=== PATIENT | female | born 1955 | race Caucasian/White ===

== ENCOUNTER → 2017-12-26 09:30 | Outpatient (CLI) | payer OTHER, SELFPAY ==
--- NOTE | 2017-12-26 09:34 | RAD_ITS ---
STUDY: X-RAY - SACRUM/COCCYX REASON FOR EXAM: Female, 62 years old. Pain in the lower back. TECHNIQUE: 3 view(s) of the sacrum and coccyx were obtained. COMPARISON: None. FINDINGS: Disc space narrowing at the L4-L5 and L5-S1 levels. There is degenerative arthrosis of the bilateral sacroiliac joints. Normal visualized sacral ala and fused sacral bodies. Normal sacrococcygeal junction with a normal angulation. Normal coccygeal segments. The presacral soft tissue structures are unremarkable. 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 Electronically Signed: Ankur Galeano MD at 11:32 EST Tel [phone], Service support ,
--- NOTE | 2017-12-26 09:38 | RAD_ITS ---
STUDY: X-RAY - CERVICAL SPINE REASON FOR EXAM: Female, 62 years old. Pain. Right upper extremity pain as well. TECHNIQUE: 6 view(s) of the cervical spine were obtained including oblique views. COMPARISON: None FINDINGS: Normal anterior atlantoaxial articulation. Normal odontoid process. There is straightening of the normal cervical lordosis. There is multi-level endplate spondylosis. There is multi-level degenerative disc disease with multilevel disc space narrowing. Normal visualized intervertebral neuroforamina. The soft tissue structures are unremarkable. RAD/Cerv Spine 4 or 5 Views IMPRESSION: Straightening of the normal cervical lordosis. Multilevel disc space narrowing and spondylosis. Electronically Signed: Ankur Galeano MD at 11:33 EST Tel [phone], Service support ,
== END ==
PROVIDERS: Family Provider Family Medicine; PCP Family Medicine; Visit Provider Family Medicine
DX: M50.30 Other cervical disc degeneration, unspecified cervical region (principal)
CPT/HCPCS: 72050; 72220

== ENCOUNTER → 2018-02-15 16:24 | Outpatient (CLI) | payer OTHER, SELFPAY ==
--- NOTE | 2018-02-15 16:28 | RAD_ITS ---
STUDY: X-RAY CHEST REASON FOR EXAM: Female, 62 years old. Chest tightness x2 weeks TECHNIQUE: PA and lateral views of the chest. COMPARISON: None. FINDINGS: The lungs are clear and expanded. There is no demonstrated pleural abnormality. Normal size heart. Normal mediastinum and boris. Normal visualized pulmonary arteries. Normal visualized aortic arch and descending thoracic aorta. There are diffuse degenerative changes of the visualized thoracic spine. Normal visualized ribs, clavicles, and shoulders. There is no demonstrated abnormality of the visualized soft tissue structures of the upper abdomen. RAD/Chest PA and Lateral IMPRESSION: Degenerative changes, as described above. No demonstrated acute cardiopulmonary process. Electronically Signed: Caleb Cuenca MD at 17:00 EDT , Service support ,
== END ==
PROVIDERS: Family Provider Family Medicine; PCP Family Medicine; Visit Provider Nurse Practitioner Adult Health
DX: R05 Cough (principal)
CPT/HCPCS: 71046

== ENCOUNTER → 2018-07-07 12:58 | Outpatient (CLI) | payer OTHER, SELFPAY | PROVIDERS: Family Provider Family Medicine; PCP Family Medicine; Visit Provider Family Medicine | DX: I83.93 Asymptomatic varicose veins of bilateral lower extremities (principal) | CPT/HCPCS: 93970 ==

== ENCOUNTER → 2018-08-31 13:48 | Outpatient (CLI) | payer OTHER, SELFPAY ==
--- NOTE | 2018-08-31 14:05 | US_ITS ---
STUDY: ULTRASOUND TRANSVAGINAL CLINICAL: Female, 63 years old. Ovarian cyst TECHNIQUE: Transvaginal # of Images: 36 COMPARISON: None. FINDINGS: The uterus has been removed. Normal right ovary, measuring 1.3 x 1.4 x 0.4 cm. There are multiple follicles without a dominant cyst. Normal left ovary, measuring 1.3 x 1 x 0.5 cm. There are multiple follicles without a dominant cyst. There is no free fluid in the pelvis. US/Transvaginal Non- IMPRESSION: Unremarkable study. There is no evidence of ovarian cysts. Electronically Signed: Reed Laguerre MD at 14:58 EDT Tel , Service support ,
== END ==
PROVIDERS: Family Provider Family Medicine; PCP Family Medicine; Referring Provider Family Medicine; Visit Provider Family Medicine
DX: N83.201 Unspecified ovarian cyst, right side (principal); N83.202 Unspecified ovarian cyst, left side
CPT/HCPCS: 76830

== ENCOUNTER → 2018-10-10 11:06 | Outpatient (CLI) | payer OTHER, SELFPAY ==
[2018-10-10 12:55] LABS: ALB/GLOB Ratio 1.1 RATIO (0.9-2.4); AST(SGOT) 17 U/L (15-37); Alanine Aminotransfer ALT/SGPT 32 U/L (13-56); Albumin, Serum 3.6 g/dL (3.2-5.0); Alkaline Phosphatase 76 U/L (45-117); Anion Gap 8 (5-15); BUN 14 mg/dL (7-18); BUN/Creat Ratio 16.9 RATIO (10-20); Calcium,Total 8.9 mg/dL (8.5-10.1); Chloride 104 mmol/L (98-107); Cholesterol 303 mg/dL (200); Creatinine, Serum 0.83 mg/dL (0.55-1.02); EST Glomerular Filtration Rate 74 mL/min (>60); Est Glom Filt Rate - Afr Amer 90 mL/min (>60); Globulin 3.4 g/dL (2.2-4.2); Glucose 106 mg/dL (74-106); High Density Lipoprotein 53 mg/dL; Potassium 4.1 mmol/L (3.5-5.1); Sodium Level 141 mmol/L (136-145); T4 Free Direct 1.19 ng/dL (0.76-1.46); Triglycerides 183 mg/dL; Very Low Density Lipoprotein 37 mg/dL (5-40)
[2018-10-10 13:06] LABS: Vitamin D,25 Hydroxy 30.1 ng/mL (29.95-100.01)
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
== END ==
PROVIDERS: Family Provider Family Medicine; PCP Family Medicine; Referring Provider Family Medicine; Visit Provider Family Medicine
DX: E03.9 Hypothyroidism, unspecified (principal); F32.9 Major depressive disorder, single episode, unspecified; Z13.220 Encounter for screening for lipoid disorders; Z13.1 Encounter for screening for diabetes mellitus
CPT/HCPCS: 36415; 80053; 80061; 82306; 84439; 84443

== ENCOUNTER → 2018-11-27 08:39 | Outpatient (CLI) | payer OTHER, SELFPAY ==
[2018-10-26 15:02] VITALS: BMI 33.0
--- NOTE | 2018-11-27 08:42 | BI_ITS ---
MAMMOGRAPHY - BILATERAL SCREENING REASON FOR EXAM: Female, 63 years old. Routine annual screening examination. PERTINENT HISTORY: Aunt with breast cancer. Chronic right nipple inversion. TECHNIQUE: Digital bilateral breast reji (3D mammographic acquisition) in the CC and MLO projections. 2-D mediolateral oblique (MLO) and craniocaudad (CC) views of both breasts were obtained. CAD: Full Field Digital Mammography with Computer Added Detection was performed. COMPARISON: Comparison is made with prior study dated February 04, 2017 and October 18, 2014. FINDINGS: Breast Composition: There are scattered areas of fibroglandular density. There are no dominant masses or suspicious calcifications. Stable inversion of the right nipple. No other significant abnormalities are identified. There has been no significant change since the prior study. BI/SCREEN MAMM (CAD) W/REJI BILAT IMPRESSION: Stable bilateral screening mammogram. Yearly follow-up mammogram recommended. (A) ASSESSMENT CATEGORY: BIRADS Category 2: Benign. A letter regarding these results will be sent to the patient by the facility within 30 days. Approximately 10% of breast cancers are not detected by mammography. A normal mammogram should not delay biopsy of a clinically suspicious abnormality. [id number] Electronically Signed: Ankur Galeano MD at 12:16 EST Tel [phone], Service support ,
== END ==
PROVIDERS: Family Provider Family Medicine; PCP Family Medicine; Referring Provider Family Medicine; Visit Provider Family Medicine
DX: Z12.31 Encounter for screening mammogram for malignant neoplasm of breast (principal)
CPT/HCPCS: 77063; 77067

== ENCOUNTER → 2019-02-19 09:57 | Outpatient (CLI) | payer OTHER, SELFPAY ==
[2019-01-24 09:14] VITALS: BMI 33.0
[2019-02-19 13:01] LABS: Cholesterol 245 mg/dL (200); Free T3 2.7 pg/mL (2.18-3.98); High Density Lipoprotein 57 mg/dL; T4 Free Direct 1.02 ng/dL (0.76-1.46); Thyroid Stim Hormone (TSH) 0.34 uIU/mL (0.358-3.74); Triglycerides 128 mg/dL; Very Low Density Lipoprotein 26 mg/dL (5-40)
== END ==
PROVIDERS: Family Provider Family Medicine; PCP Family Medicine; Visit Provider Family Medicine
DX: E78.5 Hyperlipidemia, unspecified (principal)
CPT/HCPCS: 36415; 80061; 84439; 84443; 84481

== ENCOUNTER → 2019-08-31 08:34 | Outpatient (CLI) | payer OTHER, SELFPAY ==
[2019-01-24 09:14] VITALS: BMI 33.0
[2019-08-31 10:43] LABS: Cholesterol 241 mg/dL (200); High Density Lipoprotein 47 mg/dL; Triglycerides 148 mg/dL; Very Low Density Lipoprotein 30 mg/dL (5-40)
== END ==
PROVIDERS: Family Medicine; Family Provider Family Medicine; PCP Family Medicine; Referring Provider Family Medicine; Visit Provider Family Medicine
DX: E78.5 Hyperlipidemia, unspecified (principal)
CPT/HCPCS: 36415; 80061

== ENCOUNTER → 2019-09-11 15:44 | Outpatient (CLI) | payer OTHER, SELFPAY ==
[2019-01-24 09:14] VITALS: BMI 33.0
--- NOTE | 2019-09-11 15:47 | RAD_ITS ---
HISTORY: leg pain TECHNIQUE: Lumbar spine 5 views Number of images including paperwork: 5 COMPARISON: None FINDINGS: VERTEBRAE: No acute fracture. VERTEBRAL ALIGNMENT: No traumatic subluxation. DISKS AND JOINTS: Disc heights are maintained. Facet arthropathy. SOFT TISSUES: Unremarkable paraspinous soft tissues. RAD/L/S Spine Min 4 Views IMPRESSION: 1. No acute abnormality. 2. Facet arthropathy. at 0109 Reported and signed by: Tawana Shanks MD Electronically Signed: Tawana Shanks MD at 1:09 EDT Tel , Service support ,
[2019-09-11 18:02] LABS: Absolute Lymphocyte Count 2.07 X10^3/uL (0.83-4.51); Absolute Neutrophil Count 3.8 X10^3/uL (2.0-7.7); Basophil# 0.05 X10^3/uL; Basophil% 0.8 % (0-1); Eosinophil# 0.21 X10^3/uL; Eosinophils% 3.2 % (0-5); Hematocrit 42.5 % (37-47); Hemoglobin 13.1 g/dL (12.0-15.0); Lymphocyte # 2.07 X10^3/ul (4.0); Lymphocyte % 31.2 % (19-41); Mean Corp Hgb Conc 30.8 g/dL (32-36); Mean Corpuscular Hgb 28.9 pg (27.0-32.0); Mean Corpuscular Volume 93.8 fL (81-99); Mean Platelet Vol. 10.2 fl (6.2-12.0); Monocyte# 0.48 X10^3/uL; Monocyte% 7.2 % (0-10); NRBC Flagged by Analyzer 0 % (0-5); Neutrophil # 3.82 X10^3/uL (2.7-7.7); Neutrophil % 57.4 % (47-70); Platelet Count 227 K/mm3 (150-450); RBC Distribution Width CV 13.7 % (11.6-14.6); Red Blood Count 4.53 M/mm3 (4.2-5.4); White Blood Count 6.6 K/mm3 (4.4-11.0)
[2019-09-11 18:18] LABS: Vitamin B12 708 pg/mL (211-911); Vitamin D,25 Hydroxy 34.1 ng/mL (29.95-100.01)
[2019-09-11 18:32] LABS: ALB/GLOB Ratio 1.2 RATIO (0.9-2.4); AST(SGOT) 14 U/L (15-37); Alanine Aminotransfer ALT/SGPT 21 U/L (13-56); Albumin, Serum 3.8 g/dL (3.2-5.0); Alkaline Phosphatase 79 U/L (45-117); Anion Gap 5 (5-15); BUN 14 mg/dL (7-18); BUN/Creat Ratio 18.5 RATIO (10-20); Calcium,Total 9.1 mg/dL (8.5-10.1); Chloride 106 mmol/L (98-107); Creatinine, Serum 0.76 mg/dL (0.55-1.02); EST Glomerular Filtration Rate 82 mL/min (>60); Est Glom Filt Rate - Afr Amer 100 mL/min (>60); Ferritin 48 ng/mL (8-252); Free T3 2.6 pg/mL (2.18-3.98); Globulin 3.3 g/dL (2.2-4.2); Glucose 105 mg/dL (74-106); Iron 71 ug/dL (50-170); Potassium 3.8 mmol/L (3.5-5.1); Protein, Total 7.1 g/dL (6.4-8.2); Sodium Level 141 mmol/L (136-145); T4 Free Direct 1.04 ng/dL (0.76-1.46); Thyroid Stim Hormone (TSH) 1.68 uIU/mL (0.358-3.74)
== END ==
PROVIDERS: Family Provider Family Medicine; PCP Family Medicine; Referring Provider Family Medicine; Visit Provider Family Medicine
DX: M79.606 Pain in leg, unspecified (principal); R53.83 Other fatigue; E03.9 Hypothyroidism, unspecified
CPT/HCPCS: 36415; 72110; 80053; 82306; 82607; 82728; 83540; 84439; 84443; 84481; 85025

== ENCOUNTER → 2020-03-12 09:27 | Outpatient (CLI) | payer OTHER, SELFPAY ==
[2019-12-18 11:17] VITALS: BMI 33.0
[2020-03-12 10:04] LABS: Hematocrit 43.3 % (37-47); Hemoglobin 13.2 g/dL (12.0-15.0); Mean Corp Hgb Conc 30.5 g/dL (32-36); Mean Corpuscular Hgb 28.6 pg (27.0-32.0); Mean Corpuscular Volume 93.7 fL (81-99); Mean Platelet Vol. 9.9 fl (6.2-12.0); Platelet Count 261 K/mm3 (150-450); RBC Distribution Width CV 14.2 % (11.6-14.6); RBC Distribution Width SD 48.9 fl (35.1-43.9); Red Blood Count 4.62 M/mm3 (4.2-5.4)
[2020-03-12 10:19] LABS: Vitamin D,25 Hydroxy 40.4 ng/mL
[2020-03-12 10:26] LABS: Cholesterol 267 mg/dL (200); High Density Lipoprotein 59 mg/dL; Thyroid Stim Hormone (TSH) 0.99 uIU/mL (0.358-3.74); Triglycerides 137 mg/dL; Very Low Density Lipoprotein 27 mg/dL (5-40)
== END ==
PROVIDERS: PCP Family Medicine; Referring Provider Family Medicine; Visit Provider Family Medicine
DX: E78.5 Hyperlipidemia, unspecified (principal); E03.9 Hypothyroidism, unspecified; E55.9 Vitamin D deficiency, unspecified; F32.9 Major depressive disorder, single episode, unspecified
CPT/HCPCS: 36415; 80061; 82306; 84443; 85027

== ENCOUNTER → 2020-09-12 09:19 | Outpatient (CLI) | payer OTHER, SELFPAY ==
[2019-12-18 11:17] VITALS: BMI 33.0
[2020-09-12 13:40] LABS: Vitamin D,25 Hydroxy 41.2 ng/mL
[2020-09-12 13:53] LABS: Anion Gap 6 (5-15); BUN 11 mg/dL (7-18); BUN/Creat Ratio 13.9 RATIO (10-20); Calcium,Total 8.7 mg/dL (8.5-10.1); Chloride 104 mmol/L (98-107); Cholesterol 257 mg/dL (200); Creatinine, Serum 0.79 mg/dL (0.55-1.02); EST Glomerular Filtration Rate 78 mL/min (>60); Est Glom Filt Rate - Afr Amer 95 mL/min (>60); Free T3 2.5 pg/mL (2.18-3.98); Glucose 107 mg/dL (74-106); High Density Lipoprotein 55 mg/dL; Potassium 4.1 mmol/L (3.5-5.1); Sodium Level 141 mmol/L (136-145); T4 Total, Thyroxin 11.2 ug/dL (4.8-13.9); Thyroid Stim Hormone (TSH) 1.06 uIU/mL (0.358-3.74); Triglycerides 158 mg/dL; Very Low Density Lipoprotein 32 mg/dL (5-40)
== END ==
PROVIDERS: PCP Family Medicine; Referring Provider Family Medicine; Visit Provider Family Medicine
DX: Z00.00 Encounter for general adult medical examination without abnormal findings (principal); E03.9 Hypothyroidism, unspecified
CPT/HCPCS: 36415; 80048; 80061; 82306; 84436; 84443; 84481

== ENCOUNTER → 2021-02-13 08:09 | Outpatient (CLI) | payer OTHER, SELFPAY ==
[2019-12-18 11:17] VITALS: BMI 33.0
[2021-02-13 10:39] LABS: Hemoglobin A1c 5.8 % (3.8-5.6)
[2021-02-13 10:41] LABS: Anion Gap 4 (5-15); BUN 14 mg/dL (7-18); BUN/Creat Ratio 17.9 RATIO (10-20); Calcium,Total 8.8 mg/dL (8.5-10.1); Chloride 105 mmol/L (98-107); Cholesterol 259 mg/dL (200); Creatinine, Serum 0.78 mg/dL (0.55-1.02); EST Glomerular Filtration Rate 79 mL/min (>60); Est Glom Filt Rate - Afr Amer 95 mL/min (>60); Glucose 108 mg/dL (74-106); High Density Lipoprotein 55 mg/dL; Potassium 3.5 mmol/L (3.5-5.1); Sodium Level 139 mmol/L (136-145); Triglycerides 172 mg/dL; Very Low Density Lipoprotein 34 mg/dL (5-40)
== END ==
PROVIDERS: PCP Family Medicine; Referring Provider Family Medicine; Visit Provider Family Medicine
DX: E78.5 Hyperlipidemia, unspecified (principal); R73.01 Impaired fasting glucose
CPT/HCPCS: 36415; 80048; 80061; 83036

== ENCOUNTER → 2021-04-20 14:32 | Outpatient (CLI) | payer OTHER, SELFPAY ==
[2019-12-18 11:17] VITALS: BMI 33.0
[2021-04-20 17:44] LABS: Absolute Lymphocyte Count 1.81 X10^3/uL (0.83-4.51); Absolute Neutrophil Count 4.1 X10^3/uL (2.0-7.7); Basophil# 0.05 X10^3/uL; Basophil% 0.7 % (0-1); Eosinophil# 0.24 X10^3/uL; Eosinophils% 3.6 % (0-5); Hematocrit 43.5 % (37-47); Hemoglobin 13.8 g/dL (12.0-15.0); Lymphocyte # 1.81 X10^3/ul (0.83-4.51); Lymphocyte % 26.9 % (19-41); Mean Corp Hgb Conc 31.7 g/dL (32-36); Mean Corpuscular Hgb 30.3 pg (27.0-32.0); Mean Corpuscular Volume 95.4 fL (81-99); Mean Platelet Vol. 10.7 fl (6.2-12.0); Monocyte# 0.47 X10^3/uL; NRBC Flagged by Analyzer 0 % (0-5); Neutrophil # 4.13 X10^3/uL (2.7-7.7); Neutrophil % 61.4 % (47-70); Platelet Count 266 K/mm3 (150-450); RBC Distribution Width SD 53.6 fl (35.1-43.9); Red Blood Count 4.56 M/mm3 (4.2-5.4); White Blood Count 6.7 K/mm3 (4.4-11.0)
[2021-04-20 18:00] LABS: Vitamin D,25 Hydroxy 36.1 ng/mL
[2021-04-20 18:05] LABS: Anion Gap 9 (5-15); BUN 12 mg/dL (7-18); BUN/Creat Ratio 14.8 RATIO (10-20); Calcium,Total 8.6 mg/dL (8.5-10.1); Chloride 103 mmol/L (98-107); Cholesterol 233 mg/dL (200); Creatinine, Serum 0.81 mg/dL (0.55-1.02); EST Glomerular Filtration Rate 76 mL/min (>60); Est Glom Filt Rate - Afr Amer 92 mL/min (>60); Free T3 1.9 pg/mL (2.18-3.98); Glucose 106 mg/dL (74-106); High Density Lipoprotein 54 mg/dL; Potassium 3.4 mmol/L (3.5-5.1); Sodium Level 143 mmol/L (136-145); T4 Free Direct 1.07 ng/dL (0.76-1.46); Triglycerides 306 mg/dL; Very Low Density Lipoprotein 61 mg/dL (5-40)
== END ==
PROVIDERS: PCP Family Medicine; Visit Provider Family Medicine
DX: Z01.818 Encounter for other preprocedural examination (principal); E03.9 Hypothyroidism, unspecified; E55.9 Vitamin D deficiency, unspecified
CPT/HCPCS: 36415; 80048; 80061; 82306; 84439; 84443; 84481; 85025

== ENCOUNTER → 2021-08-04 15:04 | Outpatient (CLI) | payer OTHER, SELFPAY ==
[2021-08-04 18:06] LABS: Absolute Neutrophil Count 3.5 X10^3/uL (2.0-7.7); Basophil# 0.05 X10^3/uL; Basophil% 0.8 % (0-1); Eosinophil# 0.21 X10^3/uL; Eosinophils% 3.5 % (0-5); Hematocrit 42.4 % (37-47); Hemoglobin 13.6 g/dL (12.0-15.0); Lymphocyte % 29.8 % (19-41); Mean Corp Hgb Conc 32.1 g/dL (32-36); Mean Corpuscular Hgb 30.4 pg (27.0-32.0); Mean Corpuscular Volume 94.9 fL (81-99); Mean Platelet Vol. 10.5 fl (6.2-12.0); Monocyte# 0.45 X10^3/uL; Monocyte% 7.4 % (0-10); NRBC Flagged by Analyzer 0 % (0-5); Neutrophil # 3.53 X10^3/uL (2.7-7.7); Neutrophil % 58.3 % (47-70); Platelet Count 251 K/mm3 (150-450); RBC Distribution Width CV 13.5 % (11.6-14.6); RBC Distribution Width SD 47.2 fl (35.1-43.9); Red Blood Count 4.47 M/mm3 (4.2-5.4); White Blood Count 6.1 K/mm3 (4.4-11.0)
[2021-08-04 18:20] LABS: Anion Gap 5 (5-15); BUN 11 mg/dL (7-18); BUN/Creat Ratio 14.9 RATIO (10-20); Calcium,Total 8.4 mg/dL (8.5-10.1); Chloride 106 mmol/L (98-107); Creatinine, Serum 0.74 mg/dL (0.55-1.02); EST Glomerular Filtration Rate 84 mL/min (>60); Est Glom Filt Rate - Afr Amer 102 mL/min (>60); Glucose 112 mg/dL (74-106); Potassium 3.8 mmol/L (3.5-5.1); Sodium Level 140 mmol/L (136-145)
== END ==
PROVIDERS: PCP Family Medicine; Referring Provider Family Medicine; Visit Provider Registered Nurse
DX: R42 Dizziness and giddiness (principal)
CPT/HCPCS: 36415; 80048; 85025

== ENCOUNTER 2021-08-12 09:00 | Outpatient (RCR) | payer OTHER, SELFPAY ==
--- NOTE | 2021-07-10 14:11 | HP.PTEVAL ---
Patient's Visit Information DEREK BURGOS is a 66 year old F referred to Physical Therapy by Dr. Yonatan Courtney MD with a diagnosis of Knee pain. Date of Evaluation: 07/10/21 Physical Therapist: Mack Berry, ANTHONYT, OCS, CSCS - Visit Plan Frequency: 2x /Week Duration: 4-6 Weeks Plan: 2x/week for 2-4 weeks for. 1. start in pool and please teach hip and knee strength as pt has access to pool and teach progression of speed and resistances in water adn give list for HEP 4 visists. Then EG to recheck adn consider gym ex for LE strength emphasizing hips abd/ext. progress to HEP - Subjective B knee chronic problems for a [id number] of years. Getting to bone on bone and trying to put off a replacement for a while. Needs to wait a year if possible. Had stem cell injections June 11. Helped. L knee feeling much better. R knee still has medial pain. OA in both knees. R kne epain to 2-10 with walking and hills and steps. L knee has been pretty good lately. Sleeping is OK rght now. H/O cortisone injections and other injections which helped at first but not lately. Enjoys biking ex and walking and gets in pool. 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 Knees limit certain poses and cannot pivot on knee, has to be very careful. Basic ADLs are getting done pretty good. Activities : would llike to bike outdoors more. - Pain R knee Pain Intensity (Out of 10): 2 Pain Intensity Range: 2, 4 Comment: Stiffness R knee - Objective Walk back to PT without antalgia and I. Trasnfers are I. Steps reciprocal with one rail, slightly weaker, antalgic R. AROM 0-120 B knees. Flexibility in surrounding muscles i good and AROM hips and ankles WNL. reflexes 2/3 patella and achilles B. Sensation LE WNL to gorss light touch. - ant drawer B, - bounce home B, - valgus and varus B, - patellar grind B. strength knee ext 4- B, knee flexion 4 B, hip abd 3+, hip ext 3 B, flexion 4- and opposite hip IR with this movement. ankle strength 4+/5 B. - Goals Goal 1:: I approp pool and home ex to strengthen legs and manage knee OA Goal Time Frame: 2-4 Weeks Goal 2:: Pain 0-1/10 at all times and 50% better/ Goal Time Frame: 2-4 Weeks - Rehabilitation Potential Physical Therapy Diagnosis: Knee pain degenerative changes and weakness Rehabilitation Potential: Fair - Anticipated Interventions Patient/Client Instruction: Educate patient on: Condition, Plan of Care For the Purpose of:: To decrease pain, To improve muscle performance and motor function Therapeutic Exercise to Include: Strength training, In an aquatic setting For the Purpose of:: To improve ability of physical actions for home/community/work/leisure, To improve gait and locomotor functions Thank you for the opportunity to evaluate your patient. For Medicare and Medicare HMO plans, please review the plan of care and approve it. It will need to be FAXED BACK to us at [phone] for Medicare purposes. For Medicare only, by signing this I certify the plan of care. Please let me know if there are questions or concerns regarding this plan of care. Physician Signature: Date:
--- NOTE | 2021-07-23 15:52 | HP.PTREVAL_ITS ---
Dr. Yonatan Courtney MD, It has been my pleasure to treat DEREK BURGOS over the last 6 visits for Knee pain. Please see the progress note below for an update on the physical therapy plan of care! Subjective: Has been very helpful. pain is better adn worse. Danyelle been doing more walking and so it is worse. 3/10 after walking. Intermittent. Sleep is OK. Feels good after getting out of water. Lasts hours to days. Objective/Function: 0-124 AROM B. Walks normal and I steps reciprocal with one rail without pain. Doing very well and feeling better. Willing and appropriate to progress to land based ex and eventually to I. Plan Plan: 2x/week for 3-4 weeks for teach gym based LE and core strength ex adn progress to I at our gym or community gym with list. Fair prognosis. Balance/Gait/Functional tests - Balance/Special Test Scores Lower Extremity Functional Score: 56 Goals Goal 1:: I approp pool and home ex to strengthen legs and manage knee OA Goal Time Frame: 2-4 Weeks Goal 2:: Pain 0-1/10 at all times and 50% better/ Goal Time Frame: 2-4 Weeks Goal Progress: Goal Met Goal 3:: I approp gym based core adn LE strength program without worsening knees or back. Goal Time Frame: 2-4 Weeks Goal Progress: NEW GOAL Anticipated Interventions Patient/Client Instruction: Educate patient on: Condition, Plan of Care For the Purpose of:: To decrease pain, To improve muscle performance and motor function Therapeutic Exercise to Include: Strength training, In an aquatic setting For the Purpose of:: To improve ability of physical actions for home/community/work/leisure, To improve gait and locomotor functions Please do not hesitate to contact me at [phone] by phone or Fax: if you have questions or concerns regarding this new plan of care! Sincerely, Mack Berry, DPT, OCS, CSCS
--- NOTE | 2021-08-12 09:47 | HP.PTDCSUM ---
It has been my pleasure to treat DEREK BURGOS referred by Dr. Yonatan Courtney MD, with the diagnosis of Knee pain for a total of 12 visit(s). Discharge Date: 08/12/21 Please see the following information for a summary of their discharge status. Subjective: Doing well. Good workout. Getting better. Left knee feels great. R knee better but twinges of pain centrally with steps or too much walking. Sometimes with pivotting. It is improving . Pain to 3/10 if overdoes it and gone with icing. Feels like I could continue at home. To doctor but not soon. R knee Pain Intensity (Out of 10): 2 LLE Pain Intensity (Out of 10): 0 Lumbar Spine Pain Intensity (Out of 10): 0 % Improvement: 85 Objective/Function: 0-135 aROM B knees and feels the same. Walks without antalgia and steps I without pain today. Pt feels comfortable with continuing via HEP pool and home. Goal 1:: I approp pool and home ex to strengthen legs and manage knee OA Goal Progress: Goal Met Goal 2:: Pain 0-1/10 at all times and 50% better/ Goal Progress: Goal Met Goal 3:: I approp gym based core adn LE strength program without worsening knees or back. Goal Progress: decided on home. I Plan: d/c to HEP If there are questions or concerns regarding this patient's physical therapy, please feel free to call me at [phone]. Thank you for the referral of this patient. Sincerely, Mack Berry, DPT, OCS, CSCS Balance/Gait/Functional tests - Balance/Special Test Scores Lower Extremity Functional Score: 61
== END 2021-08-12 14:08 | disposition home or self-care (01) ==
LOC: PT 09:00
PROVIDERS: PCP Family Medicine; Visit Provider Family Medicine
DX: M25.561 Pain in right knee (principal); M25.562 Pain in left knee; M17.9 Osteoarthritis of knee, unspecified
CPT/HCPCS: 97110; 97113; 97161; 97164

== ENCOUNTER → 2021-09-23 08:51 | Outpatient (CLI) | payer OTHER, SELFPAY ==
[2021-09-23 11:38] LABS: Anion Gap 6 (5-15); BUN 15 mg/dL (7-18); BUN/Creat Ratio 19.7 RATIO (10-20); Calcium,Total 8.9 mg/dL (8.5-10.1); Chloride 109 mmol/L (98-107); Cholesterol 173 mg/dL (200); Creatinine, Serum 0.76 mg/dL (0.55-1.02); EST Glomerular Filtration Rate 81 mL/min (>60); Est Glom Filt Rate - Afr Amer 98 mL/min (>60); Free T3 2.8 pg/mL (2.18-3.98); Glucose 106 mg/dL (74-106); High Density Lipoprotein 53 mg/dL; Potassium 3.8 mmol/L (3.5-5.1); Sodium Level 142 mmol/L (136-145); T4 Free Direct 1.21 ng/dL (0.76-1.46); Thyroid Stim Hormone (TSH) 0.33 uIU/mL (0.358-3.74); Triglycerides 89 mg/dL; Very Low Density Lipoprotein 18 mg/dL (5-40)
== END ==
PROVIDERS: PCP Family Medicine; Referring Provider Family Medicine; Visit Provider Family Medicine
DX: E78.5 Hyperlipidemia, unspecified (principal); E03.9 Hypothyroidism, unspecified
CPT/HCPCS: 36415; 80048; 80061; 84439; 84443; 84481

== ENCOUNTER → 2021-10-06 15:15 | Outpatient (CLI) | payer OTHER, SELFPAY ==
--- NOTE | 2021-10-06 15:24 | BD_ITS ---
STUDY: DUAL ENERGY X-RAY ABSORPTIOMETRY / DXA REASON FOR EXAM: Female, 66 years old. [id number]. Patient is postmenopausal. TECHNIQUE: Bone Mineral Density (BMD) measurements of lumbar spine and bilateral hips were obtained. COMPARISON: Comparison is made with prior examination of 03/15/2012. FINDINGS: Lumbar Spine (L1-L4): g/cm2 (1.112) / T-score (0.6) / Z-score (2.3) Findings are suggestive of normal bone density with a low fracture risk. Left Femur Total: g/cm2 (1.022) / T-score (0.7) / Z-score (1.8) Left Femoral Neck: g/cm2 (0.844) / T-score (0.0) / Z-score (1.4) Right Femur Total: g/cm2 (0.974) / T-score (0.3) / Z-score (1.4) Right Femoral Neck: g/cm2 (0.790) / T-score (-0.5) / Z-score (0.9) The T-Scores on the most recent prior examination were: Lumbar Spine (L1-L4): There has been worsening of bone density since the previous examination. Left Femur Total: which represents an improvement of 1.6%. Right Femur Total: which represents an improvement of 0.3%. BD/Dexa Bone Density Study IMPRESSION: The patient is considered normal as outlined below according to World [place] Organization (WHO) criteria with a low fracture risk. There has been improvement of bone density since the previous examination. Reference Information: The T-score is the number of standard deviations above or below the standard which is normal for young adults at their peak bone mineral density. The World Health Organization (WHO) interprets the T-scores as follows: Above -1 Normal bone density Between -1 and -2.5 Osteopenia Equal to / or below -2.5 Osteoporosis As a practical clinical guideline, osteopenia may be graded as follows: Mild -1 through -1.5 Moderate -1.6 through -2.0 Severe -2.1 through -2.4 The Z-score is the number of standard deviations above or below age-matched controls. A Z-score of less than -1.5 would be considered abnormal. References: 1. NIH Osteoporosis and Related Bone Diseases www osteo.org 2. International Society for Clinical Densitometry www iscd.org 3. National Osteoporosis Foundation www nof.org Electronically Signed: Ankur Galeano MD at 11:15 EST , Service support ,
--- NOTE | 2021-10-06 15:37 | BI_ITS ---
MAMMOGRAPHY - BILATERAL SCREENING 3-D TOMOSYNTHESIS REASON FOR EXAM: Female, 66 years old. Routine screening PERTINENT HISTORY: Aunt with breast cancer.. TECHNIQUE: 2-D mammograms and 3-D Tomosynthesis of the breast (s) were performed. CAD was performed. COMPARISON: 11/27/2018 FINDINGS: The breast composition is almost entirely fat. Scattered benign calcifications are seen. No dense spiculated masses or suspicious microcalcifications are identified. No architectural distortion is identified. There is no skin thickening or retraction. There has been no significant change since the prior study. BI/SCRN MAMM (CAD)W/REJI BILAT IMPRESSION: No mammographic signs of malignancy. Routine yearly mammograms recommended. ASSESSMENT CATEGORY: BIRADS Category 1: Negative. A letter regarding these results will be sent to the patient by the facility within 30 days. FOLLOW UP RECOMMENDATION: Yearly follow up mammogram recommended. (A) Approximately 10% of breast cancers are not detected by mammography. A normal mammogram should not delay biopsy of a clinically suspicious abnormality. Electronically Signed: Jacoby Garcia MD at 17:19 EST , Service support ,
== END ==
PROVIDERS: PCP Family Medicine; Referring Provider Family Medicine; Visit Provider Family Medicine
DX: Z12.31 Encounter for screening mammogram for malignant neoplasm of breast (principal); Z78.0 Asymptomatic menopausal state; Z80.3 Family history of malignant neoplasm of breast
CPT/HCPCS: 77063; 77067; 77080

== ENCOUNTER → 2022-03-18 | Outpatient (CLI) | payer OTHER, SELFPAY ==
[2022-03-18 11:01] LABS: ALB/GLOB Ratio 1.1 RATIO (0.9-2.4); AST(SGOT) 16 U/L (15-37); Alanine Aminotransfer ALT/SGPT 28 U/L (13-56); Albumin, Serum 3.7 g/dL (3.2-5.0); Alkaline Phosphatase 72 U/L (45-117); Anion Gap 6 (5-15); BUN 13 mg/dL (7-18); BUN/Creat Ratio 17.9 RATIO (10-20); Calcium,Total 8.9 mg/dL (8.5-10.1); Chloride 106 mmol/L (98-107); Cholesterol 233 mg/dL (200); Creatinine, Serum 0.73 mg/dL (0.55-1.02); EST Glomerular Filtration Rate 85 mL/min (>60); Est Glom Filt Rate - Afr Amer 103 mL/min (>60); Free T3 2.9 pg/mL (2.18-3.98); Globulin 3.3 g/dL (2.2-4.2); Glucose 108 mg/dL (74-106); High Density Lipoprotein 53 mg/dL; Potassium 3.7 mmol/L (3.5-5.1); Sodium Level 139 mmol/L (136-145); T4 Free Direct 1.32 ng/dL (0.76-1.46); Thyroid Stim Hormone (TSH) 0.38 uIU/mL (0.358-3.74); Triglycerides 142 mg/dL; Very Low Density Lipoprotein 28 mg/dL (5-40)
== END | disposition home or self-care (01) ==
LOC: MFPLAB 09:27
PROVIDERS: PCP Family Medicine; Referring Provider Family Medicine; Visit Provider Family Medicine
DX: E03.9 Hypothyroidism, unspecified (principal); E78.5 Hyperlipidemia, unspecified
CPT/HCPCS: 36415; 80053; 80061; 84439; 84443; 84481

== ENCOUNTER → 2022-05-31 | Outpatient (CLI) | payer OTHER, SELFPAY ==
--- NOTE | 2022-05-31 12:46 | MRI_ITS ---
EXAM: MR CERVICAL SPINE WITHOUT INTRAVENOUS CONTRAST CLINICAL INDICATION: KNIGHT, neck pain TECHNIQUE: Multiplanar and multisequence MR images of the cervical spine without intravenous contrast were performed. This report was created using [employer] report generation technology. COMPARISON: None. FINDINGS: VERTEBRAE: See below. SPINAL CORD: Unremarkable in signal and morphology. SOFT TISSUES: Unremarkable. No prevertebral soft tissue swelling. LYMPH NODES: Unremarkable. There is no cervical adenopathy. DISCS/SPINAL CANAL/NEURAL FORAMINA: C2-C3: Unremarkable. Normal disc height and morphology. Normal spinal canal. Normal neuroforamina. C3-C4: Unremarkable. Normal disc height and morphology. Normal spinal canal. Normal neuroforamina. C4-C5: C4-5: Loss of intervertebral disc height. There is endplate spondylosis of the vertebral body. Normal central canal and intervertebral neuroforamina. There is bilateral facet arthropathy. Posterior disc bulge. C5-C6: C5-6: Loss of intervertebral disc height. There is endplate spondylosis of the vertebral body. Narrowing of the bilateral intervertebral neuroforamina. There is bilateral facet arthropathy. Posterior disc bulge osteophyte complex causing mild compression of the spinal cord. Narrowing of the right lateral recess. Mild spinal stenosis. C6-C7: C6-7: Loss of intervertebral disc height. There is endplate spondylosis of the vertebral body. Normal central canal and intervertebral neuroforamina. There is bilateral facet arthropathy. C7-T1: Unremarkable. Normal disc height and morphology. Normal spinal canal. Normal neuroforamina. MRI/Spine Cervical (Routine) IMPRESSION: C5-6: Loss of intervertebral disc height. There is endplate spondylosis of the vertebral body. Narrowing of the bilateral intervertebral neuroforamina. There is bilateral facet arthropathy. Posterior disc bulge osteophyte complex causing mild compression of the spinal cord. Narrowing of the right lateral recess. Mild spinal stenosis. Electronically Signed: Sanjeev Monroy MD at 16:38 EDT ,
== END | disposition home or self-care (01) ==
PROVIDERS: PCP Family Medicine; Referring Provider Family Medicine; Visit Provider Family Medicine
DX: R51.9 Headache, unspecified (principal)
CPT/HCPCS: 72141

== ENCOUNTER → 2022-09-16 | Outpatient (CLI) | payer MEDICARE, SELFPAY ==
[2022-09-16 11:13] LABS: Anion Gap 6 (5-15); BUN 13 mg/dL (7-18); BUN/Creat Ratio 19.5 RATIO (10-20); Calcium,Total 9.2 mg/dL (8.5-10.1); Chloride 106 mmol/L (98-107); Cholesterol 286 mg/dL (200); Creatinine, Serum 0.67 mg/dL (0.55-1.02); EST Glomerular Filtration Rate 95 mL/min (>60); Est Glom Filt Rate - Afr Amer 114 mL/min (>60); Free T3 2.9 pg/mL (2.18-3.98); Glucose 108 mg/dL (74-106); High Density Lipoprotein 56 mg/dL; Potassium 3.9 mmol/L (3.5-5.1); Sodium Level 140 mmol/L (136-145); T4 Free Direct 1.12 ng/dL (0.76-1.46); Thyroid Stim Hormone (TSH) 0.99 uIU/mL (0.358-3.74); Triglycerides 218 mg/dL; Very Low Density Lipoprotein 44 mg/dL (5-40)
== END | disposition home or self-care (01) ==
LOC: MFPLAB 09:17
PROVIDERS: PCP Family Medicine; Referring Provider Family Medicine; Visit Provider Family Medicine
DX: E78.5 Hyperlipidemia, unspecified (principal); E03.9 Hypothyroidism, unspecified; R73.01 Impaired fasting glucose
CPT/HCPCS: 36415; 80048; 80061; 84439; 84443; 84481

== ENCOUNTER 2022-09-20 11:00 | Outpatient (RCR) | payer MEDICARE, SELFPAY ==
--- NOTE | 2022-08-18 12:03 | HP.PTEVAL_ITS ---
Patient's Visit Information DEREK BURGOS is a 67 year old F referred to Physical Therapy by KELSIE DUARTE with a diagnosis of R TKA 08/03/22. Date of Evaluation: 08/18/22 Physical Therapist: Sanjeev Olsen, PT, ATC - Visit Plan Frequency: 2-3x /Week Duration: 4-6 Weeks Plan: R knee PROM/MOBS, stretching and strengthening, balance and proprio, core strengthening, bike, and HEP - Subjective DOS: 08/03/22. Pt reports she had chronic R knee pain for several years . Pt reports she went through several injections and stem cells until finally having her surgery a couple weeks ago. Pt reports she is very glad to have had the surgery at this time. Pt notes her post surgical pain is much less than the pain she had prior to surgery. Pt reports she has had home health for the past 2 weeks. Pt notes she was able to achieve 90 degrees of R knee flexion with home health. Pt denies tingling or numbness in R LE at this time. Pt notes sig sleep difficulty at this time secondary to pain. Pt reports she has stairs at home she needs to be able to negotiate, but has not had to at this time. Pt reports she was an avid walker prior to this surgery and would like to be able to walk again. 3/10 pain at worst, 8/10 pain at worst. - Pain R knee Pain Intensity (Out of 10): 3 Pain Intensity Range: 8 - Objective Neuro: B LE sensation is WNL to light touch. Girth at joint line: R knee 45 cm, L knee 43 cm. ROM: R knee 0-15-90, L knee 0-130. MMT: L knee flexion 35, extension 37, R knee flexion 18, extension 10 #F. TU.35 - Balance/Special Test Scores Lower Extremity Functional Score: 14 - Goals Goal 1:: Decrease R knee pain x 50% to aid with sleep Goal Time Frame: 4-6 Weeks Goal 2:: Increase R knee ROM x 25-30 degrees to aid with restoring a more normalized gait pattern Goal Time Frame: 4-6 Weeks Goal 3:: Increase R knee MMT x 10 #F to aid with stair negotiation Goal Time Frame: 4-6 Weeks Goal 4:: I with HEP Goal Time Frame: 4-6 Weeks - Rehabilitation Potential Physical Therapy Diagnosis: Pt has R knee pain, weakness, and limited ROM secondary to R TKA Rehabilitation Potential: Good - Anticipated Interventions Patient/Client Instruction: Educate patient on: Condition, Plan of Care For the Purpose of:: To improve self management Therapeutic Exercise to Include: Strength training, Endurance training, Balance training, Flexibilty training, Passive ROM, Active ROM, Dynamic Lumbar Stabilization For the Purpose of:: To decrease pain, To increase ROM, To improve muscle performance and motor function Cryotherapy (ice pack, ice massage): Yes For the Purpose of:: To decrease pain Thank you for the opportunity to evaluate your patient. For Medicare and Medicare HMO plans, please review the plan of care and approve it. It will need to be FAXED BACK to us at [phone] for Medicare purposes. For Medicare only, by signing this I certify the plan of care. Please let me know if there are questions or concerns regarding this plan of care. Physician Signature: Date:
--- NOTE | 2022-09-20 11:37 | HP.PTREVAL_ITS ---
KELSIE GERALD, It has been my pleasure to treat DEREK BURGOS over the last 11 visits for R TKA 08/03/22. Please see the progress note below for an update on the physical therapy plan of care! Subjective: I am stiff and sore today Objective/Function: R knee pain ranges from 2-6/10. R knee MMT: flex= 25, ext= 32 #F. R knee ROM: 0-10-127. Pt is I with HEP. Rx goals achieved Plan Plan: Discharge or F/U in one month Balance/Gait/Functional tests - Balance/Special Test Scores Lower Extremity Functional Score: 50 Goals Goal 1:: Decrease R knee pain x 50% to aid with sleep Goal Time Frame: 4-6 Weeks Goal Progress: Goal Met Goal 2:: Increase R knee ROM x 25-30 degrees to aid with restoring a more nor malized gait pattern Goal Time Frame: 4-6 Weeks Goal Progress: Goal Met Goal 3:: Increase R knee MMT x 10 #F to aid with stair negotiation Goal Time Frame: 4-6 Weeks Goal Progress: Goal Met Goal 4:: I with HEP Goal Time Frame: 4-6 Weeks Goal Progress: Goal Met Anticipated Interventions Patient/Client Instruction: Educate patient on: Condition, Plan of Care For the Purpose of:: To improve self management Therapeutic Exercise to Include: Strength training, Endurance training, Balance training, Flexibilty training, Passive ROM, Active ROM, Dynamic Lumbar Stabilization For the Purpose of:: To decrease pain, To increase ROM, To improve muscle performance and motor function Cryotherapy (ice pack, ice massage): Yes For the Purpose of:: To decrease pain Please do not hesitate to contact me at [phone] by phone or Fax: if you have questions or concerns regarding this new plan of care! Sincerely, Sanjeev Olsen, PT, ATC
== END 2022-09-20 19:00 | disposition home or self-care (01) ==
LOC: PT 11:00
PROVIDERS: PCP Family Medicine
DX: Z96.651 Presence of right artificial knee joint (principal)
CPT/HCPCS: 97110; 97140; 97161; 97164

== ENCOUNTER → 2022-10-15 | Outpatient (CLI) | payer MEDICARE, SELFPAY ==
--- NOTE | 2022-10-15 12:44 | VDLE_ITS ---
Reason For Study: s/p Rt TKR RIGHT CFV is compressible, spontaneous, phasic, competent and demonstrates normal augmentation. FV is compressible, spontaneous, phasic, competent and demonstrates normal augmentation. POP V is compressible, spontaneous, phasic, competent and demonstrates normal augmentation. T/P Trunk is compressible. PTV is compressible. RT PerV is compressible. Rt GSV is not visualized s/p EVLA Hypoechoic, non vascular structure noted Rt Pop Fossa measuring 1.96cm x 1.52cm. Procedure This is a venous duplex using B-mode, color flow and spectral Doppler. Exam performed in department. A preliminary report was called and/or faxed to Kelsie Duarte. VL/Venous Duplex US, Unilateral Interpretation Summary There is no evidence of right lower extremity deep vein thrombosis. Right great saphenous vein is not visualized. There is a history of endovascular ablation. Hypoechoic right popliteal fossa structure measuring 1.96 x 1.52 cm. Clinical c orrelation would be appropriate. Ordering Physician: KELSIE DUARTE Referring Physician: Yonatan Courtney Performed By: Keturah Hardwick, SAM, RVT
== END | disposition home or self-care (01) ==
PROVIDERS: PCP Family Medicine
DX: M79.89 Other specified soft tissue disorders (principal); Z96.651 Presence of right artificial knee joint
CPT/HCPCS: 93971

== ENCOUNTER → 2022-12-23 | Outpatient (CLI) | payer MEDICARE, SELFPAY ==
[2022-12-23 12:26] LABS: BUN 14 mg/dL (7-18); Creatinine, Serum 0.75 mg/dL (0.55-1.02); Glucose 120 mg/dL (74-106)
[2022-12-23 12:27] LABS: Anion Gap 7 (5-15); BUN/Creat Ratio 18.8 RATIO (10-20); Calcium,Total 9.2 mg/dL (8.5-10.1); Chloride 104 mmol/L (98-107); EST Glomerular Filtration Rate 83 mL/min (>60); Est Glom Filt Rate - Afr Amer 100 mL/min (>60); Free T3 2.7 pg/mL (2.18-3.98); Potassium 3.9 mmol/L (3.5-5.1); Sodium Level 140 mmol/L (136-145); T4 Free Direct 1.18 ng/dL (0.76-1.46); Thyroid Stim Hormone (TSH) 1.54 uIU/mL (0.358-3.74)
[2022-12-23 12:33] LABS: Hemoglobin A1c 5.8 % (3.8-5.6)
== END | disposition home or self-care (01) ==
LOC: MTLAB 11:05
PROVIDERS: PCP Family Medicine; Referring Provider Family Medicine; Visit Provider Family Medicine
DX: Z00.00 Encounter for general adult medical examination without abnormal findings (principal); E03.9 Hypothyroidism, unspecified
CPT/HCPCS: 36415; 80048; 83036; 84439; 84443; 84481

== ENCOUNTER → 2023-03-08 | Outpatient (CLI) | payer MEDICARE, SELFPAY ==
[2023-03-08 15:46] LABS: Hematocrit 41.4 % (37-47); Hemoglobin 13.1 g/dL (12.0-15.0); Mean Corp Hgb Conc 31.6 g/dL (32-36); Mean Corpuscular Hgb 30.5 pg (27.0-32.0); Mean Corpuscular Volume 96.5 fL (81-99); Mean Platelet Vol. 10.1 fl (6.2-12.0); Platelet Count 236 K/mm3 (150-450); RBC Distribution Width CV 13.7 % (11.6-14.6); RBC Distribution Width SD 49.3 fl (35.1-43.9); Red Blood Count 4.29 M/mm3 (4.2-5.4); White Blood Count 6.9 K/mm3 (4.4-11.0)
[2023-03-08 16:06] LABS: Erythrocyte Sedimentation Rate 5 mm/hr (0-30)
== END | disposition home or self-care (01) ==
LOC: MTLAB 14:15
PROVIDERS: PCP Family Medicine; Referring Provider Internal Medicine Gastroenterology; Visit Provider Internal Medicine Gastroenterology
DX: K62.5 Hemorrhage of anus and rectum (principal)
CPT/HCPCS: 36415; 85027; 85652

== ENCOUNTER → 2023-07-15 | Outpatient (CLI) | payer MEDICARE, SELFPAY ==
[2023-07-15 13:09] LABS: ALB/GLOB Ratio 1.1 RATIO (0.9-2.4); AST(SGOT) 12 U/L (15-37); Alanine Aminotransfer ALT/SGPT 26 U/L (13-56); Albumin, Serum 3.7 g/dL (3.2-5.0); Alkaline Phosphatase 70 U/L (45-117); Anion Gap 4 (5-15); BUN 15 mg/dL (7-18); BUN/Creat Ratio 20.3 RATIO (10-20); Calcium,Total 8.8 mg/dL (8.5-10.1); Chloride 110 mmol/L (98-107); Cholesterol 191 mg/dL (200); Creatinine, Serum 0.74 mg/dL (0.55-1.02); EST Glomerular Filtration Rate 83 mL/min (>60); Est Glom Filt Rate - Afr Amer 101 mL/min (>60); Free T3 2.3 pg/mL (2.18-3.98); Globulin 3.3 g/dL (2.2-4.2); Glucose 103 mg/dL (74-106); High Density Lipoprotein 57 mg/dL; Potassium 4.3 mmol/L (3.5-5.1); Sodium Level 142 mmol/L (136-145); T4 Free Direct 1.29 ng/dL (0.76-1.46); Thyroid Stim Hormone (TSH) 0.37 uIU/mL (0.358-3.74); Triglycerides 108 mg/dL; Very Low Density Lipoprotein 22 mg/dL (5-40)
== END | disposition home or self-care (01) ==
LOC: MFPLAB 10:33
PROVIDERS: PCP Family Medicine; Visit Provider Family Medicine
DX: E03.9 Hypothyroidism, unspecified (principal); E78.5 Hyperlipidemia, unspecified; R73.01 Impaired fasting glucose
CPT/HCPCS: 36415; 80053; 80061; 84439; 84443; 84481

== ENCOUNTER → 2023-07-19 | Outpatient (CLI) | payer MEDICARE, SELFPAY ==
--- NOTE | 2023-07-19 12:59 | BI_ITS ---
MAMMOGRAPHY - BILATERAL SCREENING REASON FOR EXAM: Female, 68 years old. Routine annual screening examination. PERTINENT HISTORY: Aunt with breast cancer. Chronic inversion of the right nipple. TECHNIQUE: Digital bilateral breast reji (3D mammographic acquisition) in the CC and MLO projections. 2-D mediolateral oblique (MLO) and craniocaudad (CC) views of both breasts were obtained. CAD: Full Field Digital Mammography with Computer Added Detection was performed. COMPARISON: Comparison is made with prior study October 06, 2021 and November 27, 2018. FINDINGS: Breast Composition: The breasts are almost entirely fatty. There are no dominant masses or suspicious calcifications. No other significant abnormalities are identified. There has been no significant change since the prior study. BI/SCRN MAMM (CAD)W/REJI BILAT IMPRESSION: Stable bilateral screening mammogram. Yearly follow-up mammogram recommended. (A) ASSESSMENT CATEGORY: BIRADS Category 1: Negative. A letter regarding these results will be sent to the patient by the facility within 30 days. Approximately 10% of breast cancers are not detected by mammography. A normal mammogram should not delay biopsy of a clinically suspicious abnormality. [id number] Electronically Signed: Ankur Galeano MD at 14:46 EDT ,
== END | disposition home or self-care (01) ==
LOC: OPBI 12:57
PROVIDERS: PCP Family Medicine; Referring Provider Family Medicine; Visit Provider Family Medicine
DX: Z12.31 Encounter for screening mammogram for malignant neoplasm of breast (principal); Z80.3 Family history of malignant neoplasm of breast; N64.59 Other signs and symptoms in breast
CPT/HCPCS: 77063; 77067

== ENCOUNTER → 2023-10-21 | Outpatient (CLI) | payer MEDICARE, SELFPAY ==
[2023-10-21 10:55] LABS: ALB/GLOB Ratio 1.1 RATIO (0.9-2.4); AST(SGOT) 18 U/L (15-37); Alanine Aminotransfer ALT/SGPT 28 U/L (13-56); Albumin, Serum 3.7 g/dL (3.2-5.0); Alkaline Phosphatase 71 U/L (45-117); Anion Gap 3 (5-15); BUN 14 mg/dL (7-18); BUN/Creat Ratio 19.4 RATIO (10-20); Calcium,Total 9.2 mg/dL (8.5-10.1); Chloride 106 mmol/L (98-107); Cholesterol 202 mg/dL (200); Creatinine, Serum 0.72 mg/dL (0.55-1.02); EST Glomerular Filtration Rate 86 mL/min (>60); Est Glom Filt Rate - Afr Amer 104 mL/min (>60); Free T3 2.9 pg/mL (2.18-3.98); Globulin 3.4 g/dL (2.2-4.2); Glucose 108 mg/dL (74-106); High Density Lipoprotein 57 mg/dL; Potassium 3.9 mmol/L (3.5-5.1); Protein, Total 7.1 g/dL (6.4-8.2); Sodium Level 139 mmol/L (136-145); T4 Free Direct 1.21 ng/dL (0.76-1.46); Thyroid Stim Hormone (TSH) 0.24 uIU/mL (0.358-3.74); Triglycerides 163 mg/dL; Very Low Density Lipoprotein 33 mg/dL (5-40)
== END | disposition home or self-care (01) ==
LOC: MFPLAB 08:24
PROVIDERS: PCP Family Medicine; Visit Provider Family Medicine
DX: E03.9 Hypothyroidism, unspecified (principal); E78.5 Hyperlipidemia, unspecified
CPT/HCPCS: 36415; 80053; 80061; 84439; 84443; 84481

== ENCOUNTER → 2023-12-23 | Outpatient (CLI) | payer MEDICARE, SELFPAY ==
--- OUTSIDE RECORDS SUMMARY | 2023-12-23 08:55 | XMS RPT_ITS | CCD ---
Author Name Unknown Address [id number] [place] [address] Organization [facility] Care Team Providers Care Pyrotechnician Name Role Phone Luis Miguelsi Valentina ZELAYA Unavailable Tyrese Quiñonez Unavailable [phone] Yonatan Thompson MD Primary Care Provider Tyrese Quiñonez Unavailable Yonatan Thompson MD Primary Care Provider YONATAN THOMPSON Primary Care Unavailable TYRESE HENSON Referring Unavailable YONATAN THOMPSON Primary Care Unavailable Allergies Allergy Classification Reported Allergen(s) Allergy Type Date of Onset Reaction(s) Facility (4 sources) penicillin v drug allergy 7 [facility] Work Phone: (5 sources) Adhesive agent; Translations: [ADHESIVE] Propensity to adverse reactions 9 [facility] (2 sources) Penicillins; Translations: [PENICILLINS] Propensity to adverse reactions 9 [facility] (5 sources) rivaroxaban; Translations: [RIVAROXABAN] Drug Allergy 1 Unknown [facility] (5 sources) Seasonal allergy; Translations: [SEASONAL ALLERGIES] Allergy to substance 2 Other: See Comments [facility] (3 sources) Penicillins Propensity to adverse reactions 9 [facility] Medications Current Medications Medication Drug Class(es) Dates Sig (Normalized) Sig (Original) benoxinate hydrochloride 4 mg/ml / fluorescein sodium 2.5 mg/ml ophthalmic solution (1 source) Diagnostic Dye Start: 04-09-2022 End: 04-10-2022 fluorescein-benoxi kassandra 0.25-0.4 % 1 Drop (FLURESS) phenylephrine hydrochloride 25 mg/ml ophthalmic solution (1 source) alpha-1 Adrenergic Agonist Start: 04-09-2022 End: 04-10-2022 PHENYLephrine 2.5 % 1 Drop (AK-DILATE, JUSTICE-SYNEPHRINE) proparacaine hydrochloride 5 mg/ml ophthalmic solution (1 source) Local Anesthetic Start: 04-09-2022 End: 04-10-2022 proparacaine 0.5 % 1 Drop (ALCAINE) tropicamide 10 mg/ml ophthalmic solution (1 source) Anticholinergic Start: 04-09-2022 End: 04-10-2022 tropicamide 1 % 1 Drop (MYDRIACYL) Completed/Discontinued Medications Medication Drug Class(es) Dates Sig (Normalized) Sig (Original) COQ10, LIPOSOMAL UBIQUINOL, ORAL (4 sources) COQ10, LIPOSOMAL UBIQUINOL, ORAL Take by mouth once daily. 0 Active Problems Active Problems Problem Classification Problem Date Documented Da te Episodic/Chronic Cataract (1 source) Pseudophakia; Translations: [Presence of intraocular lens] Chronic Complication of device; implant or graft (1 source) Hjbwvcb-tcubohs-lxp ucoma syndrome of right eye; Translations: [Other mechanical complication of other ocular prosthetic devices, implants and grafts, initial encounter] Episodic Nonmalignant breast conditions (4 sources) Fibrocystic disease of breast; Translations: [Diffuse cystic mastopathy of unspecified breast] Onset: 07-16-2010 07-16-2010 Chronic Other connective tissue disease (1 source) Pain in right foot; Translations: [Pain in right foot] Episodic Other connective tissue disease (1 source) Pain in right foot; Translations: [Foot pain, right] Onset: 05-18-2023 Episodic Other non-traumatic joint disorders (2 sources) Acute ankle pain; Translations: [Pain in right ankle and joints of right foot] Episodic Other non-traumatic joint disorders (1 source) Pain in right ankle and joints of right foot; Translations: [Acute right ankle pain] Onset: 05-18-2023 Episodic Retinal detachments; defects; vascular occlusion; and retinopathy (1 source) Cystoid macular edema of right retina; 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, right eye] Chronic Spondylosis; intervertebral disc disorders; other back problems (4 sources) Cervical disc disorder at C5-C6 level with radiculopathy; Translations: [Cervical disc disorder at C5-C6 level with radiculopathy] Onset: 12-13-2016 12-15-2016 Past or Other Problems Problem Classification Problem Date Documented Da te Episodic/Chronic Other bone disease and musculoskeletal deformities (12 sources) Segmental and somatic dysfunction; Translations: [Segmental and somatic dysfunction of lumbar region] Onset: 12-13-2016 12-15-2016 Episodic Results Test Name Value Interpretation Reference Range Facil ity Vital Signs Date Time Vital Sign Value Performing Clinician Facility 05-17-2023 08:22-0400 Body temperature 98.4 [degF] Tyrese Henson BUNDLE CLERK.HELP DESK OPERATOR Work Phone: [facility] 05-17-2023 08:22-0400 Body weight 96.8 kg Tyrese Henson BUNDLE CLERK.HELP DESK OPERATOR Work Phone: [facility] 05-17-2023 08:22-0400 Diastolic blood pressure 62 mm[Hg] Tyrese Henson BUNDLE CLERK.HELP DESK OPERATOR Work Phone: [facility] 05-17-2023 08:22-0400 Heart rate 70 /min Tyrese Henson BUNDLE CLERK.HELP DESK OPERATOR Work Phone: [facility] 05-17-2023 08:22-0400 Respiratory rate 18 /min Tyrese Henson BUNDLE CLERK.HELP DESK OPERATOR Work Phone: [facility] 05-17-2023 08:22-0400 SaO2% (BldA) [Mass fraction] 97 % Tyrese Henson BUNDLE CLERK.HELP DESK OPERATOR Work Phone: [facility] 05-17-2023 08:22-0400 Systolic blood pressure 110 mm[Hg] Tyrese Henson BUNDLE CLERK.HELP DESK OPERATOR Work Phone: [facility] 12-13-2016 09:19-0500 BP Diastolic 78 mm[Hg] Valentina Flores DC [facility] Work Phone: 12-13-2016 09:19-0500 BP Systolic 138 mm[Hg] Valentina Flores DC [facility] Work Phone: 12-13-2016 09:19-0500 Weight 96.03 kg Valentina Dossi DC [facility] Work Phone: Encounters Encounter Date Encounter Type Care Provider Facility Start: 05-19-2023 ambulatory Pcp (Historical) [facility] Start: 05-18-2023 Telephone encounter Elsa Sainz Roberta burkett PA-C Work Phone: [facility] Procedures Date Procedure Procedure Detail Performing Clinician Start: 04-09-2022 Computerized ophthal lucille imaging retina Marium Elam MD Work Phone: Start: 08-01-2017 End: 08-01-2017 Appl modality 1/> areas elec stimj unattended Valentina B Dossi DC Work Phone: Start: 08-01-2017 End: 08-01-2017 Chiropractic manipulative tx spinal 3-4 regions Valentina B Dossi DC Work Phone: Start: 08-01-2017 End: 08-01-2017 Chiropractic manipulation Valentina B Dossi DC Work Phone: Start: 08-01-2017 End: 08-01-2017 Electric stimulation therapy Valentina B Dossi DC Work Phone: Start: 04-28-2017 End: 04-28-2017 Chiropractic manipulative tx spinal 3-4 regions Valentina B Dossi DC Work Phone: Start: 04-28-2017 End: 04-28-2017 Chiropractic manipulation Valentina B Dossi DC Work Phone: Start: 02-09-2017 End: 02-10-2017 Appl modality 1/> areas elec stimj unattended Valentina B Dossi DC Work Phone: Start: 02-09-2017 End: 02-10-2017 Appl modality 1/> areas traction mechanical Valentina B Dossi DC Work Phone: Start: 02-09-2017 End: 02-10-2017 Chiropractic manipulative tx spinal 3-4 regions Valentina B Dossi DC Work Phone: Start: 02-09-2017 End: 02-10-2017 Chiropractic manipulation Valentina B Dossi DC Work Phone: Start: 02-09-2017 End: 02-10-2017 Electric stimulation therapy Valentina B Dossi DC Work Phone: Start: 02-09-2017 End: 02-10-2017 Mechanical traction therapy Valentina B Dossi DC Work Phone: Start: 01-31-2017 End: 01-31-2017 Appl modality 1/> areas elec stimj unattended Valentina B Dossi DC Work Phone: Start: 01-31-2017 End: 01-31-2017 Appl modality 1/> areas traction mechanical Valentina B Dossi DC Work Phone: Start: 01-31-2017 End: 01-31-2017 Chiropractic manipulative tx spinal 3-4 regions Valentina B Dossi DC Work Phone: Start: 01-31-2017 End: 01-31-2017 Chiropractic manipulation Valentina B Dossi DC Work Phone: Start: 01-31-2017 End: 01-31-2017 Electric stimulation therapy Valentina B Dossi DC Work Phone: Start: 01-31-2017 End: 01-31-2017 Mechanical traction therapy Valentina B Dossi DC Work Phone: Start: 01-24-2017 End: 01-24-2017 Appl modality 1/> areas elec stimj unattended Valentina B Dossi DC Work Phone: Start: 01-24-2017 End: 01-24-2017 Appl modality 1/> areas traction mechanical Valentina B Dossi DC Work Phone: Start: 01-24-2017 End: 01-24-2017 Chiropractic manipulative tx spinal 3-4 regions Valentina B Dossi DC Work Phone: Start: 01-24-2017 End: 01-24-2017 Chiropractic manipulation Valentina B Dossi DC Work Phone: Start: 01-24-2017 End: 01-24-2017 Electric stimulation therapy Valentina B Dossi DC Work Phone: Start: 01-24-2017 End: 01-24-2017 Mechanical traction therapy Valentina B Dossi DC Work Phone: Start: 01-17-2017 End: 01-17-2017 Appl modality 1/> areas elec stimj unattended Valentina B Dossi DC Work Phone: Start: 01-17-2017 End: 01-17-2017 Appl modality 1/> areas traction mechanical Valentina B Dossi DC Work Phone: Start: 01-17-2017 End: 01-17-2017 Chiropractic manipulative tx spinal 3-4 regions Valentina B Dossi DC Work Phone: Start: 01-17-2017 End: 01-17-2017 Chiropractic manipulation Valentina B Dossi DC Work Phone: Start: 01-17-2017 End: 01-17-2017 Electric stimulation therapy Valentina B Dossi DC Work Phone: Start: 01-17-2017 End: 01-17-2017 Mechanical traction therapy Valentina B Dossi DC Work Phone: Start: 01-05-2017 End: 01-05-2017 Appl modality 1/> areas elec stimj unattended Valentina B Dossi DC Work Phone: Start: 01-05-2017 End: 01-05-2017 Appl modality 1/> areas traction mechanical Valentina B Dossi DC Work Phone: Start: 01-05-2017 End: 01-05-2017 Chiropractic manipulative tx spinal 3-4 regions Valentina B Dossi DC Work Phone: Start: 01-05-2017 End: 01-05-2017 Chiropractic manipulation Valentina B Dossi DC Work Phone: Start: 01-05-2017 End: 01-05-2017 Electric stimulation therapy Valentina B Dossi DC Work Phone: Start: 01-05-2017 End: 01-05-2017 Mechanical traction therapy Valentina B Dossi DC Work Phone: Start: 12-29-2016 End: 12-29-2016 Appl modality 1/> areas elec stimj unattended Arianna Sainz Tobin Start: 12-29-2016 End: 12-29-2016 Appl modality 1/> areas traction mechanical Arianna Sainz Tobin Start: 12-29-2016 End: 12-29-2016 Chiropractic manipulative tx spinal 3-4 regions Arianna Emeli Tobin Start: 12-29-2016 End: 12-29-2016 Chiropractic manipulation Arianna Sainz Mamadou milian Start: 12-29-2016 End: 12-29-2016 Electric stimulation therapy Arianna Sainz Crista Start: 12-29-2016 End: 12-29-2016 Mechanical traction therapy Arianna Sainz Tobin Start: 12-27-2016 End: 12-27-2016 Appl modality 1/> areas elec stimj unattended Valentina B Dossi DC Work Phone: Start: 12-27-2016 End: 12-27-2016 Appl modality 1/> areas traction mechanical Valentina B Dossi DC Work Phone: Start: 12-27-2016 End: 12-27-2016 Chiropractic manipulative tx spinal 3-4 regions Valentina B Dossi DC Work Phone: Start: 12-27-2016 End: 12-27-2016 Chiropractic manipulation Valentina B Dossi DC Work Phone: Start: 12-27-2016 End: 12-27-2016 Electric stimulation therapy Valentina B Dossi DC Work Phone: Start: 12-27-2016 End: 12-27-2016 Mechanical traction therapy Valentina B Dossi DC Work Phone: Start: 12-22-2016 End: 12-22-2016 Appl modality 1/> areas elec stimj unattended Valentina B Dossi DC Work Phone: Start: 12-22-2016 End: 12-22-2016 Appl modality 1/> areas traction mechanical Valentina B Dossi DC Work Phone: Start: 12-22-2016 End: 12-22-2016 Chiropractic manipulative tx spinal 3-4 regions Valentina B Dossi DC Work Phone: Start: 12-22-2016 End: 12-22-2016 Chiropractic manipulation Valentina B Dossi DC Work Phone: Start: 12-22-2016 End: 12-22-2016 Electric stimulation therapy Valentina B Dossi DC Work Phone: Start: 12-22-2016 End: 12-22-2016 Mechanical traction therapy Valentina B Dossi DC Work Phone: Start: 12-20-2016 End: 12-20-2016 Appl modality 1/> areas elec stimj unattended Valentina B Dossi DC Work Phone: Start: 12-20-2016 End: 12-20-2016 Appl modality 1/> areas traction mechanical Valentina B Dossi DC Work Phone: Start: 12-20-2016 End: 12-20-2016 Chiropractic manipulative tx spinal 3-4 regions Valentina B Dossi DC Work Phone: Start: 12-20-2016 End: 12-20-2016 Chiropractic manipulation Valentina B Dossi DC Work Phone: Start: 12-20-2016 End: 12-20-2016 Electric stimulation therapy Valentina B Dossi DC Work Phone: Start: 12-20-2016 End: 12-20-2016 Mechanical traction therapy Valentina B Dossi DC Work Phone: Start: 12-15-2016 End: 12-16-2016 Chiropractic manipulative tx spinal 3-4 regions Valentina B Dossi DC Work Phone: Start: 12-15-2016 End: 12-16-2016 Chiropractic manipulation Valentina B Dossi DC Work Phone: Plan of Treatment Date Care Activity Detail Author Start: 07-15-2023 Influenza vaccination INFLUENZA (#1) [facility] Start: 04-24-2023 End: 10-01-2023 OCT MACULA CIRRUS OU (BOTH EYES) OCT MACULA CIRRUS OU (BOTH EYES) OPHT Imaging Routine CME (cystoid macular edema), right Sdhcmim-xujyegk-jafznuzf syndrome of right eye Pseudophakia Expected: 04/24/2023, Expires: 10/01/2023 [facility] Work Phone: Immunizations Immunization Date Immunization Notes Care Provider Kennedy montemayor 08-19-2012 influenza virus vaccine, unspecified formulation Marium Fishman MD Work Phone: [facility] 08-16-2009 influenza virus vaccine, unspecified formulation Marium Fishman MD Work Phone: [facility] Work Phone: 09-13-2006 influenza virus vaccine, unspecified formulation Marium Fishman MD Work Phone: [facility] Work Phone: Payers Date Payer Category Payer Medicare MMO MEDICARE MMO MEDADVANTAGE O [id number] 2022-Present [phone] [address] [place] [address] O [id number] 2022 Unknown [id number] 2020 Unknown [employer] [id number] 2020-Present [phone] [address] [place] [address] O [id number] Social History Date Type Detail Facility Start: 05-17-2023 [facility] Work Phone: End: 08-12-1987 History of tobacco use Current smoker [facility] Start: 04-09-2022 End: 05-17-2023 Alcohol intake Current non-drinker of alcohol (finding) [facility] Start: 1955 Sex Assigned At Not on file [facility] Start: 03-30-2022 End: 04-09-2022 Exposure to SARS-CoV-2 (event) Not sure [facility] End: 08-12-1987 History of tobacco use Cigarette Smoker [facility] Start: 05-17-2023 Tobacco use and exposure Smokeless tobacco non-user [facility] Medical Equipment Procedure Code Equipment Code Equipment Origin al Text Equipment Identifier Dates Lens Acrysof 6mm +21.5 Diopter 10 D Biconvex Blue Acrylic 13mm Iol - [id number] Start: 04-27-2021 Clinical Notes 04-09-2022 to 05-19-2023 Cheryl Henley - 05/19/2023 10:00 AM EDTTelephone Encounter - Amanda Richardson - 05/18/2023 2:43 PM EDTTelephone Encounter - Elsa Lezama PA-C - 05/18/2023 9:09 AM EDTPatient Instructions Note Date & Type Note Facility 05-19-2023 Note Patient Outreach ([facility]) RACHELLE CHAMPION ([id number]) 1955 F Date Time Provider Department 05/19/23 PCP (HISTORICAL) [facility] During your visit today, we recorded the following information about you: Cheryl Henley 05/19/2023 10:00 AM Signed POPULATION HEALTH NAVIGATION OUTREACH Action/ 1st call, pt seeing someone outside of [facility] Patient Identified by Name and : YES, via phone Outreach Outcome/Action Spoke to patient / parent / legal guardian: Patient declined Did you use a PCP flex slot to schedule this appointment? No Reason for Outreach Care Gap or Scheduling/Wellness visits Payer: Payor: O MEDICARE / Plan: MMO MEDADVANTAGE HMO / Product Type: HMO / Care Gap Reviewed:: Specialty Scheduling Reminder: Reminder note to check Health Maintenance for items below Health Maintenance items due: HEPATITIS C SCREENING Never done HIV SCREENING Never done DTAP,TDAP,TD(1 - Tdap) Never done MAMMOGRAM Never done LIPID SCREEN Never done DIABETES SCREEN Never done COLORECTAL CANCER SCREENING Never done SHINGRIX VACCINE(1 of 2) Never done BONE DENSITY Never done PNEUMOCOCCAL: 65+(1 - PCV) Never done ADVANCE DIRECTIVE DISCUSSION Never done DEPRESSION ASSESSMENT Never done Navigation Signature: Cheryl Henley May 19, 2023 10:00 AM Allergies As of Date: 05/19/2023 Noted Allergy Reaction ADHESIVE 06/09/2009 PENICILLINS 06/02/2009 SEASONAL ALLERGIES 01/06/2012 14 - Other: See Comments Comments: Sneezing AND congestion XARELTO (RIVAROXABAN) 04/27/2021 16 - Unknown Date Reviewed: 05/17/2023 Reviewed by: Tyrese Henson APRN.HELP DESK OPERATOR - Fully Assessed Prescriptions as of 05/19/2023 - Gayrf-4-UPZ-EPA-Fish Oil 300-1,000 mg cap Take by mouth once daily. - ergocalciferol, vitamin D2, (VITAMIN D2 ORAL) Take by mouth once daily. - COQ10, LIPOSOMAL UBIQUINOL, ORAL Take by mouth once daily. - glucosamine/msm/csa/brittanie/jyn578 (VCRFROWGMY-GMZMJ-WSK-BRITTANIE-115HC ORAL) Take by mouth once daily. - prednisoLONE acetate (PRED FORTE, ECONOPRED PLUS) 1 % ophthalmic suspension INSTILL 1 DROP INTO RIGHT EYE 4 TIMES DAILY - pregabalin (LYRICA) 75 mg capsule Take 75 mg by mouth once daily. - keTORolac (ACULAR) 0.5 % ophthalmic solution Use 1 Drop in the right eye four times daily. - cyclopentolate (CYCLOGYL) 1 % ophthalmic solution Use 1 Drop in the right eye twice daily. - dorzolamide-timolol (COSOPT) 22.3-6.8 mg/mL ophthalmic solution Use 1 Drop in the right eye twice daily. - escitalopram oxalate (LEXAPRO) 10 mg tablet Escitalopram Oxalate Active 10 MG daily December 12, 2017 8:45am - escitalopram oxalate (LEXAPRO) 20 mg tablet - rosuvastatin (CRESTOR) 5 mg tablet Take 5 mg by mouth once daily. - levothyroxine 25 mcg cap levothyroxine 25 mcg capsule Active December 12, 2017 8:45am - loratadine(CLARITIN 10 MG TAB) Take one(1) tablet daily as needed for allergy symptoms. - multivitamins(DAILY VITAMIN TAB) Take by mouth. - SYNTHROID 112 MCG ORAL TAB Take by mouth. Problem List As Of Date 05/19/2023 Noted Resolved Fibrocystic Breast Changes [N60.19] 07/16/2010 Encounter Status:Closed by CHERYL HENLEY on 05/19/23 [facility] 05-19-2023 Note HNO ID: [id number] Author: Cheryl Henley Service: ? Author Type: ? Type: Progress Notes Filed: 05/19/2023 10:00 AM Note Text: POPULATION HEALTH NAVIGATION OUTREACH Action/I 1st call, pt seeing someone outside of [facility] Patient Identified by Name and : YES, via phone Outreach Outcome/Action Spoke to patient / parent / legal guardian: Patient declined Did you use a PCP flex slot to schedule this appointment? No Reason for Outreach Care Gap or Scheduling/Wellness visits Payer: Payor: O MEDICARE / Plan: MMO MEDADVANTAGE HMO / Product Type: HMO / Care Gap Reviewed:: Specialty Scheduling Reminder: Reminder note to check Health Maintenance for items below Health Maintenance items due: HEPATITIS C SCREENING Never done HIV SCREENING Never done DTAP,TDAP,TD(1 - Tdap) Never done MAMMOGRAM Never done LIPID SCREEN Never done DIABETES SCREEN Never done COLORECTAL CANCER SCREENING Never done SHINGRIX VACCINE(1 of 2) Never done BONE DENSITY Never done PNEUMOCOCCAL: 65+(1 - PCV) Never done ADVANCE DIRECTIVE DISCUSSION Never done DEPRESSION ASSESSMENT Never done Navigation Signature: Cheryl Henley May 19, 2023 10:00 AM [facility] 05-19-2023 History of Presen t illness Narrative POPULATION HEALTH NAVIGATION OUTREACH Action/I 1st call, pt seeing someone outside of [facility] Patient Identified by Name and : YES, via phone Outreach Outcome/Action Spoke to patient / parent / legal guardian: Patient declined Did you use a PCP flex slot to schedule this appointment? No Reason for Outreach Care Gap or Scheduling/Wellness visits Payer: Payor: MMO MEDICARE / Plan: MMO MEDADVANTAGE HMO / Product Type: HMO / Care Gap Reviewed:: Specialty Scheduling Reminder: Reminder note to check Health Maintenance for items below Health Maintenance items due: HEPATITIS C SCREENING Never done HIV SCREENING Never done DTAP,TDAP,TD(1 - Tdap) Never done MAMMOGRAM Never done LIPID SCREEN Never done DIABETES SCREEN Never done COLORECTAL CANCER SCREENING Never done SHINGRIX VACCINE(1 of 2) Never done BONE DENSITY Never done PNEUMOCOCCAL: 65+(1 - PCV) Never done ADVANCE DIRECTIVE DISCUSSION Never done DEPRESSION ASSESSMENT Never done Navigation Signature: Cheryl Henley May 19, 2023 10:00 AM documented in this encounter [facility] 05-18-2023 Miscellaneous Notes Patient given results and verbalized understanding of instructions given. Amanda Richardson Please call patient and let her know her x-ray showed no fractures. She does have an incidental heel spur as well as a mild bunion on her x-rays these are not likely causing her symptoms. Follow-up with podiatry if not improving. documented in this encounter [facility] 05-18-2023 Note HNO ID: [id number] Author: RT Aureliano(R) Service: Nuclear Medicine Author Type: Technologist Type: Progress Notes Filed: 05/18/2023 8:57 AM Note Text: Radiology Service Progress Note PATIENT NAME: Rachelle Champion DATE OF SERVICE: May 18, 2023 TIME: 8:47 AM PATIENT IDENTITY VERIFICATION COMPLETED USING TWO (2) IDENTIFIERS: Name and Date of confirmed by patient verbally. FALL SCREENING: Has the patient had 2 falls in the last year or 1 fall with injury or currently using an Ambulatory Assistive Device (Walker, Cane, Wheelchair, Crutches, etc.)? No PATIENT GENDER DATA: Female. status: : No status: NO. PATIENT RELEVANT IMPLANT DATA REVIEWED: Not Applicable RADIOLOGY DEPARTMENT: General X-ray: Exam(s) Completed: Lower Extremity X-Ray(s): Ankle, Right and Wt. Bearing and Foot, Right and Wt. Bearing PERIPHERAL IV DATA: Not applicable SIGNED BY: Sushma Del Cid, RT(R) May 18, 2023 8:47 AM [facility] 05-17-2023 Note HNO ID: [id number] Author: Tyrese Henson APRN.HELP DESK OPERATOR Service: ? Author Type: Nurse Practitioner Type: Progress Notes Filed: 05/17/2023 8:51 AM Note Text: Subjective HPI Nontoxic-appearing female presents urgent care chief complaint right foot and ankle pain. Duration of symptoms 1 week. Associated symptoms listed above. Patient states noticed swelling right ankle/foot area. Swelling has worsened and pain has worsened over the last few days. Does not recall any specific injuries. States she has been walking on concrete a lot getting ready to set up for a garage sale. Rates pain 4 out of 10. States pain is worse at night. Does have neuropathy. Does have planter fasciitis of this foot. Has used Motrin. This is helped with pain management. Presents today for reevaluation. Denies any fever body aches chills productive cough chest pain shortness of breath pleuritic pain hemoptysis nausea vomiting abdominal pain change in bowel or bladder habits. Past medical history prescription medication use and allergies reviewed. .Patient presents with: right foot pain: Right foot pain x 1 week-cannot recall an injury PAST MEDICAL HISTORY Diagnosis Date Allergic rhinitis Detached retina, right Glaucoma Vhwfvcq-lmqaqjs-pirarfba syndrome of right eye PAST SURGICAL HISTORY Procedure Laterality Date ARTHROSCOPY KNEE; W/ FIXATION bone spur left, torn meniscus on right EXCHANGE OF INTRAOCULAR LENS S/p IOL Exchange/PPV OD:04/27/2021 PAST SURGICAL HISTORY OF LASIK both eyes. VAGINAL HYSTERECTOMY UTERUS 250 GM/< Hysterectomy, vaginal VITRECTOMY,MECHANICAL S/p IOL Exchange/PPV OD:04/27/2021 ALLERGIES Adhesive, Penicillins, Seasonal Allergies, and Xarelto [Rivaroxaban] MEDICATIONS Syvoz-0-DLG-EPA-Fish Oil 300-1,000 mg cap Take by mouth once daily. ergocalciferol, vitamin D2, (VITAMIN D2 ORAL) Take by mouth once daily. COQ10, LIPOSOMAL UBIQUINOL, ORAL Take by mouth once daily. glucosamine/msm/csa/brittanie/ksq628 (SOXNQIWNPE-SAPHV-BRK-BRITTANIE-115HC ORAL) Take by mouth once daily. prednisoLONE acetate (PRED FORTE, ECONOPRED PLUS) 1 % ophthalmic suspension INSTILL 1 DROP INTO RIGHT EYE 4 TIMES DAILY (Patient taking differently: Use 1 Drop in the right eye twice daily.) keTORolac (ACULAR) 0.5 % ophthalmic solution Use 1 Drop in the right eye four times daily. escitalopram oxalate (LEXAPRO) 10 mg tablet Escitalopram Oxalate Active 10 MG daily December 12, 2017 8:45am escitalopram oxalate (LEXAPRO) 20 mg tablet rosuvastatin (CRESTOR) 5 mg tablet Take 5 mg by mouth once daily. levothyroxine 25 mcg cap levothyroxine 25 mcg capsule Active December 12, 2017 8:45am loratadine(CLARITIN 10 MG TAB) Take one(1) tablet daily as needed for allergy symptoms. multivitamins(DAILY VITAMIN TAB) Take by mouth. SYNTHROID 112 MCG ORAL TAB Take by mouth. pregabalin (LYRICA) 75 mg capsule Take 75 mg by mouth once daily. (Patient not taking: Reported on 01/08/2022) cyclopentolate (CYCLOGYL) 1 % ophthalmic solution Use 1 Drop in the right eye twice daily. (Patient not taking: Reported on 05/22/2021 ) dorzolamide-timolol (COSOPT) 22.3-6.8 mg/mL ophthalmic solution Use 1 Drop in the right eye twice daily. (Patient not taking: Reported on 05/22/2021 ) FAMILY HISTORY Problem Relation Age of Onset Cancer Mother thyroid Cancer Father non Hodgkin's lymphoma Social History Tobacco Use Smoking status: Former Types: Cigarettes Quit date: 08/12/1987 Years since quittin.7 Smokeless tobacco: Never Vaping Use Vaping Use: Never used Substance Use Topics Alcohol use: No Drug use: No BP 110/62 Pulse 70 Temp 36.9 ?C (98.4 ?F) (Tympanic) Resp 18 Wt 96.8 kg (213 lb 6.4 oz) SpO2 97% Review of Systems Constitutional: Negative for chills, fever and malaise/fatigue. HENT: Negative for congestion, ear discharge, ear pain, sinus pain and sore throat. Eyes: Negative for blurred vision, pain, discharge and redness. Respiratory: Negative for cough, hemoptysis, sputum production, shortness of breath, wheezing and stridor. Cardiovascular: Negative for chest pain. Gastrointestinal: Negative for abdominal pain, diarrhea, nausea and vomiting. Musculoskeletal: Positive for joint pain. Negative for myalgias. Skin: Negative for itching and rash. Neurological: Negative for dizziness and headaches. Objective Physical Exam Constitutional: General: She is not in acute distress. Appearance: She is not toxic-appearing. HENT: Head: Normocephalic. Nose: Nose normal. Eyes: Pupils: Pupils are equal, round, and reactive to light. Cardiovascular: Rate and Rhythm: Normal rate. Pulmonary: Effort: Pulmonary effort is normal. No respiratory distress. Breath sounds: No wheezing, rhonchi or rales. Musculoskeletal: Cervical back: Normal range of motion. Right knee: No swelling or bony tenderness. Normal range of motion. Right lower leg: No swelling, tenderness or bony tende (more content not included)... [facility] 05-17-2023 History of Presen t illness Narrative Subjective HPI Nontoxic-appearing female presents urgent care chief complaint right foot and ankle pain. Duration of symptoms 1 week. Associated symptoms listed above. Patient states noticed swelling right ankle/foot area. Swelling has worsened and pain has worsened over the last few days. Does not recall any specific injuries. States she has been walking on concrete a lot getting ready to set up for a garage sale. Rates pain 4 out of 10. States pain is worse at night. Does have neuropathy. Does have planter fasciitis of this foot. Has used Motrin. This is helped with pain management. Presents today for reevaluation. Denies any fever body aches chills productive cough chest pain shortness of breath pleuritic pain hemoptysis nausea vomiting abdominal pain change in bowel or bladder habits. Past medical history prescription medication use and allergies reviewed. .Patient presents with: right foot pain: Right foot pain x 1 week-cannot recall an injury PAST MEDICAL HISTORY Diagnosis Date Allergic rhinitis Detached retina, right Glaucoma Egotokq-opkexbb-klehvfww syndrome of right eye PAST SURGICAL HISTORY Procedure Laterality Date ARTHROSCOPY KNEE; W/ FIXATION bone spur left, torn meniscus on right EXCHANGE OF INTRAOCULAR LENS S/p IOL Exchange/PPV OD:04/27/2021 PAST SURGICAL HISTORY OF LASIK both eyes. VAGINAL HYSTERECTOMY UTERUS 250 GM/< Hysterectomy, vaginal VITRECTOMY,MECHANICAL S/p IOL Exchange/PPV OD:04/27/2021 ALLERGIES Adhesive, Penicillins, Seasonal Allergies, and Xarelto [Rivaroxaban] MEDICATIONS Kjana-2-CMI-EPA-Fish Oil 300-1,000 mg cap Take by mouth once daily. ergocalciferol, vitamin D2, (VITAMIN D2 ORAL) Take by mouth once daily. COQ10, LIPOSOMAL UBIQUINOL, ORAL Take by mouth once daily. glucosamine/msm/csa/brittanie/zxo370 (AKASWMTNVS-ZSQVC-QPC-BRITTANIE-115HC ORAL) Take by mouth once daily. prednisoLONE acetate (PRED FORTE, ECONOPRED PLUS) 1 % ophthalmic suspension INSTILL 1 DROP INTO RIGHT EYE 4 TIMES DAILY (Patient taking differently: Use 1 Drop in the right eye twice daily.) keTORolac (ACULAR) 0.5 % ophthalmic solution Use 1 Drop in the right eye four times daily. escitalopram oxalate (LEXAPRO) 10 mg tablet Escitalopram Oxalate Active 10 MG daily December 12, 2017 8:45am escitalopram oxalate (LEXAPRO) 20 mg tablet rosuvastatin (CRESTOR) 5 mg tablet Take 5 mg by mouth once daily. levothyroxine 25 mcg cap levothyroxine 25 mcg capsule Active December 12, 2017 8:45am loratadine(CLARITIN 10 MG TAB) Take one(1) tablet daily as needed for allergy symptoms. multivitamins(DAILY VITAMIN TAB) Take by mouth. SYNTHROID 112 MCG ORAL TAB Take by mouth. pregabalin (LYRICA) 75 mg capsule Take 75 mg by mouth once daily. (Patient not taking: Reported on 01/08/2022) cyclopentolate (CYCLOGYL) 1 % ophthalmic solution Use 1 Drop in the right eye twice daily. (Patient not taking: Reported on 05/22/2021 ) dorzolamide-timolol (COSOPT) 22.3-6.8 mg/mL ophthalmic solution Use 1 Drop in the right eye twice daily. (Patient not taking: Reported on 05/22/2021 ) FAMILY HISTORY Problem Relation Age of Onset Cancer Mother thyroid Cancer Father non Hodgkin's lymphoma Social History Tobacco Use Smoking status: Former Types: Cigarettes Quit date: 08/12/1987 Years since quittin.7 Smokeless tobacco: Never Vaping Use Vaping Use: Never used Substance Use Topics Alcohol use: No Drug use: No BP 110/62 Pulse 70 Temp 36.9 C (98.4 F) (Tympanic) Resp 18 Wt 96.8 kg (213 lb 6.4 oz) SpO2 97% Review of Systems Constitutional: Negative for chills, fever and malaise/fatigue. HENT: Negative for congestion, ear discharge, ear pain, sinus pain and sore throat. Eyes: Negative for blurred vision, pain, discharge and redness. Respiratory: Negative for cough, hemoptysis, sputum production, shortness of breath, wheezing and stridor. Cardiovascular: Negative for chest pain. Gastrointestinal: Negative for abdominal pain, diarrhea, nausea and vomiting. Musculoskeletal: Positive for joint pain. Negative for myalgias. Skin: Negative for itching and rash. Neurological: Negative for dizziness and headaches. Objective Physical Exam Constitutional: General: She is not in acute distress. Appearance: She is not toxic-appearing. HENT: Head: Normocephalic. Nose: Nose normal. Eyes: Pupils: Pupils are equal, round, and reactive to light. Cardiovascular: Rate and Rhythm: Normal rate. Pulmonary: Effort: Pulmonary effort is normal. No respiratory distress. Breath sounds: No wheezing, rhonchi or rales. Musculoskeletal: Cervical back: Normal range of motion. Right knee: No swelling or bony tenderness. Normal range of motion. Right lower leg: No swelling, tenderness or bony tenderness. No edema. Right ankle: Swelling present. No ecchymosis. Tenderness present over the lateral malleolus. Normal range of motion. Right Achilles Tendon: No tenderness. Right foot: Normal range of motion and normal capillary refill. Swelling present. No deformity, tenderness or bony tenderness. Comments: Edema noted over lateral malleolus. Neurovascular intact. No erythema. No breaks in skin. No evidence of infection. No joint laxity noted Skin: General: Skin is warm and dry. Neurological: General: No focal deficit present. Mental Status: She is alert. ASSESSMENT/PLAN: 1. Foot pain, right - ICD9: 729.5, ICD10: M79.671 (primary diagnosis) - XR FOOT GENERAL 3V AP/LAT/OBL RIGHT - XR ANKLE GENERAL 3V AP/LAT/OBL RIGHT 2. Acute right ankle pain - ICD9: 719.47, 338.19, ICD10: M25.571 - XR FOOT GENERAL 3V AP/LAT/OBL RIGHT - XR ANKLE GENERAL 3V AP/LAT/OBL RIGHT Tendinitis versus stress fracture versus diabetic neuropathy. Treat as fractured due to inability to obtain x-rays today. Patient states she does have a walking boot and crutches. Treat this as nonweightbearing injury until x-ray results are reviewed tomorrow. Patient does have a follow-up with podiatry this week. Keep follow-up as scheduled. Patient was educated on supportive therapies. Patient will follow up with primary care provider as needed. Patient was instructed to immediately proceed to emergency room for any new, worsening, or symptoms lasting longer than anticipated. The patient's clinical presentation is otherwise unremarkable at this time. Based on exam and clinical finding, the patient is stable for discharge. Plan of care was discussed with patient. Patient verbalizes understanding and agrees to plan of care. This note was generated using [employer] software. It may contain errors in wording, punctuation, or spelling. Tyrese Henson APRN.HELP DESK OPERATOR documented in this encounter [facility] 04-09-2022 Instructions Marium Elam V, MD - 04/09/2022 4:14 PM EDT Please follow-up with Dr. Elam for your next eye exam if you have been advised to do so. If you notice any sudden changes to your vision, eye pain, eye redness or irritation, please do not hesitate to call our office to schedule an earlier appointment. 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 documented in this encounter [facility] 04-09-2022 History of Presen t illness Narrative No changes to health or vision since last examination. POHx: s/p LASIK Both Eyes 2006, RRD OD 2007 s/p PPV (Dr. Wayne) with subsequent CEIOL (Dr. Askew) and followed by repeat PPV (unclear if re-detached), also s/p ?Trab 2007 (Dr. Askew). Hx floaters Left Eye Has had several episodes Right Eye since surgery in 2007 in which her vision becomes acutely blurred and then slowly improves to baseline. Each episode has been progressively worse with a longer period of recovery. Most recent episode was February 10 and she could only see light (not even movement). 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 - (+) Hx of LASIK - BScan 04/2021: No RD, flat macula, +VH - 04/27/21 IOL exchange with sulcus lens (Dr. 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 Clarence Wayne (retina specialist in [place]) - unclear what indication was for second PPV, the records indicate possible ERM. 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 I have seen and examined Rachelle Champion. I have discussed the case and the management of this patient's care with the Resident/Fellow, if applicable. I also have reviewed and agree with the assessment and plan as stated above and agree with all of its relevant components. Marium Elam MD documented in this encounter [facility] Diagnosis Foot pain, right- Primary Pain in limb Acute right ankle pain [facility] Diagnosis Acute right ankle pain- Primary [facility])* Diagnostic Procedure Only (Urgent) - Pending Review Specialty Diagnoses / Procedures Referred By Lukasz croft Referred To Contact XR IMAGING Diagnoses Foot pain, right Acute right ankle pain Procedures XR ANKLE GENERAL 3V AP/LAT/OBL RIGHT RADEX ANKLE COMPLETE MINIMUM 3 VIEWS Tyrese Henson APRN.RAIN [address] [place] [address] Xr Imaging Referral ID Status Reason Start Date Expiration Date Visits Requested Visits Authorized [id number] Pending Review Auto-Generat ed Referral 05/17/2023 2024 1 1 * Diagnostic Procedure Only (Urgent) - Pending Review Specialty Diagnoses / Procedures Referred By Lukasz croft Referred To Contact XR IMAGING Diagnoses Foot pain, right Acute right ankle pain Procedures XR FOOT GENERAL 3V AP/LAT/OBL RIGHT RADEX FOOT COMPLETE MINIMUM 3 VIEWS Tyrese Henson APRN.CNP [address] [place] [address] Xr Imaging Referral ID Status Reason Start Date Expiration Date Visits Requested Visits Authorized [id number] Pending Review Auto-Generat ed Referral 05/17/2023 2024 1 1 [facility] Medications Administered Section Active Administered Medications - up to 3 most recent administrations Medication Order MAR Action Action Date Dose Rate Site fluorescein-benoxinate 0.25-0.4 % 1 Drop (FLURESS) 1 Drop, BOTH EYES, DIRECTED, Starting on Tue04/09/22 at 1530, Until 04/10/22 at 0329, Administer for applanation tonometry. In the event of a Fluress shortage, administer 1 drop of Belkis-Fluor into both eyes as directed for applanation tonometry., OP[facility] CLINIC MED ORDERS Given 04/09/2022 3:30 PM EDT 1 Drop PHENYLephrine 2.5 % 1 Drop (AK-DILATE, JUSTICE-SYNEPHRINE) 1 Drop, BOTH EYES, DIRECTED, Starting on Tue04/09/22 at 1530, Until 04/10/22 at 0329, Administer for dilation PROTECT FROM LIGHT, OPHT CLINIC MED ORDERS Given 04/09/2022 3:30 PM EDT 1 Drop tropicamide 1 % 1 Drop (MYDRIACYL) 1 Drop, BOTH EYES, DIRECTED, Starting on Tue04/09/22 at 1530, Until 04/10/22 at 0329, Administer for dilation, OPHT CLINIC MED ORDERS Given 04/09/2022 3:30 PM EDT 1 Drop Advance Directives No Advanced Directives Records FoundDocuments on File Type Date Recorded Patient Mainframe Analyst Expl anation Advance Directive(s) 04/20/2021 12:16 PM co le eye Reason for Referral Specialty Diagnoses / Procedures Referred By Lukasz croft Referred To Contact Podiatry Diagnoses Acute right ankle pain Procedures CONSULT TO PODIATRY OFFICE/OUTPATIENT [facility] 60-74 MINUTES Elsa Lezama PA-C [address] [place] [address] Referral ID Status Reason Start Date Expiration Date Visits Requested Visits Authorized [id number] Authorized PCP Requested Referral 05/18/2023 05/17/2024 1 1 Summary Purpose Family History No Family History Records Found Additional Source Comments Source Comments (unrecognize d section and content) In the event this informatio n is protected by the Federal Confidentiality of Alcohol and Drug Abuse Patient Records regulations: The Federal rules restrict any use of the information to criminally investigate or prosecute any alcohol or drug abuse patient.[facility] the event this information is protected by the Federal Confidentiality of Alcohol and Drug Abuse Patient Records regulations: The Federal rules restrict any use of the information to criminally investigate or prosecute any alcohol or drug abuse patient.[facility] the event this information is protected by the Federal Confidentiality of Alcohol and Drug Abuse Patient Records regulations: The Federal rules restrict any use of the information to criminally investigate or prosecute any alcohol or drug abuse patient.[facility] the event this information is protected by the Federal Confidentiality of Alcohol and Drug Abuse Patient Records regulations: The Federal rules restrict any use of the information to criminally investigate or prosecute any alcohol or drug abuse patient.[facility] Reason for Visit (unrecogniz ed section and content) Specialty Diagnoses / Procedures Referred By Lukasz croft Referred To Contact OPHTHALMOLOGY Diagnoses Return in 2-3 months Procedures Est adult Marium Elam V, MD [address] [place] [address] [address] [address] Referral ID Status Reason Start Date Expiration Date Visits Requested Visits Authorized [id number] Authorized Financial Clearance Required - OON Payor Patient Cleared INN/SMCP Payor Auth Obtained 1 09/23/2022 4 4 Reason Comments right foot pain Right foot pain x 1 week-cannot recall an injury Reason Comments Results Care Teams (unrecognized sec tion and content) Pyrotechnician Relationship Specialty Start Date End Date Yonatan Thompson MD [address] [address] PCP - General Family Medicine 04/15/21 Tyrese Quiñonez [address] [place] [address] Physician Ophthalmology 02/24/21 Pyrotechnician Relationship Specialty Start Date End Date Yonatan Thompson MD [address] [address] PCP - General Family Medicine 04/15/21 Tyrese Quiñonez [address] [place] [address] Physician Ophthalmology 02/24/21 Pyrotechnician Relationship Specialty Start Date End Date Yonatan Thompson MD [address] [address] PCP - General Family Medicine 04/15/21 Tyrese Quiñonez [address] [place] [address] Physician Ophthalmology 02/24/21 INFORMATION SOURCE (unrecogn ized section and content) FOR RECORDS PERTAINING TO PATIENTS WHO ARE OR HAVE BEEN ENROLLED IN A CHEMICAL DEPENDENCY/SUBSTANCEABUSE PROGRAM, SOME INFORMATION MAY BE OMITTED. This clinical summary was aggregated from multiple sources. Caution should be exercised in using it in the provision of clinical care. This summary normalizes information from multiple sources, and as a consequence, information in this document may materially change the coding, format and clinical context of patient data. In addition, data may be omitted in some cases. CLINICAL DECISIONS SHOULD BE BASED ON THE PRIMARY CLINICAL RECORDS. [facility]. provides no warranty or guarantee of the accuracy or completeness of information in this document.
[2023-12-23 11:00] LABS: Free T3 2.1 pg/mL (2.18-3.98); T4 Free Direct 0.92 ng/dL (0.76-1.46); Thyroid Stim Hormone (TSH) 2.76 uIU/mL (0.358-3.74)
== END | disposition home or self-care (01) ==
LOC: MFPLAB 08:40
PROVIDERS: PCP Family Medicine; Visit Provider Family Medicine
DX: E03.9 Hypothyroidism, unspecified (principal)
CPT/HCPCS: 36415; 84439; 84443; 84481

== ENCOUNTER → 2024-06-18 | Outpatient (CLI) | payer MEDICARE, SELFPAY ==
--- NOTE | 2024-06-18 10:13 | RAD_ITS ---
INDICATION: PAIN EXAMINATION/TECHNIQUE: X-RAY - LEFT XR Shoulder Min 2 Views 4 VIEWS COMPARISON: No relevant prior comparison study available FINDINGS: SOFT TISSUES: No soft tissue swelling or gas. No radiopaque foreign body. BONES/JOINTS: No acute fracture or subluxation.. The glenohumeral joint is well aligned. Small osteophytes present . Mild hypertrophic degenerative change of the acromioclavicular joint. No sclerotic or destructive changes observed. RAD/Shoulder min 2 Views IMPRESSION: No fracture or malalignment. Mild degenerative changes. Electronically Signed: Rex Patterson MD at 8:15 EDT ,
[2024-06-18 12:28] LABS: ALB/GLOB Ratio 1.1 RATIO (0.9-2.4); AST(SGOT) 16 U/L (15-37); Alanine Aminotransfer ALT/SGPT 26 U/L (13-56); Albumin, Serum 3.6 g/dL (3.2-5.0); Alkaline Phosphatase 75 U/L (45-117); Anion Gap 7 (5-15); BUN 14 mg/dL (7-18); BUN/Creat Ratio 16.7 RATIO (10-20); Calcium,Total 8.8 mg/dL (8.5-10.1); Chloride 109 mmol/L (98-107); Cholesterol 231 mg/dL (200); Creatinine, Serum 0.84 mg/dL (0.55-1.02); EST Glomerular Filtration Rate 72 mL/min (>60); Est Glom Filt Rate - Afr Amer 87 mL/min (>60); Free T3 2.2 pg/mL (2.18-3.98); Globulin 3.3 g/dL (2.2-4.2); Glucose 114 mg/dL (74-106); High Density Lipoprotein 51 mg/dL; Potassium 3.9 mmol/L (3.5-5.1); Protein, Total 6.9 g/dL (6.4-8.2); Sodium Level 143 mmol/L (136-145); T4 Free Direct 0.92 ng/dL (0.76-1.46); Thyroid Stim Hormone (TSH) 4.47 uIU/mL (0.358-3.74); Triglycerides 142 mg/dL; Very Low Density Lipoprotein 28 mg/dL (5-40)
== END | disposition home or self-care (01) ==
PROVIDERS: PCP Family Medicine; Referring Provider Family Medicine; Visit Provider Family Medicine
DX: M25.512 Pain in left shoulder (principal); E78.5 Hyperlipidemia, unspecified; E03.9 Hypothyroidism, unspecified
CPT/HCPCS: 36415; 73030; 80053; 80061; 84439; 84443; 84481

== ENCOUNTER 2024-09-03 18:51 | Emergency (ER) | payer MEDICARE, SELFPAY ==
[2024-09-03] VITALS (8 sets, daily range): BP systolic 138–146; BP diastolic 73–88; PULSE 78–104; RESP 12–18; TEMP 36.8; O2SAT 94–100; BMI 30.9
--- NOTE | 2024-09-03 19:12 | EDS_ITS ---
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 Home Medications ?Medication ?Instructions ?Recorded ?Last Taken ?Type antiarthritic combination no.2 900 900 mg PO DAILY arthritis 06/17/22 09/02/24 History mg tablet (glucosamine-chondroitin) cinnamon bark 500 mg capsule 500 mg PO DAILY 06/17/22 Unknown History (Cinnamon) coenzyme Q10 100 mg capsule 100 mg PO DAILY 06/17/22 Unknown History (CoQ-10) magnesium 30 mg tablet 30 mg PO DAILY 06/17/22 Unknown History multivitamin 1 tab PO DAILY 06/17/22 09/02/24 History omega 3-dxg-gpk-fish oil 300 1 cap PO DAILY 06/17/22 09/02/24 History mg-1,000 mg capsule (Fish Oil) Hydrocortisone 2.5%/lidocaine 5% #30 ea 07/11/23 Unknown Rx suppository (cmpd) atorvastatin 10 mg tablet 10 mg PO DAILY 07/11/23 09/03/24 History cholecalciferol (vitamin D3) 75 50 mcg PO DAILY 07/11/23 09/02/24 History mcg (3,000 unit) tablet levothyroxine 25 mcg capsule 137 mcg PO DAILY 07/11/23 Unknown History loratadine 10 mg tablet (Claritin) 10 mg PO DAILY 07/11/23 09/03/24 History trazodone 50 mg tablet 50 mg PO QHS PRN insomnia 07/11/23 09/02/24 History escitalopram oxalate 20 mg tablet 20 mg PO DAILY 08/30/23 09/02/24 History Allergy/AdvReac Type Severity Reaction Status Date / Time Penicillins Allergy Mild itching Verified 09/03/24 18:53 Seasonal Allergies: Uncoded Allergy Other Verified 09/03/24 18:53 Family History Grandfather Arthritis Grandmother Arthritis Aunt Breast cancer Diabetes Father Cancer Rectal Mother Cancer Thyroid Uncle Diabetes Brother Heart disease Surgical History History of breast surgery History of hysterectomy History of bunionectomy of left great toe History of total right knee replacement (TKR) Hx of arthroscopy of right knee Hx of eye surgery Hx of adenoidectomy Hx of tonsillectomy Social History Smoking Status: Former smoker pack-years: 3 Tobacco: How many years used: 15 alcohol intake: current alcohol intake frequency: holidays/special occasions only substance use type: does not use what type of physical activity do you participate in: walking and yoga frequency: 1-2 times per week seatbelt use: always EXAM Physical Exam Const Vital Signs: 09/03/24 18:51 09/03/24 18:51 09/03/24 19:13 Temperature 98.2 F Temperature Source Oral Pulse Rate 104 H Respiratory Rate 18 Respiratory Effort Normal Blood Pressure 143/81 H Blood Pressure Mean 101 Pulse Ox 100 96 Oxygen Delivery Method Room Air Room Air 09/03/24 19:51 09/03/24 20:00 09/03/24 20:57 Temperature Temperature Source Pulse Rate 94 89 85 Respiratory Rate 15 17 16 Respiratory Effort Blood Pressure 146/81 H 139/87 H 140/88 H Blood Pressure Mean 102 104 105 Pulse Ox 96 94 96 Oxygen Delivery Method Room Air Room Air Room Air 09/03/24 21:12 Temperature Temperature Source Pulse Rate 81 Respiratory Rate Respiratory Effort Blood Pressure 138/79 H Blood Pressure Mean 98 Pulse Ox Oxygen Delivery Method Room Air MDM MDM MDM Narrative Medical decision making narrative: HISTORY OF PRESENT ILLNESS: 69-year-old female presents with sudden onset of chest pain that radiates to her back. She notes this occurred during exertion when moving boxes proximate hours ago. She notes associated dizziness and diaphoresis. Notes she did not drink or eat enough today. No she is moving her mother the whole weekend. No she felt better after drinking p.o. fluids. The patient denies recent surgery in the last 4 weeks or immobilization in the last 3 days, denies previous diagnosis of DVT or PE, hemoptysis, unilateral leg swelling or malignancy with treatment the last 6 months or palliative. No estrogen use noted. Patient denies sudden onset of pain, no tearing sensation, no migratory symptoms, no new numbness, weakness or loss of sensation. Patient denies family history or personal history of Connective tissue disorders (Marfan's Syndrome, Rey Danlos etc) REVIEW OF SYSTEMS: Pertinent positives: Chest pain, dizziness, diaphoresis Pertinent negatives: Syncope, leg swelling, hemoptysis PHYSICAL EXAM: Nursing triage notes reviewed, Vital signs reviewed Constitutional: please see mdm HENT: MMM Eyes: Pupils equal round and reactive to light, Extraocular muscles intact Neck: No stridor, no JVD, full neck ROM Lungs: Clear to auscultation, No wheezing or rales. No increased work of breathing, no conversational dyspnea, no accessory muscle use, no nasal flaring. No respiratory distress noted Heart: Regular rate and rhythm, No murmurs, No rubs and No gallops, 2+ distal pulses (radial, femoral, posterior tibial) in all extremities Abdomen: Soft, there is no tenderness, rigidity, rebound or guarding, no obvious peritoneal signs, no palpable pulsatile abdominal masses, no auscultated abdominal bruit : No CVAT Extremities: No edema Neuro: Alert and oriented x3, neuro exam at baseline, cranial nerves II through XII are intact. No pain with extraocular muscle movement. There is negative test of skew. 5 of 5 strength in upper and lower extremities in flexion extension. Intact sensation to light touch in upper and lower extremity dermatomes. No truncal or extremity ataxia. No dysdiadochokinesia. Normal gait. 2+ reflexes in upper and lower extremities. No meningeal signs. Negative Babinski. NIH of 0. Skin: No rash or lesions noted MEDICAL DECISION MAKING: Chief Complaint: Chest pain External records reviewed: Reviewed vital signs, problem list, allergies, current medications, prior cardiovascular testing Factors affecting care: Obesity, hyperlipidemia, hypothyroidism Social determinants of health: none History obtained from others: none Consults: none [facility] Narrative: The patient was initially hemodynamically stable, afebrile, nontoxic-appearing. Exam I considered the following differential diagnosis: ACS, rhythm, anemia, electro disturbance, PE, aortic dissection ALL IMAGES (IF OBTAINED) HAVE BEEN PERSONALLY REVIEWED AND INTERPRETED BY MYSELF. EKG with normal sinus rhythm, left axis deviation, normal intervals, no STEMI CBC without leukocytosis, severe anemia, no thrombocytopenia. D-dimer negative making VTE and dissection less likely BMP without evidence of significant electrolyte abnormalities, no anion gap, no acute kidney injury. High-sensitivity troponin is negative, no evidence of myocardial ischemiax2 I have personally reviewed the patient's chest x-ray. Chest x-ray is unremarkable for pulmonary edema, pneumothorax, pneumonia or focal cardiopulmonary abnormality. BNP within normal limits suggestive of no CHF the synthesis of the patient history, physical exam, labs images suggest no acute life-limiting etiology. Specifically no sign of PE, or dissection, ACS, heart failure, significant anemia or electrolyte disturbance the patient is appropriate discharge home with close PCP follow-up for outpatient confirmatory testing performed a stress test or echocardiogram The patient and/or family, caregivers express understanding. The patient and/or family, caregivers agrees with the plan. Shared decision making: I will have a discussion with the patient and or visitors regarding risk/benefits of further testing or admission. They will be made aware of of the risk/benefits inherent in this decision they will be given the opportunity to voice understanding. Total critical care time today provided was at least 0 minutes. This excludes separately billable procedures. Critical care time (if documented) is secondary to the patient having high probability of clinically significant/life threatening deterioration in the patient's condition which required my urgent intervention. Impression: 1. Chest pain 2. Dehydration Dispo: Discharge home This note was generated with Torrential dictation software. It may contain incorrect words, spelling, and punctuation that were not noted in review of the chart prior to signing. Lab Data Labs: Laboratory Results - last 24 hr 09/03/24 09/03/24 19:04 21:09 WBC 7.9 RBC 4.22 Hgb 12.9 Hct 40.1 MCV 95.0 MCH 30.6 MCHC 32.2 RDW Std Deviation 47.8 H RDW Coeff of Manas 13.8 Plt Count 275 MPV 9.6 Immature Gran % (Auto) 0.400 Neut % (Auto) 60.0 Lymph % (Auto) 27.7 [place] % (Auto) 7.8 Eos % (Auto) 3.2 Baso % (Auto) 0.9 Absolute Neuts (auto) 4.8 Absolute Lymphs (auto) 2.20 Nucleated RBC % 0 D-Dimer Quant (PE/DVT) 0.48 Sodium 138 Potassium 3.9 Chloride 103 Carbon Dioxide 29.0 Anion Gap 6 BUN 18 Creatinine 0.91 Estim Creat Clear Calc 71.24 Est GFR (MDRD) Af Amer 79 Est GFR (MDRD) Non-Af 65 BUN/Creatinine Ratio 19.7 Glucose 150 H Calcium 9.0 Troponin I High Sens 4 5 B-Natriuretic Peptide 16.7 Radiography Diagnostic Testing: Clinical Impression(s) from Imaging Studies Chest X-Ray 09/03/24 19:30 IMPRESSION: No radiographic evidence of acute cardiopulmonary disease. Electronically Signed: Osmin Acuña DO at 20:59 EDT Reading Location ID and State: [facility] / [place] Tel [phone], Service support , Discharge Plan Triage Chief Complaint: Chest Pain ED Provider: Gaston Sanchez Dx/Rx/DC Orders Prescriptions: No Action levothyroxine 25 mcg capsule 137 mcg PO DAILY multivitamin Tablet 1 tab PO DAILY glucosamine-chondroitin 900 mg tablet 900 mg PO DAILY coenzyme Q10 [CoQ-10] 100 mg capsule 100 mg PO DAILY cinnamon bark [Cinnamon] 500 mg capsule 500 mg PO DAILY omega 2-jvc-mbp-fish oil [Fish Oil] 300-1,000 mg capsule 1 cap PO DAILY magnesium 30 mg tablet 30 mg PO DAILY cholecalciferol (vitamin D3) 75 mcg (3,000 unit) tablet 50 mcg PO DAILY atorvastatin 10 mg tablet 10 mg PO DAILY trazodone 50 mg tablet 50 mg PO QHS PRN (Reason: insomnia) loratadine [Claritin] 10 mg tablet 10 mg PO DAILY (DME) Hydrocortisone 2.5%/lidocaine 5% suppository (cmpd) Suppository See Rx Instructions .Route Qty: 30 1RF Rx Instructions: insert 1 suppository twice daily. escitalopram oxalate 20 mg tablet 20 mg PO DAILY Primary Care Provider: Yonatan Courtney Referrals: Yonatan Courtney MD [Primary Care Provider] - Print Language: Yoruba
--- NOTE | 2024-09-03 19:13 | EKG12_ITS ---
Test Reason : CP Blood Pressure : / mmHG Vent. Rate : 097 BPM Atrial Rate : 097 BPM P-R Int : 150 ms QRS Dur : 086 ms QT Int : 360 ms P-R-T Axes : 057 -36 035 degrees QTc Int : 457 ms Normal sinus rhythm Left axis deviation Moderate voltage criteria for LVH, may be normal variant ( R in aVL , [place] product ) Abnormal ECG Confirmed by GABRIELE GARCIA, LOPEZ ([id number]), editor in chief newspaper ROSALIA PHELPS ([id number]) on 09/05/2024 10:05:25 AM Referred By: Confirmed By:LOPEZ SUAZO MD
--- NOTE | 2024-09-03 19:30 | RAD_ITS ---
INDICATION: chest pain EXAMINATION/TECHNIQUE: X-RAY - XR Chest 1 View COMPARISON: February 15, 2018 FINDINGS: LINES/DEVICES: None. LUNGS: No consolidation, edema or effusion. No pneumothorax. MEDIASTINUM AND CARDIOVASCULAR STRUCTURES: Cardiac silhouette not enlarged. Central airways and mediastinal contour are unremarkable. BONES AND SOFT TISSUES: Unremarkable. RAD/Chest 1 View (Portable) IMPRESSION: No radiographic evidence of acute cardiopulmonary disease. Electronically Signed: Osmin Acuña DO at 20:59 EDT ,
[2024-09-03 19:36] LABS: Absolute Neutrophil Count 4.8 X10^3/uL (2.0-7.7); Basophil# 0.07 X10^3/uL; Basophil% 0.9 % (0-1); Eosinophil# 0.25 X10^3/uL; Eosinophils% 3.2 % (0-5); Hematocrit 40.1 % (37-47); Hemoglobin 12.9 g/dL (12.0-15.0); Lymphocyte % 27.7 % (19-41); Mean Corp Hgb Conc 32.2 g/dL (32-36); Mean Corpuscular Hgb 30.6 pg (27.0-32.0); Mean Platelet Vol. 9.6 fl (6.2-12.0); Monocyte# 0.62 X10^3/uL; Monocyte% 7.8 % (0-10); NRBC Flagged by Analyzer 0 % (0-5); Neutrophil # 4.76 X10^3/uL (2.7-7.7); Platelet Count 275 K/mm3 (150-450); RBC Distribution Width CV 13.8 % (11.6-14.6); RBC Distribution Width SD 47.8 fl (35.1-43.9); Red Blood Count 4.22 M/mm3 (4.2-5.4); White Blood Count 7.9 K/mm3 (4.4-11.0)
[2024-09-03] MEDS: 0.9% Normal Saline (1000mL) 1,000 ML 999 ML IV (19:40)
[2024-09-03 19:59] LABS: D-Dimer Quantitative (DVT/PE) 0.48 FEU/ug/m (0.27-0.49)
[2024-09-03 20:00] LABS: Anion Gap 6 (5-15); BUN 18 mg/dL (7-18); BUN/Creat Ratio 19.7 RATIO (10-20); Chloride 103 mmol/L (98-107); Creatinine, Serum 0.91 mg/dL (0.55-1.02); EST Glomerular Filtration Rate 65 mL/min (>60); Est Glom Filt Rate - Afr Amer 79 mL/min (>60); Estimated Creatinine Clearance 71.24 ml/min; Glucose 150 mg/dL (74-106); Potassium 3.9 mmol/L (3.5-5.1); Sodium Level 138 mmol/L (136-145); Troponin-I HS (w/2H Reflex) 4 pg/mL (3.0-54.0)
[2024-09-03 20:17] LABS: BNP,B-Type NATRIURETIC PEPTIDE 16.7 pg/mL (0-100)
--- OUTSIDE RECORDS SUMMARY | 2024-09-03 20:17 | XMS RPT_ITS | CCD ---
Author Organization [facility] Inform ion Partnership [facility] Care Team Providers Care Rn Anesthesiology Name Role Phone Dossi GARCIAValentina Tomasa Unavailable Tyrese Quiñonez Unavailable Yonatan Thompson MD Primary Care Provider [phone] Tyrese Quiñonez Unavailable Yonatan Thompson MD Primary Care Provider YONATAN THOMPSON Primary Care Unavailable TYRESE HENSON Unavailable YONATAN THOMPSON Primary Care Unavailable Tyrese Quiñonez MD Unavailable [phone] Yonatan Thompson MD Primary Care Provider Allergies Allergy Classification Reported Allergen(s) Allergy Type Date of Onset Reaction(s) Facility (4 sources) penicillin v drug allergy 7 [facility]: (6 sources) Adhesive agent; Translations: [ADHESIVE] Propensity to adverse reactions 9 [facility] (2 sources) Penicillins; Translations: [PENICILLINS] Propensity to adverse reactions 9 [facility] (6 sources) rivaroxaban; Translations: [RIVAROXABAN] Drug Allergy 1 Unknown [facility] (6 sources) Seasonal allergy; Translations: [SEASONAL ALLERGIES] Allergy to substance 2 Other: See Comments [facility] (4 sources) Penicillins Propensity to adverse reactions 9 [facility] Medications Current Medications Medication Drug Class(es) Dates Sig (Normalized) Sig (Original) benoxinate hydrochloride 4 mg/ml / fluorescein sodium 2.5 mg/ml ophthalmic solution (1 source) Diagnostic Dye Start: 04-09-2022 End: 04-10-2022 fluorescein-benoxi kassandra 0.25-0.4 % 1 Drop (FLURESS) COQ10, LIPOSOMAL UBIQUINOL, ORAL (5 sources) COQ10, LIPOSOMAL UBIQUINOL, ORAL Take by mouth once daily. Active COQ10, LIPOSOMAL UBIQUINOL, ORAL Take by mouth once daily. 0 Active Comment on above: Take by mouth once d aily. cyclopentolate hydrochloride 10 mg/ml ophthalmic solution (5 sources) Start: take 1 drop(s) into the eye(s) twice daily cyclopentolate (CYCLOGYL) 1 % ophthalmic solution Use 1 Drop in the right eye twice daily. 1 Bottle 3 04/01/2021 Active Start: 04-01-2021 take 1 drop(s) into the eye(s) twice daily cyclopentolate (CYCLOGYL) 1 % ophthalmic solution Use 1 Drop in the right eye twice daily. 1 Bottle 3 04/01/2021 Active Comment on above: Use 1 Drop in the ri ght eye twice daily. dorzolamide 20 mg/ml / timolol 5 mg/ml ophthalmic solution (5 sources) Carbonic Anhydrase Inhibitor, beta-Adrenergic Rashmi Start: 04-01-2021 take 1 drop(s) into the eye(s) twice daily dorzolamide-timolol (COSOPT) 22.3-6.8 mg/mL ophthalmic solution Use 1 Drop in the right eye twice daily. 1 Bottle 3 04/01/2021 Active Start: 04-01-2021 take 1 drop(s) into the eye(s) twice daily dorzolamide-timolol (COSOPT) 22.3-6.8 mg/mL ophthalmic solution Use 1 Drop in the right eye twice daily. 1 Bottle 3 04/01/2021 Active Comment on above: Use 1 Drop in the ri ght eye twice daily. ergocalciferol, vitamin D2, (VITAMIN D2 ORAL) (5 sources) ergocalciferol, vitamin D2, (VITAMIN D2 ORAL) Take by mouth once daily. Active ergocalciferol, vitamin D2, (VITAMIN D2 ORAL) Take by mouth once daily. 0 Active Comment on above: Take by mouth once d aily. escitalopram 20 mg oral tablet (14 sources) Serotonin Reuptake Inhibitor Start: 02-05-2021 escitalopram oxalate (LEXAPRO) 20 mg tablet 02/05/2021 Active Start: 12-12-2017 escitalopram o xalate (LEXAPRO) 10 mg tablet Escitalopram Oxalate Active 10 MG daily December 12, 2017 8:45am 12/12/2017 Active Start: 12-12-2017 escitalopram o xalate (LEXAPRO) 10 mg tablet Escitalopram Oxalate Active 10 MG daily December 12, 2017 8:45am 0 12/12/2017 Active take 1 tablet by mike th once daily in the evening LEXAPRO 20 MG TABS One tablet by mouth daily in the p.m. ESCITALOPRAM OXALATE [id number] Valentina Flores DC Comment on above: Escitalopram Oxalate Active 10 MG daily December 12, 2017 8:45am glucosamine/msm/csa/brittanie/hr b115 (DPLZAYBQNC-WIJZX-QZA-BRITTANIE- 115HC ORAL) (5 sources) glucosamine/msm/ csa/brittanie/ ljy717 (TWGXSKBIXX-BMULV-XCR-CA L-115HC ORAL) Take by mouth once daily. Active glucosamine/msm/ csa/brittanie/acs825 (JBBZVVNDMK-ZUUDG-KIH-BRITTANIE-115HC ORAL) Take by mouth once daily. 0 Active Comment on above: Take by mouth once d aily. ketorolac tromethamine 5 mg/ml ophthalmic solution (5 sources) Nonsteroidal Anti-inflammatory Drug, Cyclooxygenase Inhibitor Start: take 1 drop(s) into the eye(s) four times daily keTORolac (ACULAR) 0.5 % ophthalmic solution Use 1 Drop in the right eye four times daily. 5 mL 04/28/2021 Active Start: 04-28-2021 take 1 drop(s) into the eye(s) four times daily keTORolac (ACULAR) 0.5 % ophthalmic solution Use 1 Drop in the right eye four times daily. 5 mL 0 04/28/2021 Active Comment on above: Use 1 Drop in the ri ght eye four times daily. levothyroxine sodium 0.025 mg oral capsule (14 sources) l-Thyroxine Start: 12-12-2017 levothyroxine 25 mcg cap levothyroxine 25 mcg capsule Active December 12, 2017 8:45am 12/12/2017 Active Start: 08-12-2005 SYNTHROID 112 MCG ORAL TAB Take by mouth. 0 08/12/2005 Active take 1 tablet by mike th once daily in the morning LEVOTHYROXINE SODIUM 125 MCG TABS One tablet by mouth daily in the a.m. LEVOTHYROXINE SODIUM [id number] Valentina Flores DC Comment on above: Take by mouth. levothyroxine 25 mcg capsule Active December 12, 2017 8:45am loratadine 10 mg oral tablet (5 sources) Start: 05-26-2009 loratadine(CLARITIN 10 MG TAB) Take one(1) tablet daily as needed for allergy symptoms. 0 05/26/2009 Active Comment on above: Take one(1) tablet d aily as needed for allergy symptoms. multivitamins(DAILY VITAMIN TAB) (5 sources) Start: 05-26-2009 multivitamins(DAILY VITAMIN TAB) Take by mouth. 0 05/26/2009 Active Comment on above: Take by mouth. Zycxv-1-IGT-EPA-Fish Oil 300-1,000 mg cap (4 sources) Qqyxf-3-WLR-EPA- Fish Oil 300-1,000 mg cap Take by mouth once daily. Active Ygsec-4-XEO-EPA- Fish Oil 300-1,000 mg cap Take by mouth once daily. 0 Active Comment on above: Take by mouth once d aily. phenylephrine hydrochloride 25 mg/ml ophthalmic solution (1 source) alpha-1 Adrenergic Agonist Start: End: PHENYLephrine 2.5 % 1 Drop (AK-DILATE, JUSTICE-SYNEPHRINE) prednisoLONE acetate 10 mg/ml ophthalmic suspension (5 sources) Corticosteroid Start: prednisoLONE acetate (PRED FORTE, ECONOPRED PLUS) 1 % ophthalmic suspension INSTILL 1 DROP INTO RIGHT EYE 4 TIMES DAILY 15 mL 2 09/22/2021 Active Comment on above: INSTILL 1 DROP INTO RIGHT EYE 4 TIMES DAILY pregabalin 75 mg oral capsule (5 sources) Start: take 1 capsule by mouth once daily pregabalin (LYRICA) 75 mg capsule Take 75 mg by mouth once daily. 05/14/2021 Active Comment on above: Take 75 mg by mouth once daily. proparacaine hydrochloride 5 mg/ml ophthalmic solution (1 source) Local Anesthetic Start: End: proparacaine 0.5 % 1 Drop (ALCAINE) rosuvastatin calcium 5 mg oral tablet (5 sources) HMG-CoA Reductase Inhibitor Start: take 1 tablet by mouth once daily rosuvastatin (CRESTOR) 5 mg tablet Take 5 mg by mouth once daily. 02/12/2021 Active Comment on above: Take 5 mg by mouth o nce daily. tropicamide 10 mg/ml ophthalmic solution (1 source) Anticholinergic Start: End: tropicamide 1 % 1 Drop (MYDRIACYL) Completed/Discontinued Medications Medication Drug Class(es) Dates Sig (Normalized) Sig (Original) Vrxws-8-XBU-EPA-Fish Oil (FISH OIL) 300-1,000 mg cap (1 source) Finjs-2-TCO-EPA- Fish Oil (FISH OIL) 300-1,000 mg cap Take by mouth once daily. 0 Active Comment on above: Take by mouth once d aily. Problems Active Problems Problem Classification Problem Date Documented Da te Episodic/Chronic Cataract (1 source) Pseudophakia; Translations: [Presence of intraocular lens] Chronic Complication of device; implant or graft (1 source) Dppnnjv-dmircax-ali ucoma syndrome of right eye; Translations: [Other mechanical complication of other ocular prosthetic devices, implants and grafts, initial encounter] Episodic Nonmalignant breast conditions (5 sources) Fibrocystic disease of breast; Translations: [Diffuse cystic mastopathy of unspecified breast] Onset: 07-16-2010 07-16-2010 Chronic Other connective tissue disease (2 sources) Pain in right foot; Translations: [Pain in right foot] Episodic Other connective tissue disease (1 source) Pain in right foot; Translations: [Foot pain, right] Onset: 05-18-2023 Episodic Other non-traumatic joint disorders (3 sources) Acute ankle pain; Translations: [Pain in [...] Results Test Name Value Interpretation Reference Range Facility [facility] 05-18-2023 [facility] Telephone ([facility]) -------- RACHELLE CHAMPION ([id number]) 1955 F Date Time Provider Department 05/18/23 ASHER GARCIA [facility] During your visit today, we recorded the following information about you: Asher Garcia PA-C 05/18/2023 9:10 AM Signed Please call patient and let her know her x-ray showed no fractures. She does have an incidental heel spur as well as a mild bunion on her x-rays these are not likely causing her symptoms. Follow-up with podiatry if not improving. Attila Fay 05/18/2023 2:43 PM Signed Patient given results and verbalized understanding of instructions given. Attila Fay Allergies As of Date: 05/18/2023 Noted Allergy Reaction ADHESIVE 06/09/2009 PENICILLINS 06/02/2009 SEASONAL ALLERGIES 01/06/2012 14 - Other: See Comments Comments: Sneezing AND congestion XARELTO (RIVAROXABAN) 04/27/2021 16 - Unknown Date Reviewed: 05/17/2023 Reviewed by: Tyrese Henson APRN.SCREEN PRINTING PASTER - Fully Assessed Reason for Visit: Results [95] Primary Visit Diagnosis:Acute right ankle pain [M25.571] Order(s):CONSULT TO PODIATRY [9034] Order #: [id number]: 1 FUTURE Prescriptions as of 05/18/2023 - Qyvwz-4-TOX-EPA-Fi sh Oil 300-1,000 mg cap Take by mouth once daily. - ergocalciferol, vitamin D2, (VITAMIN D2 ORAL) Take by mouth once daily. - COQ10, LIPOSOMAL UBIQUINOL, ORAL Take by mouth once daily. - glucosamine/msm/cs a/brittanie/qzg132 (GLUCOSAMIN-CHOND- KFO-KKJ-978ON ORAL) Take by mouth once daily. - [...] in the right eye twice daily. - dorzolamide-timolo l (COSOPT) 22.3-6.8 mg/mL ophthalmic solution Use 1 [...] capsule Active December 12, 2017 8:45am - loratadine(CLARITI N 10 MG TAB) Take one(1) tablet daily as needed for allergy symptoms. - multivitamins(GRIFFIN Y VITAMIN TAB) Take by mouth. - SYNTHROID 112 MCG ORAL TAB Take by mouth. Problem List As Of Date 05/18/2023 Noted Resolved Fibrocystic Breast Changes [N60.19] 07/16/2010 Encounter Status:Closed by ATTILA FAY on 05/18/23 [facility] No Panel Informationon 05-18 IMPRESSION: No acute osseous abnormality Matcher: [email or web address] Transcribe Date/Time: May 18 2023 8:57A Dictated by : NGOZI AMOR MD This examination was interpreted and the report reviewed and electronically signed by: NGOZI AMOR MD on Eugenio 5 2023 9:00AM EST DIVISION OF RADIOLOGY Radiology Study observation (narrative) [facility] No Panel InformationOrdered By: [facility]cf Provider on 05-18-2023 [facility] XR ANKLE 3V AP/LAT/OBL RTon 05-18-2023 XR ANKLE 3V AP/LAT/OBL RT * * *Final Report* * * DATE OF EXAM: May 18 2023 8:57AM WOX [id number] - XR ANKLE 3V AP/LAT/OBL RT / PROCEDURE REASON: multiple diagnoses * * * * Physician Interpretation * * * * EXAMINATION: XR ANKLE 3V AP/LAT/OBL RT, XR FOOT 3V AP/LAT/OBL RT CLINICAL HISTORY: Right ankle and right foot pain Technique: XR ANKLE 3V AP/LAT/OBL RT, XR FOOT 3V AP/LAT/OBL RT -- RIGHT with 3 views on 3 images Comparison: None RESULT: No acute fracture or dislocation. Ankle mortise is maintained. Mild right hallux valgus deformity. Plantar calcaneal spur. IMPRESSION: No acute osseous abnormality Matcher: [facility] Transcribe Date/Time: May 18 2023 8:57A Dictated by : NGOZI AMOR MD This examination was interpreted and the report reviewed and electronically signed by: NGOZI AMOR MD on May 18 2023 9:00AM EST [id number] IACN Normal [facility] XR Ankle - right AP and Late ral and obliqueon 05-18-2023 * * *Final Report* * * DATE OF EXAM: May 18 2023 8:57AM WOX [id number] - XR ANKLE 3V AP/LAT/OBL RT / PROCEDURE REASON: multiple diagnoses * * * * Physician Interpretation * * * * EXAMINATION: XR ANKLE 3V AP/LAT/OBL RT, XR FOOT 3V AP/LAT/OBL RT CLINICAL HISTORY: Right ankle and right foot pain Technique: XR ANKLE 3V AP/LAT/OBL RT, XR FOOT 3V AP/LAT/OBL RT -- RIGHT with 3 views on 3 images Comparison: None RESULT: No acute fracture or dislocation. Ankle mortise is maintained. Mild right hallux valgus deformity. Plantar calcaneal spur. DIVISION OF RADIOLOGY Provider, [facility] - 05/18/2023 * * *Final Report* * * DATE OF EXAM: May 18 2023 8:57AM WOX 5297 - XR ANKLE 3V AP/LAT/OBL RT / PROCEDURE REASON: multiple diagnoses * * * * Physician Interpretation * * * * EXAMINATION: XR ANKLE 3V AP/LAT/OBL RT, XR FOOT 3V AP/LAT/OBL RT CLINICAL HISTORY: Right ankle and right foot pain Technique: XR ANKLE 3V AP/LAT/OBL RT, XR FOOT 3V AP/LAT/OBL RT -- RIGHT with 3 views on 3 images Comparison: None RESULT: No acute fracture or dislocation. Ankle mortise is maintained. Mild right hallux valgus deformity. Plantar calcaneal spur. IMPRESSION IMPRESSION: No acute osseous abnormality Matcher: [email or web address] Transcribe Date/Time: May 18 2023 8:57A Dictated by : NGOZI AMOR MD This examination was interpreted and the report reviewed and electronically signed by: NGOZI AMOR MD on May 18 2023 9:00AM EST [facility] XR FOOT 3V AP/LAT/OBL RTon 0 05-18-2023 XR FOOT 3V AP/LAT/OBL RT * * *Final Report* * * DATE OF EXAM: May 18 2023 8:57AM WOX 5337 - XR FOOT 3V AP/LAT/OBL RT / PROCEDURE REASON: multiple diagnoses * * * * Physician Interpretation * * * * EXAMINATION: XR ANKLE 3V AP/LAT/OBL RT, XR FOOT 3V AP/LAT/OBL RT CLINICAL HISTORY: Right ankle and right foot pain Technique: XR ANKLE 3V AP/LAT/OBL RT, XR FOOT 3V AP/LAT/OBL RT -- RIGHT with 3 views on 3 images Comparison: None RESULT: No acute fracture or dislocation. Ankle mortise is maintained. Mild right hallux valgus deformity. Plantar calcaneal spur. IMPRESSION: No acute osseous abnormality Matcher: [facility] Transcribe Date/Time: May 18 2023 8:57A Dictated by : NGOZI AMOR MD This examination was interpreted and the report reviewed and electronically signed by: NGOZI AMOR MD on May 18 2023 9:00AM EST [id number] IACN Normal [facility] XR Foot - right AP and Later al and obliqueon 05-18-2023 * * *Final Report* * * DATE OF EXAM: May 18 2023 8:57AM WOX 5337 - XR FOOT 3V AP/LAT/OBL RT / PROCEDURE REASON: multiple diagnoses * * * * Physician Interpretation * * * * EXAMINATION: XR ANKLE 3V AP/LAT/OBL RT, XR FOOT 3V AP/LAT/OBL RT CLINICAL HISTORY: Right ankle and right foot pain Technique: XR ANKLE 3V AP/LAT/OBL RT, XR FOOT 3V AP/LAT/OBL RT -- RIGHT with 3 views on 3 images Comparison: None RESULT: No acute fracture or dislocation. Ankle mortise is maintained. Mild right hallux valgus deformity. Plantar calcaneal spur. DIVISION OF RADIOLOGY Provider, [facility] - 05/18/2023 * * *Final Report* * * DATE OF EXAM: May 18 2023 8:57AM WOX 5337 - XR FOOT 3V AP/LAT/OBL RT / PROCEDURE REASON: multiple diagnoses * * * * Physician Interpretation * * * * EXAMINATION: XR ANKLE 3V AP/LAT/OBL RT, XR FOOT 3V AP/LAT/OBL RT CLINICAL HISTORY: Right ankle and right foot pain Technique: XR ANKLE 3V AP/LAT/OBL RT, XR FOOT 3V AP/LAT/OBL RT -- RIGHT with 3 views on 3 images Comparison: None RESULT: No acute fracture or dislocation. Ankle mortise is maintained. Mild right hallux valgus deformity. Plantar calcaneal spur. IMPRESSION IMPRESSION: No acute osseous abnormality Matcher: [facility] Transcribe Date/Time: May 18 2023 8:57A Dictated by : NGOZI AMOR MD This examination was interpreted and the report reviewed and electronically signed by: NGOZI AMOR MD on May 18 2023 9:00AM EST [facility] CNOVon 05-17-2023 CNOV Office Visit ([facility]) -------- RACHELLE CHAMPION ([id number]) 1955 F Date Time Provider Department 05/17/23 8:15 AM TYRESE HENSON [facility] During your visit today, we recorded the following information about you: Temperature Pulse Respiration Blood pressure 98.4 degrees 70/minute 18/minute 110/62 Weight 96.8 kg Tyrese Henson APRN.CNP 05/17/2023 8:51 AM Signed Subjective HPI Nontoxic-appearing female presents urgent care [...] Date Allergic rhinitis Detached retina, right Glaucoma Ffdkkio-uxfrtfc-qz aucoma syndrome of right eye PAST SURGICAL HISTORY Procedure Laterality Date ARTHROSCOPY KNEE; W/ FIXATION bone spur left, torn meniscus on right EXCHANGE OF INTRAOCULAR LENS S/p IOL Exchange/PPV OD:04/27/2021 PAST SURGICAL HISTORY OF LASIK both eyes. VAGINAL HYSTERECTOMY UTERUS 250 GM/< Hysterectomy, vaginal VITRECTOMY,MECHANI BRITTANIE S/p IOL Exchange/PPV OD:04/27/2021 ALLERGIES Adhesive, Penicillins, Seasonal Allergies, and Xarelto [Rivaroxaban] MEDICATIONS Xcwoc-0-GWH-EPA-Fi sh Oil 300-1,000 mg cap Take by mouth once daily. ergocalciferol, vitamin D2, (VITAMIN D2 ORAL) Take by mouth once daily. COQ10, LIPOSOMAL UBIQUINOL, ORAL Take by mouth once daily. glucosamine/msm/cs a/brittanie/chb186 (GLUCOSAMIN-CHOND- PJE-LAZ-529AN ORAL) Take by mouth once daily. prednisoLONE [...] mcg capsule Active December 12, 2017 8:45am loratadine(CLARITI N 10 MG TAB) Take one(1) tablet daily as needed for allergy symptoms. multivitamins(GRIFFIN Y VITAMIN TAB) Take by mouth. SYNTHROID 112 MCG ORAL TAB Take by mouth. pregabalin (LYRICA) 75 mg capsule Take 75 mg by mouth once daily. (Patient not taking: Reported on 01/08/2022) cyclopentolate (CYCLOGYL) 1 % ophthalmic solution Use 1 Drop in the right eye twice daily. (Patient not taking: Reported on 05/22/2021 ) dorzolamide-timolo l (COSOPT) 22.3-6.8 mg/mL ophthalmic solution Use 1 [...] Rate and Rhythm: Normal rate. Pulmonary: Effort: (more content not included)... Normal [facility] Office Visit: Spine Visit- N tanya & upper back painon 08-01-2017 Documentation of current medications (procedure) Done Invalid Interpretation Code [facility] Work Phone: Office Visit: Spine Visit- N tanya & lower back painon 04-28-2017 Protein mass conc Done [email or web address] Work Phone: Office Visit: Spine Visit-ne ck , lower lumbar painon 02-09-2017 Tobacco smoking status VAIS Never Invalid Interpretation Code [facility] Work Phone: Tobacco smoking status VAIS Former smoker [facility] Work Phone: Tobacco use [facility] Former smoker Invalid Interpretation Code [facility] Work Phone: Office Visit: Spine Visit - Neck and Upper Back Painon 11-18-2014 MG Breast screening Normal Bilateral Invalid Interpretation Code [facility] Work Phone: Office Visit: Spine Visit - Neck and Upper Back Painon 11-15-2011 Colonoscopy (procedure) Colonoscopy (procedure) Invalid Interpretation Code [facility] Work Phone: Protein mass conc Colonoscopy (procedure) [facility] Work Phone: OCT MACULA CIRRUS OU (BOTH E YES) [facility] Vital Signs Date Time Vital Sign Value Performing Clinician Facility 05-17-2023 08:22-0400 Body temperature 98.4 [degF] Tyrese Henson APRN.SCREEN PRINTING PASTER Work Phone: [facility] 05-17-2023 08:22-0400 Body weight 96.8 kg Tyrese [facility] [place] [employer] ATTENDANT.SCREEN PRINTING PASTER Work Phone: [facility] 05-17-2023 08:22-0400 Diastolic blood pressure 62 mm[Hg] [facility] [place] [employer] ATTENDANT.SCREEN PRINTING PASTER Work Phone: [facility] 05-17-2023 08:22-0400 Heart rate 70 /min [facility] [place] [employer] ATTENDANT.SCREEN PRINTING PASTER Work Phone: [facility] 05-17-2023 08:22-0400 Respiratory rate 18 /min [facility] [place] [employer] ATTENDANT.SCREEN PRINTING PASTER Work Phone: [facility] 05-17-2023 08:22-0400 SaO2% (BldA) [Mass fraction] 97 % [facility] [place] [employer] ATTENDANT.SCREEN PRINTING PASTER Work Phone: [facility] 05-17-2023 08:22-0400 Systolic blood pressure 110 mm[Hg] Tyrese [facility] [place] [employer] ATTENDANT.SCREEN PRINTING PASTER Work Phone: [facility] 12-13-2016 09:19-0500 BP Diastolic 78 mm[Hg] Valentina Dossi [facility] Work Phone: 12-13-2016 09:19-0500 BP Systolic 138 mm[Hg] Valentina Dossi DC [facility] Work Phone: 12-13-2016 09:19-0500 Weight 96.03 kg Valentina NemeriXsi DC [facility] Work Phone: Encounters Encounter Date Encounter Type Care Provider Facility Start: 05-19-2023 ambulatory Pcp (Historical) [facility] Start: 05-18-2023 Telephone encounter Asher burkett PA-C Work Phone: [facility] Comment on above: Results Start: 05-18-2023 End: 05-18-2023 ambulatory TYRESE [facility] Facility:[facility] Start: 05-18-2023 End: 05-18-2023 Subsequent hospital visit by physician [facility]na Work Phone: Radiology Comment on above: Foot pain, right [M7 9.671] Start: 05-17-2023 End: 05-17-2023 ambulatory YONATAN Sainz THOMPSON Facility:[facility] Start: 05-17-2023 End: 05-17-2023 Office outpatient visit 15 minutes Tyrese Henson APRN.SCREEN PRINTING PASTER Work Phone: [facility] Comment on above: Foot pain, right (Pr imary Dx); Acute right ankle pain Start: 04-09-2022 End: 04-09-2022 Patient encounter procedure Marium Elam MD Work Phone: Ophthalmology Comment on above: CME (cystoid macular edema), right (Primary Dx); Ewpusyw-xwzmzms-pxmfaqsc syndrome of right eye; Pseudophakia Procedures Date Procedure Procedure Detail Performing Clinician Start: 05-18-2023 Radex ankle complete minimum 3 views Tyrese Henson APRN.SCREEN PRINTING PASTER Work Phone: Start: 04-09-2022 Computerized ophthal lucille imaging retina Marium Elam MD Work Phone: Start: 08-01-2017 End: 08-01-2017 Appl modality 1/> areas elec stimj unattended Valentina Randolph Dossi DC Work Phone: Start: 08-01-2017 End: [...] modality 1/> areas elec stimj unattended Arianna Tobin Start: 12-29-2016 End: 12-29-2016 Appl modality 1/> areas traction mechanical Arianna Tobin Start: 12-29-2016 End: 12-29-2016 Chiropractic manipulative tx spinal 3-4 regions Arianna Tobin Start: 12-29-2016 End: 12-29-2016 Chiropractic manipulation Arianna milian Start: 12-29-2016 End: 12-29-2016 Electric stimulation therapy Arianna Tobin Start: 12-29-2016 End: 12-29-2016 Mechanical traction therapy Arianna Tobin Start: 12-27-2016 End: 12-27-2016 Appl modality [...] Chiropractic manipulative tx spinal 3-4 regions Valentina Tomasa Flores DC Work Phone: Start: 12-15-2016 End: 12-16-2016 Chiropractic manipulation Valentina Randolph Sandra ZELAYA Work Phone: Plan of Treatment Date Care Activity Detail Author Start: 12-23-2032 Urine microalbumin profile DTaP,Tdap,Td Vaccine (3 - Td or Tdap) [facility] Start: 07-15-2024 Covid-19 Vaccine ( season) Covid-19 Vaccine ( season) [facility] Start: 07-15-2024 Influenza vaccination Influenza Vacc ine (#1) [facility] Start: 11-14-2023 Advance Directive Discussion Advance Directive Discussion [facility] Start: 09-16-2023 Pneumococcal Vaccine : 65+ (2 of 2 - PCV) Pneumococcal Vaccine: 65+ (2 of 2 - PCV) [facility] Start: 07-15-2023 Influenza vaccination INFLUENZA (#1) [facility] Start: 04-24-2023 End: 10-01-2023 OCT MACULA CIRRUS OU (BOTH EYES) OCT MACULA CIRRUS OU (BOTH EYES) [facility] Imaging Routine CME (cystoid macular edema), right Fnfoenc-isjvbhx-jojdtyc a syndrome of right eye Pseudophakia Expected: 04/24/2023, Expires: 10/01/2023 [facility] Work Phone: Comment on above: Expected: 04/24/2023 , Expires: 10/01/2023 Start: 11-14-2022 ADVANCE DIRECTIVE DISCUSSION ADVANCE DIRECTIVE DISCUSSION [facility] Start: 11-14-2022 DEPRESSION ASSESSMENT DEPRESSION ASS ESSMENT [facility] Start: 2022 BONE DENSITY BONE DENSITY [facility] [facility] Start: 2022 PNEUMOCOCCAL: 65+ (1 - PCV) PNEUMOCOCCAL: 65+ (1 - PCV) [facility] Start: 2022 Screening for osteoporosis Bone Density Screening [facility] Start: 05-13-2022 COVID-19 VACCINE (6 - Booster for Moderna series) COVID-19 VACCINE (6 - Booster for Moderna series) [facility] Start: 08-01-2017 End: 08-01-2017 Appointment Appointment [facility] Work Phone: Start: 2017 RSV Vaccine (1 - 1-d ose 60+ series) RSV Vaccine (1 - 1-dose 60+ series) [facility] Start: 04-28-2017 End: 04-28-2017 Appointment Appointment [facility] Work Phone: Start: 02-09-2017 End: 02-10-2017 Follow up Appt 1x/week Follow up Appt 1x/week [facility] Work Phone: Start: 02-09-2017 End: 02-10-2017 Follow up Appt 1x/week Follow up Appt 1x/week [facility] Work Phone: Start: 01-31-2017 End: 01-31-2017 Follow up Appt 2x/week Follow up Appt 2x/week [facility] Work Phone: Start: 01-31-2017 End: 01-31-2017 Follow up Appt 2x/week Follow up Appt 2x/week [facility] Work Phone: Start: 01-24-2017 End: 01-24-2017 Follow up Appt 2x/week Follow up Appt 2x/week [facility] Work Phone: Start: 01-24-2017 End: 01-24-2017 Follow up Appt 2x/week Follow up Appt 2x/week [facility] Work Phone: Start: 01-17-2017 End: 01-17-2017 Follow up Appt 2x/week Follow up Appt 2x/week [facility] Work Phone: Start: 01-17-2017 End: 01-17-2017 Follow up Appt 2x/week Follow up Appt 2x/week [facility] Work Phone: Start: 01-05-2017 End: 01-05-2017 Follow up Appt 2x/week Follow up Appt 2x/week [facility] Work Phone: Start: 01-05-2017 End: 01-05-2017 Follow up Appt 2x/week Follow up Appt 2x/week [facility] Work Phone: Start: 12-29-2016 End: 12-29-2016 Follow up Appt 2x/week Follow up Appt 2x/week [facility] Work Phone: Start: 12-29-2016 End: 12-29-2016 Follow up Appt 2x/week Follow up Appt 2x/week [facility] Work Phone: Start: 12-27-2016 End: 12-27-2016 Follow up Appt 2x/week Follow up Appt 2x/week [facility] Work Phone: Start: 12-27-2016 End: 12-27-2016 Follow up Appt 2x/week Follow up Appt 2x/week [facility] Work Phone: Start: 12-22-2016 End: 12-22-2016 Follow up Appt 3x/week Follow up Appt 3x/week [facility] Work Phone: Start: 12-22-2016 End: 12-22-2016 Follow up Appt 3x/week Follow up Appt 3x/week [facility] Work Phone: Start: 12-20-2016 End: 12-20-2016 Follow up Appt 3x/week Follow up Appt 3x/week [facility] Work Phone: Start: 12-20-2016 End: 12-20-2016 Follow up Appt 3x/week Follow up Appt 3x/week [facility] Work Phone: Start: 12-15-2016 End: 12-16-2016 Follow up Appt 3x/week Follow up Appt 3x/week [facility] Work Phone: Start: 12-15-2016 End: 12-16-2016 Follow up Appt 3x/week Follow up Appt 3x/week [facility] Work Phone: Start: 12-13-2016 End: 12-15-2016 Follow up Appt 3x/week Follow up Appt 3x/week [facility] Work Phone: Start: 12-13-2016 End: 12-15-2016 Radex spine cervical 2 or 3 views X-Ray, Spine, Cervical 2-3 views [facility] Work Phone: Start: 12-13-2016 End: 12-15-2016 Follow up Appt 3x/week Follow up Appt 3x/week [facility] Work Phone: Start: 12-13-2016 End: 12-15-2016 X-ray exam of neck spine X-Ray, Spine, Cervical 2-3 views [facility] Work Phone: Start: 01-03-2009 PAP TESTING PAP TESTING [facility] Start: 2007 SHINGRIX VACCINE (1 of 2) SHINGRIX VACCINE (1 of 2) [facility] Start: 2002 COLOGUARD (FIT-DNA) COLOGUARD (FIT-D NA) [facility] Start: 2002 Colonoscopy COLONOSCOPY [facility] Start: 2002 COLORECTAL CANCER SCREENING COLORECTAL CANCER SCREENING [facility] Start: [address] [facility] Start: 2002 DIABETES SCREEN DIABETES SCREEN [facility] Start: 2002 Diabetes Screening Diabetes Screenin g [facility] Start: 2002 FECAL OCCULT BLOOD FECAL OCCULT BLOO D [facility] Start: 2002 Lipid panel Lipid Screening [facility] Start: 2002 LIPID SCREEN LIPID SCREEN [facility] Start: 2002 Screening for malign ant neoplasm of colon [facility] Start: 2002 [facility] Start: 1997 Mammography MAMMOGRAM [facility] Start: 1997 Screening for malign ant neoplasm of breast Mammogram Screening [facility] Start: 1987 HPV TESTING HPV TESTING [facility] Start: 1976 Urine microalbumin profile DTAP,TDAP,TD (1 - Tdap) [facility] Start: 1975 Anxiety Screening Anxiety Screening [facility] Start: 1975 Depression Screening Depression Scre terrell [facility] Start: 1975 HEPATITIS C SCREENING HEPATITIS C [facility] Start: 1975 Hepatitis C screening Hepatitis C [facility] Start: 1975 HIV SCREENING HIV SCREENING [facility] Start: 1969 Adult depression screening assessment DEPRESSION SCREENING [facility] End: 2024 XR ANKLE GENERAL 3V AP/LAT/OBL RIGHT XR ANKLE GENERAL 3V AP/LAT/OBL RIGHT Radiology STAT Foot pain, right Acute right ankle pain 1 Occurrences starting 05/17/[address] [facility] Work Phone: Comment on above: 1 Occurrences starti ng 05/17/2023 until 2024 End: 2024 XR FOOT GENERAL 3V AP/LAT/OBL RIGHT XR FOOT GENERAL 3V AP/LAT/OBL RIGHT Radiology STAT Foot pain, right Acute right ankle pain 1 Occurrences starting 05/17/[address] [facility] Work Phone: Comment on above: 1 Occurrences starti ng 05/17/2023 until 2024 Immunizations Immunization Date Immunization Notes Care Provider Kennedy montemayor 09-13-2022 influenza virus vaccine, unspecified formulation Xr Dianna Work Phone: [facility] 08-19-2012 influenza virus vaccine, unspecified formulation Marium Fishman MD Work Phone: [facility] 08-16-2009 influenza virus vaccine, unspecified formulation Marium Fishman MD Work Phone: [facility] Work Phone: 09-13-2006 influenza virus vaccine, unspecified formulation Marium Fishman MD Work Phone: [facility] Work Phone: Payers Date Payer Category Payer Medicare MMO MEDICARE MMO MEDADVANTAGE O [id number] 2022-Present [phone] [address] [place] [address] O [id number] 2022 Unknown [id number] 2020 Unknown [employer] [id number] 2020-Present [phone] [address] [place] [address] PPO [id number] Social History Date Type Detail Facility Start: [facility]17[facility]23 [facility] Work Phone: End: 08-12-1987 History of tobacco use Current smoker [facility] Start: 04-09-2022 End: 05-17-2023 Alcohol intake Current non-drinker of alcohol (finding) [facility] Start: 1955 Sex Assigned At Not on file [facility] Start: 03-30-2022 End: 04-09-2022 Exposure to SARS-CoV-2 (event) Not sure [facility] End: 08-12-1987 History of tobacco use Cigarette Smoker [facility] Start: 05-17-2023 Tobacco use and exposure Smokeless tobacco non-user [facility] Start: 12-10-2022 End: 05-17-2023 History of Social function [facility] Start: 12-10-2022 End: 05-17-2023 Tobacco use panel [facility] National Score (1-100), lower number is lower risk 68 [facility] Medical Equipment Procedure Code Equipment Code Equipment Origin al Text Equipment Identifier Dates Lens Acrysof 6mm +21.5 Diopter 10 D Biconvex Blue Acrylic 13mm Iol - [id number] Start: 04-27-2021 Comment on above: Description: -1.5 Clinical Notes 04-09-2022 to 05-19-2023 Cheryl Henley - 05/19/2023 10:00 AM EDTTelephone Encounter - Attila Fay - 05/18/2023 2:43 PM EDTTelephone Encounter - Asher Garcia PA-C - 05/18/2023 9:09 AM EDTPatient Instructions Note Date & Type Note Facility 05-19-2023 Note Patient Outreach (AC ) RACHELLE CHAMPION ([id number]) 1955 F Date Time Provider Department 05/19/23 [...] Care Gap or Scheduling/Wellness visits Payer: Payor: [employer] MEDICARE / Plan: [employer] HMO / Product Type: HMO / Care [...] Date Reviewed: 05/17/2023 Reviewed by: Tyrese Henson APRN.SCREEN PRINTING PASTER - Fully Assessed Prescriptions as of 05/19/2023 - Lqcjh-0-DZF-EPA-Fish Oil 300-1,000 mg cap Take by mouth once daily. - ergocalciferol, vitamin D2, (VITAMIN D2 ORAL) Take by mouth once daily. - COQ10, LIPOSOMAL UBIQUINOL, ORAL Take by mouth once daily. - glucosamine/msm/csa/brittanie/emt182 (NVNVODHSNH-TLLJS-XAJ-BRITTANIE-115HC ORAL) Take by mouth once daily. - [...] Encounter Status:Closed by CHERYL HENLEY on 05/19/23 [facility] 05-19-2023 Note HNO ID: [id number] Author: Cheryl Henley Service: ? Author Type: ? Type: Progress Notes Filed: 05/19/2023 10:00 AM Note Text: POPULATION HEALTH NAVIGATION OUTREACH Action/FYI 1st call, pt seeing someone outside of [...] Cheryl Henley May 19, 2023 10:00 AM [facility] 05-19-2023 History of Presen t illness Narrative [...] 2023 10:00 AM documented in this encounter [facility] 05-18-2023 Miscellaneous Notes Patient given results and verbalized understanding of instructions given. Attila Fay Please call patient and let her know her x-ray showed no fractures. She does have an incidental heel spur as well as a mild bunion on her x-rays these are not likely causing her symptoms. Follow-up with podiatry if not improving. documented in this encounter [facility] 05-18-2023 Note HNO ID: [id number] Author: RT Aureliano(R) Service: Nuclear Medicine Author [...] PERIPHERAL IV DATA: Not applicable SIGNED BY: RT Aureliano(R) May 18, 2023 8:47 AM [facility] 05-18-2023 History of Presen t illness Narrative Radiology Service Progress Note PATIENT NAME: Rachelle [...] PERIPHERAL IV DATA: Not applicable SIGNED BY: RT Aureliano(R) May 18, 2023 8:47 AM documented in this encounter [facility] 05-17-2023 Note HNO ID: [id number] Author: Tyrese Henson APRN.SCREEN PRINTING PASTER Service: ? Author Type: Nurse Practitioner Type: [...] Date Allergic rhinitis Detached retina, right Glaucoma Zbkaqdg-mfldxkx-fmqtoipt syndrome of right eye PAST SURGICAL HISTORY Procedure Laterality Date ARTHROSCOPY KNEE; W/ FIXATION bone spur left, torn meniscus on right EXCHANGE OF INTRAOCULAR LENS S/p IOL Exchange/PPV OD:04/27/2021 PAST SURGICAL HISTORY OF LASIK both eyes. VAGINAL HYSTERECTOMY UTERUS 250 GM/< Hysterectomy, vaginal VITRECTOMY,MECHANICAL S/p IOL Exchange/PPV OD:04/27/2021 ALLERGIES Adhesive, Penicillins, Seasonal Allergies, and Xarelto [Rivaroxaban] MEDICATIONS Kefur-4-LKW-EPA-Fish Oil 300-1,000 mg cap Take by mouth once daily. ergocalciferol, vitamin D2, (VITAMIN D2 ORAL) Take by mouth once daily. COQ10, LIPOSOMAL UBIQUINOL, ORAL Take by mouth once daily. glucosamine/msm/csa/brittanie/wnk624 (JNBDPJCDCO-OTLKN-RGV-BRITTANIE-115HC ORAL) Take by mouth once daily. prednisoLONE [...] or bony tende (more content not included)... [facility] 05-17-2023 History of Presen t illness Narrative [...] Date Allergic rhinitis Detached retina, right Glaucoma Zveyxmd-qgbyyiu-sgktklxj syndrome of right eye PAST SURGICAL HISTORY Procedure Laterality Date ARTHROSCOPY KNEE; W/ FIXATION bone spur left, torn meniscus on right EXCHANGE OF INTRAOCULAR LENS S/p IOL Exchange/PPV OD:04/27/2021 PAST SURGICAL HISTORY OF LASIK both eyes. VAGINAL HYSTERECTOMY UTERUS 250 GM/< Hysterectomy, vaginal VITRECTOMY,MECHANICAL S/p IOL Exchange/PPV OD:04/27/2021 ALLERGIES Adhesive, Penicillins, Seasonal Allergies, and Xarelto [Rivaroxaban] MEDICATIONS Ofzql-8-XYI-EPA-Fish Oil 300-1,000 mg cap Take by mouth once daily. ergocalciferol, vitamin D2, (VITAMIN D2 ORAL) Take by mouth once daily. COQ10, LIPOSOMAL UBIQUINOL, ORAL Take by mouth once daily. glucosamine/msm/csa/brittanie/yqn940 (MCGHDAMDTW-IAAOI-HBK-BRITTANIE-115HC ORAL) Take by mouth once daily. prednisoLONE [...] of care. This note was generated using Active Endpoints software. It may contain errors in wording, punctuation, or spelling. Tyrese Henson APRN.SCREEN PRINTING PASTER documented in this encounter [facility] 04-09-2022 Instructions Marium Elam V, MD - 04/09/2022 4:14 PM EDT Please follow-up with Dr. Elam for your next eye exam if you have been advised to do so. If you notice any sudden changes to your vision, eye pain, eye redness or irritation, please do not hesitate to call our office to schedule an earlier appointment. To schedule during office hours, call [phone] After office hours you may call [phone] and ask to speak with the ammunition assembly ii laborer extension service specialist. 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 Clarence Wayne (retina specialist in [place]) - unclear what indication was for second [...] no trauma, (+) prior surgery (LASIK) - Satish negative, No holes or tears - Retinal detachment precautions reviewed with patient Hx of LASIK Both Eyes 2006, Myopia - was corrected at near for Right Eye prior to RD/CEIOL (see above) - Unsure which extension service specialist but pt thinks she could find out [...] Marium Elam MD documented in this encounter [facility] Evaluation note Diagnosis CME (cystoid macular edema), right- Primary Dumddxp-rwbunks-sqzxubue syndrome of right eye Pseudophakia Lens replaced by other means [facility] Diagnosis Foot pain, right- Primary Pain in limb Acute right ankle pain [facility] Diagnosis Acute right ankle pain- Primary [facility] Diagnosis Foot pain, right Pain in limb Acute right ankle pain [facility] Diagnostic Procedure Only (Urgent) - Pending Review Specialty Diagnoses / Procedures Referred By Lukasz croft Referred To Contact XR IMAGING Diagnoses Foot pain, right Acute right ankle pain Procedures XR ANKLE GENERAL 3V AP/LAT/OBL RIGHT RADEX ANKLE COMPLETE MINIMUM 3 VIEWS Tyrese Henson APRN.RAIN [address] [place] [address] Xr Imaging Referral ID Status Reason Start Date Expiration Date Visits Requested Visits Authorized [id number] Pending Review Auto-Generat ed Referral 05/17/2023 2024 1 1 * Diagnostic Procedure Only (Urgent) - Pending Review Specialty Diagnoses / Procedures Referred By Contac t Referred To Contact XR IMAGING Diagnoses Foot pain, right Acute right ankle pain Procedures XR FOOT GENERAL 3V AP/LAT/OBL RIGHT RADEX FOOT COMPLETE MINIMUM 3 VIEWS Tyrese Henson APRN.SCREEN PRINTING PASTER [address] [place] [address] Xr Imaging Referral ID Status Reason Start Date Expiration Date Visits Requested Visits Authorized [id number] Pending Review Auto-Generat ed Referral 05/17/2023 2024 1 1 [facility] for referral (narrative)* Diagnostic Procedure Only (Urgent) - Closed Specialty Diagnoses / Procedures Referred By Contac t Referred To Contact XR IMAGING Diagnoses Foot pain, right Acute right ankle pain Procedures XR ANKLE GENERAL 3V AP/LAT/OBL RIGHT RADEX ANKLE COMPLETE MINIMUM 3 VIEWS Tyrese Henson APRN.SCREEN PRINTING PASTER [address] [place] [address] [place] [address] Referral ID Status Reason Start Date Expiration Date V isits Requested Visits Authorized [id number] Closed Auto-Generate d Referral 05/17/2023 2024 1 1 * Diagnostic Procedure Only (Urgent) - Closed Specialty Diagnoses / Procedures Referred By Contac t Referred To Contact XR IMAGING Diagnoses Foot pain, right Acute right ankle pain Procedures XR FOOT GENERAL 3V AP/LAT/OBL RIGHT RADEX FOOT COMPLETE MINIMUM 3 VIEWS Tyrese Henson APRN.SCREEN PRINTING PASTER [address] [place] [address] [place] [address] Referral ID Status Reason Start Date Expiration Date V isits Requested Visits Authorized [id number] Closed Auto-Generate d Referral 05/17/2023 2024 1 1 [facility]* Diagnostic Procedure Only (Urgent) - Closed Specialty Diagnoses / Procedures Referred By Lukasz croft Referred To Contact XR IMAGING Diagnoses Foot pain, right Acute right ankle pain Procedures XR ANKLE GENERAL 3V AP/LAT/OBL RIGHT RADEX ANKLE COMPLETE MINIMUM 3 VIEWS Tyrese Henson APRN.SCREEN PRINTING PASTER [address] [place] [address] [place] [address] Referral ID Status Reason Start Date Expiration Date V isits Requested Visits Authorized [id number] Closed Auto-Generate d Referral 05/17/2023 2024 1 1 [facility] Medications Administered Section Active Administered Medications - [...] 3:30 PM EDT 1 Drop Advance Directives Documents on File Type Date Recorded Patient Manager Cargo Expl anation Advance Directive(s) 04/20/2021 12:16 PM co le eye Reason for Referral Specialty Diagnoses / Procedures Referred By Lukasz croft Referred To Contact Podiatry Diagnoses Acute right ankle pain Procedures CONSULT TO PODIATRY OFFICE/OUTPATIENT [facility] 60-74 MINUTES Asher Garcia PA-C [address] [place] [address] Referral ID Status Reason Start Date Expiration Date Visits Requested Visits Authorized [id number] Authorized PCP Requested Referral 05/18/2023 05/17/2024 1 [...] or prosecute any alcohol or drug abuse patient.[facility] the event this information is protected by the Federal Confidentiality of Alcohol and Drug Abuse Patient Records regulations: The Federal rules restrict any use of the information to criminally investigate or prosecute any alcohol or drug abuse patient.[facility] the event this information is protected by the Federal Confidentiality of Alcohol and Drug Abuse Patient Records regulations: The Federal rules restrict any use of the information to criminally investigate or prosecute any alcohol or drug abuse patient.[facility] the event this information is protected by the Federal Confidentiality of Alcohol and Drug Abuse Patient Records regulations: The Federal rules restrict any use of the information to criminally investigate or prosecute any alcohol or drug abuse patient.[facility] the event this information is protected by the Federal Confidentiality of Alcohol and Drug Abuse Patient Records regulations: The Federal rules restrict any use of the information to criminally investigate or prosecute any alcohol or drug abuse patient.[facility] Reason for Visit (unrecogniz ed section and content) Reason Comments Cystoid Macular Edema Follow Up Specialty Diagnoses / Procedures Referred By Lukasz t Referred To Contact OPHTHALMOLOGY Diagnoses Return in 2-3 months Procedures Est adult Marium Elam V, MD [address] [place] [address] [address] [address] Referral ID Status Reason Start Date Expiration Date Visits Requested Visits Authorized [id number] Authorized Financial Clearance Required - OON Payor Patient Cleared INN/SMCP Payor Auth Obtained 1 09/23/2022 4 4 Reason Comments right foot pain Right foot pain x 1 week-cannot recall an injury Reason Comments Results Care Teams (unrecognized sec tion and content) Rn Anesthesiology Relationship Specialty Start Date End Date Yonatan Thompson MD [address] [address] PCP - General Family Practice 04/15/21 Tyrese Quiñonez [address] [place] [address] Physician Ophthalmology 02/24/21 Rn Anesthesiology Relationship Specialty Start Date End Date Yonatan Thompson MD [address] [facility][1] [address] [place] [address] PCP - General Family Medicine 04/15/21 Tyrese Quiñonez [address] [place] [address] Physician Ophthalmology 02/24/21 Rn Anesthesiology Relationship Specialty Start Date End Date Yonatan Thompson MD [address] [place] [address] [address] [place] [address] PCP - General Family Medicine 04/15/21 Tyrese Quiñonez [facility] [place] [address] Physician Ophthalmology 02/24/21 Rn Anesthesiology Relationship Specialty Start Date End Date Yonatan Thompson MD [address] [facility][1] [address] [place] [address] PCP - General Family Medicine 04/15/21 Tyrese Quiñonez [address] [place] [address] Physician Ophthalmology 02/24/21 Rn Anesthesiology Relationship Specialty Start Date End Date Yonatan Thompson MD [address] [place] [address] [address] [place] [address] PCP - General Family Medicine 04/15/21 Tyrese Quiñonez MD [facility] [place] [address] Physician Ophthalmology 02/24/21 INFORMATION SOURCE (unrecogn ized section and content) DATE CREATED AUTHOR 05/20/2023 [facility] FOR RECORDS PERTAINING TO PATIENTS WHO ARE [...] BE BASED ON THE PRIMARY CLINICAL RECORDS. [facility] [employer] [facility]. provides no warranty or guarantee of the accuracy or completeness of information in this document.
[2024-09-03 21:30] LABS: Reflex Troponin-HS? (from REC) Y
[2024-09-03 21:56] LABS: Troponin-I HS 5 pg/mL (3.0-54.0)
== END 2024-09-03 22:57 | disposition home or self-care (01) ==
PROVIDERS: Emergency Provider Emergency Medicine; PCP Family Medicine; Visit Provider Emergency Medicine
DX: R07.9 Chest pain, unspecified (principal); R42 Dizziness and giddiness; E86.0 Dehydration; M50.30 Other cervical disc degeneration, unspecified cervical region; E03.9 Hypothyroidism, unspecified; E78.5 Hyperlipidemia, unspecified; E66.9 Obesity, unspecified; Z79.890 Hormone replacement therapy; Z79.899 Other long term (current) drug therapy; Z87.891 Personal history of nicotine dependence
CPT/HCPCS: 71045; 80048; 83880; 84484; 85025; 85379; 93005; 96360; 99285; J7030; A4216

== ENCOUNTER → 2024-09-10 | Outpatient (CLI) | payer MEDICARE, SELFPAY ==
[2024-09-10 18:48] LABS: Anion Gap 4 (5-15); BUN 14 mg/dL (7-18); Calcium,Total 8.7 mg/dL (8.5-10.1); Chloride 106 mmol/L (98-107); Creatinine, Serum 0.78 mg/dL (0.55-1.02); EST Glomerular Filtration Rate 79 mL/min (>60); Est Glom Filt Rate - Afr Amer 95 mL/min (>60); Glucose 91 mg/dL (74-106); Potassium 3.8 mmol/L (3.5-5.1); Sodium Level 138 mmol/L (136-145); T4 Free Direct 0.95 ng/dL (0.76-1.46)
== END | disposition home or self-care (01) ==
LOC: MFPLAB 14:58
PROVIDERS: PCP Family Medicine; Referring Provider Family Medicine; Visit Provider Family Medicine
DX: E03.9 Hypothyroidism, unspecified (principal); R07.89 Other chest pain
CPT/HCPCS: 36415; 80048; 84439; 84443; 84481

== ENCOUNTER → 2024-12-17 | Outpatient (CLI) | payer MEDICARE, SELFPAY ==
[2024-12-17 13:06] LABS: ALB/GLOB Ratio 1.1 RATIO (0.9-2.4); AST(SGOT) 13 U/L (15-37); Alanine Aminotransfer ALT/SGPT 25 U/L (13-56); Albumin, Serum 3.6 g/dL (3.2-5.0); Alkaline Phosphatase 69 U/L (45-117); Anion Gap 7 (5-15); BUN 19 mg/dL (7-18); BUN/Creat Ratio 25.5 RATIO (10-20); Calcium,Total 8.8 mg/dL (8.5-10.1); Chloride 108 mmol/L (98-107); Creatinine, Serum 0.74 mg/dL (0.55-1.02); EST Glomerular Filtration Rate 82 mL/min (>60); Est Glom Filt Rate - Afr Amer 100 mL/min (>60); Free T3 2.5 pg/mL (2.18-3.98); Globulin 3.4 g/dL (2.2-4.2); Glucose 118 mg/dL (74-106); Sodium Level 141 mmol/L (136-145); T4 Free Direct 1.13 ng/dL (0.76-1.46)
== END | disposition home or self-care (01) ==
LOC: MFPLAB 08:54
PROVIDERS: PCP Family Medicine; Referring Provider Family Medicine; Visit Provider Family Medicine
DX: E03.9 Hypothyroidism, unspecified (principal); E78.5 Hyperlipidemia, unspecified
CPT/HCPCS: 36415; 80053; 84439; 84443; 84481

== ENCOUNTER → 2025-03-22 | Outpatient (CLI) | payer MEDICARE, SELFPAY ==
[2025-03-22 11:01] LABS: ALB/GLOB Ratio 1.8 RATIO (0.9-2.4); AST(SGOT) 21 U/L (<=31); Alanine Aminotransfer ALT/SGPT 19 U/L (<=34); Albumin, Serum 4.4 g/dL (3.4-4.8); Alkaline Phosphatase 66 U/L (35-104); Anion Gap 10 (5-15); BUN 19 mg/dL (4-19); BUN/Creat Ratio 22.1 RATIO (10-20); Calcium,Total 9.4 mg/dL (7.6-11.0); Carbon Dioxide 25.8 mmol/L (21.0-32.0); Chloride 103 mmol/L (98-108); Cholesterol 199 mg/dL (<=200); Creatinine, Serum 0.86 mg/dL (0.70-1.20); EST Glomerular Filtration Rate 74 (>60); Free T3 2.1 pg/mL (2.18-3.98); Globulin 2.4 g/dL (2.2-4.2); Glucose 120 mg/dL (70-99); High Density Lipoprotein 61 mg/dL; Low Density Lipoprotein Calc. 118 mg/dL; Potassium 4.2 mmol/L (3.3-5.1); Protein, Total 6.9 g/dL (5.9-8.4); Sodium Level 138 mmol/L (133-145); Total Bilirubin 0.44 mg/dL (0.00-1.30); Triglycerides 98 mg/dL; Very Low Density Lipoprotein 20 mg/dL (5-40); cholesterol:hdl ratio screen 3.26
== END | disposition home or self-care (01) ==
LOC: MFPLAB 09:24
PROVIDERS: PCP Family Medicine; Referring Provider Family Medicine; Visit Provider Family Medicine
DX: E03.9 Hypothyroidism, unspecified (principal); E78.5 Hyperlipidemia, unspecified
CPT/HCPCS: 36415; 80053; 80061; 84439; 84443; 84481

== ENCOUNTER → 2025-03-29 | Outpatient (CLI) | payer MEDICARE, SELFPAY ==
[2025-03-29 13:00] LABS: Hemoglobin A1c 5.8 % (<=5.6)
== END | disposition home or self-care (01) ==
LOC: MFPLAB 10:07
PROVIDERS: PCP Family Medicine; Referring Provider Family Medicine; Visit Provider Family Medicine
DX: R73.09 Other abnormal glucose (principal)
CPT/HCPCS: 36415; 83036

== ENCOUNTER → 2025-05-20 | Outpatient (CLI) | payer MEDICARE, SELFPAY | END | disposition home or self-care (01) | LOC: LAB 15:43 | PROVIDERS: PCP Family Medicine; Referring Provider Internal Medicine Endocrinology, Diabetes & Metabolism; Visit Provider Internal Medicine Endocrinology, Diabetes & Metabolism | DX: R61 Generalized hyperhidrosis (principal) ==

== ENCOUNTER → 2025-05-22 | Outpatient (CLI) | payer MEDICARE, SELFPAY ==
[2025-05-22 12:48] LABS: 24HR. Urine Creatinine 1524.0 mg/24 hr (740.0-1540.0)
[2025-05-25 16:08] LABS: Cortisol, Free 24Ur 48 ug/24 hr (6-42)
== END | disposition home or self-care (01) ==
LOC: LABSPEC 09:12
PROVIDERS: PCP Family Medicine; Referring Provider Internal Medicine Endocrinology, Diabetes & Metabolism; Visit Provider Internal Medicine Endocrinology, Diabetes & Metabolism
DX: R61 Generalized hyperhidrosis (principal)
CPT/HCPCS: 81050; 82530; 82570

== ENCOUNTER → 2025-05-24 | Outpatient (CLI) | payer MEDICARE, SELFPAY ==
--- NOTE | 2025-05-24 14:27 | BI_ITS ---
EXAM: SCRN MAMM (CAD)W/REJI BILAT DATE: 05/24/2025 CLINICAL HISTORY: F, Age 69 y/o , SCREENING TECHNIQUE: SCRN MAMM (CAD)W/REJI BILAT COMPARISON: Prior exam(s) dated 07/19/2023, 10/06/2021, 11/27/2018. FINDINGS: TISSUE DENSITY: There are scattered areas of fibroglandular density. Bilateral Breast Mammographic Findings: No significant masses, calcifications or other abnormalities are identified. BI/SCRN MAMM (CAD)W/ERJI BILAT IMPRESSION: There is no mammographic evidence of malignancy. OVERALL FINAL ASSESSMENT BI-RADS 1: NEGATIVE. RECOMMENDATION: Routine annual follow-up in 1 Year A letter with findings and recommendations will be mailed to the patient. Reading Location: [id number]
== END | disposition home or self-care (01) ==
LOC: OPBI 14:25
PROVIDERS: PCP Family Medicine; Referring Provider Family Medicine; Visit Provider Family Medicine
DX: Z12.31 Encounter for screening mammogram for malignant neoplasm of breast (principal)
CPT/HCPCS: 77063; 77067

== ENCOUNTER → 2025-05-29 | Outpatient (CLI) | payer MEDICARE, SELFPAY ==
--- OUTSIDE RECORDS SUMMARY | 2025-05-29 06:42 | XMS RPT_ITS | CCD ---
Author Organization [facility] Care Team Providers Care Leveler Helper Name Role Phone Dossi Valentina ZELAYA Unavailable Scooby Quiñonez Unavailable Yonatan Thompson MD Primary Care Provider Dr. Yonatan Thompson Primary Care Provider Dr. Yonatan Thompson Referring Provider 1([facility])[phone] Valentina Flores Attending Provider 1([facility]) 25 Dr. Yonatan Thompson Primary Care Provider 1([facility])[phone] Dr. Yonatan Thompson Referring Provider 1([facility])[phone] Valentina kennedy Attending Provider 1([facility]) 25 Dr. Abisai Hawk Attending Provider 1([facility])[phone] Dr. [place] Carlisle Attending Provider 1([facility])[phone] Yonatan Thompson Primary Care Provider 1([facility])[phone] Dr. Yonatan Thompson Referring Provider 1([facility])[phone] Valentina kennedy Attending Provider 1([facility]) 25 Dr. Rajendra Lindsey Attending Provider [phone] Yonatan Thompson Primary Care Provider Dr. Yonatan Thompson Referring Provider 1([facility])[phone] Valentina Flores Attending Provider 1([facility]) 25 Dr. Rajendra Lindsey Referring Provider [phone] Yonatan Thompson Primary Care Provider Dr. Yonatan Thompson Referring Provider 1([facility])[phone] Valentina kennedy Attending Provider [phone] Scooby Quiñonez Unavailable Sherwin GARCIA, Yonatan Sainz Primary Care Provider SHERWIN, YONATAN Sainz Primary Care Unavailable SCOOBY HENSON Referring Unavailable YONATAN THOMPSON Primary Care Unavailable Sherwin, Dr. Tam Primary Care Provider Dosmarcia, Dr. Montgomery Attending Provider [phone] Dossi, Dr. Montgomery Referring Provider [phone] Orestes, Dr. Boyle Attending Provider Thompson, Dr. Tam Referring Provider [facility], Dr. Torres Attending Provider Thompson, Dr. Tam Primary Care Provider Dossi, Dr. Montgomery Attending Provider 1([facility]) 25 Dossi, Dr. Montgomery Referring Provider 1([facility]) 25 Thompson, Dr. Tam Primary Care Provider Dossi, Dr. Montgomery Attending Provider [phone] Dossi, Dr. Montgomery Referring Provider [phone] Sherwin, Dr. Tma Referring Provider Olamide GARCIA, Scooby Her Unavailable Sherwin GARCIA, Yonatan Sainz Primary Care Provider Sherwin GARCIA, Dr. Tam Primary Care Provider Sherwin GARCIA, Dr. Tam Attending Provider Sherwin GARCIA, Dr. Tam Referring Provider Dossi DC, Dr. Montgomery Attending Provider Dossi DC, Dr. Montgomery Referring Provider Sherwin GARCIA, Dr. Tam Primary Care Provider Sherwin GARCIA, Dr. Tam Referring Provider Sherwin GARCIA, Dr. Tam Attending Provider JACIEL GAVIN DO Attending Unavailable Sherwin GARCIA, Dr. Tam Primary Care Provider Dossi DC, Dr. Montgomery Attending Provider Dossi DC, Dr. Montgomery Referring [facility], Dr. Grissom Attending [facility], Dr. Grissom Referring Provider Thompson, Yonatan Primary Care Unavailable Wietecha, Jaciel Referring Unavailable Wietecha, Jaciel Attending Unavailable LauraGaston Attending Unavailable Thompson, Yonatan Primary Care Unavailable Dossi, Valentina Referring Unavailable Thompson, Yonatan Primary Care Unavailable Dossi, Valentina Attending Unavailable Dossi, Valentina Referring Unavailable Thompson, Yonatan Primary Care Unavailable Dossi, Valentina Attending Unavailable Thompson, Yonatan Attending Unavailable Thompson, Yonatan Referring Unavailable Thompson, Yonatan Primary Care Unavailable Thompson, Yonatan Attending Unavailable Thompson, Yonatan Primary Care Unavailable Thompson, Yonatan Referring Unavailable Thompson, Yonatan Attending Unavailable Thompson, Yonatan Primary Care Unavailable Thompson, Yonatan Referring Unavailable Thompson, Yonatan Attending Unavailable Thompson, Yonatan Primary Care Unavailable Thompson, Yonatan Referring Unavailable Dossi, Valentina Attending Unavailable Dossi, Valentina Referring Unavailable Thompson, Yonatna Primary Care Unavailable Thompson, Yonatan Primary Care Unavailable Wietecha, Jaciel Referring Unavailable Wietecha, Jaciel Attending Unavailable Thompson, Yonatan Attending Unavailable Thompson, Yonatan Primary Care Unavailable Thompson, Yonatan Referring Unavailable Thompson, Yonatan Attending Unavailable Thompson, Yonatan Referring Unavailable Thompson, Yonatan Primary Care Unavailable Dossi, Valentina Attending Unavailable Thompson, Yonatan Primary Care Unavailable Thompson, Yonatan Referring Unavailable Dossi, Valentina Attending Unavailable Thompson, Yonatan Primary Care Unavailable Thompson, Yonatan Referring Unavailable Dossi, Valentina Referring Unavailable Thompson, Yonatan Primary Care Unavailable Dossi, Valentina Attending Unavailable Dossi, Valentina Referring Unavailable Thompson, Yonatan Primary Care Unavailable Dossi, Valentina Attending Unavailable Thompson, Yonatan Referring Unavailable Dossi, Valentina Attending Unavailable Thompson, Yonatan Primary Care Unavailable Dossi, Valentina Attending Unavailable Thompson, Yonatan Primary Care Unavailable Thompson, Yonatan Referring Unavailable Dossi, Valentina Referring Unavailable Dossi, Valentina Attending Unavailable Thompson, Yonatan Primary Care Unavailable Dossi, Valentina Referring Unavailable Dossi, Valentina Attending Unavailable Thompson, Yonatan Primary Care Unavailable Thompson, Yonatan Referring Unavailable Thompson, Yonatan Primary Care Unavailable Dossi, Valentina Attending Unavailable Yonatan Thompson Attending Unavailable Yonatan Thompson Primary Care Unavailable Yonatan Thompson Referring Unavailable Allergies Allergy Classification Reported Allergen(s) Allergy Type Date of Onset Reaction(s) Facility (4 sources) penicillin v drug allergy 7 Rash [facility] Work Phone: (6 sources) Adhesive agent; Translations: [ADHESIVE] Propensity to adverse reactions 9 [facility] (3 sources) Penicillins; Translations: [PENICILLINS] Propensity to adverse reactions 9 itching [facility] (6 sources) rivaroxaban; Translations: [RIVAROXABAN] Drug Allergy 1 Unknown [facility] (6 sources) Seasonal allergy; Translations: [SEASONAL ALLERGIES] Allergy to substance 2 Other: See Comments [facility] (13 sources) Penicillins Allergy to substance 2 itching [facility] Comment on above: Itching (4 sources) Penicillins Propensity to adverse reactions 9 [facility] (8 sources) Seasonal Allergies: Uncoded; Translations: [Seasonal Allergies: Uncoded] Allergy to substance 4 Other [facility] Comment on above: Sneezing (1 source) Penicillins Drug allergy (disorder) 5 [facility] Rep[facility] Medications Current Medications Medication Drug Class(es) Dates Sig (Normalized) Sig (Original) Antiarthritic Combination No.2 (Glucosamine-Chondro itin) 900 mg tablet (13 sources) Start: 06-17-2022 take 1 tablet by mouth once daily Antiarthritic Combination No.2 (Glucosamine-Chondr oitin) 900 mg tablet Active 900 mg PO DAILY June 17, 2022 12:00am arthritis Start: 06-17-2022 take 1 tablet by mike th once daily Antiarthritic Combination No.2 (Glucosamine-Chondroitin) 900 mg tablet Active 900 mg PO DAILY June 17, 2022 12:00am Start: 06-17-2022 Antiarthritic Combination No.2 (Glucosamine-Chondroitin) 900 mg tablet Active MG PO June 17, 2022 12:00am Start: 06-17-2022 Antiarthritic Combination No.2 (Glucosamine-Chondroitin) 900 mg tablet Active MG PO June 16, 2022 11:00pm atorvastatin 10 mg oral tablet (9 sources) HMG-CoA Reductase Inhibitor Start: 07-11-2023 take 1 tablet by mouth once daily Atorvastatin 10 mg tablet Active 10 mg PO DAILY July 11, 2023 12:00am benoxinate hydrochloride 4 mg/ml / fluorescein sodium 2.5 mg/ml ophthalmic solution (1 source) Diagnostic Dye Start: 04-09-2022 End: 04-10-2022 fluorescein-benoxina te 0.25-0.4 % 1 Drop (FLURESS) cholecalciferol 0.075 mg oral tablet (20 sources) Vitamin D Start: 07-11-2023 take 1 tablet by mouth once daily Cholecalciferol (Vitamin D3) 75 mcg (3,000 unit) tablet Active 50 ug PO DAILY July 11, 2023 8:25am Start: 06-17-2022 End: 07-11-2023 take 1 tablet by mouth once daily Cholecalciferol (Vitamin D3) 75 mcg (3,000 unit) tablet Discontinued 75 ug PO DAILY June 17, 2022 12:00am July 11, 2023 8:31am cinnamon bark 500 mg oral capsule (13 sources) Start: 06-17-2022 take 1 capsule by mouth once daily Cinnamon Bark (Cinnamon) 500 mg capsule Active 500 mg PO DAILY June 17, 2022 12:00am COQ10, LIPOSOMAL UBIQUINOL, ORAL (5 sources) COQ10, [...] in the ri ght eye twice daily. [place] 1-Fue-Mxs-Fish Oil (13 sources) Start: 06-17-2022 [place] 3-Cvy-Owk-Fish Oil (Fish Oil) 300-1,000 mg capsule Active 1 NMA PO DAILY June 17, 2022 12:00am Start: 06-17-2022 take 300-1000 mg by mouth once daily [place] 0-Out-Iqx-Fish Oil (Fish Oil) 300-1,000 mg capsule Active 1 CAP PO DAILY June 17, 2022 12:00am Start: 06-17-2022 take 300-1000 mg by mouth once daily [place] 9-Jzi-Mwl-Fish Oil (Fish Oil) 300-1,000 mg capsule Active 1 CAP PO DAILY June 16, 2022 11:00pm dorzolamide 20 mg/ml / timolol 5 mg/ml [...] d aily. escitalopram 20 mg oral tablet (20 sources) Serotonin Reuptake Inhibitor Start: 08-30-2023 Escitalopram Oxalate Active MG PO August 29, 2023 11:00pm Start: 02-05-2021 take 1 tablet by mike th once daily Escitalopram Oxalate 20 mg tablet Active 20 mg PO DAILY August 30, 2023 12:00am Start: 12-12-2017 escitalopram o xalate (LEXAPRO) 10 mg tablet Escitalopram Oxalate Active 10 MG daily December 12, 2017 8:45am 12/12/2017 Active Start: 12-12-2017 End: 08-30-2023 take 1 tablet by mouth once daily Escitalopram Oxalate (Lexapro) 10 mg tablet Discontinued 10 mg PO daily December 12, 2017 1:00am August 30, 2023 12:26pm take 1 tablet by mike th once daily in the evening LEXAPRO 20 MG TABS One tablet by mouth daily in the p.m. ESCITALOPRAM OXALATE [id number] Valentina Flores DC Comment on above: Escitalopram Oxalate Active 10 MG daily December 12, 2017 8:45am Flaxseed Oil (7 sources) Start: 06-17-2022 Flaxseed Oil Active 5 ML MC TWICE A DAY June 17, 2022 12:00am Start: 06-17-2022 Flaxseed Oil A ctive 5 ML MC TWICE A DAY June 16, 2022 11:00pm glucosamine/msm/csa/amelia/hrb1 15 (NLZZQLHSQU-HGEIC-DHU-AMELIA-115HC ORAL) (5 sources) glucosamine/msm/ csa/amelia/ujk887 (WLJHSBJLXL-XGBKL-OYL-AMELIA-115HC ORAL) Take by mouth once daily. Active glucosamine/msm/ csa/amelia/pyc615 (JPTFDXLMHQ-JFQXY-GOV-AMELIA-115HC ORAL) Take by mouth once daily. 0 Active Comment on above: Take by mouth once d aily. Hydrocortisone 2.5%/Lidocaine 5% Suppository (Cmpd) (3 sources) Start: 07-11-2023 Hydrocortisone 2.5%/Lidocaine 5% Suppository (Cmpd) Active 0 .Route July 10, 2023 11:00pm insert 1 suppository twice daily. Start: 07-11-2023 Hydrocortisone 2.5%/Lidocaine 5% Suppository (Cmpd) Active 0 .Route July 11, 2023 12:00am insert 1 suppository twice daily. Hydrocortisone 2.5%/Lidocain e 5% Suppository (Cmpd) suppository (6 sources) Start: 07-11-2023 Hydrocortisone 2.5%/Lidocaine 5% Suppository (Cmpd) suppository Active 0 .Route 30 July 11, 2023 12:00am insert 1 suppository twice daily. Start: 07-11-2023 Hydrocortisone 2.5%/Lidocaine 5% Suppository (Cmpd) suppository Active 0 .Route 30 July 11, 2023 12:00am insert 1 suppository twice daily. ketorolac tromethamine 5 mg/ml ophthalmic solution (5 sources) Nonsteroidal Anti-inflammatory Drug, Cyclooxygenase Inhibitor Start: 04-28-2021 take 1 drop(s) into the [...] daily. levothyroxine sodium 0.025 mg oral capsule (20 sources) l-Thyroxine Start: 07-11-2023 Levothyroxine 25 mcg capsule Active 137 ug PO DAILY 0 July 11, 2023 8:26am Start: 12-12-2017 levothyroxine 25 mcg cap levothyroxine 25 mcg capsule Active December 12, 2017 8:45am 12/12/2017 Active Start: 12-12-2017 End: 07-11-2023 Levothyroxine 25 mcg capsule Discontinued PO 0 December 12, 2017 1:00am July 11, 2023 8:31am Start: 08-12-2005 SYNTHROID 112 MCG ORAL TAB Take by mouth. 0 08/12/2005 Active take 1 tablet by mike th once daily in the morning LEVOTHYROXINE SODIUM 125 MCG TABS One tablet by mouth daily in the a.m. LEVOTHYROXINE SODIUM [id number] Valentina Flores DC Comment on above: Take by mouth. levothyroxine 25 mcg capsule Active December 12, 2017 8:45am loratadine 10 mg oral tablet (14 sources) Start: 05-26-20 take 1 tablet by mouth once daily Loratadine (Claritin) 10 mg tablet Active 10 mg PO DAILY July 11, 2023 12:00am Comment on above: Take one(1) tablet d aily as needed for allergy symptoms. magnesium gluconate 550 mg oral tablet (13 sources) Start: 06-17-20 take 1 tablet by mouth once daily Magnesium 30 mg tablet Active 30 mg PO DAILY June 17, 2022 12:00am Multivitamin preparation (7 sources) Start: 06-17-20 take 1 tablet by mouth once daily Multivitamin Active 1 TABLET PO DAILY June 17, 2022 12:00am Start: 06-17-2022 take 1 tablet by mike th once daily Multivitamin Active 1 TABLET PO DAILY June 16, 2022 11:00pm Multivitamin tablet (6 sources) Start: 06-17-2022 Multivitamin t ablet Active 1 {tbl} PO DAILY June 17, 2022 12:00am multivitamins(DAILY VITAMIN TAB) (5 sources) Start: 05-26-2009 multivitamins( DAILY VITAMIN TAB) Take by mouth. 0 05/26/2009 Active Comment on above: Take by mouth. Wtslv-4-BFD-EPA-Fish Oil 300-1,000 mg cap (4 sources) Ghcov-4-TZT-EPA- Fish Oil 300-1,000 mg cap Take by mouth once daily. Active Mqcat-2-FFR-EPA- Fish Oil 300-1,000 mg cap Take by [...] tablet (5 sources) HMG-CoA Reductase Inhibitor Start: 021 take 1 tablet by mouth once daily rosuvastatin (CRESTOR) 5 mg tablet Take 5 mg by mouth once daily. 02/12/2021 Active Comment on above: Take 5 mg by mouth o nce daily. traZODone hydrochloride 50 mg oral tablet (9 sources) Serotonin Reuptake Inhibitor Start: 023 take 1 tablet by mouth at bedtime as needed Trazodone 50 mg tablet Active 50 mg PO AT BEDTIME as needed for insomnia July 11, 2023 12:00am tropicamide 10 mg/ml ophthalmic solution (1 source) Anticholinergic Start: End: tropicamide 1 % 1 Drop (MYDRIACYL) ubidecarenone 100 mg oral capsule (13 sources) Start: Coenzyme Q10 (Coq-10) 100 mg capsule Active 100 mg PO DAILY June 17, 2022 12:00am Completed/Discontinued Medications Medication Drug Class(es) Dates Sig (Normalized) Sig (Original) benzonatate 200 mg oral capsule (13 sources) Non-narcotic Antitussive Start: 05-21-2024 End: 09-03-2024 take 1 capsule by mouth three times daily as needed for cough Benzonatate 200 mg capsule Discontinued 200 mg PO THREE TIMES A DAY as needed for cough 20 0 May 21, 2024 12:00am September 03, 2024 7:55pm Start: 08-30-2023 End: 03-19-2024 take 1 capsule by mouth three times daily as needed for cough Benzonatate 200 mg capsule Discontinued 200 mg PO THREE TIMES A DAY as needed for cough 20 0 August 30, 2023 12:00am March 19, 2024 1:43pm Flaxseed Oil oil (6 sources) Start: 06-17-2022 End: 09-03-2024 Flaxseed Oil oil Discontinued 5 mL MC TWICE A DAY June 17, 2022 12:00am September 03, 2024 7:56pm hydrocortisone 25 mg/ml topical cream (9 sources) Corticosteroid Start: 07-11-2023 End: 09-03-2024 Hydrocortisone (Proctosol Hc) 2.5 % cream with perineal applicator Discontinued 1 NMA RC 1 to 2 times per day July 11, 2023 12:00am September 03, 2024 7:56pm levoFLOXacin 500 mg oral tablet (13 sources) Quinolone Antimicrobial Start: 08-30-2023 End: 09-03-2024 take 1 tablet by mouth once daily Levofloxacin 500 mg tablet Discontinued 500 mg PO DAILY 7 0 May 21, 2024 12:00am September 03, 2024 7:57pm Kxtak-8-OYJ-EPA-Fish Oil (FISH OIL) 300-1,000 mg cap (1 source) Ooouc-2-MUD-EPA- Fis h Oil (FISH OIL) 300-1,000 mg cap Take by mouth once daily. 0 Active Comment on above: Take by mouth once d aily. saccharomyces boulardii 250 mg oral capsule (13 sources) Start: 06-17-2022 End: 07-11-2023 take 1 capsule by mouth twice daily Saccharomyces Boulardii (Daily Probiotic (S. Boulardii)) 250 mg capsule Discontinued 250 mg PO TWICE A DAY June 17, 2022 12:00am July 11, 2023 8:30am Turmeric extract (13 sources) Start: 06-17-2022 End: 07-11-2023 Turmeric 400 mg capsule Discontinued mg PO June 17, 2022 12:00am July 11, 2023 8:30am Start: 06-17-2022 End: 07-11-2023 Turmeric Discontinued MG PO June 16, 2022 11:00pm July 11, 2023 7:30am Start: 06-17-2022 End: 07-11-2023 Turmeric Discontinued MG PO June 17, 2022 12:00am July 11, 2023 8:30am Start: 06-17-2022 Turmeric Activ e MG PO June 17, 2022 12:00am Start: 06-17-2022 Turmeric Activ e MG PO June 16, 2022 11:00pm zinc acetate 25 mg oral capsule (13 sources) Start: 06-17-2022 End: 07-11-2023 take 1 capsule by mouth once daily Zinc Acetate (Galzin) 25 mg (zinc) capsule Discontinued 25 mg PO DAILY June 17, 2022 12:00am July 11, 2023 8:31am Problems Active Problems Problem Classification Problem Date Documented Da te Episodic/Chronic Anxiety disorders (13 sources) Anxiety; Translations: [Anxiety disorder, unspecified] 06-17-2022 Chronic Cataract (1 source) Pseudophakia; Translations: [Presence of intraocular lens] Chronic Complication of device; implant or graft (1 source) Dkokmnf-gtcqcou-klaj coma syndrome of right eye; Translations: [Other mechanical complication of other ocular prosthetic devices, implants and grafts, initial encounter] Episodic Diabetes mellitus without complication (1 source) Other abnormal glucose; Translations: [Other abnormal glucose] Onset: 04-03-2025 Episodic Hemorrhoids (2 sources) Unspecified hemorrhoids; Translations: [Unspecified hemorrhoids without mention of complication] 07-11-2023 Episodic Mood disorders (13 sources) Depressive disorder; Translations: [Depression] 06-17-2022 Chronic Nonmalignant breast conditions (5 sources) Fibrocystic disease of breast; Translations: [Diffuse cystic mastopathy of unspecified breast] Onset: 07-16-2010 07-16-2010 Chronic Nutritional deficiencies (1 source) Vitamin D deficiency, unspecified; Translations: [Vitamin D deficiency, unspecified] Onset: 04-29-2025 Chronic Other bone disease and musculoskeletal deformities (20 sources) Segmental and somatic dysfunction; Translations: [Segmental and somatic dysfunction of cervical region] Onset: 12-13-2016 12-15-2016 Episodic Other bone disease and musculoskeletal deformities (20 sources) Segmental and somatic dysfunction of cervical region; Translations: [Nonallopathic lesions, cervical region] Onset: 05-06-2025 Episodic Other bone disease and musculoskeletal deformities (20 sources) Segmental and somatic dysfunction of lumbar region; Translations: [Nonallopathic lesions, lumbar region] Onset: 05-06-2025 Episodic Other bone disease and musculoskeletal deformities (20 sources) Segmental and somatic dysfunction of pelvic region; Translations: [Nonallopathic lesions, pelvic region] Onset: 05-06-2025 Episodic Other bone disease and musculoskeletal deformities (20 sources) Segmental and somatic dysfunction of thoracic region; Translations: [Nonallopathic lesions, thoracic region] Onset: 05-06-2025 Episodic Other connective tissue disease (2 sources) Pain in right foot; Translations: [Pain in right foot] Episodic Other connective tissue disease (1 source) Pain in right foot; Translations: [Foot pain, right] Onset: 05-18-2023 Episodic Other nervous system disorders (1 source) Anesthesia of skin; Translations: [Anesthesia of skin] Onset: 05-23-2025 Episodic Other non-traumatic joint disorders (3 sources) Acute ankle pain; Translations: [Pain in right ankle and joints of right foot] Episodic Other non-traumatic joint disorders (1 source) Pain in right ankle and joints of right foot; Translations: [Acute right ankle pain] Onset: 05-18-2023 Episodic Other screening for suspected conditions (not mental disorders or infectious disease) (1 source) Encounter for screening mammogram for malignant neoplasm of breast; Translations: [Encounter for screening mammogram for malignant neoplasm of breast] Onset: 05-24-2025 Episodic Other skin disorders (3 sources) Generalized hyperhidrosis; Translations: [Generalized hyperhidrosis] Onset: 04-29-2025 Episodic Other upper respiratory infections (7 sources) Acute sinusitis; Translations: [Acute sinusitis, unspecified] 08-30-2023 Episodic Retinal detachments; defects; vascular occlusion; and retinopathy (1 source) Cystoid macular edema of right retina; 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, right eye] Chronic Spondylosis; intervertebral disc disorders; other back problems (20 sources) Degeneration of cervical intervertebral disc; Translations: [Other cervical disc degeneration, unspecified cervical region] Onset: 05-06-2025 Chronic Spondylosis; intervertebral disc disorders; other back problems (20 sources) Cervical disc disorder with radiculopathy; Translations: [Cervical disc disorder at C5-C6 level with radiculopathy] Onset: 03-13-2025 Episodic Spondylosis; intervertebral disc disorders; other back problems (4 sources) Cervical disc disorder at C5-C6 level with radiculopathy; Translations: [Cervical disc disorder at C5-C6 level with radiculopathy] Onset: 12-13-2016 12-15-2016 Thyroid disorders (15 sources) Hypothyroidism; Translations: [Hypothyroidism, unspecified] Onset: 03-27-2025 06-17-2022 Chronic Past or Other Problems Problem Classification Problem Date Documented Da te Episodic/Chronic Nonspecific chest pain (1 source) Chest pain, unspecified; Translations: [Chest pain, unspecified] Onset: 02-11-2025 Episodic Other non-traumatic joint disorders (1 source) Pain in left shoulder; Translations: [Pain in left shoulder] Onset: 07-22-2024 Episodic Results Test Name Value Interpretation Reference Range Facility SCRN MAMM (CAD)W/REJI BILATo n 05-24-2025 SCRN MAMM (CAD)W/REJI BILAT [facility] [address] [place], [place] [id number] SCRN MAMM (CAD)W/REJI BILAT MR#: [id number] Acct: [id number] Name: RACHELLE CHAMPION (LYNN) Rep #: [id number] : 1955 F 69 From: Jeaneth Thakkar MD PCP: Dr. Yonatan Thompson MD Status: REG CLI Study: SCRN MAMM (CAD)W/REJI BILAT Date of Exam: 05/14 12/08 Exam# [id number] Ordering Dr: Yonatan Thompson MD EXAM: SCRN MAMM (CAD)W/REJI BILAT DATE: 05/24/2025 CLINICAL HISTORY: F, Age 69 y/o , SCREENING TECHNIQUE: SCRN MAMM (CAD)W/REJI BILAT COMPARISON: Prior exam(s) dated 07/19/2023, 10/06/2021, 11/27/2018. FINDINGS: TISSUE DENSITY: There are scattered areas of fibroglandular density. Bilateral Breast Mammographic Findings: No significant masses, calcifications or other abnormalities are identified. BI/SCRN MAMM (CAD)W/REJI BILAT IMPRESSION: There is no mammographic evidence of malignancy. OVERALL FINAL ASSESSMENT BI-RADS 1: NEGATIVE. RECOMMENDATION: Routine annual follow-up in 1 Year A letter with findings and recommendations will be mailed to the patient. Reading Location: [facility] CC: Dr. Yonatan Thompson MD Belt Splicer: Signed Normal [facility] 24 HR Urine Creatinineon RANDOM UR TV 4000.0 ML Normal [facility] Comment on above: Performed By: #### L 502.000 #### [facility] [address] [place], [address] UR.CREAT/24hr 1524.0 mg/24 hr Normal 740.0-1540.0 [facility] Comment on above: Performed By: #### L 502.000 #### [facility] [address] [place], [address] URINE CREAT 38.10 mg/dL Normal 28.00-217.00 [facility] Comment on above: Performed By: #### L 502.000 #### [facility] [address] [place], [address] 24 hour urine free cortisol measurement (mass/time)Ordered By: Jaciel Gavin on 05-22-2025 Cortisol Free (24H U) [Mass/Time] 48 ug/24 hr High 6-42 [facility] Comment on above: Performed at: [address] [id number] Director: Bennie Gilmore MD, Phone: [phone] Quantitative urine free karin isol measurement (mass/volume)Ordered By: Jaciel Gavin on 05-22-2025 Cortisol Free (U) [Mass/Vol] 12 ug/L Undefined [facility] Total urine volume measureme ntOrdered By: Jaciel Gavin on 05-22-2025 Specimen volume (U) 4000.0 ML [facility] Urine creatinine measurement (mass/volume)Ordered By: Jaciel Gavin on 05-22-2025 Creatinine (U) [Mass/Vol] 38.10 mg/dL 28.00-217.00 [facility] Chiropractic Reporton 2024 Chiropractic Report [facility] [place] [address] OFFICE VISIT Date of Service: 05/06/25 MR#: [id number] Acct: [id number] Name: RACHELLE CHAMPION (LYNN) Rep #: [id number] : 1955 Provider: GARCIA Roy Age/Sex: 69/F Location: [facility] Status: Signed Intake Vital Signs 02/11/25 14:52 Height 5 ft 8 in Intake Visit Reasons: dry needling/adjustment Chief Complaint: neck, upper and left low back pain Is patient in pain?: Yes (neck and low back/hip) Pain scale (1-10): 4 Allergies Penicillins Allergy (Mild, Verified 05/06/25 13:01) itching Seasonal Allergies: Uncoded Allergy (Verified 05/06/25 13:01) Other Medications ???Medication ???Instructions ???Recorded ???Confirmed ???Type antiarthritic combination no.2 900 900 mg PO DAILY arthritis 05/06/25 History mg tablet (glucosamine-chondro itin) cinnamon bark 500 mg capsule 500 mg PO DAILY 06/17/22 05/06/25 History (Cinnamon) coenzyme Q10 100 mg capsule 100 mg PO DAILY 06/17/22 05/06/25 History (CoQ-10) magnesium 30 mg tablet 30 mg PO DAILY 06/17/22 05/06/25 H istory multivitamin 1 tab PO DAILY 06/17/22 05/06/25 H istory omega 7-ggi-yui-fish oil 300 1 cap PO DAILY 06/17/22 05/06/25 H istory mg-1,000 mg capsule (Fish Oil) Hydrocortisone 2.5%/lidocaine 5% #30 ea 07/11/23 05/06/25 Rx suppository (cmpd) atorvastatin 10 mg tablet 10 mg PO DAILY 07/11/23 05/06/25 H istory cholecalciferol (vitamin D3) 75 50 mcg PO DAILY 07/11/23 05/06/25 History mcg (3,000 unit) tablet levothyroxine 25 mcg capsule 137 mcg PO DAILY 07/11/23 05/06/25 History loratadine 10 mg tablet (Claritin) 10 mg PO DAILY 07/11/23 05/06/25 History trazodone 50 mg tablet 50 mg PO QHS PRN insomnia 07/11/23 05/06/25 History escitalopram oxalate 20 mg tablet 20 mg PO DAILY 08/30/23 05/06/25 History Have you fallen in the past year?: No [facility] Medical History (Updated 05/06/25 @ 13:[address] 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 Surgical History History of breast surgery History of hysterectomy History of bunionectomy of left great toe History of total right knee replacement (TKR) Hx of arthroscopy of right knee Hx of eye surgery Hx of adenoidectomy Hx of tonsillectomy Family History Grandfather Arthritis Grandmother Arthritis Aunt Breast cancer Diabetes Father Cancer Rectal Mother Cancer Thyroid Uncle Diabetes Brother Heart disease Social History Smoking Status: Former smoker pack-years: 3 Tobacco: How many years used: 15 alcohol intake: current alcohol intake frequency: holidays/special occasions only substance use type: does not use what type of physical activity do you participate in: walking and yoga frequency: 1-2 times per week seatbelt use: always HPI dry needling/adjustment Chief Complaint: neck, upper, left low back pain Visit Number: 6 Details: Rachelle is a 69 year old female here to f/u with ongoing neck, upper back/shoulder blade, and left low back pain. She states her left neck has improved but complains of neck pain and stiffness that is worse on the right side. The pain extends down her trap under her right shoulder blade. She has been experiencing occasional headaches and rates her neck pain 4/10. She continues to c/o left low back/hip pain. She rates her pain 4/10. She denies new injury, numbness or tingling. She continues to do yoga to stay flexible and help ease her discomfort. Pt. reports chiropractic adjustments and dry needling are helpful in relieving her pain and discomfort but it gradually returns. 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 Normal [facility] .GFRon 04-29-2025 Estimated Glomerular Filtration Rate 95 ml/min/1.73sqm Normal [facility] Comment on above: Result Comment: Stages of Chronic Kidney Disease [...] calculate the eGFR results. Performed By: #### G FR, FT4, VIDH, THYAB, CMP, TSH #### [address] [address] CMPon 04-29-2025 Albumin Level 4.1 G/dL Normal 3.2-4.8 [facility] Comment on above: Performed By: #### G FR, FT4, VIDH, THYAB, CMP, TSH #### [address] [address] Albumin/Globulin [Mass ratio] 1.6 {ratio} Normal 0.9-1.6 [facility] Comment on above: Performed By: #### G FR, FT4, VIDH, THYAB, CMP, TSH #### [place] [id number] [place] [address] ALP [Catalytic activity/Vol] 63 U/L Normal 38-126 [facility] Comment on above: Performed By: #### G FR, FT4, VIDH, THYAB, CMP, TSH #### [place] [id number] [place] [address] ALT [Catalytic activity/Vol] 18 U/L Normal 10-49 [facility] Comment on above: Performed By: #### G FR, FT4, VIDH, THYAB, CMP, TSH #### [address] [address] AST [Catalytic activity/Vol] 20 U/L Normal 8-34 [facility] Comment on above: Performed By: #### G FR, FT4, VIDH, THYAB, CMP, TSH #### [address] [address] Bili Total 0.70 mg/dL Normal 0.20-1.20 [facility] Comment on above: Result Comment: Use of this assay is not recommended for patients undergoing treatment with eltrombopag due to the potential for falsely elevated results. Performed By: #### G FR, FT4, VIDH, THYAB, CMP, TSH #### [place] [id number] BUN/Creatinine Ratio 22.9 ratio High 10.0-22.0 [facility] Comment on above: Performed By: #### G FR, FT4, VIDH, THYAB, CMP, TSH #### [address] [address] Calcium [Mass/Vol] 8.8 mg/dL Normal 8.7-10.4 [facility] Comment on above: Performed By: #### G FR, FT4, VIDH, THYAB, CMP, TSH #### [address] [address] Chloride [Moles/Vol] 105 mmol/L Normal 98-110 [facility] Comment on above: Performed By: #### G FR, FT4, VIDH, THYAB, CMP, TSH #### [address] [address] CO2 [Moles/Vol] 26 mmol/L Normal 22-32 [facility] Comment on above: Performed By: #### G FR, FT4, VIDH, THYAB, CMP, TSH #### [address] [address] Creatinine [Mass/Vol] 0.70 mg/dL Normal 0.50-1.20 [facility] Comment on above: Result Comment: Test ing performed on Rigel analyzer using enzymatic creatinine methodology. Performed By: #### G FR, FT4, VIDH, THYAB, CMP, TSH #### [place] [address] Electrolyte Balance 8.0 mEq/L Normal 4.0-15.0 [facility] Comment on above: Performed By: #### G FR, FT4, VIDH, THYAB, CMP, TSH #### [place] [id number] Globulin 2.6 G/dL Normal 2.5-4.2 [facility] Comment on above: Performed By: #### G FR, FT4, VIDH, THYAB, CMP, TSH #### [place] [address] Glucose [Mass/Vol] 103 mg/dL Normal 82-115 [facility] Comment on above: Performed By: #### G FR, FT4, VIDH, THYAB, CMP, TSH #### [place] [id number] Potassium [Moles/Vol] 3.9 mmol/L Normal 3.5-5.0 [facility] Comment on above: Performed By: #### G FR, FT4, VIDH, THYAB, CMP, TSH #### [place] [id number] Sodium [Moles/Vol] 139 mmol/L Normal 136-145 [facility] Comment on above: Performed By: #### G FR, FT4, VIDH, THYAB, CMP, TSH #### [place] [id number] Total Protein 6.7 G/dL Normal 5.7-8.2 [facility] Comment on above: Performed By: #### G FR, FT4, VIDH, THYAB, CMP, TSH #### [place] [id number] Urea nitrogen [Mass/Vol] 16.0 mg/dL Normal 8.0-22.0 [facility] Comment on above: Performed By: #### G FR, FT4, VIDH, THYAB, CMP, TSH #### [place] [address] FT4on 04-29-2025 Free T4 [Mass/Vol] 1.55 ng/dL Normal 0.89-1.76 [facility] Comment on above: Result Comment: No te - New Reference Range in effect 20 Performed By: #### G FR, FT4, VIDH, THYAB, CMP, TSH #### [place] [address] THYABon 04-29-2025 anti-Thyroid Peroxidase 3584 units/ml High 0-60 [facility] Comment on above: Performed By: #### G FR, FT4, VIDH, THYAB, CMP, TSH #### [place] [address] Thyroglobulin Ab 305 units/ml High 15-60 [facility] Comment on above: Performed By: #### G FR, FT4, VIDH, THYAB, CMP, TSH #### [place] [address] TSHon 04-29-2025 TSH 1.297 mIU/mL Normal 0.550-4.780 [facility] Comment on above: Performed By: #### G FR, FT4, VIDH, THYAB, CMP, TSH #### [place] [address] VIDHon 04-29-2025 Vit. D 25-Hydroxy 40.1 ng/mL Normal [facility] Comment on above: Result Comment: Inte rpretive Values Based on Total 25(OH)D: Severe Deficiency <20 ng/mL Mild to Moderate Deficiency 20-30 ng/mL Optimum Levels 30-100 ng/mL Toxicity Possible >100 ng/mL Performed By: #### G FR, FT4, VIDH, THYAB, CMP, TSH #### [place] [address] Chiropractic Reporton 2024 Chiropractic Report [facility] [address] [place] [address] OFFICE VISIT Date of Service: 04/09/25 MR#: [id number] Acct: [id number] Name: RACHELLE CHAMPION (LYNN) Rep #: [id number] : 1955 Provider: GARCIA Roy Age/Sex: 69/F Location: [facility] Status: Signed Intake Vital Signs 02/11/25 14:52 Height 5 ft 8 in Intake Visit Reasons: dry needling/adjustment Chief Complaint: neck, upper and left low back pain Is patient in pain?: Yes (Neck, UBP, L hip) Pain scale (1-10): 3 Allergies Penicillins Allergy (Mild, Verified 04/09/25 13:51) itching Seasonal Allergies: Uncoded Allergy (Verified 04/09/25 13:51) Other Medications ???Medication ???Instructions ???Recorded ???Confirmed ???Type antiarthritic combination no.2 900 900 mg PO DAILY arthritis 04/09/25 History mg tablet (glucosamine-chondro itin) cinnamon bark 500 mg capsule 500 mg PO DAILY 06/17/22 04/09/25 History (Cinnamon) coenzyme Q10 100 mg capsule 100 mg PO DAILY 06/17/22 04/09/25 History (CoQ-10) magnesium 30 mg tablet 30 mg PO DAILY 06/17/22 04/09/25 H istory multivitamin 1 tab PO DAILY 06/17/22 04/09/25 H istory omega 7-vyv-hov-fish oil 300 1 cap PO DAILY 06/17/22 04/09/25 H istory mg-1,000 mg capsule (Fish Oil) Hydrocortisone 2.5%/lidocaine 5% #30 ea 07/11/23 04/09/25 Rx suppository (cmpd) atorvastatin 10 mg tablet 10 mg PO DAILY 07/11/23 04/09/25 H istory cholecalciferol (vitamin D3) 75 50 mcg PO DAILY 07/11/23 04/09/25 History mcg (3,000 unit) tablet levothyroxine 25 mcg capsule 137 mcg PO DAILY 07/11/23 04/09/25 History loratadine 10 mg tablet (Claritin) 10 mg PO DAILY 07/11/23 04/09/25 History trazodone 50 mg tablet 50 mg PO QHS PRN insomnia 07/11/23 04/09/25 History escitalopram oxalate 20 mg tablet 20 mg PO DAILY 08/30/23 04/09/25 History Have you fallen in the past year?: No [facility] Medical History Acute sinusitis, unspecified Hemorrhoids Degenerative disc disease, cervical History of benign neoplasm of bone Depression Anxiety Arthritis Hypothyroidism Cervical pain Segmental and somatic dysfunction of pelvic region Segmental and somatic dysfunction of cervical region Segmental and somatic dysfunction of thoracic region Segmental and somatic dysfunction of lumbar region 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 Surgical History History of breast surgery History of hysterectomy History of bunionectomy of left great toe History of total right knee replacement (TKR) Hx of arthroscopy of right knee Hx of eye surgery Hx of adenoidectomy Hx of tonsillectomy Family History Grandfather Arthritis Grandmother Arthritis Aunt Breast cancer Diabetes Father Cancer Rectal Mother Cancer Thyroid Uncle Diabetes Brother Heart disease Social History Smoking Status: Former smoker pack-years: 3 Tobacco: How many years used: 15 alcohol intake: current alcohol intake frequency: holidays/special occasions only substance use type: does not use what type of physical activity do you participate in: walking and yoga frequency: 1-2 times per week seatbelt use: always HPI dry needling/adjustment Chief Complaint: neck, upper, left low back pain Visit Number: 5 Details: Rachelle is a 69 year old female here to f/u with ongoing neck, upper back/shoulder blade, and left low back pain. She complains of neck pain and stiffness that is worse on the left side. The pain extends down her trap under her left shoulder blade. She has been experiencing occasional headaches. She feels as though her hips are painful and feel out of alignment, her left hip is the worst. She rates her pain 3/10. She denies new injury, numbness or tingling. She continues to do yoga to stay flexible and help ease her discomfort. Pt. reports chiropractic adjustments and dry needling are helpful in relieving her pain and discomfort but it gradually returns. Location: neck/back Duration: frequent Aggravating or associated factors: lifting, walking, ADL's Relieving factors: chiro Pain Quality: aching, dull and radiating Exam Musc General: Yes normal gait, joint tenderness and decreased range of motion; No normal posture or muscle weakness Cervical Spine: Yes loss of normal cervical lordosis, Yes cervical muscular tenderness bilateral diffuse , Yes cervical spasm left upper intrinsics, left greater than right diffuse trapezius and pa racervical muscles, Yes Trigger (trap) and Yes misalignment misalignment: C5, C6 and C7 Thoracic/Lumber: Yes thoracic and lumbar spine normal to ins (more content not included)... Normal [facility] Hemoglobin A1c percentageOrd ered By: Yonatan Thompson on 03-29-2025 HbA1c (Bld) [Mass fraction] 5.8 % High <5.7 [facility] Comment on above: Normal < 5.7 % Predi abetic 5.7 - 6.4 % Diabetic >or= 6.5 % Please note range changes. Result Comment: Norm al < 5.7 % Prediabetic 5.7 - 6.4 % Diabetic >or= 6.5 % Please note range changes. Performed By: #### L 501.9985 ####[facility] [id number] [place], [address] Anion gap in Serum or Plasma Ordered By: Yonatan Thompson on 03-22-2025 Anion gap [Moles/Vol] 10 mmol/L 5- [facility] BUN/creatinine ratioOrdered By: Yonatan Thompson on 03-22-2025 Urea nitrogen/Creatinine [Mass ratio] 22.1 mg/mg High - [facility] Bilirubin, totalOrdered By: Yonatan Thompson on 03-22-2025 Bilirubin [Mass/Vol] 0.44 mg/dL 0.00-1.30 [facility] Calculated very low density lipoprotein (VLDL) cholesterol measurementOrdered By: Yonatan Thompson on 03-22-2025 Calculated very low density lipoprotein (VLDL) cholesterol measurement 20 mg/dL 5-40 [facility] Carbon dioxide, total [Moles /volume] in Central venous bloodOrdered By: Yonatan Thompson on 03-22-2025 CO2 [Moles/Vol] 25.8 mmol/L 21.0-32.0 [facility] Chloride assayOrdered By: Suresh Thompson on 03-22-2025 Chloride [Moles/Vol] 103 mmol/L 98-108 [facility] Comprehensive Metabolic Prof ilon 03-22-2025 Albumin [Mass/Vol] 4.4 g/dL Normal 3.4-4.[address] [facility] Comment on above: Performed By: #### L 500.4100, L500.4050, L506.0400, L501.9520, L501.20742 #### [facility] [address] [place], [address] Albumin/Globulin [Mass ratio] 1.8 {ratio} Normal 0.9-2.4 [facility] Comment on above: Performed By: #### L 500.4100, L500.4050, L506.0400, L501.9520, L501.75172 #### [facility] [address] [place], [address] ALK PHOS 66 U/L Normal 35-104 [facility] Comment on above: Performed By: #### L 500.4100, L500.4050, L506.0400, L501.9520, L501.75827 #### [facility] [address] [place], [address] ALT [Catalytic activity/Vol] 19 U/L Normal <=34 [facility] Comment on above: Performed By: #### L 500.4100, L500.4050, L506.0400, L501.9520, L501.30959 #### [facility] [address] [place], [address] AST [Catalytic activity/Vol] 21 U/L Normal <=31 [facility] Comment on above: Performed By: #### L 500.4100, L500.4050, L506.0400, L501.9520, L501.41771 #### [facility] [address] [place], [address] Bilirubin [Mass/Vol] 0.44 mg/dL Normal 0.00-1.30 [facility] Comment on above: Performed By: #### L 500.4100, L500.4050, L506.0400, L501.9520, L501.12795 #### [facility] [address] [place], [address] BUN/CRE 22.1 RATIO High 10-20 [facility] Comment on above: Performed By: #### L 500.4100, L500.4050, L506.0400, L501.9520, L501.45109 #### [facility] [address] [place], [address] Calcium [Mass/Vol] 9.4 mg/dL Normal 7.6-11.[address] [facility] Comment on above: Performed By: #### L 500.4100, L500.4050, L506.0400, L501.9520, L501.89636 #### [facility] [address] [place], [address] Chloride [Moles/Vol] 103 mmol/L Normal 98-108 [facility] Comment on above: Performed By: #### L 500.4100, L500.4050, L506.0400, L501.9520, L501.78261 #### [facility] [address] [place], [address] CO2 [Moles/Vol] 25.8 mmol/L Normal 21.0-32.0 [facility] Comment on above: Performed By: #### L 500.4100, L500.4050, L506.0400, L501.9520, L501.61617 #### [facility] [address] [place], [address] Creatinine [Mass/Vol] 0.86 mg/dL Normal 0.70-1.20 [facility] Comment on above: Performed By: #### L 500.4100, L500.4050, L506.0400, L501.9520, L501.31160 #### [facility] [address] [place], [address] GAP 10 Normal 5-15 [facility] Comment on above: Performed By: #### L 500.4100, L500.4050, L506.0400, L501.9520, L501.11428 #### [facility] [address] [place], [address] GFR/1.73 sq M.predicted among non-blacks MDRD (S/P/Bld) [Vol rate/Area] 74 mL/min/{1.73_m2} Normal >60 [facility] Comment on above: Result Comment: mL/m in/1.73m2 CKD-EPI Creatinine Equation (2020) Performed By: #### L 500.4100, L500.4050, L506.0400, L501.9520, L501.72588 #### [facility] [address] [place], [address] Globulin (S) [Mass/Vol] 2.4 g/dL Normal 2.2-4.2 [facility] Comment on above: Performed By: #### L 500.4100, L500.4050, L506.0400, L501.9520, L501.95135 #### [facility] [address] [place], [address] Glucose [Mass/Vol] 120 mg/dL High 70-[address] [facility] Comment on above: Performed By: #### L 500.4100, L500.4050, L506.0400, L501.9520, L501.59476 #### [facility] [address] [place], [address] Potassium [Moles/Vol] 4.2 mmol/L Normal 3.3-5.1 [facility] Comment on above: Performed By: #### L 500.4100, L500.4050, L506.0400, L501.9520, L501.15142 #### [facility] [address] [place], [address] Sodium [Moles/Vol] 138 mmol/L Normal 133-[address] [facility] Comment on above: Performed By: #### L 500.4100, L500.4050, L506.0400, L501.9520, L501.74361 #### [facility] [address] [place], [address] T PROT 6.9 g/dL Normal 5.9-8.4 [facility] Comment on above: Performed By: #### L 500.4100, L500.4050, L506.0400, L501.9520, L501.96006 #### [facility] [address] [place], [address] Urea nitrogen [Mass/Vol] 19 mg/dL Normal 4-19 [facility] Comment on above: Performed By: #### L 500.4100, L500.4050, L506.0400, L501.9520, L501.45406 #### [facility] [address] [place], [address] Free T3on 03-22-2025 Free T3 [Mass/Vol] 2.1 pg/mL Low 2.18-3.[address] [facility] Comment on above: Performed By: #### L 500.4100, L500.4050, L506.0400, L501.9520, L501.48289 ####[facility] [address] [place], [place], [id number] Free F4Pdckhnu By: Yonatan marquez on 03-22-2025 Free T3 [Mass/Vol] 2.1 pg/mL Low 2.18-3.[address] [facility] Glomerular filtration rate ( GFR) estimation/1.73 sq m using serum, plasma, or whole bOrdered By: Yonatan Thompson on 03-22-2025 GFR/1.73 sq M.predicted among non-blacks MDRD (S/P/Bld) [Vol rate/Area] 74 mL/min/{1.73_m2} >60 [facility] Comment on above: mL/min/1.73m2 CKD-EP I Creatinine Equation (2020) LDL calc ser/plasOrdered By: Yonatan Thompson on 03-22-2025 Cholesterol in LDL [Mass/Vol] 118 mg/dL [facility] Comment on above: Nwzksofepl=910-271 m g/dL & Higher Kcqf=783 mg/dL or greater Laboratory - Chemistry and C hemistry - challengeOrdered By: Yonatan Thompson on 03-22-2025 AST [Catalytic activity/Vol] 21 U/L <32 [facility] Lipid Profileon 03-22-2025 CHOL:HDL 3.26 Normal [facility] Comment on above: Performed By: #### L 500.4100, L500.4050, L506.0400, L501.9520, L501.57210 #### [facility] [address] [place], [place], [id number] Cholesterol [Mass/Vol] 199 mg/dL Normal <=200 [facility] Comment on above: Result Comment: Chol esterol level, Desirable <200 mg/dL Borderline high cholesterol 200-239 mg/dL High cholesterol >=240 mg/dL Recommendations of the NCEP Adult Treatment Panel for the following risk-cutoff thresholds for the [place] population. Performed By: #### L 500.4100, L500.4050, L506.0400, L501.9520, L501.18646 #### [facility] [address] [place], [place], [id number] Cholesterol in HDL [Mass/Vol] 61 mg/dL Normal [facility] Comment on above: Result Comment: Rafia onal Cholesterol Education Program (NCEP) guidelines: <40 mg/dL: Low HDL-cholesterol (major risk factor for CHD) >= 60 mg/dL: High HDL-cholesterol (negative risk factor for CHD) HDL-cholesterol is affected by a number of factors, e.g. smoking, exercise, hormones, sex and age. Performed By: #### L 500.4100, L500.4050, L506.0400, L501.9520, L501.68034 #### [facility] [address] [place], [address] Cholesterol in LDL [Mass/Vol] 118 mg/dL Normal [facility] Comment on above: Result Comment: Bord cowsyj=933-506 mg/dL Higher Fvlg=124 mg/dL or greater Performed By: #### L 500.4100, L500.4050, L506.0400, L501.9520, L501.53715 #### [facility] [address] [place], [address] Cholesterol in VLDL [Mass/Vol] 20 mg/dL Normal 5-40 [facility] Comment on above: Performed By: #### L 500.4100, L500.4050, L506.0400, L501.9520, L501.57635 #### [facility] [address] [place], [address] Triglyceride [Mass/Vol] 98 mg/dL Normal [facility] Comment on above: Result Comment: The drugs N-Acetylcysteine and Metamizole may falsely depress this assay. Normal range: <150 mg/dL Borderline High: 150-199 mg/dL High: 200-499 mg/dL Very High: >500 mg/dL Performed By: #### L 500.4100, L500.4050, L506.0400, L501.9520, L501.39588 #### [facility] [address] [place], [address] Potassium measurement (mass/ volume)Ordered By: Yonatan Thompson on 03-22-2025 Potassium (Unsp spec) [Mass/Vol] 4.2 mmol/L 3.3-5.1 [facility] Screening total cholesterol/ high density lipoprotein (HDL) cholesterol ratioOrdered By: Yonatan Thompson on 03-22-2025 Cholesterol.total/Cho lesterol in HDL [Mass ratio] 3.26 {ratio} [facility] Serum creatinine measurement (mass/volume)Ordered By: Yonatan Thompson on 03-22-2025 Creatinine [Mass/Vol] 0.86 mg/dL 0.70-1.20 [facility] Serum globulin measurementOr dered By: Yonatan Thompson on 03-22-2025 Globulin (S) [Mass/Vol] 2.4 g/dL 2.2-4.2 [facility] Serum glucose measurement (m ass/volume)Ordered By: Yonatan Thompson on 03-22-2025 Glucose [Mass/Vol] 120 mg/dL High 70-[address] [facility] Serum or plasma alanine samson otransferase (ALT) measurementOrdered By: Yonatan Thompson on 03-22-2025 ALT [Catalytic activity/Vol] 19 U/L <35 [facility] Serum or plasma albumin annabel urement (mass/volume)Ordered By: Yonatan Thompson on 03-22-2025 Albumin [Mass/Vol] 4.4 g/dL 3.4-4.[address] [facility] Serum or plasma albumin/glob ulin mass ratioOrdered By: Yonatan Thompson on 03-22-2025 Albumin/Globulin [Mass ratio] 1.8 {ratio} 0.9-2.4 [facility] Serum or plasma alkaline katelynn sphatase measurementOrdered By: Yonatan Thompson on 03-22-2025 ALP [Catalytic activity/Vol] 66 U/L 35-104 [facility] Serum or plasma calcium annabel urement (mass/volume)Ordered By: Yonatan Thompson on 03-22-2025 Calcium [Mass/Vol] 9.4 mg/dL 7.6-11.[address] [facility] Serum or plasma cholesterol in HDL measurement (mass/volume)Ordered By: Yonatan Thompson on 05-09-2025 Cholesterol in HDL [Mass/Vol] 61 mg/dL >40 [facility] Comment on above: National Cholesterol Education Program (NCEP) guidelines:<40 mg/dL: Low HDL-cholesterol (major risk factor for CHD)>= 60 mg/dL: High HDL-cholesterol (negative risk factor for CHD)HDL-cholesterol is affected by a number of factors, e.g. smoking, exercise, hormones, sex and age. Serum or plasma cholesterol measurement (mass/volume)Ordered By: Yonatan Thompson on 03-22-2025 Cholesterol [Mass/Vol] 199 mg/dL <201 [facility] Comment on above: Cholesterol level, D esirable <200 mg/dLBorderline high cholesterol 200-239 mg/dLHigh cholesterol >=240 mg/dLRecommendations of the NCEP Adult Treatment Panel for the following risk-cutoff thresholds for the [place] population. Serum or plasma urea nitroge n measurement (mass/volume)Ordered By: Yonatan Thompson on 03-22-2025 Urea nitrogen [Mass/Vol] 19 mg/dL 4-19 [facility] Sodium levelOrdered By: Yonatan Thompson on 03-22-2025 Sodium [Moles/Vol] 138 mmol/L 133-[address] [facility] T4 Free Directon 03-22-2025 T4 FREE DIRECT 1.40 ng/dL Normal 0.76-1.46 [facility] Comment on above: Performed By: #### L 500.4100, L500.4050, L506.0400, L501.9520, L501.50762 ####[facility] [address] [place], [place], [id number] T4 freeOrdered By: Yonatan marquez on 03-22-2025 Free T4 [Mass/Vol] 1.40 ng/dL 0.76-1.[address] [facility] TSH DL <= 0.005 mIU/L QnOrde red By: Yonatan Thompson on 03-22-2025 TSH Qn 3.870 uIU/mL 0.300-4.200 [facility] Thyroid Stim Hormone (TSH)on 03-22-2025 TSH 3.870 uIU/mL Normal 0.300-4.200 [facility] Comment on above: Performed By: #### L 500.4100, L500.4050, L506.0400, L501.9520, L501.09029 ####[facility] [address] [place], [address] Total proteinOrdered By: Zahra Thompson on 03-22-2025 Protein [Mass/Vol] 6.9 g/dL 5.9-8.[address] [facility] Triglycerides measurementOrd ered By: Yonatan Thompson on 03-22-2025 Triglyceride [Mass/Vol] 98 mg/dL <199 [facility] Comment on above: The drugs N-Acetylcy steine and Metamizole may falsely depress this assay. Normal range: <150 mg/dLBorderline High: 150-199 mg/dLHigh: 200-499 mg/dLVery High: >500 mg/dL Chiropractic Reporton 2024 Chiropractic Report [facility] [address] [place] [address] OFFICE VISIT Date of Service: 03/11/25 MR#: [id number] Acct: [id number] Name: RACHELLE CHAMPION (LYNN) Rep #: [id number] : 1955 Provider: GARCIA Roy Age/Sex: 69/F Location: [facility] Status: Signed Intake Vital Signs 09/03/24 18:51 02/11/25 14:52 Height 5 ft 8 in 5 ft 8 in Intake Visit Reasons: dry needling/adjustment Chief Complaint: neck, upper and left low back pain Is patient in pain?: Yes (neck, hips) Pain scale (1-10): 4 Allergies Penicillins Allergy (Mild, Verified 03/11/25 13:12) itching Seasonal Allergies: Uncoded Allergy (Verified 03/11/25 13:12) Other Medications ???Medication ???Instructions ???Recorded ???Confirmed ???Type antiarthritic combination no.2 900 900 mg PO DAILY arthritis 03/11/25 History mg tablet (glucosamine-chondro itin) cinnamon bark 500 mg capsule 500 mg PO DAILY 06/17/22 03/11/25 History (Cinnamon) coenzyme Q10 100 mg capsule 100 mg PO DAILY 06/17/22 03/11/25 History (CoQ-10) magnesium 30 mg tablet 30 mg PO DAILY 06/17/22 03/11/25 H istory multivitamin 1 tab PO DAILY 06/17/22 03/11/25 H istory omega 5-ohm-ekq-fish oil 300 1 cap PO DAILY 06/17/22 03/11/25 H istory mg-1,000 mg capsule (Fish Oil) Hydrocortisone 2.5%/lidocaine 5% #30 ea 07/11/23 03/11/25 Rx suppository (cmpd) atorvastatin 10 mg tablet 10 mg PO DAILY 07/11/23 03/11/25 H istory cholecalciferol (vitamin D3) 75 50 mcg PO DAILY 07/11/23 03/11/25 History mcg (3,000 unit) tablet levothyroxine 25 mcg capsule 137 mcg PO DAILY 07/11/23 03/11/25 History loratadine 10 mg tablet (Claritin) 10 mg PO DAILY 07/11/23 03/11/25 History trazodone 50 mg tablet 50 mg PO QHS PRN insomnia 07/11/23 03/11/25 History escitalopram oxalate 20 mg tablet 20 mg PO DAILY 08/30/23 03/11/25 History Have you fallen in the past year?: No PFSH Medical History Acute sinusitis, unspecified Hemorrhoids Degenerative disc disease, cervical History of benign neoplasm of bone Depression Anxiety Arthritis Hypothyroidism Cervical pain Segmental and somatic dysfunction of pelvic region Segmental and somatic dysfunction of cervical region Segmental and somatic dysfunction of thoracic region Segmental and somatic dysfunction of lumbar region 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 Surgical History History of breast surgery History of hysterectomy History of bunionectomy of left great toe History of total right knee replacement (TKR) Hx of arthroscopy of right knee Hx of eye surgery Hx of adenoidectomy Hx of tonsillectomy Family History Grandfather Arthritis Grandmother Arthritis Aunt Breast cancer Diabetes Father Cancer Rectal Mother Cancer Thyroid Uncle Diabetes Brother Heart disease Social History Smoking Status: Former smoker pack-years: 3 Tobacco: How many years used: 15 alcohol intake: current alcohol intake frequency: holidays/special occasions only substance use type: does not use what type of physical activity do you participate in: walking and yoga frequency: 1-2 times per week seatbelt use: always HPI dry needling/adjustment Chief Complaint: neck, upper, left low back pain Visit Number: 4 Details: Rachelle is a 69 year old female here to f/u with ongoing neck, upper back/shoulder blade, and left low back pain. Pt. advises she just returned from a trip last week. She states the increase in sitting, and walking has caused some pain and stiffness in her right neck and hips. She rates her right neck pain 4/10 and states she has been experiencing increased KNIGHT's. She also c/o her bilateral hips feeling out of alignment. She rates her hip/low back pain 4/10. She states her neck stiffness and tension extends into her shoulders and upper back. She denies new injury, numbness or tingling. She continues to do yoga to stay flexible and help ease her discomfort. Pt. reports chiropractic adjustments and dry needling are helpful in relieving her pain and discomfort but it gradually returns. Location: neck/back Duration: frequent Aggravating or associated factors: lifting, walking, ADL's Relieving factors: chiro Pain Quality: aching, dull and radiating Exam Musc General: Yes normal gait, joint tenderness and decreased range of motion; No normal posture or muscle weakness Cervical Spine: Yes loss of normal cervical lordosis, Yes cervical muscular tenderness left greater than right lower , Yes cervical spasm left upper intrinsics, left greater than right diffuse trap (more content not included)... Normal [facility] Chiropractic Reporton 2024 Chiropractic Report [facility] [address] [place] [address] OFFICE VISIT Date of Service: 02/11/25 MR#: [id number] Acct: [id number] Name: RACHELLE CHAMPION (LYNN)BETH Rep #: [id number] : 1955 Provider: GARCIA Roy Age/Sex: 69/F Location: [facility] Status: Signed Intake Vital Signs 09/03/24 18:51 Height 5 ft 8 in Intake Visit Reasons: dry needling/adjustment Chief Complaint: neck, upper and left low back pain Is patient in pain?: Yes (low back ) Pain scale (1-10): 3 Allergies Penicillins Allergy (Mild, Verified 02/11/25 14:17) itching Seasonal Allergies: Uncoded Allergy (Verified 02/11/25 14:17) Other Medications ???Medication ???Instructions ???Recorded ???Confirmed ???Type antiarthritic combination no.2 900 900 mg PO DAILY arthritis 02/11/25 History mg tablet (glucosamine-chondro itin) cinnamon bark 500 mg capsule 500 mg PO DAILY 06/17/22 02/11/25 History (Cinnamon) coenzyme Q10 100 mg capsule 100 mg PO DAILY 06/17/22 02/11/25 History (CoQ-10) magnesium 30 mg tablet 30 mg PO DAILY 06/17/22 02/11/25 H istory multivitamin 1 tab PO DAILY 06/17/22 02/11/25 H istory omega 0-fzw-vfo-fish oil 300 1 cap PO DAILY 06/17/22 02/11/25 H istory mg-1,000 mg capsule (Fish Oil) Hydrocortisone 2.5%/lidocaine 5% #30 ea 07/11/23 02/11/25 Rx suppository (cmpd) atorvastatin 10 mg tablet 10 mg PO DAILY 07/11/23 02/11/25 H istory cholecalciferol (vitamin D3) 75 50 mcg PO DAILY 07/11/23 02/11/25 History mcg (3,000 unit) tablet levothyroxine 25 mcg capsule 137 mcg PO DAILY 07/11/23 02/11/25 History loratadine 10 mg tablet (Claritin) 10 mg PO DAILY 07/11/23 02/11/25 History trazodone 50 mg tablet 50 mg PO QHS PRN insomnia 07/11/23 02/11/25 History escitalopram oxalate 20 mg tablet 20 mg PO DAILY 08/30/23 02/11/25 History Have you fallen in the past year?: No PFSH Medical History Acute sinusitis, unspecified Hemorrhoids Degenerative disc disease, cervical History of benign neoplasm of bone Depression Anxiety Arthritis Hypothyroidism Cervical pain Segmental and somatic dysfunction of pelvic region Segmental and somatic dysfunction of cervical region Segmental and somatic dysfunction of thoracic region Segmental and somatic dysfunction of lumbar region 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 Surgical History History of breast surgery History of hysterectomy History of bunionectomy of left great toe History of total right knee replacement (TKR) Hx of arthroscopy of right knee Hx of eye surgery Hx of adenoidectomy Hx of tonsillectomy Family History Grandfather Arthritis Grandmother Arthritis Aunt Breast cancer Diabetes Father Cancer Rectal Mother Cancer Thyroid Uncle Diabetes Brother Heart disease Social History Smoking Status: Former smoker pack-years: 3 Tobacco: How many years used: 15 alcohol intake: current alcohol intake frequency: holidays/special occasions only substance use type: does not use what type of physical activity do you participate in: walking and yoga frequency: 1-2 times per week seatbelt use: always HPI dry needling/adjustment Chief Complaint: neck, upper, left low back pain Visit Number: 3 Details: Rachelle is a 69 year old female here to f/u with ongoing neck, upper back/shoulder blade, and left low back pain. Pt. advises she is experiencing increased pain in her left low back recently. She states she is in need of rn home care. She complains of low back pain that is worse on the left and extends into her hip. She rates her low back pain 3/10. She is experiencing neck stiffness and tension that extends into her shoulders and upper back. She denies new injury, numbness or tingling. She is excited to be leaving for [place] on Tuesday and is would like relief for her trip. She continues to do yoga to stay flexible and help ease her discomfort. Pt. reports chiropractic adjustments and dry needling are helpful in relieving her pain and discomfort but it gradually returns. Location: neck/back Duration: frequent Aggravating or associated factors: lifting, walking, ADL's Relieving factors: chiro Pain Quality: aching, dull and radiating Exam Musc General: Yes normal gait, joint tenderness and decreased range of motion; No normal posture or muscle weakness Cervical Spine: Yes loss of normal cervical lordosis, Yes cervical muscular tenderness left greater than right lower , Yes cervical spasm left upper intrinsics, left greater than right diffuse trapezius and paracervical muscles, Ye (more content not included)... Normal [facility] Chiropractic Reporton 2024 Chiropractic Report [facility] [address] [place] [address] OFFICE VISIT Date of Service: 01/10/25 MR#: [id number] Acct: [id number] Name: RACHELLE CHAMPION Rep #: [id number] : 1955 Provider: GARCIA Roy Age/Sex: 69/F Location: [facility] Status: Signed Intake Vital Signs 09/03/24 18:51 Height 5 ft 8 in Intake Visit Reasons: dry needling/adjustment Chief Complaint: neck, upper and left low back pain Is patient in pain?: Yes (Neck, back) Pain scale (1-10): 4 Allergies Penicillins Allergy (Mild, Verified 01/10/25 12:11) itching Seasonal Allergies: Uncoded Allergy (Verified 01/10/25 12:11) Other Medications ???Medication ???Instructions ???Recorded ???Confirmed ???Type antiarthritic combination no.2 900 900 mg PO DAILY arthritis 01/10/25 History mg tablet (glucosamine-chondro itin) cinnamon bark 500 mg capsule 500 mg PO DAILY 06/17/22 01/10/25 History (Cinnamon) coenzyme Q10 100 mg capsule 100 mg PO DAILY 06/17/22 01/10/25 History (CoQ-10) magnesium 30 mg tablet 30 mg PO DAILY 06/17/22 01/10/25 H istory multivitamin 1 tab PO DAILY 06/17/22 01/10/25 H istory omega 0-yec-uwb-fish oil 300 1 cap PO DAILY 06/17/22 01/10/25 H istory mg-1,000 mg capsule (Fish Oil) Hydrocortisone 2.5%/lidocaine 5% #30 ea 07/11/23 01/10/25 Rx suppository (cmpd) atorvastatin 10 mg tablet 10 mg PO DAILY 07/11/23 01/10/25 H istory cholecalciferol (vitamin D3) 75 50 mcg PO DAILY 07/11/23 01/10/25 History mcg (3,000 unit) tablet levothyroxine 25 mcg capsule 137 mcg PO DAILY 07/11/23 01/10/25 History loratadine 10 mg tablet (Claritin) 10 mg PO DAILY 07/11/23 01/10/25 History trazodone 50 mg tablet 50 mg PO QHS PRN insomnia 07/11/23 01/10/25 History escitalopram oxalate 20 mg tablet 20 mg PO DAILY 08/30/23 01/10/25 History Have you fallen in the past year?: No PFSH Medical History Acute sinusitis, unspecified Hemorrhoids Degenerative disc disease, cervical History of benign neoplasm of bone Depression Anxiety Arthritis Hypothyroidism Cervical pain Segmental and somatic dysfunction of pelvic region Segmental and somatic dysfunction of cervical region Segmental and somatic dysfunction of thoracic region Segmental and somatic dysfunction of lumbar region 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 Surgical History History of breast surgery History of hysterectomy History of bunionectomy of left great toe History of total right knee replacement (TKR) Hx of arthroscopy of right knee Hx of eye surgery Hx of adenoidectomy Hx of tonsillectomy Family History Grandfather Arthritis Grandmother Arthritis Aunt Breast cancer Diabetes Father Cancer Rectal Mother Cancer Thyroid Uncle Diabetes Brother Heart disease Social History Smoking Status: Former smoker pack-years: 3 Tobacco: How many years used: 15 alcohol intake: current alcohol intake frequency: holidays/special occasions only substance use type: does not use what type of physical activity do you participate in: walking and yoga frequency: 1-2 times per week seatbelt use: always HPI dry needling/adjustment Chief Complaint: neck, upper, left low back pain Visit Number: 2 Details: Rachelle is a 69 year old female here to f/u with ongoing neck, upper back/shoulder blade, and left low back pain. She had to go longer between appointments and she can definitely tell a difference as her pain has increased. She complains of left sided neck pain and stiffness that extends into her shoulder and upper back. She has been experiencing frequent headaches, typically every other day. She reports limited ROM in her neck. She also complains of low back pain that is worse on the left and extends into her hip. She rates her overall pain 4/10. She states the cold weather exacerbates her pain. She continues to do yoga to stay flexible and help ease her discomfort. She denies new injury, numbness or tingling. Pt. reports adjustments, and dry needling are helpful in relieving her pain and discomfort but it gradually returns. Location: neck/back Duration: frequent Aggravating or associated factors: lifting, walking, ADL's Relieving factors: chiro Pain Quality: aching, dull and radiating Exam Musc General: Yes normal gait, joint tenderness and decreased range of motion; No normal posture or muscle weakness Cervical Spine: Yes loss of normal cervical lordosis, Yes cervical muscular tenderness left greater than right lower , Yes cervical spasm left upper intrinsics, left greater than rig (more content not included)... Normal [facility] Albumin to globulin ratioOrd ered By: Yonatan Thompson on 12-17-2024 Albumin/Globulin [Mass ratio] 1.1 {ratio} 0.9-2.4 [facility] Bilirubin, totalOrdered By: Yonatan Thompson on 12-17-2024 Bilirubin [Mass/Vol] 0.50 mg/dL 0.20-1.00 [facility] Comment on above: For patients on eltr ombopag therapy, use of Dimension [place] TBIL is not recommended. Blood urea nitrogen (BUN)/cr eatinine ratioOrdered By: Yonatan Thompson on 12-17-2024 Urea nitrogen/Creatinine [Mass ratio] 25.5 mg/mg High 10-20 [facility] Carbon dioxide measurementOr dered By: Yonatan Thompson on 12-17-2024 CO2 [Moles/Vol] 26.0 mmol/L 21.0-32.0 [facility] Chloride measurementOrdered By: Yonatan Thompson on 02-03-2025 Chloride [Moles/Vol] 108 mmol/L High 98-107 [facility] Comprehensive Metabolic Prof ilon 12-17-2024 Albumin [Mass/Vol] 3.6 g/dL Normal 3.2-5.[address] [facility] Comment on above: Performed By: #### L 501.56429, L500.4050, L506.0400, L501.9520 ####[facility] [address] [place], [address] Albumin/Globulin [Mass ratio] 1.1 {ratio} Normal 0.9-2.4 [facility] Comment on above: Performed By: #### L 501.59623, L500.4050, L506.0400, L501.9520 ####[facility] [address] [place], [address] ALK P 69 U/L Normal 45-117 [facility] Comment on above: Performed By: #### L 501.63026, L500.4050, L506.0400, L501.9520 ####[facility] [address] [place], [address] ALT [Catalytic activity/Vol] 25 U/L Normal 13-56 [facility] Comment on above: Performed By: #### L 501.74344, L500.4050, L506.0400, L501.9520 ####[facility] [address] [place], [address] AST [Catalytic activity/Vol] 13 U/L Low 15-37 [facility] Comment on above: Performed By: #### L 501.60322, L500.4050, L506.0400, L501.9520 ####[facility] [address] [place], [address] Bilirubin [Mass/Vol] 0.50 mg/dL Normal 0.20-1.00 [facility] Comment on above: Result Comment: For patients on eltrombopag therapy, use of Dimension [place] TBIL is not recommended. Performed By: #### L 501.42830, L500.4050, L506.0400, L501.9520 ####[facility] [address] [place], [address] BUN/CRE 25.5 RATIO High 10-20 [facility] Comment on above: Performed By: #### L 501.44894, L500.4050, L506.0400, L501.9520 ####[facility] [address] [place], [address] CA,Total 8.8 mg/dL Normal 8.5-10.1 [facility] Comment on above: Performed By: #### L 501.65838, L500.4050, L506.0400, L501.9520 ####[facility] [address] [place], [address] Chloride [Moles/Vol] 108 mmol/L High 98-107 [facility] Comment on above: Performed By: #### L 501.46276, L500.4050, L506.0400, L501.9520 ####[facility] [address] [place], [address] CO2 [Moles/Vol] 26.0 mmol/L Normal 21.0-32.0 [facility] Comment on above: Performed By: #### L 501.88270, L500.4050, L506.0400, L501.9520 ####[facility] [address] [place], [address] Creatinine [Mass/Vol] 0.74 mg/dL Normal 0.55-1.02 [facility] Comment on above: Result Comment: The validity of the calculated GFR GFRAA in patients over 70 years has not been determined. Clinical correlation is essential. Performed By: #### L 501.91738, L500.4050, L506.0400, L501.9520 ####[facility] [address] [place], [address] EST GFR - AA 100 mL/min Normal >60 [facility] Comment on above: Result Comment: Afri can [place] GFR Calc Performed By: #### L 501.05659, L500.4050, L506.0400, L501.9520 ####[facility] [address] [place], [address] GAP 7 Normal 5-15 [facility] Comment on above: Performed By: #### L 501.44790, L500.4050, L506.0400, L501.9520 ####[facility] [address] [place], [address] GFR/1.73 sq M.predicted among non-blacks MDRD (S/P/Bld) [Vol rate/Area] 82 mL/min/{1.73_m2} Normal >60 [facility] Comment on above: Result Comment: Non- GFR Calc Performed By: #### L 501.37473, L500.4050, L506.0400, L501.9520 ####[facility] [address] [place], [address] Globulin (S) [Mass/Vol] 3.4 g/dL Normal 2.2-4.2 [facility] Comment on above: Performed By: #### L 501.46799, L500.4050, L506.0400, L501.9520 ####[facility] [address] [place], [address] Glucose [Mass/Vol] 118 mg/dL High 74-[address] [facility] Comment on above: Result Comment: Fast ing Glucose result from 100 to 125 mg/dL suggests IMPAIRED HOMEOSTASIS per A.D.A. criteria. Performed By: #### L 501.04382, L500.4050, L506.0400, L501.9520 ####[facility] [address] [place], [address] Potassium [Moles/Vol] 4.0 mmol/L Normal 3.5-5.1 [facility] Comment on above: Performed By: #### L 501.70032, L500.4050, L506.0400, L501.9520 ####[facility] [address] [place], [address] Sodium [Moles/Vol] 141 mmol/L Normal 136-[address] [facility] Comment on above: Performed By: #### L 501.41439, L500.4050, L506.0400, L501.9520 ####[facility] [address] [place], [address] T PROT 7.0 g/dL Normal 6.4-8.2 [facility] Comment on above: Performed By: #### L 501.85166, L500.4050, L506.0400, L501.9520 ####[facility] [address] [place], [address] Urea nitrogen [Mass/Vol] 19 mg/dL High 7-18 [facility] Comment on above: Performed By: #### L 501.96232, L500.4050, L506.0400, L501.9520 ####[facility] [address] [place], [address] Direct serum free thyroxine (FT4) measurementOrdered By: Yonatan Thompson on 12-17-2024 Free T4 [Mass/Vol] 1.13 ng/dL 0.76-1.[address] [facility] Free T3on 12-17-2024 Free T3 [Mass/Vol] 2.5 pg/mL Normal 2.18-3.[address] [facility] Comment on above: Performed By: #### L 501.83927, L500.4050, L506.0400, L501.9520 ####[facility] [address] [place], [address] Free X5Ncvrmyd By: Yonatan marquez on 12-17-2024 Free T3 [Mass/Vol] 2.5 pg/mL 2.18-3.[address] [facility] Glomerular filtration rate ( GFR) estimationOrdered By: Yonatan Thompson on 12-17-2024 GFR/1.73 sq M.predicted among non-blacks MDRD (S/P/Bld) [Vol rate/Area] 82 mL/min/{1.73_m2} >60 [facility] Comment on above: Non- GFR Calc Glucose measurementOrdered B y: Yonatan Thompson on 12-17-2024 Glucose [Mass/Vol] 118 mg/dL High 74-[address] [facility] Comment on above: Fasting Glucose resu lt from 100 to 125 mg/dL suggests IMPAIRED HOMEOSTASIS per A.D.A. criteria. Laboratory - Chemistry and C hemistry - challengeOrdered By: Yonatan Thompson on 12-17-2024 AST [Catalytic activity/Vol] 13 U/L Low 15-37 [facility] Potassium measurementOrdered By: Yonatan Thompson on 12-17-2024 Potassium [Moles/Vol] 4.0 mmol/L 3.5-5.1 [facility] Serum anion gap measurementO rdered By: Yonatan Thompson on 12-17-2024 Anion gap [Moles/Vol] 7 mmol/L 5-15 [facility] Serum globulin measurementOr dered By: Yonatan Thompson on 12-17-2024 Globulin (S) [Mass/Vol] 3.4 g/dL 2.2-4.2 [facility] Serum or plasma alanine samson otransferase (ALT) measurementOrdered By: Yonatan Thompson on 12-17-2024 ALT [Catalytic activity/Vol] 25 U/L 13-56 [facility] Serum or plasma albumin annabel urement (mass/volume)Ordered By: Yonatan Thompson on 12-17-2024 Albumin [Mass/Vol] 3.6 g/dL 3.2-5.[address] [facility] Serum or plasma alkaline katelynn sphatase measurementOrdered By: Yonatan Thompson on 12-17-2024 ALP [Catalytic activity/Vol] 69 U/L 45-117 [facility] Serum or plasma calcium annabel urement (mass/volume)Ordered By: Yonatan Thompson on 12-17-2024 Calcium [Mass/Vol] 8.8 mg/dL 8.5-10.[address] [facility] Serum or plasma creatinine m easurement (mass/volume)Ordered By: Yonatan Thompson on 12-17-2024 Creatinine [Mass/Vol] 0.74 mg/dL 0.55-1.02 [facility] Comment on above: The validity of the calculated GFR & GFRAA in patients over 70 years has not been determined. Clinical correlation is essential. Serum or plasma thyroid stim ulating hormone (TSH) measurement (units/volume)Ordered By: Yonatan Thompson on 12-17-2024 TSH Qn 1.020 uIU/mL 0.358-3.740 [facility] Serum or plasma urea nitroge n measurement (mass/volume)Ordered By: Yonatan Thompson on 12-17-2024 Urea nitrogen [Mass/Vol] 19 mg/dL High 7-18 [facility] Sodium levelOrdered By: Yonatna Thompson on 12-17-2024 Sodium [Moles/Vol] 141 mmol/L 136-[address] [facility] T4 Free Directon 12-17-2024 T4 FREE DIRECT 1.13 ng/dL Normal 0.76-1.46 [facility] Comment on above: Performed By: #### L 501.62534, L500.4050, L506.0400, L501.9520 ####[facility] [address] [place], [address] Thyroid Stim Hormone (TSH)on 12-17-2024 TSH 1.020 uIU/mL Normal 0.358-3.740 [facility] Comment on above: Performed By: #### L 501.56176, L500.4050, L506.0400, L501.9520 ####[facility] [address], [address] Total proteinOrdered By: Zahra Thompson on 12-17-2024 Protein [Mass/Vol] 7.0 g/dL 6.4-8.[address] [facility] Chiropractic Reporton 2024 Chiropractic Report [facility] [place] [address] OFFICE VISIT Date of Service: 11/26/24 MR#: [id number] Acct: [id number] Name: RACHELLE CHAMPION Rep #: [id number] : 1955 Provider: GARCIA Roy Age/Sex: 69/F Location: [facility] [place] Status: Signed Intake Vital Signs 09/03/24 18:51 Height 5 ft 8 in Intake Visit Reasons: dry needling/adjustment Chief Complaint: neck, upper and left low back pain Is patient in pain?: Yes (left upper and low back ) Pain scale (1-10): 4 Allergies Penicillins Allergy (Mild, Verified 11/26/24 13:14) itching Seasonal Allergies: Uncoded Allergy (Verified 11/26/24 13:14) Other Medications ???Medication ???Instructions ???Recorded ???Confirmed ???Type antiarthritic combination no.2 900 900 mg PO DAILY arthritis 06/17/22 11/26/24 History mg tablet (glucosamine-chondro itin) cinnamon bark 500 mg capsule 500 mg PO DAILY 06/17/22 11/26/24 History (Cinnamon) coenzyme Q10 100 mg capsule 100 mg PO DAILY 06/17/22 11/26/24 History (CoQ-10) magnesium 30 mg tablet 30 mg PO DAILY 06/17/22 11/26/24 History multivitamin 1 tab PO DAILY 06/17/22 11/26/24 History omega 4-ibv-vkh-fish oil 300 1 cap PO DAILY 06/17/22 11/26/24 History mg-1,000 mg capsule (Fish Oil) Hydrocortisone 2.5%/lidocaine 5% #30 ea 07/11/23 11/26/24 Rx suppository (cmpd) atorvastatin 10 mg tablet 10 mg PO DAILY 07/11/23 11/26/24 History cholecalciferol (vitamin D3) 75 50 mcg PO DAILY 07/11/23 11/26/24 History mcg (3,000 unit) tablet levothyroxine 25 mcg capsule 137 mcg PO DAILY 07/11/23 11/26/24 History loratadine 10 mg tablet (Claritin) 10 mg PO DAILY 07/11/23 11/26/24 History trazodone 50 mg tablet 50 mg PO QHS PRN insomnia 07/11/23 11/26/24 History escitalopram oxalate 20 mg tablet 20 mg PO DAILY 08/30/23 11/26/24 History Have you fallen in the past year?: No PFSH Medical History Acute sinusitis, unspecified Hemorrhoids Degenerative disc disease, cervical History of benign neoplasm of bone Depression Anxiety Arthritis Hypothyroidism Cervical pain Segmental and somatic dysfunction of pelvic region Segmental and somatic dysfunction of cervical region Segmental and somatic dysfunction of thoracic region Segmental and somatic dysfunction of lumbar region 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 Surgical History History of breast surgery History of hysterectomy History of bunionectomy of left great toe History of total right knee replacement (TKR) Hx of arthroscopy of right knee Hx of eye surgery Hx of adenoidectomy Hx of tonsillectomy Family History Grandfather Arthritis Grandmother Arthritis Aunt Breast cancer Diabetes Father Cancer Rectal Mother Cancer Thyroid Uncle Diabetes Brother Heart disease Social History Smoking Status: Former smoker pack-years: 3 Tobacco: How many years used: 15 alcohol intake: current alcohol intake frequency: holidays/special occasions only substance use type: does not use what type of physical activity do you participate in: walking and yoga frequency: 1-2 times per week seatbelt use: always HPI dry needling/adjustment Chief Complaint: neck, upper, left low back pain Visit Number: 1 Details: Rachelle is a 69 year old female here to f/u with ongoing neck, upper back/shoulder blade, and left low back pain. Pt continues to experience pain and tightness on the left side of her neck, her left shoulder, and left low back. She reports frequent headaches and some limited ROM in her neck. She rates her overall pain 4/10. She states the holidays and cold weather have contributed to her pain and soreness. She continues to do yoga to stay flexible and help ease her discomfort. She denies new injury, numbness or tingling. Pt. reports adjustments, and dry needling are helpful in relieving her pain and discomfort but it gradually returns. Location: neck/back Duration: frequent Aggravating or associated factors: lifting, walking, ADL's Relieving factors: chiro Pain Quality: aching, dull and radiating Exam Musc General: Yes normal gait, joint tenderness and decreased range of motion; No normal posture or muscle weakness Cervical Spine: Yes loss of normal cervical lordosis, Yes cervical muscular tenderness left greater than right lower , Yes cervical spasm left upper intrinsics, left greater than right diffuse trapezius and paracervical muscles, Yes Trigger (trap) and Yes misalignment misalignment: C5, C6 and C7 Thoracic/Lumber: Yes thoracic and lumbar spine normal to inspection, Yes paraspinal tenderne (more content not included)... Normal [facility] Chiropractic Reporton 2023 Chiropractic Report [facility] [address] [place] [address] OFFICE VISIT Date of Service: 10/29/24 MR#: [id number] Acct: [id number] Name: RACHELLE CHAMPION Rep #: [id number] : 1955 Provider: GARCIA Roy Age/Sex: 69/F Location: [facility] Status: Signed Intake Vital Signs 05/21/24 11:11 09/03/24 18:51 Height 5 ft 8 in 5 ft 8 in Intake Visit Reasons: dry needling/adjustment Chief Complaint: neck, upper and left low back pain Is patient in pain?: Yes (neck low back ) Pain scale (1-10): 3 Allergies Penicillins Allergy (Mild, Verified 10/29/24 13:08) itching Seasonal Allergies: Uncoded Allergy (Verified 10/29/24 13:08) Other Medications ???Medication ???Instructions ???Recorded ???Confirmed ???Type antiarthritic combination no.2 900 900 mg PO DAILY arthritis 06/17/22 09/03/24 History mg tablet (glucosamine-chondro itin) cinnamon bark 500 mg capsule 500 mg PO DAILY 06/17/22 09/03/24 History (Cinnamon) coenzyme Q10 100 mg capsule 100 mg PO DAILY 06/17/22 09/03/24 History (CoQ-10) magnesium 30 mg tablet 30 mg PO DAILY 06/17/22 09/03/24 History multivitamin 1 tab PO DAILY 06/17/22 09/03/24 History omega 3-jkp-wzx-fish oil 300 1 cap PO DAILY 06/17/22 09/03/24 History mg-1,000 mg capsule (Fish Oil) Hydrocortisone 2.5%/lidocaine 5% #30 ea 07/11/23 09/03/24 Rx suppository (cmpd) atorvastatin 10 mg tablet 10 mg PO DAILY 07/11/23 09/03/24 History cholecalciferol (vitamin D3) 75 50 mcg PO DAILY 07/11/23 09/03/24 History mcg (3,000 unit) tablet levothyroxine 25 mcg capsule 137 mcg PO DAILY 07/11/23 09/03/24 History loratadine 10 mg tablet (Claritin) 10 mg PO DAILY 07/11/23 09/03/24 History trazodone 50 mg tablet 50 mg PO QHS PRN insomnia 07/11/23 09/03/24 History escitalopram oxalate 20 mg tablet 20 mg PO DAILY 08/30/23 09/03/24 History Have you fallen in the past year?: No PFSH Medical History Acute sinusitis, unspecified Hemorrhoids Degenerative disc disease, cervical History of benign neoplasm of bone Depression Anxiety Arthritis Hypothyroidism Cervical pain Segmental and somatic dysfunction of pelvic region Segmental and somatic dysfunction of cervical region Segmental and somatic dysfunction of thoracic region Segmental and somatic dysfunction of lumbar region 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 Surgical History History of breast surgery History of hysterectomy History of bunionectomy of left great toe History of total right knee replacement (TKR) Hx of arthroscopy of right knee Hx of eye surgery Hx of adenoidectomy Hx of tonsillectomy Family History Grandfather Arthritis Grandmother Arthritis Aunt Breast cancer Diabetes Father Cancer Rectal Mother Cancer Thyroid Uncle Diabetes Brother Heart disease Social History Smoking Status: Former smoker pack-years: 3 Tobacco: How many years used: 15 alcohol intake: current alcohol intake frequency: holidays/special occasions only substance use type: does not use what type of physical activity do you participate in: walking and yoga frequency: 1-2 times per week seatbelt use: always HPI dry needling/adjustment Chief Complaint: neck, upper, left low back pain Visit Number: 13 Details: Rachelle is a 69 year old female here to f/u with ongoing neck, upper back/shoulder blade, and left low back pain. Pt continues to c/o pain and tightness on the left side of her neck and her left shoulder. She advises that she does get frequent headaches and has some limited ROM in her neck. She also complains of pain and stiffness in her L low back but denies any radiculopathy into her leg at this time. She rates her overall pain 3/10. She continues to do yoga to stay flexible and help ease her discomfort. She denies new injury, numbness or tingling. Pt. reports adjustments, and dry needling are helpful in relieving her pain and discomfort but it gradually returns. Location: neck/back Duration: frequent Aggravating or associated factors: lifting, walking, ADL's Relieving factors: chiro Pain Quality: aching, dull and radiating Exam Musc General: Yes normal gait, joint tenderness and decreased range of motion; No normal posture or muscle weakness Cervical Spine: Yes loss of normal cervical lordosis, Yes cervical muscular tenderness left greater than right lower , Yes cervical spasm left upper intrinsics, left greater than right diffuse trapezius and paracervical muscles, Yes Trigger (trap) and Yes misalignment misalignment: C5, C6 and C7 Thoracic/Lumber: Yes thoracic and lumbar spi (more content not included)... Normal [facility] Chiropractic Reporton 2023 Chiropractic Report [facility] [address] [place] [address] OFFICE VISIT Date of Service: 10/01/24 MR#: [id number] Acct: [id number] Name: RACHELLE CHAMPION Rep #: [id number] : 1955 Provider: GARCIA Roy Age/Sex: 69/F Location: [facility] Status: Signed Intake Vital Signs 05/21/24 11:11 09/03/24 18:51 Height 5 ft 8 in 5 ft 8 in Intake Visit Reasons: dry needling/adjustment Chief Complaint: neck, upper and left low back pain Is patient in pain?: Yes Pain scale (1-10): 4 Allergies Penicillins Allergy (Mild, Verified 10/01/24 14:06) itching Seasonal Allergies: Uncoded Allergy (Verified 10/01/24 14:06) Other Have you fallen in the past year?: No PFSH Medical History Acute sinusitis, unspecified Hemorrhoids Degenerative disc disease, cervical History of benign neoplasm of bone Depression Anxiety Arthritis Hypothyroidism Cervical pain Segmental and somatic dysfunction of pelvic region Segmental and somatic dysfunction of cervical region Segmental and somatic dysfunction of thoracic region Segmental and somatic dysfunction of lumbar region 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 Surgical History History of breast surgery History of hysterectomy History of bunionectomy of left great toe History of total right knee replacement (TKR) Hx of arthroscopy of right knee Hx of eye surgery Hx of adenoidectomy Hx of tonsillectomy Family History Grandfather Arthritis Grandmother Arthritis Aunt Breast cancer Diabetes Father Cancer Rectal Mother Cancer Thyroid Uncle Diabetes Brother Heart disease Social History Smoking Status: Former smoker pack-years: 3 Tobacco: How many years used: 15 alcohol intake: current alcohol intake frequency: holidays/special occasions only substance use type: does not use what type of physical activity do you participate in: walking and yoga frequency: 1-2 times per week seatbelt use: always HPI dry needling/adjustment Chief Complaint: neck, upper, left low back pain Visit Number: 12 Details: Rachelle is a 69 year old female here to f/u with ongoing neck, upper back/shoulder blade, and left low back pain. Pt has c/o pain and tightness in her neck that is especially worse on the L side and radiates down into her L shoulder which becomes very sore. She advises that she does get frequent headaches and has some limited ROM in her neck. She also has c/o pain and stiffness in her L low back but denies any radiculopathy into her leg at this time. She rates her pain 4/10. She continues to do yoga to stay flexible and help ease her discomfort. She denies new injury, numbness or tingling. Pt. reports adjustments, and dry needling are helpful in relieving her pain and discomfort. Location: neck/back Duration: frequent Aggravating or associated factors: lifting, walking, ADL's Relieving factors: chiro Pain Quality: aching, dull and radiating Exam Musc General: Yes normal gait, joint tenderness and decreased range of motion; No normal posture or muscle weakness Cervical Spine: Yes loss of normal cervical lordosis, Yes cervical muscular tenderness left greater than right lower , Yes cervical spasm left upper intrinsics, left greater than right diffuse trapezius and paracervical muscles, Yes Trigger (cervical multifidi,trap) and Yes misalignment misalignment: C5, C6 and C7 Thoracic/Lumber: Yes thoracic and lumbar spine normal to inspection, Yes paraspinal tenderness on the left greater than right (upper thoracic,lumbopelvic ), Yes thoraco-lumbar spasm on the left greater than right (QL, glute med, trap, rhomboid), Yes Trigger (L trap ,L rhomboid) and Yes misalignment T3, T4, T5, T6, L3, L4, L5, RIL and LIL Sacroiliac joints: bilaterally tender to palpation Office Procedures Procedures - Chiropractic Procedures Manipulation: Cervical C5, Lumbar L4, Thoracic T3 and T6 and Pelvis LIL Manipulation: 3-4 regions Patient Response: positive Dry Needling Patient Position: Prone Patient Instructions/Consent : Patient instructed not to move and informed of risks of moving. Risks associated with the procedure and the specific location were reviewed with the patient and consent was obtained. Procedure: The LEFT: cervical multifidi,trap, rhomboid was located by palpation. The skin and surrounding area was inspected and found to be free of any defects. The area was cleaned and prepped. Needle insertion and withdraw was performed. Pressure was applied to areas if needed. Needle Number: [id number] Minutes: 20 Therapy Performed by: Dr. Washington (more content not included)... Normal [facility] [facility] Basic Metabolic Profile (BMP )on 09-10-2024 BUN/CRE 18.0 RATIO Normal 09-02 [facility] Comment on above: Order Comment: N Performed By: #### L 501.40323, L506.0400, L501.9520, L500.2500 #### [facility] [address] [place], [address] CA,Total 8.7 mg/dL Normal 8.5-10.1 [facility] Comment on above: Order Comment: N Performed By: #### L 501.47752, L506.0400, L501.9520, L500.2500 #### [facility] [address] [place], [address] Chloride [Moles/Vol] 106 mmol/L Normal 98-107 [facility] Comment on above: Order Comment: N Performed By: #### L 501.66710, L506.0400, L501.9520, L500.2500 #### [facility] [address] [place], [address] CO2 [Moles/Vol] 28.0 mmol/L Normal 21.0-32.0 [facility] Comment on above: Order Comment: N Performed By: #### L 501.36045, L506.0400, L501.9520, L500.2500 #### [facility] [address] [place], [address] Creatinine [Mass/Vol] 0.78 mg/dL Normal 0.55-1.02 [facility] Comment on above: Order Comment: N Result Comment: The validity of the calculated GFR GFRAA in patients over 70 years has not been determined. Clinical correlation is essential. Performed By: #### L 501.24070, L506.0400, L501.9520, L500.2500 #### [facility] [address] [place], [address] EST GFR - AA 95 mL/min Normal >60 [facility] Comment on above: Order Comment: N Result Comment: Afri can Trinidadian GFR Calc Performed By: #### L 501.30647, L506.0400, L501.9520, L500.2500 #### [facility] [address] [place], [address] GAP 4 Low 5-15 [facility] Comment on above: Order Comment: N Performed By: #### L 501.69918, L506.0400, L501.9520, L500.2500 #### [facility] [address] [place], [address] GFR/1.73 sq M.predicted among non-blacks MDRD (S/P/Bld) [Vol rate/Area] 79 mL/min/{1.73_m2} Normal >60 [facility] Comment on above: Order Comment: N Result Comment: Non- GFR Calc Performed By: #### L 501.61446, L506.0400, L501.9520, L500.2500 #### [facility] [address] [place], [address] Glucose [Mass/Vol] 91 mg/dL Normal 74-[address] [facility] Comment on above: Order Comment: N Performed By: #### L 501.85556, L506.0400, L501.9520, L500.2500 #### [facility] [address] [place], [address] Potassium [Moles/Vol] 3.8 mmol/L Normal 3.5-5.1 [facility] Comment on above: Order Comment: N Performed By: #### L 501.56056, L506.0400, L501.9520, L500.2500 #### [facility] [address] [place], [address] Sodium [Moles/Vol] 138 mmol/L Normal 136-[address] [facility] Comment on above: Order Comment: N Performed By: #### L 501.74553, L506.0400, L501.9520, L500.2500 #### [facility] [address] [place], [address] Urea nitrogen [Mass/Vol] 14 mg/dL Normal 7-18 [facility] Comment on above: Order Comment: N Performed By: #### L 501.50453, L506.0400, L501.9520, L500.2500 #### [facility] [address] [place], [address] Free T3on 09-10-2024 Free T3 [Mass/Vol] 2.0 pg/mL Low 2.18-3.[address] [facility] Comment on above: Order Comment: N Performed By: #### L 501.66608, L506.0400, L501.9520, L500.2500 #### [facility] [address] [place], [address] T4 Free Directon 09-10-2024 T4 FREE DIRECT 0.95 ng/dL Normal 0.76-1.46 [facility] Comment on above: Order Comment: N Performed By: #### L 501.58815, L506.0400, L501.9520, L500.2500 #### [facility] [address] [place], [address] Thyroid Stim Hormone (TSH)on 09-10-2024 TSH 3.920 uIU/mL High 0.358-3.740 [facility] Comment on above: Order Comment: N Performed By: #### L 501.14625, L506.0400, L501.9520, L500.2500 #### [facility] [address] [place], [address] 12 Lead EKGon 09-03-2024 12 Lead EKG [facility] [address] [place] [address] 12 Lead EKG 09/03/24 1854 MR#: [id number] Acct: [id number] Name: RACHELLE CHAMPION Rep #: [id number] : 1955 69 From: Montana Carlisle MD Attending Dr: Status: DEP ER Ordering Dr: Gaston Sanchez DO Date: 09/03/24 Location: ED Sex: F C Admitted: Test Reason : CP Blood Pressure : / mmHG Vent. Rate : 097 BPM Atrial Rate : 097 BPM P-R Int : 150 ms QRS Dur : 086 ms QT Int : 360 ms P-R-T Axes : 057 -36 035 degrees QTc Int : 457 ms Normal sinus rhythm Left axis deviation Moderate voltage criteria for LVH, may be normal variant ( R in aVL , Juan Luis product ) Abnormal ECG Confirmed by MONTANA CARLISLE MD ([id number]), slot editor ROSALIA PHELPS ([id number]) on 09/05/2024 10:05:25 AM Referred By: Confirmed By:MONTANA CARLISLE MD 09/05/24 1005 Date Montana Carlisle MD CC: Dr. Yonatan Thompson MD; Dr. Gaston Sanchze DO Signed Normal [facility] BNP,B-Type NATRIURETIC PEPTI Geoff 09-03-2024 Natriuretic peptide B (Bld) [Mass/Vol] 16.7 pg/mL Normal 0-100 [facility] Comment on above: Performed By: #### L 503.6620, L300.8000 ####[facility] [address] [place], [address] Basic Metabolic Profile (BMP )on 09-03-2024 BUN/CRE 19.7 RATIO Normal - [facility] Comment on above: Order Comment: 1Y Performed By: #### L 100.0100, L500.2500, L501.5425 ####[facility] [address] [place], [address] CA,Total 9.0 mg/dL Normal 8.5-10.1 [facility] Comment on above: Order Comment: 1Y Performed By: #### L 100.0100, L500.2500, L501.5425 ####[facility] [address] [place], [address] Chloride [Moles/Vol] 103 mmol/L Normal 98-107 [facility] Comment on above: Order Comment: 1Y Performed By: #### L 100.0100, L500.2500, L501.5425 ####[facility] [address] [place], [address] CO2 [Moles/Vol] 29.0 mmol/L Normal 21.0-32.0 [facility] Comment on above: Order Comment: 1Y Performed By: #### L 100.0100, L500.2500, L501.5425 ####[facility] [address] [place], [address] Creatinine [Mass/Vol] 0.91 mg/dL Normal 0.55-1.02 [facility] Comment on above: Order Comment: 1Y Result Comment: The validity of the calculated GFR GFRAA in patients over 70 years has not been determined. Clinical correlation is essential. Performed By: #### L 100.0100, L500.2500, L501.5425 ####[facility] [address] [place], [address] ECRCL 71.24 ml/min Normal [facility] Comment on above: Order Comment: 1Y Performed By: #### L 100.0100, L500.2500, L501.5425 ####[facility] [address] [place], [address] EST GFR - AA 79 mL/min Normal >60 [facility] Comment on above: Order Comment: 1Y Result Comment: Afri can Trinid[place] GFR Calc Performed By: #### L 100.0100, L500.2500, L501.5425 ####[facility] [address] [place], [address] GAP 6 Normal 5-15 [facility] Comment on above: Order Comment: 1Y Performed By: #### L 100.0100, L500.2500, L501.5425 ####[facility] [address] [place], [address] GFR/1.73 sq M.predicted among non-blacks MDRD (S/P/Bld) [Vol rate/Area] 65 mL/min/{1.73_m2} Normal >60 [facility] Comment on above: Order Comment: 1Y Result Comment: Non- GFR Calc Performed By: #### L 100.0100, L500.2500, L501.5425 ####[facility] [address] [place], [address] Glucose [Mass/Vol] 150 mg/dL High 74-[address] [facility] Comment on above: Order Comment: 1Y Result Comment: Fast ing Glucose result greater than or equal to 126 mg/dL suggests DIABETES MELLITUS per A.D.A. criteria. Performed By: #### L 100.0100, L500.2500, L501.5425 ####[facility] [address] [place], [address] Potassium [Moles/Vol] 3.9 mmol/L Normal 3.5-5.1 [facility] Comment on above: Order Comment: 1Y Performed By: #### L 100.0100, L500.2500, L501.5425 ####[facility] [address] [place], [address] Sodium [Moles/Vol] 138 mmol/L Normal 136-[address] [facility] Comment on above: Order Comment: 1Y Performed By: #### L 100.0100, L500.2500, L501.5425 ####[facility] [address] [place], [address] Urea nitrogen [Mass/Vol] 18 mg/dL Normal 7-18 [facility] Comment on above: Order Comment: 1Y Performed By: #### L 100.0100, L500.2500, L501.5425 ####[facility] [address] [place], [address] CBC W/Diff, Automatedon 10-2 -2023 Absolute Lymph 2.20 X10 3/uL Normal 0.83-4.51 [facility] Comment on above: Performed By: #### L 100.0100, L500.2500, L501.5425 ####[facility] [address] [place], [address] Absolute Neut 4.8 X10 3/uL Normal 2.0-7.7 [facility] Comment on above: Performed By: #### L 100.0100, L500.2500, L501.5425 ####[facility] [address] [place], [address] Basophils/100 WBC (Bld) 0.9 % Normal 0-1 [facility] Comment on above: Performed By: #### L 100.0100, L500.2500, L501.5425 ####[facility] [address] [place], [address] Eosinophils/100 WBC (Bld) 3.2 % Normal 0-5 [facility] Comment on above: Performed By: #### L 100.0100, L500.2500, L501.5425 ####[facility] [address] [place], [address] Erythrocyte distribution width (RBC) [Ratio] 13.8 % Normal 11.6-14.6 [facility] Comment on above: Performed By: #### L 100.0100, L500.2500, L501.5425 ####[facility] [address] [place], [address] Hematocrit (Bld) [Volume fraction] 40.1 % Normal 37-47 [facility] Comment on above: Performed By: #### L 100.0100, L500.2500, L501.5425 ####[facility] [address] [place], [address] Hemoglobin (Bld) [Mass/Vol] 12.9 g/dL Normal 12.0-15.0 [facility] Comment on above: Performed By: #### L 100.0100, L500.2500, L501.5425 ####[facility] [address] [place], [address] IG% 0.400 Normal 0.0-0.9 [facility] Comment on above: Result Comment: IG% - Immature Granulocytes (promyelocytes, myelocytes and metamyelocytes) > 1% indicates that a LEFT SHIFT is Present. Performed By: #### L 100.0100, L500.2500, L501.5425 ####[facility] [address] [place], [address] Lymphocytes/100 WBC (Bld) 27.7 % Normal 19-41 [facility] Comment on above: Performed By: #### L 100.0100, L500.2500, L501.5425 ####[facility] [address] [place], [address] MCH (RBC) [Entitic mass] 30.6 pg Normal 27.0-32.0 [facility] Comment on above: Performed By: #### L 100.0100, L500.2500, L501.5425 ####[facility] [address] [place], [address] MCHC (RBC) [Mass/Vol] 32.2 g/dL Normal 32-36 [facility] Comment on above: Performed By: #### L 100.0100, L500.2500, L501.5425 ####[facility] [address] [place], [address] MCV (RBC) [Entitic vol] 95.0 fL Normal 81-99 [facility] Comment on above: Performed By: #### L 100.0100, L500.2500, L501.5425 ####[facility] [address] [place], [address] Monocytes/100 WBC (Bld) 7.8 % Normal 0-10 [facility] Comment on above: Performed By: #### L 100.0100, L500.2500, L501.5425 ####[facility] [address] [place], [address] Neutrophils/100 WBC (Bld) 60.0 % Normal 47-70 [facility] Comment on above: Performed By: #### L 100.0100, L500.2500, L501.5425 ####[facility] [address] [place], [address] Nucleated RBC (Bld) [#/Vol] 0 10*3/uL Normal 0-5 [facility] Comment on above: Performed By: #### L 100.0100, L500.2500, L501.5425 ####[facility] [address] [place], [address] Platelet mean volume (Bld) [Entitic vol] 9.6 fL Normal 6.2-12.0 [facility] Comment on above: Performed By: #### L 100.0100, L500.2500, L501.5425 ####[facility] [address] [place], [address] Platelets (Bld) [#/Vol] 275 10*3/uL Normal 150-450 [facility] Comment on above: Performed By: #### L 100.0100, L500.2500, L501.5425 ####[facility] [address] [place], [address] RBC (Bld) [#/Vol] 4.22 10*6/uL Normal 4.2-5.4 [facility] Comment on above: Performed By: #### L 100.0100, L500.2500, L501.5425 ####[facility] [address] [place], [address] RDW SD 47.8 fl High 35.1-43.9 [facility] Comment on above: Performed By: #### L 100.0100, L500.2500, L501.5425 ####[facility] [address] [place], [address] WBC (Bld) [#/Vol] 7.9 10*3/uL Normal 4.4-11.[address] [facility] Comment on above: Performed By: #### L 100.0100, L500.2500, L501.5425 ####[facility] [address] [place], [address] Chest 1 View (Portable)on Chest 1 View (Portable) [facility] Services [address] [place] [address] Chest 1 View (Portable) MR#: [id number] Acct: [id number] Name: RACHELLE CHAMPION Rep #: [id number] : 1955 F 69 From: Osmin Acuña DO PCP: Dr. Yonatan Thompson MD Status: [facility] ER Study: Chest 1 View (Portable) Date of Exam: 09/03/24 Exam# [id number] Ordering Dr: Gaston Sanchez DO [id number] INDICATION: chest pain EXAMINATION/TECHNIQU E: X-RAY - XR Chest 1 View COMPARISON: February 15, 2018 ____ FINDINGS: LINES/DEVICES: None. LUNGS: No consolidation, edema or effusion. No pneumothorax. MEDIASTINUM AND CARDIOVASCULAR STRUCTURES: Cardiac silhouette not enlarged. Central airways and mediastinal contour are unremarkable. BONES AND SOFT TISSUES: Unremarkable. RAD/Chest 1 View (Portable) IMPRESSION: No radiographic evidence of acute cardiopulmonary disease. Electronically Signed: Osmin Acuña DO at 20:59 EDT Reading Location ID and State: [facility] [place] [facility] [place] Tel [phone], Service support , CC: Dr. Yonatan Thompson MD; Dr. Gaston Sanchez DO Belt Splicer: Signed Normal [facility] Chiropractic Reporton 2023 Chiropractic Report [facility] [address] [place] [address] OFFICE VISIT Date of Service: 09/03/24 MR#: [id number] Acct: [id number] Name: RACHELLE CHAMPION Rep #: [id number] : 1955 Provider: GARCIA Montgomery Do ssi Age/Sex: 69/F Location: [facility] Status: Signed Intake Vital Signs 05/21/24 11:11 Height 5 ft 8 in Weight: 195 lb BMI 29.6 BP 132/96 H Blood Pressure Location Lt brachial Position Sitting Respiration 16 Pulse 86 Pulse Source Monitor Temp 97.8 F Temp Source Temporal Pulse Oximetry (%) 98 Oxygen Delivery Method room air Intake Visit Reasons: dry needling/adjustment Chief Complaint: neck, upper and left low back pain Is patient in pain?: Yes (left low back ) Pain scale (1-10): 4 Allergies Penicillins Allergy (Mild, Verified 09/03/24 13:52) itching Seasonal Allergies: Uncoded Allergy (Verified 09/03/24 13:52) Other Medications ???Medication ???Instructions ???Recorded ???Confirmed ???Type antiarthritic combination no.2 900 mg PO 06/17/22 09/03/24 History mg tablet (glucosamine-chondro itin) cinnamon bark 500 mg capsule 500 mg PO DAILY 06/17/22 09/03/24 History (Cinnamon) coenzyme Q10 100 mg capsule 100 mg PO DAILY 06/17/22 09/03/24 History (CoQ-10) flaxseed oil 5 ml miscellaneous BID 06/17/22 09/03/24 History magnesium 30 mg tablet 30 mg PO DAILY 06/17/22 09/03/24 History multivitamin 1 tab PO DAILY 06/17/22 09/03/24 History omega 4-xqh-unj-fish oil 300 1 cap PO DAILY 06/17/22 09/03/24 History mg-1,000 mg capsule (Fish Oil) Hydrocortisone 2.5%/lidocaine 5% #30 ea 07/11/23 09/03/24 Rx suppository (cmpd) atorvastatin 10 mg tablet 10 mg PO DAILY 07/11/23 09/03/24 History cholecalciferol (vitamin D3) 75 50 mcg PO DAILY 07/11/23 09/03/24 History mcg (3,000 unit) tablet hydrocortisone 2.5 % topical cream 1 applic RI QD-BID 07/11/23 09/03/24 History with perineal applicator (Proctosol HC) levothyroxine 25 mcg capsule 137 mcg PO 07/11/23 09/03/24 History loratadine 10 mg tablet (Claritin) 10 mg PO DAILY 07/11/23 09/03/24 History trazodone 50 mg tablet 50 mg PO QHS PRN 07/11/23 09/03/24 History escitalopram oxalate 20 mg tablet mg PO 08/30/23 09/03/24 History levofloxacin 500 mg tablet 500 mg PO DAILY #7 tabs 08/30/23 09/03/24 Rx benzonatate 200 mg capsule 200 mg PO TID PRN cough #20 caps 05/21/24 09/03/24 Rx levofloxacin 500 mg tablet 500 mg PO DAILY #7 tabs 05/21/24 09/03/24 Rx Have you fallen in the past year?: No PFSH Medical History Acute sinusitis, unspecified Hemorrhoids Degenerative disc disease, cervical History of benign neoplasm of bone Depression Anxiety Arthritis Hypothyroidism Cervical pain Segmental and somatic dysfunction of pelvic region Segmental and somatic dysfunction of cervical region Segmental and somatic dysfunction of thoracic region Segmental and somatic dysfunction of lumbar region 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 Surgical History History of breast surgery History of hysterectomy History of bunionectomy of left great toe History of total right knee replacement (TKR) Hx of arthroscopy of right knee Hx of eye surgery Hx of adenoidectomy Hx of tonsillectomy Family History Grandfather Arthritis Grandmother Arthritis Aunt Breast cancer Diabetes Father Cancer Rectal Mother Cancer Thyroid Uncle Diabetes Brother Heart disease Social History Smoking Status: Former smoker pack-years: 3 Tobacco: How many years used: 15 alcohol intake: current alcohol intake frequency: holidays/special occasions only substance use type: does not use what type of physical activity do you participate in: walking and yoga frequency: 1-2 times per week seatbelt use: always HPI dry needling/adjustment Chief Complaint: neck,Upper, left low back pain Visit Number: 11 Details: Rachelle is a 69 year old female here to f/u with ongoing neck, upper back/shoulder blade, and left low back pain. Pt. advises her neck and upper back pain continues to improve. She c/o mild left low back pain. She states it is worse in the morning and eases up some as the day goes on. She rates her pain 4/10. She also c/o left shoulder tenderness. She continues to do yoga to stay flexible and help ease her discomfort. She denies new injury, numbness, tingling or radiculopathy. Pt. reports adjustments, and dry needling are helpful in relieving her pain and discomfort. Location: neck/back Duration: frequent Aggravating or associated factors: lifting, walking, ADL's Relieving factors: c (more content not included)... Normal [facility] D-Dimer Quantitative (DVT/PE )on 09-03-2024 D-DIMER QUANT 0.48 FEU/ug/m Normal 0.27-0.49 [facility] Comment on above: Result Comment: NORM AL D-Dimer level (<0.50) indicates no DVT or PE. Performed By: #### L 770.7061, L300.8000 ####[facility] [address] [place], [address] Emergency Department Summary on 09-03-2024 Emergency Department Summary [facility] Medical Records Department [address] [place] [address] Emergency Department Summary 09/03/24 MR#: [id number] Acct: [id number] Name: RACHELLE CHAMPION Rep #: [id number] : 1955 69 From: Gaston Sanchez DO PCP: Dr. Yonatan Thompson MD Status:DEP ER Location: ED HPI History of Present Illness Chief Complaint: Chest Pain [facility] Medical History Acute sinusitis, unspecified Hemorrhoids Degenerative disc disease, cervical History of benign neoplasm of bone Depression Anxiety Arthritis Hypothyroidism Cervical pain Segmental and somatic dysfunction of pelvic region Segmental and somatic dysfunction of cervical region Segmental and somatic dysfunction of thoracic region Segmental and somatic dysfunction of lumbar region 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 Home Medications ???Medication ???Instructions ???Recorded ???Last Taken ???Type antiarthritic combination no.2 900 900 mg PO DAILY arthritis 06/17/22 09/02/24 History mg tablet (glucosamine-chondro itin) cinnamon bark 500 mg capsule 500 mg PO DAILY 06/17/22 Unknown History (Cinnamon) coenzyme Q10 100 mg capsule 100 mg PO DAILY 06/17/22 Unknown History (CoQ-10) magnesium 30 mg tablet 30 mg PO DAILY 06/17/22 Unknown History multivitamin 1 tab PO DAILY 06/17/22 09/02/24 History omega 5-kkv-vdp-fish oil 300 1 cap PO DAILY 06/17/22 09/02/24 History mg-1,000 mg capsule (Fish Oil) Hydrocortisone 2.5%/lidocaine 5% #30 ea 07/11/23 Unknown Rx suppository (cmpd) atorvastatin 10 mg tablet 10 mg PO DAILY 07/11/23 09/03/24 History cholecalciferol (vitamin D3) 75 50 mcg PO DAILY 07/11/23 09/02/24 History mcg (3,000 unit) tablet levothyroxine 25 mcg capsule 137 mcg PO DAILY 07/11/23 Unknown History loratadine 10 mg tablet (Claritin) 10 mg PO DAILY 07/11/23 09/03/24 History trazodone 50 mg tablet 50 mg PO QHS PRN insomnia 07/11/23 09/02/24 History escitalopram oxalate 20 mg tablet 20 mg PO DAILY 08/30/23 09/02/24 History Allergy/AdvReac Type Severity Reaction Status Date / Time Penicillins Allergy Mild itching Verified 09/03/24 18:53 Seasonal Allergies: Uncoded Allergy Other Verified 09/03/24 18:53 Family History Grandfather Arthritis Grandmother Arthritis Aunt Breast cancer Diabetes Father Cancer Rectal Mother Cancer Thyroid Uncle Diabetes Brother Heart disease Surgical History History of breast surgery History of hysterectomy History of bunionectomy of left great toe History of total right knee replacement (TKR) Hx of arthroscopy of right knee Hx of eye surgery Hx of adenoidectomy Hx of tonsillectomy Social History Smoking Status: Former smoker pack-years: 3 Tobacco: How many years used: 15 alcohol intake: current alcohol intake frequency: holidays/special occasions only substance use type: does not use what type of physical activity do you participate in: walking and yoga frequency: 1-2 times per week seatbelt use: always EXAM Physical Exam Const Vital Signs: 09/03/24 18:51 09/03/24 18:51 09/03/24 19:13 Temperature 98.2 F Temperature Source Oral Pulse Rate 104 H Respiratory Rate 18 Respiratory Effort Normal Blood Pressure 143/81 H Blood Pressure Mean 101 Pulse Ox 100 96 Oxygen Delivery Method Room Air Room Air 09/03/24 19:51 09/03/24 20:00 09/03/24 20:57 Temperature Temperature Source Pulse Rate 94 89 85 Respiratory Rate 15 17 16 Respiratory Effort Blood Pressure 146/81 H 139/87 H 140/88 H Blood Pressure Mean 102 104 105 Pulse Ox 96 94 96 Oxygen Delivery Method Room Air Room Air Room Air 09/03/24 21:12 Temperature Temperature Source Pulse Rate 81 Respiratory Rate Respiratory Effort Blood Pressure 138/79 H Blood Pressure Mean 98 Pulse Ox Oxygen Delivery Method Room Air MDM MDM MDM Narrative Medical decision making narrative: HISTORY OF PRESENT ILLNESS: 69-year-old female presents with sudden onset of chest pain that radiates to her back. She notes this occurred during exertion when moving boxes proximate hours ago. She notes associated dizziness and diaphoresis. Notes she did not drink or eat enough today. No she is moving her mother the whole weekend. No she felt better after drinking p.o. fluids. The patient denies recent surgery in the last 4 weeks or immobilization in the last 3 days, denies previous diagnosis of DVT or PE, hemoptysis, unilateral leg swelling or malignancy with treatment the last 6 months or palliative. No estrogen use noted. Patient denie (more content not included)... Normal [facility] L501.4020on 09-03-2024 TROPONIN-I HS 5 pg/mL Normal 3.0-54.0 [facility] Comment on above: Result Comment: Plea se Note: New Test Units and Gender Specific Reference Ranges. For more information see Policy Stat Procedure [place] High Sensitivity Troponin (TNIH) and attachments. Performed By: #### L 501.82441, L506.0400, L501.9520, L500.2500 #### [facility] [address] [facility] [place], [place], [id number] L501.5425on 09-03-2024 TROPONIN-I HS 4 pg/mL Normal 3.0-54.0 [facility] Comment on above: Order Comment: 1Y Result Comment: Plea se Note: New Test Units and Gender Specific Reference Ranges. For more information see Policy Stat Procedure [place] High Sensitivity Troponin (TNIH) and attachments. Performed By: #### L 100.0100, L500.2500, L501.5425 ####[facility] [address] [facility] [place], [address] Chiropractic Reporton 2023 Chiropractic Report [facility] [place] [address] OFFICE VISIT Date of Service: 08/06/24 MR#: [id number] Acct: [id number] Name: RACHELLE CHAMPION Rep #: [id number] : 1955 Provider: GARCIA Montgomery Do ssi Age/Sex: 69/F Location: [facility] Status: Signed Intake Vital Signs 05/21/24 11:11 Height 5 ft 8 in Weight: 195 lb BMI 29.6 BP 132/96 H Blood Pressure Location Lt brachial Position Sitting Respiration 16 Pulse 86 Pulse Source Monitor Temp 97.8 F Temp Source Temporal Pulse Oximetry (%) 98 Oxygen Delivery Method room air Intake Visit Reasons: dry needling/adjustment Chief Complaint: neck and upper back pain Is patient in pain?: Yes (neck, upper and low back ) Pain scale (1-10): 3 Allergies Penicillins Allergy (Mild, Verified 08/06/24 13:07) itching Seasonal Allergies: Uncoded Allergy (Verified 08/06/24 13:07) Other Medications ???Medication ???Instructions ???Recorded ???Confirmed ???Type antiarthritic combination no.2 900 mg PO 06/17/22 08/06/24 History mg tablet (glucosamine-chondro itin) cinnamon bark 500 mg capsule 500 mg PO DAILY 06/17/22 08/06/24 History (Cinnamon) coenzyme Q10 100 mg capsule 100 mg PO DAILY 06/17/22 08/06/24 History (CoQ-10) flaxseed oil 5 ml miscellaneous BID 06/17/22 08/06/24 History magnesium 30 mg tablet 30 mg PO DAILY 06/17/22 08/06/24 History multivitamin 1 tab PO DAILY 06/17/22 08/06/24 History omega 8-gyg-hoy-fish oil 300 1 cap PO DAILY 06/17/22 08/06/24 History mg-1,000 mg capsule (Fish Oil) Hydrocortisone 2.5%/lidocaine 5% #30 ea 07/11/23 08/06/24 Rx suppository (cmpd) atorvastatin 10 mg tablet 10 mg PO DAILY 07/11/23 08/06/24 History cholecalciferol (vitamin D3) 75 50 mcg PO DAILY 07/11/23 08/06/24 History mcg (3,000 unit) tablet hydrocortisone 2.5 % topical cream 1 applic RI QD-BID 07/11/23 08/06/24 History with perineal applicator (Proctosol HC) levothyroxine 25 mcg capsule 137 mcg PO 07/11/23 08/06/24 History loratadine 10 mg tablet (Claritin) 10 mg PO DAILY 07/11/23 08/06/24 History trazodone 50 mg tablet 50 mg PO QHS PRN 07/11/23 08/06/24 History escitalopram oxalate 20 mg tablet mg PO 08/30/23 08/06/24 History levofloxacin 500 mg tablet 500 mg PO DAILY #7 tabs 08/30/23 08/06/24 Rx benzonatate 200 mg capsule 200 mg PO TID PRN cough #20 caps 05/21/24 08/06/24 Rx levofloxacin 500 mg tablet 500 mg PO DAILY #7 tabs 05/21/24 08/06/24 Rx Have you fallen in the past year?: No PFSH Medical History Acute sinusitis, unspecified Hemorrhoids Degenerative disc disease, cervical History of benign neoplasm of bone Depression Anxiety Arthritis Hypothyroidism Cervical pain Segmental and somatic dysfunction of pelvic region Segmental and somatic dysfunction of cervical region Segmental and somatic dysfunction of thoracic region Segmental and somatic dysfunction of lumbar region 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 Surgical History History of breast surgery History of hysterectomy History of bunionectomy of left great toe History of total right knee replacement (TKR) Hx of arthroscopy of right knee Hx of eye surgery Hx of adenoidectomy Hx of tonsillectomy Family History Grandfather Arthritis Grandmother Arthritis Aunt Breast cancer Diabetes Father Cancer Rectal Mother Cancer Thyroid Uncle Diabetes Brother Heart disease Social History Smoking Status: Former smoker pack-years: 3 Tobacco: How many years used: 15 alcohol intake: current alcohol intake frequency: holidays/special occasions only substance use type: does not use what type of physical activity do you participate in: walking and yoga frequency: 1-2 times per week seatbelt use: always HPI dry needling/adjustment Chief Complaint: neck,Upper, left low back pain Visit Number: 10 Details: Rachelle is a 69 year old female here to f/u with ongoing neck, upper back/shoulder blade, and left low back pain. Pt. advises she is seeing some improvement in her neck, upper and low back pain. She states it is a mild, constant 3/10. She also c/o left shoulder tenderness. She continues to do yoga to stay flexible and help decrease her discomfort. She denies new injury, numbness or tingling. Pt. reports adjustments, and dry needling are helpful in relieving her pain and discomfort. Location: neck/back Duration: frequent Aggravating or associated factors: lifting, walking, ADL's Relieving factors: chiro Pain Quality: aching, dull and radiating Exam Musc General: Yes normal ga (more content not included)... Normal [facility] Chiropractic Reporton 2023 Chiropractic Report [facility] [address] [place] [address] OFFICE VISIT Date of Service: 07/09/24 MR#: [id number] Acct: [id number] Name: RACHELLE CHAMPION Rep #: [id number] : 1955 Provider: GARCIA Roy Age/Sex: 69/F Location: [facility] Status: Signed Intake Vital Signs 05/21/24 11:11 Height 5 ft 8 in Weight: 195 lb BMI 29.6 BP 132/96 H Blood Pressure Location Lt brachial Position Sitting Respiration 16 Pulse 86 Pulse Source Monitor Temp 97.8 F Temp Source Temporal Pulse Oximetry (%) 98 Oxygen Delivery Method room air Intake Visit Reasons: dry needling/adjustment Chief Complaint: neck and upper back pain Is patient in pain?: Yes (neck upper back ) Pain scale (1-10): 4 Allergies Penicillins Allergy (Mild, Verified 07/09/24 13:13) itching Seasonal Allergies: Uncoded Allergy (Verified 07/09/24 13:13) Other Medications ???Medication ???Instructions ???Recorded ???Confirmed ???Type antiarthritic combination no.2 900 mg PO 06/17/22 07/09/24 History mg tablet (glucosamine-chondro itin) cinnamon bark 500 mg capsule 500 mg PO DAILY 06/17/22 07/09/24 History (Cinnamon) coenzyme Q10 100 mg capsule 100 mg PO DAILY 06/17/22 07/09/24 History (CoQ-10) flaxseed oil 5 ml miscellaneous BID 06/17/22 07/09/24 History magnesium 30 mg tablet 30 mg PO DAILY 06/17/22 07/09/24 History multivitamin 1 tab PO DAILY 06/17/22 07/09/24 History omega 6-xjb-aha-fish oil 300 1 cap PO DAILY 06/17/22 07/09/24 History mg-1,000 mg capsule (Fish Oil) Hydrocortisone 2.5%/lidocaine 5% #30 ea 07/11/23 07/09/24 Rx suppository (cmpd) atorvastatin 10 mg tablet 10 mg PO DAILY 07/11/23 07/09/24 History cholecalciferol (vitamin D3) 75 50 mcg PO DAILY 07/11/23 07/09/24 History mcg (3,000 unit) tablet hydrocortisone 2.5 % topical cream 1 applic RI QD-BID 07/11/23 07/09/24 History with perineal applicator (Proctosol HC) levothyroxine 25 mcg capsule 137 mcg PO 07/11/23 07/09/24 History loratadine 10 mg tablet (Claritin) 10 mg PO DAILY 07/11/23 07/09/24 History trazodone 50 mg tablet 50 mg PO QHS PRN 07/11/23 07/09/24 History escitalopram oxalate 20 mg tablet mg PO 08/30/23 07/09/24 History levofloxacin 500 mg tablet 500 mg PO DAILY #7 tabs 08/30/23 07/09/24 Rx benzonatate 200 mg capsule 200 mg PO TID PRN cough #20 caps 05/21/24 07/09/24 Rx levofloxacin 500 mg tablet 500 mg PO DAILY #7 tabs 05/21/24 07/09/24 Rx Have you fallen in the past year?: No PFSH Medical History Acute sinusitis, unspecified Hemorrhoids Degenerative disc disease, cervical History of benign neoplasm of bone Depression Anxiety Arthritis Hypothyroidism Cervical pain Segmental and somatic dysfunction of pelvic region Segmental and somatic dysfunction of cervical region Segmental and somatic dysfunction of thoracic region Segmental and somatic dysfunction of lumbar region 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 Surgical History History of breast surgery History of hysterectomy History of bunionectomy of left great toe History of total right knee replacement (TKR) Hx of arthroscopy of right knee Hx of eye surgery Hx of adenoidectomy Hx of tonsillectomy Family History Grandfather Arthritis Grandmother Arthritis Aunt Breast cancer Diabetes Father Cancer Rectal Mother Cancer Thyroid Uncle Diabetes Brother Heart disease Social History Smoking Status: Former smoker pack-years: 3 Tobacco: How many years used: 15 alcohol intake: current alcohol intake frequency: holidays/special occasions only substance use type: does not use what type of physical activity do you participate in: walking and yoga frequency: 1-2 times per week seatbelt use: always HPI dry needling/adjustment Chief Complaint: Upper back pain Visit Number: 9 Details: Rachelle is a 69 year old female here to f/u with ongoing neck, upper back/shoulder blade, and left low back pain. Pt. advises her neck and upper back are a constant nagging pain that is worse on the left side today. She rates her neck/upper back pain 4/10. She also c/o low back is achy and sore. She rates her low back pain 3/10 and states she just returned from a week of traveling which has aggravated her upper and low back pain. She continues to do yoga to stay flexible and help decrease her discomfort. She denies new injury, numbness or tingling. Pt. reports adjustments, and dry needling are helpful in relieving her pain and discomfort. Location: neck/back Duration: frequent Aggravating or associated fact (more content not included)... Normal [facility] Comprehensive Metabolic Prof ilon 06-18-2024 Albumin [Mass/Vol] 3.6 g/dL Normal 3.2-5.[address] [facility] Comment on above: Performed By: #### L 501.9585, L501.64650, L506.0400, L500.4050, L500.4100 ####[facility] [address] [place], [address] Albumin/Globulin [Mass ratio] 1.1 {ratio} Normal 0.9-2.4 [facility] Comment on above: Performed By: #### L 501.9520, L501.56295, L506.0400, L500.4050, L500.4100 ####[facility] [address] [place], [address] ALK P 75 U/L Normal 45-117 [facility] Comment on above: Performed By: #### L 501.9520, L501.81040, L506.0400, L500.4050, L500.4100 ####[facility] [address] [place], [address] ALT [Catalytic activity/Vol] 26 U/L Normal 13-56 [facility] Comment on above: Performed By: #### L 501.9520, L501.37021, L506.0400, L500.4050, L500.4100 ####[facility] [address] [place], [address] AST [Catalytic activity/Vol] 16 U/L Normal 15-37 [facility] Comment on above: Performed By: #### L 501.9520, L501.41235, L506.0400, L500.4050, L500.4100 ####[facility] [address] [place], [address] Bilirubin [Mass/Vol] 0.80 mg/dL Normal 0.20-1.00 [facility] Comment on above: Result Comment: For patients on eltrombopag therapy, use of Dimension [place] TBIL is not recommended. Performed By: #### L 501.9520, L501.76075, L506.0400, L500.4050, L500.4100 ####[facility] [address] [place], [address] BUN/CRE 16.7 RATIO Normal 10-20 [facility] Comment on above: Performed By: #### L 501.9520, L501.71386, L506.0400, L500.4050, L500.4100 ####[facility] [address] [place], [address] CA,Total 8.8 mg/dL Normal 8.5-10.1 [facility] Comment on above: Performed By: #### L 501.9520, L501.60803, L506.0400, L500.4050, L500.4100 ####[facility] [address] [place], [address] Chloride [Moles/Vol] 109 mmol/L High 98-107 [facility] Comment on above: Performed By: #### L 501.9520, L501.57641, L506.0400, L500.4050, L500.4100 ####[facility] [address] [place], [address] CO2 [Moles/Vol] 27.0 mmol/L Normal 21.0-32.0 [facility] Comment on above: Performed By: #### L 501.9520, L501.66849, L506.0400, L500.4050, L500.4100 ####[facility] [address] [place], [address] Creatinine [Mass/Vol] 0.84 mg/dL Normal 0.55-1.02 [facility] Comment on above: Result Comment: The validity of the calculated GFR GFRAA in patients over 70 years has not been determined. Clinical correlation is essential. Performed By: #### L 501.9520, L501.33938, L506.0400, L500.4050, L500.4100 ####[facility] [address] [place], [address] EST GFR - AA 87 mL/min Normal >60 [facility] Comment on above: Result Comment: Afri can Trin[place] GFR Calc Performed By: #### L 501.9520, L501.77103, L506.0400, L500.4050, L500.4100 ####[facility] [address] [place], [address] GAP 7 Normal 5-15 [facility] Comment on above: Performed By: #### L 501.9520, L501.81749, L506.0400, L500.4050, L500.4100 ####[facility] [address] [place], [address] GFR/1.73 sq M.predicted among non-blacks MDRD (S/P/Bld) [Vol rate/Area] 72 mL/min/{1.73_m2} Normal >60 [facility] Comment on above: Result Comment: Non- GFR Calc Performed By: #### L 501.9520, L501.29313, L506.0400, L500.4050, L500.4100 ####[facility] [address] [place], [address] Globulin (S) [Mass/Vol] 3.3 g/dL Normal 2.2-4.2 [facility] Comment on above: Performed By: #### L 501.9520, L501.97520, L506.0400, L500.4050, L500.4100 ####[facility] [address] [place], [address] Glucose [Mass/Vol] 114 mg/dL High 74-[address] [facility] Comment on above: Result Comment: Fast ing Glucose result from 100 to 125 mg/dL suggests IMPAIRED HOMEOSTASIS per A.D.A. criteria. Performed By: #### L 501.9520, L501.97226, L506.0400, L500.4050, L500.4100 ####[facility] [address] [place], [address] Potassium [Moles/Vol] 3.9 mmol/L Normal 3.5-5.1 [facility] Comment on above: Performed By: #### L 501.9520, L501.83998, L506.0400, L500.4050, L500.4100 ####[facility] [address] [place], [address] Sodium [Moles/Vol] 143 mmol/L Normal 136-[address] [facility] Comment on above: Performed By: #### L 501.9520, L501.57772, L506.0400, L500.4050, L500.4100 ####[facility] [address] [place], [address] T PROT 6.9 g/dL Normal 6.4-8.2 [facility] Comment on above: Performed By: #### L 501.9520, L501.78384, L506.0400, L500.4050, L500.4100 ####[facility] [address] [place], [address] Urea nitrogen [Mass/Vol] 14 mg/dL Normal 7-18 [facility] Comment on above: Performed By: #### L 501.9520, L501.20579, L506.0400, L500.4050, L500.4100 ####[facility] [address] [place], [address] Free T3on 06-18-2024 Free T3 [Mass/Vol] 2.2 pg/mL Normal 2.18-3.[address] [facility] Comment on above: Performed By: #### L 501.9520, L501.14930, L506.0400, L500.4050, L500.4100 ####[facility] [address] [place], [address] Lipid Profileon 06-18-2024 Cholesterol [Mass/Vol] 231 mg/dL High 200 [facility] Comment on above: Result Comment: <200 mg/dL Desirable 200-240 mg/dL Borderline >240 mg/dL High Risk Performed By: #### L 501.9520, L501.58435, L506.0400, L500.4050, L500.4100 ####[facility] [address] [place], [address] Cholesterol in HDL [Mass/Vol] 51 mg/dL Normal [facility] Comment on above: Result Comment: The drugs N-Acetylcysteine and Metamizole may falsely depress this assay. Reference Range HDL <40 mg/dL Low HDL Cholesterol HDL >or= 60 mg/dL High HDL Cholesterol Performed By: #### L 501.9520, L501.99136, L506.0400, L500.4050, L500.4100 ####[facility] [address] [place], [address] Cholesterol in LDL [Mass/Vol] 152 mg/dL High 0-130 [facility] Comment on above: Performed By: #### L 501.9520, L501.96776, L506.0400, L500.4050, L500.4100 ####[facility] [address] [place], [address] Cholesterol in VLDL [Mass/Vol] 28 mg/dL Normal 5-40 [facility] Comment on above: Performed By: #### L 501.9520, L501.82207, L506.0400, L500.4050, L500.4100 ####[facility] [address] [place], [address] Triglyceride [Mass/Vol] 142 mg/dL Normal [facility] Comment on above: Result Comment: The drugs N-Acetylcysteine and Metamizole may falsely depress this assay. Serum Triglycerides Reference Interval Normal <150 mg/dL Borderline high 150 - 199 mg/dL High 200 - 499 mg/dL Very High > or = 500 mg/dL Performed By: #### L 501.9520, L501.43021, L506.0400, L500.4050, L500.4100 ####[facility] [address] [place], [address] Shoulder min 2 Viewson 06-18 Shoulder min 2 Views [facility] [address] [place] [address] Shoulder min 2 Views MR#: [id number] Acct: [id number] Name: RACHELLE CHAMPION Rep #: [id number] : 1955 F 69 From: Rex davies MD PCP: Dr. Yonatan Thompson MD Status: REG CLI Study: Shoulder min 2 Views Date of Exam: 06/18/24 Exam# [id number] Ordering Dr: Yonatan Thompson MD [id number] INDICATION: PAIN EXAMINATION/TECHNIQU E: X-RAY - LEFT XR Shoulder Min 2 Views 4 VIEWS COMPARISON: No relevant prior comparison study available ____ FINDINGS: SOFT TISSUES: No soft tissue swelling or gas. No radiopaque foreign body. BONES/JOINTS: No acute fracture or subluxation.. The glenohumeral joint is well aligned. Small osteophytes present . Mild hypertrophic degenerative change of the acromioclavicular joint. No sclerotic or destructive changes observed. RAD/Shoulder min 2 Views IMPRESSION: No fracture or malalignment. Mild degenerative changes. Electronically Signed: Rex Patterson MD at 8:15 EDT , CC: Dr. Yonatan Thompson MD Belt Splicer: Signed Normal [facility] T4 Free Directon 06-18-2024 T4 FREE DIRECT 0.92 ng/dL Normal 0.76-1.46 [facility] Comment on above: Performed By: #### L 501.9520, L501.40944, L506.0400, L500.4050, L500.4100 ####[facility] [address] [place], [place], [id number] Thyroid Stim Hormone (TSH)on 06-18-2024 TSH 4.47 uIU/mL High 0.358-3.74 [facility] Comment on above: Performed By: #### L 501.9520, L501.79207, L506.0400, L500.4050, L500.4100 ####[facility] [address] [place], [place], [id number] Chiropractic Reporton 2023 Chiropractic Report [facility] [address] [place] [id number] OFFICE VISIT Date of Service: 06/11/24 MR#: [id number] Acct: [id number] Name: RACHELLE CHAMPION Rep #: [id number] : 1955 Provider: GARCIA Roy Age/Sex: 68/F Location: [facility] Status: Signed Intake Vital Signs 12/19/23 14:25 05/21/24 11:11 Height 5 ft 8 in 5 ft 8 in Intake Visit Reasons: dry needling/adjustment Chief Complaint: neck and upper back pain Is patient in pain?: Yes (right upper back) Pain scale (1-10): 3 Allergies Penicillins Allergy (Mild, Verified 06/11/24 13:04) itching Seasonal Allergies: Uncoded Allergy (Verified 06/11/24 13:04) Other Medications ???Medication ???Instructions ???Recorded ???Confirmed ???Type antiarthritic combination no.2 900 mg PO 06/17/22 06/11/24 History mg tablet (glucosamine-chondro itin) cinnamon bark 500 mg capsule 500 mg PO DAILY 06/17/22 06/11/24 History (Cinnamon) coenzyme Q10 100 mg capsule 100 mg PO DAILY 06/17/22 06/11/24 History (CoQ-10) flaxseed oil 5 ml miscellaneous BID 06/17/22 06/11/24 History magnesium 30 mg tablet 30 mg PO DAILY 06/17/22 06/11/24 History multivitamin 1 tab PO DAILY 06/17/22 06/11/24 History omega 3-swd-fey-fish oil 300 1 cap PO DAILY 06/17/22 06/11/24 History mg-1,000 mg capsule (Fish Oil) Hydrocortisone 2.5%/lidocaine 5% #30 ea 07/11/23 06/11/24 Rx suppository (cmpd) atorvastatin 10 mg tablet 10 mg PO DAILY 07/11/23 06/11/24 History cholecalciferol (vitamin D3) 75 50 mcg PO DAILY 07/11/23 06/11/24 History mcg (3,000 unit) tablet hydrocortisone 2.5 % topical cream 1 applic RI QD-BID 07/11/23 06/11/24 History with perineal applicator (Proctosol HC) levothyroxine 25 mcg capsule 137 mcg PO 07/11/23 06/11/24 History loratadine 10 mg tablet (Claritin) 10 mg PO DAILY 07/11/23 06/11/24 History trazodone 50 mg tablet 50 mg PO QHS PRN 07/11/23 06/11/24 History escitalopram oxalate 20 mg tablet mg PO 08/30/23 06/11/24 History levofloxacin 500 mg tablet 500 mg PO DAILY #7 tabs 08/30/23 06/11/24 Rx benzonatate 200 mg capsule 200 mg PO TID PRN cough #20 caps 05/21/24 06/11/24 Rx levofloxacin 500 mg tablet 500 mg PO DAILY #7 tabs 05/21/24 06/11/24 Rx Have you fallen in the past year?: No PFSH Medical History Acute sinusitis, unspecified Hemorrhoids Degenerative disc disease, cervical History of benign neoplasm of bone Depression Anxiety Arthritis Hypothyroidism Cervical pain Segmental and somatic dysfunction of pelvic region Segmental and somatic dysfunction of cervical region Segmental and somatic dysfunction of thoracic region Segmental and somatic dysfunction of lumbar region 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 Surgical History History of breast surgery History of hysterectomy History of bunionectomy of left great toe History of total right knee replacement (TKR) Hx of arthroscopy of right knee Hx of eye surgery Hx of adenoidectomy Hx of tonsillectomy Family History Grandfather Arthritis Grandmother Arthritis Aunt Breast cancer Diabetes Father Cancer Rectal Mother Cancer Thyroid Uncle Diabetes Brother Heart disease Social History Smoking Status: Former smoker pack-years: 3 Tobacco: How many years used: 15 alcohol intake: current alcohol intake frequency: holidays/special occasions only substance use type: does not use what type of physical activity do you participate in: walking and yoga frequency: 1-2 times per week seatbelt use: always HPI dry needling/adjustment Chief Complaint: Upper back pain Visit Number: 8 Details: Rachelle is a 68 year old female here to f/u with ongoing right neck, upper back/shoulder blade, and left low back pain. Pt. continues to c/o upper back pain that has also moved to the right side. She rates her pain 3/10 and states its a constant nagging soreness. She advises the pain often radiates into her left trap then down into her arm. She also c/o recent headaches. She states her low back pain has improved since her last adjustment. She continues to do yoga to stay flexible and help decrease her discomfort. She denies new injury. Pt. reports adjustments, and dry needling helpful in relieving her pain and discomfort. Location: neck/back Duration: frequent Aggravating or associated factors: lifting, walking, ADL's Relieving factors: chiro Pain Quality: aching, dull and radiating Exam Musc General: Yes normal gait, joint tenderness and decreased range of motion; No normal posture or muscle weakness Cervical Spine: Yes loss of (more content not included)... Normal [facility] No Panel InformationOrdered By: Yonatan Thompson on 12-23-2023 Free Triiodothyronine (T3) pg/dL 2.1 pg/mL 2.18-3.98 [facility] Serum or plasma thyroid stim ulating hormone (TSH) measurement (units/volume)Ordered By: Yonatan Thompson on 12-23-2023 TSH Qn 2.76 uIU/mL 0.358-3.74 [facility] Thin prep Papanicolaou smear with manual screeningOrdered By: Yonatan Thompson on 12-23-2023 Thin prep Papanicolaou smear with manual screening 0.92 ng/dL 0.76-1.46 [facility] Basophil percentageOrdered B y: Yonatan Thompson on 10-21-2023 Bilirubin [Mass/Vol] 0.90 mg/dL 0.20-1.00 [facility] Comment on above: For patients on eltr ombopag therapy, use of Dimension [place] TBIL is not recommended. Chloride [Moles/Vol] 106 mmol/L 98-107 [facility] Cholesterol [Mass/Vol] 202 mg/dL <200 [facility] Comment on above: <200 mg/dL Desirable 200-240 mg/dL Borderline >240 mg/dL High Risk Glucose [Mass/Vol] 108 mg/dL 74-[address] [facility] Comment on above: Fasting Glucose resu lt from 100 to 125 mg/dL suggests IMPAIRED HOMEOSTASIS per A.D.A. criteria. Potassium [Moles/Vol] 3.9 mmol/L 3.5-5.1 [facility] Protein [Mass/Vol] 7.1 g/dL 6.4-8.[address] [facility] Sodium [Moles/Vol] 139 mmol/L 136-[address] [facility] Triglyceride [Mass/Vol] 163 mg/dL <199 [facility] Comment on above: The drugs N-Acetylcy steine and Metamizole may falsely depress this assay.Serum Triglycerides Reference Interval Normal <150 mg/dL Borderline high 150 - 199 mg/dL High 200 - 499 mg/dL Very High > or = 500 mg/dL Laboratory - Chemistry and C hemistry - challengeOrdered By: Yonatan Thompson on 10-21-2023 ALP [Catalytic activity/Vol] 71 U/L 45-117 [facility] ALT [Catalytic activity/Vol] 28 U/L 13-56 [facility] CO2 [Moles/Vol] 30.0 mmol/L 21.0-32.0 [facility] Free T4 [Mass/Vol] 1.21 ng/dL 0.76-1.[address] [facility] Globulin (S) [Mass/Vol] 3.4 g/dL 2.2-4.2 [facility] Urea nitrogen/Creatinine [Mass ratio] 19.4 mg/mg 10-20 [facility] No Panel InformationOrdered By: Yonatan Thompson on 10-21-2023 Estimated GFR (MDRD) Amer 104 mL/min >60 [facility] Comment on above: GFR Calc Estimated GFR (MDRD) Non-Af Amer 86 mL/min >60 [facility] Comment on above: Non- GFR Calc Free Triiodothyronine (T3) pg/dL 2.9 pg/mL 2.18-3.98 [facility] Thyroid Stimulating Hormone (TSH) 0.24 uIU/mL 0.358-3.74 [facility] Serum or plasma albumin annabel urement (mass/volume)Ordered By: Yonatan Thompson on 10-21-2023 Albumin [Mass/Vol] 3.7 g/dL 3.2-5.[address] [facility] Serum or plasma albumin/glob ulin mass ratioOrdered By: Yonatan Thompson on 10-21-2023 Albumin/Globulin [Mass ratio] 1.1 {ratio} 0.9-2.4 [facility] Serum or plasma calcium annabel urement (mass/volume)Ordered By: Yonatan Thompson on 10-21-2023 Calcium [Mass/Vol] 9.2 mg/dL 8.5-10.[address] [facility] Serum or plasma cholesterol in HDL measurement (mass/volume)Ordered By: Yonatan Thompson on 10-21-2023 Cholesterol in HDL [Mass/Vol] 57 mg/dL >40 [facility] Comment on above: The drugs N-Acetylcy steine and Metamizole may falsely depress this assay. Reference Range HDL <40 mg/dL Low HDL Cholesterol HDL >or= 60 mg/dL High HDL Cholesterol Serum or plasma cholesterol in VLDL measurement (mass/volume)Ordered By: Yonatan Thompson on 10-21-2023 Cholesterol in VLDL [Mass/Vol] 33 mg/dL 5-40 [facility] Serum or plasma creatinine m easurement (mass/volume)Ordered By: Yonatan Thompson on 10-21-2023 Creatinine [Mass/Vol] 0.72 mg/dL 0.55-1.02 [facility] Comment on above: The validity of the calculated GFR & GFRAA in patients over 70 years has not been determined. Clinical correlation is essential. Serum or plasma low density lipoprotein (LDL) cholesterol measurement (mass/volume)Ordered By: Yonatan Thompson on 10-21-2023 Cholesterol in LDL [Mass/Vol] 112 mg/dL 0-130 [facility] Serum or plasma urea nitroge n measurement (mass/volume)Ordered By: Yonatan Thompson on 10-21-2023 Urea nitrogen [Mass/Vol] 14 mg/dL 7-18 [facility] Thin prep Papanicolaou smear with manual screeningOrdered By: Yonatan Thompson on 10-21-2023 Thin prep Papanicolaou smear with manual screening 18 U/L 15-37 [facility] Thin prep Papanicolaou smear with manual screening 3 5-15 [facility] Basophil percentageOrdered B y: Yonatan Thompson on 07-15-2023 Bilirubin [Mass/Vol] 0.70 mg/dL 0.20-1.00 [facility] Comment on above: For patients on eltr ombopag therapy, use of Dimension [place] TBIL is not recommended. Chloride [Moles/Vol] 110 mmol/L 98-107 [facility] Cholesterol [Mass/Vol] 191 mg/dL <200 [facility] Comment on above: <200 mg/dL Desirable 200-240 mg/dL Borderline >240 mg/dL High Risk Glucose [Mass/Vol] 103 mg/dL 74-[address] [facility] Comment on above: Fasting Glucose resu lt from 100 to 125 mg/dL suggests IMPAIRED HOMEOSTASIS per A.D.A. criteria. Potassium [Moles/Vol] 4.3 mmol/L 3.5-5.1 [facility] Protein [Mass/Vol] 7.0 g/dL 6.4-8.[address] [facility] Sodium [Moles/Vol] 142 mmol/L 136-[address] [facility] Triglyceride [Mass/Vol] 108 mg/dL <199 [facility] Comment on above: The drugs N-Acetylcy steine and Metamizole may falsely depress this assay.Serum Triglycerides Reference Interval Normal <150 mg/dL Borderline high 150 - 199 mg/dL High 200 - 499 mg/dL Very High > or = 500 mg/dL Laboratory - Chemistry and C hemistry - challengeOrdered By: Yonatan Thompson on 07-15-2023 ALP [Catalytic activity/Vol] 70 U/L 45-117 [facility] ALT [Catalytic activity/Vol] 26 U/L 13-56 [facility] CO2 [Moles/Vol] 28.0 mmol/L 21.0-32.0 [facility] Free T4 [Mass/Vol] 1.29 ng/dL 0.76-1.[address] [facility] Globulin (S) [Mass/Vol] 3.3 g/dL 2.2-4.2 [facility] Urea nitrogen/Creatinine [Mass ratio] 20.3 mg/mg 10-20 [facility] No Panel InformationOrdered By: Yonatan Thompson on 07-15-2023 Estimated GFR (MDRD) Amer 101 mL/min >60 [facility] Comment on above: GFR Calc Estimated GFR (MDRD) Non-Af Amer 83 mL/min >60 [facility] Comment on above: Non- GFR Calc Free Triiodothyronine (T3) pg/dL 2.3 pg/mL 2.18-3.98 [facility] Thyroid Stimulating Hormone (TSH) 0.37 uIU/mL 0.358-3.74 [facility] Serum or plasma albumin annabel urement (mass/volume)Ordered By: Yonatan Thompson on 07-15-2023 Albumin [Mass/Vol] 3.7 g/dL 3.2-5.[address] [facility] Serum or plasma albumin/glob ulin mass ratioOrdered By: Yonatan Thompson on 07-15-2023 Albumin/Globulin [Mass ratio] 1.1 {ratio} 0.9-2.4 [facility] Serum or plasma calcium annabel urement (mass/volume)Ordered By: Yonatan Thompson on 07-15-2023 Calcium [Mass/Vol] 8.8 mg/dL 8.5-10.[address] [facility] Serum or plasma cholesterol in HDL measurement (mass/volume)Ordered By: Yonatan Thompson on 07-15-2023 Cholesterol in HDL [Mass/Vol] 57 mg/dL >40 [facility] Comment on above: The drugs N-Acetylcy steine and Metamizole may falsely depress this assay. Reference Range HDL <40 mg/dL Low HDL Cholesterol HDL >or= 60 mg/dL High HDL Cholesterol Serum or plasma cholesterol in VLDL measurement (mass/volume)Ordered By: Yonatan Thompson on 07-15-2023 Cholesterol in VLDL [Mass/Vol] 22 mg/dL 5-40 [facility] Serum or plasma creatinine m easurement (mass/volume)Ordered By: Yonatan Thompson on 07-15-2023 Creatinine [Mass/Vol] 0.74 mg/dL 0.55-1.02 [facility] Comment on above: The validity of the calculated GFR & GFRAA in patients over 70 years has not been determined. Clinical correlation is essential. Serum or plasma low density lipoprotein (LDL) cholesterol measurement (mass/volume)Ordered By: Yonatan Thompson on 07-15-2023 Cholesterol in LDL [Mass/Vol] 112 mg/dL 0-130 [facility] Serum or plasma urea nitroge n measurement (mass/volume)Ordered By: Yonatan Thompson on 07-15-2023 Urea nitrogen [Mass/Vol] 15 mg/dL 7-18 [facility] Thin prep Papanicolaou smear with manual screeningOrdered By: Yonatan Thompson on 07-15-2023 Thin prep Papanicolaou smear with manual screening 12 U/L 15-37 [facility] Thin prep Papanicolaou smear with manual screening 4 5-15 [facility] CNPNon 05-18-2023 [facility] Telephone ([facility]) RACHELLE CHAMPION ([id number]) 1955 F Date Time Provider Department 05/18/23 ASHER GARCIA [facility] During your visit today, we recorded the following information about you: Asher Garcia PA-C 05/18/2023 9:10 AM Signed Please call patient and let her know her x-ray showed no fractures. She does have an incidental heel spur as well as a mild bunion on her x-rays these are not likely causing her symptoms. Follow-up with podiatry if not improving. Amanda Fay 05/18/2023 2:43 PM Signed Patient given results and verbalized understanding of instructions given. Amanda Fay Allergies As of Date: 05/18/2023 Noted Allergy Reaction ADHESIVE 06/09/2009 PENICILLINS 06/02/2009 SEASONAL ALLERGIES 01/06/2012 14 - Other: See Comments Comments: Sneezing AND congestion XARELTO (RIVAROXABAN) 04/27/2021 16 - Unknown Date Reviewed: 05/17/2023 Reviewed by: Scooby Henson APRN.LEAD SYSTEMS ARCHITECT - Fully Assessed Reason for Visit: Results [95] Primary Visit Diagnosis:Acute right ankle pain [M25.571] Order(s):CONSULT TO PODIATRY [9034] Order #: [id number]: [id number] FUTURE Prescriptions as of 05/18/2023 - Qoelu-3-SKC-EPA-Fish Oil 300-1,000 mg cap Take by mouth once daily. - ergocalciferol, vitamin D2, (VITAMIN D2 ORAL) Take by mouth once daily. - COQ10, LIPOSOMAL UBIQUINOL, ORAL Take by mouth once daily. - glucosamine/msm/csa/ amelia/ppp625 ([id number] M-AMELIA-115HC ORAL) Take by mouth once daily. - [...] Breast Changes [N60.19] 07/16/2010 Encounter Status:Closed by AMANDA FAY on 05/18/23 Normal [facility] No Panel Informationon 05-18 IMPRESSION: No acute osseous abnormality Belt Splicer: PSCB Transcribe Date/Time: May 18 2023 8:57A Dictated by : NGOZI AMOR MD This examination was interpreted and the report reviewed and electronically signed by: NGOZI AMOR MD on May 18 2023 9:00AM EST DIVISION OF RADIOLOGY Radiology Study observation (narrative) [facility] No Panel InformationOrdered By: Ccf Provider on 05-18-2023 [facility] XR ANKLE 3V AP/LAT/OBL RTon 05-18-2023 XR [...] calcaneal spur. IMPRESSION: No acute osseous abnormality Belt Splicer: PSCB Transcribe Date/Time: May 18 2023 8:57A Dictated by : NGOZI AMOR MD This examination was interpreted and the report reviewed and electronically signed by: NGOZI AMOR MD on May 18 2023 9:00AM EST [id number] CN Normal [facility] XR Ankle - right AP and Late [...] Plantar calcaneal spur. DIVISION OF RADIOLOGY Provider, [facility] - 05/18/2023 * * *Final Report* * [...] spur. IMPRESSION IMPRESSION: No acute osseous abnormality Belt Splicer: [facility] Transcribe Date/Time: May 18 2023 8:57A Dictated by : NGOZI AMOR MD This examination was interpreted and the report reviewed and electronically signed by: NGOZI AMOR MD on May 18 2023 9:00AM [facility] XR FOOT 3V AP/LAT/OBL RTon 0 05-18-2023 [...] calcaneal spur. IMPRESSION: No acute osseous abnormality Belt Splicer: [facility] Transcribe Date/Time: May 18 2023 8:57A Dictated by : NGOZI AMOR MD This examination was interpreted and the report reviewed and electronically signed by: NGOZI AMOR MD on May 18 2023 9:00AM EST [id number] CN Normal [facility] XR Foot - right AP and Later [...] Plantar calcaneal spur. DIVISION OF RADIOLOGY Provider, [facility] - 05/18/2023 * * *Final Report* * [...] spur. IMPRESSION IMPRESSION: No acute osseous abnormality Belt Splicer: EUSEBIO Transcribe Date/Time: May 18 2023 8:57A Dictated by : NGOZI AMOR MD This examination was interpreted and the report reviewed and electronically signed by: NGOZI AMOR MD on May 18 2023 9:00AM EST [facility] CNOVon 05-17-2023 CNOV Office Visit (UCWSTR) RACHELLE CHAMPION ([id number]) 1955 F Date Time Provider Department 05/17/23 8:15 AM SCOOBY [facility] During your visit today, we recorded the following information about you: Temperature Pulse Respiration Blood pressure 98.4 degrees 70/minute 18/minute 110/62 Weight 96.8 kg Scooby Henson APRN.LEAD SYSTEMS ARCHITECT 05/17/2023 8:51 AM Signed Subjective HPI Nontoxic-appearing [...] Date Allergic rhinitis Detached retina, right Glaucoma Kvofavv-zcdvmdx-anyu coma syndrome of right eye PAST SURGICAL HISTORY Procedure Laterality Date ARTHROSCOPY KNEE; W/ FIXATION bone spur left, torn meniscus on right EXCHANGE OF INTRAOCULAR LENS S/p IOL Exchange/PPV OD:04/27/2021 PAST SURGICAL HISTORY OF LASIK both eyes. VAGINAL HYSTERECTOMY UTERUS 250 GM/< Hysterectomy, vaginal VITRECTOMY,MECHANICA L S/p IOL Exchange/PPV OD:04/27/2021 ALLERGIES Adhesive, Penicillins, Seasonal Allergies, and Xarelto [Rivaroxaban] MEDICATIONS Ztryc-7-DUP-EPA-Fish Oil 300-1,000 mg cap Take by mouth once daily. ergocalciferol, vitamin D2, (VITAMIN D2 ORAL) Take by mouth once daily. COQ10, LIPOSOMAL UBIQUINOL, ORAL Take by mouth once daily. glucosamine/msm/csa/ amelia/zuy486 ([id number]-CTESJ-ZG M-AMELIA-115HC ORAL) Take by mouth once daily. prednisoLONE [...] Pulmonary: Effort: (more content not included)... Normal [facility] Basophil percentageOrdered B y: Dr. Knowles on 03-08-2023 WBC (Bld) [#/Vol] 6.9 10*3/uL 4.4-11.[address] [facility] Blood erythrocytes count (nu mber/volume)Ordered By: Dr. Knowles on 03-08-2023 RBC (Bld) [#/Vol] 4.29 10*6/uL 4.2-5.4 [facility] Blood hemoglobin measurement (mass/volume)Ordered By: Dr. Knowles on 03-08-2023 Hemoglobin (Bld) [Mass/Vol] 13.1 g/dL 12.0-15.0 [facility] Blood platelet mean volumeOr dered By: Dr. Knowles on 03-08-2023 Platelet mean volume (Bld) [Entitic vol] 10.1 fL 6.2-12.0 [facility] Determination of erythrocyte mean corpuscular volume (MCV)Ordered By: Dr. Knowles on 03-08-2023 MCV (RBC) [Entitic vol] 96.5 fL 81-99 [facility] Erythrocyte sedimentation ra teOrdered By: Dr. Knowles on 03-08-2023 ESR (Bld) [Velocity] 5 mm/h 0-30 [facility] Hematocrit Auto (Bld) [Volum e fraction]Ordered By: Dr. Knowles on 03-08-2023 Hematocrit (Bld) [Volume fraction] 41.4 % 37-47 [facility] Laboratory - Hematology and Cell countsOrdered By: Dr. Knowles on 03-08-2023 Erythrocyte distribution width (RBC) [Entitic vol] 49.3 fL 35.1-43.9 [facility] Erythrocyte distribution width (RBC) [Ratio] 13.7 % 11.6-14.6 [facility] MCH (RBC) [Entitic mass] 30.5 pg 27.0-32.0 [facility] MCHC Auto (RBC) [Mass/Vol]Or dered By: Dr. Knowles on 03-08-2023 MCHC (RBC) [Mass/Vol] 31.6 g/dL 32-36 [facility] Platelets bldOrdered By: Dr. Knowles on 03-08-2023 Platelets (Bld) [#/Vol] 236 10*3/uL 150-450 [facility] Basophil percentageOrdered B y: Dr. Thompson on 12-23-2022 Chloride [Moles/Vol] 104 mmol/L 98-107 [facility] Glucose [Mass/Vol] 120 mg/dL 74-[address] [facility] Comment on above: Fasting Glucose resu lt from 100 to 125 mg/dL suggests IMPAIRED HOMEOSTASIS per A.D.A. criteria. Potassium [Moles/Vol] 3.9 mmol/L 3.5-5.1 [facility] Sodium [Moles/Vol] 140 mmol/L 136-[address] [facility] Laboratory - Chemistry and C hemistry - challengeOrdered By: Dr. Thompson on 12-23-2022 CO2 [Moles/Vol] 29.0 mmol/L 21.0-32.0 [facility] Free T4 [Mass/Vol] 1.18 ng/dL 0.76-1.[address] [facility] Urea nitrogen/Creatinine [Mass ratio] 18.8 mg/mg 10-20 [facility] No Panel InformationOrdered By: Dr. Thompson on 12-23-2022 Estimated GFR (MDRD) Amer 100 mL/min >60 [facility] Comment on above: GFR Calc Estimated GFR (MDRD) Non-Af Amer 83 mL/min >60 [facility] Comment on above: Non- GFR Calc Free Triiodothyronine (T3) pg/dL 2.7 pg/mL 2.18-3.98 [facility] Thyroid Stimulating Hormone (TSH) 1.54 uIU/mL 0.358-3.74 [facility] Serum or plasma calcium annabel urement (mass/volume)Ordered By: Dr. Thompson on 12-23-2022 Calcium [Mass/Vol] 9.2 mg/dL 8.5-10.[address] [facility] Serum or plasma creatinine m easurement (mass/volume)Ordered By: Dr. Thompson on 12-23-2022 Creatinine [Mass/Vol] 0.75 mg/dL 0.55-1.02 [facility] Comment on above: The validity of the calculated GFR & GFRAA in patients over 70 years has not been determined. Clinical correlation is essential. Serum or plasma urea nitroge n measurement (mass/volume)Ordered By: Dr. Thompson on 12-23-2022 Urea nitrogen [Mass/Vol] 14 mg/dL 7-18 [facility] Thin prep Papanicolaou smear with manual screeningOrdered By: Dr. Thompson on 12-23-2022 Thin prep Papanicolaou smear with manual screening 7 5-15 [facility] Whole blood hemoglobin A1c/t otal hemoglobin ratio (mass fraction)Ordered By: Dr. Thompson on 12-23-2022 HbA1c (Bld) [Mass fraction] 5.8 % 3.8-5.6 [facility] Comment on above: Normal < 5.7 % Predi abetic 5.7 - 6.4 % Diabetic >or= 6.5 % Please note range changes. Basophil percentageOrdered B y: Dr. Thompson on 09-16-2022 Chloride [Moles/Vol] 106 mmol/L 98-107 [facility] Cholesterol [Mass/Vol] 286 mg/dL <200 [facility] Comment on above: <200 mg/dL Desirable 200-240 mg/dL Borderline >240 mg/dL High Risk Glucose [Mass/Vol] 108 mg/dL 74-[address] [facility] Comment on above: Fasting Glucose resu lt from 100 to 125 mg/dL suggests IMPAIRED HOMEOSTASIS per A.D.A. criteria. Potassium [Moles/Vol] 3.9 mmol/L 3.5-5.1 [facility] Sodium [Moles/Vol] 140 mmol/L 136-[address] [facility] Triglyceride [Mass/Vol] 218 mg/dL <199 [facility] Comment on above: The drugs N-Acetylcy steine and Metamizole may falsely depress this assay.Serum Triglycerides Reference Interval Normal <150 mg/dL Borderline high 150 - 199 mg/dL High 200 - 499 mg/dL Very High > or = 500 mg/dL Laboratory - Chemistry and C hemistry - challengeOrdered By: Dr. Thompson on 09-16-2022 CO2 [Moles/Vol] 28.0 mmol/L 21.0-32.0 [facility] Free T4 [Mass/Vol] 1.12 ng/dL 0.76-1.[address] [facility] Urea nitrogen/Creatinine [Mass ratio] 19.5 mg/mg 10-20 [facility] No Panel InformationOrdered By: Dr. Thompson on 09-16-2022 Estimated GFR (MDRD) Amer 114 mL/min >60 [facility] Comment on above: GFR Calc Estimated GFR (MDRD) Non-Af Amer 95 mL/min >60 [facility] Comment on above: Non- GFR Calc Free Triiodothyronine (T3) pg/dL 2.9 pg/mL 2.18-3.98 [facility] Thyroid Stimulating Hormone (TSH) 0.99 uIU/mL 0.358-3.74 [facility] Serum or plasma calcium annabel urement (mass/volume)Ordered By: Dr. Thompson on 09-16-2022 Calcium [Mass/Vol] 9.2 mg/dL 8.5-10.[address] [facility] Serum or plasma cholesterol in HDL measurement (mass/volume)Ordered By: Dr. Thompson on 09-16-2022 Cholesterol in HDL [Mass/Vol] 56 mg/dL >40 [facility] Comment on above: The drugs N-Acetylcy steine and Metamizole may falsely depress this assay. Reference Range HDL <40 mg/dL Low HDL Cholesterol HDL >or= 60 mg/dL High HDL Cholesterol Serum or plasma cholesterol in VLDL measurement (mass/volume)Ordered By: Dr. Thompson on 09-16-2022 Cholesterol in VLDL [Mass/Vol] 44 mg/dL 5-40 [facility] Serum or plasma creatinine m easurement (mass/volume)Ordered By: Dr. Thompson on 09-16-2022 Creatinine [Mass/Vol] 0.67 mg/dL 0.55-1.02 [facility] Comment on above: The validity of the calculated GFR & GFRAA in patients over 70 years has not been determined. Clinical correlation is essential. Serum or plasma low density lipoprotein (LDL) cholesterol measurement (mass/volume)Ordered By: Dr. Thompson on 09-16-2022 Cholesterol in LDL [Mass/Vol] 186 mg/dL 0-130 [facility] Serum or plasma urea nitroge n measurement (mass/volume)Ordered By: Dr. Thompson on 09-16-2022 Urea nitrogen [Mass/Vol] 13 mg/dL 7-18 [facility] Thin prep Papanicolaou smear with manual screeningOrdered By: Dr. Thompson on 09-16-2022 Thin prep Papanicolaou smear with manual screening 6 5-15 [facility] Basophil percentageon 2021 Bilirubin [Mass/Vol] 0.70 mg/dL 0.20-1.00 [facility] Work Phone: Comment on above: For patients on eltr ombopag therapy, use of Dimension [place] TBIL is not recommended. Chloride [Moles/Vol] 106 mmol/L 98-107 [facility] Work Phone: Cholesterol [Mass/Vol] 233 mg/dL <200 [facility] Work Phone: Comment on above: <200 mg/dL Desirable 200-240 mg/dL Borderline >240 mg/dL High Risk Glucose [Mass/Vol] 108 mg/dL 74-[address] [facility] Work Phone: Comment on above: Fasting Glucose resu lt from 100 to 125 mg/dL suggests IMPAIRED HOMEOSTASIS per A.D.A. criteria. Potassium [Moles/Vol] 3.7 mmol/L 3.5-5.1 [facility] Work Phone: Protein [Mass/Vol] 7.0 g/dL 6.4-8.[address] [facility] Work Phone: Sodium [Moles/Vol] 139 mmol/L 136-[address] [facility] Work Phone: Triglyceride [Mass/Vol] 142 mg/dL <199 [facility] Work Phone: Comment on above: The drugs N-Acetylcy steine and Metamizole may falsely depress this assay.Serum Triglycerides Reference Interval Normal <150 mg/dL Borderline high 150 - 199 mg/dL High 200 - 499 mg/dL Very High > or = 500 mg/dL Laboratory - Chemistry and C hemistry - challengeon 03-18-2022 ALP [Catalytic activity/Vol] 72 U/L 45-117 [facility] Work Phone: ALT [Catalytic activity/Vol] 28 U/L 13-56 [facility] Work Phone: CO2 [Moles/Vol] 27.0 mmol/L 21.0-32.0 [facility] Work Phone: Free T4 [Mass/Vol] 1.32 ng/dL 0.76-1.[address] [facility] Work Phone: Globulin (S) [Mass/Vol] 3.3 g/dL 2.2-4.2 [facility] Work Phone: Urea nitrogen/Creatinine [Mass ratio] 17.9 mg/mg 10-20 [facility] Work Phone: No Panel Informationon 03-18 Estimated GFR (MDRD) Amer 103 mL/min >60 [facility] Work Phone: Comment on above: GFR Calc Estimated GFR (MDRD) Non-Af Amer 85 mL/min >60 [facility] Work Phone: Comment on above: Non- GFR Calc Free Triiodothyronine (T3) pg/dL 2.9 pg/mL 2.18-3.98 [facility] Work Phone: Thyroid Stimulating Hormone (TSH) 0.38 uIU/mL 0.358-3.74 [facility] Work Phone: Serum or plasma albumin annabel urement (mass/volume)on 03-18-2022 Albumin [Mass/Vol] 3.7 g/dL 3.2-5.[address] [facility] Work Phone: Serum or plasma albumin/glob ulin mass ratioon 03-18-2022 Albumin/Globulin [Mass ratio] 1.1 {ratio} 0.9-2.4 [facility] Work Phone: Serum or plasma calcium annabel urement (mass/volume)on 03-18-2022 Calcium [Mass/Vol] 8.9 mg/dL 8.5-10.[address] [facility] Work Phone: Serum or plasma cholesterol in HDL measurement (mass/volume)on 03-18-2022 Cholesterol in HDL [Mass/Vol] 53 mg/dL >40 [facility] Work Phone: Comment on above: The drugs N-Acetylcy steine and Metamizole may falsely depress this assay. Reference Range HDL <40 mg/dL Low HDL Cholesterol HDL >or= 60 mg/dL High HDL Cholesterol Serum or plasma cholesterol in VLDL measurement (mass/volume)on 03-18-2022 Cholesterol in VLDL [Mass/Vol] 28 mg/dL 5-40 [facility] Work Phone: Serum or plasma creatinine m easurement (mass/volume)on 03-18-2022 Creatinine [Mass/Vol] 0.73 mg/dL 0.55-1.02 [facility] Work Phone: Comment on above: The validity of the calculated GFR & GFRAA in patients over 70 years has not been determined. Clinical correlation is essential. Serum or plasma low density lipoprotein (LDL) cholesterol measurement (mass/volume)on 03-18-2022 Cholesterol in LDL [Mass/Vol] 152 mg/dL 0-130 [facility] Work Phone: Serum or plasma urea nitroge n measurement (mass/volume)on 03-18-2022 Urea nitrogen [Mass/Vol] 13 mg/dL 7-18 [facility] Work Phone: Thin prep Papanicolaou smear with manual screeningon 03-18-2022 Thin prep Papanicolaou smear with manual screening 16 U/L 15-37 [facility] Work Phone: Thin prep Papanicolaou smear with manual screening 6 5-15 [facility] Work Phone: Office Visit: Spine Visit- N tanya & upper back painon 08-01-2017 Documentation of current medications (procedure) Done Invalid Interpretation Code [facility] Work Phone: Office Visit: Spine Visit- N tanya & lower back painon 04-28-2017 Protein mass conc Done [facility] Work Phone: Office Visit: Spine Visit-ne ck , lower lumbar painon 02-09-2017 Tobacco smoking status SDIS Never Invalid Interpretation Code [facility] Work Phone: Tobacco smoking status SDIS Former smoker [facility] Work Phone: Tobacco use [facility] Former smoker Invalid Interpretation Code [facility] Work Phone: Office Visit: Spine Visit - Neck and Upper Back Painon 11-18-2014 MG Breast screening Normal Bilateral Invalid Interpretation Code [facility] Work Phone: Office Visit: Spine Visit - Neck and Upper Back Painon 11-15-2011 Colonoscopy (procedure) Colonoscopy (procedure) Invalid Interpretation Code [facility] Work Phone: Protein mass conc Colonoscopy (procedure) [facility] Work Phone: OCT MACULA CIRRUS OU (BOTH E YES) [facility] Vital Signs Date Time Vital Sign Value Performing Clinician Facility 02-11-2025 14:52-0400 Body height 172.[address] Yonatan Thompson MD Work Phone: [facility] 07-11-2023 08:23-0400 Body height 172.[address] Yonatan Thompson Work Phone: [facility] 07-11-2023 08:23-0400 Body mass index (BMI) [Ratio] 32.3 kg/m2 Dr. Yonatan Thompson Work Phone: [facility] 07-11-2023 08:23-0400 Body temperature 97.3 [degF] Dr. Yonatan Thompson Work Phone: [facility] 07-11-2023 08:23-0400 Body weight 96.[address] Yonatan Thompson Work Phone: [facility] 07-11-2023 08:23-0400 Diastolic blood pressure 75 mm[Hg] Dr. Yonatan Thompson Work Phone: [facility] 07-11-2023 08:23-0400 Heart rate 79 /min Dr. Yonatan Thompson Work Phone: [facility] 07-11-2023 08:23-0400 Respiratory rate 18 /min Dr. Yonatan Thompson Work Phone: [facility] 07-11-2023 08:23-0400 SaO2% (BldA) [Mass fraction] 96 % Dr. Yonatan Thompson Work Phone: [facility] 07-11-2023 08:23-0400 Systolic blood pressure 123 mm[Hg] Dr. Yonatan Thompson Work Phone: [facility] 05-17-2023 08:22-0400 Body temperature 98.4 [degF] Scooby Henson APRN.LEAD SYSTEMS ARCHITECT Work Phone: [facility] 05-17-2023 08:22-0400 Body weight 96.8 kg Scooby Henson APRN.CNP Work Phone: [facility] 05-17-2023 08:22-0400 Diastolic blood pressure 62 mm[Hg] Scooby Henson APRN.LEAD SYSTEMS ARCHITECT Work Phone: [facility] 05-17-2023 08:22-0400 Heart rate 70 /min Scooby Henson MECHANICAL TECHNOLOGIST.LEAD SYSTEMS ARCHITECT Work Phone: [facility] 05-17-2023 08:22-0400 Respiratory rate 18 /min Scooby [facility] MECHANICAL TECHNOLOGIST.LEAD SYSTEMS ARCHITECT Work Phone: [facility] 05-17-2023 08:22-0400 SaO2% (BldA) [Mass fraction] 97 % Scooby [facility] MECHANICAL TECHNOLOGIST.LEAD SYSTEMS ARCHITECT Work Phone: [facility] 05-17-2023 08:22-0400 Systolic blood pressure 110 mm[Hg] Scooby [facility] MECHANICAL TECHNOLOGIST.LEAD SYSTEMS ARCHITECT Work Phone: [facility] 12-13-2016 09:19-0500 BP Diastolic 78 mm[Hg] Valentina Dossi GARCIA [facility] Work Phone: 12-13-2016 09:19-0500 BP Systolic 138 mm[Hg] Valentina Dossi GARCIA [facility] Work Phone: 12-13-2016 09:19-0500 Weight 96.03 kg Valentina [employer] GARCIA [facility] Work Phone: Encounters Encounter Date Encounter Type Care Provider Facility Start: 05-29-2025 ambulatory Yonatan Thompson Facility:[facility] Start: 05-24-[address] Yonatan Thompson MD -Outpatient Breast Imaging Work Phone: Start: 05-24-2025 ambulatory Yonatan Thompson Facility:[facility] Start: 05-22-2025 End: 05-22-[address] Jaciel Gavin DO -Laboratory Specimen Work Phone: Start: 05-22-2025 End: 05-22-2025 ambulatory Yonatan Thompson Facility:[facility] Start: 05-20-2025 End: 05-20-[address] oYnatan Thompson MD Work Phone: -Laboratory Start: 05-20-2025 End: 05-20-[address] Jaciel Gavin DO -Laboratory Work Phone: Start: 05-20-2025 End: 05-20-2025 [facility] Start: 05-06-2025 End: 05-06-[address] Valentina Flores DC -[facility] Work Phone: Start: 05-06-2025 End: 05-06-[address] Yonatan Thompson MD Work Phone: [facility] Work Phone: Start: 04-29-2025 End: 04-29-2025 ambulatory JACIEL GAVIN DO Facility:[facility] Start: 04-09-2025 End: 04-09-[address] Valentina Flores DC -[facility] Work Phone: Start: 04-09-2025 End: 04-09-[address] Yonatan Thompson MD Work Phone: [facility] Work Phone: Start: 03-29-2025 End: 03-29-[address] Yonatan Thompson MD Work Phone: [facility] Work Phone: Start: 03-29-2025 End: 03-29-[address] Yonatan Thompson MD -Laboratory [facility] Start: 03-29-2025 End: 03-29-2025 ambulatory Yonatan Thompson Facility:[facility] Start: 03-22-2025 End: 03-22-[address] Yonatan Thompson MD Work Phone: [facility] Work Phone: Start: 03-22-2025 End: 03-22-[address] [facility] Start: 03-22-2025 End: 03-22-2025 ambulatory Yonatan Thompson Facility:[facility] Start: 03-11-2025 End: 03-11-[address] Valentina Flores DC -[facility] Work Phone: Start: 03-11-2025 End: 03-11-2025 ambulatory Valentina Flores Facility:[facility] Start: 02-11-2025 End: 02-11-[address] Valentina Flores DC -[facility] Work Phone: Start: 02-11-2025 End: 02-11-2025 ambulatory Valentina Flores Facility:[facility] Start: 01-10-2025 End: 01-10-[address] Valentina Flores DC -[facility] Work Phone: Start: 01-10-2025 End: 01-10-2025 ambulatory Valentina Flores Facility:[facility] Start: 12-17-2024 End: 12-17-[address] Yonatan Thompson MD -Laboratory, [facility] Start: 12-17-2024 End: 12-17-2024 ambulatory Yonatan Thompson Facility:[facility] Start: 11-26-2024 End: 11-26-2024 ambulatory Valentina Flores Facility:[facility] Start: 10-29-2024 End: 10-29-2024 ambulatory Yonatan Thompson Facility:[facility] Start: 10-01-2024 End: 10-01-2024 ambulatory Valentina Dossi Facility:[facility] Start: 09-10-2024 End: 09-10-2024 ambulatory Yonatan Thompson Facility:[facility] Start: 09-03-2024 End: 09-03-2024 Emergency department patient visit Gaston Sanchez Facility:[facility] Start: 09-03-2024 End: 09-03-2024 ambulatory Valentina Flores Facility:[facility] Start: 08-06-2024 End: 08-06-2024 ambulatory Yonatan Thompson Facility:[facility] Start: 07-09-2024 End: 07-09-2024 ambulatory Valentina Dossi Facility:[facility] Start: 06-18-2024 End: 06-18-2024 ambulatory Yonatan Thompson Facility:[facility] Start: 06-11-2024 End: 06-11-2024 ambulatory Valentinabalbina Bolanossi Facility:[facility] Start: 12-23-2023 End: 12-23-[address] Yonatan Thompson Work Phone: [facility] Work Phone: Start: 12-23-2023 End: 12-23-[address] Yonatan Thompson Work Phone: [facility] Start: 12-19-2023 End: 12-19-[address] Yonatan Thompson Work Phone: [facility] Work Phone: Start: 11-21-2023 End: 11-21-[address] Yonatan Thompson Work Phone: [facility] Work Phone: Start: 10-24-2023 End: 10-24-[address] Yonatan Thompson Work Phone: [facility] Work Phone: Start: 10-21-2023 End: 10-21-[address] Yonatan Thompson Work Phone: [facility] Start: 10-03-2023 End: 10-03-[address] Yonatan Thompson Work Phone: [facility] Work Phone: Start: 09-01-2023 End: 09-01-[address] Yonatan Thompson Work Phone: [facility] Chiropractic Work Phone: Start: 07-26-2023 End: 07-26-[address] Yonatan Thompson Work Phone: [facility] Work Phone: Start: 07-19-2023 End: 07-19-[address] Yonatan Thompson Work Phone: [facility] Work Phone: Start: 07-19-2023 End: 07-19-[address] Yonatan Thompson Work Phone: [facility] Work Phone: Start: 07-15-2023 End: 07-15-[address] Yonatan Thompson Work Phone: [facility] Work Phone: Start: 07-15-2023 End: 07-15-[address] Yonatan Thompson Work Phone: [facility] Start: 07-11-2023 End: 07-11-[address] Yonatan Thompson Work Phone: [facility] Work Phone: Start: 07-01-2023 End: 07-01-[address] Yonatan Thompson Work Phone: [facility] Start: 06-27-2023 End: 06-27-[address] [facility] Work Phone: Start: 05-30-2023 End: 05-30-[address] [facility] Work Phone: Start: 05-19-2023 ambulatory Pcp (Historical) [facility] Start: 05-18-2023 Telephone encounter Asher burkett PA-C Work Phone: [facility] Comment on above: Results Start: 05-18-2023 End: 05-18-2023 ambulatory [facility] Facility:[facility] Start: 05-18-2023 End: 05-18-2023 Subsequent hospital visit by physician [facility] Work Phone: Radiology Comment on above: Foot pain, right [M7 9.671] Start: 05-17-2023 End: 05-17-2023 ambulatory YONATAN THOMPSON Facility:[facility] Start: 05-17-2023 End: 05-17-2023 Office outpatient visit 15 minutes Scooby Sixto [facility] Work Phone: [facility] Comment on above: Foot pain, right (Pr imary Dx); Acute right ankle pain Start: 04-18-2023 End: 04-18-[address] Yonatan Thompson Work Phone: [facility] Work Phone: Start: 03-21-2023 End: 03-21-[address] Yonatan Thompson Work Phone: [facility] Work Phone: Start: 03-08-2023 End: 03-08-[address] Yonatan Thompson Work Phone: [facility] Work Phone: Start: 03-08-2023 End: 03-08-[address] Yonatan Thompson Work Phone: [facility] Start: 02-21-2023 End: 02-21-[address] Yonatan Thompson Work Phone: [facility] Start: 01-17-2023 End: 01-17-[address] Yonatan Thompson Work Phone: [facility] Start: 12-23-2022 End: 12-23-[address] Yonatan Thompson Work Phone: [facility] Work Phone: Start: 12-23-2022 End: 12-23-[address] Yonatan Thompson Work Phone: [facility] Start: 12-20-2022 End: 12-20-[address] Yonatan Thompson Work Phone: [facility] Start: 11-22-2022 End: 11-22-[address] Yonatan Thompson Work Phone: [facility] Start: 10-25-2022 End: 10-25-[address] Yonatan Thompson Work Phone: [facility] Start: 10-15-2022 Non-patient / Non-visit Dr. Yonatan Thompson Work Phone: [facility] Start: 10-15-2022 End: 10-15-[address] Yonatan Thompson Work Phone: [facility] Work Phone: Start: 10-15-2022 End: 10-15-[address] Yonatan Thompson Work Phone: [facility] Start: 09-27-2022 End: 09-27-[address] Yonatan Thompson Work Phone: [facility] Start: 09-20-[address] Yonatan Thompson Work Phone: [facility] Start: 09-16-2022 End: 09-16-[address] Yonatan Thompson Work Phone: [facility] Work Phone: Start: 09-16-2022 End: 09-16-[address] Yonatan Thompson Work Phone: [facility] Start: 08-31-2022 End: 08-31-[address] Yonatan Thompson Work Phone: [facility] Start: 07-20-2022 End: 07-20-[address] Yonatan Thompson Work Phone: [facility] Start: 06-17-2022 End: 06-17-[address] Yonatan Thompson Work Phone: [facility] Start: 06-14-2022 End: 06-14-[address] Yonatan Thompson Work Phone: [facility] Start: 05-31-2022 End: 05-31-[address] Yonatan Thompson Work Phone: [facility] Start: 05-19-2022 End: 05-19-[address] Yonatan Thompson Work Phone: [facility] Start: 04-14-2022 End: 04-14-[address] Yonatan Thompson Work Phone: [facility] Start: 04-09-2022 End: 04-09-2022 Patient encounter procedure Marium Elam MD Work Phone: Ophthalmology Comment on above: CME (cystoid macular edema), right (Primary Dx); Mpsuahf-wzipeoq-xrbxvijm syndrome of right eye; Pseudophakia Start: 03-18-2022 End: 03-18-[address] Yonatan Thompson Work Phone: [facility] Start: 03-16-2022 End: 03-16-[address] Yonatan Thompson Work Phone: [facility] Start: 02-16-2022 End: 02-16-[address] Yonatan Thompson Work Phone: [facility] Procedures Date Procedure Procedure Detail Performing Clinician Start: 05-24-2025 Screening mammography Mildred Thompson MD Work Phone: Start: 05-22-2025 Creatinine measureme nt, [address] Yonatan Thompson MD Work Phone: Start: 12-17-2024 Measurement of renal function Dr. Yonatan Thompson MD Work Phone: Comment on above: GFR Calc Start: 07-19-2023 Screening mammography Mildred Thompson Work Phone: Start: 07-01-2023 Radiologic examinati on of knee Dr. Yonatan Thompson Work Phone: Start: 05-18-2023 Radex ankle complete minimum 3 views Scooby Henson APRN.[employer] ARCHITECT Work Phone: Start: 06-17-2022 X-ray of cervical spine Dr. Yonatan Thompson Work Phone: Start: 05-31-2022 MRI of cervical spine Mildred Thompson Work Phone: Start: 04-09-2022 Computerized ophthal lucille imaging retina Marium Elam MD Work Phone: Start: 08-01-2017 End: 08-01-2017 Appl modality 1/> areas elec stimj unattended Valentina Tomasa Dossi DC Work Phone: Start: 08-01-2017 End: [...] Chiropractic manipulative tx spinal 3-4 regions Valentina Randolph Sandra ZELAYA Work Phone: Start: 12-15-2016 End: 12-16-2016 Chiropractic manipulation Valentina Randolph Sandra ZELAYA Work Phone: Plan of Treatment Date Care Activity Detail Author Start: 12-23-2032 Urine microalbumin profile DTaP,Tdap,Td Vaccine (3 - Td or Tdap) [facility] Start: 05-24-2025 Screening mammography SCRN DIRK M (CAD)W/REJI BILAT [facility] Start: 05-22-[address] [facility] Start: 07-15-2024 Covid-19 Vaccine ( season) Covid-19 Vaccine ( season) [facility] Start: 07-15-2024 Influenza vaccination Influenza Vacc ine (#1) [facility] Start: 11-14-2023 Advance Directive Discussion Advance Directive Discussion [facility] Start: 09-16-2023 Pneumococcal Vaccine : 65+ (2 of 2 - PCV) Pneumococcal Vaccine: 65+ (2 of 2 - PCV) [facility] Start: 07-15-2023 Influenza vaccination INFLUENZA (#1) [facility] Start: 04-24-2023 End: 10-01-2023 OCT MACULA CIRRUS OU (BOTH EYES) OCT MACULA CIRRUS OU (BOTH EYES) OP[facility] Imaging Routine CME (cystoid macular edema), right Ckwpzjp-saiskbg-tqxeaon a syndrome of right eye Pseudophakia Expected: 04/24/2023, Expires: 10/01/2023 [facility] Work Phone: Comment on above: Expected: 04/24/2023 , Expires: 10/01/2023 Start: 11-14-2022 ADVANCE DIRECTIVE DISCUSSION ADVANCE DIRECTIVE DISCUSSION [facility] Start: 11-14-2022 DEPRESSION ASSESSMENT DEPRESSION ASS ESSMENT [facility] Start: 2022 BONE DENSITY BONE DENSITY [facility] Start: 2022 PNEUMOCOCCAL: 65+ (1 - PCV) PNEUMOCOCCAL: 65+ (1 - PCV) [facility] Start: 2022 Screening for osteoporosis Bone Density Screening [facility] Start: 05-13-2022 COVID-19 VACCINE (6 - Booster for Moderna series) COVID-19 VACCINE (6 - Booster for Moderna series) [facility] Start: 08-01-2017 End: 08-01-2017 Appointment Appointment [facility] Work Phone: Start: 2017 RSV Vaccine (1 - 1-d ose 60+ series) RSV Vaccine (1 - 1-dose 60+ series) [facility] Start: 04-28-2017 End: 04-28-2017 Appointment Appointment [facility] Work Phone: Start: 02-09-2017 End: 02-10-2017 Follow up Appt 1x/week Follow up Appt 1x/week [facility] Work Phone: Start: 02-09-2017 End: 02-10-2017 Follow up Appt 1x/week Follow up Appt 1x/week [facility] Work Phone: Start: 01-31-2017 End: 01-31-2017 Follow up Appt 2x/week Follow up Appt 2x/week [facility] Work Phone: Start: 01-31-2017 End: 01-31-2017 Follow up Appt 2x/week Follow up Appt 2x/week [facility] Work Phone: Start: 01-24-2017 End: 01-24-2017 Follow up Appt 2x/week Follow up Appt 2x/week [facility] Work Phone: Start: 01-24-2017 End: 01-24-2017 Follow up Appt 2x/week Follow up Appt 2x/week [facility] Work Phone: Start: 01-17-2017 End: 01-17-2017 Follow up Appt 2x/week Follow up Appt 2x/week [facility] Work Phone: Start: 01-17-2017 End: 01-17-2017 [...] up Appt 3x/week Follow up Appt 3x/week [facility] Work Phone: Start: 12-13-2016 End: 12-15-2016 Follow up Appt 3x/week Follow up Appt 3x/week [facility] Work Phone: Start: 12-13-2016 End: 12-15-2016 Radex spine cervical 2 or 3 views X-Ray, Spine, Cervical 2-3 views [facility] Work Phone: Start: 12-13-2016 End: 12-15-2016 Follow up Appt 3x/week Follow up Appt 3x/week [facility] Work Phone: Start: 12-13-2016 End: 12-15-2016 X-ray exam of neck spine X-Ray, Spine, Cervical 2-3 views [facility] Work Phone: Start: 01-03-2009 PAP TESTING PAP TESTING [facility] Start: 2007 SHINGRIX VACCINE (1 of 2) SHINGRIX VACCINE (1 of 2) [facility] Start: 2002 COLOGUARD (FIT-DNA) COLOGUARD (FIT-D NA) [facility] Start: 2002 Colonoscopy COLONOSCOPY [facility] Start: 2002 COLORECTAL CANCER SCREENING COLORECTAL CANCER SCREENING [facility] Start: [address] COLONOGRAPHY [facility] Start: 2002 DIABETES SCREEN DIABETES SCREEN [facility] Start: 2002 Diabetes Screening Diabetes Screenin g [facility] Start: 2002 FECAL OCCULT BLOOD FECAL OCCULT BLOO D [facility] Start: 2002 Lipid panel Lipid Screening [facility] Start: 2002 LIPID SCREEN LIPID SCREEN [facility] Start: 2002 Screening for malign ant neoplasm of colon [facility] Start: 2002 SIGMOIDOSCOPY SIGMOIDOSCOPY [facility] Start: 1997 Mammography MAMMOGRAM [facility] Start: 1997 Screening for malign ant neoplasm of breast Mammogram Screening [facility] Start: 1987 HPV TESTING HPV TESTING [facility] Start: 1976 Urine microalbumin profile DTAP,TDAP,TD (1 - Tdap) [facility] Start: 1975 Anxiety Screening Anxiety Screening [facility] Start: 1975 Depression Screening Depression Scre ening [facility] Start: 1975 HEPATITIS C SCREENING HEPATITIS C [facility] Start: 1975 Hepatitis C screening Hepatitis C [facility] Start: 1975 HIV SCREENING HIV SCREENING [facility] Start: 1969 Adult depression screening assessment DEPRESSION SCREENING [facility] Cortisol Free [Mass/volume] in 24 hour Urine [facility] Cortisol Free [Mass/volume] in Urine [facility] End: 2024 XR ANKLE GENERAL 3V AP/LAT/OBL RIGHT XR ANKLE GENERAL 3V AP/LAT/OBL RIGHT Radiology STAT Foot pain, right Acute right ankle pain 1 Occurrences starting 05/17/2023 until 2024 [facility] Work Phone: Comment on above: 1 Occurrences starti ng 05/17/2023 until 2024 End: 2024 XR FOOT GENERAL 3V AP/LAT/OBL RIGHT XR FOOT GENERAL 3V AP/LAT/OBL RIGHT Radiology STAT Foot pain, right Acute right ankle pain 1 Occurrences starting 05/17/2023 until 2024 [facility] Work Phone: Comment on above: 1 Occurrences starti ng 05/17/2023 until 2024 Immunizations Immunization Date Immunization Notes Care Provider [facility] 09-13-2022 influenza virus vaccine, unspecified formulation Xr Lignum Work Phone: [facility] 08-19-2012 influenza virus vaccine, unspecified formulation Marium Fishman MD Work Phone: [facility] 08-16-2009 influenza virus vaccine, unspecified formulation Marium Fishman MD Work Phone: [facility] Work Phone: 09-13-2006 influenza virus vaccine, unspecified formulation Marium Fishman MD Work Phone: [facility] Work Phone: Payers Date Payer Category Payer Self-pay [id number] 2022 Medicare [id number] 2022 Medicare MMO MEDICARE MMO MEDADVANTAGE HMO [id number] 2022-Present [phone] [address] [place] [address] HMO [id number] 2020 Unknown [employer] [id number] 2020-Present [phone] [address] [place] [address] O [id number] 1957 Unknown [id number] [id number] 7 Unknown [id number] Unknown [facility] PACKAGE PLAN [id number] Unknown [id number] Unknown [id number] [id number] 2 Unknown [id number] 2.16.840.1.491690.3.579.2.46 2 Unknown [id number] 2.16.840.1.652204.3.579.2.46 2 Unknown [id number] 2.16.840.1.535405.3.579.2.46 2 Unknown [id number] 2.16.840.1.687824.3.579.2.46 2 Unknown [id number] 2.16.840.1.764749.3.579.2.46 2 Unknown [id number] 2.16.840.1.866449.3.579.2.46 2 Unknown [id number] 2.16.840.1.835958.3.579.2.46 2 Unknown [id number] 2.16.840.1.549233.3.579.2.46 2 Unknown [id number] 2.16.840.1.102333.3.579.2.46 2 Unknown [id number] 2.16.840.1.951782.3.579.2.46 2 Unknown [id number] 2.16.840.1.707442.3.579.2.46 2 Unknown [id number] 2.16.840.1.109467.3.579.2.46 2 Unknown [id number] 2.16.840.1.419387.3.579.2.46 2 Unknown [id number] 2.16.840.1.231387.3.579.2.46 2 Unknown [id number] 2.16.840.1.451421.3.579.2.46 2 Unknown [id number] 2.16.840.1.203032.3.579.2.46 2 Unknown [id number] 2.16.840.1.575727.3.579.2.46 2 Unknown [id number] 2.16.840.1.542561.3.579.2.46 2 Unknown [id number] 2.16.840.1.575627.3.579.2.46 2 Unknown [id number] 2.16.840.1.332646.3.579.2.46 2 Unknown [id number] 2.16.840.1.108536.3.579.2.46 2 Social History Date Type Detail Facility Start: 05-17-2023 End: 02-11-2025 Tobacco smoking status NHIS Ex-smoker [facility] Work Phone: End: 08-12-1987 History of tobacco use Current smoker [facility] Start: 04-09-2022 End: 05-17-2023 Alcohol intake Current non-drinker of alcohol (finding) [facility] Start: 1955 Sex Assigned At Not on file [facility] Start: 03-30-2022 End: 04-09-2022 Exposure to SARS-CoV-2 (event) Not sure [facility] Start: 05-20-2022 End: 12-19-2023 Tobacco smoking status SDIS Unknown if ever smoked [facility] Start: 1955 Sex Assigned At Female [facility] End: 08-12-1987 History of tobacco use Cigarette Smoker [facility] Start: 05-17-2023 Tobacco use and exposure Smokeless tobacco non-user [facility] Start: 12-10-2022 End: 05-17-2023 History of Social function [facility] Start: 12-10-2022 End: 05-17-2023 Tobacco use panel [facility] National Score (1-100), lower number is lower risk 68 [facility] Medical Equipment Procedure Code Equipment Code Equipment Origin al Text Equipment Identifier Dates Lens Acrysof 6mm +21.5 Diopter 10 D Biconvex Blue Acrylic 13mm Iol - [id number] Start: 04-27-2021 Comment on above: Description: -1.5 Goals Date Patient Goal Desired Activity /State Clinical Notes 04-09-2022 to 02-11-2025 Note Date & Type Note Facility 02-11-2025 Evaluation note Diagnosis Onset Date Resolution Segmental and somatic dysfunction of cervical region acute February 11, 2025 1:38pm Segmental and somatic dysfunction of lumbar region acute February 11, 2025 1:38pm Segmental and somatic dysfunction of pelvic region acute February 11, 2025 1:38pm Segmental and somatic dysfunction of thoracic region acute February 11, 2025 1:38pm Cervical pain chronic February 11, 2025 1:38pm Degenerative disc disease, cervical chronic February 11 1:38pm 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 chronic February 11, 2025 1:38pm Segmental and somatic dysfunction of cervical region acute March 11, 2025 1:05pm Segmental and somatic dysfunction of lumbar region acute March 11, 2025 1:05pm Segmental and somatic dysfunction of pelvic region acute March 11, 2025 1:05pm Segmental and somatic dysfunction of thoracic region acute March 11, 2025 1:05pm Degenerative disc disease, cervical chronic March 11 1:05pm 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 chronic March 11, 2025 1:05pm Segmental and somatic dysfunction of cervical region acute April 09, 2025 1:42pm Segmental and somatic dysfunction of lumbar region acute April 09, 2025 1:42pm Segmental and somatic dysfunction of pelvic region acute April 09, 2025 1:42pm Segmental and somatic dysfunction of thoracic region acute April 09, 2025 1:42pm Cervical pain chronic April 09, 025 1:42pm Degenerative disc disease, cervical chronic April 09, 2025 1:42pm Neck pain acute May 06 12:54pm Segmental and somatic dysfunction of cervical region acute May 06, 2025 12:54pm Segmental and somatic dysfunction of lumbar region acute May 06, 2025 12:54pm Segmental and somatic dysfunction of pelvic region acute May 06, 2025 12:54pm Segmental and somatic dysfunction of thoracic region acute May 06, 2025 12:54pm Degenerative disc disease, cervical chronic May 06 12:54pm [facility] Work Phone: 1(380) 434-487302-27-2025 Evaluation note* Diagnosis Onset Date Resolution Status Admit Date Cervical pain acute January 102024 11:51am Segmental and somatic dysfunction of cervical region acute F ebruary 2024 11:51am Segmental and somatic dysfunction of lumbar region acute Feb ruary 2024 11:51am Segmental and somatic dysfunction of pelvic region acute Feb ruary 2024 11:51am Segmental and somatic dysfunction of thoracic region acute F ebruary 2024 11:51am Disorder of intervertebral d isc at C5-C6 level with radiculopathy chronic January 10, 2 025 11:51am Cervical pain acute February 11, 2025 1:38pm Segmental and somatic dysfunction of cervical region acute M arch 2024 1:38pm Segmental and somatic dysfunction of lumbar region acute [facility] 2024 1:38pm Segmental and somatic dysfunction of pelvic region acute [facility] 2024 1:38pm Segmental and somatic dysfunction of thoracic region acute [facility] 2024 1:38pm Degenerative disc disease, cervical chronic February 11, 2025 1:38pm Disorder of intervertebral d isc at C5-C6 level with radiculopathy chronic February 11, 2025 1:38pm Segmental and somatic dysfunction of cervical region acute A pril 2024 1:05pm Segmental and somatic dysfunction of lumbar region acute Apr [place] 2024 1:05pm Segmental and somatic dysfunction of pelvic region acute Apr [facility] 2024 1:05pm Segmental and somatic dysfunction of thoracic region [facility] 1:05[facility] Degenerative disc disease, cervical chronic March 11, 2025 1:05pm Disorder of intervertebral d isc at C5-C6 level with radiculopathy chronic March 11, 2025 1:05pm [facility] Work Phone: 1(548) 621-275002-27-2025 Evaluation note* Diagnosis Onset Date Resolution Status Admit Date Cervical pain acute January 102024 11:51am Segmental and somatic dysfunction of cervical region acute [facility] 2024 11:51am Segmental and somatic dysfunction of lumbar region [place] 20[place] 11:51am Segmental and somatic dysfunction of pelvic region acute Feb [facility] 2024 11:51am Segmental and somatic dysfunction of thoracic region acute [facility] 2024 11:51am Disorder of intervertebral d isc at C5-C6 level with radiculopathy chronic January 10, 025 11:51am Cervical pain acute February 11, 2025 1:38pm Segmental and somatic dysfunction of cervical region acute [facility] 2024 1:38pm Segmental and somatic dysfunction of lumbar region acute [facility] 2024 1:38pm Segmental and somatic dysfunction of pelvic region acute [facility] 2024 1:38pm Segmental and somatic dysfunction of thoracic region acute [facility] 2024 1:38pm Degenerative disc disease, cervical chronic February 11, 2025 1:38pm Disorder of intervertebral d isc at C5-C6 level with radiculopathy chronic February 11, 2025 1:38pm Segmental and somatic dysfunction of cervical region acute A pril 2024 1:05pm Segmental and somatic dysfunction of lumbar region acute Apr [place] 2024 1:05pm Segmental and somatic dysfunction of pelvic region acute Apr 2024 1:05pm Segmental and somatic dysfunction of thoracic region acute A pril 2024 1:05pm Degenerative disc disease, cervical chronic March 11, 2025 1:05pm Disorder of intervertebral d isc at C5-C6 level with radiculopathy chronic March 11, 2025 1:05pm Segmental and somatic dysfunction of cervical region acute M ay 2024 1:42pm Segmental and somatic dysfunction of lumbar region acute April 09, 2025 1:42pm Segmental and somatic dysfunction of pelvic region acute April 09, 2025 1:42pm Segmental and somatic dysfunction of thoracic region acute M 2024 1:42pm Degenerative disc disease, cervical chronic April 09, 2025 1 :42pm Disorder of intervertebral d isc at C5-C6 level with radiculopathy chronic April 09, 2025 1 :42pm [facility] Work Phone: 1(943) 292-546002-27-2025 Evaluation note* Diagnosis Onset Date Resolution Status Admit Date Segmental and somatic dysfunction of cervical region acute F ebruary 2024 11:51am Segmental and somatic dysfunction of lumbar region acute Feb ruary 2024 11:51am Segmental and somatic dysfunction of pelvic region acute Feb ruary 2024 11:51am Segmental and somatic dysfunction of thoracic region acute F ebruary 2024 11:51am Cervical pain chronic January 102024 11:51am Disorder of intervertebral d isc at C5-C6 level with radiculopathy chronic January 10, 11:51am Segmental and somatic dysfunction of cervical region acute M [place] 2024 1:38pm Segmental and somatic dysfunction of lumbar region acute Mar 2024 1:38pm Segmental and somatic dysfunction of pelvic region acute [facility] 2024 1:38pm Segmental and somatic dysfunction of thoracic region acute M arch 2024 1:38pm Cervical pain chronic February 11, 2025 1:38pm Degenerative disc disease, cervical chronic February 11, 2025 1:38pm Disorder of intervertebral d isc at C5-C6 level with radiculopathy chronic February 11, 2025 1:38pm Segmental and somatic dysfunction of cervical region acute A pril 2024 1:05pm Segmental and somatic dysfunction of lumbar region acute Apr [place] 2024 1:05pm Segmental and somatic dysfunction of pelvic region acute Apr il 2024 1:05pm Segmental and somatic dysfunction of thoracic region acute A pril 2024 1:05pm Degenerative disc disease, cervical chronic March 11, 2025 1:05pm Disorder of intervertebral d isc at C5-C6 level with radiculopathy chronic March 11, 2025 1:05pm Segmental and somatic dysfunction of cervical region acute M ay 2024 1:42pm Segmental and somatic dysfunction of lumbar region acute April 09, 2025 1:42pm Segmental and somatic dysfunction of pelvic region acute April 09, 2025 1:42pm Segmental and somatic dysfunction of thoracic region acute ay 2024 1:42pm Cervical pain chronic April 09, 025 1:42pm Degenerative disc disease, cervical chronic April 09, 2025 1 :42pm Segmental and somatic dysfunction of cervical region acute J une 2024 12:54pm Segmental and somatic dysfunction of lumbar region acute Glenn e 2024 12:54pm Segmental and somatic dysfunction of pelvic region acute Glenn e 2024 12:54pm Segmental and somatic dysfunction of thoracic region acute J une 2024 12:54pm Degenerative disc disease, cervical chronic May 06, 2025 12:54pm [facility] Work Phone: 1(819) 208-385207-06-2023 NotePatient Outreach ([facility]) RACHELLE CHAMPION ([id number]) 1955 F Date Time Provider Department 05/19/23 PCP (HISTORICAL) [facility] During your visit today, we recorded the following information about you: Cheryl Walshdylon 05/19/2023 10:00 AM Signed POPULATION HEALTH NAVIGATION OUTREACH Action/FYI 1st call, pt seeing someone outside of [facility] Patient Identified by Name and : YES, via phone Outreach Outcome/Action Spoke to patient / parent / legal guardian: Patient declined Did you use a PCP flex slot to schedule this appointment? No Reason for Outreach Care Gap or Scheduling/Wellness visits Payer: Payor: [facility] MEDICARE / Plan: [employer] HMO / Product Type: HMO / [...] - Unknown Date Reviewed: 05/17/2023 Reviewed by: Scooby Henson APRN.LEAD SYSTEMS ARCHITECT - Fully Assessed Prescriptions as of 05/19/2023 - Sload-2-WDE-EPA-Fish Oil 300-1,000 mg cap Take by mouth once daily. - ergocalciferol, vitamin D2, (VITAMIN D2 ORAL) Take by mouth once daily. - COQ10, LIPOSOMAL UBIQUINOL, ORAL Take by mouth once daily. - glucosamine/msm/csa/amelia/qkz590 (RJNYWNTZNN-NEBWI-IZV-AMELIA-115HC ORAL) Take by mouth once daily. - [...] 07/16/2010 Encounter Status:Closed by CHERYL HENLEY on 05/19/23[facility] 05-19-2023 NoteHNO ID: [id number] Author: Cheryl Henley Service: ? Author Type: [...] Payer: Payor: MMO MEDICARE / Plan: [employer] HMO / Product Type: HMO / Care [...] Signature: Cheryl Henley May 19, 2023 10:00 [facility]07-06-2023 History of Present illness Narrative* Cheryl Jandylon - 05/19/2023 10:00 AM EDT POPULATION HEALTH NAVIGATION OUTREACH Action/FYI 1st call, pt seeing someone outside of [facility] Patient Identified by Name and : YES, via phone Outreach Outcome/Action Spoke to patient / parent / legal guardian: Patient declined Did you use a PCP flex slot to schedule this appointment? No Reason for Outreach Care Gap or Scheduling/Wellness visits Payer: Payor: MMO MEDICARE / Plan: [employer] HMO / Product Type: HMO / Care [...] 19, 2023 10:00 AM [facility] Miscellaneous Notes* Telephone Encounter - Amanda Fay - 05/18/2023 2:43 PM EDT Patient given results and verbalized understanding of instructions given. Amanda Fay * Telephone Encounter - Asher Garcia PA-C - 05/18/2023 9:09 AM EDT Please call patient and let her know her x-ray showed no fractures. She does have an incidental heel spur as well as a mild bunion on her x-rays these are not likely causing her symptoms. Follow-up with podiatry if not improving. documented in this encounterM[facility]23 NoteHNO ID: [id number] Author: RT Aureliano(Emeli) Service: Nuclear Medicine Author Type: Technologist Type: Progress Notes Filed: 05/18/2023 8:57 AM Note Text: Radiology Service Progress Note PATIENT NAME: Rachelel Champion DATE OF SERVICE: May 18, 2023 [...] BY: RT Aureliano(R) May 18, 2023 8:47 [facility]07-05-2023 History of Present illness Narrative* Sushma Del Cid RT(R) - 05/18/2023 8:50 AM EDT Radiology Service Progress Note PATIENT NAME: Rachelle Champion DATE OF SERVICE: May 18, 2023 TIME: 8:47 AM PATIENT IDENTITY VERIFICATION COMPLETED USING TWO (2) IDENTIFIERS: Name and Date of confirmedby patient verbally. FALL SCREENING: Has the patient had 2 falls in the last year or 1 fall with injury or currently using an Ambulatory Assistive Device (Walker, Cane, Wheelchair, Crutches, etc.)? No PATIENT GENDER DATA: Female. status: : No status: NO. PATIENT RELEVANT IMPLANT DATA REVIEWED: Not Applicable RADIOLOGY DEPARTMENT: General X-ray: Exam(s) Completed: Lower Extremity X- Ray(s): Ankle, Right and Wt. Bearing and Foot, Right and Wt. Bearing PERIPHERAL IV DATA: Not applicable SIGNED BY: RT Aureliano(R) May 18, 2023 8:47 AM documented in this encounterM[facility]07-04-2023 NoteHNO ID: [id number] Author: Scooby Henson APRN.LEAD SYSTEMS ARCHITECT Service: ? Author Type: Nurse Practitioner Type: [...] Date Allergic rhinitis Detached retina, right Glaucoma Kcrhlby-ogscios-bthdjwps syndrome of right eye PAST SURGICAL HISTORY Procedure Laterality Date ARTHROSCOPY KNEE; W/ FIXATION bone spur left, torn meniscus on right EXCHANGE OF INTRAOCULAR LENS S/p IOL Exchange/PPV OD:04/27/2021 PAST SURGICAL HISTORY OF LASIK both eyes. VAGINAL HYSTERECTOMY UTERUS 250 GM/< Hysterectomy, vaginal VITRECTOMY,MECHANICAL S/p IOL Exchange/PPV OD:04/27/2021 ALLERGIES Adhesive, Penicillins, Seasonal Allergies, and Xarelto [Rivaroxaban] MEDICATIONS Comad-0-AHC-EPA-Fish Oil 300-1,000 mg cap Take by mouth once daily. ergocalciferol, vitamin D2, (VITAMIN D2 ORAL) Take by mouth once daily. COQ10, LIPOSOMAL UBIQUINOL, ORAL Take by mouth once daily. glucosamine/msm/csa/amelia/arn679 (TMCEKIZDXE-WLKCH-OHB-AMELIA-115HC ORAL) Take by mouth once daily. prednisoLONE [...] tenderness or bony tende (more content not included)...[facility]07-04-2023 History of Present illness Narrative* Scooby Henson APRN.[facility] - 05/17/2023 8:26 AM EDT Subjective HPI Nontoxic-appearing female presents urgent care [...] productive cough chest pain shortness of breath pleurit ic pain hemoptysis nausea vomiting abdominal pain change in bowel or bladder habits. Past medical history prescription medication use and allergies reviewed. .Patient presents with: right foot pain: Right foot pain x 1 week-cannot recall an injury PAST MEDICAL HISTORY Diagnosis Date Allergic rhinitis Detached retina, right Glaucoma Gfrlkpy-sactfdg-abdulvyy syndrome of right eye PAST SURGICAL HISTORY Procedure Laterality Date ARTHROSCOPY KNEE; W/ FIXATION bone spur left, torn meniscus on right EXCHANGE OF INTRAOCULAR LENS S/p IOL Exchange/PPV OD:04/27/2021 PAST SURGICAL HISTORY OF LASIK both eyes. VAGINAL HYSTERECTOMY UTERUS 250 GM/< Hysterectomy, vaginal VITRECTOMY,MECHANICAL S/p IOL Exchange/PPV OD:04/27/2021 ALLERGIES Adhesive, Penicillins, Seasonal Allergies, and Xarelto [Rivaroxaban] MEDICATIONS Fnxbz-3-DZR-EPA-Fish Oil 300-1,000 mg cap Take by mouth once daily. ergocalciferol, vitamin D2, (VITAMIN D2 ORAL) Take by mouth once daily. COQ10, LIPOSOMAL UBIQUINOL, ORAL Take by mouth once daily. glucosamine/msm/csa/amelia/vls171 (PEIDCUFRNO-RPBRO-LLM-AMELIA-115HC ORAL) Take by mouth once daily. prednisoLONE [...] Drop in the right eye twice daily. (Patientnot taking: Reported on 05/22/2021 ) dorzolamide-timolol (COSOPT) [...] ecchymosis. Tenderness present over the lateral malleolus. Normalrange of motion. Right Achilles Tendon: No tenderness. Right foot: Normal range of motion and normal capillary refill. Swelling present. No deformity, tenderness or bony tenderness. Comments: Edema noted over lateral malleolus. Neurovascular intact. No erythema. No breaks in skin.No evidence of infection. No joint laxity noted [...] of care. This note was generated using Moozey software. It may contain errors in wording, punctuation, or spelling. Scooby Henson APRN.RAIN documented in this encounterM[facility] Hospital05-27-2022 Instructions* Patient Instructions* Marium Elam V, MD - 04/09/2022 4:14 PM EDT Please follow-up with Dr. Elam for your next eye exam if you have been advised to do so. If you notice any sudden changes to your vision, eye pain, eye redness or irritation, please do nothesitate to call our office to schedule an earlier appointment. To schedule during office hours, call [phone] After office hours you may call [phone] and ask to speak with the carton filling machine operator benefits analyst. documented in this encounterM[facility]05-27-[facility]22 History of Present illness Narrative* Marium Elam V, MD - 04/09/2022 4:11 PM EDT No changes to health or vision since last examination. POHx: s/p LASIK Both Eyes 2006, RRD OD 2007 s/p PPV (Dr. Wayne) with subsequent CEIOL (Dr. Askew) and followed by repeat PPV (unclear if re- detached), also s/p ?Trab 2007 (Dr. Askew). 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 Clarence Wayne (retina specialist in [place]) - unclear what indication was for second PPV, the records indicate possible ERM. Does not appear tohave any history of SB or silicone oil [...] to RD/CEIOL (see above) - Unsure which benefits analyst but pt thinks she could find out [...] and plan as stated above and agree withall of its relevant components. 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 Pseudophakia Lens replaced by other means documented [facility]* Diagnosis Onset Date Resolution Status Segmental and somatic dysfunction of cervical region acute Segmental and somatic dysfunction of lumbar region acute Segmental and somatic dysfunction of pelvic region acute Segmental and somatic dysfunction of thoracic region acute Disorder of intervertebral d isc at C5-C6 level with radiculopathy chronic Segmental and somatic dysfunction of cervical region acute Segmental and somatic dysfunction of lumbar region acute Segmental and somatic dysfunction of pelvic region acute Segmental and somatic dysfunction of thoracic region acute Disorder of intervertebral d isc at C5-C6 level with radiculopathy chronic Segmental and somatic dysfunction of cervical region acute Segmental and somatic dysfunction of lumbar region acute Segmental and somatic dysfunction of pelvic region acute Segmental and somatic dysfunction of thoracic region acute Disorder of intervertebral d isc at C5-C6 level with radiculopathy chronic Segmental and somatic dysfunction of cervical region acute Segmental and somatic dysfunction of lumbar region acute Segmental and somatic dysfunction of pelvic region acute Segmental and somatic dysfunction of thoracic region acute Disorder of intervertebral d isc at C5-C6 level with radiculopathy chronic Back pain noneactive [facility] Work Phone: Evaluation note* Diagnosis Onset Date Resolution Status Segmental and somatic dysfunction of cervical region acute Segmental and somatic dysfunction of lumbar region acute Segmental and somatic dysfunction of pelvic region acute Segmental and somatic dysfunction of thoracic region acute Disorder of intervertebral d isc at C5-C6 level with radiculopathy chronic Back pain noneactive Degenerative disc disease, cervical acute Segmental and somatic dysfunction of cervical region acute Segmental and somatic dysfunction of lumbar region acute Segmental and somatic dysfunction of pelvic region acute Segmental and somatic dysfunction of thoracic region acute Disorder of intervertebral d isc at C5-C6 level with radiculopathy chronic Back pain noneactive Segmental and somatic dysfunction of cervical region acute Segmental and somatic dysfunction of lumbar region acute Segmental and somatic dysfunction of pelvic region acute Segmental and somatic dysfunction of thoracic region acute Disorder of intervertebral d isc at C5-C6 level with radiculopathy chronic Back pain noneactive [facility] Work Phone: Evaluation note* Diagnosis Onset Date Resolution Status Segmental and somatic dysfunction of cervical region acute Segmental and somatic dysfunction of lumbar region acute Segmental and somatic dysfunction of pelvic region acute Segmental and somatic dysfunction of thoracic region acute Disorder of intervertebral d isc at C5-C6 level with radiculopathy chronic Back pain noneactive Segmental and somatic dysfunction of cervical region acute Segmental and somatic dysfunction of lumbar region acute Segmental and somatic dysfunction of pelvic region acute Segmental and somatic dysfunction of thoracic region acute Disorder of intervertebral d isc at C5-C6 level with radiculopathy chronic Back pain noneactive Segmental and somatic dysfunction of cervical region acute Segmental and somatic dysfunction of lumbar region acute Segmental and somatic dysfunction of pelvic region acute Segmental and somatic dysfunction of thoracic region acute Disorder of intervertebral d isc at C5-C6 level with radiculopathy chronic Back pain noneactive [facility] Work Phone: Evaluation note* Diagnosis Onset Date Resolution Status Segmental and somatic dysfunction of cervical region acute Segmental and somatic dysfunction of lumbar region acute Segmental and somatic dysfunction of pelvic region acute Segmental and somatic dysfunction of thoracic region acute Disorder of intervertebral d isc at C5-C6 level with radiculopathy chronic Back pain noneactive Segmental and somatic dysfunction of cervical region acute Segmental and somatic dysfunction of lumbar region acute Segmental and somatic dysfunction of pelvic region acute Segmental and somatic dysfunction of thoracic region acute Disorder of intervertebral d isc at C5-C6 level with radiculopathy chronic Back pain noneactive Segmental and somatic dysfunction of cervical region acute Segmental and somatic dysfunction of lumbar region acute Segmental and somatic dysfunction of pelvic region acute Segmental and somatic dysfunction of thoracic region acute Disorder of intervertebral d isc at C5-C6 level with radiculopathy chronic Back pain noneactive Segmental and somatic dysfunction of cervical region acute Segmental and somatic dysfunction of lumbar region acute Segmental and somatic dysfunction of pelvic region acute Segmental and somatic dysfunction of thoracic region acute Disorder of intervertebral d isc at C5-C6 level with radiculopathy chronic Back pain noneactive [facility] Work Phone: Evaluation note* Diagnosis Foot pain, right- Primary Pain in limb Acute right ankle pain documented [facility]* Diagnosis Acute right ankle pain- Primary [facility]* Diagnosis Onset Date Resolution Status Segmental and somatic dysfunction of cervical region acute Segmental and somatic dysfunction of lumbar region acute Segmental and somatic dysfunction of pelvic region acute Segmental and somatic dysfunction of thoracic region acute Disorder of intervertebral d isc at C5-C6 level with radiculopathy chronic Back pain noneactive Segmental and somatic dysfunction of cervical region acute Segmental and somatic dysfunction of lumbar region acute Segmental and somatic dysfunction of pelvic region acute Segmental and somatic dysfunction of thoracic region acute Disorder of intervertebral d isc at C5-C6 level with radiculopathy chronic Back pain noneactive Segmental and somatic dysfunction of cervical region acute Segmental and somatic dysfunction of lumbar region acute Segmental and somatic dysfunction of pelvic region acute Segmental and somatic dysfunction of thoracic region acute Disorder of intervertebral d isc at C5-C6 level with radiculopathy chronic Back pain noneactive Segmental and somatic dysfunction of cervical region acute Segmental and somatic dysfunction of lumbar region acute Segmental and somatic dysfunction of pelvic region acute Segmental and somatic dysfunction of thoracic region acute Disorder of intervertebral d isc at C5-C6 level with radiculopathy chronic Back pain noneactive Hemorrhoids noneactive [facility] Work Phone: Evaluation note* Diagnosis Onset Date Resolution Status Segmental and somatic dysfunction of cervical region acute Segmental and somatic dysfunction of lumbar region acute Segmental and somatic dysfunction of pelvic region acute Segmental and somatic dysfunction of thoracic region acute Disorder of intervertebral d isc at C5-C6 level with radiculopathy chronic Back pain noneactive Segmental and somatic dysfunction of cervical region acute Segmental and somatic dysfunction of lumbar region acute Segmental and somatic dysfunction of pelvic region acute Segmental and somatic dysfunction of thoracic region acute Disorder of intervertebral d isc at C5-C6 level with radiculopathy chronic Back pain noneactive Segmental and somatic dysfunction of cervical region acute Segmental and somatic dysfunction of lumbar region acute Segmental and somatic dysfunction of pelvic region acute Segmental and somatic dysfunction of thoracic region acute Disorder of intervertebral d isc at C5-C6 level with radiculopathy chronic Back pain noneactive Hemorrhoids noneactive Segmental and somatic dysfunction of cervical region acute Segmental and somatic dysfunction of lumbar region acute Segmental and somatic dysfunction of pelvic region acute Segmental and somatic dysfunction of thoracic region acute Disorder of intervertebral d isc at C5-C6 level with radiculopathy chronic Back pain noneactive [facility] Work Phone: Evaluation note* Diagnosis Onset Date Resolution Status Segmental and somatic dysfunction of cervical region acute Segmental and somatic dysfunction of lumbar region acute Segmental and somatic dysfunction of pelvic region acute Segmental and somatic dysfunction of thoracic region acute Disorder of intervertebral d isc at C5-C6 level with radiculopathy chronic Back pain noneactive Segmental and somatic dysfunction of cervical region acute Segmental and somatic dysfunction of lumbar region acute Segmental and somatic dysfunction of pelvic region acute Segmental and somatic dysfunction of thoracic region acute Disorder of intervertebral d isc at C5-C6 level with radiculopathy chronic Back pain noneactive Segmental and somatic dysfunction of cervical region acute Segmental and somatic dysfunction of lumbar region acute Segmental and somatic dysfunction of pelvic region acute Segmental and somatic dysfunction of thoracic region acute Disorder of intervertebral d isc at C5-C6 level with radiculopathy chronic Back pain noneactive Segmental and somatic dysfunction of cervical region acute Segmental and somatic dysfunction of lumbar region acute Segmental and somatic dysfunction of pelvic region acute Segmental and somatic dysfunction of thoracic region acute Disorder of intervertebral d isc at C5-C6 level with radiculopathy chronic Back pain noneactive Segmental and somatic dysfunction of cervical region acute Segmental and somatic dysfunction of lumbar region acute Segmental and somatic dysfunction of pelvic region acute Segmental and somatic dysfunction of thoracic region acute Disorder of intervertebral d isc at C5-C6 level with radiculopathy chronic Back pain noneactive [facility] Work Phone: Evaluation note* Diagnosis Foot pain, right Pain in limb Acute right ankle pain documented in this encounter [facility] for referral (narrative)* Diagnostic Procedure Only (Urgent) - Pending Review Specialty Diagnoses / Procedures Referred By Lukasz t Referred To Contact XR IMAGING Diagnoses Foot pain, right Acute right ankle pain Procedures XR ANKLE GENERAL 3V AP/LAT/OBL RIGHT RADEX ANKLE COMPLETE MINIMUM 3 VIEWS Scooby Henson APRN.LEAD SYSTEMS ARCHITECT [address] [place] [address] Xr Imaging Referral ID Status Reason Start Date Expiration Date Visits Requested Visits Authorized [id number] Pending Review Auto-Generat ed Referral 05/17/2023 2024 1 1 * Diagnostic Procedure Only (Urgent) - Pending Review Specialty Diagnoses / Procedures Referred By Contac t Referred To Contact XR IMAGING Diagnoses Foot pain, right Acute right ankle pain Procedures XR FOOT GENERAL 3V AP/LAT/OBL RIGHT RADEX FOOT COMPLETE MINIMUM 3 VIEWS Scooby Henson APRN.LEAD SYSTEMS ARCHITECT [address] [place] [address] Xr Imaging Referral ID Status Reason Start Date Expiration Date Visits Requested Visits Authorized [id number] Pending Review Auto-Generat ed Referral 05/17/2023 2024 1 1 [facility] for referral (narrative)* Diagnostic Procedure Only (Urgent) - Closed Specialty Diagnoses / Procedures Referred By Contac t Referred To Contact XR IMAGING Diagnoses Foot pain, right Acute right ankle pain Procedures XR ANKLE GENERAL 3V AP/LAT/OBL RIGHT RADEX ANKLE COMPLETE MINIMUM 3 VIEWS Scooby Henson APRN.LEAD SYSTEMS ARCHITECT [address] [place] [address] [place] [address] Referral ID Status Reason Start Date Expiration Date V isits Requested Visits Authorized [id number] Closed Auto-Generate d Referral 05/17/2023 2024 1 1 * Diagnostic Procedure Only (Urgent) - Closed Specialty Diagnoses / Procedures Referred By Contac t Referred To Contact XR IMAGING Diagnoses Foot pain, right Acute right ankle pain Procedures XR FOOT GENERAL 3V AP/LAT/OBL RIGHT RADEX FOOT COMPLETE MINIMUM 3 VIEWS Scooby Henson APRN.LEAD SYSTEMS ARCHITECT [address] [place] [address] [place] [address] Referral ID Status Reason Start Date Expiration Date V isits Requested Visits Authorized [id number] Closed Auto-Generate d Referral 05/17/2023 2024 1 1 [facility]No reason for referral information availableWKnox Community [facility] Work Phone: Reason for visit Narrative* Diagnostic Procedure Only (Urgent) - Closed Specialty Diagnoses / Procedures Referred By Lukasz t Referred To Contact XR IMAGING Diagnoses Foot pain, right Acute right ankle pain Procedures XR ANKLE GENERAL 3V AP/LAT/OBL RIGHT RADEX ANKLE COMPLETE MINIMUM 3 VIEWS Scooby Henson APRN.LEAD SYSTEMS ARCHITECT [address] [place] [address] [place] [address] Referral ID Status Reason Start Date Expiration Date V isits Requested Visits Authorized [id number] Closed Auto-Generate d Referral 05/17/2023 2024 1 1 [facility] Medications Administered Section Active Administered Medications [...] Documents on File Type Date Recorded 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 Advance Directive(s) 04/20/2021 12:16 PM co le eye Chief Complaint and Reason for Visit Chief Complaint Adjustment adjustment Back pain Back pain HEADACHE Reason for Visit Segmental and somati c dysfunction of cervical region Segmental and somatic dysfunction of lumbar region Segmental and somatic dysfunction of pelvic region Segmental and somatic dysfunction of thoracic region 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 Segmental and somatic dysfunction of cervical region Segmental and somatic dysfunction of lumbar region Segmental and somatic dysfunction of pelvic region Segmental and somatic dysfunction of thoracic region 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 Segmental and somatic dysfunction of cervical region Segmental and somatic dysfunction of lumbar region Segmental and somatic dysfunction of pelvic region Segmental and somatic dysfunction of thoracic region 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 Segmental and somatic dysfunction of cervical region Segmental and somatic dysfunction of lumbar region Segmental and somatic dysfunction of pelvic region Segmental and somatic dysfunction of thoracic region 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 Back pain Chief Complaint HEADACHE Back pain cervical spine xray Back pain Back pain RTK/PT HAS RX Reason for Visit Segmental and somati c dysfunction of cervical region Segmental and somatic dysfunction of lumbar region Segmental and somatic dysfunction of pelvic region Segmental and somatic dysfunction of thoracic region 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 Back pain Degenerative disc disease, cervical Segmental and somatic dysfunction of cervical region Segmental and somatic dysfunction of lumbar region Segmental and somatic dysfunction of pelvic region Segmental and somatic dysfunction of thoracic region 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 Back pain Segmental and somatic dysfunction of cervical region Segmental and somatic dysfunction of lumbar region Segmental and somatic dysfunction of pelvic region Segmental and somatic dysfunction of thoracic region 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 Back pain Chief Complaint Back pain Back pain RTK/PT HAS RX Back pain RIGHT LOWER EXT Z96.651 Reason for Visit Segmental and somati c dysfunction of cervical region Segmental and somatic dysfunction of lumbar region Segmental and somatic dysfunction of pelvic region Segmental and somatic dysfunction of thoracic region 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 Back pain Segmental and somatic dysfunction of cervical region Segmental and somatic dysfunction of lumbar region Segmental and somatic dysfunction of pelvic region Segmental and somatic dysfunction of thoracic region 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 Back pain Segmental and somatic dysfunction of cervical region Segmental and somatic dysfunction of lumbar region Segmental and somatic dysfunction of pelvic region Segmental and somatic dysfunction of thoracic region 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 Back pain Chief Complaint RTK/PT HAS RX Back pain RIGHT LOWER EXT Z96.651 Back pain Back pain Back pain Reason for Visit Segmental and somati c dysfunction of cervical region Segmental and somatic dysfunction of lumbar region Segmental and somatic dysfunction of pelvic region Segmental and somatic dysfunction of thoracic region 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 Back pain Segmental and somatic dysfunction of cervical region Segmental and somatic dysfunction of lumbar region Segmental and somatic dysfunction of pelvic region Segmental and somatic dysfunction of thoracic region 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 Back pain Segmental and somatic dysfunction of cervical region Segmental and somatic dysfunction of lumbar region Segmental and somatic dysfunction of pelvic region Segmental and somatic dysfunction of thoracic region 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 Back pain Segmental and somatic dysfunction of cervical region Segmental and somatic dysfunction of lumbar region Segmental and somatic dysfunction of pelvic region Segmental and somatic dysfunction of thoracic region 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 Back pain Chief Complaint Back pain Back pain Back pain BACK PAIN SEE ORDER Reason for Visit Segmental and somati c dysfunction of cervical region Segmental and somatic dysfunction of lumbar region Segmental and somatic dysfunction of pelvic region Segmental and somatic dysfunction of thoracic region 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 Back pain Segmental and somatic dysfunction of cervical region Segmental and somatic dysfunction of lumbar region Segmental and somatic dysfunction of pelvic region Segmental and somatic dysfunction of thoracic region 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 Back pain Segmental and somatic dysfunction of cervical region Segmental and somatic dysfunction of lumbar region Segmental and somatic dysfunction of pelvic region Segmental and somatic dysfunction of thoracic region 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 Back pain Segmental and somatic dysfunction of cervical region Segmental and somatic dysfunction of lumbar region Segmental and somatic dysfunction of pelvic region Segmental and somatic dysfunction of thoracic region 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 Back pain Chief Complaint ADJUSTMENT/DRY NEEDL ING ADJUSTMENT/DRY NEEDLING DRY NEEDLING/ADJUSTMENT DRY NEEDLING/ADJUSTMENT XRAY Hemorrhoids Reason for Visit Segmental and somati c dysfunction of cervical region Segmental and somatic dysfunction of lumbar region Segmental and somatic dysfunction of pelvic region Segmental and somatic dysfunction of thoracic region 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 Back pain Segmental and somatic dysfunction of cervical region Segmental and somatic dysfunction of lumbar region Segmental and somatic dysfunction of pelvic region Segmental and somatic dysfunction of thoracic region 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 Back pain Segmental and somatic dysfunction of cervical region Segmental and somatic dysfunction of lumbar region Segmental and somatic dysfunction of pelvic region Segmental and somatic dysfunction of thoracic region 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 Back pain Segmental and somatic dysfunction of cervical region Segmental and somatic dysfunction of lumbar region Segmental and somatic dysfunction of pelvic region Segmental and somatic dysfunction of thoracic region 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 Back pain Hemorrhoids Chief Complaint ADJUSTMENT/DRY NEEDL ING DRY NEEDLING/ADJUSTMENT DRY NEEDLING/ADJUSTMENT XRAY Hemorrhoids SCREENING DRY NEEDLING/ADJUSTMENT Reason for Visit Segmental and somati c dysfunction of cervical region Segmental and somatic dysfunction of lumbar region Segmental and somatic dysfunction of pelvic region Segmental and somatic dysfunction of thoracic region 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 Back pain Segmental and somatic dysfunction of cervical region Segmental and somatic dysfunction of lumbar region Segmental and somatic dysfunction of pelvic region Segmental and somatic dysfunction of thoracic region 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 Back pain Segmental and somatic dysfunction of cervical region Segmental and somatic dysfunction of lumbar region Segmental and somatic dysfunction of pelvic region Segmental and somatic dysfunction of thoracic region 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 Back pain Hemorrhoids Segmental and somatic dysfunction of cervical region Segmental and somatic dysfunction of lumbar region Segmental and somatic dysfunction of pelvic region Segmental and somatic dysfunction of thoracic region 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 Back pain Chief Complaint DRY NEEDLEING/ADJUST MENT DRY NEEDLING/ADJUSTMENT DRY NEEDLING/ADJUSTMENT DRY NEEDLING/ADJUSTMENT DRY NEEDLING/ADJUSTMENT Reason for Visit Segmental and somati c dysfunction of cervical region Segmental and somatic dysfunction of lumbar region Segmental and somatic dysfunction of pelvic region Segmental and somatic dysfunction of thoracic region 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 Back pain Segmental and somatic dysfunction of cervical region Segmental and somatic dysfunction of lumbar region Segmental and somatic dysfunction of pelvic region Segmental and somatic dysfunction of thoracic region 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 Back pain Segmental and somatic dysfunction of cervical region Segmental and somatic dysfunction of lumbar region Segmental and somatic dysfunction of pelvic region Segmental and somatic dysfunction of thoracic region 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 Back pain Segmental and somatic dysfunction of cervical region Segmental and somatic dysfunction of lumbar region Segmental and somatic dysfunction of pelvic region Segmental and somatic dysfunction of thoracic region 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 Back pain Segmental and somatic dysfunction of cervical region Segmental and somatic dysfunction of lumbar region Segmental and somatic dysfunction of pelvic region Segmental and somatic dysfunction of thoracic region 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 Back pain Chief Complaint Admit Date DRY NEEDLING/ADJUSTMENT January 10 11:51am DRY NEEDLING/ADJUSTMENT February 11, 2025 1:38pm DRY NEEDLING/ADJUSTMENT March 11, 2025 1:05pm Reason for Visit Admit Date Cervical pain January 10, 2025 11:51am Segmental and somatic dysfunction of cer vical region January 10, 2025 11:51am Segmental and somatic dysfunction of lum bar region January 10, 2025 11:51am Segmental and somatic dysfunction of pel jm region January 10, 2025 11:51am Segmental and somatic dysfunction of tho racic region January 10, 2025 11:51am Disorder of intervertebral d isc at C5-C6 level with radiculopathy January 10, 2025 11:51am Cervical pain February 11, 2025 1:3 8pm Segmental and somatic dysfunction of cer vical region February 11, 2025 1:38pm Segmental and somatic dysfunction of lum bar region February 11, 2025 1:38pm Segmental and somatic dysfunction of pel jm region February 11, 2025 1:38pm Segmental and somatic dysfunction of tho racic region February 11, 2025 1:38pm Degenerative disc disease, cervical Artem h 2024 1:38pm Disorder of intervertebral d isc at C5-C6 level with radiculopathy February 11, 2025 1:38pm Segmental and somatic dysfunction of cer vical region March 11, 2025 1:05pm Segmental and somatic dysfunction of lum bar region March 11, 2025 1:05pm Segmental and somatic dysfunction of pel jm region March 11, 2025 1:05pm Segmental and somatic dysfunction of tho racic region March 11, 2025 1:05pm Degenerative disc disease, cervical Apri l 2024 1:05pm Disorder of intervertebral d isc at C5-C6 level with radiculopathy March 11, 2025 1:05pm Chief Complaint Admit Date DRY NEEDLING/ADJUSTMENT January 10 11:51am DRY NEEDLING/ADJUSTMENT February 11, 2025 1:38pm DRY NEEDLING/ADJUSTMENT March 11, 2025 1:05pm BACK PAIN April 09, 2025 1:42p m Reason for Visit Admit Date Cervical pain January 10, 2025 11:51am Segmental and somatic dysfunction of cer vical region January 10, 2025 11:51am Segmental and somatic dysfunction of lum bar region January 10, 2025 11:51am Segmental and somatic dysfunction of pel jm region January 10, 2025 11:51am Segmental and somatic dysfunction of tho racic region January 10, 2025 11:51am Disorder of intervertebral d isc at C5-C6 level with radiculopathy January 10, 2025 11:51am Cervical pain February 11, 2025 1:3 8pm Segmental and somatic dysfunction of cer vical region February 11, 2025 1:38pm Segmental and somatic dysfunction of lum bar region February 11, 2025 1:38pm Segmental and somatic dysfunction of pel jm region February 11, 2025 1:38pm Segmental and somatic dysfunction of tho racic region February 11, 2025 1:38pm Degenerative disc disease, cervical Artem h 2024 1:38pm Disorder of intervertebral d isc at C5-C6 level with radiculopathy February 11, 2025 1:38pm Segmental and somatic dysfunction of cer vical region March 11, 2025 1:05pm Segmental and somatic dysfunction of lum bar region March 11, 2025 1:05pm Segmental and somatic dysfunction of pel jm region March 11, 2025 1:05pm Segmental and somatic dysfunction of tho racic region March 11, 2025 1:05pm Degenerative disc disease, cervical Apri l 2024 1:05pm Disorder of intervertebral d isc at C5-C6 level with radiculopathy March 11, 2025 1:05pm Segmental and somatic dysfunction of cer vical region April 09, 2025 1:42pm Segmental and somatic dysfunction of lum bar region April 09, 2025 1:42pm Segmental and somatic dysfunction of pel jm region April 09, 2025 1:42pm Segmental and somatic dysfunction of tho racic region April 09, 2025 1:42pm Degenerative disc disease, cervical April 09, 2025 1:42pm Disorder of intervertebral d isc at C5-C6 level with radiculopathy April 09, 2025 1:42pm Chief Complaint Admit Date DRY NEEDLING/ADJUSTMENT January 10 11:51am DRY NEEDLING/ADJUSTMENT February 11, 2025 1:38pm DRY NEEDLING/ADJUSTMENT March 11, 2025 1:05pm BACK PAIN April 09, 2025 1:42p m DRY NEEDLING/ADJUSTMENT May 06, 2025 12:54pm Reason for Visit Admit Date Segmental and somatic dysfunction of cer vical region January 10, 2025 11:51am Segmental and somatic dysfunction of lum bar region January 10, 2025 11:51am Segmental and somatic dysfunction of pel jm region January 10, 2025 11:51am Segmental and somatic dysfunction of tho racic region January 10, 2025 11:51am Cervical pain January 10, 2025 11:51am Disorder of intervertebral d isc at C5-C6 level with radiculopathy January 10, 2025 11:51am Segmental and somatic dysfunction of cer vical region February 11, 2025 1:38pm Segmental and somatic dysfunction of lum bar region February 11, 2025 1:38pm Segmental and somatic dysfunction of pel jm region February 11, 2025 1:38pm Segmental and somatic dysfunction of tho racic region February 11, 2025 1:38pm Cervical pain February 11, 2025 1:3 8pm Degenerative disc disease, cervical Artem h 2024 1:38pm Disorder of intervertebral d isc at C5-C6 level with radiculopathy February 11, 2025 1:38pm Segmental and somatic dysfunction of cer vical region March 11, 2025 1:05pm Segmental and somatic dysfunction of lum bar region March 11, 2025 1:05pm Segmental and somatic dysfunction of pel jm region March 11, 2025 1:05pm Segmental and somatic dysfunction of tho racic region March 11, 2025 1:05pm Degenerative disc disease, cervical Apri l 2024 1:05pm Disorder of intervertebral d isc at C5-C6 level with radiculopathy March 11, 2025 1:05pm Segmental and somatic dysfunction of cer vical region April 09, 2025 1:42pm Segmental and somatic dysfunction of lum bar region April 09, 2025 1:42pm Segmental and somatic dysfunction of pel jm region April 09, 2025 1:42pm Segmental and somatic dysfunction of tho racic region April 09, 2025 1:42pm Cervical pain April 09, 2025 1:42p m Degenerative disc disease, cervical April 09, 2025 1:42pm Segmental and somatic dysfunction of cer vical region May 06, 2025 12:54pm Segmental and somatic dysfunction of lum bar region May 06, 2025 12:54pm Segmental and somatic dysfunction of pel jm region May 06, 2025 12:54pm Segmental and somatic dysfunction of tho racic region May 06, 2025 12:54pm Degenerative disc disease, cervical May 06, 2025 12:54pm Chief Complaint Admit Date DRY NEEDLING/ADJUSTMENT February 11, 2025 1:38pm DRY NEEDLING/ADJUSTMENT March 11, 2025 1:05pm BACK PAIN April 09, 2025 1:42p m DRY NEEDLING/ADJUSTMENT May 06, 2025 12:54pm SCREENING May 24, 2025 2:25 pm Reason for Visit Admit Date Segmental and somatic dysfunction of cer vical region February 11, 2025 1:38pm Segmental and somatic dysfunction of lum bar region February 11, 2025 1:38pm Segmental and somatic dysfunction of pel jm region February 11, 2025 1:38pm Segmental and somatic dysfunction of tho racic region February 11, 2025 1:38pm Cervical pain February 11, 2025 1:3 8pm Degenerative disc disease, cervical Artem h 2024 1:38pm Disorder of intervertebral d isc at C5-C6 level with radiculopathy February 11, 2025 1:38pm Segmental and somatic dysfunction of cer vical region March 11, 2025 1:05pm Segmental and somatic dysfunction of lum bar region March 11, 2025 1:05pm Segmental and somatic dysfunction of pel jm region March 11, 2025 1:05pm Segmental and somatic dysfunction of tho racic region March 11, 2025 1:05pm Degenerative disc disease, cervical Apri l 2024 1:05pm Disorder of intervertebral d isc at C5-C6 level with radiculopathy March 11, 2025 1:05pm Segmental and somatic dysfunction of cer vical region April 09, 2025 1:42pm Segmental and somatic dysfunction of lum bar region April 09, 2025 1:42pm Segmental and somatic dysfunction of pel jm region April 09, 2025 1:42pm Segmental and somatic dysfunction of tho racic region April 09, 2025 1:42pm Cervical pain April 09, 2025 1:42p m Degenerative disc disease, cervical April 09, 2025 1:42pm Neck pain May 06, 2025 12:5 4pm Segmental and somatic dysfunction of cer vical region May 06, 2025 12:54pm Segmental and somatic dysfunction of lum bar region May 06, 2025 12:54pm Segmental and somatic dysfunction of pel jm region May 06, 2025 12:54pm Segmental and somatic dysfunction of tho racic region May 06, 2025 12:54pm Degenerative disc disease, cervical May 06, 2025 12:54pm Reason for Referral Specialty Diagnoses / Procedures Referred By Contsarina t Referred To Contact Podiatry Diagnoses Acute right ankle pain Procedures CONSULT TO PODIATRY OFFICE/OUTPATIENT [facility] 60-74 MINUTES Asher Garcia PA-C [address] [place] [address] Referral ID Status Reason Start Date Expiration Date Visits Requested Visits Authorized [id number] Authorized PCP Requested Referral 05/18/2023 05/17/2024 1 1 Summary Purpose Family History Relationship Condition Age at Onset Recorded Date/T alexandro grandfather Arthritis Unknown grandmother Arthritis Unknown aunt Malignant neoplasm of breast Unknown Diabetes mellitus Unknown father Malignant neoplasm Unknown mother Malignant neoplasm Unknown uncle Diabetes mellitus Unknown brother Cardiac disease Unknown Additional Source Comments Source Comments (unrecognize d section and content) In the event this informatio n is protected by the Federal Confidentiality of Alcohol and Drug Abuse Patient Records regulations: The Federal rules restrict any use of the information to criminally investigate or prosecute any alcohol or drug abuse patient[facility] the event this information is protected by the Federal Confidentiality of Alcohol and Drug Abuse Patient Records regulations: The Federal rules restrict any use of the information to criminally investigate or prosecute any alcohol or drug abuse patient.[facility] the event this information is protected by the Federal Confidentiality of Alcohol and Drug Abuse Patient Records regulations: The Federal rules restrict any use of the information to criminally investigate or prosecute any alcohol or drug abuse patient.[facility] the event this information is protected by the Federal Confidentiality of Alcohol and Drug Abuse Patient Records regulations: The Federal rules restrict any use of the information to criminally investigate or prosecute any alcohol or drug abuse patient.[facility] the event this information is protected by the Federal Confidentiality of Alcohol and Drug Abuse Patient Records regulations: The Federal rules restrict any use of the information to criminally investigate or prosecute any alcohol or drug abuse patient.[facility] Reason for Visit (unrecogniz ed section and content) Reason Comments Cystoid Macular Edema Follow Up Specialty Diagnoses / Procedures Referred By Lukasz t Referred To Contact OPHTHALMOLOGY Diagnoses Return in 2-3 months Procedures Est adult Marium Elam V, MD [address] [place] [address] Opht [facility] [address] [place] [address] Referral ID Status Reason Start Date Expiration Date Visits Requested Visits Authorized [id number] Authorized Financial Clearance Required - OON Payor Patient Cleared INN/SMCP Payor Auth Obtained 1 09/23/2022 4 4 Reason Comments right foot pain Right foot pain x 1 week-cannot recall an injury Reason Comments Results Care Teams (unrecognized sec tion and content) Leveler Helper Relationship Specialty Start Date End Date Yonatan Thompson MD [address] [facility] [address] [place] [address] PCP - General Family Practice 04/15/21 Scooby Quiñonez [address] [place], [place] [id number] Physician Ophthalmology 02/24/21 Team Status: Active Member Role Status Dates Dr. Paolo Lantigua MD Family Provider Active Dr. Yonatan Thompson MD Primary Care Provider Active Team Status: Inactive Member Role Status Dates Dr. Yonatna Thompson MD Primary Care Provider, Referring Provider Active Dr. Valentina Flores DC Attending Provider Active Team Status: Active Member Role Status Dates Dr. Yonatan Thompson MD Primary Care Provider Active Dr. Rajendra Lindsey MD Attending Provider, Referring Provider Active Team Status: Active Member Role Status Dates Dr. Yonatan Thompson MD Primary Care Provider Active GERALD IGLESIAS Attending Provider, Referring Provider Ac tive Team Status: Inactive Member Role Status Dates Dr. Yonatan Thompson MD Primary Care Provi brissa, Attending Provider, Referring Provider Active Team Status: Inactive Member Role Status Dates Dr. Yonatan Thompson MD Primary Care Provider Active GERALD IGLESIAS Attending Provider, Referring Provider Ac tive Team Status: Inactive Member Role Status Dates Dr. Yonatan Thompson MD Primary Care Provider Active Dr. Deshaun Knowles MD Attending Provider, Referring Provider Active Leveler Helper Relationship Specialty Start Date End Date Yonatan Thompson MD [address] [place] [address] [address] [place] [address] PCP - General Family Medicine 04/15/21 Scooby Quiñonez [address] [place] [address] Physician Ophthalmology 02/24/21 Leveler Helper Relationship Specialty Start Date End Date Yonatan Thompson MD [address] [place] [address] [address] [place] [address] PCP - General Family Medicine 04/15/21 Scooby Quiñonez [address] [place] [address] Physician Ophthalmology 02/24/21 Leveler Helper Relationship Specialty Start Date End Date Yonatan Thompson MD [address] [place] [address] [address] [place] [address] PCP - General Family Medicine 04/15/21 Scooby Quiñonez [address] [place] [address] Physician Ophthalmology 02/24/21 Team Status: Inactive Member Role Status Dates Dr. Yonatan Thompson MD Primary Care Provider Active Dr. Valentina Flores DC Attending Provider, Referring Pro vider Active Team Status: Inactive Member Role Status Dates Dr. Yonatan Thompson MD Primary Care Provider Active Dr. Montana Carlisle MD Attending Provider Active Team Status: Inactive Member Role Status Dates Dr. Yonatan Thompson MD Primary Care Provider, Referring Provider Active Dr. Melissa Solo MD Attending Provider Active Team Status: Inactive Member Role Status Dates Dr. Yonatan Thompson MD Primary Care Provider, Attending Provider Active Leveler Helper Relationship Specialty Start Date End Date Yonatan Thompson MD [address] [facility] [address] [place], [place] [id number] PCP - General Family Medicine 04/15/21 Scooby Quiñonez MD [address] [place], [place] [id number] Physician Ophthalmology 02/24/21 Team Status: Active Member Role Status Dates Dr. Yonatan Thompson MD Primary Care Provider Active Team Status: Inactive Member Role Status Dates Dr. Yonatan Thompson MD Primary Care Provider Active Start: December 17, 2024 End: December 17, 2024 Dr. Yonatan Thompson MD Attending Provider Active Start: December 17, 2024 End: December 17, 2024 Dr. Yonatan Thompson MD Referring Provider Active Start: December 17, 2024 End: December 17, 2024 Team Status: Inactive Member Role Status Dates Dr. Yonatan Thompson MD Primary Care Provider Active Start: January 10, 2025 End: January 10, 2025 Dr. Valentina Flores DC Attending Provider Active S tart: January 10, 2025 End: January 10, 2025 Dr. Valentina Flores DC Referring Provider Active S tart: January 10, 2025 End: January 10, 2025 Team Status: Inactive Member Role Status Dates Dr. Yonatan Thompson MD Primary Care Provider Active Start: February 11, 2025 End: February 11, 2025 Dr. Valentina Flores DC Attending Provider Active S tart: February 11, 2025 End: February 11, 2025 Dr. Valentina Flores DC Referring Provider Active S tart: February 11, 2025 End: February 11, 2025 Team Status: Inactive Member Role Status Dates Dr. Yonatan Thompson MD Primary Care Provider Active Start: March 11, 2025 End: March 11, 2025 Dr. Yonatan Thompson MD Referring Provider Active Start: March 11, 2025 End: March 11, 2025 Dr. Valentina Flores DC Attending Provider Active S tart: March 11, 2025 End: March 11, 2025 Team Status: Inactive Member Role Status Dates Dr. Yonatan Thompson MD Primary Care Provider Active Start: March 22, 2025 End: March 22, 2025 Dr. Yonatan Thompson MD Attending Provider Active Start: March 22, 2025 End: March 22, 2025 Dr. Yonatan Thompson MD Referring Provider Active Start: March 22, 2025 End: March 22, 2025 Team Status: Inactive Member Role Status Dates Dr. Yonatan Thompson MD Primary Care Provider Active Start: March 29, 2025 End: March 29, 2025 Dr. Yonatan Thompson MD Attending Provider Active Start: March 29, 2025 End: March 29, 2025 Dr. Yonatan Thompson MD Referring Provider Active Start: March 29, 2025 End: March 29, 2025 Team Status: Inactive Member Role Status Dates Dr. Yonatan Thompson MD Primary Care Provider Active Start: April 09, 2025 End: April 09, 2025 Dr. Yonatan Thompson MD Referring Provider Active Start: April 09, 2025 End: April 09, 2025 Dr. Valentina Flores DC Attending Provider Active S tart: April 09, 2025 End: April 09, 2025 Team Status: Inactive Member Role Status Dates Dr. Yonatan Thompson MD Primary Care Provider Active Start: May 06, 2025 End: May 06, 2025 Dr. Yonatan Thompson MD Referring Provider Active Start: May 06, 2025 End: May 06, 2025 Dr. Valentina Flores DC Attending Provider Active S tart: May 06, 2025 End: May 06, 2025 Team Status: Active Member Role/Relationship Status Dates Dr. Yonatan Thompson MD Primary Care Provider Active Team Status: Inactive Member Role/Relationship Status Dates Dr. Yonatan Thompson MD Primary Care Provider Active Start: February 11, 2025 End: February 11, 2025 Dr. Valentina Flores DC Attending Provider Active S tart: February 11, 2025 End: February 11, 2025 Dr. Valentina Flores DC Referring Provider Active S tart: February 11, 2025 End: February 11, 2025 Team Status: Inactive Member Role/Relationship Status Dates Dr. Yonatan Thompson MD Primary Care Provider Active Start: March 11, 2025 End: March 11, 2025 Dr. Yonatan Thompson MD Referring Provider Active Start: March 11, 2025 End: March 11, 2025 Dr. Valentina Flores DC Attending Provider Active S tart: March 11, 2025 End: March 11, 2025 Team Status: Inactive Member Role/Relationship Status Dates Dr. Yonatan Thompson MD Primary Care Provider Active Start: March 22, 2025 End: March 22, 2025 Dr. Yonatan Thompson MD Attending Provider Active Start: March 22, 2025 End: March 22, 2025 Dr. Yonatan Thompson MD Referring Provider Active Start: March 22, 2025 End: March 22, 2025 Team Status: Inactive Member Role/Relationship Status Dates Dr. Yonatan Thompson MD Primary Care Provider Active Start: March 29, 2025 End: March 29, 2025 Dr. Yonatan Thompson MD Attending Provider Active Start: March 29, 2025 End: March 29, 2025 Dr. Yonatan Thompson MD Referring Provider Active Start: March 29, 2025 End: March 29, 2025 Team Status: Inactive Member Role/Relationship Status Dates Dr. Yonatan Thompson MD Primary Care Provider Active Start: April 09, 2025 End: April 09, 2025 Dr. Yonatan Thompson MD Referring Provider Active Start: April 09, 2025 End: April 09, 2025 Dr. Valentina Flores DC Attending Provider Active S tart: April 09, 2025 End: April 09, 2025 Team Status: Inactive Member Role/Relationship Status Dates Dr. Yonatan Thompson MD Primary Care Provider Active Start: May 06, 2025 End: May 06, 2025 Dr. Yonatan Thompson MD Referring Provider Active Start: May 06, 2025 End: May 06, 2025 Dr. Valentina Flores DC Attending Provider Active S tart: May 06, 2025 End: May 06, 2025 Team Status: Inactive Member Role/Relationship Status Dates Dr. Yonatan Thompson MD Primary Care Provider Active Start: May 20, 2025 End: May 20, 2025 Dr. Jaciel Gavin DO Attending Provider Active Start: May 20, 2025 End: May 20, 2025 Dr. Jaciel Gavin DO Referring Provider Active Start: May 20, 2025 End: May 20, 2025 Team Status: Active Member Role/Relationship Status Dates Dr. Yonatan Thompson MD Primary Care Provider Active Start: May 22, 2025 Dr. Jaciel Gavin DO Attending Provider Active Start: May 22, 2025 Dr. Jaciel Gavin DO Referring Provider Active Start: May 22, 2025 Team Status: Active Member Role/Relationship Status Dates Dr. Yonatan Thompson MD Primary Care Provider Active Start: May 24, 2025 Dr. Yonatan Thompson MD Attending Provider Active Start: May 24, 2025 Dr. Yonatan Thompson MD Referring Provider Active Start: May 24, 2025 Team Status: Inactive Member Role/Relationship Status Dates Dr. Yonatan Thompson MD Primary Care Provider Active Start: May 22, 2025 End: May 22, 2025 Dr. Jaciel Gavin DO Attending Provider Active Start: May 22, 2025 End: May 22, 2025 Dr. Jaciel Gavin DO Referring Provider Active Start: May 22, 2025 End: May 22, 2025 INFORMATION SOURCE (unrecogn ized section and content) DATE CREATED AUTHOR 05/20/2023 [facility] DATE CREATED AUTHOR AUTHOR'S ORGANIZ ATION 05/11/2025 [facility] DATE CREATED AUTHOR AUTHOR'S ORGANIZ ATION 05/24/2025 [facility] FOR RECORDS PERTAINING TO PATIENTS WHO ARE [...] BE BASED ON THE PRIMARY CLINICAL RECORDS. [facility] [employer] [facility]. provides no warranty or guarantee of the accuracy or completeness of information in this document.
--- OUTSIDE RECORDS SUMMARY | 2025-05-29 06:42 | XMS RPT_ITS | CCD ---
Author Organization [facility] Care Team Providers Care Parking Lot Supervisor Name Role Phone Dossi Valentina ZELAYA Unavailable Scooby Quiñonez Unavailable Yonatan Thompson MD Primary Care Provider Dr. Yonatan Thompson Primary Care Provider Dr. Yonatan Thompson Referring Provider 1([facility])[phone] Valentina Flores Attending Provider 1([facility]) 25 Dr. Yonatan Thompson Primary Care Provider 1([facility])[phone] Dr. Yonatan Thompson Referring Provider 1([facility])[phone] [address]os[address] Valentina kennedy Attending Provider 1([facility]) 25 Dr. Abisai Hawk Attending Provider 1([facility])[phone] Dr. [place] Carlisle Attending Provider 1([facility])[phone] Yonatan Thompson Primary Care Provider 1([facility])[phone] Dr. Yonatan Thompson Referring Provider 1([facility])[phone] DosDr[address] Valentina kennedy Attending Provider 1([facility]) 25 Dr. Rajendra Lindsey Attending Provider [phone] Yonatan Thompson Primary Care Provider Dr. Yonatan Thompson Referring Provider 1([facility])[phone] Valentina Flores Attending Provider 1([facility]) 25 Dr. Rajendra Lindsey Referring Provider [phone] Yonatan Thompson Primary Care Provider Dr. Yonatan Thompson Referring Provider 1([facility])[phone] Valentina kennedy Attending Provider [phone] Scooby Quiñonez Unavailable Sherwin GARCIA, Yonatan Sainz Primary Care Provider SHERWIN, YONATAN Sainz Primary Care Unavailable SCOOBY HENSON Referring Unavailable YONATAN THOMPSON Primary Care Unavailable Sherwin, Dr. Tam Primary Care Provider Dosmarcia, Dr. Montgomery Attending Provider [phone] Dossi, Dr. Montgomery Referring Provider [phone] Orestes, Dr. Boyle Attending Provider Thompson, Dr. Tam Referring Provider [facility], Dr. Torres Attending Provider Thompson, Dr. Tam Primary Care Provider Dossi, Dr. Montgomery Attending Provider 1([facility]) 25 Dossi, Dr. Montgomery Referring Provider 1([facility]) 25 Thompson, Dr. Tam Primary Care Provider Dossi, Dr. Montgomery Attending Provider [phone] Dossi, Dr. Montgomery Referring Provider [phone] Sherwin, Dr. Tam Referring Provider Olamide GARCIA, Scooby Her Unavailable [...] Provider Dossi DC, Dr. Montgomery Attending Provider [phone] Dossi DC, Dr. Montgomery Referring [facility], Dr. Grissom Attending Provider [facility], Dr. Grissom Referring Provider Thompson, Yonatan [...] Thompson, Yonatan Primary Care Unavailable Thompson, Yonatan Primary Care [...] sources) penicillin v drug allergy [address] [facility] Chiropractic Work Phone: (6 sources) Adhesive agent; Translations: [ADHESIVE] Propensity to adverse reactions 9 [facility] (3 sources) Penicillins; Translations: [PENICILLINS] Propensity to adverse reactions 9 itching [facility] (6 sources) rivaroxaban; Translations: [RIVAROXABAN] Drug Allergy 1 Unknown [facility] (6 sources) Seasonal allergy; Translations: [SEASONAL ALLERGIES] Allergy to substance 2 Other: See Comments [facility] (13 sources) Penicillins Allergy to substance 2 itching [facility] Comment on above: Itching (4 sources) Penicillins Propensity to adverse reactions 9 [facility] (8 sources) Seasonal Allergies: Uncoded; Translations: [Seasonal Allergies: Uncoded] Allergy to substance 4 Other [facility] Comment on above: Sneezing (1 source) Penicillins Drug allergy (disorder) 5 [facility] Repository Medications Current Medications Medication Drug [...] in the ri ght eye twice daily. [place] 3-Boc-Gic-Fish Oil (13 sources) Start: 06-17-2022 [place] 8-Wbr-Hwl-Fish Oil (Fish Oil) 300-1,000 mg capsule Active 1 NMA PO DAILY June 17, 2022 12:00am Start: 06-17-2022 take 300-1000 mg by mouth once daily [place] 2-Irm-Qek-Fish Oil (Fish Oil) 300-1,000 mg capsule Active 1 CAP PO DAILY June 17, 2022 12:00am Start: 06-17-2022 take 300-1000 mg by mouth once daily [place] 7-Fbn-Mcd-Fish Oil (Fish Oil) 300-1,000 mg capsule Active [...] mouth daily in the p.m. ESCITALOPRAM OXALATE [phone] Valentina Flores DC Comment on above: Escitalopram Oxalate Active 10 MG daily December 12, 2017 8:45am Flaxseed Oil (7 sources) Start: 06-17-2022 Flaxseed Oil Active 5 ML MC TWICE A DAY June 17, 2022 12:00am Start: 06-17-2022 Flaxseed Oil A ctive 5 ML MC TWICE A DAY June 16, 2022 11:00pm glucosamine/msm/csa/amelia/hrb1 15 (KSRSFRRBBO-DFEJG-PVZ-AMELIA-115HC ORAL) (5 sources) glucosamine/msm/ csa/amelia/ivk222 (IXALDEAURM-PRCFS-OMB-AMELIA-115HC ORAL) Take by mouth once daily. Active glucosamine/msm/ csa/amelia/ngb509 (XCFHQWSDHD-TWRVO-XVA-AMELIA-115HC ORAL) Take by mouth once daily. 0 [...] mouth daily in the a.m. LEVOTHYROXINE SODIUM [id number] Valentina Flores DC Comment on above: Take [...] Active Comment on above: Take by mouth. Iajqz-1-PMA-EPA-Fish Oil 300-1,000 mg cap (4 sources) Fugyj-5-NMF-EPA- Fish Oil 300-1,000 mg cap Take by mouth once daily. Active Oajnd-2-ZHK-EPA- Fish Oil 300-1,000 mg cap Take by [...] 21, 2024 12:00am September 03, 2024 7:57pm Ostpl-5-FNA-EPA-Fish Oil (FISH OIL) 300-1,000 mg cap (1 source) Mcwev-8-RQP-EPA- Fis h Oil (FISH OIL) 300-1,000 mg [...] of device; implant or graft (1 source) Ljsalem-psfvdcn-pspl coma syndrome of right eye; Translations: [Other [...] BILATo n 05-24-2025 SCRN MAMM (CAD)W/REJI BILAT [facility] Imaging Services [address] [place], [place] [id number] SCRN MAMM (CAD)W/REJI BILAT MR#: [id number] Acct: [id number] Name: RACHELLE CHAMPION (LYNN) Rep #: [id number] : 1955 F 69 From: Jeaneth Thakkar MD PCP: Dr. Yonatan Thompson MD Status: REG CLI Study: SCRN MAMM (CAD)W/REJI BILAT Date of Exam: 05/14 12/08 Exam# [id number] Ordering Dr: Yonatan Thompson MD EXAM: SCRN [...] be mailed to the patient. Reading Location: [facility] CC: Dr. Yonatan Thompson MD Sas Analyst: Signed Normal [facility] 24 HR Urine Creatinineon RANDOM UR TV 4000.0 ML Normal [facility] Comment on above: Performed By: #### L 502.000 #### [facility] [address] [place], [address] UR.CREAT/24hr 1524.0 mg/24 hr Normal 740.0-1540.0 [facility] Comment on above: Performed By: #### L 502.000 #### [facility] [address] [place], [address] URINE CREAT 38.10 mg/dL Normal 28.00-217.00 [facility] Comment on above: Performed By: #### L 502.000 #### [facility] [address] [place], [address] 24 hour urine free cortisol measurement (mass/time)Ordered By: Jaciel Gavin on 05-22-2025 Cortisol Free (24H U) [Mass/Time] 48 ug/24 hr High 6-42 [facility] Comment on above: Performed at: [address] [id number] Director: Bennie Gilmore MD, Phone: [phone] Quantitative urine free karin isol measurement (mass/volume)Ordered By: Jaciel Gavin on 05-22-2025 Cortisol Free (U) [Mass/Vol] 12 ug/L Undefined [facility] Total urine volume measureme ntOrdered By: Jaciel Gavin on 05-22-2025 Specimen volume (U) 4000.0 ML [facility] Urine creatinine measurement (mass/volume)Ordered By: Jaciel Gavin on 05-22-2025 Creatinine (U) [Mass/Vol] 38.10 mg/dL 28.00-217.00 [facility] Chiropractic Reporton 2024 Chiropractic Report [facility] [address] [place] [address] OFFICE VISIT Date of Service: 05/06/25 MR#: [id number] Acct: [id number] Name: RACHELLE CHAMPION (LYNN) Rep #: [id number] : 1955 Provider: GARCIA Roy Age/Sex: 69/F Location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 Normal [facility] .GFRon 04-29-2025 Estimated Glomerular Filtration Rate 95 ml/min/1.73sqm Normal [facility] Comment on above: Result Comment: Stages [...] FR, FT4, VIDH, THYAB, CMP, TSH #### [address] [address] CMPon 04-29-2025 Albumin Level 4.1 G/dL Normal 3.2-4.8 [facility] Comment on above: Performed By: #### G FR, FT4, VIDH, THYAB, CMP, TSH #### [address] [address] Albumin/Globulin [Mass ratio] 1.6 {ratio} Normal 0.9-1.6 [facility] Comment on above: Performed By: #### G FR, FT4, VIDH, THYAB, CMP, TSH #### [place] [address] [place] [address] ALP [Catalytic activity/Vol] 63 U/L Normal 38-126 [facility] Comment on above: Performed By: #### G FR, FT4, VIDH, THYAB, CMP, TSH #### [place] [address] [place] [address] ALT [Catalytic activity/Vol] 18 U/L Normal 10-49 [facility] Comment on above: Performed By: #### G FR, FT4, VIDH, THYAB, CMP, TSH #### [address] [address] AST [Catalytic activity/Vol] 20 U/L Normal 8-34 [facility] Comment on above: Performed By: #### G FR, FT4, VIDH, THYAB, CMP, TSH #### [address] [address] Bili Total 0.70 mg/dL Normal 0.20-1.20 [facility] Comment on above: Result Comment: Use of this assay is not recommended for patients undergoing treatment with eltrombopag due to the potential for falsely elevated results. Performed By: #### G FR, FT4, VIDH, THYAB, CMP, TSH #### [place] [id number] BUN/Creatinine Ratio 22.9 ratio High 10.0-22.0 [facility] Comment on above: Performed By: #### G FR, FT4, VIDH, THYAB, CMP, TSH #### [address] [address] Calcium [Mass/Vol] 8.8 mg/dL Normal 8.7-10.4 [facility] Comment on above: Performed By: #### G FR, FT4, VIDH, THYAB, CMP, TSH #### [address] [address] Chloride [Moles/Vol] 105 mmol/L Normal 98-110 [facility] Comment on above: Performed By: #### G FR, FT4, VIDH, THYAB, CMP, TSH #### [address] [address] CO2 [Moles/Vol] 26 mmol/L Normal 22-32 [facility] Comment on above: Performed By: #### G FR, FT4, VIDH, THYAB, CMP, TSH #### [address] [address] Creatinine [Mass/Vol] 0.70 mg/dL Normal 0.50-1.20 [facility] Comment on above: Result Comment: Test ing performed on HashTip analyzer using enzymatic creatinine methodology. Performed By: #### G FR, FT4, VIDH, THYAB, CMP, TSH #### [place] [address] Electrolyte Balance 8.0 mEq/L Normal 4.0-15.0 [facility] Comment on above: Performed By: #### G FR, FT4, VIDH, THYAB, CMP, TSH #### [place] [id number] Globulin 2.6 G/dL Normal 2.5-4.2 [facility] Comment on above: Performed By: #### G FR, FT4, VIDH, THYAB, CMP, TSH #### [place] [address] Glucose [Mass/Vol] 103 mg/dL Normal 82-115 [facility] Comment on above: Performed By: #### G FR, FT4, VIDH, THYAB, CMP, TSH #### [place] [id number] Potassium [Moles/Vol] 3.9 mmol/L Normal 3.5-5.0 [facility] Comment on above: Performed By: #### G FR, FT4, VIDH, THYAB, CMP, TSH #### [place] [id number] Sodium [Moles/Vol] 139 mmol/L Normal 136-145 [facility] Comment on above: Performed By: #### G FR, FT4, VIDH, THYAB, CMP, TSH #### [place] [id number] Total Protein 6.7 G/dL Normal 5.7-8.2 [facility] Comment on above: Performed By: #### G FR, FT4, VIDH, THYAB, CMP, TSH #### [place] [id number] Urea nitrogen [Mass/Vol] 16.0 mg/dL Normal 8.0-22.0 [facility] Comment on above: Performed By: #### G FR, FT4, VIDH, THYAB, CMP, TSH #### [place] [address] FT4on 04-29-2025 Free T4 [Mass/Vol] 1.55 ng/dL Normal 0.89-1.76 [facility] Comment on above: Result Comment: No te - New Reference Range in effect 20 Performed By: #### G FR, FT4, VIDH, THYAB, CMP, TSH #### [place] [address] THYABon 04-29-2025 anti-Thyroid Peroxidase 3584 units/ml High 0-60 [facility] Comment on above: Performed By: #### G FR, FT4, VIDH, THYAB, CMP, TSH #### [place] [address] Thyroglobulin Ab 305 units/ml High 15-60 [facility] Comment on above: Performed By: #### G FR, FT4, VIDH, THYAB, CMP, TSH #### [place] [address] TSHon 04-29-2025 TSH 1.297 mIU/mL Normal 0.550-4.780 [facility] Comment on above: Performed By: #### G FR, FT4, VIDH, THYAB, CMP, TSH #### [place] [address] VIDHon 04-29-2025 Vit. D 25-Hydroxy 40.1 ng/mL Normal [facility] Comment on above: Result Comment: Inte rpretive Values Based on Total 25(OH)D: Severe Deficiency <20 ng/mL Mild to Moderate Deficiency 20-30 ng/mL Optimum Levels 30-100 ng/mL Toxicity Possible >100 ng/mL Performed By: #### G FR, FT4, VIDH, THYAB, CMP, TSH #### [place] [address] Chiropractic Reporton 2024 Chiropractic Report [facility] [address] [place] [address] OFFICE VISIT Date of Service: 04/09/25 MR#: [id number] Acct: [id number] Name: RACHELLE CHAMPION (LYNN) Rep #: [id number] : 1955 Provider: GARCIA Roy Age/Sex: 69/F [place] [facility] Status: Signed Intake Vital Signs 02/11/25 [...] PO DAILY 06/17/22 04/09/25 H istory omega 7-gag-opy-fish oil 300 1 cap PO DAILY 06/17/22 [...] you fallen in the past year?: No [facility] Medical History Acute sinusitis, unspecified Hemorrhoids Degenerative [...] to ins (more content not included)... Normal [facility] Hemoglobin A1c percentageOrd ered By: Yonatan Thompson on 03-29-2025 HbA1c (Bld) [Mass fraction] 5.8 % High <5.7 [facility] Comment on above: Normal < 5.7 % Predi abetic 5.7 - 6.4 % Diabetic >or= 6.5 % Please note range changes. Result Comment: Norm al < 5.7 % Prediabetic 5.7 - 6.4 % Diabetic >or= 6.5 % Please note range changes. Performed By: #### L 501.9985 ####[facility] [address] [place], [address] Anion gap in Serum or Plasma Ordered By: Yonatan Thompson on 03-22-2025 Anion gap [Moles/Vol] 10 mmol/L 5- [facility] BUN/creatinine ratioOrdered By: Yonatan Thompson on 03-22-2025 Urea nitrogen/Creatinine [Mass ratio] 22.1 mg/mg High - [facility] Bilirubin, totalOrdered By: Yonatan Thompson on 03-22-2025 Bilirubin [Mass/Vol] 0.44 mg/dL 0.00-1.30 [facility] Calculated very low density lipoprotein (VLDL) cholesterol measurementOrdered By: Yonatan Thompson on 03-22-2025 Calculated very low density lipoprotein (VLDL) cholesterol measurement 20 mg/dL 5-40 [facility] Carbon dioxide, total [Moles /volume] in Central venous bloodOrdered By: Yonatan Thompson on 03-22-2025 CO2 [Moles/Vol] 25.8 mmol/L 21.0-32.0 [facility] Chloride assayOrdered By: Suresh Thompson on 03-22-2025 Chloride [Moles/Vol] 103 mmol/L 98-108 [facility] Comprehensive Metabolic Prof ilon 03-22-2025 Albumin [Mass/Vol] 4.4 g/dL Normal 3.4-4.8 [facility] Comment on above: Performed By: #### L 500.4100, L500.4050, L506.0400, L501.9520, L501.69507 #### [facility] [address] [place], [address] Albumin/Globulin [Mass ratio] 1.8 {ratio} Normal 0.9-2.4 [facility] Comment on above: Performed By: #### L 500.4100, L500.4050, L506.0400, L501.9520, L501.40907 #### [facility] [address] [place], [address] ALK PHOS 66 U/L Normal 35-104 [facility] Comment on above: Performed By: #### L 500.4100, L500.4050, L506.0400, L501.9520, L501.20879 #### [facility] [address] [place], [address] ALT [Catalytic activity/Vol] 19 U/L Normal <=34 [facility] Comment on above: Performed By: #### L 500.4100, L500.4050, L506.0400, L501.9520, L501.12875 #### [facility] [address] [place], [address] AST [Catalytic activity/Vol] 21 U/L Normal <=31 [facility] Comment on above: Performed By: #### L 500.4100, L500.4050, L506.0400, L501.9520, L501.75763 #### [facility] [address] [place], [address] Bilirubin [Mass/Vol] 0.44 mg/dL Normal 0.00-1.30 [facility] Comment on above: Performed By: #### L 500.4100, L500.4050, L506.0400, L501.9520, L501.05094 #### [facility] [address] [place], [address] BUN/CRE 22.1 RATIO High 10-20 [facility] Comment on above: Performed By: #### L 500.4100, L500.4050, L506.0400, L501.9520, L501.30165 #### [facility] [address] [place], [address] Calcium [Mass/Vol] 9.4 mg/dL Normal 7.6-11.0 [facility] Comment on above: Performed By: #### L 500.4100, L500.4050, L506.0400, L501.9520, L501.77945 #### [facility] [address] [place], [address] Chloride [Moles/Vol] 103 mmol/L Normal 98-108 [facility] Comment on above: Performed By: #### L 500.4100, L500.4050, L506.0400, L501.9520, L501.16705 #### [facility] [address] [place], [address] CO2 [Moles/Vol] 25.8 mmol/L Normal 21.0-32.0 [facility] Comment on above: Performed By: #### L 500.4100, L500.4050, L506.0400, L501.9520, L501.09516 #### [facility] [address] [place], [address] Creatinine [Mass/Vol] 0.86 mg/dL Normal 0.70-1.20 [facility] Comment on above: Performed By: #### L 500.4100, L500.4050, L506.0400, L501.9520, L501.87738 #### [facility] [address] [place], [address] GAP 10 Normal 5-15 [facility] Comment on above: Performed By: #### L 500.4100, L500.4050, L506.0400, L501.9520, L501.81871 #### [facility] [address] [place], [address] GFR/1.73 sq M.predicted among non-blacks MDRD (S/P/Bld) [Vol rate/Area] 74 mL/min/{1.73_m2} Normal >60 [facility] Comment on above: Result Comment: mL/m in/1.73m2 CKD-EPI Creatinine Equation (2020) Performed By: #### L 500.4100, L500.4050, L506.0400, L501.9520, L501.36185 #### [facility] [address] [place], [address] Globulin (S) [Mass/Vol] 2.4 g/dL Normal 2.2-4.2 [facility] Comment on above: Performed By: #### L 500.4100, L500.4050, L506.0400, L501.9520, L501.85041 #### [facility] [address] [place], [address] Glucose [Mass/Vol] 120 mg/dL High 70-99 [facility] Comment on above: Performed By: #### L 500.4100, L500.4050, L506.0400, L501.9520, L501.29477 #### [facility] [address] [place], [address] Potassium [Moles/Vol] 4.2 mmol/L Normal 3.3-5.1 [facility] Comment on above: Performed By: #### L 500.4100, L500.4050, L506.0400, L501.9520, L501.62897 #### [facility] [address] [place], [address] Sodium [Moles/Vol] 138 mmol/L Normal 133-145 [facility] Comment on above: Performed By: #### L 500.4100, L500.4050, L506.0400, L501.9520, L501.33619 #### [facility] [address] [place], [address] T PROT 6.9 g/dL Normal 5.9-8.4 [facility] Comment on above: Performed By: #### L 500.4100, L500.4050, L506.0400, L501.9520, L501.00078 #### [facility] [address] [place], [address] Urea nitrogen [Mass/Vol] 19 mg/dL Normal 4-19 [facility] Comment on above: Performed By: #### L 500.4100, L500.4050, L506.0400, L501.9520, L501.47746 #### [facility] [address] [place], [address] Free T3on 03-22-2025 Free T3 [Mass/Vol] 2.1 pg/mL Low 2.18-3.98 [facility] Comment on above: Performed By: #### L 500.4100, L500.4050, L506.0400, L501.9520, L501.18421 ####[facility] [address] [place], [place], [id number] Free K1Tovkaqs By: Yonatan marquez on 03-22-2025 Free T3 [Mass/Vol] 2.1 pg/mL Low 2.18-3.98 [facility] Glomerular filtration rate ( GFR) estimation/1.73 sq m using serum, plasma, or whole bOrdered By: Yonatan Thompson on 03-22-2025 GFR/1.73 sq M.predicted among non-blacks MDRD (S/P/Bld) [Vol rate/Area] 74 mL/min/{1.73_m2} >60 [facility] Comment on above: mL/min/1.73m2 CKD-EP I Creatinine Equation (2020) LDL calc ser/plasOrdered By: Yonatan Thompson on 03-22-2025 Cholesterol in LDL [Mass/Vol] 118 mg/dL [facility] Comment on above: Vnkuulsomh=481-453 m g/dL & Higher Dpzc=410 mg/dL or greater Laboratory - Chemistry and C hemistry - challengeOrdered By: Yonatan Thompson on 03-22-2025 AST [Catalytic activity/Vol] 21 U/L <32 [facility] Lipid Profileon 03-22-2025 CHOL:HDL 3.26 Normal [facility] Comment on above: Performed By: #### L 500.4100, L500.4050, L506.0400, L501.9520, L501.58927 #### [facility] [address] [place], [place], [address] Cholesterol [Mass/Vol] 199 mg/dL Normal <=200 [facility] Comment on above: Result Comment: Chol esterol level, Desirable <200 mg/dL Borderline high cholesterol 200-239 mg/dL High cholesterol >=240 mg/dL Recommendations of the NCEP Adult Treatment Panel for the following risk-cutoff thresholds for the [place] population. Performed By: #### L 500.4100, L500.4050, L506.0400, L501.9520, L501.17247 #### [facility] [address] [place], [place], [address] Cholesterol in HDL [Mass/Vol] 61 mg/dL Normal [facility] Comment on above: Result Comment: Rafia onal Cholesterol Education Program (NCEP) guidelines: <40 mg/dL: Low HDL-cholesterol (major risk factor for CHD) >= 60 mg/dL: High HDL-cholesterol (negative risk factor for CHD) HDL-cholesterol is affected by a number of factors, e.g. smoking, exercise, hormones, sex and age. Performed By: #### L 500.4100, L500.4050, L506.0400, L501.9520, L501.82193 #### [facility] [address] [place], [address] Cholesterol in LDL [Mass/Vol] 118 mg/dL Normal [facility] Comment on above: Result Comment: Bord fjrcbt=693-171 mg/dL Higher Tlld=120 mg/dL or greater Performed By: #### L 500.4100, L500.4050, L506.0400, L501.9520, L501.21148 #### [facility] [address] [place], [address] Cholesterol in VLDL [Mass/Vol] 20 mg/dL Normal 5-40 [facility] Comment on above: Performed By: #### L 500.4100, L500.4050, L506.0400, L501.9520, L501.99572 #### [facility] [address] [place], [address] Triglyceride [Mass/Vol] 98 mg/dL Normal [facility] Comment on above: Result Comment: The drugs N-Acetylcysteine and Metamizole may falsely depress this assay. Normal range: <150 mg/dL Borderline High: 150-199 mg/dL High: 200-499 mg/dL Very High: >500 mg/dL Performed By: #### L 500.4100, L500.4050, L506.0400, L501.9520, L501.28933 #### [facility] [address] [place], [address] Potassium measurement (mass/ volume)Ordered By: Yonatan Thompson on 03-22-2025 Potassium (Unsp spec) [Mass/Vol] 4.2 mmol/L 3.3-5.1 [facility] Screening total cholesterol/ high density lipoprotein (HDL) cholesterol ratioOrdered By: Yonatan Thompson on 03-22-2025 Cholesterol.total/Cho lesterol in HDL [Mass ratio] 3.26 {ratio} [facility] Serum creatinine measurement (mass/volume)Ordered By: Yonatan Thompson on 03-22-2025 Creatinine [Mass/Vol] 0.86 mg/dL 0.70-1.20 [facility] Serum globulin measurementOr dered By: Yonatan Thompson on 03-22-2025 Globulin (S) [Mass/Vol] 2.4 g/dL 2.2-4.2 [facility] Serum glucose measurement (m ass/volume)Ordered By: Yonatan Thompson on 03-22-2025 Glucose [Mass/Vol] 120 mg/dL High 70-99 [facility] Serum or plasma alanine samson otransferase (ALT) measurementOrdered By: Yonatan Thompson on 03-22-2025 ALT [Catalytic activity/Vol] 19 U/L <35 [facility] Serum or plasma albumin annabel urement (mass/volume)Ordered By: Yonatan Thompson on 03-22-2025 Albumin [Mass/Vol] 4.4 g/dL 3.4-4.8 [facility] Serum or plasma albumin/glob ulin mass ratioOrdered By: Yonatan Thompson on 03-22-2025 Albumin/Globulin [Mass ratio] 1.8 {ratio} 0.9-2.4 [facility] Serum or plasma alkaline katelynn sphatase measurementOrdered By: Yonatan Thompson on 03-22-2025 ALP [Catalytic activity/Vol] 66 U/L 35-104 [facility] Serum or plasma calcium annabel urement (mass/volume)Ordered By: Yonatan Thompson on 03-22-2025 Calcium [Mass/Vol] 9.4 mg/dL 7.6-11.0 [facility] Serum or plasma cholesterol in HDL measurement (mass/volume)Ordered By: Yonatan Thompson on 05-09-2025 Cholesterol in HDL [Mass/Vol] 61 mg/dL >40 [facility] Comment on above: National Cholesterol Education Program (NCEP) guidelines:<40 mg/dL: Low HDL-cholesterol (major risk factor for CHD)>= 60 mg/dL: High HDL-cholesterol (negative risk factor for CHD)HDL-cholesterol is affected by a number of factors, e.g. smoking, exercise, hormones, sex and age. Serum or plasma cholesterol measurement (mass/volume)Ordered By: Yonatan Thompson on 03-22-2025 Cholesterol [Mass/Vol] 199 mg/dL <201 [facility] Comment on above: Cholesterol level, D esirable <200 mg/dLBorderline high cholesterol 200-239 mg/dLHigh cholesterol >=240 mg/dLRecommendations of the NCEP Adult Treatment Panel for the following risk-cutoff thresholds for the [place] population. Serum or plasma urea nitroge n measurement (mass/volume)Ordered By: Yonatan Thompson on 03-22-2025 Urea nitrogen [Mass/Vol] 19 mg/dL 4-19 [facility] Sodium levelOrdered By: Yonatan Thompson on 03-22-2025 Sodium [Moles/Vol] 138 mmol/L 133-145 [facility] T4 Free Directon 03-22-2025 T4 FREE DIRECT 1.40 ng/dL Normal 0.76-1.46 [facility] Comment on above: Performed By: #### L 500.4100, L500.4050, L506.0400, L501.9520, L501.86285 ####[facility] [address] [place], [place], [id number] T4 freeOrdered By: Yonatan marquez on 03-22-2025 Free T4 [Mass/Vol] 1.40 ng/dL 0.76-1.46 [facility] TSH DL <= 0.005 mIU/L QnOrde red By: Yonatan Thompson on 03-22-2025 TSH Qn 3.870 uIU/mL 0.300-4.200 [facility] Thyroid Stim Hormone (TSH)on 03-22-2025 TSH 3.870 uIU/mL Normal 0.300-4.200 [facility] Comment on above: Performed By: #### L 500.4100, L500.4050, L506.0400, L501.9520, L501.04830 ####[facility] [address] [place], [address] Total proteinOrdered By: Zahra Thompson on 03-22-2025 Protein [Mass/Vol] 6.9 g/dL 5.9-8.4 [facility] Triglycerides measurementOrd ered By: Yonatan Thompson on 03-22-2025 Triglyceride [Mass/Vol] 98 mg/dL <199 [facility] Comment on above: The drugs N-Acetylcy steine and Metamizole may falsely depress this assay. Normal range: <150 mg/dLBorderline High: 150-199 mg/dLHigh: 200-499 mg/dLVery High: >500 mg/dL Chiropractic Reporton 2024 Chiropractic Report [facility] [address] [place] [address] OFFICE VISIT Date of Service: 03/11/25 MR#: [id number] Acct: [id number] Name: RACHELLE CHAMPION (LYNN) Rep #: [id number] : 1955 Provider: GARCIA Roy Age/Sex: 69/F [place] [facility] [place] Status: Signed Intake Vital Signs 09/03/24 [...] PO DAILY 06/17/22 03/11/25 H istory omega 2-aqt-myl-fish oil 300 1 cap PO DAILY 06/17/22 [...] diffuse trap (more content not included)... Normal [facility] Chiropractic Reporton 2024 Chiropractic Report [facility] [address] [place] [address] OFFICE VISIT Date of Service: 02/11/25 MR#: [id number] Acct: [id number] Name: RACHELLE CHAMPION (LYNN)BETH Rep #: [id number] : 1955 Provider: GARCIA Roy Age/Sex: 69/F [place] [facility] [place] Status: Signed Intake Vital Signs 09/03/24 18:51 [...] PO DAILY 06/17/22 02/11/25 H istory omega 4-wfb-sbv-fish oil 300 1 cap PO DAILY 06/17/22 [...] states she is in need of rn care transition. She complains of low back pain that [...] muscles, Ye (more content not included)... Normal [facility] Chiropractic Reporton 2024 Chiropractic Report [facility] [address] [place] [address] OFFICE VISIT Date of Service: 01/10/25 MR#: [id number] Acct: [id number] Name: RACHELLE CHAMPION Rep #: [id number] : 1955 Provider: GARCIA Roy Age/Sex: 69/F [place] [facility] [place] Status: Signed Intake Vital Signs 09/03/24 [...] PO DAILY 06/17/22 01/10/25 H istory omega 0-hph-aru-fish oil 300 1 cap PO DAILY 06/17/22 [...] than rig (more content not included)... Normal [facility] Albumin to globulin ratioOrd ered By: Yonatan Thompson on 12-17-2024 Albumin/Globulin [Mass ratio] 1.1 {ratio} 0.9-2.4 [facility] Bilirubin, totalOrdered By: Yonatan Thompson on 12-17-2024 Bilirubin [Mass/Vol] 0.50 mg/dL 0.20-1.00 [facility] Comment on above: For patients on eltr ombopag therapy, use of Dimension Karthaus TBIL is not recommended. Blood urea nitrogen (BUN)/cr eatinine ratioOrdered By: Yonatan Thompson on 12-17-2024 Urea nitrogen/Creatinine [Mass ratio] 25.5 mg/mg High 10-20 [facility] Carbon dioxide measurementOr dered By: Yonatan Thompson on 12-17-2024 CO2 [Moles/Vol] 26.0 mmol/L 21.0-32.0 [facility] Chloride measurementOrdered By: Yonatan Thompson on 02-03-2025 Chloride [Moles/Vol] 108 mmol/L High 98-107 [facility] Comprehensive Metabolic Prof ilon 12-17-2024 Albumin [Mass/Vol] 3.6 g/dL Normal 3.2-5.0 [facility] Comment on above: Performed By: #### L 501.56654, L500.4050, L506.0400, L501.9520 ####[facility] [address] [place], [address] Albumin/Globulin [Mass ratio] 1.1 {ratio} Normal 0.9-2.4 [facility] Comment on above: Performed By: #### L 501.41626, L500.4050, L506.0400, L501.9520 ####[facility] [address] [place], [address] ALK P 69 U/L Normal 45-117 [facility] Comment on above: Performed By: #### L 501.94222, L500.4050, L506.0400, L501.9520 ####[facility] [address] [place], [address] ALT [Catalytic activity/Vol] 25 U/L Normal 13-56 [facility] Comment on above: Performed By: #### L 501.74718, L500.4050, L506.0400, L501.9520 ####[facility] [address] [place], [address] AST [Catalytic activity/Vol] 13 U/L Low 15-37 [facility] Comment on above: Performed By: #### L 501.51185, L500.4050, L506.0400, L501.9520 ####[facility] [address] [place], [address] Bilirubin [Mass/Vol] 0.50 mg/dL Normal 0.20-1.00 [facility] Comment on above: Result Comment: For patients on eltrombopag therapy, use of Dimension Karthaus TBIL is not recommended. Performed By: #### L 501.14094, L500.4050, L506.0400, L501.9520 ####[facility] [address] [place], [address] BUN/CRE 25.5 RATIO High 10-20 [facility] Comment on above: Performed By: #### L 501.26282, L500.4050, L506.0400, L501.9520 ####[facility] [address] [place], [address] CA,Total 8.8 mg/dL Normal 8.5-10.1 [facility] Comment on above: Performed By: #### L 501.35576, L500.4050, L506.0400, L501.9520 ####[facility] [address] [place], [address] Chloride [Moles/Vol] 108 mmol/L High 98-107 [facility] Comment on above: Performed By: #### L 501.18392, L500.4050, L506.0400, L501.9520 ####[facility] [address] [place], [address] CO2 [Moles/Vol] 26.0 mmol/L Normal 21.0-32.0 [facility] Comment on above: Performed By: #### L 501.53808, L500.4050, L506.0400, L501.9520 ####[facility] [address] [place], [address] Creatinine [Mass/Vol] 0.74 mg/dL Normal 0.55-1.02 [facility] Comment on above: Result Comment: The validity of the calculated GFR GFRAA in patients over 70 years has not been determined. Clinical correlation is essential. Performed By: #### L 501.20421, L500.4050, L506.0400, L501.9520 ####[facility] [address] [place], [address] EST GFR - AA 100 mL/min Normal >60 [facility] Comment on above: Result Comment: Afri can Dutch GFR Calc Performed By: #### L 501.69216, L500.4050, L506.0400, L501.9520 ####[facility] [address] [place], [address] GAP 7 Normal 5-15 [facility] Comment on above: Performed By: #### L 501.02168, L500.4050, L506.0400, L501.9520 ####[facility] [address] [place], [address] GFR/1.73 sq M.predicted among non-blacks MDRD (S/P/Bld) [Vol rate/Area] 82 mL/min/{1.73_m2} Normal >60 [facility] Comment on above: Result Comment: Non- GFR Calc Performed By: #### L 501.45127, L500.4050, L506.0400, L501.9520 ####[facility] [address] [place], [address] Globulin (S) [Mass/Vol] 3.4 g/dL Normal 2.2-4.2 [facility] Comment on above: Performed By: #### L 501.92306, L500.4050, L506.0400, L501.9520 ####[facility] [address] [place], [address] Glucose [Mass/Vol] 118 mg/dL High 74-106 [facility] Comment on above: Result Comment: Fast ing Glucose result from 100 to 125 mg/dL suggests IMPAIRED HOMEOSTASIS per A.D.A. criteria. Performed By: #### L 501.37439, L500.4050, L506.0400, L501.9520 ####[facility] [address] [place], [address] Potassium [Moles/Vol] 4.0 mmol/L Normal 3.5-5.1 [facility] Comment on above: Performed By: #### L 501.75884, L500.4050, L506.0400, L501.9520 ####[facility] [address] [place], [address] Sodium [Moles/Vol] 141 mmol/L Normal 136-145 [facility] Comment on above: Performed By: #### L 501.81290, L500.4050, L506.0400, L501.9520 ####[facility] [address] [place], [address] T PROT 7.0 g/dL Normal 6.4-8.2 [facility] Comment on above: Performed By: #### L 501.31637, L500.4050, L506.0400, L501.9520 ####[facility] [address] [place], [address] Urea nitrogen [Mass/Vol] 19 mg/dL High 7-18 [facility] Comment on above: Performed By: #### L 501.89017, L500.4050, L506.0400, L501.9520 ####[facility] [address] [place], [address] Direct serum free thyroxine (FT4) measurementOrdered By: Yonatan Thompson on 12-17-2024 Free T4 [Mass/Vol] 1.13 ng/dL 0.76-1.46 [facility] Free T3on 12-17-2024 Free T3 [Mass/Vol] 2.5 pg/mL Normal 2.18-3.98 [facility] Comment on above: Performed By: #### L 501.03447, L500.4050, L506.0400, L501.9520 ####[facility] [address] [place], [address] Free J9Pjrtejs By: Yonatan marquez on 12-17-2024 Free T3 [Mass/Vol] 2.5 pg/mL 2.18-3.98 [facility] Glomerular filtration rate ( GFR) estimationOrdered By: Yonatan Thompson on 12-17-2024 GFR/1.73 sq M.predicted among non-blacks MDRD (S/P/Bld) [Vol rate/Area] 82 mL/min/{1.73_m2} >60 [facility] Comment on above: Non- GFR Calc Glucose measurementOrdered B y: Yonatan Thompson on 12-17-2024 Glucose [Mass/Vol] 118 mg/dL High 74-106 [facility] Comment on above: Fasting Glucose resu lt from 100 to 125 mg/dL suggests IMPAIRED HOMEOSTASIS per A.D.A. criteria. Laboratory - Chemistry and C hemistry - challengeOrdered By: Yonatan Thompson on 12-17-2024 AST [Catalytic activity/Vol] 13 U/L Low 15-37 [facility] Potassium measurementOrdered By: Yonatan Thompson on 12-17-2024 Potassium [Moles/Vol] 4.0 mmol/L 3.5-5.1 [facility] Serum anion gap measurementO rdered By: Yonatan Thompson on 12-17-2024 Anion gap [Moles/Vol] 7 mmol/L 5-15 [facility] Serum globulin measurementOr dered By: Yonatan Thompson on 12-17-2024 Globulin (S) [Mass/Vol] 3.4 g/dL 2.2-4.2 [facility] Serum or plasma alanine samson otransferase (ALT) measurementOrdered By: Yonatan Thompson on 12-17-2024 ALT [Catalytic activity/Vol] 25 U/L 13-56 [facility] Serum or plasma albumin annabel urement (mass/volume)Ordered By: Yonatan Thompson on 12-17-2024 Albumin [Mass/Vol] 3.6 g/dL 3.2-5.0 [facility] Serum or plasma alkaline katelynn sphatase measurementOrdered By: Yonatan Thompson on 12-17-2024 ALP [Catalytic activity/Vol] 69 U/L 45-117 [facility] Serum or plasma calcium annabel urement (mass/volume)Ordered By: Yonatan Thompson on 12-17-2024 Calcium [Mass/Vol] 8.8 mg/dL 8.5-10.1 [facility] Serum or plasma creatinine m easurement (mass/volume)Ordered By: Yonatan Thompson on 12-17-2024 Creatinine [Mass/Vol] 0.74 mg/dL 0.55-1.02 [facility] Comment on above: The validity of the calculated GFR & GFRAA in patients over 70 years has not been determined. Clinical correlation is essential. Serum or plasma thyroid stim ulating hormone (TSH) measurement (units/volume)Ordered By: Yonatan Thompson on 12-17-2024 TSH Qn 1.020 uIU/mL 0.358-3.740 [facility] Serum or plasma urea nitroge n measurement (mass/volume)Ordered By: Yonatan Thompson on 12-17-2024 Urea nitrogen [Mass/Vol] 19 mg/dL High 7-18 [facility] Sodium levelOrdered By: Yonatan Thompson on 12-17-2024 Sodium [Moles/Vol] 141 mmol/L 136-145 [facility] T4 Free Directon 12-17-2024 T4 FREE DIRECT 1.13 ng/dL Normal 0.76-1.46 [facility] Comment on above: Performed By: #### L 501.44230, L500.4050, L506.0400, L501.9520 ####[facility] [address] [place], [address] Thyroid Stim Hormone (TSH)on 12-17-2024 TSH 1.020 uIU/mL Normal 0.358-3.740 [facility] Comment on above: Performed By: #### L 501.38771, L500.4050, L506.0400, L501.9520 ####[facility] [address] [place], [address] Total proteinOrdered By: Zahra Thompson on 12-17-2024 Protein [Mass/Vol] 7.0 g/dL 6.4-8.2 [facility] Chiropractic Reporton 2024 Chiropractic Report [facility] [address] [place] [address] OFFICE VISIT Date of Service: 11/26/24 MR#: [id number] Acct: [id number] Name: RACHELLE CHAMPION Rep #: [id number] : 1955 Provider: GARCIA Roy Age/Sex: 69/F [place] [facility] [place]: Signed Intake Vital Signs 09/03/24 18:51 [...] tab PO DAILY 06/17/22 11/26/24 History omega 2-dnh-hrq-fish oil 300 1 cap PO DAILY 06/17/22 [...] paraspinal tenderne (more content not included)... Normal [facility] Chiropractic Reporton 2023 Chiropractic Report [facility] [address] [place] [address] OFFICE VISIT Date of Service: 10/29/24 MR#: [id number] Acct: [id number] Name: RACHELLE CHAMPION Rep #: [id number] : 1955 Provider: GARCIA Roy Age/Sex: 69/F [place] [facility] Status: Signed Intake Vital Signs 05/21/24 11:11 [...] tab PO DAILY 06/17/22 09/03/24 History omega 9-saz-hol-fish oil 300 1 cap PO DAILY 06/17/22 [...] lumbar spi (more content not included)... Normal [facility] Chiropractic Reporton 2023 Chiropractic Report [facility] [address] [place] [address] OFFICE VISIT Date of Service: 10/01/24 MR#: [id number] Acct: [id number] Name: RACHELLE CHAMPION Rep #: [id number] : 1955 Provider: GARCIA Roy Age/Sex: 69/F [place] [facility] [place] Status: Signed Intake Vital Signs 05/21/24 [...] applied to areas if needed. Needle Number: [id number] Minutes: 20 Therapy Performed by: Dr. Washington (more content not included)... Normal [facility] Basic Metabolic Profile (BMP )on 09-10-2024 BUN/CRE 18.0 RATIO Normal 09-02 [facility] Comment on above: Order Comment: N Performed By: #### L 501.35600, L506.0400, L501.9520, L500.2500 #### [facility] [address] [place], [address] CA,Total 8.7 mg/dL Normal 8.5-10.1 [facility] Comment on above: Order Comment: N Performed By: #### L 501.10785, L506.0400, L501.9520, L500.2500 #### [facility] [address] [place], [address] Chloride [Moles/Vol] 106 mmol/L Normal 98-107 [facility] Comment on above: Order Comment: N Performed By: #### L 501.47802, L506.0400, L501.9520, L500.2500 #### [facility] [address] [place], [address] CO2 [Moles/Vol] 28.0 mmol/L Normal 21.0-32.0 [facility] Comment on above: Order Comment: N Performed By: #### L 501.14527, L506.0400, L501.9520, L500.2500 #### [facility] [address] [place], [address] Creatinine [Mass/Vol] 0.78 mg/dL Normal 0.55-1.02 [facility] Comment on above: Order Comment: N Result Comment: The validity of the calculated GFR GFRAA in patients over 70 years has not been determined. Clinical correlation is essential. Performed By: #### L 501.92921, L506.0400, L501.9520, L500.2500 #### [facility] [address] [place], [address] EST GFR - AA 95 mL/min Normal >60 [facility] Comment on above: Order Comment: N Result Comment: Afri can Dutch GFR Calc Performed By: #### L 501.80643, L506.0400, L501.9520, L500.2500 #### [facility] [address] [place], [address] GAP 4 Low 5-15 [facility] Comment on above: Order Comment: N Performed By: #### L 501.06477, L506.0400, L501.9520, L500.2500 #### [facility] [address] [place], [address] GFR/1.73 sq M.predicted among non-blacks MDRD (S/P/Bld) [Vol rate/Area] 79 mL/min/{1.73_m2} Normal >60 [facility] Comment on above: Order Comment: N Result Comment: Non- GFR Calc Performed By: #### L 501.97298, L506.0400, L501.9520, L500.2500 #### [facility] [address] [place], [address] Glucose [Mass/Vol] 91 mg/dL Normal 74-106 [facility] Comment on above: Order Comment: N Performed By: #### L 501.79937, L506.0400, L501.9520, L500.2500 #### [facility] [address] [place], [address] Potassium [Moles/Vol] 3.8 mmol/L Normal 3.5-5.1 [facility] Comment on above: Order Comment: N Performed By: #### L 501.73443, L506.0400, L501.9520, L500.2500 #### [facility] [address] [place], [address] Sodium [Moles/Vol] 138 mmol/L Normal 136-145 [facility] Comment on above: Order Comment: N Performed By: #### L 501.66524, L506.0400, L501.9520, L500.2500 #### [facility] [address] [place], [address] Urea nitrogen [Mass/Vol] 14 mg/dL Normal 7-18 [facility] Comment on above: Order Comment: N Performed By: #### L 501.95290, L506.0400, L501.9520, L500.2500 #### [facility] [address] [place], [address] Free T3on 09-10-2024 Free T3 [Mass/Vol] 2.0 pg/mL Low 2.18-3.98 [facility] Comment on above: Order Comment: N Performed By: #### L 501.14788, L506.0400, L501.9520, L500.2500 #### [facility] [address] [place], [address] T4 Free Directon 09-10-2024 T4 FREE DIRECT 0.95 ng/dL Normal 0.76-1.46 [facility] Comment on above: Order Comment: N Performed By: #### L 501.30393, L506.0400, L501.9520, L500.2500 #### [facility] [address] [place], [address] Thyroid Stim Hormone (TSH)on 09-10-2024 TSH 3.920 uIU/mL High 0.358-3.740 [facility] Comment on above: Order Comment: N Performed By: #### L 501.13121, L506.0400, L501.9520, L500.2500 #### [facility] [address] [place], [address] 12 Lead EKGon 09-03-2024 12 Lead EKG [facility] [address] [place] [address] 12 Lead EKG 09/03/24 1854 MR#: [id number] Acct: [id number] Name: RACHELLE CHAMPION Rep #: [id number] : 1955 69 From: [place] Carlisle MD [...] Abnormal ECG Confirmed by MONTANA CARLISLE MD ([id number]), supervising editor news reel ROSALIA PHELPS ([id number]) on 09/05/2024 10:05:25 AM Referred By: Confirmed By:MONTANA CARLISLE MD 09/05/24 1005 Date [place] Carlisle MD CC: Dr. Yonatan Thompson MD; Dr. Gaston Sanchez DO Signed Normal [facility] BNP,B-Type NATRIURETIC PEPTI Geoff 09-03-2024 Natriuretic peptide B (Bld) [Mass/Vol] 16.7 pg/mL Normal 0-100 [facility] Comment on above: Performed By: #### L 503.6620, L300.8000 ####[facility] [address] [place], [address] Basic Metabolic Profile (BMP )on 09-03-2024 BUN/CRE 19.7 RATIO Normal - [facility] Comment on above: Order Comment: 1Y Performed By: #### L 100.0100, L500.2500, L501.5425 ####[facility] [address] [place], [address] CA,Total 9.0 mg/dL Normal 8.5-10.1 [facility] Comment on above: Order Comment: 1Y Performed By: #### L 100.0100, L500.2500, L501.5425 ####[facility] [address] [place], [address] Chloride [Moles/Vol] 103 mmol/L Normal 98-107 [facility] Comment on above: Order Comment: 1Y Performed By: #### L 100.0100, L500.2500, L501.5425 ####[facility] [address] [place], [address] CO2 [Moles/Vol] 29.0 mmol/L Normal 21.0-32.0 [facility] Comment on above: Order Comment: 1Y Performed By: #### L 100.0100, L500.2500, L501.5425 ####[facility] [address] [place], [address] Creatinine [Mass/Vol] 0.91 mg/dL Normal 0.55-1.02 [facility] Comment on above: Order Comment: 1Y Result Comment: The validity of the calculated GFR GFRAA in patients over 70 years has not been determined. Clinical correlation is essential. Performed By: #### L 100.0100, L500.2500, L501.5425 ####[facility] [address] [place], [address] ECRCL 71.24 ml/min Normal [facility] Comment on above: Order Comment: 1Y Performed By: #### L 100.0100, L500.2500, L501.5425 ####[facility] [address] [place], [address] EST GFR - AA 79 mL/min Normal >60 [facility] Comment on above: Order Comment: 1Y Result Comment: Afri can Dutch GFR Calc Performed By: #### L 100.0100, L500.2500, L501.5425 ####[facility] [address] [place], [place], [address] GAP 6 Normal 5-15 [facility] Comment on above: Order Comment: 1Y Performed By: #### L 100.0100, L500.2500, L501.5425 ####[facility] [address] [place], [address] GFR/1.73 sq M.predicted among non-blacks MDRD (S/P/Bld) [Vol rate/Area] 65 mL/min/{1.73_m2} Normal >60 [facility] Comment on above: Order Comment: 1Y Result Comment: Non- GFR Calc Performed By: #### L 100.0100, L500.2500, L501.5425 ####[facility] [address] [place], [address] Glucose [Mass/Vol] 150 mg/dL High 74-106 [facility] Comment on above: Order Comment: 1Y Result Comment: Fast ing Glucose result greater than or equal to 126 mg/dL suggests DIABETES MELLITUS per A.D.A. criteria. Performed By: #### L 100.0100, L500.2500, L501.5425 ####[facility] [address] [place], [address] Potassium [Moles/Vol] 3.9 mmol/L Normal 3.5-5.1 [facility] Comment on above: Order Comment: 1Y Performed By: #### L 100.0100, L500.2500, L501.5425 ####[facility] [address] [place], [address] Sodium [Moles/Vol] 138 mmol/L Normal 136-145 [facility] Comment on above: Order Comment: 1Y Performed By: #### L 100.0100, L500.2500, L501.5425 ####[facility] [address] [place], [address] Urea nitrogen [Mass/Vol] 18 mg/dL Normal 7-18 [facility] Comment on above: Order Comment: 1Y Performed By: #### L 100.0100, L500.2500, L501.5425 ####[facility] [address] [place], [address] CBC W/Diff, Automatedon 10-2 -2023 Absolute Lymph 2.20 X10 3/uL Normal 0.83-4.51 [facility] Comment on above: Performed By: #### L 100.0100, L500.2500, L501.5425 ####[facility] [address] [place], [address] Absolute Neut 4.8 X10 3/uL Normal 2.0-7.7 [facility] Comment on above: Performed By: #### L 100.0100, L500.2500, L501.5425 ####[facility] [address] [place], [address] Basophils/100 WBC (Bld) 0.9 % Normal 0-1 [facility] Comment on above: Performed By: #### L 100.0100, L500.2500, L501.5425 ####[facility] [address] [place], [address] Eosinophils/100 WBC (Bld) 3.2 % Normal 0-5 [facility] Comment on above: Performed By: #### L 100.0100, L500.2500, L501.5425 ####[facility] [address] [place], [address] Erythrocyte distribution width (RBC) [Ratio] 13.8 % Normal 11.6-14.6 [facility] Comment on above: Performed By: #### L 100.0100, L500.2500, L501.5425 ####[facility] [address] [place], [address] Hematocrit (Bld) [Volume fraction] 40.1 % Normal 37-47 [facility] Comment on above: Performed By: #### L 100.0100, L500.2500, L501.5425 ####[facility] [address] [place], [address] Hemoglobin (Bld) [Mass/Vol] 12.9 g/dL Normal 12.0-15.0 [facility] Comment on above: Performed By: #### L 100.0100, L500.2500, L501.5425 ####[facility] [address] [place], [address] IG% 0.400 Normal 0.0-0.9 [facility] Comment on above: Result Comment: IG% - Immature Granulocytes (promyelocytes, myelocytes and metamyelocytes) > 1% indicates that a LEFT SHIFT is Present. Performed By: #### L 100.0100, L500.2500, L501.5425 ####[facility] [address] [place], [address] Lymphocytes/100 WBC (Bld) 27.7 % Normal 19-41 [facility] Comment on above: Performed By: #### L 100.0100, L500.2500, L501.5425 ####[facility] [address] [place], [address] MCH (RBC) [Entitic mass] 30.6 pg Normal 27.0-32.0 [facility] Comment on above: Performed By: #### L 100.0100, L500.2500, L501.5425 ####[facility] [address] [place], [address] MCHC (RBC) [Mass/Vol] 32.2 g/dL Normal 32-36 [facility] Comment on above: Performed By: #### L 100.0100, L500.2500, L501.5425 ####[facility] [address] [place], [address] MCV (RBC) [Entitic vol] 95.0 fL Normal 81-99 [facility] Comment on above: Performed By: #### L 100.0100, L500.2500, L501.5425 ####[facility] [address] [place], [address] Monocytes/100 WBC (Bld) 7.8 % Normal 0-10 [facility] Comment on above: Performed By: #### L 100.0100, L500.2500, L501.5425 ####[facility] [address] [place], [address] Neutrophils/100 WBC (Bld) 60.0 % Normal 47-70 [facility] Comment on above: Performed By: #### L 100.0100, L500.2500, L501.5425 ####[facility] [address] [place], [address] Nucleated RBC (Bld) [#/Vol] 0 10*3/uL Normal 0-5 [facility] Comment on above: Performed By: #### L 100.0100, L500.2500, L501.5425 ####[facility] [address] [place], [address] Platelet mean volume (Bld) [Entitic vol] 9.6 fL Normal 6.2-12.0 [facility] Comment on above: Performed By: #### L 100.0100, L500.2500, L501.5425 ####[facility] [address] [place], [address] Platelets (Bld) [#/Vol] 275 10*3/uL Normal 150-450 [facility] Comment on above: Performed By: #### L 100.0100, L500.2500, L501.5425 ####[facility] [address] [place], [address] RBC (Bld) [#/Vol] 4.22 10*6/uL Normal 4.2-5.4 [facility] Comment on above: Performed By: #### L 100.0100, L500.2500, L501.5425 ####[facility] [address] [place], [address] RDW SD 47.8 fl High 35.1-43.9 [facility] Comment on above: Performed By: #### L 100.0100, L500.2500, L501.5425 ####[facility] [address] [place], [address] WBC (Bld) [#/Vol] 7.9 10*3/uL Normal 4.4-11.0 [facility] Comment on above: Performed By: #### L 100.0100, L500.2500, L501.5425 ####[facility] [address] [place], [address] Chest 1 View (Portable)on Chest 1 View (Portable) [facility] Imaging Services [address] [place] [address] Chest 1 View (Portable) MR#: [id number] Acct: [id number] Name: RACHELLE CHAMPION Rep #: [id number] : 1955 F 69 From: Osmin Acuña DO PCP: Dr. Yonatan Thompson MD Status: [facility] ER Study: Chest 1 View (Portable) Date of Exam: 09/03/24 Exam# [id number] Ordering Dr: Gaston Sanchez DO [id number] INDICATION: chest pain EXAMINATION/TECHNIQU E: X-RAY - [...] 20:59 EDT Reading Location ID and State: [facility] / [place] Tel [phone], Service support , CC: Dr. Yonatan Thompson MD; Dr. Gaston Sanchez DO Sas Analyst: Signed Normal [facility] Chiropractic Reporton 2023 Chiropractic Report [facility] [address] [place] [address] OFFICE VISIT Date of Service: 09/03/24 MR#: [id number] Acct: [id number] Name: RACHELLE CHAMPION Rep #: [id number] : 1955 Provider: GARCIA Mongtomery Do ssi Age/Sex: 69/F [place] [facility] [place] Status: Signed Intake Vital Signs 05/21/24 [...] tab PO DAILY 06/17/22 09/03/24 History omega 8-wde-dbi-fish oil 300 1 cap PO DAILY 06/17/22 09/03/24 History mg-1,000 mg capsule (Fish Oil) Hydrocortisone 2.5%/lidocaine 5% #30 ea 07/11/23 09/03/24 Rx suppository (cmpd) atorvastatin 10 mg tablet 10 mg PO DAILY 07/11/23 09/03/24 History cholecalciferol (vitamin D3) 75 50 mcg PO DAILY 07/11/23 09/03/24 History mcg (3,000 unit) tablet hydrocortisone 2.5 % topical cream 1 applic MN QD-BID 07/11/23 09/03/24 History with perineal applicator [...] factors: c (more content not included)... Normal [facility] D-Dimer Quantitative (DVT/PE )on 09-03-2024 D-DIMER QUANT 0.48 FEU/ug/m Normal 0.27-0.49 [facility] Comment on above: Result Comment: NORM AL D-Dimer level (<0.50) indicates no DVT or PE. Performed By: #### L 213.5745, L300.8000 ####[facility] [address] [place], [address] Emergency Department Summary on 09-03-2024 Emergency Department Summary [facility] Medical Records Department [address] [place] [address] Emergency Department Summary 09/03/24 MR#: [id number] Acct: [id number] Name: RACHELLE CHAMPION Rep #: [id number] : 1955 69 From: Gaston Sanchez DO [...] tab PO DAILY 06/17/22 09/02/24 History omega 3-djw-lox-fish oil 300 1 cap PO DAILY 06/17/22 [...] Patient denie (more content not included)... Normal [facility] L501.4020on 09-03-2024 TROPONIN-I HS 5 pg/mL Normal 3.0-54.0 [facility] Comment on above: Result Comment: Plea se Note: New Test Units and Gender Specific Reference Ranges. For more information see Policy Stat Procedure Karthaus High Sensitivity Troponin (TNIH) and attachments. Performed By: #### L 501.49661, L506.0400, L501.9520, L500.2500 #### [facility] [address] [facility] [place], [place], [id number] L501.5425on 09-03-2024 TROPONIN-I HS 4 pg/mL Normal 3.0-54.0 [facility] Comment on above: Order Comment: 1Y Result Comment: Plea se Note: New Test Units and Gender Specific Reference Ranges. For more information see Policy Stat Procedure Karthaus High Sensitivity Troponin (TNIH) and attachments. Performed By: #### L 100.0100, L500.2500, L501.5425 ####[facility] [address] [place], [address] Chiropractic Reporton 2023 Chiropractic Report [facility] [address] [place] [address] OFFICE VISIT Date of Service: 08/06/24 MR#: [id number] Acct: [id number] Name: RACHELLE CHAMPION Rep #: [id number] : 1955 Provider: GARCIA Montgomery Do ssi Age/Sex: 69/F [place] [facility] [place] Status: Signed Intake Vital Signs 05/21/24 [...] tab PO DAILY 06/17/22 08/06/24 History omega 9-ozq-xtn-fish oil 300 1 cap PO DAILY 06/17/22 08/06/24 History mg-1,000 mg capsule (Fish Oil) Hydrocortisone 2.5%/lidocaine 5% #30 ea 07/11/23 08/06/24 Rx suppository (cmpd) atorvastatin 10 mg tablet 10 mg PO DAILY 07/11/23 08/06/24 History cholecalciferol (vitamin D3) 75 50 mcg PO DAILY 07/11/23 08/06/24 History mcg (3,000 unit) tablet hydrocortisone 2.5 % topical cream 1 applic MN QD-BID 07/11/23 08/06/24 History with perineal applicator [...] normal ga (more content not included)... Normal [facility] Chiropractic Reporton 2023 Chiropractic Report [facility] [address] [place] [address] OFFICE VISIT Date of Service: 07/09/24 MR#: [id number] Acct: [id number] Name: RACHELLE CHAMPION Rep #: [id number] : 1955 Provider: GARCIA Roy Age/Sex: 69/F [place] [facility] [place] Status: Signed Intake Vital Signs 05/21/24 [...] tab PO DAILY 06/17/22 07/09/24 History omega 2-tca-hdb-fish oil 300 1 cap PO DAILY 06/17/22 07/09/24 History mg-1,000 mg capsule (Fish Oil) Hydrocortisone 2.5%/lidocaine 5% #30 ea 07/11/23 07/09/24 Rx suppository (cmpd) atorvastatin 10 mg tablet 10 mg PO DAILY 07/11/23 07/09/24 History cholecalciferol (vitamin D3) 75 50 mcg PO DAILY 07/11/23 07/09/24 History mcg (3,000 unit) tablet hydrocortisone 2.5 % topical cream 1 applic MN QD-BID 07/11/23 07/09/24 History with perineal applicator [...] associated fact (more content not included)... Normal [facility] Comprehensive Metabolic Prof ilon 06-18-2024 Albumin [Mass/Vol] 3.6 g/dL Normal 3.2-5.0 [facility] Comment on above: Performed By: #### L 501.9557, L501.20370, L506.0400, L500.4050, L500.4100 ####[facility] [address] [place], [address] Albumin/Globulin [Mass ratio] 1.1 {ratio} Normal 0.9-2.4 [facility] Comment on above: Performed By: #### L 501.9520, L501.30435, L506.0400, L500.4050, L500.4100 ####[facility] [address] [place], [address] ALK P 75 U/L Normal 45-117 [facility] Comment on above: Performed By: #### L 501.9520, L501.99352, L506.0400, L500.4050, L500.4100 ####[facility] [address] [place], [address] ALT [Catalytic activity/Vol] 26 U/L Normal 13-56 [facility] Comment on above: Performed By: #### L 501.9520, L501.70856, L506.0400, L500.4050, L500.4100 ####[facility] [address] [place], [address] AST [Catalytic activity/Vol] 16 U/L Normal 15-37 [facility] Comment on above: Performed By: #### L 501.9520, L501.43241, L506.0400, L500.4050, L500.4100 ####[facility] [address] [place], [address] Bilirubin [Mass/Vol] 0.80 mg/dL Normal 0.20-1.00 [facility] Comment on above: Result Comment: For patients on eltrombopag therapy, use of Dimension Karthaus TBIL is not recommended. Performed By: #### L 501.9520, L501.88784, L506.0400, L500.4050, L500.4100 ####[facility] [address] [place], [address] BUN/CRE 16.7 RATIO Normal 10-20 [facility] Comment on above: Performed By: #### L 501.9520, L501.59042, L506.0400, L500.4050, L500.4100 ####[facility] [address] [place], [address] CA,Total 8.8 mg/dL Normal 8.5-10.1 [facility] Comment on above: Performed By: #### L 501.9520, L501.90883, L506.0400, L500.4050, L500.4100 ####[facility] [address] [place], [address] Chloride [Moles/Vol] 109 mmol/L High 98-107 [facility] Comment on above: Performed By: #### L 501.9520, L501.16790, L506.0400, L500.4050, L500.4100 ####[facility] [address] [place], [address] CO2 [Moles/Vol] 27.0 mmol/L Normal 21.0-32.0 [facility] Comment on above: Performed By: #### L 501.9520, L501.61568, L506.0400, L500.4050, L500.4100 ####[facility] [address] [place], [address] Creatinine [Mass/Vol] 0.84 mg/dL Normal 0.55-1.02 [facility] Comment on above: Result Comment: The validity of the calculated GFR GFRAA in patients over 70 years has not been determined. Clinical correlation is essential. Performed By: #### L 501.9520, L501.94166, L506.0400, L500.4050, L500.4100 ####[facility] [address] [place], [address] EST GFR - AA 87 mL/min Normal >60 [facility] Comment on above: Result Comment: Afri can Dutch GFR Calc Performed By: #### L 501.9520, L501.77458, L506.0400, L500.4050, L500.4100 ####[facility] [address] [place], [address] GAP 7 Normal 5-15 [facility] Comment on above: Performed By: #### L 501.9520, L501.24557, L506.0400, L500.4050, L500.4100 ####[facility] [address] [place], [address] GFR/1.73 sq M.predicted among non-blacks MDRD (S/P/Bld) [Vol rate/Area] 72 mL/min/{1.73_m2} Normal >60 [facility] Comment on above: Result Comment: Non- GFR Calc Performed By: #### L 501.9520, L501.43332, L506.0400, L500.4050, L500.4100 ####[facility] [address] [place], [address] Globulin (S) [Mass/Vol] 3.3 g/dL Normal 2.2-4.2 [facility] Comment on above: Performed By: #### L 501.9520, L501.57155, L506.0400, L500.4050, L500.4100 ####[facility] [address] [place], [address] Glucose [Mass/Vol] 114 mg/dL High 74-106 [facility] Comment on above: Result Comment: Fast ing Glucose result from 100 to 125 mg/dL suggests IMPAIRED HOMEOSTASIS per A.D.A. criteria. Performed By: #### L 501.9520, L501.90201, L506.0400, L500.4050, L500.4100 ####[facility] [address] [place], [address] Potassium [Moles/Vol] 3.9 mmol/L Normal 3.5-5.1 [facility] Comment on above: Performed By: #### L 501.9520, L501.14267, L506.0400, L500.4050, L500.4100 ####[facility] [address] [place], [address] Sodium [Moles/Vol] 143 mmol/L Normal 136-145 [facility] Comment on above: Performed By: #### L 501.9520, L501.48400, L506.0400, L500.4050, L500.4100 ####[facility] [address] [place], [address] T PROT 6.9 g/dL Normal 6.4-8.2 [facility] Comment on above: Performed By: #### L 501.9520, L501.54202, L506.0400, L500.4050, L500.4100 ####[facility] [address] [place], [address] Urea nitrogen [Mass/Vol] 14 mg/dL Normal 7-18 [facility] Comment on above: Performed By: #### L 501.9520, L501.30373, L506.0400, L500.4050, L500.4100 ####[facility] [address] [place], [address] Free T3on 06-18-2024 Free T3 [Mass/Vol] 2.2 pg/mL Normal 2.18-3.98 [facility] Comment on above: Performed By: #### L 501.9520, L501.58374, L506.0400, L500.4050, L500.4100 ####[facility] [address] [place], [address] Lipid Profileon 06-18-2024 Cholesterol [Mass/Vol] 231 mg/dL High 200 [facility] Comment on above: Result Comment: <200 mg/dL Desirable 200-240 mg/dL Borderline >240 mg/dL High Risk Performed By: #### L 501.9520, L501.48708, L506.0400, L500.4050, L500.4100 ####[facility] [address] [place], [address] Cholesterol in HDL [Mass/Vol] 51 mg/dL Normal [facility] Comment on above: Result Comment: The drugs N-Acetylcysteine and Metamizole may falsely depress this assay. Reference Range HDL <40 mg/dL Low HDL Cholesterol HDL >or= 60 mg/dL High HDL Cholesterol Performed By: #### L 501.9520, L501.89976, L506.0400, L500.4050, L500.4100 ####[facility] [address] [place], [address] Cholesterol in LDL [Mass/Vol] 152 mg/dL High 0-130 [facility] Comment on above: Performed By: #### L 501.9520, L501.34571, L506.0400, L500.4050, L500.4100 ####[facility] [address] [place], [address] Cholesterol in VLDL [Mass/Vol] 28 mg/dL Normal 5-40 [facility] Comment on above: Performed By: #### L 501.9520, L501.49715, L506.0400, L500.4050, L500.4100 ####[facility] [address] [place], [address] Triglyceride [Mass/Vol] 142 mg/dL Normal [facility] Comment on above: Result Comment: The drugs N-Acetylcysteine and Metamizole may falsely depress this assay. Serum Triglycerides Reference Interval Normal <150 mg/dL Borderline high 150 - 199 mg/dL High 200 - 499 mg/dL Very High > or = 500 mg/dL Performed By: #### L 501.9520, L501.32073, L506.0400, L500.4050, L500.4100 ####[facility] [address] [place], [address] Shoulder min 2 Viewson 06-18 Shoulder min 2 Views [facility] Imaging Services [address] [place] [address] Shoulder min 2 Views MR#: [id number] Acct: [id number] Name: RACHELLE CHAMPION Rep #: [id number] : 1955 F 69 From: Rex davies MD PCP: Dr. Yonatan Thompson MD Status: REG CLI Study: Shoulder min 2 Views Date of Exam: 06/18/24 Exam# [id number] Ordering Dr: Yonatan Thompson MD [id number] INDICATION: PAIN EXAMINATION/TECHNIQU E: X-RAY - LEFT [...] EDT , CC: Dr. Yonatan Thompson MD Sas Analyst: Signed Normal [facility] T4 Free Directon 06-18-2024 T4 FREE DIRECT 0.92 ng/dL Normal 0.76-1.46 [facility] Comment on above: Performed By: #### L 501.9520, L501.00635, L506.0400, L500.4050, L500.4100 ####[facility] [address] [place], [place], [id number] Thyroid Stim Hormone (TSH)on 06-18-2024 TSH 4.47 uIU/mL High 0.358-3.74 [facility] Comment on above: Performed By: #### L 501.9520, L501.25142, L506.0400, L500.4050, L500.4100 ####[facility] [address] [place], [place], [id number] Chiropractic Reporton 2023 Chiropractic Report [facility] [address] [place] [id number] OFFICE VISIT Date of Service: 06/11/24 MR#: [id number] Acct: [id number] Name: RACHELLE CHAMPION Rep #: [id number] : 1955 Provider: GARCIA Roy Age/Sex: 68/F [place] [facility] [place] Status: Signed Intake Vital Signs 12/19/23 [...] tab PO DAILY 06/17/22 06/11/24 History omega 2-dgl-tku-fish oil 300 1 cap PO DAILY 06/17/22 06/11/24 History mg-1,000 mg capsule (Fish Oil) Hydrocortisone 2.5%/lidocaine 5% #30 ea 07/11/23 06/11/24 Rx suppository (cmpd) atorvastatin 10 mg tablet 10 mg PO DAILY 07/11/23 06/11/24 History cholecalciferol (vitamin D3) 75 50 mcg PO DAILY 07/11/23 06/11/24 History mcg (3,000 unit) tablet hydrocortisone 2.5 % topical cream 1 applic MN QD-BID 07/11/23 06/11/24 History with perineal applicator [...] loss of (more content not included)... Normal [facility] No Panel InformationOrdered By: Yonatan Thompson on 12-23-2023 Free Triiodothyronine (T3) pg/dL 2.1 pg/mL 2.18-3.98 [facility] Serum or plasma thyroid stim ulating hormone (TSH) measurement (units/volume)Ordered By: Yonatan Thompson on 12-23-2023 TSH Qn 2.76 uIU/mL 0.358-3.74 [facility] Thin prep Papanicolaou smear with manual screeningOrdered By: Yonatan Thompson on 12-23-2023 Thin prep Papanicolaou smear with manual screening 0.92 ng/dL 0.76-1.46 [facility] Basophil percentageOrdered B y: Yonatan Thompson on 10-21-2023 Bilirubin [Mass/Vol] 0.90 mg/dL 0.20-1.00 [facility] Comment on above: For patients on eltr ombopag therapy, use of Dimension Karthaus TBIL is not recommended. Chloride [Moles/Vol] 106 mmol/L 98-107 [facility] Cholesterol [Mass/Vol] 202 mg/dL <200 [facility] Comment on above: <200 mg/dL Desirable 200-240 mg/dL Borderline >240 mg/dL High Risk Glucose [Mass/Vol] 108 mg/dL 74-106 [facility] Comment on above: Fasting Glucose resu lt from 100 to 125 mg/dL suggests IMPAIRED HOMEOSTASIS per A.D.A. criteria. Potassium [Moles/Vol] 3.9 mmol/L 3.5-5.1 [facility] Protein [Mass/Vol] 7.1 g/dL 6.4-8.2 [facility] Sodium [Moles/Vol] 139 mmol/L 136-145 [facility] Triglyceride [Mass/Vol] 163 mg/dL <199 [facility] Comment on above: The drugs N-Acetylcy steine and Metamizole may falsely depress this assay.Serum Triglycerides Reference Interval Normal <150 mg/dL Borderline high 150 - 199 mg/dL High 200 - 499 mg/dL Very High > or = 500 mg/dL Laboratory - Chemistry and C hemistry - challengeOrdered By: Yonatan Thompson on 10-21-2023 ALP [Catalytic activity/Vol] 71 U/L 45-117 [facility] ALT [Catalytic activity/Vol] 28 U/L 13-56 [facility] CO2 [Moles/Vol] 30.0 mmol/L 21.0-32.0 [facility] Free T4 [Mass/Vol] 1.21 ng/dL 0.76-1.46 [facility] Globulin (S) [Mass/Vol] 3.4 g/dL 2.2-4.2 [facility] Urea nitrogen/Creatinine [Mass ratio] 19.4 mg/mg 10-20 [facility] No Panel InformationOrdered By: Yonatan Thompson on 10-21-2023 Estimated GFR (MDRD) Amer 104 mL/min >60 [facility] Comment on above: GFR Calc Estimated GFR (MDRD) Non-Af Amer 86 mL/min >60 [facility] Comment on above: Non- GFR Calc Free Triiodothyronine (T3) pg/dL 2.9 pg/mL 2.18-3.98 [facility] Thyroid Stimulating Hormone (TSH) 0.24 uIU/mL 0.358-3.74 [facility] [facility] or plasma albumin annabel urement (mass/volume)Ordered By: Yonatan Thompson on 10-21-2023 Albumin [Mass/Vol] 3.7 g/dL 3.2-5.0 [facility] Serum or plasma albumin/glob ulin mass ratioOrdered By: Yonatan Thompson on 10-21-2023 Albumin/Globulin [Mass ratio] 1.1 {ratio} 0.9-2.4 [facility] Serum or plasma calcium annabel urement (mass/volume)Ordered By: Yonatan Thompson on 10-21-2023 Calcium [Mass/Vol] 9.2 mg/dL 8.5-10.1 [facility] Serum or plasma cholesterol in HDL measurement (mass/volume)Ordered By: Yonatan Thompson on 10-21-2023 Cholesterol in HDL [Mass/Vol] 57 mg/dL >40 [facility] Comment on above: The drugs N-Acetylcy steine and Metamizole may falsely depress this assay. Reference Range HDL <40 mg/dL Low HDL Cholesterol HDL >or= 60 mg/dL High HDL Cholesterol Serum or plasma cholesterol in VLDL measurement (mass/volume)Ordered By: Yonatan Thompson on 10-21-2023 Cholesterol in VLDL [Mass/Vol] 33 mg/dL 5-40 [facility] Serum or plasma creatinine m easurement (mass/volume)Ordered By: Yonatan Thompson on 10-21-2023 Creatinine [Mass/Vol] 0.72 mg/dL 0.55-1.02 [facility] Comment on above: The validity of the calculated GFR & GFRAA in patients over 70 years has not been determined. Clinical correlation is essential. Serum or plasma low density lipoprotein (LDL) cholesterol measurement (mass/volume)Ordered By: Yonatan Thompson on 10-21-2023 Cholesterol in LDL [Mass/Vol] 112 mg/dL 0-130 [facility] Serum or plasma urea nitroge n measurement (mass/volume)Ordered By: Yonatan Thompson on 10-21-2023 Urea nitrogen [Mass/Vol] 14 mg/dL 7-18 [facility] Thin prep Papanicolaou smear with manual screeningOrdered By: Yonatan Thompson on 10-21-2023 Thin prep Papanicolaou smear with manual screening 18 U/L 15-37 [facility] Thin prep Papanicolaou smear with manual screening 3 5-15 [facility] Basophil percentageOrdered B y: Yonatan Thompson on 07-15-2023 Bilirubin [Mass/Vol] 0.70 mg/dL 0.20-1.00 [facility] Comment on above: For patients on eltr ombopag therapy, use of Dimension Karthaus TBIL is not recommended. Chloride [Moles/Vol] 110 mmol/L 98-107 [facility] Cholesterol [Mass/Vol] 191 mg/dL <200 [facility] Comment on above: <200 mg/dL Desirable 200-240 mg/dL Borderline >240 mg/dL High Risk Glucose [Mass/Vol] 103 mg/dL 74-106 [facility] Comment on above: Fasting Glucose resu lt from 100 to 125 mg/dL suggests IMPAIRED HOMEOSTASIS per A.D.A. criteria. Potassium [Moles/Vol] 4.3 mmol/L 3.5-5.1 [facility] Protein [Mass/Vol] 7.0 g/dL 6.4-8.2 [facility] Sodium [Moles/Vol] 142 mmol/L 136-145 [facility] Triglyceride [Mass/Vol] 108 mg/dL <199 [facility] Comment on above: The drugs N-Acetylcy steine and Metamizole may falsely depress this assay.Serum Triglycerides Reference Interval Normal <150 mg/dL Borderline high 150 - 199 mg/dL High 200 - 499 mg/dL Very High > or = 500 mg/dL Laboratory - Chemistry and C hemistry - challengeOrdered By: Yonatan Thompson on 07-15-2023 ALP [Catalytic activity/Vol] 70 U/L 45-117 [facility] ALT [Catalytic activity/Vol] 26 U/L 13-56 [facility] CO2 [Moles/Vol] 28.0 mmol/L 21.0-32.0 [facility] Free T4 [Mass/Vol] 1.29 ng/dL 0.76-1.46 [facility] Globulin (S) [Mass/Vol] 3.3 g/dL 2.2-4.2 [facility] Urea nitrogen/Creatinine [Mass ratio] 20.3 mg/mg 10-20 [facility] No Panel InformationOrdered By: Yonatan Thompson on 07-15-2023 Estimated GFR (MDRD) Amer 101 mL/min >60 [facility] Comment on above: GFR Calc Estimated GFR (MDRD) Non-Af Amer 83 mL/min >60 [facility] Comment on above: Non- GFR Calc Free Triiodothyronine (T3) pg/dL 2.3 pg/mL 2.18-3.98 [facility] Thyroid Stimulating Hormone (TSH) 0.37 uIU/mL 0.358-3.74 [facility] Serum or plasma albumin annabel urement (mass/volume)Ordered By: Yonatan Thompson on 07-15-2023 Albumin [Mass/Vol] 3.7 g/dL 3.2-5.0 [facility] Serum or plasma albumin/glob ulin mass ratioOrdered By: Yonatan Thompson on 07-15-2023 Albumin/Globulin [Mass ratio] 1.1 {ratio} 0.9-2.4 [facility] Serum or plasma calcium annabel urement (mass/volume)Ordered By: Yonatan Thompson on 07-15-2023 Calcium [Mass/Vol] 8.8 mg/dL 8.5-10.1 [facility] Serum or plasma cholesterol in HDL measurement (mass/volume)Ordered By: Yonatan Thompson on 07-15-2023 Cholesterol in HDL [Mass/Vol] 57 mg/dL >40 [facility] Comment on above: The drugs N-Acetylcy steine and Metamizole may falsely depress this assay. Reference Range HDL <40 mg/dL Low HDL Cholesterol HDL >or= 60 mg/dL High HDL Cholesterol Serum or plasma cholesterol in VLDL measurement (mass/volume)Ordered By: Yonatan Thompson on 07-15-2023 Cholesterol in VLDL [Mass/Vol] 22 mg/dL 5-40 [facility] Serum or plasma creatinine m easurement (mass/volume)Ordered By: Yonatan Thompson on 07-15-2023 Creatinine [Mass/Vol] 0.74 mg/dL 0.55-1.02 [facility] Comment on above: The validity of the calculated GFR & GFRAA in patients over 70 years has not been determined. Clinical correlation is essential. Serum or plasma low density lipoprotein (LDL) cholesterol measurement (mass/volume)Ordered By: Yonatan Thompson on 07-15-2023 Cholesterol in LDL [Mass/Vol] 112 mg/dL 0-130 [facility] Serum or plasma urea nitroge n measurement (mass/volume)Ordered By: Yonatan Thompson on 07-15-2023 Urea nitrogen [Mass/Vol] 15 mg/dL 7-18 [facility] Thin prep Papanicolaou smear with manual screeningOrdered By: Yonatan Thompson on 07-15-2023 Thin prep Papanicolaou smear with manual screening 12 U/L 15-37 [facility] Thin prep Papanicolaou smear with manual screening 4 5-15 [facility] CNPNon 05-18-2023 [facility] Telephone ([facility]) RACHELLE CHAMPION ([id number]) 1955 F Date Time Provider Department 05/18/23 ASHER GARCIA [facility] During your visit today, we recorded the [...] Date Reviewed: 05/17/2023 Reviewed by: Scooby Henson APRN.TAX ACCOUNTING MANAGER - Fully Assessed Reason for Visit: Results [95] Primary Visit Diagnosis:Acute right ankle pain [M25.571] Order(s):CONSULT TO PODIATRY [9034] Order #: [id number]: 1 FUTURE Prescriptions as of 05/18/2023 - Fcxzt-8-HWF-EPA-Fish Oil 300-1,000 mg cap Take by mouth once daily. - ergocalciferol, vitamin D2, (VITAMIN D2 ORAL) Take by mouth once daily. - COQ10, LIPOSOMAL UBIQUINOL, ORAL Take by mouth once daily. - glucosamine/msm/csa/ amelia/csx889 ([id number] M-AMELIA-115HC ORAL) Take by mouth once daily. [...] Status:Closed by AMANDA FAY on 05/18/23 Normal [facility] No Panel Informationon 05-18 IMPRESSION: No acute osseous abnormality Sas Analyst: PSCB Transcribe Date/Time: May 18 2023 8:57A Dictated by : NGOZI AMOR MD This examination was interpreted and the report reviewed and electronically signed by: NGOZI AMOR MD on May 18 2023 9:00AM EST DIVISION OF RADIOLOGY Radiology Study observation (narrative) [facility] No Panel InformationOrdered By: Ccf Provider on 05-18-2023 [facility] XR ANKLE 3V AP/LAT/OBL RTon 05-18-2023 XR [...] calcaneal spur. IMPRESSION: No acute osseous abnormality Sas Analyst: PSCB Transcribe Date/Time: May 18 2023 8:57A Dictated by : NGOZI AMOR MD This examination was interpreted and the report reviewed and electronically signed by: NGOZI AMOR MD on May 18 2023 9:00AM EST [id number] Normal [facility] XR Ankle - right AP and Late [...] OF RADIOLOGY Provider, [facility] - 05/18/2023 * * *Final Report* * [...] spur. IMPRESSION IMPRESSION: No acute osseous abnormality Sas Analyst: [facility] Transcribe Date/Time: May 18 2023 8:57A Dictated by : NGOZI AMOR MD This examination was interpreted and the report reviewed and electronically signed by: NGOZI AMOR MD on May 18 2023 9:00AM [facility] XR FOOT 3V AP/LAT/OBL RTon 0 05-18-2023 [...] calcaneal spur. IMPRESSION: No acute osseous abnormality Sas Analyst: [facility] Transcribe Date/Time: May 18 2023 8:57A Dictated by : NGOZI AMOR MD This examination was interpreted and the report reviewed and electronically signed by: NGOZI AMOR MD on May 18 2023 9:00AM EST [id number] Normal [facility] XR Foot - right AP and Later [...] OF RADIOLOGY Provider, [facility] - 05/18/2023 * * *Final Report* * [...] spur. IMPRESSION IMPRESSION: No acute osseous abnormality Sas Analyst: EUSEBIO Transcribe Date/Time: May 18 2023 8:57A Dictated by : NGOZI AMOR MD This examination was interpreted and the report reviewed and electronically signed by: NGOZI AMOR MD on May 18 2023 9:00AM EST [facility] CNOVon 05-17-2023 CNOV Office Visit ([facility]) RACHELLE CHAMPION ([id number]) 1955 F Date Time Provider Department 05/17/23 8:15 AM SCOOBY HENSON [facility] During your visit today, we recorded the following information about you: Temperature Pulse Respiration Blood pressure 98.4 degrees 70/minute 18/minute 110/62 Weight 96.8 kg Scooby Henson APRN.TAX ACCOUNTING MANAGER 05/17/2023 8:51 AM Signed Subjective HPI Nontoxic-appearing [...] Date Allergic rhinitis Detached retina, right Glaucoma Fadlubp-wbjxgco-oehf coma syndrome of right eye PAST SURGICAL HISTORY Procedure Laterality Date ARTHROSCOPY KNEE; W/ FIXATION bone spur left, torn meniscus on right EXCHANGE OF INTRAOCULAR LENS S/p IOL Exchange/PPV OD:04/27/2021 PAST SURGICAL HISTORY OF LASIK both eyes. VAGINAL HYSTERECTOMY UTERUS 250 GM/< Hysterectomy, vaginal VITRECTOMY,MECHANICA L S/p IOL Exchange/PPV OD:04/27/2021 ALLERGIES Adhesive, Penicillins, Seasonal Allergies, and Xarelto [Rivaroxaban] MEDICATIONS Fycnn-3-GXA-EPA-Fish Oil 300-1,000 mg cap Take by mouth once daily. ergocalciferol, vitamin D2, (VITAMIN D2 ORAL) Take by mouth once daily. COQ10, LIPOSOMAL UBIQUINOL, ORAL Take by mouth once daily. glucosamine/msm/csa/ amelia/xoy139 ([id number]-[id number] M-AMELIA-115HC ORAL) Take by mouth once daily. [...] Pulmonary: Effort: (more content not included)... Normal [facility] Basophil percentageOrdered B y: Dr. Knowles on 03-08-2023 WBC (Bld) [#/Vol] 6.9 10*3/uL 4.4-11.0 [facility] Blood erythrocytes count (nu mber/volume)Ordered By: Dr. Knowles on 03-08-2023 RBC (Bld) [#/Vol] 4.29 10*6/uL 4.2-5.4 [facility] Blood hemoglobin measurement (mass/volume)Ordered By: Dr. Knowles on 03-08-2023 Hemoglobin (Bld) [Mass/Vol] 13.1 g/dL 12.0-15.0 [facility] Blood platelet mean volumeOr dered By: Dr. Knowles on 03-08-2023 Platelet mean volume (Bld) [Entitic vol] 10.1 fL 6.2-12.0 [facility] Determination of erythrocyte mean corpuscular volume (MCV)Ordered By: Dr. Knowles on 03-08-2023 MCV (RBC) [Entitic vol] 96.5 fL 81-99 [facility] Erythrocyte sedimentation ra teOrdered By: Dr. Knowles on 03-08-2023 ESR (Bld) [Velocity] 5 mm/h 0-30 [facility] Hematocrit Auto (Bld) [Volum e fraction]Ordered By: Dr. Knowles on 03-08-2023 Hematocrit (Bld) [Volume fraction] 41.4 % 37-47 [facility] Laboratory - Hematology and Cell countsOrdered By: Dr. Knowles on 03-08-2023 Erythrocyte distribution width (RBC) [Entitic vol] 49.3 fL 35.1-43.9 [facility] Erythrocyte distribution width (RBC) [Ratio] 13.7 % 11.6-14.6 [facility] MCH (RBC) [Entitic mass] 30.5 pg 27.0-32.0 [facility] MCHC Auto (RBC) [Mass/Vol]Or dered By: Dr. Knowles on 03-08-2023 MCHC (RBC) [Mass/Vol] 31.6 g/dL 32-36 [facility] Platelets bldOrdered By: Dr. Knowles on 03-08-2023 Platelets (Bld) [#/Vol] 236 10*3/uL 150-450 [facility] Basophil percentageOrdered B y: Dr. Thompson on 12-23-2022 Chloride [Moles/Vol] 104 mmol/L 98-107 [facility] Glucose [Mass/Vol] 120 mg/dL 74-106 [facility] Comment on above: Fasting Glucose resu lt from 100 to 125 mg/dL suggests IMPAIRED HOMEOSTASIS per A.D.A. criteria. Potassium [Moles/Vol] 3.9 mmol/L 3.5-5.1 [facility] Sodium [Moles/Vol] 140 mmol/L 136-145 [facility] Laboratory - Chemistry and C hemistry - challengeOrdered By: Dr. Thompson on 12-23-2022 CO2 [Moles/Vol] 29.0 mmol/L 21.0-32.0 [facility] Free T4 [Mass/Vol] 1.18 ng/dL 0.76-1.46 [facility] Urea nitrogen/Creatinine [Mass ratio] 18.8 mg/mg 10-20 [facility] No Panel InformationOrdered By: Dr. Thompson on 12-23-2022 Estimated GFR (MDRD) Amer 100 mL/min >60 [facility] Comment on above: GFR Calc Estimated GFR (MDRD) Non-Af Amer 83 mL/min >60 [facility] Comment on above: Non- GFR Calc Free Triiodothyronine (T3) pg/dL 2.7 pg/mL 2.18-3.98 [facility] Thyroid Stimulating Hormone (TSH) 1.54 uIU/mL 0.358-3.74 [facility] Serum or plasma calcium annabel urement (mass/volume)Ordered By: Dr. Thompson on 12-23-2022 Calcium [Mass/Vol] 9.2 mg/dL 8.5-10.1 [facility] Serum or plasma creatinine m easurement (mass/volume)Ordered By: Dr. Thompson on 12-23-2022 Creatinine [Mass/Vol] 0.75 mg/dL 0.55-1.02 [facility] Comment on above: The validity of the calculated GFR & GFRAA in patients over 70 years has not been determined. Clinical correlation is essential. Serum or plasma urea nitroge n measurement (mass/volume)Ordered By: Dr. Thompson on 12-23-2022 Urea nitrogen [Mass/Vol] 14 mg/dL 7-18 [facility] Thin prep Papanicolaou smear with manual screeningOrdered By: Dr. Thompson on 12-23-2022 Thin prep Papanicolaou smear with manual screening 7 5-15 [facility] Whole blood hemoglobin A1c/t otal hemoglobin ratio (mass fraction)Ordered By: Dr. Thompson on 12-23-2022 HbA1c (Bld) [Mass fraction] 5.8 % 3.8-5.6 [facility] Comment on above: Normal < 5.7 % Predi abetic 5.7 - 6.4 % Diabetic >or= 6.5 % Please note range changes. Basophil percentageOrdered B y: Dr. Thompson on 09-16-2022 Chloride [Moles/Vol] 106 mmol/L 98-107 [facility] Cholesterol [Mass/Vol] 286 mg/dL <200 [facility] Comment on above: <200 mg/dL Desirable 200-240 mg/dL Borderline >240 mg/dL High Risk Glucose [Mass/Vol] 108 mg/dL 74-106 [facility] Comment on above: Fasting Glucose resu lt from 100 to 125 mg/dL suggests IMPAIRED HOMEOSTASIS per A.D.A. criteria. Potassium [Moles/Vol] 3.9 mmol/L 3.5-5.1 [facility] Sodium [Moles/Vol] 140 mmol/L 136-145 [facility] Triglyceride [Mass/Vol] 218 mg/dL <199 [facility] Comment on above: The drugs N-Acetylcy steine and Metamizole may falsely depress this assay.Serum Triglycerides Reference Interval Normal <150 mg/dL Borderline high 150 - 199 mg/dL High 200 - 499 mg/dL Very High > or = 500 mg/dL Laboratory - Chemistry and C hemistry - challengeOrdered By: Dr. Thompson on 09-16-2022 CO2 [Moles/Vol] 28.0 mmol/L 21.0-32.0 [facility] Free T4 [Mass/Vol] 1.12 ng/dL 0.76-1.46 [facility] Urea nitrogen/Creatinine [Mass ratio] 19.5 mg/mg 10-20 [facility] No Panel InformationOrdered By: Dr. Thompson on 09-16-2022 Estimated GFR (MDRD) Amer 114 mL/min >60 [facility] Comment on above: GFR Calc Estimated GFR (MDRD) Non-Af Amer 95 mL/min >60 [facility] Comment on above: Non- GFR Calc Free Triiodothyronine (T3) pg/dL 2.9 pg/mL 2.18-3.98 [facility] Thyroid Stimulating Hormone (TSH) 0.99 uIU/mL 0.358-3.74 [facility] Serum or plasma calcium annabel urement (mass/volume)Ordered By: Dr. Thompson on 09-16-2022 Calcium [Mass/Vol] 9.2 mg/dL 8.5-10.1 [facility] Serum or plasma cholesterol in HDL measurement (mass/volume)Ordered By: Dr. Thompson on 09-16-2022 Cholesterol in HDL [Mass/Vol] 56 mg/dL >40 [facility] Comment on above: The drugs N-Acetylcy steine and Metamizole may falsely depress this assay. Reference Range HDL <40 mg/dL Low HDL Cholesterol HDL >or= 60 mg/dL High HDL Cholesterol Serum or plasma cholesterol in VLDL measurement (mass/volume)Ordered By: Dr. Thompson on 09-16-2022 Cholesterol in VLDL [Mass/Vol] 44 mg/dL 5-40 [facility] Serum or plasma creatinine m easurement (mass/volume)Ordered By: Dr. Thompson on 09-16-2022 Creatinine [Mass/Vol] 0.67 mg/dL 0.55-1.02 [facility] Comment on above: The validity of the calculated GFR & GFRAA in patients over 70 years has not been determined. Clinical correlation is essential. Serum or plasma low density lipoprotein (LDL) cholesterol measurement (mass/volume)Ordered By: Dr. Thompson on 09-16-2022 Cholesterol in LDL [Mass/Vol] 186 mg/dL 0-130 [facility] Serum or plasma urea nitroge n measurement (mass/volume)Ordered By: Dr. Thompson on 09-16-2022 Urea nitrogen [Mass/Vol] 13 mg/dL 7-18 [facility] Thin prep Papanicolaou smear with manual screeningOrdered By: Dr. Thompson on 09-16-2022 Thin prep Papanicolaou smear with manual screening 6 5-15 [facility] Basophil percentageon 2021 Bilirubin [Mass/Vol] 0.70 mg/dL 0.20-1.00 [facility] Work Phone: Comment on above: For patients on eltr ombopag therapy, use of Dimension Karthaus TBIL is not recommended. Chloride [Moles/Vol] 106 mmol/L 98-107 [facility] Work Phone: Cholesterol [Mass/Vol] 233 mg/dL <200 [facility] Work Phone: Comment on above: <200 mg/dL Desirable 200-240 mg/dL Borderline >240 mg/dL High Risk Glucose [Mass/Vol] 108 mg/dL 74-106 [facility] Work Phone: Comment on above: Fasting Glucose resu lt from 100 to 125 mg/dL suggests IMPAIRED HOMEOSTASIS per A.D.A. criteria. Potassium [Moles/Vol] 3.7 mmol/L 3.5-5.1 [facility] Work Phone: Protein [Mass/Vol] 7.0 g/dL 6.4-8.2 [facility] Work Phone: Sodium [Moles/Vol] 139 mmol/L 136-145 [facility] Work Phone: Triglyceride [Mass/Vol] 142 mg/dL <199 [facility] Work Phone: Comment on above: The drugs N-Acetylcy steine and Metamizole may falsely depress this assay.Serum Triglycerides Reference Interval Normal <150 mg/dL Borderline high 150 - 199 mg/dL High 200 - 499 mg/dL Very High > or = 500 mg/dL Laboratory - Chemistry and C hemistry - challengeon 03-18-2022 ALP [Catalytic activity/Vol] 72 U/L 45-117 [facility] Work Phone: ALT [Catalytic activity/Vol] 28 U/L 13-56 [facility] Work Phone: CO2 [Moles/Vol] 27.0 mmol/L 21.0-32.0 [facility] Work Phone: Free T4 [Mass/Vol] 1.32 ng/dL 0.76-1.46 [facility] Work Phone: Globulin (S) [Mass/Vol] 3.3 g/dL 2.2-4.2 [facility] Work Phone: Urea nitrogen/Creatinine [Mass ratio] 17.9 mg/mg 10-20 [facility] Work Phone: No Panel Informationon 03-18 Estimated GFR (MDRD) Amer 103 mL/min >60 [facility] Work Phone: Comment on above: GFR Calc Estimated GFR (MDRD) Non-Af Amer 85 mL/min >60 [facility] Work Phone: Comment on above: Non- GFR Calc Free Triiodothyronine (T3) pg/dL 2.9 pg/mL 2.18-3.98 [facility] Work Phone: Thyroid Stimulating Hormone (TSH) 0.38 uIU/mL 0.358-3.74 [facility] Work Phone: Serum or plasma albumin annabel urement (mass/volume)on 03-18-2022 Albumin [Mass/Vol] 3.7 g/dL 3.2-5.0 [facility] Work Phone: Serum or plasma albumin/glob ulin mass ratioon 03-18-2022 Albumin/Globulin [Mass ratio] 1.1 {ratio} 0.9-2.4 [facility] Work Phone: Serum or plasma calcium annabel urement (mass/volume)on 03-18-2022 Calcium [Mass/Vol] 8.9 mg/dL 8.5-10.1 [facility] Work Phone: Serum or plasma cholesterol in HDL measurement (mass/volume)on 03-18-2022 Cholesterol in HDL [Mass/Vol] 53 mg/dL >40 [facility] Work Phone: Comment on above: The drugs N-Acetylcy steine and Metamizole may falsely depress this assay. Reference Range HDL <40 mg/dL Low HDL Cholesterol HDL >or= 60 mg/dL High HDL Cholesterol Serum or plasma cholesterol in VLDL measurement (mass/volume)on 03-18-2022 Cholesterol in VLDL [Mass/Vol] 28 mg/dL 5-40 [facility] Work Phone: Serum or plasma creatinine m easurement (mass/volume)on 03-18-2022 Creatinine [Mass/Vol] 0.73 mg/dL 0.55-1.02 [facility] Work Phone: Comment on above: The validity of the calculated GFR & GFRAA in patients over 70 years has not been determined. Clinical correlation is essential. Serum or plasma low density lipoprotein (LDL) cholesterol measurement (mass/volume)on 03-18-2022 Cholesterol in LDL [Mass/Vol] 152 mg/dL 0-130 [facility] Work Phone: Serum or plasma urea nitroge n measurement (mass/volume)on 03-18-2022 Urea nitrogen [Mass/Vol] 13 mg/dL 7-18 [facility] Work Phone: Thin prep Papanicolaou smear with manual screeningon 03-18-2022 Thin prep Papanicolaou smear with manual screening 16 U/L 15-37 [facility] Work Phone: Thin prep Papanicolaou smear with manual screening 6 5-15 [facility] Work Phone: Office Visit: Spine Visit- N tanya & upper back painon 08-01-2017 Documentation of current medications (procedure) Done Invalid Interpretation Code [facility] Work Phone: Office Visit: Spine Visit- N tanya & lower back painon 04-28-2017 Protein mass conc Done [facility] Work Phone: Office Visit: Spine Visit-ne ck , lower lumbar painon 02-09-2017 Tobacco smoking status NY[facility] Never Invalid Interpretation Code [facility] Work Phone: Tobacco smoking status [facility] Former smoker [facility] Work Phone: Tobacco use [facility] Former smoker Invalid Interpretation Code [facility] Work Phone: Office Visit: Spine Visit - Neck and Upper Back Painon 11-18-2014 MG Breast screening Normal Bilateral Invalid Interpretation Code [facility] Work Phone: Office Visit: Spine Visit - Neck and Upper Back Painon 11-15-2011 Colonoscopy (procedure) Colonoscopy (procedure) Invalid Interpretation Code [facility] Work Phone: Protein mass conc Colonoscopy (procedure) [facility] Work Phone: OCT MACULA CIRRUS OU (BOTH E YES) [facility] Vital Signs Date Time Vital Sign Value Performing Clinician Facility 02-11-2025 14:52-0400 Body height 172.[address] Yonatan Thompson MD Work Phone: [facility] 07-11-2023 08:23-0400 Body height 172.[address] Yonatan Thompson Work Phone: [facility] 07-11-2023 08:23-0400 Body mass index (BMI) [Ratio] 32.3 kg/m2 Dr. Yonatan Thompson Work Phone: [facility] 07-11-2023 08:23-0400 Body temperature 97.3 [degF] Dr. Yonatan Thompson Work Phone: [facility] 07-11-2023 08:23-0400 Body weight 96.[address] Yonatan Thompson Work Phone: [facility] 07-11-2023 08:23-0400 Diastolic blood pressure 75 mm[Hg] Dr. Yonatan Thompson Work Phone: [facility] 07-11-2023 08:23-0400 Heart rate 79 /min Dr. Yonatan Thompson Work Phone: [facility] 07-11-2023 08:23-0400 Respiratory rate 18 /min Dr. Yonatan Thompson Work Phone: [facility] 07-11-2023 08:23-0400 SaO2% (BldA) [Mass fraction] 96 % Dr. Yonatan Thompson Work Phone: [facility] 07-11-2023 08:23-0400 Systolic blood pressure 123 mm[Hg] Dr. Yonatan Thompson Work Phone: [facility] 05-17-2023 08:22-0400 Body temperature 98.4 [degF] Scooby Henson APRN.TAX ACCOUNTING MANAGER Work Phone: [facility] 05-17-2023 08:22-0400 Body weight 96.8 kg Scooby Henson APRN.CNP Work Phone: [facility] 05-17-2023 08:22-0400 Diastolic blood pressure 62 mm[Hg] Scooby Henson APRN.TAX ACCOUNTING MANAGER Work Phone: [facility] 05-17-2023 08:22-0400 Heart rate 70 /min Scooby Henson COMPLIANCE REVIEW OFFICER.TAX ACCOUNTING MANAGER Work Phone: [facility] 05-17-2023 08:22-0400 Respiratory rate 18 /min Scooby [facility] COMPLIANCE REVIEW OFFICER.TAX ACCOUNTING MANAGER Work Phone: [facility] 05-17-2023 08:22-0400 SaO2% (BldA) [Mass fraction] 97 % Scooby [facility] COMPLIANCE REVIEW OFFICER.TAX ACCOUNTING MANAGER Work Phone: [facility] 05-17-2023 08:22-0400 Systolic blood pressure 110 mm[Hg] Scooby [facility] COMPLIANCE REVIEW OFFICER.TAX ACCOUNTING MANAGER Work Phone: [facility] 12-13-2016 09:19-0500 BP Diastolic 78 mm[Hg] Valentina Dossi GARC[facility] Work Phone: 12-13-2016 09:19-0500 BP Systolic 138 mm[Hg] Valentina Dossi [facility] Work Phone: 12-13-2016 09:19-0500 Weight 96.03 kg Valentina [employer] GARCIA [facility] Work Phone: Encounters Encounter Date Encounter Type Care Provider Facility Start: 05-29-2025 ambulatory Yonatan Thompson Facility:[facility] Start: 05-24-[address] Yonatan Thompson MD -Outpatient Breast Imaging Work Phone: Start: 05-24-2025 ambulatory Yonatan Thompson Facility:[facility] Start: 05-22-2025 End: 05-22-[address] Jaciel Gavin DO -Laboratory Specimen Work Phone: Start: 05-22-2025 End: 05-22-2025 ambulatory Yonatan Thompson Facility:[facility] Start: 05-20-2025 End: 05-20-[address] Yonatan Thompson MD Work Phone: -Laboratory Start: 05-20-2025 End: 05-20-[address] Jaciel Gavin DO -Laboratory Work Phone: Start: 05-20-2025 End: 05-20-2025 [facility] Start: 05-06-2025 End: 05-06-[address] Valentina Flores DC -[facility] Work Phone: Start: 05-06-2025 End: 05-06-[address] Yonatan Thompson MD Work Phone: [facility] Work Phone: Start: 04-29-2025 End: 04-29-2025 ambulatory JACIEL GAVIN DO Facility:[facility] Start: 04-09-2025 End: 04-09-[address] Valentina Flores DC -[facility] Work Phone: Start: 04-09-2025 End: 04-09-[address] Yonatan Thompson MD Work Phone: [facility] Work Phone: Start: 03-29-2025 End: 03-29-[address] Yonatan Thompson MD Work Phone: [facility] Work Phone: Start: 03-29-2025 End: 03-29-[address] Yonatan Thompson MD -Laboratory [facility] Start: 03-29-2025 End: 03-29-2025 ambulatory Yonatan Thompson Facility:[facility] Start: 03-22-2025 End: 03-22-[address] Yonatan Thompson MD Work Phone: [facility] Work Phone: Start: 03-22-2025 End: 03-22-[address] [facility] Start: 03-22-2025 End: 03-22-2025 ambulatory Yonatan Thompson Facility:[facility] Start: 03-11-2025 End: 03-11-[address] Valentina Flores DC -[facility] Work Phone: Start: 03-11-2025 End: 03-11-2025 ambulatory Valentina Flores Facility:[facility] Start: 02-11-2025 End: 02-11-[address] Valentina Flores DC -[facility] Work Phone: Start: 02-11-2025 End: 02-11-2025 ambulatory Valentina Flores Facility:[facility] Start: 01-10-2025 End: 01-10-[address] Valentina Flores DC -[facility] Work Phone: Start: 01-10-2025 End: 01-10-2025 ambulatory Valentina Flores Facility:[facility] Start: 12-17-2024 End: 12-17-[address] Yonatan Thompson MD -Laboratory, [facility] Start: 12-17-2024 End: 12-17-2024 ambulatory Yonatan Thompson Facility:[facility] Start: 11-26-2024 End: 11-26-2024 ambulatory Valentina Flores Facility:[facility] Start: 10-29-2024 End: 10-29-2024 ambulatory Yonatan Thompson Facility:[facility] Start: 10-01-2024 End: 10-01-2024 ambulatory Valentina Dossi Facility:[facility] Start: 09-10-2024 End: 09-10-2024 ambulatory Yonatan Thompson Facility:[facility] Start: 09-03-2024 End: 09-03-2024 Emergency department patient visit Gaston Sanchez Facility:[facility] Start: 09-03-2024 End: 09-03-2024 ambulatory Valentina Flores Facility:[facility] Start: 08-06-2024 End: 08-06-2024 ambulatory Yonatan Thompson Facility:[facility] Start: 07-09-2024 End: 07-09-2024 ambulatory Valentina Dossi Facility:[facility] Start: 06-18-2024 End: 06-18-2024 ambulatory Yonatan Thompson Facility:[facility] Start: 06-11-2024 End: 06-11-2024 ambulatory Valentinabalbina Bolanossi Facility:[facility] Start: 12-23-2023 End: 12-23-[address] Yonatan Thompson Work Phone: [facility] Work Phone: Start: 12-23-2023 End: 12-23-[address] Yonatan Thompson Work Phone: [facility] Start: 12-19-2023 End: 12-19-[address] Yonatan Thompson Work Phone: [facility] Work Phone: Start: 11-21-2023 End: 11-21-[address] Yonatan Thompson Work Phone: [facility] Work Phone: Start: 10-24-2023 End: 10-24-[address] Yonatan hTompson Work Phone: [facility] Work Phone: Start: 10-21-2023 End: 10-21-[address] Yonatan Thompson Work Phone: [facility] Start: 10-03-2023 End: 10-03-[address] Yonatan Thompson Work Phone: [facility] Work Phone: Start: 09-01-2023 End: 09-01-[address] Yonatan Thompson Work Phone: [facility] Work Phone: Start: 07-26-2023 End: 07-26-[address] Yonatan Thompson Work Phone: [facility] Work Phone: Start: 07-19-2023 End: 07-19-[address] Yonatan Thompson Work Phone: [facility] Work Phone: Start: 07-19-2023 End: 07-19-[address] Yonatan Thompson Work Phone: [facility]-Outpatient Breast Imaging Work Phone: Start: 07-15-2023 End: 07-15-[address] Yonatan Thompson Work Phone: [facility] Work Phone: Start: 07-15-2023 End: 07-15-[address] Yonatan Thompson Work Phone: [facility] Start: 07-11-2023 End: 07-11-[address] Yonatan Thompson Work Phone: [facility] Work Phone: Start: 07-01-2023 End: 07-01-[address] Yonatan Thompson Work Phone: [facility] Start: 06-27-2023 End: 06-27-[address] [facility] Start: 05-30-2023 End: 05-30-[address] [facility] Work Phone: Start: 05-19-2023 ambulatory Pcp (Historical) [facility] Start: 05-18-2023 Telephone encounter Asher burkett PA-C Work Phone: [facility] Comment on above: Results Start: 05-18-2023 End: 05-18-2023 ambulatory [facility] Facility:[facility] Start: 05-18-2023 End: 05-18-2023 Subsequent hospital visit by physician [facility] Work Phone: Radiology Comment on above: Foot pain, right [M7 9.671] Start: 05-17-2023 End: 05-17-2023 ambulatory YONATAN THOMPSON Facility:[facility] Start: 05-17-2023 End: 05-17-2023 Office outpatient visit 15 minutes Scooby Sixto [facility] Work Phone: [facility] Comment on above: Foot pain, right (Pr imary Dx); Acute right ankle pain Start: 04-18-2023 End: 04-18-[address] Yonatan Thompson Work Phone: [facility] Work Phone: Start: 03-21-2023 End: 03-21-[address] Yonatan Thompson Work Phone: [facility] Work Phone: Start: 03-08-2023 End: 03-08-[address] Yonatan Thompson Work Phone: [facility] Work Phone: Start: 03-08-2023 End: 03-08-[address] Yonatan Thompson Work Phone: [facility] Start: 02-21-2023 End: 02-21-[address] Yonatan Thompson Work Phone: [facility] Start: 01-17-2023 End: 01-17-[address] Yonatan Thompson Work Phone: [facility] Start: 12-23-2022 End: 12-23-[address] Yonatan Thompson Work Phone: [facility] Work Phone: Start: 12-23-2022 End: 12-23-[address] Yonatan Thompson Work Phone: [facility] Start: 12-20-2022 End: 12-20-[address] Yonatan Thompson Work Phone: [facility] Start: 11-22-2022 End: 11-22-[address] Yonatan Thompson Work Phone: [facility] Start: 10-25-2022 End: 10-25-[address] Yonatan Thompson Work Phone: [facility] Start: 10-15-2022 Non-patient / Non-visit Dr. Yonatan Thompson Work Phone: [facility] Start: 10-15-2022 End: 10-15-[address] Yonatan hTompson Work Phone: [facility] Work Phone: Start: 10-15-2022 End: 10-15-[address] Yonatan Thompson Work Phone: [facility] Start: 09-27-2022 End: 09-27-[address] Yonatan Thompson Work Phone: [facility] Start: 09-20-[address] Yonatan Thompson Work Phone: [facility] Start: 09-16-2022 End: 09-16-[address] Yonatan Thompson Work Phone: [facility] Work Phone: Start: 09-16-2022 End: 09-16-[address] Yonatan Thompson Work Phone: [facility] Start: 08-31-2022 End: 08-31-[address] Yonatan Thompson Work Phone: [facility] Start: 07-20-2022 End: 07-20-[address] Yonatan Thompson Work Phone: [facility] Start: 06-17-2022 End: 06-17-[address] Yonatan Thompson Work Phone: [facility] Start: 06-14-2022 End: 06-14-[address] Yonatan Thompson Work Phone: [facility] Start: 05-31-2022 End: 05-31-[address] Yonatan Thompson Work Phone: [facility] Start: 05-19-2022 End: 05-19-[address] Yonatan Thompson Work Phone: [facility] Start: 04-14-2022 End: 04-14-[address] Yonatan Thompson Work Phone: [facility] Start: 04-09-2022 End: 04-09-2022 Patient encounter procedure Marium Elam MD Work Phone: Ophthalmology Comment on above: CME (cystoid macular edema), right (Primary Dx); Ntmdocv-qheswqs-fvcaedch syndrome of right eye; Pseudophakia Start: 03-18-2022 End: 03-18-[address] Yonatan Thompson Work Phone: [facility] Start: 03-16-2022 End: 03-16-[address] Yonatan Thompson Work Phone: [facility] Start: 02-16-2022 End: 02-16-[address] Yonatan Thompson Work Phone: [facility] Procedures Date Procedure Procedure Detail Performing [...] ankle complete minimum 3 views Scooby Henson APRN.TAX ACCOUNTING MANAGER Work Phone: Start: 06-17-2022 X-ray of cervical [...] DTaP,Tdap,Td Vaccine (3 - Td or Tdap) [facility] Start: 05-24-2025 Screening mammography SCRN DIRK M (CAD)W/REJI BILAT [facility] Start: 05-22-2025 Procedure [facility] Start: 07-15-2024 Covid-19 Vaccine ( season) Covid-19 Vaccine ( season) [facility] Start: 07-15-2024 Influenza vaccination Influenza Vacc ine (#1) [facility] Start: 11-14-2023 Advance Directive Discussion Advance Directive Discussion [facility] Start: 09-16-2023 Pneumococcal Vaccine : 65+ (2 of 2 - PCV) Pneumococcal Vaccine: 65+ (2 of 2 - PCV) [facility] Start: 07-15-2023 Influenza vaccination INFLUENZA (#1) [facility] Start: 04-24-2023 End: 10-01-2023 OCT MACULA CIRRUS OU (BOTH EYES) OCT MACULA CIRRUS OU (BOTH EYES) OPHT Imaging Routine CME (cystoid macular edema), right Inzxgjw-zquydik-btwgnew a syndrome of right eye Pseudophakia Expected: 04/24/2023, Expires: 10/01/2023 [facility] Work Phone: Comment on above: Expected: 04/24/2023 , Expires: 10/01/2023 Start: 11-14-2022 ADVANCE DIRECTIVE DISCUSSION ADVANCE DIRECTIVE DISCUSSION [facility] Start: 11-14-2022 DEPRESSION ASSESSMENT DEPRESSION ASS ESSMENT [facility] Start: 2022 BONE DENSITY BONE DENSITY [facility] Start: 2022 PNEUMOCOCCAL: 65+ (1 - PCV) PNEUMOCOCCAL: 65+ (1 - PCV) [facility] Start: 2022 Screening for osteoporosis Bone Density Screening [facility] Start: 05-13-2022 COVID-19 VACCINE (6 - Booster for Moderna series) COVID-19 VACCINE (6 - Booster for Moderna series) [facility] Start: 08-01-2017 End: 08-01-2017 Appointment Appointment [facility] Work Phone: Start: 2017 RSV Vaccine (1 - 1-d ose 60+ series) RSV Vaccine (1 - 1-dose 60+ series) [facility] Start: 04-28-2017 End: 04-28-2017 Appointment Appointment [facility] Work Phone: Start: 02-09-2017 End: 02-10-2017 Follow up Appt 1x/week Follow up Appt 1x/week [facility] Work Phone: Start: 02-09-2017 End: 02-10-2017 Follow up Appt 1x/week Follow up Appt 1x/week [facility] Work Phone: Start: 01-31-2017 End: 01-31-2017 Follow up Appt 2x/week Follow up Appt 2x/week [facility] Work Phone: Start: 01-31-2017 End: 01-31-2017 Follow up Appt 2x/week Follow up Appt 2x/week [facility] Work Phone: Start: 01-24-2017 End: 01-24-2017 Follow up Appt 2x/week Follow up Appt 2x/week [facility] Work Phone: Start: 01-24-2017 End: 01-24-2017 Follow up Appt 2x/week Follow up Appt 2x/week [facility] Work Phone: Start: 01-17-2017 End: 01-17-2017 Follow up Appt 2x/week Follow up Appt 2x/week [facility] Work Phone: Start: 01-17-2017 End: 01-17-2017 [...] up Appt 3x/week Follow up Appt 3x/week [facility] Work Phone: Start: 12-13-2016 End: 12-15-2016 Follow up Appt 3x/week Follow up Appt 3x/week [facility] Work Phone: Start: 12-13-2016 End: 12-15-2016 Radex spine cervical 2 or 3 views X-Ray, Spine, Cervical 2-3 views [facility] Work Phone: Start: 12-13-2016 End: 12-15-2016 Follow up Appt 3x/week Follow up Appt 3x/week [facility] Work Phone: Start: 12-13-2016 End: 12-15-2016 X-ray exam of neck spine X-Ray, Spine, Cervical 2-3 views [facility] Work Phone: Start: 01-03-2009 PAP TESTING PAP TESTING [facility] Start: 2007 SHINGRIX VACCINE (1 of 2) SHINGRIX VACCINE (1 of 2) [facility] Start: 2002 COLOGUARD (FIT-DNA) COLOGUARD (FIT-D NA) [facility] Start: 2002 Colonoscopy COLONOSCOPY [facility] Start: 2002 COLORECTAL CANCER SCREENING COLORECTAL CANCER SCREENING [facility] Start: [address] COLONOGRAPHY [facility] Start: 2002 DIABETES SCREEN DIABETES SCREEN [facility] Start: 2002 Diabetes Screening Diabetes Screenin g [facility] Start: 2002 FECAL OCCULT BLOOD FECAL OCCULT BLOO D [facility] Start: 2002 Lipid panel Lipid Screening [facility] Start: 2002 LIPID SCREEN LIPID SCREEN [facility] Start: 2002 Screening for malign ant neoplasm of colon [facility] Start: 2002 SIGMOIDOSCOPY SIGMOIDOSCOPY [facility] Start: 1997 Mammography MAMMOGRAM [facility] Start: 1997 Screening for malign ant neoplasm of breast Mammogram Screening [facility] Start: 1987 HPV TESTING HPV TESTING [facility] Start: 1976 Urine microalbumin profile DTAP,TDAP,TD (1 - Tdap) [facility] Start: 1975 Anxiety Screening Anxiety Screening [facility] Start: 1975 Depression Screening Depression Scre ening [facility] Start: 1975 HEPATITIS C SCREENING HEPATITIS C [facility] Start: 1975 Hepatitis C screening Hepatitis C [facility] Start: 1975 HIV SCREENING HIV SCREENING [facility] Start: 1969 Adult depression screening assessment DEPRESSION SCREENING [facility] Cortisol Free [Mass/volume] in 24 hour Urine [facility] Cortisol Free [Mass/volume] in Urine [facility] End: 2024 XR ANKLE GENERAL 3V AP/LAT/OBL RIGHT XR ANKLE GENERAL 3V AP/LAT/OBL RIGHT Radiology STAT Foot pain, right Acute right ankle pain 1 Occurrences starting 05/17/2023 until 2024 [facility] Work Phone: Comment on above: 1 Occurrences starti ng 05/17/2023 until 2024 End: 2024 XR FOOT GENERAL 3V AP/LAT/OBL RIGHT XR FOOT GENERAL 3V AP/LAT/OBL RIGHT Radiology STAT Foot pain, right Acute right ankle pain 1 Occurrences starting 05/17/2023 until 2024 [facility] Work Phone: Comment on above: 1 Occurrences starti ng 05/17/2023 until 2024 Immunizations Immunization Date Immunization Notes Care Provider [facility] 09-13-2022 influenza virus vaccine, unspecified formulation Xr Amelia Work Phone: [facility] 08-19-2012 influenza virus vaccine, unspecified formulation Marium Fishman MD Work Phone: [facility] 08-16-2009 influenza virus vaccine, unspecified formulation Marium Fishman MD Work Phone: [facility] Work Phone: 09-13-2006 influenza virus vaccine, unspecified formulation Marium Fishman MD Work Phone: [facility] Work Phone: Payers Date Payer Category Payer Self-pay [id number] 2022 Medicare [id number] 2022 Medicare MMO MEDICARE MMO MEDADVANTAGE HMO [id number] 2022-Present [phone] [address] [place] [address] HMO [id number] 2020 Unknown [employer] [id number] 2020-Present [phone] [address] [place] [address] O [id number] 1957 Unknown [id number] [id number] 7 Unknown [id number] Unknown [facility] P[facility]AN [id number] Unknown [id number] Unknown [id number] [id number] 2 Unknown [id number] 2.16.840.1.615586.3.579.2.46 2 Unknown [id number] 2.16.840.1.286958.3.579.2.46 2 Unknown [id number] 2.16.840.1.619142.3.579.2.46 2 Unknown [id number] 2.16.840.1.289866.3.579.2.46 2 Unknown [id number] 2.16.840.1.612905.3.579.2.46 2 Unknown [id number] 2.16.840.1.184754.3.579.2.46 2 Unknown [id number] 2.16.840.1.240292.3.579.2.46 2 Unknown [id number] 2.16.840.1.553206.3.579.2.46 2 Unknown [id number] 2.16.840.1.053885.3.579.2.46 2 Unknown [id number] 2.16.840.1.302093.3.579.2.46 2 Unknown [id number] 2.16.840.1.264014.3.579.2.46 2 Unknown [id number] 2.16.840.1.108316.3.579.2.46 2 Unknown [id number] 2.16.840.1.679544.3.579.2.46 2 Unknown [id number] 2.16.840.1.914546.3.579.2.46 2 Unknown [id number] 2.16.840.1.989338.3.579.2.46 2 Unknown [id number] 2.16.840.1.500745.3.579.2.46 2 Unknown [id number] 2.16.840.1.564757.3.579.2.46 2 Unknown [id number] 2.16.840.1.645785.3.579.2.46 2 Unknown [id number] 2.16.840.1.354886.3.579.2.46 2 Unknown [id number] 2.16.840.1.268943.3.579.2.46 2 Unknown [id number] 2.16.840.1.572883.3.579.2.46 2 Social History Date Type Detail Facility Start: 05-17-2023 End: 02-11-2025 Tobacco smoking status NHIS Ex-smoker [facility] Work Phone: End: 08-12-1987 History of tobacco use Current smoker [facility] Start: 04-09-2022 End: 05-17-2023 Alcohol intake Current non-drinker of alcohol (finding) [facility] Start: 1955 Sex Assigned At Not on file [facility] Start: 03-30-2022 End: 04-09-2022 Exposure to SARS-CoV-2 (event) Not sure [facility] Start: 05-20-2022 End: 12-19-2023 Tobacco smoking status NYIS Unknown if ever smoked [facility] Start: 1955 Sex Assigned At Female [facility] End: 08-12-1987 History of tobacco use Cigarette Smoker [facility] Start: 05-17-2023 Tobacco use and exposure Smokeless tobacco non-user [facility] Start: 12-10-2022 End: 05-17-2023 History of Social function [facility] Start: 12-10-2022 End: 05-17-2023 Tobacco use panel [facility] National Score (1-100), lower number is lower risk 68 [facility] Medical Equipment Procedure Code Equipment Code Equipment Origin al Text Equipment Identifier Dates Lens Acrysof 6mm +21.5 Diopter 10 D Biconvex Blue Acrylic 13mm Iol - [id number] Start: 04-27-2021 Comment on above: Description: [...] disc disease, cervical chronic May 06 12:54pm [facility] Work Phone: 1(986) 795-748202-27-2025 Evaluation note* Diagnosis Onset Date Resolution Status [...] and somatic dysfunction of lumbar region acute [facility] 2024 1:38pm Segmental and somatic dysfunction of pelvic region acute [facility] 2024 1:38pm Segmental and somatic dysfunction of thoracic region acute [facility] 2024 1:38pm Degenerative disc disease, cervical chronic February 11, 2025 1:38pm Disorder of intervertebral d isc at C5-C6 level with radiculopathy chronic February 11, 2025 1:38pm Segmental and somatic dysfunction of cervical region acute A pril 2024 1:05pm Segmental and somatic dysfunction of lumbar region acute Apr il 2024 1:05pm Segmental and somatic dysfunction of pelvic region acute Apr mi 2024 1:05pm Segmental and somatic dysfunction of thoracic region [facility] 20[facility] 1:05pm Degenerative disc disease, cervical chronic March 11, 2025 1:05pm Disorder of intervertebral d isc at C5-C6 level with radiculopathy chronic March 11, 2025 1:05pm [facility] Work Phone: 1(277) 840-862702-27-2025 Evaluation note* Diagnosis Onset Date Resolution Status Admit Date Cervical pain acute January 102024 11:51am Segmental and somatic dysfunction of cervical region acute F [facility] 2024 11:51am Segmental and somatic dysfunction of lumbar region acute Feb [facility] 2024 11:51am Segmental and somatic dysfunction of pelvic region acute Feb [facility] 2024 11:51am Segmental and somatic dysfunction of thoracic region acute F [facility] 2024 11:51am Disorder of intervertebral d isc at C5-C6 level with radiculopathy chronic January 10, 025 11:51am Cervical pain acute February 11, 2025 1:38pm Segmental and somatic dysfunction of cervical region acute [facility] 2024 1:38pm Segmental and somatic dysfunction of lumbar region acute [facility] 2024 1:38pm Segmental and somatic dysfunction of pelvic region acute [facility] 2024 1:38pm Segmental and somatic dysfunction of thoracic region acute [facility] 2024 1:38pm Degenerative disc disease, cervical [...] radiculopathy chronic April 09, 2025 1 :42pm [facility] Work Phone: 1(298) 421-439002-27-2025 Evaluation note* Diagnosis Onset Date Resolution Status [...] and somatic dysfunction of pelvic region acute [facility] 2024 1:38pm Segmental and somatic dysfunction of [...] disease, cervical chronic May 06, 2025 12:54pm [facility] Work Phone: 1(225) 743-302207-06-2023 NotePatient Outreach ([facility]) RACHELLE CHAMPION ([id number]) 1955 F Date Time Provider Department 05/19/23 [...] Care Gap or Scheduling/Wellness visits Payer: Payor: [facility] / Plan: TeamPatentO MEDADVANTAGE HMO / Product Type: HMO / [...] Date Reviewed: 05/17/2023 Reviewed by: Scooby Henson APRN.TAX ACCOUNTING MANAGER - Fully Assessed Prescriptions as of 05/19/2023 - Zewkd-2-WGZ-EPA-Fish Oil 300-1,000 mg cap Take by mouth once daily. - ergocalciferol, vitamin D2, (VITAMIN D2 ORAL) Take by mouth once daily. - COQ10, LIPOSOMAL UBIQUINOL, ORAL Take by mouth once daily. - glucosamine/msm/csa/amelia/xix516 (AVLTEMYIHR-LVCAG-ZLJ-AMELIA-115HC ORAL) Take by mouth once daily. - [...] 07/16/2010 Encounter Status:Closed by CHERYL HENLEY on 05/19/23[facility] NoteHNO ID: [id number] Author: Cheryl Henley Service: ? Author Type: [...] Payer: Payor: MMO MEDICARE / Plan: MMO MEDADA Bit Lucky HMO / Product Type: HMO / Care [...] Signature: Cheryl Henley May 19, 2023 10:00 [facility]07-06-2023 History of Present illness Narrative* Cheryl Jandylon [...] visits Payer: Payor: MMO MEDICARE / Plan: TeamPatentO MEDADA Bit Lucky HMO / Product Type: HMO / Care [...] 19, 2023 10:00 AM documented in [facility] Miscellaneous Notes* Telephone Encounter - Amanda Fay [...] podiatry if not improving. documented in this encounterHol[facility]-2023 NoteHNO ID: [id number] Author: RT Aureliano(Emeli) Service: Nuclear Medicine Author [...] BY: RT Aureliano(R) May 18, 2023 8:47 [facility]07-05-2023 History of Present illness Narrative* Sushma Del [...] 18, 2023 8:47 AM documented in this encounterHol[facility]-2023 NoteHNO ID: [id number] Author: Scooby Henson APRN.TAX ACCOUNTING MANAGER Service: ? Author Type: Nurse Practitioner Type: [...] Date Allergic rhinitis Detached retina, right Glaucoma Ftrjhvv-mefhssq-kpmpmqkf syndrome of right eye PAST SURGICAL HISTORY Procedure Laterality Date ARTHROSCOPY KNEE; W/ FIXATION bone spur left, torn meniscus on right EXCHANGE OF INTRAOCULAR LENS S/p IOL Exchange/PPV OD:04/27/2021 PAST SURGICAL HISTORY OF LASIK both eyes. VAGINAL HYSTERECTOMY UTERUS 250 GM/< Hysterectomy, vaginal VITRECTOMY,MECHANICAL S/p IOL Exchange/PPV OD:04/27/2021 ALLERGIES Adhesive, Penicillins, Seasonal Allergies, and Xarelto [Rivaroxaban] MEDICATIONS Fjaar-1-JVJ-EPA-Fish Oil 300-1,000 mg cap Take by mouth once daily. ergocalciferol, vitamin D2, (VITAMIN D2 ORAL) Take by mouth once daily. COQ10, LIPOSOMAL UBIQUINOL, ORAL Take by mouth once daily. glucosamine/msm/csa/amelia/hga155 (QYSMDSVKHQ-EPXDA-EWP-AMELIA-115HC ORAL) Take by mouth once daily. prednisoLONE [...] tenderness or bony tende (more content not included)...[facility] History of Present illness Narrative* Scooby Henson APRN.[facility] - 05/17/2023 8:26 AM EDT Subjective HPI [...] Date Allergic rhinitis Detached retina, right Glaucoma Hbblrft-yrshzah-wemxkqys syndrome of right eye PAST SURGICAL HISTORY Procedure Laterality Date ARTHROSCOPY KNEE; W/ FIXATION bone spur left, torn meniscus on right EXCHANGE OF INTRAOCULAR LENS S/p IOL Exchange/PPV OD:04/27/2021 PAST SURGICAL HISTORY OF LASIK both eyes. VAGINAL HYSTERECTOMY UTERUS 250 GM/< Hysterectomy, vaginal VITRECTOMY,MECHANICAL S/p IOL Exchange/PPV OD:04/27/2021 ALLERGIES Adhesive, Penicillins, Seasonal Allergies, and Xarelto [Rivaroxaban] MEDICATIONS Kdfop-3-FCY-EPA-Fish Oil 300-1,000 mg cap Take by mouth once daily. ergocalciferol, vitamin D2, (VITAMIN D2 ORAL) Take by mouth once daily. COQ10, LIPOSOMAL UBIQUINOL, ORAL Take by mouth once daily. glucosamine/msm/csa/aemlia/fwj719 (UPAWDIYUUD-AGELX-PSU-AMELIA-115HC ORAL) Take by mouth once daily. prednisoLONE [...] of care. This note was generated using [employer] software. It may contain errors in wording, punctuation, or spelling. Scooby Henson APRN.RAIN documented in this encounterHol[facility] [place]-27-2022 Instructions* Patient Instructions* Marium Elam V, MD - 04/09/2022 4:14 PM EDT Please follow-up with Dr. Elam for your next eye exam if you have been advised to do so. If you notice any sudden changes to your vision, eye pain, eye redness or irritation, please do nothesitate to call our office to schedule an earlier appointment. To schedule during office hours, call [phone] After office hours you may call [phone] and ask to speak with the communication engineer ob/gyn doctor. documented in this encounterHol[facility] [place]22 History of Present illness Narrative* Marium Elam [...] have AMD Gtts: AT ASSESSMENT AND PLAN: Kadhbht-xclrubym-znmuryc (UGH) syndrome, right eye - history of [...] with Dr. Clarence Wayne (retina specialist in [place]) - unclear what indication was for second [...] to RD/CEIOL (see above) - Unsure which ob/gyn doctor but pt thinks she could find out [...] components. Marium Elam MD documented in this encounterHolzer [facility] – JacksonEvaluation note* Diagnosis CME (cystoid macular edema), right- Primary Smizexm-zftinby-peohrxvw syndrome of right eye Pseudophakia Lens replaced by other means documented [facility]* Diagnosis Onset Date Resolution [...] level with radiculopathy chronic Back pain noneactive [facility] Work Phone: Evaluation note* Diagnosis Onset [...] level with radiculopathy chronic Back pain noneactive [facility] Work Phone: Evaluation note* Diagnosis Onset [...] level with radiculopathy chronic Back pain noneactive [facility] Work Phone: Evaluation note* Diagnosis Onset [...] level with radiculopathy chronic Back pain noneactive [facility] Work Phone: Evaluation note* Diagnosis Foot pain, right- Primary Pain in limb Acute right ankle pain documented [facility]* Diagnosis Acute right ankle pain- Primary [facility]* Diagnosis Onset Date Resolution [...] radiculopathy chronic Back pain noneactive Hemorrhoids noneactive [facility] Work Phone: Evaluation note* Diagnosis Onset [...] level with radiculopathy chronic Back pain noneactive [facility] Work Phone: Evaluation note* Diagnosis Onset [...] level with radiculopathy chronic Back pain noneactive [facility] Work Phone: Evaluation note* Diagnosis Foot pain, right Pain in limb Acute right ankle pain documented in this encounter [facility] for referral (narrative)* Diagnostic Procedure Only (Urgent) - Pending Review Specialty Diagnoses / Procedures Referred By Lukasz t Referred To Contact XR IMAGING Diagnoses Foot pain, right Acute right ankle pain Procedures XR ANKLE GENERAL 3V AP/LAT/OBL RIGHT RADEX ANKLE COMPLETE MINIMUM 3 VIEWS Scooby Henson APRN.TAX ACCOUNTING MANAGER [address] [place] [address] Xr Imaging Referral ID Status Reason Start Date Expiration Date Visits Requested Visits Authorized [id number] Pending Review Auto-Generat ed Referral 05/17/2023 2024 1 1 * Diagnostic Procedure Only (Urgent) - Pending Review Specialty Diagnoses / Procedures Referred By Contac t Referred To Contact XR IMAGING Diagnoses Foot pain, right Acute right ankle pain Procedures XR FOOT GENERAL 3V AP/LAT/OBL RIGHT RADEX FOOT COMPLETE MINIMUM 3 VIEWS Scooby Henson APRN.TAX ACCOUNTING MANAGER [address] [place] [address] Xr Imaging Referral ID Status Reason Start Date Expiration Date Visits Requested Visits Authorized [id number] Pending Review Auto-Generat ed Referral 05/17/2023 2024 1 1 [facility] for referral (narrative)* Diagnostic Procedure Only (Urgent) - Closed Specialty Diagnoses / Procedures Referred By Contac t Referred To Contact XR IMAGING Diagnoses Foot pain, right Acute right ankle pain Procedures XR ANKLE GENERAL 3V AP/LAT/OBL RIGHT RADEX ANKLE COMPLETE MINIMUM 3 VIEWS Scooby Henson APRN.TAX ACCOUNTING MANAGER [address] [place] [place] [address] [place] [address] Referral ID Status Reason Start Date Expiration Date V isits Requested Visits Authorized [id number] Closed Auto-Generate d Referral 05/17/2023 2024 1 1 * Diagnostic Procedure Only (Urgent) - Closed Specialty Diagnoses / Procedures Referred By Contac t Referred To Contact XR IMAGING Diagnoses Foot pain, right Acute right ankle pain Procedures XR FOOT GENERAL 3V AP/LAT/OBL RIGHT RADEX FOOT COMPLETE MINIMUM 3 VIEWS Scooby Henson APRN.TAX ACCOUNTING MANAGER [address] [place] [place] [address] [place] [address] Referral ID Status Reason Start Date Expiration Date V isits Requested Visits Authorized [id number] Closed Auto-Generate d Referral 05/17/2023 2024 1 1 [facility] (narrative)No reason for referral information availableWGreene Memorial [facility] Work Phone: Reason for visit Narrative* Diagnostic Procedure Only (Urgent) - Closed Specialty Diagnoses / Procedures Referred By Lukasz t Referred To Contact XR IMAGING Diagnoses Foot pain, right Acute right ankle pain Procedures XR ANKLE GENERAL 3V AP/LAT/OBL RIGHT RADEX ANKLE COMPLETE MINIMUM 3 VIEWS Scooby Henson APRN.TAX ACCOUNTING MANAGER [address] [place] [place] [address] [place] [address] Referral ID Status Reason Start Date Expiration Date V isits Requested Visits Authorized [id number] Closed Auto-Generate d Referral 05/17/2023 2024 1 1 [facility] Medications Administered Section Active Administered Medications - [...] Documents on File Type Date Recorded 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 Advance Directive(s) 04/20/2021 12:16 PM [...] pain Procedures CONSULT TO PODIATRY OFFICE/OUTPATIENT [facility] 60-74 MINUTES Asher Garcia PA-C [address] [place] [address] Referral ID Status Reason Start Date Expiration Date Visits Requested Visits Authorized [id number] Authorized PCP Requested Referral 05/18/2023 05/17/2024 1 [...] or prosecute any alcohol or drug abuse patient.[facility] Jackson[facility] the event this information is protected by the Federal Confidentiality of Alcohol and Drug Abuse Patient Records regulations: The Federal rules restrict any use of the information to criminally investigate or prosecute any alcohol or drug abuse patient.[facility] Jackson[facility] the event this information is protected by the Federal Confidentiality of Alcohol and Drug Abuse Patient Records regulations: The Federal rules restrict any use of the information to criminally investigate or prosecute any alcohol or drug abuse patient.[facility] Jackson[facility] the event this information is protected by the Federal Confidentiality of Alcohol and Drug Abuse Patient Records regulations: The Federal rules restrict any use of the information to criminally investigate or prosecute any alcohol or drug abuse patient.[facility] Jackson[facility] the event this information is protected by the Federal Confidentiality of Alcohol and Drug Abuse Patient Records regulations: The Federal rules restrict any use of the information to criminally investigate or prosecute any alcohol or drug abuse patient.[facility] Reason for Visit (unrecogniz ed section and content) Reason Comments Cystoid Macular Edema Follow Up Specialty Diagnoses / Procedures Referred By Lukasz t Referred To Contact OPHTHALMOLOGY Diagnoses Return in 2-3 months Procedures Est adult Marium Elam V, MD [address] [place] [address] Opht [facility] [address] [place] [address] Referral ID Status Reason Start Date Expiration Date Visits Requested Visits Authorized [id number] Authorized Financial Clearance Required - OON Payor Patient Cleared INN/SMCP Payor Auth Obtained 1 09/23/2022 4 4 Reason Comments right foot pain Right foot pain x 1 week-cannot recall an injury Reason Comments Results Care Teams (unrecognized sec tion and content) Parking Lot Supervisor Relationship Specialty Start Date End Date Yonatan Thompson MD [address] [facility] [address] [place] [address] PCP - General Family Practice 04/15/21 Scooby Quiñonez [address] [place], [place] [id number] Physician Ophthalmology 02/24/21 Team Status: Active Member [...] Knowles MD Attending Provider, Referring Provider Active Parking Lot Supervisor Relationship Specialty Start Date End Date Yonatan Thompson MD [address] [place] [address] [address] [place] [address] PCP - General Family Medicine 04/15/21 Scooby Quiñonez [address] [place] [address] Physician Ophthalmology 02/24/21 Parking Lot Supervisor Relationship Specialty Start Date End Date Yonatan Thompson MD [address] [place] [address] [address] [place] [address] PCP - General Family Medicine 04/15/21 Scooby Quiñonez [address] [place] [address] Physician Ophthalmology 02/24/21 Parking Lot Supervisor Relationship Specialty Start Date End Date Yonatan Thompson MD [address] [place] [address] [address] [place] [address] PCP - General Family Medicine 04/15/21 Scooby Quiñonez [address] [place] [address] Physician Ophthalmology 02/24/21 Team Status: Inactive Member [...] MD Primary Care Provider, Attending Provider Active Parking Lot Supervisor Relationship Specialty Start Date End Date Yonatan Thompson MD [address] [facility] [address] [place], [place] [id number] PCP - General Family Medicine 04/15/21 Scooby Quiñonez MD [address] [place], [place] [id number] Physician Ophthalmology 02/24/21 Team Status: Active Member [...] 2025 End: January 10, 2025 Dr. Valentina Flroes DC Attending Provider Active S tart: January [...] Status: Inactive Member Role/Relationship Status Dates Dr. Yonaatn Thompson MD Primary Care Provider Active Start: [...] section and content) DATE CREATED AUTHOR 05/20/2023 [facility] DATE CREATED AUTHOR AUTHOR'S ORGANIZ ATION 05/11/2025 [facility] DATE CREATED AUTHOR AUTHOR'S ORGANIZ ATION 05/24/2025 [facility] FOR RECORDS PERTAINING TO PATIENTS WHO ARE [...] BE BASED ON THE PRIMARY CLINICAL RECORDS. [facility] [employer] [facility]. provides no warranty or guarantee of the accuracy or completeness of information in this document.
--- NOTE | 2025-05-29 14:07 | NEURO ---
NCS and/or EMG Patient Report Ordering Doctor: Yonatan Courtney DATE OF SERVICE: 05/29/25 Rachelle presents with complaints of tingling in both feet with occasional sharp pains. Electrodiagnostic findings: Left peroneal motor nerve demonstrates normal distal latency, amplitude and conduction velocity. Right peroneal motor response within normal limits. Decreased left tibial motor conduction velocity. Normal right tibial motor response. Borderline prolonged right sural latency. H?reflex bilaterally. Prolonged right tibial F?wave. Needle EMG testing was performed the lower limbs. All muscles tested showed no evidence of denervation with normal reaction potentials. Electrodiagnostic impression: This is an abnormal study in the lower limbs 1. 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 2. No electrodiagnostic evidence is noted for lumbosacral radiculopathy Multi Select Codes Neurology Neurology Interp Codes: 73012-39 Musc test done w/n test comp (interp) (2) and 57590-53 Nrv cndj test 9-10 studies (interp)
--- NOTE | 2025-05-29 14:07 | NEURO ---
NCS and/or EMG Patient Report Ordering Doctor: Yonatan Courtney DATE OF SERVICE: 05/29/25 Rachelle presents with complaints of tingling in both feet with occasional sharp pains. Electrodiagnostic findings: Left peroneal motor nerve demonstrates normal distal latency, amplitude and conduction velocity. Right peroneal motor response within normal limits. Decreased left tibial motor conduction velocity. Normal right tibial motor response. Borderline prolonged right sural latency. H?reflex bilaterally. Prolonged right tibial F?wave. Needle EMG testing was performed the lower limbs. All muscles tested showed no evidence of denervation with normal reaction potentials. Electrodiagnostic impression: This is an abnormal study in the lower limbs 1. 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 2. No electrodiagnostic evidence is noted for lumbosacral radiculopathy Multi Select Codes Neurology Neurology Interp Codes: 52942-79 Musc test done w/n test comp (interp) (2) and 50045-51 Nrv cndj test 9-10 studies (interp)
== END | disposition home or self-care (01) ==
PROVIDERS: PCP Family Medicine; Referring Provider Family Medicine; Visit Provider Family Medicine
DX: R20.0 Anesthesia of skin (principal); E78.5 Hyperlipidemia, unspecified; R61 Generalized hyperhidrosis
CPT/HCPCS: 95886; 95911

== ENCOUNTER → 2025-05-30 | Outpatient (CLI) | payer MEDICARE, SELFPAY ==
[2025-05-30 09:10] LABS: CORTISOL AM 0.74 ug/dL (6.02-18.40)
== END | disposition home or self-care (01) ==
LOC: LAB 07:41
PROVIDERS: PCP Family Medicine; Referring Provider Internal Medicine Endocrinology, Diabetes & Metabolism; Visit Provider Internal Medicine Endocrinology, Diabetes & Metabolism
DX: E27.9 Disorder of adrenal gland, unspecified (principal)
CPT/HCPCS: 36415; 82533

== ENCOUNTER → 2025-06-27 | Outpatient (CLI) | payer MEDICARE, SELFPAY ==
--- NOTE | 2025-06-27 08:24 | US_ITS ---
PROCEDURE: ABDOMEN LIMITED 06/27/2025 REASON FOR EXAM: RUQ PAIN COMPARISON: None FINDINGS: Liver: Diffusely echogenic suggesting fatty infiltration. The liver measures 16.6 cm. Gallbladder: No stones sludge wall thickening or tenderness. Common bile duct: Normal measuring 4 mm. . Pancreas: Normal Other: Visualized portions of the right kidney are unremarkable. No right upper quadrant ascites. US/Abdomen Limited IMPRESSION: Fatty infiltration of the liver. Reading Location: [place] [address]
== END | disposition home or self-care (01) ==
PROVIDERS: PCP Family Medicine; Referring Provider Family Medicine; Visit Provider Family Medicine
DX: R10.11 Right upper quadrant pain (principal)
CPT/HCPCS: 76705

== ENCOUNTER → 2025-06-28 | Outpatient (CLI) | payer MEDICARE, SELFPAY ==
[2025-06-28 12:38] LABS: Hematocrit 44.9 % (37-47); Hemoglobin 14.2 g/dL (12.0-15.0); Immature Granulocytes Count 0.020 X10^3/uL (0.0-0.0); Mean Corp Hgb Conc 31.6 g/dL (32-36); Mean Corpuscular Volume 96.4 fL (81-99); Mean Platelet Vol. 10.2 fl (6.2-12.0); NRBC Flagged by Analyzer 0 % (0-5); Platelet Count 272 K/mm3 (150-450); RBC Distribution Width CV 13.4 % (11.6-14.6); RBC Distribution Width SD 47.8 fl (35.1-43.9); Red Blood Count 4.66 M/mm3 (4.2-5.4); White Blood Count 5.5 K/mm3 (4.4-11.0)
[2025-06-28 13:32] LABS: AST(SGOT) 20 U/L (<=31); Alanine Aminotransfer ALT/SGPT 21 U/L (<=34); Albumin, Serum 4.3 g/dL (3.4-4.8); Alkaline Phosphatase 70 U/L (35-104); Anion Gap 12 (5-15); BUN 14 mg/dL (4-19); BUN/Creat Ratio 16.8 RATIO (10-20); Calcium,Total 9.4 mg/dL (7.6-11.0); Carbon Dioxide 25.9 mmol/L (21.0-32.0); Chloride 102 mmol/L (98-108); Cholesterol 225 mg/dL (<=200); Free T3 2.2 pg/mL (2.18-3.98); Globulin 2.5 g/dL (2.2-4.2); Glucose 119 mg/dL (70-99); Low Density Lipoprotein Calc. 133 mg/dL; Potassium 4.3 mmol/L (3.3-5.1); Triglycerides 145 mg/dL; Very Low Density Lipoprotein 29 mg/dL (5-40); cholesterol:hdl ratio screen 3.59
== END | disposition home or self-care (01) ==
LOC: MFPLAB 10:51
PROVIDERS: PCP Family Medicine; Visit Provider Family Medicine
DX: E78.5 Hyperlipidemia, unspecified (principal); F32.A Depression, unspecified; E03.9 Hypothyroidism, unspecified
CPT/HCPCS: 36415; 80053; 80061; 84439; 84443; 84481; 85025

== ENCOUNTER → 2025-07-09 | Outpatient (CLI) | payer MEDICARE, SELFPAY ==
--- NOTE | 2025-07-09 12:37 | BD_ITS ---
PROCEDURE: DEXA BONE DENSITY STUDY 07/09/2025 REASON FOR EXAM: F, age 70 y/o . Postmenopausal. TECHNIQUE: DEXA BONE DENSITY STUDY COMPARISON: October 06, 2021. FINDINGS: BMD and T-SCORES Lumbar spine: 1.055 g/cm2, T-score -0.4 Levels: L1 through L4 Change from prior: Loss of 5.4%. Left femoral neck: 0.787 g/cm2, T-score -0.6 Femoral neck comparison data not recommended for monitoring change. Left total hip: 0.993 g/cm2, T-score 0.4 Change from prior: Loss of 2.8%. Right femoral neck: 0.792 g/cm2, T-score -0.5 Femoral neck comparison data not recommended for monitoring change. Right total hip: 0.938 g/cm2, T-score 0.0 Change from prior: Loss of 3.7%. The World Health Organization has defined the following categories based on bone density: Normal bone density: T-score equal to or greater than -1.0 Osteopenia: T-score between -1.0 and -2.5 Osteoporosis: T-score equal to or less than -2.5 FRAX (or Comparable) Fracture Risk Assessment: 10 Year Probability of Fracture: Major Osteoporotic Fracture: 7.5% Hip Fracture: 0.5% (Note: FRAX is not to be reported in setting of normal range bone density, osteoporosis on DEXA, known history of osteoporosis, prior osteoporotic hip or vertebral fracture, or for any patient undergoing pharmacological treatment for bone loss.) The National Osteoporosis Foundation (NOF) recommends pharmacological treatment for patients with a FRAX 10-year risk of 3% or higher for a hip fracture, or 20% or higher for a major osteoporotic fracture, to prevent osteoporosis and reduce fracture risk. The patient does not meet the pharmacological treatment recommendations for prevention of osteoporosis. BD/Dexa Bone Density Study IMPRESSION: NORMAL T-SCORES. Recommend follow-up as clinically warranted. Reading Location: [id number]
== END | disposition home or self-care (01) ==
LOC: OPBD 12:31
PROVIDERS: PCP Family Medicine; Referring Provider Family Medicine; Visit Provider Family Medicine
DX: Z00.00 Encounter for general adult medical examination without abnormal findings (principal); Z78.0 Asymptomatic menopausal state
CPT/HCPCS: 77080

== ENCOUNTER → 2025-07-26 | Outpatient (CLI) | payer MEDICARE, SELFPAY ==
--- NOTE | 2025-07-26 08:53 | NM_ITS ---
PROCEDURE: HEPATOBILLIARY IMG W/PHARM INT 07/26/2025 REASON FOR EXAM: RUQ PAIN TECHNIQUE: Procedure Code: [id number] Modality: NM Procedure: HEPATOBILLIARY IMG W/PHARM INT Intravenous Choletec with planar imaging of the abdomen. 1.9 mcg Kinevac intravenously approximately 60 minutes after the radiopharmaceutical with additional anterior imaging and a region of interest drawn around the gallbladder to calculate a time-activity curve. RADIOPHARMACEUTICAL: Mebrofenin DOSE 5.5mCi COMPARISON: Prior sonogram of the right upper quadrant dated June 28, 2025. FINDINGS: There is good uptake of the radiopharmaceutical by the liver. Normal gallbladder visualization with the gallbladder identified by 30 minutes. Gallbladder Ejection Fraction: 89 % (Normal is >35%) NM/Hepatobilliary Img w/Pharm Int IMPRESSION: Normal hepatobiliary scan. Normal gallbladder ejection fraction. Reading Location: [place]
== END | disposition home or self-care (01) ==
PROVIDERS: PCP Family Medicine; Referring Provider Family Medicine; Visit Provider Family Medicine
DX: R10.11 Right upper quadrant pain (principal)
CPT/HCPCS: 78227; A9537; J2805

== ENCOUNTER 2025-08-09 12:38 | Emergency (ER) | payer MEDICARE, SELFPAY ==
[2025-08-09 12:38] VITALS: BP 149/87; PULSE 79; RESP 16; TEMP 36.9; O2SAT 97
--- NOTE | 2025-08-09 13:40 | RAD_ITS ---
PROCEDURE: TIBIA FIBULA 2 VIEWS 08/09/2025 REASON FOR EXAM: PAIN TECHNIQUE: Procedure Code: RADTF Modality: DX Procedure: Three-view left tibia and fibula. Laterality: Left COMPARISON: None. RAD/Tibia & Fibula 2 Views IMPRESSION: Limited imaging of the left knee demonstrates at least mild degenerative change s. Limited imaging of the left ankle and hindfoot demonstrate moderately large inf erior calcaneal spurring. Normal contour of the Achilles tendon is seen on lateral imaging. No radiopaque foreign body is seen. No fracture or dislocation is evident. If clinical concern persists, short-term follow-up imaging may be obtained to r ule out a currently occult fracture. Reading Location: [id number]
[2025-08-09 19:34] VITALS: BP 152/81; PULSE 84; RESP 16; TEMP 37.4; O2SAT 97; BMI 33.8
[2025-08-09] MEDS: Ketorolac 30 MG/ML Syringe IM (20:06)
--- OUTSIDE RECORDS SUMMARY | 2025-08-09 20:06 | XMS RPT_ITS | CCD ---
Author Organization [facility] Care Team Providers Care Retail Business Manager Name Role Phone Dossi Valentina ZELAYA Unavailable Scooby Quiñonez Unavailable Yonatan Courtney MD Primary Care Provider [phone] Courtney, Dr. Tam Primary Care Provider Sherwin, Dr. Tam Referring Provider Dosmarcia, Dr. Montgomery Attending Provider [phone] Dr. Yonatan Courtney Primary Care Provider Sherwin, Dr. Tam Referring Provider Dosmarcia, Dr. Montgomery Attending Provider [phone] Dr. Abisai Hawk Attending Provider Dr. Montana Carlisle Attending Provider [phone] Yonatan Courtney Primary Care Provider Sherwin, Dr. Tam Referring Provider Dosmarcia, Dr. Montgomery Attending Provider [phone] Dr. Rajendra Lindsey Attending Provider Dr. Yonatan Courtney Primary Care Provider Sherwin, Dr. Tam Referring Provider Dosmarcia, Dr. Montgomery Attending Provider [phone] Dr. Rajendra Lindsey Referring Provider Sherwin, Dr. Tam Primary Care Provider Dr. Yonatan Courtney Referring Provider Sandra, Dr. Montgomery Attending Provider 1([facility]) 25 Scooby Quiñonez Unavailable Sherwin GARCIA, Yonatan Sainz Primary Care Provider SHERWIN, YONATAN Sainz Primary Care Unavailable SCOOBY HENSON Referring Unavailable SHERWIN, YONATAN Sainz Primary Care Unavailable Sherwin, Dr. Tam Primary Care Provider Dossi, Dr. Montgomery Attending Provider 1([facility])- 25 Dossi, Dr. Montgomery Referring Provider 1([facility]) 25 Orestes, Dr. Boyle Attending Provider Courtney, Dr. Tam Referring Provider [facility], Dr. Torres Attending Provider Courtney, Dr. Tam Primary Care Provider Dossi, Dr. Montgomery Attending Provider 1([facility]) 25 Dossi, Dr. Montgomery Referring Provider 1([facility]) 25 Courtney, Dr. Tam Primary Care Provider 1([facility])[phone] Dossi, Dr. Montgomery Attending Provider 1([facility]) 25 Dossi, Dr. Montgomery Referring Provider 1([facility]) 25 Courtney, Dr. Tam Referring Provider 1([facility])[phone] Olamide GARCIA, Scooby Her Unavailable Sherwin GARCIA, [...] Provider Dossi DC, Dr. Montgomery Referring Provider [phone] Wieterita DO, Dr. Grissom Attending Provider Alexsandra DO, Dr. Grissom Referring Provider Sherwin GARCIA, Dr. Tam Other Provider Jett GARCIA, Dr. Infante Attending Provider Dinh GARCIA, Altagracia Riddle Unavailable NONE, NONE Unavailable Unavailable Sherwin GARCIA, Yonatan R Unavailable [phone] Sherwin GARCIA, Dr. Tam Primary Care Provider Dossi DC, Dr. Montgomery Attending Provider [phone] Dossi DC, Dr. Montgomery Referring Provider [phone] Sherwin GARCIA, Dr. Tam Primary Care Provider Sherwin GARCIA, Dr. Tam Referring Provider Dossi DC, Dr. Montgomery Attending Provider Sherwin GARCIA, Dr. Tam Primary Care Provider Sherwin GARCIA, Dr. Tam Referring Provider Sherwin GARCIA, Dr. Tam Attending Provider [phone] Yonatan Courtney Referring Unavailable Dossi, Valentina Attending Unavailable Courtney, Yonatan Primary Care Unavailable Courtney, Yonatan Referring Unavailable Courtney, Yonatan Primary Care Unavailable Courtney, Yonatan Attending Unavailable Wietecha, Jaciel Attending Unavailable Wietecha, Jaciel Referring Unavailable Courtney, Yonatan Primary Care Unavailable Courtney, Yonatan Primary Care Unavailable Dossi, Valentina Attending Unavailable Courtney, Yonatan Referring Unavailable Courtney, Yonatan Referring Unavailable Courtney, Yonatan Primary Care Unavailable Dossi, Valentina Attending Unavailable Courtney, Yonatan Primary Care Unavailable Dossi, Valentina Referring Unavailable Dossi, Valentina Attending Unavailable Dossi, Valentina Referring Unavailable Dossi, Valentina Attending Unavailable Courtney, Yonatan Primary Care Unavailable Dossi, Valentina Attending Unavailable Courtney, Yonatan Referring Unavailable Courtney, Yonatan Primary Care Unavailable Courtney, Yonatan Primary Care Unavailable Wietecha, Jaciel Attending Unavailable Wietecha, Jaciel Referring Unavailable LauraGaston jonas Attending Unavailable Courtney, Yonatan Primary Care Unavailable Courtney, Yonatan Primary Care Unavailable Courtney, Yonatan Attending Unavailable Courtney, Yonatan Referring Unavailable Courtney, Yonatan Primary Care Unavailable Courtney, Yonatan Referring Unavailable Courtney, Yonatan Attending Unavailable Courtney, Yonatan Primary Care Unavailable Courtney, Yonatan Referring Unavailable Courtney, Yonatan Attending Unavailable Courtney, Yonatan Primary Care Unavailable Courtney, Yonatan Attending Unavailable Wietecha, Jaciel Attending Unavailable Wietecha, Jaciel Referring Unavailable Courtney, Yonatan Primary Care Unavailable Courtney, Yonatan Referring Unavailable Courtney, Yonatan Primary Care Unavailable Courtney, Yonatan Attending Unavailable Courtney, Yonatan Referring Unavailable Courtney, Yonatan Primary Care Unavailable Courtney, Yonatan Attending Unavailable Courtney, Yonatan Primary Care Unavailable Courtney, Yonatan Attending Unavailable Courtney, Yonatan Referring Unavailable Courtney, Yonatan Referring Unavailable Courtney, Yonatan Primary Care Unavailable Courtney, Yonatan Attending Unavailable Courtney, Yonatan Primary Care Unavailable Dossi, Valentina Referring Unavailable Dossi, Valentina Attending Unavailable Courtney, Yonatan Primary Care Unavailable Courtney, Yonatan Referring Unavailable Courtney, Yonatan Attending Unavailable Dossi, Valentina Attending Unavailable Courtney, Yonatan Referring Unavailable Courtney, Yonatan Primary Care Unavailable Dossi, Valentina Attending Unavailable Courtney, Yonatan Primary Care Unavailable Courtney, Yonatan Referring Unavailable Dossi, Valentina Referring Unavailable Dossi, Valentina Attending Unavailable Courtney, Yonatan Primary Care Unavailable Ahmad, Arelis Attending Unavailable Courtney, Yonatan Primary Care Unavailable Courtney, Yonatan Consulting Unavailable Courtney, Yonatan Referring Unavailable Dossi, Valentina Referring Unavailable Dossi, Valentina Attending Unavailable Courtney, Yonatan Primary Care Unavailable Dossi, Valentina Referring Unavailable Dossi, Valentina Attending Unavailable Courtney, Yonatan Primary Care Unavailable Dossi, Valentina Referring Unavailable Dossi, Valentina Attending Unavailable Courtney, Yonatan Primary Care Unavailable Allergies Allergy Classification Reported Allergen(s) Allergy Type Date of Onset Reaction(s) Facility (5 sources) penicillin v drug allergy 7 [facility] Work Phone: (6 sources) Adhesive agent; Translations: [ADHESIVE] Propensity to adverse reactions 9 [facility] (3 sources) Penicillins; Translations: [PENICILLINS] Propensity to adverse reactions 9 itching [facility] (6 sources) rivaroxaban; Translations: [RIVAROXABAN] Drug Allergy 1 Unknown [facility] (6 sources) Seasonal allergy; Translations: [SEASONAL ALLERGIES] Allergy to substance 2 Other: See Comments [facility] (20 sources) Penicillins Allergy to substance 2 itching [facility] Comment on above: Itching (4 sources) Penicillins Propensity to adverse reactions 9 [facility] (17 sources) Seasonal Allergies: Uncoded; Translations: [Seasonal Allergies: Uncoded] Allergy to substance 4 Other [facility] Comment on above: Sneezing (1 source) Penicillins Drug allergy (disorder) 5 [facility] Repository Medications Current Medications Medication Drug Class(es) Dates Sig (Normalized) Sig (Original) Antiarthritic Combination No.2 (Glucosamine-Chondro itin) 900 mg tablet (20 sources) Start: 06-17-2022 take 1 tablet by [...] 2022 11:00pm atorvastatin 10 mg oral tablet (18 sources) HMG-CoA Reductase Inhibitor Start: 07-11-2023 take 1 tablet by mouth once daily Atorvastatin 10 mg tablet Active 10 mg PO DAILY July 11, 2023 12:00am benoxinate hydrochloride 4 mg/ml / fluorescein sodium 2.5 mg/ml ophthalmic solution (1 source) Diagnostic Dye Start: 04-09-2022 End: 04-10-2022 fluorescein-benoxina te 0.25-0.4 % 1 Drop (FLURESS) 24 hr buPROPion hydrochloride 300 mg extended release oral tablet (1 source) Aminoketone bupropion HCl XL 300 mg 24 hr tablet, extended release active Sherrill Moulton [facility] jakiosx-rikgqihph-toi per-zinc tablet (1 source) take 3 tablets by mouth once daily mdettxu-fvmmhcyoy-hj pper-zinc tablet 3 tablet by mouth once a day active Jailene Colby [employer] [facility] cholecalciferol 0.075 mg oral tablet (20 sources) [...] 17, 2022 12:00am July 11, 2023 8:31am Chondroitin Sulfates / Glucosamine (1 source) take 2 capsules by mouth once daily Glucosamine Chondroitin MaxStr 500-400 mg capsule 2 capsule by mouth once a day active Jailene Colby [facility] cinnamon bark 500 mg oral capsule (20 sources) Start: 06-17-2022 take 1 capsule by [...] in the ri ght eye twice daily. Rogers 7-Dva-Xlj-Fish Oil (20 sources) Start: 06-17-2022 Rogers 6-Srw-Ooy-Fish Oil (Fish Oil) 300-1,000 mg capsule Active 1 NMA PO DAILY June 17, 2022 12:00am Start: 06-17-2022 take 300-1000 mg by mouth once daily Rogers 0-Ajz-Ppp-Fish Oil (Fish Oil) 300-1,000 mg capsule Active 1 CAP PO DAILY June 17, 2022 12:00am Start: 06-17-2022 take 300-1000 mg by mouth once daily Rogers 0-Jfy-Aii-Fish Oil (Fish Oil) 300-1,000 mg capsule Active [...] in the ri ght eye twice daily. DULoxetine 60 mg delayed release oral capsule (1 source) Serotonin and Norepinephrine Reuptake Inhibitor duloxetine 60 mg capsule,delayed release active Sherrill Moulton [facility] ergocalciferol, vitamin D2, (VITAMIN D2 ORAL) (5 [...] mouth daily in the p.m. ESCITALOPRAM OXALATE [phone] Valentina Flores DC Comment on above: Escitalopram Oxalate Active 10 MG daily December 12, 2017 8:45am Flaxseed Oil (7 sources) Start: 06-17-2022 Flaxseed Oil Active 5 ML MC TWICE A DAY June 17, 2022 12:00am Start: 06-17-2022 Flaxseed Oil A ctive 5 ML MC TWICE A DAY June 16, 2022 11:00pm glucosamine/msm/csa/amelia/hrb1 15 (YJTKGWUXXH-BXGMM-IDU-AMELIA-115HC ORAL) (5 sources) glucosamine/msm/ csa/amelia/sob544 (HYGFRXHQJX-ZAPYZ-QSJ-AMELIA-115HC ORAL) Take by mouth once daily. Active glucosamine/msm/ csa/amelia/jtp796 (SABKUUVZFP-ZYMLC-RDA-AMELIA-115HC ORAL) Take by mouth once daily. 0 [...] Hydrocortisone 2.5%/Lidocain e 5% Suppository (Cmpd) suppository (15 sources) Start: 07-11-2023 Hydrocortisone 2.5%/Lidocaine 5% Suppository [...] TAB Take by mouth. 0 08/12/2005 Active levothyroxine 12 5 mcg tablet active Sherrill Moultno [facility] Comment on above: Take by mouth. levothyroxine 25 mcg capsule Active December 12, 2017 8:45am loratadine 10 mg oral tablet (20 sources) Start: 05-26-20 09 take 1 tablet by mouth once daily Loratadine (Claritin) 10 mg tablet Active 10 mg PO DAILY July 11, 2023 12:00am Comment on above: Take one(1) tablet d aily as needed for allergy symptoms. magnesium gluconate 550 mg oral tablet (20 sources) Start: 06-17-20 take 1 tablet by mouth once daily Magnesium 30 mg tablet Active 30 mg PO DAILY June 17, 2022 12:00am melatonin 10 mg oral capsule (1 source) take 1 capsule by mouth once daily melatonin 10 mg capsule Take 1 capsule by mouth once a day as directed active Sherrill Moulton [facility] meloxicam 15 mg oral tablet (1 source) Nonsteroidal Anti-inflammatory Drug meloxicam 15 mg tablet active Sherrill Moulton [facility] Multivitamin preparation (7 sources) Start: 06-17-20 take 1 tablet by mouth once daily Multivitamin Active 1 TABLET PO DAILY June 17, 2022 12:00am Start: 06-17-2022 take 1 tablet by mike th once daily Multivitamin Active 1 TABLET PO DAILY June 16, 2022 11:00pm Multivitamin tablet (15 sources) Start: 06-17-2022 Multivitamin t ablet Active 1 {tbl} PO DAILY June 17, 2022 12:00am multivitamins(DAILY VITAMIN TAB) (5 sources) Start: 05-26-2009 multivitamins( DAILY VITAMIN TAB) Take by mouth. 0 05/26/2009 Active Comment on above: Take by mouth. Ayyps-5-KPG-EPA-Fish Oil 300-1,000 mg cap (4 sources) Yfebb-1-HTF-EPA- Fish Oil 300-1,000 mg cap Take by mouth once daily. Active Zwwiv-3-PYS-EPA- Fish Oil 300-1,000 mg cap Take by mouth once daily. 0 Active Comment on above: Take by mouth once d aily. phenylephrine hydrochloride 25 mg/ml ophthalmic solution (1 source) alpha-1 Adrenergic Agonist Start: End: PHENYLephrine 2.5 % 1 Drop (AK-DILATE, JUSTICE-SYNEPHRINE) pitavastatin calcium 1 mg oral tablet (1 source) HMG-CoA Reductase Inhibitor pitavastatin calcium 1 mg tablet active Sherrill Moulton [facility] prednisoLONE acetate 10 mg/ml ophthalmic suspension (5 [...] daily. traZODone hydrochloride 50 mg oral tablet (18 sources) Serotonin Reuptake Inhibitor Start: take 1 tablet by mouth at bedtime as needed Trazodone 50 mg tablet Active 50 mg PO AT BEDTIME as needed for insomnia July 11, 2023 12:00am tropicamide 10 mg/ml ophthalmic solution (1 source) Anticholinergic Start: End: tropicamide 1 % 1 Drop (MYDRIACYL) ubidecarenone 100 mg oral capsule (20 sources) Start: Coenzyme Q10 (Coq-10) 100 mg capsule Active 100 mg PO DAILY June 17, 2022 12:00am ubiquinol 200 mg oral capsule (1 source) take 1 capsule by mouth once daily coQ10 (ubiquinol) 200 mg capsule 1 capsule by mouth once a day active Jailene Colby [employer] [facility] VITAMIN D3 (CHOLECALCIFEROL) 50 MCG (2000 UT) TABS (1 source) take 1 tablet by mouth once daily Vitamin D3 50 mcg (2,000 unit) tablet 1 tablet by mouth once a day active Jailene Colby [facility] Completed/Discontinued Medications Medication Drug Class(es) Dates Sig (Normalized) Sig (Original) benzonatate 200 mg oral capsule (20 sources) Non-narcotic Antitussive Start: 05-21-2024 End: 09-03-2024 [...] March 19, 2024 1:43pm Flaxseed Oil oil (15 sources) Start: 06-17-2022 End: 09-03-2024 Flaxseed Oil oil Discontinued 5 mL MC TWICE A DAY June 17, 2022 12:00am September 03, 2024 7:56pm hydrocortisone 25 mg/ml topical cream (18 sources) Corticosteroid Start: 07-11-2023 End: 09-03-2024 Hydrocortisone (Proctosol Hc) 2.5 % cream with perineal applicator Discontinued 1 NMA RC 1 to 2 times per day July 11, 2023 12:00am September 03, 2024 7:56pm levoFLOXacin 500 mg oral tablet (20 sources) Quinolone Antimicrobial Start: 08-30-2023 End: 09-03-2024 take 1 tablet by mouth once daily Levofloxacin 500 mg tablet Discontinued 500 mg PO DAILY 7 0 May 21, 2024 12:00am September 03, 2024 7:57pm Hkmxa-3-EAF-EPA-Fish Oil (FISH OIL) 300-1,000 mg cap (1 source) Ukkaq-3-DPP-EPA- Fis h Oil (FISH OIL) 300-1,000 mg cap Take by mouth once daily. 0 Active Comment on above: Take by mouth once d aily. saccharomyces boulardii 250 mg oral capsule (20 sources) Start: 06-17-2022 End: 07-11-2023 take 1 capsule by mouth twice daily Saccharomyces Boulardii (Daily Probiotic (S. Boulardii)) 250 mg capsule Discontinued 250 mg PO TWICE A DAY June 17, 2022 12:00am July 11, 2023 8:30am Turmeric extract (20 sources) Start: 06-17-2022 End: 07-11-2023 Turmeric 400 [...] 11:00pm zinc acetate 25 mg oral capsule (20 sources) Start: 06-17-2022 End: 07-11-2023 take 1 capsule by mouth once daily Zinc Acetate (Galzin) 25 mg (zinc) capsule Discontinued 25 mg PO DAILY June 17, 2022 12:00am July 11, 2023 8:31am Problems Active Problems Problem Classification Problem Date Documented Da te Episodic/Chronic Abdominal pain (1 source) Right upper quadrant pain; Translations: [Right upper quadrant pain] Onset: 08-02-2025 Episodic Acquired foot deformities (1 source) Hallux valgus; Translations: [Hallux valgus (acquired), left foot] Onset: 11-18-2022 11-18-2022 Chronic Acquired foot deformities (1 source) Hallux valgus; Translations: [Hallux valgus (acquired), right foot] Onset: 11-18-2022 11-18-2022 Chronic Anxiety disorders (20 sources) Anxiety; Translations: [Anxiety disorder, unspecified] 06-17-2022 Chronic Cataract (1 source) Pseudophakia; Translations: [Presence of intraocular lens] Chronic Complication of device; implant or graft (1 source) Oxiywzl-czvpnsx-jiig coma syndrome of right eye; Translations: [Other mechanical complication of other ocular prosthetic devices, implants and grafts, initial encounter] Episodic Disorders of lipid metabolism (1 source) Hyperlipidemia, unspecified; Translations: [Hyperlipidemia, unspecified] Onset: 07-06-2025 Chronic Hemorrhoids (2 sources) Unspecified hemorrhoids; Translations: [Unspecified hemorrhoids without mention of complication] 07-11-2023 Episodic Mood disorders (20 sources) Depressive disorder; Translations: [Depression] 06-17-2022 Chronic Nonmalignant breast conditions (5 sources) Fibrocystic disease of breast; Translations: [Diffuse cystic mastopathy of unspecified breast] Onset: 07-16-2010 07-16-2010 Chronic Nutritional deficiencies (1 source) Vitamin D deficiency, unspecified; Translations: [Vitamin D deficiency, unspecified] Onset: 04-29-2025 Chronic Osteoarthritis (1 source) Bilateral primary osteoarthritis of knee; Translations: [Osteoarthrosis, unspecified whether generalized or localized, lower leg] Onset: 06-18-2022 06-06-2025 Chronic Other bone disease and musculoskeletal deformities (20 sources) Segmental and somatic dysfunction; Translations: [Segmental and somatic dysfunction of cervical region] Onset: 12-13-2016 12-15-2016 Episodic Other bone disease and musculoskeletal deformities (20 sources) Segmental and somatic dysfunction of cervical region; Translations: [Nonallopathic lesions, cervical region] Onset: 07-29-2025 Episodic Other bone disease and musculoskeletal deformities (20 sources) Segmental and somatic dysfunction of lumbar region; Translations: [Nonallopathic lesions, lumbar region] Onset: 07-29-2025 Episodic Other bone disease and musculoskeletal deformities (20 sources) Segmental and somatic dysfunction of pelvic region; Translations: [Nonallopathic lesions, pelvic region] Onset: 07-29-2025 Episodic Other bone disease and musculoskeletal deformities (20 sources) Segmental and somatic dysfunction of thoracic region; Translations: [Nonallopathic lesions, thoracic region] Onset: 07-29-2025 Episodic Other connective tissue disease (1 source) History of total knee arthroplasty; Translations: [Presence of right artificial knee joint] Onset: 08-13-2022 08-13-2022 Chronic Other connective tissue disease (2 sources) Pain in right foot; Translations: [Pain in right foot] Episodic Other connective tissue disease (1 source) Pain in right foot; Translations: [Foot pain, right] Onset: 05-18-2023 Episodic Other endocrine disorders (1 source) Disorder of adrenal gland, unspecified; Translations: [Disorder of adrenal gland, unspecified] Onset: 06-05-2025 Chronic Other nervous system disorders (2 sources) Peripheral nerve disease ; Translations: [Polyneuropathy, unspecified] Onset: 06-06-2025 5 Chronic Other nervous system disorders (2 sources) Anesthesia of skin; Translations: [Anesthesia of skin] Onset: 07-08-2025 Episodic Other non-traumatic joint disorders (3 sources) [...] mammogram for malignant neoplasm of breast] Onset: 05-30-2025 Episodic Other skin disorders (2 sources) Generalized hyperhidrosis; Translations: [Generalized hyperhidrosis] Onset: 04-29-2025 Episodic Other skin disorders (2 sources) Foot callus; Translations: [Corns and callosities] Onset: 06-06-2025 06-06-2025 Episodic Other upper respiratory infections (16 sources) Acute sinusitis; Translations: [Acute sinusitis, unspecified] 08-30-2023 Episodic Retinal detachments; defects; vascular occlusion; and retinopathy (1 source) Cystoid macular edema of right retina; 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, right eye] Chronic Spondylosis; intervertebral disc disorders; other back problems (20 sources) Degeneration of cervical intervertebral disc; Translations: [Other cervical disc degeneration, unspecified cervical region] Onset: 07-29-2025 Chronic Spondylosis; intervertebral disc disorders; other back problems (20 sources) Cervical disc disorder with radiculopathy; Translations: [Cervical disc disorder at C5-C6 level with radiculopathy] Onset: 06-06-2025 Episodic Spondylosis; intervertebral disc disorders; other back problems (4 sources) Cervical disc disorder at C5-C6 level with radiculopathy; Translations: [Cervical disc disorder at C5-C6 level with radiculopathy] Onset: 12-13-2016 12-15-2016 Thyroid disorders (20 sources) Hypothyroidism; Translations: [Hypothyroidism, unspecified] Onset: 03-27-2025 06-17-2022 Chronic Unclassified (1 source) Other intervertebral disc degeneration, lumbar region with discogenic back pain only; Translations: [Other intervertebral disc degeneration, lumbar region with discogenic back pain only] Onset: 07-29-2025 Past or Other Problems Problem Classification Problem Date Documented Da te Episodic/Chronic Acquired foot deformities (1 source) Talipes planus; Translations: [Flat foot [pes planus] (acquired), left foot] Onset: 11-18-2022 11-18-2022 Episodic Acquired foot deformities (1 source) Talipes planus; Translations: [Flat foot [pes planus] (acquired), right foot] Onset: 11-18-2022 11-18-2022 Episodic Diabetes mellitus without complication (1 source) Other abnormal glucose; Translations: [Other abnormal glucose] Onset: 04-03-2025 Episodic Nonspecific chest pain (1 source) Chest pain, unspecified; Translations: [Chest pain, unspecified] Onset: 02-11-2025 Episodic Other aftercare (1 source) Follow-up status; Translations: [Encounter for other orthopedic aftercare] Onset: 01-03-2023 01-03-2023 Episodic Other connective tissue disease (1 source) Tendinitis of right posterior tibial tendon; Translations: [Posterior tibial tendinitis, right leg] Onset: 05-23-2023 05-23-2023 Episodic Other connective tissue disease (1 source) Tendinitis of left posterior tibial tendon; Translations: [Posterior tibial tendinitis, left leg] Onset: 11-18-2022 11-18-2022 Episodic Other connective tissue disease (1 source) Plantar fasciitis; Translations: [Plantar fascial fibromatosis] Onset: 11-18-2022 11-18-2022 Episodic Results Test Name Value Interpretation Reference Range Facility Chiropractic Reporton 2024 Chiropractic Report [facility] [address] [place], [place] [id number] OFFICE VISIT Date of Service: 07/29/25 MR#: [id number] Acct: [id number] Name: RACHELLE BURGOS Rep #: [id number] : 1955 Provider: GARCIA Roy Age/Sex: 70/F Location: [facility] [place] Status: Signed Intake Vital Signs 02/11/25 14:52 Height 5 ft 8 in Intake Visit Reasons: ACUPUNCTURE/ADJUSTMEN T Chief Complaint: neck, upper and left low back pain Allergies Penicillins Allergy (Mild, Verified 07/01/25 14:04) itching Seasonal Allergies: Uncoded Allergy (Verified 07/01/25 14:04) Other Have you fallen in the past year?: No [facility] Medical History Acute sinusitis, unspecified Hemorrhoids [...] times per week seatbelt use: always HPI ACUPUNCTURE/ADJUSTMEN T Chief Complaint: neck, upper, mid and low back pain Visit Number: 9 Details: Rachelle is a 69 year old female here to f/u with ongoing neck, upper back/shoulder blade, and left low back pain. Pt. reports some improvement in her neck and low back pain. She continues to experience neck stiffness particularly worse on the right side. She c/o left shoulder and arm pain rating 4/10. she states her mid back/braline area has been sore, achy and painful for a couple weeks. She rates her mid back pain 3/10. She denies new injury, numbness or tingling. She continues to do yoga to stay flexible and help ease her discomfort. Dee reports chiropractic adjustments and acupuncture are helpful in relieving her pain and discomfort but it gradually returns Location: neck, upper, mid and low back Duration: frequent Aggravating or associated factors: lifting, walking, ADL's Relieving factors: chiro, acu Pain Quality: aching, dull and radiating Exam Musc General: Yes normal gait, joint tenderness and decreased range of motion; No normal posture or muscle weakness Cervical Spine: Yes loss of normal cervical lordosis, Yes cervical muscular tenderness right greater than left diffuse , Yes cervical spasm left upper intrinsics, left greater than right diffuse trapezius and paracervical muscles and Yes misalignment misalignment: C5, C6 and C7 Thoracic/Lumber: Yes thoracic and lumbar spine normal to inspection, Yes paraspinal tenderness on the left greater than right (upper thoracic,lumbopelvic) , Yes thoraco-lumbar spasm on the left greater than right (QL, glute med, trap, rhomboid) and Yes misalignment T3, T4, T5, T6, L3, L4, L5, RIL and LIL Sacroiliac joints: on the left tender to palpation Office Procedures Procedures - Chiropractic Procedures Manipulation: Cervical C5, Lumbar L4, Thoracic T3 and T6 and Pelvis LIL Manipulation: 3-4 regions Patient Response: positive Details: ???Acupuncture Patient instructions/Risk: Patient instructed not to move and informed of risks of moving. Risks associated with the procedure and the specific location were reviewed with the patient and consent was obtained. Acupuncture performed: E-stim was not utilized. Acupoints Treated: GB21,BL23/25/40/60,ya oyan,KD7,SJ pts trap Sterile, single use, solid filament needles were inserted at various depths and angles to release tight tissue, improve microcirculation and remove neuro-noxious chemicals via a myofascial twitch response. [place] were inserted, needle manipulation was performed. Needle removal was performed and pressure was applied when necessary. Minutes:20 Needle Number: .20x30 Patient response: pos Patient Posi (more content not included)... Normal [facility] Hepatobilliary Img w/Pharm I nton 07-26-2025 Hepatobilliary Img w/Pharm Int [facility] Imaging Services [address] [place] [address] [id number] Hepatobilliary Img w/Pharm Int MR#: [id number] Acct: [id number] Name: RACHELLE BURGOS Rep #: [id number] : 1955 F 70 From: Ankur martin MD PCP: Dr. Yonatan Courtney MD Status: REG CLI Study: Hepatobilliary Img w/Pharm Int Date of Exam: 0 07/26/25 Exam# [id number] Ordering Dr: Yonatan Courtney MD PROCEDURE: HEPATOBILLIARY IMG W/PHARM INT 07/26/2025 REASON FOR EXAM: RUQ PAIN TECHNIQUE: Procedure Code: NMHBIWP Modality: NM Procedure: HEPATOBILLIARY IMG W/PHARM INT Intravenous Choletec with planar imaging of the abdomen. 1.9 mcg Kinevac intravenously approximately 60 minutes after the radiopharmaceutical with additional anterior imaging and a region of interest drawn around the gallbladder to calculate a time-activity curve. RADIOPHARMACEUTICAL: Mebrofenin DOSE 5.5mCi COMPARISON: Prior sonogram of the right upper quadrant dated June 28, 2025. FINDINGS: There is good uptake of the radiopharmaceutical by the liver. Normal gallbladder visualization with the gallbladder identified by 30 minutes. Gallbladder Ejection Fraction: 89 % (Normal is >35%) NM/Hepatobilliary Img w/Pharm Int IMPRESSION: Normal hepatobiliary scan. Normal gallbladder ejection fraction. Reading Location: [facility] CC: Dr. Yonatan Courtney MD Matrix Repairer: Signed Normal [facility] Bone density reportOrdered B y: Ankur Galeano on 07-09-2025 Study report Skeletal system DXA [facility] Imaging Services [address] [place], [place] [id number] Dexa Bone Density Study MR#: [id number] Acct: [id number] Name: RACHELLE BURGOS Rep #: [id number] : 1955 F 70 From: Shaheed Galeano MD PCP: Dr. Yonatan Courtney MD Status: REG C LI Study:Dexa Bone Density Study Date of Exam: 07/09/25 Exam# [id number] Ordering Dr: Yonatan Courtney MD PROCEDURE: DEXA BONE DENSITY STUDY 07/09/2025 REASON FOR EXAM: F, age 70 y/o . Postmenopausal. TECHNIQUE: DEXA BONE DENSITY STUDY COMPARISON: October 06, 2021. FINDINGS: BMD and T-SCORES Lumbar spine: 1.055 g/cm2, T-score -0.4 Levels: L1 through L4 Change from prior: Loss of 5.4%. Left femoral neck: 0.787 g/cm2, T-score -0.6 Femoral neck comparison data not recommended for monitoring change. Left total hip: 0.993 g/cm2, T-score 0.4 Change from prior: Loss of 2.8%. Right femoral neck: 0.792 g/cm2, T-score -0.5 Femoral neck comparison data not recommended for monitoring change. Right total hip: 0.938 g/cm2, T-score 0.0 Change from prior: Loss of 3.7%. The World Health Organization has defined the following categories based on bonedensity: Normal bone density: T-score equal to or greater than -1.0 Osteopenia: T-score between -1.0 and -2.5 Osteoporosis: T-score equal to or less than -2.5 FRAX (or Comparable) Fracture Risk Assessment: 10 Year Probability of Fracture: Major Osteoporotic Fracture: 7.5% Hip Fracture: 0.5% (Note: FRAX is not to be reported in setting of normal range bone density, osteoporosis on DEXA, known history of osteoporosis, prior osteoporotic hip or vertebral fracture, or for any patient undergoing pharmacological treatment for bone loss.) The National Osteoporosis Foundation (NOF) recommends pharmacological treatment for patients with a FRAX 10-year risk of 3% or higher for a hip fracture, or 20% or higher for a major osteoporotic fracture, to prevent osteoporosis and reduce fracture risk. The patient does not meet the pharmacological treatment recommendations for prevention of osteoporosis. BD/Dexa Bone Density Study IMPRESSION: NORMAL T-SCORES. Recommend follow-up as clinically warranted. Reading Location: [id number] CC: Dr. Yonatan Courtney MD ~ Matrix Repairer: Signed [facility] Dexa Bone Density Studyon Dexa Bone Density Study [facility] Imaging Services [address] [place], [place] [address] Dexa Bone Density Study MR#: [id number] Acct: [id number] Name: RACHELLE BURGOS Rep #: [id number] : 1955 F 70 From: Ankur martin MD PCP: Dr. Yonatan Courtney MD Status: REG CLI Study: Dexa Bone Density Study Date of Exam: 07/09/25 Exam# [id number] Ordering Dr: Yonatan Courtney MD PROCEDURE: DEXA BONE DENSITY STUDY 07/09/2025 REASON FOR EXAM: F, age 70 y/o . Postmenopausal. TECHNIQUE: DEXA BONE DENSITY STUDY COMPARISON: October 06, 2021. FINDINGS: BMD and T-SCORES Lumbar spine: 1.055 g/cm2, T-score -0.4 Levels: L1 through L4 Change from prior: Loss of 5.4%. Left femoral neck: 0.787 g/cm2, T-score -0.6 Femoral neck comparison data not recommended for monitoring change. Left total hip: 0.993 g/cm2, T-score 0.4 Change from prior: Loss of 2.8%. Right femoral neck: 0.792 g/cm2, T-score -0.5 Femoral neck comparison data not recommended for monitoring change. Right total hip: 0.938 g/cm2, T-score 0.0 Change from prior: Loss of 3.7%. The World Health Organization has defined the following categories based on bone density: Normal bone density: T-score equal to or greater than -1.0 Osteopenia: T-score between -1.0 and -2.5 Osteoporosis: T-score equal to or less than -2.5 FRAX (or Comparable) Fracture Risk Assessment: 10 Year Probability of Fracture: Major Osteoporotic Fracture: 7.5% Hip Fracture: 0.5% (Note: FRAX is not to be reported in setting of normal range bone density, osteoporosis on DEXA, known history of osteoporosis, prior osteoporotic hip or vertebral fracture, or for any patient undergoing pharmacological treatment for bone loss.) The National Osteoporosis Foundation (NOF) recommends pharmacological treatment for patients with a FRAX 10-year risk of 3% or higher for a hip fracture, or 20% or higher for a major osteoporotic fracture, to prevent osteoporosis and reduce fracture risk. The patient does not meet the pharmacological treatment recommendations for prevention of osteoporosis. BD/Dexa Bone Density Study IMPRESSION: NORMAL T-SCORES. Recommend follow-up as clinically warranted. Reading Location: [id number] CC: Dr. 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 Chief Complaint: neck, upper and left low back pain Is patient in pain?: Yes (neck, upper and low back) Pain scale (1-10): 4 Allergies Penicillins Allergy (Mild, Verified 07/01/25 14:04) itching Seasonal Allergies: Uncoded Allergy (Verified 07/01/25 14:04) Other Medications ???Medication ???Instructions ???Recorded ???Confirmed ???Type antiarthritic combination no.2 900 900 mg PO DAILY arthritis 07/01/25 History mg tablet (glucosamine-chondroi tin) cinnamon bark 500 mg capsule 500 mg PO DAILY 06/17/22 07/01/25 History (Cinnamon) coenzyme Q10 100 mg capsule 100 mg PO DAILY 06/17/22 07/01/25 History (CoQ-10) magnesium 30 mg tablet 30 mg PO DAILY 06/17/22 07/01/25 H istory multivitamin 1 tab PO DAILY 06/17/22 07/01/25 H istory omega 5-wlo-vbq-fish oil 300 1 cap PO DAILY 06/17/22 07/01/25 H istory mg-1,000 mg capsule (Fish Oil) Hydrocortisone 2.5%/lidocaine 5% #30 ea 07/11/23 07/01/25 Rx suppository (cmpd) atorvastatin 10 mg tablet 10 mg PO DAILY 07/11/23 07/01/25 H istory cholecalciferol (vitamin D3) 75 50 mcg PO DAILY 07/11/23 07/01/25 History mcg (3,000 unit) tablet levothyroxine 25 mcg capsule 137 mcg PO DAILY 07/11/23 07/01/25 History loratadine 10 mg tablet (Claritin) 10 mg PO DAILY 07/11/23 07/01/25 History trazodone 50 mg tablet 50 mg PO QHS PRN insomnia 07/11/23 07/01/25 History escitalopram oxalate 20 mg tablet 20 mg PO DAILY 08/30/23 07/01/25 History Have you fallen in the past year?: Yes PFSH Medical History Acute sinusitis, unspecified Hemorrhoids [...] times per week seatbelt use: always HPI 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 She complains of neck pain and stiffness particularly worse on the right side. The pain can be sharp at times and extends down her trap under her right shoulder blade. She has been experiencing occasional headaches and rates her neck pain 4/10. She continues to c/o left low back/hip pain. She rates her low back pain 3/10. She denies new injury, numbness or tingling. She continues to do yoga to stay flexible and help ease her discomfort. Dee reports feeling fatigue often and has occasional dizziness. Pt. reports chiropractic adjustments and acupuncture are helpful in relieving her pain and [...] greater than right diffuse trapezius and paracervical muscles and Yes misalignment misalignment: C5, C6 and C7 (more content not included)... Normal [facility] Absolute lymphocyte countOrd ered By: Yonatan Courtney on 06-28-2025 Lymphocytes Auto (Unsp spec) [#/Vol] 1.53 10*3/uL 0.83-4.51 [facility] Absolute neutrophil countOrd ered By: Yonatan Courtney on 06-28-2025 Neutrophils (Bld) [#/Vol] 3.3 10*3/uL 2.0-7.7 [facility] Anion gap in Serum or Plasma Ordered By: Yonatan Courtney on 06-28-2025 Anion gap [Moles/Vol] 12 mmol/L - [facility] Automated lymphocyte count a s percentage of total leukocytesOrdered By: Yonatan Courtney on 06-28-2025 Lymphocytes/100 WBC Auto (Unsp spec) 27.7 % 19-41 [facility] BUN/creatinine ratioOrdered By: Yonatan Courtney on 06-28-2025 Urea nitrogen/Creatinine [Mass ratio] 16.8 mg/mg 10-20 [facility] Basophil percentageOrdered B y: Yonatan Courtney on 06-28-2025 Basophils/100 WBC (Bld) 0.7 % 0-1 [facility] Bilirubin, totalOrdered By: Yonatan Courtney on 06-28-2025 Bilirubin [Mass/Vol] 0.53 mg/dL 0.00-1.30 [facility] CBC W/Diff, Automatedon 06-14 Absolute Lymph 1.53 X10 3/uL Normal 0.83-4.51 [facility] Comment on above: Performed By: #### L 3410.9992, L3600.5400, L502.000 #### [facility] Laboratory [address] [place], [address] Absolute Neut 3.3 X10 3/uL Normal 2.0-7.7 [facility] Comment on above: Performed By: #### L 3410.9992, L3600.5400, L502.000 #### [facility] [address] [place], [address] Basophils/100 WBC (Bld) 0.7 % Normal 0-1 [facility] Comment on above: Performed By: #### L 3410.9992, L3600.5400, L502.000 #### [facility] [address] [place], [address] Eosinophils/100 WBC (Bld) 3.6 % Normal 0-5 [facility] Comment on above: Performed By: #### L 3410.9992, L3600.5400, L502.000 #### [facility] [address] [place], [address] Erythrocyte distribution width (RBC) [Ratio] 13.4 % Normal 11.6-14.6 [facility] Comment on above: Performed By: #### L 3410.9992, L3600.5400, L502.000 #### [facility] [address] [place], [address] Hematocrit (Bld) [Volume fraction] 44.9 % Normal 37-47 [facility] Comment on above: Performed By: #### L 3410.9992, L3600.5400, L502.000 #### [facility] [address] [place], [address] Hemoglobin (Bld) [Mass/Vol] 14.2 g/dL Normal 12.0-15.0 [facility] Comment on above: Performed By: #### L 3410.9992, L3600.5400, L502.000 #### [facility] [address] [place], [address] IG% 0.400 Normal 0.0-0.9 [facility] Comment on above: Result Comment: IG% - Immature Granulocytes (promyelocytes, myelocytes and metamyelocytes) > 1% indicates that a LEFT SHIFT is Present. Performed By: #### L 3410.9992, L3600.5400, L502.000 #### [facility] [address] [place], [address] Lymphocytes/100 WBC (Bld) 27.7 % Normal 19-41 [facility] Comment on above: Performed By: #### L 3410.9992, L3600.5400, L502.000 #### [facility] [address] [place], [address] MCH (RBC) [Entitic mass] 30.5 pg Normal 27.0-32.0 [facility] Comment on above: Performed By: #### L 3410.9992, L3600.5400, L502.000 #### [facility] [address] [place], [address] MCHC (RBC) [Mass/Vol] 31.6 g/dL Low 32-36 [facility] Comment on above: Performed By: #### L 3410.9992, L3600.5400, L502.000 #### [facility] [address] [place], [address] MCV (RBC) [Entitic vol] 96.4 fL Normal 81-99 [facility] Comment on above: Performed By: #### L 3410.9992, L3600.5400, L502.000 #### [facility] [address] [place], [address] Monocytes/100 WBC (Bld) 7.4 % Normal 0-10 [facility] Comment on above: Performed By: #### L 3410.9992, L3600.5400, L502.000 #### [facility] [address] [place], [address] Neutrophils/100 WBC (Bld) 60.2 % Normal 47-70 [facility] Comment on above: Performed By: #### L 3410.9992, L3600.5400, L502.000 #### [facility] [address] [place], [address] Nucleated RBC (Bld) [#/Vol] 0 10*3/uL Normal 0-5 [facility] Comment on above: Performed By: #### L 3410.9992, L3600.5400, L502.000 #### [facility] [address] [place], [address] Platelet mean volume (Bld) [Entitic vol] 10.2 fL Normal 6.2-12.0 [facility] Comment on above: Performed By: #### L 3410.9992, L3600.5400, L502.000 #### [facility] [address] [place], [address] Platelets (Bld) [#/Vol] 272 10*3/uL Normal 150-450 [facility] Comment on above: Performed By: #### L 3410.9992, L3600.5400, L502.000 #### [facility] [address] [place], [address] RBC (Bld) [#/Vol] 4.66 10*6/uL Normal 4.2-5.4 [facility] Comment on above: Performed By: #### L 3410.9992, L3600.5400, L502.000 #### [facility] [address] [place], [address] RDW SD 47.8 fl High 35.1-43.9 [facility] Comment on above: Performed By: #### L 3410.9992, L3600.5400, L502.000 #### [facility] [address] [place], [address] WBC (Bld) [#/Vol] 5.5 10*3/uL Normal 4.4-11.0 [facility] Comment on above: Performed By: #### L 3410.9992, L3600.5400, L502.000 #### [facility] [address] [place], [address] Calculated very low density lipoprotein (VLDL) cholesterol measurementOrdered By: Yonatan Courtney on 06-28-2025 Calculated very low density lipoprotein (VLDL) cholesterol measurement 29 mg/dL 5-40 [facility] Carbon dioxide, total [Moles /volume] in Central venous bloodOrdered By: Yonatan Courtney on 06-28-2025 CO2 [Moles/Vol] 25.9 mmol/L 21.0-32.0 [facility] Chloride assayOrdered By: Suresh Courtney on 06-28-2025 Chloride [Moles/Vol] 102 mmol/L 98-108 [facility] Comprehensive Metabolic Prof ilon 06-28-2025 Albumin [Mass/Vol] 4.3 g/dL Normal 3.4-4.8 [facility] Comment on above: Performed By: #### L 3410.9992, L3600.5400, L502.000 #### [facility] [address] [place], [address] Albumin/Globulin [Mass ratio] 1.7 {ratio} Normal 0.9-2.4 [facility] Comment on above: Performed By: #### L 3410.9992, L3600.5400, L502.000 #### [facility] [address] [place], [address] ALK PHOS 70 U/L Normal 35-104 [facility] Comment on above: Performed By: #### L 3410.9992, L3600.5400, L502.000 #### [facility] [address] [place], [address] ALT [Catalytic activity/Vol] 21 U/L Normal <=34 [facility] Comment on above: Performed By: #### L 3410.9992, L3600.5400, L502.000 #### [facility] [address] [place], [address] AST [Catalytic activity/Vol] 20 U/L Normal <=31 [facility] Comment on above: Performed By: #### L 3410.9992, L3600.5400, L502.000 #### [facility] [address] [place], [address] Bilirubin [Mass/Vol] 0.53 mg/dL Normal 0.00-1.30 [facility] Comment on above: Performed By: #### L 3410.9992, L3600.5400, L502.000 #### [facility] [address] [place], [address] BUN/CRE 16.8 RATIO Normal 10-20 [facility] Comment on above: Performed By: #### L 3410.9992, L3600.5400, L502.000 #### [facility] [address] [place], [address] Calcium [Mass/Vol] 9.4 mg/dL Normal 7.6-11.0 [facility] Comment on above: Performed By: #### L 3410.9992, L3600.5400, L502.000 #### [facility] [address] [place], [address] Chloride [Moles/Vol] 102 mmol/L Normal 98-108 [facility] Comment on above: Performed By: #### L 3410.9992, L3600.5400, L502.000 #### [facility] [address] [place], [address] CO2 [Moles/Vol] 25.9 mmol/L Normal 21.0-32.0 [facility] Comment on above: Performed By: #### L 3410.9992, L3600.5400, L502.000 #### [facility] [address] [place], [address] Creatinine [Mass/Vol] 0.85 mg/dL Normal 0.70-1.20 [facility] Comment on above: Performed By: #### L 3410.9992, L3600.5400, L502.000 #### [facility] [address] [place], [address] GAP 12 Normal 5-15 [facility] Comment on above: Performed By: #### L 3410.9992, L3600.5400, L502.000 #### [facility] [address] [place], [address] GFR/1.73 sq M.predicted among non-blacks MDRD (S/P/Bld) [Vol rate/Area] 75 mL/min/{1.73_m2} Normal >60 [facility] Comment on above: Result Comment: mL/m in/1.73m2 CKD-EPI Creatinine Equation (2020) Performed By: #### L 3410.9992, L3600.5400, L502.000 #### [facility] [address] [place], [address] Globulin (S) [Mass/Vol] 2.5 g/dL Normal 2.2-4.2 [facility] Comment on above: Performed By: #### L 3410.9992, L3600.5400, L502.000 #### [facility] [address] [place], [address] Glucose [Mass/Vol] 119 mg/dL High 70-99 [facility] Comment on above: Performed By: #### L 3410.9992, L3600.5400, L502.000 #### [facility] [address] [place], [address] Potassium [Moles/Vol] 4.3 mmol/L Normal 3.3-5.1 [facility] Comment on above: Performed By: #### L 3410.9992, L3600.5400, L502.000 #### [facility] [address] [place], [address] Sodium [Moles/Vol] 141 mmol/L Normal 133-145 [facility] Comment on above: Performed By: #### L 3410.9992, L3600.5400, L502.000 #### [facility] [address] [place], [address] T PROT 6.8 g/dL Normal 5.9-8.4 [facility] Comment on above: Performed By: #### L 3410.9992, L3600.5400, L502.000 #### [facility] [address] [place], [address] Urea nitrogen [Mass/Vol] 14 mg/dL Normal 4-19 [facility] Comment on above: Performed By: #### L 3410.9992, L3600.5400, L502.000 #### [facility] [address] [facility] [place], [place], [address] Eosinophil percentageOrdered By: Yonatan Courtney on 06-28-2025 Eosinophils/100 WBC (Bld) 3.6 % 0-5 [facility] Erythrocyte distribution wid th ratioOrdered By: Yonatan Courtney on 06-28-2025 Erythrocyte distribution width (RBC) [Ratio] 13.4 % 11.6-14.6 [facility] Erythrocyte distribution wid th standard deviationOrdered By: Yonatan Courtney on 06-28-2025 Erythrocyte distribution width (RBC) [Ratio] 47.8 fl High 35.1-43.9 [facility] Free T3on 06-28-2025 Free T3 [Mass/Vol] 2.2 pg/mL Normal 2.18-3.98 [facility] Comment on above: Performed By: #### L 3410.9992, L3600.5400, L502.000 #### [facility] [address] [place], [place], [id number] Free L3Krluyul By: Yonatan marquez on 06-28-2025 Free T3 [Mass/Vol] 2.2 pg/mL 2.18-3.98 [facility] Glomerular filtration rate ( GFR) estimation/1.73 sq m using serum, plasma, or whole bOrdered By: Yonatan Courtney on 06-28-2025 GFR/1.73 sq M.predicted among non-blacks MDRD (S/P/Bld) [Vol rate/Area] 75 mL/min/{1.73_m2} >60 [facility] Comment on above: mL/min/1.73m2 CKD-EP I Creatinine Equation (2020) Hematocrit Auto (Bld) [Volum e fraction]Ordered By: Yonatan Courtney on 06-28-2025 Hematocrit (Bld) [Volume fraction] 44.9 % 37-47 [facility] Hemoglobin measurementOrdere d By: Yonatan Courtney on 06-28-2025 Hemoglobin (Bld) [Mass/Vol] 14.2 g/dL 12.0-15.0 [facility] Immature granulocytes/100 WB C Auto (Bld)Ordered By: Yonatan Courtney on 06-28-2025 Immature granulocytes/100 WBC (Bld) 0.400 % 0.0-0.9 [facility] Comment on above: IG% - Immature Granu locytes (promyelocytes, myelocytes and metamyelocytes) > 1% indicates that a LEFT SHIFT is Present. LDL calc ser/plasOrdered By: Yonatan Courtney on 06-28-2025 Cholesterol in LDL [Mass/Vol] 133 mg/dL [facility] Comment on above: Mqaufuszae=085-046 m g/dL & Higher Gsrl=223 mg/dL or greaterFriedwald Equation for LDL-C Laboratory - Chemistry and C hemistry - challengeOrdered By: Yonatan Courtney on 06-28-2025 AST [Catalytic activity/Vol] 20 U/L <32 [facility] Lipid Profileon 06-28-2025 CHOL:HDL 3.59 Normal [facility] Comment on above: Performed By: #### L 3410.9992, L3600.5400, L502.000 #### [facility] Laboratory [address] [place], [place], [address] Cholesterol [Mass/Vol] 225 mg/dL High <=200 [place] Comment on above: Result Comment: Chol esterol level, Desirable <200 mg/dL Borderline high cholesterol 200-239 mg/dL High cholesterol >=240 mg/dL Recommendations of the NCEP Adult Treatment Panel for the following risk-cutoff thresholds for the [place] population. Performed By: #### L 3410.9992, L3600.5400, L502.000 #### [facility] Laboratory [address] [place], [address] Cholesterol in HDL [Mass/Vol] 63 mg/dL Normal [facility] Comment on above: Result Comment: Rafia onal Cholesterol Education Program (NCEP) guidelines: <40 mg/dL: Low HDL-cholesterol (major risk factor for CHD) >= 60 mg/dL: High HDL-cholesterol (negative risk factor for CHD) HDL-cholesterol is affected by a number of factors, e.g. smoking, exercise, hormones, sex and age. Performed By: #### L 3410.9992, L3600.5400, L502.000 #### [facility] Laboratory [address] [place], [address] Cholesterol in LDL [Mass/Vol] 133 mg/dL Normal [facility] Comment on above: Result Comment: Bord oefuxx=934-641 mg/dL Higher Kqhh=566 mg/dL or greater Friedwald Equation for LDL-C Performed By: #### L 3410.9992, L3600.5400, L502.000 #### [facility] Laboratory [address] [place], [address] Cholesterol in VLDL [Mass/Vol] 29 mg/dL Normal 5-40 [facility] Comment on above: Performed By: #### L 3410.9992, L3600.5400, L502.000 #### [facility] Laboratory [address] [place], [address] Triglyceride [Mass/Vol] 145 mg/dL Normal [facility] Comment on above: Result Comment: The drugs N-Acetylcysteine and Metamizole may falsely depress this assay. Normal range: <150 mg/dL Borderline High: 150-199 mg/dL High: 200-499 mg/dL Very High: >500 mg/dL Performed By: #### L 3410.9992, L3600.5400, L502.000 #### [facility] Laboratory [address] [place], [address] MCV (mean corpuscular volume ) determinationOrdered By: Yonatan Courtney on 06-28-2025 MCV (RBC) [Entitic vol] 96.4 fL 81-99 [facility] Mean corpuscular hemoglobin (MCH) determinationOrdered By: Yonatan Courtney on 06-28-2025 MCH (RBC) [Entitic mass] 30.5 pg 27.0-32.0 [facility] Mean corpuscular hemoglobin concentration (MCHC) determinationOrdered By: Yonatan Courtney on 06-28-2025 MCHC (RBC) [Mass/Vol] 31.6 g/dL Low 32-36 [facility] Mean platelet volume determi nationOrdered By: Yonatan Courtney on 06-28-2025 Platelet mean volume (Bld) [Entitic vol] 10.2 fL 6.2-12.0 [facility] Monocyte percentageOrdered B y: Yonatan Courtney on 06-28-2025 Monocytes/100 WBC (Bld) 7.4 % 0-10 [facility] Neutrophil percentageOrdered By: Yonatan Courtney on 06-28-2025 Neutrophils/100 WBC (Bld) 60.2 % 47-70 [facility] Nucleated red blood cell per centageOrdered By: Yonatan Courtney on 06-28-2025 Nucleated RBC/100 WBC (Bld) [Ratio] 0 % 0-5 [facility] Platelet countOrdered By: Suresh Courtney on 06-28-2025 Platelets (Bld) [#/Vol] 272 10*3/uL 150-450 [facility] Potassium measurement (mass/ volume)Ordered By: Yonatan Courtney on 06-28-2025 Potassium (Unsp spec) [Mass/Vol] 4.3 mmol/L 3.3-5.1 [facility] RBC Auto (Bld) [#/Vol]Ordere d By: Yonatan Courtney on 06-28-2025 RBC (Bld) [#/Vol] 4.66 10*6/uL 4.2-5.4 [facility] Screening total cholesterol/ high density lipoprotein (HDL) cholesterol ratioOrdered By: Yonatan Courtney on 06-28-2025 Cholesterol.total/Magalie sterol in HDL [Mass ratio] 3.59 {ratio} [facility] Serum creatinine measurement (mass/volume)Ordered By: Yonatan Courtney on 06-28-2025 Creatinine [Mass/Vol] 0.85 mg/dL 0.70-1.20 [facility] Serum globulin measurementOr dered By: Yonatan Courtney on 06-28-2025 Globulin (S) [Mass/Vol] 2.5 g/dL 2.2-4.2 [facility] Serum glucose measurement (m ass/volume)Ordered By: Yonatan Courtney on 06-28-2025 Glucose [Mass/Vol] 119 mg/dL High 70-99 [facility] Serum or plasma alanine samson otransferase (ALT) measurementOrdered By: Yonatan Courtney on 06-28-2025 ALT [Catalytic activity/Vol] 21 U/L <35 [facility] Serum or plasma albumin annabel urement (mass/volume)Ordered By: Yonatan Courtney on 06-28-2025 Albumin [Mass/Vol] 4.3 g/dL 3.4-4.8 [facility] Serum or plasma albumin/glob ulin mass ratioOrdered By: Yonatan Courtney on 06-28-2025 Albumin/Globulin [Mass ratio] 1.7 {ratio} 0.9-2.4 [facility] Serum or plasma alkaline katelynn sphatase measurementOrdered By: Yonatan Courtney on 06-28-2025 ALP [Catalytic activity/Vol] 70 U/L 35-104 [facility] Serum or plasma calcium annabel urement (mass/volume)Ordered By: Yonatan Courtney on 06-28-2025 Calcium [Mass/Vol] 9.4 mg/dL 7.6-11.0 [facility] Serum or plasma cholesterol in HDL measurement (mass/volume)Ordered By: Yonatan Courtney on 06-28-2025 Cholesterol in HDL [Mass/Vol] 63 mg/dL >40 [facility] Comment on above: National Cholesterol Education Program (NCEP) guidelines:<40 mg/dL: Low HDL-cholesterol (major risk factor for CHD)>= 60 mg/dL: High HDL-cholesterol (negative risk factor for CHD)HDL-cholesterol is affected by a number of factors, e.g. smoking, exercise, hormones, sex and age. Serum or plasma cholesterol measurement (mass/volume)Ordered By: Yonatan Courtney on 06-28-2025 Cholesterol [Mass/Vol] 225 mg/dL High <201 [place] Comment on above: Cholesterol level, D esirable <200 mg/dLBorderline high cholesterol 200-239 mg/dLHigh cholesterol >=240 mg/dLRecommendations of the NCEP Adult Treatment Panel for the following risk-cutoff thresholds for the [place] population. Serum or plasma urea nitroge n measurement (mass/volume)Ordered By: Yonatan Courtney on 06-28-2025 Urea nitrogen [Mass/Vol] 14 mg/dL 4-19 [facility] Sodium levelOrdered By: Yonatan Courtney on 06-28-2025 Sodium [Moles/Vol] 141 mmol/L 133-145 [facility] T4 Free Directon 06-28-2025 T4 FREE DIRECT 1.00 ng/dL Normal 0.76-1.46 [facility] Comment on above: Performed By: #### L 3410.9992, L3600.5400, L502.000 #### [facility] Laboratory [address] [place], [place], [address] T4 freeOrdered By: Yonatan marquez on 06-28-2025 Free T4 [Mass/Vol] 1.00 ng/dL 0.76-1.46 [facility] TSH DL <= 0.005 mIU/L QnOrde red By: Yonatan Courtney on 06-28-2025 TSH Qn 2.920 uIU/mL 0.300-4.200 [facility] Thyroid Stim Hormone (TSH)on 06-28-2025 TSH 2.920 uIU/mL Normal 0.300-4.200 [facility] Comment on above: Performed By: #### L 3410.9992, L3600.5400, L502.000 #### [facility] Laboratory [address] [place], [place], [address] Total proteinOrdered By: Zahra Courtney on 06-28-2025 Protein [Mass/Vol] 6.8 g/dL 5.9-8.4 [facility] Triglycerides measurementOrd ered By: Yonatan Courtney on 06-28-2025 Triglyceride [Mass/Vol] 145 mg/dL <199 [facility] Comment on above: The drugs N-Acetylcy steine and Metamizole may falsely depress this assay. Normal range: <150 mg/dLBorderline High: 150-199 mg/dLHigh: 200-499 mg/dLVery High: >500 mg/dL White blood cell (WBC) count Ordered By: Yonatan Courtney on 06-28-2025 WBC (Bld) [#/Vol] 5.5 10*3/uL 4.4-11.0 [facility] Abdomen Limitedon 06-27-2025 Abdomen Limited [facility] Imaging Services [address] [place] [address] Abdomen Limited MR#: [id number] Acct: [id number] Name: RACHELLE BURGOS Rep #: [id number] : 1955 F 70 From: Ankur martin MD PCP: Dr. Yonatan Courtney MD Status: REG CLI Study: Abdomen Limited Date of Exam: 06/27/25 Exam# [id number] Ordering Dr: Yonatan Courtney MD PROCEDURE: ABDOMEN LIMITED 06/27/2025 REASON FOR EXAM: RUQ PAIN COMPARISON: None FINDINGS: Liver: Diffusely echogenic suggesting fatty infiltration. The liver measures 16.6 cm. Gallbladder: No stones sludge wall thickening or tenderness. Common bile duct: Normal measuring 4 mm. . Pancreas: Normal Other: Visualized portions of the right kidney are unremarkable. No right upper quadrant ascites. US/Abdomen Limited IMPRESSION: Fatty infiltration of the liver. Reading Location: [place] [address] CC: Dr. Yonatan Courtney MD Matrix Repairer: Signed Normal [facility] Relevant diagnostic tests/la boratory data Narrativeon 06-06-2025 EMG HX of the Bilateral lower extremity on 05/28/2025 at [facility] MD [facility]ingo. Work Phone: Fall risk assessment no [facility]IN [facility] [employer] Work Phone: MEDS REVIEW Documentation of current medications (procedure) [employer] Work Phone: MEDS REVIEWD Medications reviewed with changes MD [employer]ingo. Work Phone: Chiropractic Reporton 2024 Chiropractic Report [facility] [address] [place] [address] OFFICE VISIT Date of Service: 06/03/25 MR#: [id number] Acct: [id number] Name: RACHELLE BURGOS (LYNN) Rep #: [id number] : 1955 Provider: GARCIA Roy Age/Sex: 69/F Location: [facility] Status: Signed Intake Vital Signs 02/11/25 14:52 Height 5 ft 8 in Intake Visit Reasons: dry needling/adjustment Chief Complaint: neck, upper and left low back pain Is patient in pain?: Yes (neck and low back) Pain scale (1-10): 4 Allergies Penicillins Allergy (Mild, Verified 06/03/25 13:45) itching Seasonal Allergies: Uncoded Allergy (Verified 06/03/25 13:45) Other Medications ???Medication ???Instructions ???Recorded ???Confirmed ???Type antiarthritic combination no.2 900 900 mg PO DAILY arthritis 06/03/25 History mg tablet (glucosamine-chondroi tin) cinnamon bark 500 mg capsule 500 mg PO DAILY 06/17/22 06/03/25 History (Cinnamon) coenzyme Q10 100 mg capsule 100 mg PO DAILY 06/17/22 06/03/25 History (CoQ-10) magnesium 30 mg tablet 30 mg PO DAILY 06/17/22 06/03/25 H istory multivitamin 1 tab PO DAILY 06/17/22 06/03/25 H istory omega 2-ujv-ygn-fish oil 300 1 cap PO DAILY 06/17/22 06/03/25 H istory mg-1,000 mg capsule (Fish Oil) Hydrocortisone 2.5%/lidocaine 5% #30 ea 07/11/23 06/03/25 Rx suppository (cmpd) atorvastatin 10 mg tablet 10 mg PO DAILY 07/11/23 06/03/25 H istory cholecalciferol (vitamin D3) 75 50 mcg PO DAILY 07/11/23 06/03/25 History mcg (3,000 unit) tablet levothyroxine 25 mcg capsule 137 mcg PO DAILY 07/11/23 06/03/25 History loratadine 10 mg tablet (Claritin) 10 mg PO DAILY 07/11/23 06/03/25 History trazodone 50 mg tablet 50 mg PO QHS PRN insomnia 07/11/23 06/03/25 History escitalopram oxalate 20 mg tablet 20 mg PO DAILY 08/30/23 06/03/25 History Have you fallen in the past [...] upper, left low back pain Visit Number: 7 Details: Rachelle is a 69 year old female here to f/u with ongoing neck, upper back/shoulder blade, and left low back pain. She continues to complain of neck pain and stiffness that is worse on the right side. The pain extends down her trap under her right shoulder blade. She has been experiencing occasional headaches and rates her neck pain 4/10. She continues to c/o left low back/hip pain. She rates her low back pain 3/10. 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 Normal [facility] L3410.9992on 05-30-2025 [facility] Misc. COMMENT Normal . [facility] Comment on above: Order Comment: [id number] RF Result Comment: Test Ordered: [id number] Metanephrines, Fract. Urine Normetanephrine, Urine 278 ug/24 hr ES Reference Range: . This test was developed and its performance characteristics determined by [facility]. It has not been cleared or approved by the Food and Drug Administration. Reference Range: Adults: 110 - 720 Normetanephrine/Creat. Ratio 186 ug/g ES Reference Range: . Reference Range: Adults: 109 - 596 Metanephrine, Urine 109 ug/24 hr ES Reference Range: . This test was developed and its performance characteristics determined by [facility]. It has not been cleared or approved by the Food and Drug Administration. Reference Range: Adults: 35 - 278 Metanephrine/Creatinine Ratio 73 ug/g ES Reference Range: . Reference Range: Adults: 22 - 205 24 hr Creatinine, Urine 1489 mg/24 hr ES Reference Range: . Reference Range: Females: 800 - 1800 Creatinine, Urine 37 mg/dL ES Reference Range: . Performed at: [employer] [address] [place] [id number] Sticker On: Lew Castañeda MD, Phone: [phone] Performed at: [facility] [id number] Sticker On: Deshaun Hunter PhD, Phone: [phone] Performed By: #### L 3410.9992, L3600.5400, L502.000 #### [facility] Laboratory [address] [place], [address] L509.6001on 05-30-2025 CORTISOL 0.74 ug/dL Low 6.02-18.40 [facility] Comment on above: Performed By: #### L 3410.9992, L3600.5400, L502.000 #### [facility] Laboratory [address] [place], [address] Serum or plasma cortisol fidel surement (mass/volume)Ordered By: Jaciel Gavin on 05-30-2025 Cortisol [Mass/Vol] 0.74 ug/dL Low 6.02-18.40 [facility] NCS and/or EMG Patienton NCS and/or EMG Patient [facility] Pulmonary Services/Neurology [address] [place] [address] MR#: [id number] Acct: [id number] Name: RACHELLE BURGOS (LYNN) Rep #: [id number] : 1955 69 From: Arelis Frausto MD Referring Dr: Yonatan Courtney MD Status: REG CLI Location: [facility] Date: 05/29/25 Sex: F C NCS and/or EMG Patient Report Ordering Doctor: Yonatan Courtney DATE OF SERVICE: 05/29/25 Rachelle presents with complaints of tingling in both feet with occasional sharp pains. Electrodiagnostic findings: Left peroneal motor nerve demonstrates normal distal latency, amplitude and conduction velocity. Right peroneal motor response within normal limits. Decreased left tibial motor conduction velocity. Normal right tibial motor response. Borderline prolonged right sural latency. H???reflex bilaterally. Prolonged right tibial F???wave. Needle EMG testing was performed the lower limbs. All muscles tested showed no evidence of denervation with normal reaction potentials. Electrodiagnostic impression: This is an abnormal study in the lower limbs 1. 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 2. No electrodiagnostic evidence is noted for lumbosacral radiculopathy Multi Select Codes Neurology Neurology Interp Codes: 09798-62 Musc test done w/n test comp (interp) (2) and 66895-09 Nrv cndj test 9-10 studies (interp) 05/29/25 1410 Date Arelis Frausto MD CC: Dr. Arelis Frausto MD; Dr. Yonatan Courtney MD Date Dictated: 05/29/251406 Date Transcribed: 05/29/251406 Matrix Repairer: AA Signed Normal [facility] Cortisol, 24 HR UR Freeon CORTISOL,F/24hr 48 ug/24 hr High 6-42 [facility] Comment on above: Order Comment: Test( s) 053513-Hmjvuaew,F,ug/L,U was developed and its performance characteristics determined by [facility]. It has not been cleared or approved by the Food and Drug Administration. Result Comment: Perf ormed at: - [facility] [id number] Sticker On: Bennie Gilmore MD, Phone: [phone] Performed By: #### L 3410.9992, L3600.5400, L502.000 #### [facility] [address] [place], [place], [address] CORTISOL,U FREE 12 ug/L Normal Undefined [facility] Comment on above: Order Comment: Test( s) 504510-Nylnlevi,F,ug/L,U was developed and its performance characteristics determined by [facility]. It has not been cleared or approved by the Food and Drug Administration. Performed By: #### L 3410.9992, L3600.5400, L502.000 #### [facility] Laboratory [address] [place], [place], [address] Breast imaging reportOrdered By: Jeaneth Thakkar on 05-24-2025 Study report [facility] Imaging Services [address] [place], [place] [address] SCRN MAMM (CAD)W/REJI CORTEZ MR#: [id number] Acct: [id number] Name: RACHELLE BURGOS (LYNN) Rep #: [id number] : 1955 F 69 From: Eva Thakkar MD PCP: Dr. Yonatan Courtney MD Status: REG C LI Study:SCRN MAMM (CAD)W/REJI BILAT Date of Exa m: 05/24/25 Exam# [id number] Ordering Dr: Yonatan Courtney MD EXAM: SCRN MAMM (CAD)W/REJI BILAT DATE: [...] be mailed to the patient. Reading Location: [facility] CC: Dr. Yonatan Courtney MD ~ Matrix Repairer: Signed [facility] SCRN MAMM (CAD)W/REJI BILATo n 05-24-2025 SCRN MAMM (CAD)W/REJI BILAT [facility] Imaging Services [address] [place] [address] SCRN MAMM (CAD)W/REJI BILAT MR#: [id number] Acct: [id number] Name: RACHELLE BURGOS (LYNN) Rep #: [id number] : 1955 F 69 From: Jeaneth Thakkar MD PCP: Dr. Yonatan Courtney MD Status: REG CLI Study: SCRN MAMM (CAD)W/REJI BILAT Date of Exam: 05/14 12/08 Exam# [id number] Ordering Dr: Yonatan Courtney MD EXAM: SCRN MAMM (CAD)W/REJI BILAT DATE: [...] be mailed to the patient. Reading Location: [id number] CC: Dr. Yonatan Courtney MD Matrix Repairer: Signed Normal [facility] 24 HR Urine Creatinineon RANDOM UR TV 4000.0 ML Normal [facility] Comment on above: Performed By: #### L 3410.9992, L3600.5400, L502.000 #### [facility] Laboratory [address] [place], [address] UR.CREAT/24hr 1524.0 mg/24 hr Normal 740.0-1540. 0 [facility] Comment on above: Performed By: #### L 3410.9992, L3600.5400, L502.000 #### [facility] [address] [place], [address] URINE CREAT 38.10 mg/dL Normal 28.00-217.0 0 [facility] Comment on above: Performed By: #### L 3410.9992, L3600.5400, L502.000 #### [facility] Laboratory [address] [place], [address] 24 hour urine free cortisol measurement (mass/time)Ordered By: Jaciel Gavin on 05-22-2025 Cortisol Free (24H U) [Mass/Time] 48 ug/24 hr High 6-42 [facility] Comment on above: Performed at: [address] [id number] Director: Bennie Gilmore MD, Phone: [phone] Quantitative urine free karin isol measurement (mass/volume)Ordered By: Jaciel Gavin on 05-22-2025 Cortisol Free (U) [Mass/Vol] 12 ug/L Undefined [facility] Total urine volume measureme ntOrdered By: Jaciel Gavin on 05-22-2025 Specimen volume (U) 4000.0 ML [facility] Urine creatinine measurement (mass/volume)Ordered By: Jaciel Gavin on 05-22-2025 Creatinine (U) [Mass/Vol] 38.10 mg/dL 28.00-217.0 0 [facility] Chiropractic Reporton 2024 Chiropractic Report [facility] [address] [place] [address] OFFICE VISIT Date of Service: 05/06/25 MR#: [id number] Acct: [id number] Name: RACHELLE BURGOS (LYNN) Rep #: [id number] : 1955 Provider: GARCIA Roy Age/Sex: 69/F Location: [facility] [place] Status: Signed Intake Vital Signs 02/11/25 [...] PO DAILY arthritis 05/06/25 History mg tablet (glucosamine-chondroi tin) cinnamon bark 500 mg capsule 500 mg PO DAILY 06/17/22 05/06/25 History (Cinnamon) coenzyme Q10 100 mg capsule 100 mg PO DAILY 06/17/22 05/06/25 History (CoQ-10) magnesium 30 mg tablet 30 mg PO DAILY 06/17/22 05/06/25 H istory multivitamin 1 tab PO DAILY 06/17/22 05/06/25 H istory omega 6-bev-get-fish oil 300 1 cap PO DAILY 06/17/22 [...] you fallen in the past year?: No [facility] Medical History (Updated 05/06/25 @ 13:[address] 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 Normal [facility] .GFRon 04-29-2025 Estimated Glomerular Filtration Rate 95 ml/min/1.73sqm [facility] Comment on above: Result Comment: Stages [...] FR, FT4, VIDH, THYAB, CMP, TSH #### [address] [address] CMPon 04-29-2025 Albumin Level 4.1 G/dL Normal 3.2-4.[address] [facility] Comment on above: Performed By: #### G FR, FT4, VIDH, THYAB, CMP, TSH #### [place] [id number] Albumin/Globulin [Mass ratio] 1.6 {ratio} Normal 0.9-1.[address] [facility] Comment on above: Performed By: #### G FR, FT4, VIDH, THYAB, CMP, TSH #### [place] [id number] ALP [Catalytic activity/Vol] 63 U/L Normal 38-[address] [facility] Comment on above: Performed By: #### G FR, FT4, VIDH, THYAB, CMP, TSH #### [place] [id number] ALT [Catalytic activity/Vol] 18 U/L Normal 10-[address] [facility] Comment on above: Performed By: #### G FR, FT4, VIDH, THYAB, CMP, TSH #### [place] [id number] AST [Catalytic activity/Vol] 20 U/L Normal 8-[address] [facility] Comment on above: Performed By: #### G FR, FT4, VIDH, THYAB, CMP, TSH #### [place] [id number] Bili Total 0.70 mg/dL Normal 0.20-1.[address] [facility] Comment on above: Result Comment: Use of this assay is not recommended for patients undergoing treatment with eltrombopag due to the potential for falsely elevated results. Performed By: #### G FR, FT4, VIDH, THYAB, CMP, TSH #### [address] [address] BUN/Creatinine Ratio 22.9 ratio High 10.0-22.0 [facility] Comment on above: Performed By: #### G FR, FT4, VIDH, THYAB, CMP, TSH #### [address] [address] Calcium [Mass/Vol] 8.8 mg/dL Normal 8.7-10.4 [facility] Comment on above: Performed By: #### G FR, FT4, VIDH, THYAB, CMP, TSH #### [place] [id number] Chloride [Moles/Vol] 105 mmol/L Normal 98-110 [facility] MAIN Comment on above: Performed By: #### G FR, FT4, VIDH, THYAB, CMP, TSH #### [place] [id number] CO2 [Moles/Vol] 26 mmol/L Normal 22-[address] [facility] MAIN Comment on above: Performed By: #### G FR, FT4, VIDH, THYAB, CMP, TSH #### [place] [id number] Creatinine [Mass/Vol] 0.70 mg/dL Normal 0.50-1.20 [facility] MAIN Comment on above: Result Comment: Test ing performed on 170 Systems analyzer using enzymatic creatinine methodology. Performed By: #### G FR, FT4, VIDH, THYAB, CMP, TSH #### [place] [id number] Electrolyte Balance 8.0 mEq/L Normal 4.0-15.0 [facility] MAIN Comment on above: Performed By: #### G FR, FT4, VIDH, THYAB, CMP, TSH #### [place] [id number] Globulin 2.6 G/dL Normal 2.5-4.[address] [facility] MAIN Comment on above: Performed By: #### G FR, FT4, VIDH, THYAB, CMP, TSH #### [address] [address] Glucose [Mass/Vol] 103 mg/dL Normal 82-115 [facility] MAIN Comment on above: Performed By: #### G FR, FT4, VIDH, THYAB, CMP, TSH #### [address] [address] Potassium [Moles/Vol] 3.9 mmol/L Normal 3.5-5.0 [facility] MAIN Comment on above: Performed By: #### G FR, FT4, VIDH, THYAB, CMP, TSH #### [address] [address] Sodium [Moles/Vol] 139 mmol/L Normal 136-145 [facility] MAIN Comment on above: Performed By: #### G FR, FT4, VIDH, THYAB, CMP, TSH #### [address] [address] Total Protein 6.7 G/dL Normal 5.7-8.[address] [facility] MAIN Comment on above: Performed By: #### G FR, FT4, VIDH, THYAB, CMP, TSH #### [address] [address] Urea nitrogen [Mass/Vol] 16.0 mg/dL Normal 8.0-22.[address] [facility] MAIN Comment on above: Performed By: #### G FR, FT4, VIDH, THYAB, CMP, TSH #### [address] [address] FT4on 04-29-2025 Free T4 [Mass/Vol] 1.55 ng/dL Normal 0.89-1.76 [facility] MAIN Comment on above: Result Comment: No te - New Reference Range in effect 20 Performed By: #### G FR, FT4, VIDH, THYAB, CMP, TSH #### [address] [address] THYABon 04-29-2025 anti-Thyroid Peroxidase 3584 units/ml High 0-[address] [facility] MAIN Comment on above: Performed By: #### G FR, FT4, VIDH, THYAB, CMP, TSH #### [facility] [address] [place] [address] Thyroglobulin Ab 305 units/ml High 15-60 [facility] MAIN Comment on above: Performed By: #### G FR, FT4, VIDH, THYAB, CMP, TSH #### [facility] [address] [place] [address] TSHon 04-29-2025 TSH 1.297 mIU/mL Normal 0.550-4.[address] [facility] MAIN Comment on above: Performed By: #### G FR, FT4, VIDH, THYAB, CMP, TSH #### [place] [id number] [place] [address] VIDHon 04-29-2025 Vit. D 25-Hydroxy 40.1 ng/mL Normal [facility] MAIN Comment on above: Result Comment: Inte rpretive Values Based on Total 25(OH)D: Severe Deficiency <20 ng/mL Mild to Moderate Deficiency 20-30 ng/mL Optimum Levels 30-100 ng/mL Toxicity Possible >100 ng/mL Performed By: #### G FR, FT4, VIDH, THYAB, CMP, TSH #### [place] [address] Chiropractic Reporton 2024 Chiropractic Report [facility] [address] [place] [address] OFFICE VISIT Date of Service: 04/09/25 MR#: [id number] Acct: [id number] Name: RACHELLE BURGOSTaeKIMBERLEY ASH Rep #: [id number] : 1955 Provider: GARCIA Roy Age/Sex: 69/F Location: [facility] [place] Status: Signed Intake Vital Signs 02/11/25 [...] PO DAILY arthritis 04/09/25 History mg tablet (glucosamine-chondroi tin) cinnamon bark 500 mg capsule 500 mg PO DAILY 06/17/22 04/09/25 History (Cinnamon) coenzyme Q10 100 mg capsule 100 mg PO DAILY 06/17/22 04/09/25 History (CoQ-10) magnesium 30 mg tablet 30 mg PO DAILY 06/17/22 04/09/25 H istory multivitamin 1 tab PO DAILY 06/17/22 04/09/25 H istory omega 8-wxi-dyz-fish oil 300 1 cap PO DAILY 06/17/22 [...] to ins (more content not included)... Normal [facility] Hemoglobin A1c percentageOrd ered By: Yonatan Courtney on 03-29-2025 HbA1c (Bld) [Mass fraction] 5.8 % High <=5.6 [facility] Comment on above: Normal < 5.7 % Predi abetic 5.7 - 6.4 % Diabetic >or= 6.5 % Please note range changes. Result Comment: Norm al < 5.7 % Prediabetic 5.7 - 6.4 % Diabetic >or= 6.5 % Please note range changes. Performed By: #### L 501.9420 #### [facility] Laboratory [address] [place], [place], [id number] Anion gap in Serum or Plasma Ordered By: Yonatan Courtney on 03-22-2025 Anion gap [Moles/Vol] 10 mmol/L 5-15 [facility] BUN/creatinine ratioOrdered By: Yonatan Courtney on 03-22-2025 Urea nitrogen/Creatinine [Mass ratio] 22.1 mg/mg High 10-20 [facility] Bilirubin, totalOrdered By: Yonatan Courtney on 03-22-2025 Bilirubin [Mass/Vol] 0.44 mg/dL 0.00-1.30 [facility] Calculated very low density lipoprotein (VLDL) cholesterol measurementOrdered By: Yonatan Courtney on 03-22-2025 Calculated very low density lipoprotein (VLDL) cholesterol measurement 20 mg/dL 5-40 [facility] Carbon dioxide, total [Moles /volume] in Central venous bloodOrdered By: Yonatan Courtney on 03-22-2025 CO2 [Moles/Vol] 25.8 mmol/L 21.0-32.0 [facility] Chloride assayOrdered By: Suresh Courtney on 03-22-2025 Chloride [Moles/Vol] 103 mmol/L 98-108 [facility] Comprehensive Metabolic Prof ilon 03-22-2025 Albumin [Mass/Vol] 4.4 g/dL Normal 3.4-4.8 [facility] Comment on above: Performed By: #### L 500.4050, L506.0400, L500.4100, L501.9520, L501.17147 #### [facility] [address] [place], [address] Albumin/Globulin [Mass ratio] 1.8 {ratio} Normal 0.9-2.4 [facility] Comment on above: Performed By: #### L 500.4050, L506.0400, L500.4100, L501.9520, L501.97729 #### [facility] [address] [place], [address] ALK PHOS 66 U/L Normal 35-104 [facility] Comment on above: Performed By: #### L 500.4050, L506.0400, L500.4100, L501.9520, L501.14130 #### [facility] [address] [place], [address] ALT [Catalytic activity/Vol] 19 U/L Normal <=34 [facility] Comment on above: Performed By: #### L 500.4050, L506.0400, L500.4100, L501.9520, L501.21315 #### [facility] [address] [place], [address] AST [Catalytic activity/Vol] 21 U/L Normal <=31 [facility] Comment on above: Performed By: #### L 500.4050, L506.0400, L500.4100, L501.9520, L501.76148 #### [facility] [address] [place], [address] Bilirubin [Mass/Vol] 0.44 mg/dL Normal 0.00-1.30 [facility] Comment on above: Performed By: #### L 500.4050, L506.0400, L500.4100, L501.9520, L501.09415 #### [facility] [address] [place], [address] BUN/CRE 22.1 RATIO High 10-20 [facility] Comment on above: Performed By: #### L 500.4050, L506.0400, L500.4100, L501.9520, L501.87880 #### [facility] [address] [place], [address] Calcium [Mass/Vol] 9.4 mg/dL Normal 7.6-11.0 [facility] Comment on above: Performed By: #### L 500.4050, L506.0400, L500.4100, L501.9520, L501.68082 #### [facility] [address] [place], [address] Chloride [Moles/Vol] 103 mmol/L Normal 98-108 [facility] Comment on above: Performed By: #### L 500.4050, L506.0400, L500.4100, L501.9520, L501.73768 #### [facility] [address] [place], [address] CO2 [Moles/Vol] 25.8 mmol/L Normal 21.0-32.0 [facility] Comment on above: Performed By: #### L 500.4050, L506.0400, L500.4100, L501.9520, L501.89200 #### [facility] [address] [place], [address] Creatinine [Mass/Vol] 0.86 mg/dL Normal 0.70-1.20 [facility] Comment on above: Performed By: #### L 500.4050, L506.0400, L500.4100, L501.9520, L501.47700 #### [facility] [address] [place], [address] GAP 10 Normal 5-15 [facility] Comment on above: Performed By: #### L 500.4050, L506.0400, L500.4100, L501.9520, L501.49342 #### [facility] [address] [place], [address] GFR/1.73 sq M.predicted among non-blacks MDRD (S/P/Bld) [Vol rate/Area] 74 mL/min/{1.73_m2} Normal >60 [facility] Comment on above: Result Comment: mL/m in/1.73m2 CKD-EPI Creatinine Equation (2020) Performed By: #### L 500.4050, L506.0400, L500.4100, L501.9520, L501.94976 #### [facility] [address] [place], [address] Globulin (S) [Mass/Vol] 2.4 g/dL Normal 2.2-4.2 [facility] Comment on above: Performed By: #### L 500.4050, L506.0400, L500.4100, L501.9520, L501.39061 #### [facility] [address] [place], [address] Glucose [Mass/Vol] 120 mg/dL High 70-99 [facility] Comment on above: Performed By: #### L 500.4050, L506.0400, L500.4100, L501.9520, L501.20457 #### [facility] [address] [place], [address] Potassium [Moles/Vol] 4.2 mmol/L Normal 3.3-5.1 [facility] Comment on above: Performed By: #### L 500.4050, L506.0400, L500.4100, L501.9520, L501.46719 #### [facility] [address] [place], [address] Sodium [Moles/Vol] 138 mmol/L Normal 133-145 [facility] Comment on above: Performed By: #### L 500.4050, L506.0400, L500.4100, L501.9520, L501.91662 #### [facility] [address] [place], [address] T PROT 6.9 g/dL Normal 5.9-8.4 [facility] Comment on above: Performed By: #### L 500.4050, L506.0400, L500.4100, L501.9520, L501.51981 #### [facility] [address] [place], [address] Urea nitrogen [Mass/Vol] 19 mg/dL Normal 4-19 [facility] Comment on above: Performed By: #### L 500.4050, L506.0400, L500.4100, L501.9520, L501.64501 #### [facility] [address] [place], [address] Free T3on 03-22-2025 Free T3 [Mass/Vol] 2.1 pg/mL Low 2.18-3.98 [facility] Comment on above: Performed By: #### L 500.4050, L506.0400, L500.4100, L501.9520, L501.58935 #### [facility] [address] [place], [address] Free S8Uudrxrz By: Yonatan marquez on 03-22-2025 Free T3 [Mass/Vol] 2.1 pg/mL Low 2.18-3.98 [facility] Glomerular filtration rate ( GFR) estimation/1.73 sq m using serum, plasma, or whole bOrdered By: Yonatan Courtney on 03-22-2025 GFR/1.73 sq M.predicted among non-blacks MDRD (S/P/Bld) [Vol rate/Area] 74 mL/min/{1.73_m2} >60 [facility] Comment on above: mL/min/1.73m2 CKD-EP I Creatinine Equation (2020) LDL calc ser/plasOrdered By: Yonatan Courtney on 03-22-2025 Cholesterol in LDL [Mass/Vol] 118 mg/dL [facility] Comment on above: Kymrphhvbu=079-170 m g/dL & Higher Fody=178 mg/dL or greater Laboratory - Chemistry and C hemistry - challengeOrdered By: Yonatan Courtney on 03-22-2025 AST [Catalytic activity/Vol] 21 U/L <32 [facility] Lipid Profileon 03-22-2025 CHOL:HDL 3.26 Normal [facility] Comment on above: Performed By: #### L 500.4050, L506.0400, L500.4100, L501.9520, L501.66302 #### [facility] [address] [place], [address] Cholesterol [Mass/Vol] 199 mg/dL Normal <=200 [facility] Comment on above: Result Comment: Chol esterol level, Desirable <200 mg/dL Borderline high cholesterol 200-239 mg/dL High cholesterol >=240 mg/dL Recommendations of the NCEP Adult Treatment Panel for the following risk-cutoff thresholds for the [place] population. Performed By: #### L 500.4050, L506.0400, L500.4100, L501.9520, L501.75555 #### [facility] [address] [place], [address] Cholesterol in HDL [Mass/Vol] 61 mg/dL Normal [facility] Comment on above: Result Comment: Rafia onal Cholesterol Education Program (NCEP) guidelines: <40 mg/dL: Low HDL-cholesterol (major risk factor for CHD) >= 60 mg/dL: High HDL-cholesterol (negative risk factor for CHD) HDL-cholesterol is affected by a number of factors, e.g. smoking, exercise, hormones, sex and age. Performed By: #### L 500.4050, L506.0400, L500.4100, L501.9520, L501.47242 #### [facility] [address] [place], [address] Cholesterol in LDL [Mass/Vol] 118 mg/dL Normal [facility] Comment on above: Result Comment: Bord ulbjdg=978-730 mg/dL Higher Mzzh=726 mg/dL or greater Performed By: #### L 500.4050, L506.0400, L500.4100, L501.9520, L501.44849 #### [facility] [address] [place], [address] Cholesterol in VLDL [Mass/Vol] 20 mg/dL Normal 5-40 [facility] Comment on above: Performed By: #### L 500.4050, L506.0400, L500.4100, L501.9520, L501.81815 #### [facility] [address] [place], [address] Triglyceride [Mass/Vol] 98 mg/dL Normal [facility] Comment on above: Result Comment: The drugs N-Acetylcysteine and Metamizole may falsely depress this assay. Normal range: <150 mg/dL Borderline High: 150-199 mg/dL High: 200-499 mg/dL Very High: >500 mg/dL Performed By: #### L 500.4050, L506.0400, L500.4100, L501.9520, L501.72318 #### [facility] [address] [facility] [place], [address] Potassium measurement (mass/ volume)Ordered By: Yonatan Courtney on 03-22-2025 Potassium (Unsp spec) [Mass/Vol] 4.2 mmol/L 3.3-5.1 [facility] Screening total cholesterol/ high density lipoprotein (HDL) cholesterol ratioOrdered By: Yonatan Courtney on 03-22-2025 Cholesterol.total/Magalie sterol in HDL [Mass ratio] 3.26 {ratio} [facility] Serum creatinine measurement (mass/volume)Ordered By: Yonatan Courtney on 03-22-2025 Creatinine [Mass/Vol] 0.86 mg/dL 0.70-1.20 [facility] Serum globulin measurementOr dered By: Yonatan Courtney on 03-22-2025 Globulin (S) [Mass/Vol] 2.4 g/dL 2.2-4.2 [facility] Serum glucose measurement (m ass/volume)Ordered By: Yonatan Courtney on 03-22-2025 Glucose [Mass/Vol] 120 mg/dL High 70-99 [facility] Serum or plasma alanine samson otransferase (ALT) measurementOrdered By: Yonatan Courtney on 03-22-2025 ALT [Catalytic activity/Vol] 19 U/L <35 [facility] Serum or plasma albumin annabel urement (mass/volume)Ordered By: Yonatan Courtney on 03-22-2025 Albumin [Mass/Vol] 4.4 g/dL 3.4-4.8 [facility] Serum or plasma albumin/glob ulin mass ratioOrdered By: Yonatan Courtney on 03-22-2025 Albumin/Globulin [Mass ratio] 1.8 {ratio} 0.9-2.4 [facility] Serum or plasma alkaline katelynn sphatase measurementOrdered By: Yonatan Courtney on 03-22-2025 ALP [Catalytic activity/Vol] 66 U/L 35-104 [facility] Serum or plasma calcium annabel urement (mass/volume)Ordered By: Yonatan Courtney on 03-22-2025 Calcium [Mass/Vol] 9.4 mg/dL 7.6-11.0 [facility] Serum or plasma cholesterol in HDL measurement (mass/volume)Ordered By: Yonatan Courtney on 03-22-2025 Cholesterol in HDL [Mass/Vol] 61 mg/dL >40 [facility] Comment on above: National Cholesterol Education Program (NCEP) guidelines:<40 mg/dL: Low HDL-cholesterol (major risk factor for CHD)>= 60 mg/dL: High HDL-cholesterol (negative risk factor for CHD)HDL-cholesterol is affected by a number of factors, e.g. smoking, exercise, hormones, sex and age. Serum or plasma cholesterol measurement (mass/volume)Ordered By: Yonatan Courtney on 03-22-2025 Cholesterol [Mass/Vol] 199 mg/dL <201 [place] Comment on above: Cholesterol level, D esirable <200 mg/dLBorderline high cholesterol 200-239 mg/dLHigh cholesterol >=240 mg/dLRecommendations of the NCEP Adult Treatment Panel for the following risk-cutoff thresholds for the [place] population. Serum or plasma urea nitroge n measurement (mass/volume)Ordered By: Yonatan Courtney on 03-22-2025 Urea nitrogen [Mass/Vol] 19 mg/dL 4-19 [facility] Sodium levelOrdered By: Yonatan Courtney on 03-22-2025 Sodium [Moles/Vol] 138 mmol/L 133-145 [facility] T4 Free Directon 03-22-2025 T4 FREE DIRECT 1.40 ng/dL Normal 0.76-1.46 [facility] Comment on above: Performed By: #### L 500.4050, L506.0400, L500.4100, L501.9520, L501.65071 ####[facility] [address] [place], [place], [id number] T4 freeOrdered By: Yonatan marquez on 03-22-2025 Free T4 [Mass/Vol] 1.40 ng/dL 0.76-1.46 [facility] TSH DL <= 0.005 mIU/L QnOrde red By: Yonatan Courtney on 03-22-2025 TSH Qn 3.870 uIU/mL 0.300-4.200 [facility] Thyroid Stim Hormone (TSH)on 03-22-2025 TSH 3.870 uIU/mL Normal 0.300-4.200 [facility] Comment on above: Performed By: #### L 500.4050, L506.0400, L500.4100, L501.9520, L501.49467 #### [facility] [address] [place], [place], [id number] Total proteinOrdered By: Zahra Courtney on 03-22-2025 Protein [Mass/Vol] 6.9 g/dL 5.9-8.4 [facility] Triglycerides measurementOrd ered By: Yonatan Courtney on 03-22-2025 Triglyceride [Mass/Vol] 98 mg/dL <199 [facility] Comment on above: The drugs N-Acetylcy steine and Metamizole may falsely depress this assay. Normal range: <150 mg/dLBorderline High: 150-199 mg/dLHigh: 200-499 mg/dLVery High: >500 mg/dL Chiropractic Reporton 2024 Chiropractic Report [facility] [place] [address] OFFICE VISIT Date of Service: 03/11/25 MR#: [id number] Acct: [id number] Name: RACHELLE BURGOS (LYNN) Rep #: [id number] : 1955 Provider: GARCIA Roy Age/Sex: 69/F Location: [facility] [place] Status: Signed Intake Vital Signs 09/03/24 [...] PO DAILY arthritis 03/11/25 History mg tablet (glucosamine-chondroi tin) cinnamon bark 500 mg capsule 500 mg PO DAILY 06/17/22 03/11/25 History (Cinnamon) coenzyme Q10 100 mg capsule 100 mg PO DAILY 06/17/22 03/11/25 History (CoQ-10) magnesium 30 mg tablet 30 mg PO DAILY 06/17/22 03/11/25 H istory multivitamin 1 tab PO DAILY 06/17/22 03/11/25 H istory omega 9-erp-nvw-fish oil 300 1 cap PO DAILY 06/17/22 [...] diffuse trap (more content not included)... Normal [facility] Chiropractic Reporton 2024 Chiropractic Report [facility] [address] [place] [address] OFFICE VISIT Date of Service: 02/11/25 MR#: [id number] Acct: [id number] Name: RACHELLE BURGOS (LYNN) Rep #: [id number] : 1955 Provider: GARCIA Roy Age/Sex: 69/F Location: [facility] [place] Status: Signed Intake Vital Signs 09/03/24 18:51 [...] PO DAILY arthritis 02/11/25 History mg tablet (glucosamine-chondroi tin) cinnamon bark 500 mg capsule 500 mg PO DAILY 06/17/22 02/11/25 History (Cinnamon) coenzyme Q10 100 mg capsule 100 mg PO DAILY 06/17/22 02/11/25 History (CoQ-10) magnesium 30 mg tablet 30 mg PO DAILY 06/17/22 02/11/25 H istory multivitamin 1 tab PO DAILY 06/17/22 02/11/25 H istory omega 6-jbd-rgp-fish oil 300 1 cap PO DAILY 06/17/22 [...] She states 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 She complains of low back pain that [...] muscles, Ye (more content not included)... Normal [facility] Chiropractic Reporton 2024 Chiropractic Report [facility] [address] [place] [address] OFFICE VISIT Date of Service: 01/10/25 MR#: [id number] Acct: [id number] Name: RACHELLE BURGOS Rep #: [id number] : 1955 Provider: GARCIA Roy Age/Sex: 69/F Location: [facility] [place] Status: Signed Intake Vital Signs 09/03/24 [...] PO DAILY arthritis 01/10/25 History mg tablet (glucosamine-chondroi tin) cinnamon bark 500 mg capsule 500 mg PO DAILY 06/17/22 01/10/25 History (Cinnamon) coenzyme Q10 100 mg capsule 100 mg PO DAILY 06/17/22 01/10/25 History (CoQ-10) magnesium 30 mg tablet 30 mg PO DAILY 06/17/22 01/10/25 H istory multivitamin 1 tab PO DAILY 06/17/22 01/10/25 H istory omega 5-ozt-iqd-fish oil 300 1 cap PO DAILY 06/17/22 [...] you fallen in the past year?: No [facility] History Acute sinusitis, unspecified Hemorrhoids Degenerative [...] than rig (more content not included)... Normal [facility] Albumin to globulin ratioOrd ered By: Yonatan Courtney on 12-17-2024 Albumin/Globulin [Mass ratio] 1.1 {ratio} 0.9-2.4 [facility] Bilirubin, totalOrdered By: Yonatan Courtney on 12-17-2024 Bilirubin [Mass/Vol] 0.50 mg/dL 0.20-1.00 [facility] Comment on above: For patients on eltr ombopag therapy, use of Dimension Adolphus TBIL is not recommended. Blood urea nitrogen (BUN)/cr eatinine ratioOrdered By: Yonatan Courtney on 12-17-2024 Urea nitrogen/Creatinine [Mass ratio] 25.5 mg/mg High 10-20 [facility] Carbon dioxide measurementOr dered By: Yonatan Courtney on 12-17-2024 CO2 [Moles/Vol] 26.0 mmol/L 21.0-32.0 [facility] Chloride measurementOrdered By: Yonatan Courtney on 12-17-2024 Chloride [Moles/Vol] 108 mmol/L High 98-107 [facility] Comprehensive Metabolic Prof ilon 12-17-2024 Albumin [Mass/Vol] 3.6 g/dL Normal 3.2-5.0 [facility] Comment on above: Performed By: #### L 506.0400, L501.32631, L500.4050, L501.9520 ####[facility] [id number] [place], [place], [id number] Albumin/Globulin [Mass ratio] 1.1 {ratio} Normal 0.9-2.4 [facility] Comment on above: Performed By: #### L 506.0400, L501.33836, L500.4050, L501.9520 ####[facility] [address] [place], [address] ALK P 69 U/L Normal 45-117 [facility] Comment on above: Performed By: #### L 506.0400, L501.25876, L500.4050, L501.9520 ####[facility] [address] [place], [address] ALT [Catalytic activity/Vol] 25 U/L Normal 13-56 [facility] Comment on above: Performed By: #### L 506.0400, L501.86036, L500.4050, L501.9520 ####[facility] [address] [place], [address] AST [Catalytic activity/Vol] 13 U/L Low 15-37 [facility] Comment on above: Performed By: #### L 506.0400, L501.13239, L500.4050, L501.9520 ####[facility] [address] [place], [address] Bilirubin [Mass/Vol] 0.50 mg/dL Normal 0.20-1.00 [facility] Comment on above: Result Comment: For patients on eltrombopag therapy, use of Dimension [employer] TBIL is not recommended. Performed By: #### L 506.0400, L501.14273, L500.4050, L501.9520 ####[facility] [address] [place], [address] BUN/CRE 25.5 RATIO High 10-20 [facility] Comment on above: Performed By: #### L 506.0400, L501.18691, L500.4050, L501.9520 ####[facility] [address] [place], [address] CA,Total 8.8 mg/dL Normal 8.5-10.1 [facility] Comment on above: Performed By: #### L 506.0400, L501.96283, L500.4050, L501.9520 ####[facility] [address] [place], [address] Chloride [Moles/Vol] 108 mmol/L High 98-107 [facility] Comment on above: Performed By: #### L 506.0400, L501.63341, L500.4050, L501.9520 ####[facility] [address] [place], [address] CO2 [Moles/Vol] 26.0 mmol/L Normal 21.0-32.0 [facility] Comment on above: Performed By: #### L 506.0400, L501.95030, L500.4050, L501.9520 ####[facility] [address] [place], [address] Creatinine [Mass/Vol] 0.74 mg/dL Normal 0.55-1.02 [facility] Comment on above: Result Comment: The validity of the calculated GFR GFRAA in patients over 70 years has not been determined. Clinical correlation is essential. Performed By: #### L 506.0400, L501.46224, L500.4050, L501.9520 ####[facility] [address] [place], [address] EST GFR - AA 100 mL/min Normal >60 [facility] Comment on above: Result Comment: Afri can Sammarinese GFR Calc Performed By: #### L 506.0400, L501.03188, L500.4050, L501.9520 ####[facility] [address] [place], [address] GAP 7 Normal 5-15 [facility] Comment on above: Performed By: #### L 506.0400, L501.05769, L500.4050, L501.9520 ####[facility] [address] [place], [address] GFR/1.73 sq M.predicted among non-blacks MDRD (S/P/Bld) [Vol rate/Area] 82 mL/min/{1.73_m2} Normal >60 [facility] Comment on above: Result Comment: Non- GFR Calc Performed By: #### L 506.0400, L501.09454, L500.4050, L501.9520 ####[facility] [address] [place], [address] Globulin (S) [Mass/Vol] 3.4 g/dL Normal 2.2-4.2 [facility] Comment on above: Performed By: #### L 506.0400, L501.08381, L500.4050, L501.9520 ####[facility] [address] [place], [address] Glucose [Mass/Vol] 118 mg/dL High 74-106 [facility] Comment on above: Result Comment: Fast ing Glucose result from 100 to 125 mg/dL suggests IMPAIRED HOMEOSTASIS per A.D.A. criteria. Performed By: #### L 506.0400, L501.77459, L500.4050, L501.9520 ####[facility] [address] [place], [address] Potassium [Moles/Vol] 4.0 mmol/L Normal 3.5-5.1 [facility] Comment on above: Performed By: #### L 506.0400, L501.41447, L500.4050, L501.9520 ####[facility] [address] [place], [address] Sodium [Moles/Vol] 141 mmol/L Normal 136-145 [facility] Comment on above: Performed By: #### L 506.0400, L501.59113, L500.4050, L501.9520 ####[facility] [address] [place], [address] T PROT 7.0 g/dL Normal 6.4-8.2 [facility] Comment on above: Performed By: #### L 506.0400, L501.34096, L500.4050, L501.9520 ####[facility] [address] [place], [place], [id number] Urea nitrogen [Mass/Vol] 19 mg/dL High 7-18 [facility] Comment on above: Performed By: #### L 506.0400, L501.93582, L500.4050, L501.9520 ####[facility] [address] [place], [place], [id number] Direct serum free thyroxine (FT4) measurementOrdered By: Yonatan Courtney on 12-17-2024 Free T4 [Mass/Vol] 1.13 ng/dL 0.76-1.46 [facility] Free T3on 12-17-2024 Free T3 [Mass/Vol] 2.5 pg/mL Normal 2.18-3.98 [facility] Comment on above: Performed By: #### L 506.0400, L501.71033, L500.4050, L501.9520 ####[facility] [address] [place], [place], [id number] Free F0Sgdqezg By: Yonatan marquez on 12-17-2024 Free T3 [Mass/Vol] 2.5 pg/mL 2.18-3.98 [facility] Glomerular filtration rate ( GFR) estimationOrdered By: Yonatan Courtney on 12-17-2024 GFR/1.73 sq M.predicted among non-blacks MDRD (S/P/Bld) [Vol rate/Area] 82 mL/min/{1.73_m2} >60 [facility] Comment on above: Non- GFR Calc Glucose measurementOrdered B y: Yonatan Courtney on 12-17-2024 Glucose [Mass/Vol] 118 mg/dL High 74-106 [facility] Comment on above: Fasting Glucose resu lt from 100 to 125 mg/dL suggests IMPAIRED HOMEOSTASIS per A.D.A. criteria. Laboratory - Chemistry and C hemistry - challengeOrdered By: Yonatan Courtney on 12-17-2024 AST [Catalytic activity/Vol] 13 U/L Low 15-37 [facility] Potassium measurementOrdered By: Yonatan Courtney on 12-17-2024 Potassium [Moles/Vol] 4.0 mmol/L 3.5-5.1 [facility] Serum anion gap measurementO rdered By: Yonatan Courtney on 12-17-2024 Anion gap [Moles/Vol] 7 mmol/L 5-15 [facility] Serum globulin measurementOr dered By: Yonatan Courtney on 12-17-2024 Globulin (S) [Mass/Vol] 3.4 g/dL 2.2-4.2 [facility] Serum or plasma alanine samson otransferase (ALT) measurementOrdered By: Yonatan Courtney on 12-17-2024 ALT [Catalytic activity/Vol] 25 U/L 13-56 [facility] Serum or plasma albumin annabel urement (mass/volume)Ordered By: Yonatan Courtney on 12-17-2024 Albumin [Mass/Vol] 3.6 g/dL 3.2-5.0 [facility] Serum or plasma alkaline katelynn sphatase measurementOrdered By: Yonatan Courtney on 12-17-2024 ALP [Catalytic activity/Vol] 69 U/L 45-117 [facility] Serum or plasma calcium annabel urement (mass/volume)Ordered By: Yonatan Courtney on 12-17-2024 Calcium [Mass/Vol] 8.8 mg/dL 8.5-10.1 [facility] Serum or plasma creatinine m easurement (mass/volume)Ordered By: Yonatan Courtney on 12-17-2024 Creatinine [Mass/Vol] 0.74 mg/dL 0.55-1.02 [facility] Comment on above: The validity of the calculated GFR & GFRAA in patients over 70 years has not been determined. Clinical correlation is essential. Serum or plasma thyroid stim ulating hormone (TSH) measurement (units/volume)Ordered By: Yonatan Courtney on 12-17-2024 TSH Qn 1.020 uIU/mL 0.358-3.740 [facility] Serum or plasma urea nitroge n measurement (mass/volume)Ordered By: Yonatan Courtney on 12-17-2024 Urea nitrogen [Mass/Vol] 19 mg/dL High 7-18 [facility] Sodium levelOrdered By: Yonatan Courtney on 12-17-2024 Sodium [Moles/Vol] 141 mmol/L 136-145 [facility] T4 Free Directon 12-17-2024 T4 FREE DIRECT 1.13 ng/dL Normal 0.76-1.46 [facility] Comment on above: Performed By: #### L 506.0400, L501.72647, L500.4050, L501.9520 ####[facility] [address] [place], [place], [id number] Thyroid Stim Hormone (TSH)on 12-17-2024 TSH 1.020 uIU/mL Normal 0.358-3.740 [facility] Comment on above: Performed By: #### L 506.0400, L501.78052, L500.4050, L501.9520 ####[facility] [address] [place], [place], [id number] Total proteinOrdered By: Zahra Courtney on 12-17-2024 Protein [Mass/Vol] 7.0 g/dL 6.4-8.2 [facility] Chiropractic Reporton 2024 Chiropractic Report [facility] [address] [place] [id number] OFFICE VISIT Date of Service: 11/26/24 MR#: [id number] Acct: [id number] Name: RACHELLE BURGOS Rep #: [id number] : 1955 Provider: GARCIA Roy Age/Sex: 69/F Location: [facility] [place] Status: Signed Intake Vital Signs 09/03/24 18:51 [...] DAILY arthritis 06/17/22 11/26/24 History mg tablet (glucosamine-chondroi tin) cinnamon bark 500 mg capsule 500 mg PO DAILY 06/17/22 11/26/24 History (Cinnamon) coenzyme Q10 100 mg capsule 100 mg PO DAILY 06/17/22 11/26/24 History (CoQ-10) magnesium 30 mg tablet 30 mg PO DAILY 06/17/22 11/26/24 History multivitamin 1 tab PO DAILY 06/17/22 11/26/24 History omega 4-ztz-mvi-fish oil 300 1 cap PO DAILY 06/17/22 [...] paraspinal tenderne (more content not included)... Normal [facility] Chiropractic Reporton 12-16- 2024 Chiropractic Report [facility] [place] [address] OFFICE VISIT Date of Service: 10/29/24 MR#: [id number] Acct: [id number] Name: RACHELLE BURGOS Rep #: [id number] : 1955 Provider: GARCIA Roy Age/Sex: 69/F Location: [facility] [place] Status: Signed Intake Vital Signs 05/21/24 [...] DAILY arthritis 06/17/22 09/03/24 History mg tablet (glucosamine-chondroi tin) cinnamon bark 500 mg capsule 500 mg PO DAILY 06/17/22 09/03/24 History (Cinnamon) coenzyme Q10 100 mg capsule 100 mg PO DAILY 06/17/22 09/03/24 History (CoQ-10) magnesium 30 mg tablet 30 mg PO DAILY 06/17/22 09/03/24 History multivitamin 1 tab PO DAILY 06/17/22 09/03/24 History omega 2-pcu-lav-fish oil 300 1 cap PO DAILY 06/17/22 [...] lumbar spi (more content not included)... Normal [facility] Chiropractic Reporton 2023 Chiropractic Report [facility] [address] [place] [address] OFFICE VISIT Date of Service: 10/01/24 MR#: [id number] Acct: [id number] Name: RACHELLE BURGOS Rep #: [id number] : 1955 Provider: GARCIA Roy Age/Sex: 69/F Location: [facility] [place] Status: Signed Intake Vital Signs 05/21/24 11:11 [...] you fallen in the past year?: No [facility] Medical History Acute sinusitis, unspecified Hemorrhoids [...] on the left greater than right (upper thoracic,lumbopelvic) , Yes thoraco-lumbar spasm on the left greater [...] positive Dry Needling Patient Position: Prone Patient Instructions/Consent: Patient instructed not to move and informed [...] applied to areas if needed. Needle Number: [id number] Minutes: 20 Therapy Performed by: Dr. Washington (more content not included)... Normal [facility] Basic Metabolic Profile (BMP )on 09-10-2024 BUN/CRE 18.0 RATIO Normal - [facility] Comment on above: Order Comment: N Performed By: #### L 3410.9992, L3600.5400, L502.000 #### [facility] [address] [place], [address] CA,Total 8.7 mg/dL Normal 8.5-10.1 [facility] Comment on above: Order Comment: N Performed By: #### L 3410.9992, L3600.5400, L502.000 #### [facility] [address] [place], [address] Chloride [Moles/Vol] 106 mmol/L Normal 98-107 [facility] Comment on above: Order Comment: N Performed By: #### L 3410.9992, L3600.5400, L502.000 #### [facility] [address] [place], [address] CO2 [Moles/Vol] 28.0 mmol/L Normal 21.0-32.0 [facility] Comment on above: Order Comment: N Performed By: #### L 3410.9992, L3600.5400, L502.000 #### [facility] [address] [place], [address] Creatinine [Mass/Vol] 0.78 mg/dL Normal 0.55-1.02 [facility] Comment on above: Order Comment: N Result Comment: The validity of the calculated GFR GFRAA in patients over 70 years has not been determined. Clinical correlation is essential. Performed By: #### L 3410.9992, L3600.5400, L502.000 #### [facility] [address] [place], [address] EST GFR - AA 95 mL/min Normal >60 [facility] Comment on above: Order Comment: N Result Comment: Afri can Sammarinese GFR Calc Performed By: #### L 3410.9992, L3600.5400, L502.000 #### [facility] [address] [place], [address] GAP 4 Low 5-15 [facility] Comment on above: Order Comment: N Performed By: #### L 3410.9992, L3600.5400, L502.000 #### [facility] [address] [place], [address] GFR/1.73 sq M.predicted among non-blacks MDRD (S/P/Bld) [Vol rate/Area] 79 mL/min/{1.73_m2} Normal >60 [facility] Comment on above: Order Comment: N Result Comment: Non- GFR Calc Performed By: #### L 3410.9992, L3600.5400, L502.000 #### [facility] [address] [place], [address] Glucose [Mass/Vol] 91 mg/dL Normal 74-106 [facility] Comment on above: Order Comment: N Performed By: #### L 3410.9992, L3600.5400, L502.000 #### [facility] [address] [place], [address] Potassium [Moles/Vol] 3.8 mmol/L Normal 3.5-5.1 [facility] Comment on above: Order Comment: N Performed By: #### L 3410.9992, L3600.5400, L502.000 #### [facility] [address] [place], [address] Sodium [Moles/Vol] 138 mmol/L Normal 136-145 [facility] Comment on above: Order Comment: N Performed By: #### L 3410.9992, L3600.5400, L502.000 #### [facility] [address] [place], [address] Urea nitrogen [Mass/Vol] 14 mg/dL Normal 7-18 [facility] Comment on above: Order Comment: N Performed By: #### L 3410.9992, L3600.5400, L502.000 #### [facility] [address] [place], [address] Free T3on 09-10-2024 Free T3 [Mass/Vol] 2.0 pg/mL Low 2.18-3.98 [facility] Comment on above: Order Comment: N Performed By: #### L 3410.9992, L3600.5400, L502.000 #### [facility] [address] [place], [address] T4 Free Directon 09-10-2024 T4 FREE DIRECT 0.95 ng/dL Normal 0.76-1.46 [facility] Comment on above: Order Comment: Test( s) 425384-Rikmgohz,F,ug/L,U was developed and its performance characteristics determined by [facility]. It has not been cleared or approved by the Food and Drug Administration. Performed By: #### L 3410.9992, L3600.5400, L502.000 #### [facility] [address] [place], [address] Thyroid Stim Hormone (TSH)on 09-10-2024 TSH 3.920 uIU/mL High 0.358-3.740 [facility] Comment on above: Order Comment: N Performed By: #### L 3410.9992, L3600.5400, L502.000 #### [facility] [address] [place], [address] 12 Lead EKGon 09-03-2024 12 Lead EKG [facility] [address] [place] [address] 12 Lead EKG 09/03/24 1854 MR#: [id number] Acct: [id number] Name: RACHELLE BURGOS Rep #: [id number] : 1955 69 From: [place] Carlisle MD [...] Abnormal ECG Confirmed by MONTANA CARLISLE MD ([id number]), editor at large ROSALIA PHELPS ([id number]) on 09/05/2024 10:05:25 AM Referred By: Confirmed By:MONTANA CARLISLE MD 09/05/24 1005 Date Montana Carlisle MD CC: Dr. Yonatan Courtney MD; Dr. Gaston Sanchez, DO Signed Normal [facility] BNP,B-Type NATRIURETIC PEPTI Geoff 09-03-2024 Natriuretic peptide B (Bld) [Mass/Vol] 16.7 pg/mL Normal 0-100 [facility] Comment on above: Performed By: #### L 503.6620, L300.8000 ####[facility] [address] [place], [address] Basic Metabolic Profile (BMP )on 09-03-2024 BUN/CRE 19.7 RATIO Normal 10-20 [facility] Comment on above: Order Comment: 1Y Performed By: #### L 100.0100, L500.2500, L501.5425 ####[facility] [address] [place], [address] CA,Total 9.0 mg/dL Normal 8.5-10.1 [facility] Comment on above: Order Comment: 1Y Performed By: #### L 100.0100, L500.2500, L501.5425 ####[facility] [address] [place], [address] Chloride [Moles/Vol] 103 mmol/L Normal 98-107 [facility] Comment on above: Order Comment: 1Y Performed By: #### L 100.0100, L500.2500, L501.5425 ####[facility] [address] [place], [address] CO2 [Moles/Vol] 29.0 mmol/L Normal 21.0-32.0 [facility] Comment on above: Order Comment: 1Y Performed By: #### L 100.0100, L500.2500, L501.5425 ####[facility] [address] [place], [address] Creatinine [Mass/Vol] 0.91 mg/dL Normal 0.55-1.02 [facility] Comment on above: Order Comment: 1Y Result Comment: The validity of the calculated GFR GFRAA in patients over 70 years has not been determined. Clinical correlation is essential. Performed By: #### L 100.0100, L500.2500, L501.5425 ####[facility] [address] [place], [address] ECRCL 71.24 ml/min Normal [facility] Comment on above: Order Comment: 1Y Performed By: #### L 100.0100, L500.2500, L501.5425 ####[facility] [address] [place], [address] EST GFR - AA 79 mL/min Normal >60 [facility] Comment on above: Order Comment: 1Y Result Comment: Afri can Sammarinese GFR Calc Performed By: #### L 100.0100, L500.2500, L501.5425 ####[facility] [address] [place], [address] GAP 6 Normal 5-15 [facility] Comment on above: Order Comment: 1Y Performed By: #### L 100.0100, L500.2500, L501.5425 ####[facility] [address] [place], [address] GFR/1.73 sq M.predicted among non-blacks MDRD (S/P/Bld) [Vol rate/Area] 65 mL/min/{1.73_m2} Normal >60 [facility] Comment on above: Order Comment: 1Y Result Comment: Non- GFR Calc Performed By: #### L 100.0100, L500.2500, L501.5425 ####[facility] [address] [place], [address] Glucose [Mass/Vol] 150 mg/dL High 74-106 [facility] Comment on above: Order Comment: 1Y Result Comment: Fast ing Glucose result greater than or equal to 126 mg/dL suggests DIABETES MELLITUS per A.D.A. criteria. Performed By: #### L 100.0100, L500.2500, L501.5425 ####[facility] [address] [place], [address] Potassium [Moles/Vol] 3.9 mmol/L Normal 3.5-5.1 [facility] Comment on above: Order Comment: 1Y Performed By: #### L 100.0100, L500.2500, L501.5425 ####[facility] [address] [place], [address] Sodium [Moles/Vol] 138 mmol/L Normal 136-145 [facility] Comment on above: Order Comment: 1Y Performed By: #### L 100.0100, L500.2500, L501.5425 ####[facility] [address] [place], [address] Urea nitrogen [Mass/Vol] 18 mg/dL Normal 7-18 [facility] Comment on above: Order Comment: 1Y Performed By: #### L 100.0100, L500.2500, L501.5425 ####[facility] [address] [place], [address] CBC W/Diff, Automatedon 10-2 Absolute Lymph 2.20 X10 3/uL Normal 0.83-4.51 [facility] Comment on above: Performed By: #### L 100.0100, L500.2500, L501.5425 ####[facility] [address] [place], [address] Absolute Neut 4.8 X10 3/uL Normal 2.0-7.7 [facility] Comment on above: Performed By: #### L 100.0100, L500.2500, L501.5425 ####[facility] [address] [place], [address] Basophils/100 WBC (Bld) 0.9 % Normal 0-1 [facility] Comment on above: Performed By: #### L 100.0100, L500.2500, L501.5425 ####[facility] [address] [place], [address] Eosinophils/100 WBC (Bld) 3.2 % Normal 0-5 [facility] Comment on above: Performed By: #### L 100.0100, L500.2500, L501.5425 ####[facility] [address] [place], [address] Erythrocyte distribution width (RBC) [Ratio] 13.8 % Normal 11.6-14.6 [facility] Comment on above: Performed By: #### L 100.0100, L500.2500, L501.5425 ####[facility] [address] [place], [address] Hematocrit (Bld) [Volume fraction] 40.1 % Normal 37-47 [facility] Comment on above: Performed By: #### L 100.0100, L500.2500, L501.5425 ####[facility] [address] [place], [address] Hemoglobin (Bld) [Mass/Vol] 12.9 g/dL Normal 12.0-15.0 [facility] Comment on above: Performed By: #### L 100.0100, L500.2500, L501.5425 ####[facility] [address] [place], [address] IG% 0.400 Normal 0.0-0.9 [facility] Comment on above: Result Comment: IG% - Immature Granulocytes (promyelocytes, myelocytes and metamyelocytes) > 1% indicates that a LEFT SHIFT is Present. Performed By: #### L 100.0100, L500.2500, L501.5425 ####[facility] [address] [place], [address] Lymphocytes/100 WBC (Bld) 27.7 % Normal 19-41 [facility] Comment on above: Performed By: #### L 100.0100, L500.2500, L501.5425 ####[facility] [address] [place], [address] MCH (RBC) [Entitic mass] 30.6 pg Normal 27.0-32.0 [facility] Comment on above: Performed By: #### L 100.0100, L500.2500, L501.5425 ####[facility] [address] [place], [address] MCHC (RBC) [Mass/Vol] 32.2 g/dL Normal 32-36 [facility] Comment on above: Performed By: #### L 100.0100, L500.2500, L501.5425 ####[facility] [address] [place], [address] MCV (RBC) [Entitic vol] 95.0 fL Normal 81-99 [facility] Comment on above: Performed By: #### L 100.0100, L500.2500, L501.5425 ####[facility] [address] [place], [address] Monocytes/100 WBC (Bld) 7.8 % Normal 0-10 [facility] Comment on above: Performed By: #### L 100.0100, L500.2500, L501.5425 ####[facility] [address] [place], [address] Neutrophils/100 WBC (Bld) 60.0 % Normal 47-70 [facility] Comment on above: Performed By: #### L 100.0100, L500.2500, L501.5425 ####[facility] [address] [place], [address] Nucleated RBC (Bld) [#/Vol] 0 10*3/uL Normal 0-5 [facility] Comment on above: Performed By: #### L 100.0100, L500.2500, L501.5425 ####[facility] [address] [place], [address] Platelet mean volume (Bld) [Entitic vol] 9.6 fL Normal 6.2-12.0 [facility] Comment on above: Performed By: #### L 100.0100, L500.2500, L501.5425 ####[facility] [address] [place], [address] Platelets (Bld) [#/Vol] 275 10*3/uL Normal 150-450 [facility] Comment on above: Performed By: #### L 100.0100, L500.2500, L501.5425 ####[facility] [address] [place], [address] RBC (Bld) [#/Vol] 4.22 10*6/uL Normal 4.2-5.4 [facility] Comment on above: Performed By: #### L 100.0100, L500.2500, L501.5425 ####[facility] [address] [place], [address] RDW SD 47.8 fl High 35.1-43.9 [facility] Comment on above: Performed By: #### L 100.0100, L500.2500, L501.5425 ####[facility] [address] [place], [address] WBC (Bld) [#/Vol] 7.9 10*3/uL Normal 4.4-11.0 [facility] Comment on above: Performed By: #### L 100.0100, L500.2500, L501.5425 ####[facility] [address] [place], [place], [address] Chest 1 View (Portable)on Chest 1 View (Portable) [facility] Imaging Services [address] [place] [place] [address] Chest 1 View (Portable) MR#: [id number] Acct: [id number] Name: RACHELLE BURGOS Rep #: [id number] : 1955 F 69 From: Osmin Acuña DO PCP: Dr. Yonatan Courtney MD Status: REG ER Study: Chest 1 View (Portable) Date of Exam: 09/03/24 Exam# [id number] Ordering Dr: Gaston Sanchez DO [id number] INDICATION: chest pain EXAMINATION/TECHNIQUE : X-RAY - XR Chest 1 View COMPARISON: February 15, 2018 __ FINDINGS: LINES/DEVICES: None. LUNGS: No consolidation, edema or effusion. No pneumothorax. MEDIASTINUM AND CARDIOVASCULAR STRUCTURES: Cardiac silhouette not enlarged. Central airways and mediastinal contour are unremarkable. BONES AND SOFT TISSUES: Unremarkable. RAD/Chest 1 View (Portable) IMPRESSION: No radiographic evidence of acute cardiopulmonary disease. Electronically Signed: Osmin Acuña DO at 20:59 EDT Reading Location ID and State: [facility] / [place] Tel [phone], Service support , CC: Dr. Yonatan Courtney MD; Dr. Gaston Sanchez DO Matrix Repairer: Signed Normal [facility] Chiropractic Reporton 2023 Chiropractic Report [facility] [address] [place] [address] [phone] OFFICE VISIT Date of Service: 09/03/24 MR#: [id number] Acct: [id number] Name: RACHELLE BURGOS Rep #: [id number] : 1955 Provider: GARCIA Montgomery Do ssi Age/Sex: 69/F Location: [facility] [place] Status: Signed Intake Vital Signs 05/21/24 [...] mg PO 06/17/22 09/03/24 History mg tablet (glucosamine-chondroi tin) cinnamon bark 500 mg capsule 500 mg PO DAILY 06/17/22 09/03/24 History (Cinnamon) coenzyme Q10 100 mg capsule 100 mg PO DAILY 06/17/22 09/03/24 History (CoQ-10) flaxseed oil 5 ml miscellaneous BID 06/17/22 09/03/24 History magnesium 30 mg tablet 30 mg PO DAILY 06/17/22 09/03/24 History multivitamin 1 tab PO DAILY 06/17/22 09/03/24 History omega 2-ptd-eqw-fish oil 300 1 cap PO DAILY 06/17/22 09/03/24 History mg-1,000 mg capsule (Fish Oil) Hydrocortisone 2.5%/lidocaine 5% #30 ea 07/11/23 09/03/24 Rx suppository (cmpd) atorvastatin 10 mg tablet 10 mg PO DAILY 07/11/23 09/03/24 History cholecalciferol (vitamin D3) 75 50 mcg PO DAILY 07/11/23 09/03/24 History mcg (3,000 unit) tablet hydrocortisone 2.5 % topical cream 1 applic SD QD-BID 07/11/23 09/03/24 History with perineal applicator [...] factors: c (more content not included)... Normal [facility] D-Dimer Quantitative (DVT/PE )on 09-03-2024 D-DIMER QUANT 0.48 FEU/ug/m Normal 0.27-0.49 [facility] Comment on above: Result Comment: NORM AL D-Dimer level (<0.50) indicates no DVT or PE. Performed By: #### L 503.6620, L300.8000 ####[facility] [address] [facility] [place], [address] Emergency Department Summary on 09-03-2024 Emergency Department Summary [facility] Medical Records Department [address] [place] [address] Emergency Department Summary 09/03/24 MR#: [id number] Acct: [id number] Name: RACHELLE BURGOS Rep #: [id number] : 1955 69 From: Gaston Sanchez DO PCP: Dr. Yonatan Courtney MD Status:DEP ER Location: ED HPI History of Present Illness Chief Complaint: Chest Pain [facility] Medical History Acute sinusitis, unspecified Hemorrhoids [...] DAILY arthritis 06/17/22 09/02/24 History mg tablet (glucosamine-chondroi tin) cinnamon bark 500 mg capsule 500 mg PO DAILY 06/17/22 Unknown History (Cinnamon) coenzyme Q10 100 mg capsule 100 mg PO DAILY 06/17/22 Unknown History (CoQ-10) magnesium 30 mg tablet 30 mg PO DAILY 06/17/22 Unknown History multivitamin 1 tab PO DAILY 06/17/22 09/02/24 History omega 6-efa-sqq-fish oil 300 1 cap PO DAILY 06/17/22 [...] Patient denie (more content not included)... Normal [facility] L501.4020on 09-03-2024 TROPONIN-I HS 5 pg/mL Normal 3.0-54.0 [facility] Comment on above: Result Comment: Bre thornton Note: New Test Units and Gender Specific Reference Ranges. For more information see Policy Stat Procedure Adolphus High Sensitivity Troponin (TNIH) and attachments. Performed By: #### L 501.4020 ####[facility] [address] [place], [place], [address] L501.5425on 09-03-2024 TROPONIN-I HS 4 pg/mL Normal 3.0-54.0 [facility] Comment on above: Order Comment: 1Y Result Comment: Bre thornton Note: New Test Units and Gender Specific Reference Ranges. For more information see Policy Stat Procedure Adolphus High Sensitivity Troponin (TNIH) and attachments. Performed By: #### L 3410.9992, L3600.5400, L502.000 #### [facility] Laboratory [address] [place], [address] Chiropractic Reporton 2023 Chiropractic Report [facility] [address] [place], [place] [address] OFFICE VISIT Date of Service: 08/06/24 MR#: [id number] Acct: [id number] Name: RACHELLE BURGOS Rep #: [id number] : 1955 Provider: GARCIA Roy Age/Sex: 69/F Location: [facility] [place] Status: Signed Intake Vital Signs 05/21/24 [...] mg PO 06/17/22 08/06/24 History mg tablet (glucosamine-chondroi tin) cinnamon bark 500 mg capsule 500 mg PO DAILY 06/17/22 08/06/24 History (Cinnamon) coenzyme Q10 100 mg capsule 100 mg PO DAILY 06/17/22 08/06/24 History (CoQ-10) flaxseed oil 5 ml miscellaneous BID 06/17/22 08/06/24 History magnesium 30 mg tablet 30 mg PO DAILY 06/17/22 08/06/24 History multivitamin 1 tab PO DAILY 06/17/22 08/06/24 History omega 8-ubp-xjo-fish oil 300 1 cap PO DAILY 06/17/22 08/06/24 History mg-1,000 mg capsule (Fish Oil) Hydrocortisone 2.5%/lidocaine 5% #30 ea 07/11/23 08/06/24 Rx suppository (cmpd) atorvastatin 10 mg tablet 10 mg PO DAILY 07/11/23 08/06/24 History cholecalciferol (vitamin D3) 75 50 mcg PO DAILY 07/11/23 08/06/24 History mcg (3,000 unit) tablet hydrocortisone 2.5 % topical cream 1 applic SD QD-BID 07/11/23 08/06/24 History with perineal applicator [...] normal ga (more content not included)... Normal [facility] No Panel InformationOrdered By: Yonatan Courtney on 12-23-2023 Free Triiodothyronine (T3) pg/dL 2.1 pg/mL 2.18-3.98 [facility] Serum or plasma thyroid stim ulating hormone (TSH) measurement (units/volume)Ordered By: Yonatan Courtney on 12-23-2023 TSH Qn 2.76 uIU/mL 0.358-3.74 [facility] Thin prep Papanicolaou smear with manual screeningOrdered By: Yonatan Courtney on 12-23-2023 Thin prep Papanicolaou smear with manual screening 0.92 ng/dL 0.76-1.46 [facility] Basophil percentageOrdered B y: Yonatan Courtney on 10-21-2023 Bilirubin [Mass/Vol] 0.90 mg/dL 0.20-1.00 [facility] Comment on above: For patients on eltr ombopag therapy, use of Dimension Adolphus TBIL is not recommended. Chloride [Moles/Vol] 106 mmol/L 98-107 [facility] Cholesterol [Mass/Vol] 202 mg/dL <200 [place] Comment on above: <200 mg/dL Desirable 200-240 mg/dL Borderline >240 mg/dL High Risk Glucose [Mass/Vol] 108 mg/dL 74-106 [facility] Comment on above: Fasting Glucose resu lt from 100 to 125 mg/dL suggests IMPAIRED HOMEOSTASIS per A.D.A. criteria. Potassium [Moles/Vol] 3.9 mmol/L 3.5-5.1 [facility] Protein [Mass/Vol] 7.1 g/dL 6.4-8.2 [facility] Sodium [Moles/Vol] 139 mmol/L 136-145 [facility] Triglyceride [Mass/Vol] 163 mg/dL <199 [facility] Comment on above: The drugs N-Acetylcy steine and Metamizole may falsely depress this assay.Serum Triglycerides Reference Interval Normal <150 mg/dL Borderline high 150 - 199 mg/dL High 200 - 499 mg/dL Very High > or = 500 mg/dL Laboratory - Chemistry and C hemistry - challengeOrdered By: Yonatan Courtney on 10-21-2023 ALP [Catalytic activity/Vol] 71 U/L 45-117 [facility] ALT [Catalytic activity/Vol] 28 U/L 13-56 [facility] CO2 [Moles/Vol] 30.0 mmol/L 21.0-32.0 [facility] Free T4 [Mass/Vol] 1.21 ng/dL 0.76-1.46 [facility] Globulin (S) [Mass/Vol] 3.4 g/dL 2.2-4.2 [facility] Urea nitrogen/Creatinine [Mass ratio] 19.4 mg/mg 10-20 [facility] No Panel InformationOrdered By: Yonatan Courtney on 10-21-2023 Estimated GFR (MDRD) Amer 104 mL/min >60 [facility] Comment on above: GFR Calc Estimated GFR (MDRD) Non-Af Amer 86 mL/min >60 [facility] Comment on above: Non- GFR Calc Free Triiodothyronine (T3) pg/dL 2.9 pg/mL 2.18-3.98 [facility] Thyroid Stimulating Hormone (TSH) 0.24 uIU/mL 0.358-3.74 [facility] Serum or plasma albumin annabel urement (mass/volume)Ordered By: Yonatan Courtney on 10-21-2023 Albumin [Mass/Vol] 3.7 g/dL 3.2-5.0 [facility] Serum or plasma albumin/glob ulin mass ratioOrdered By: Yonatan Courtney on 10-21-2023 Albumin/Globulin [Mass ratio] 1.1 {ratio} 0.9-2.4 [facility] Serum or plasma calcium annabel urement (mass/volume)Ordered By: Yonatan Courtney on 10-21-2023 Calcium [Mass/Vol] 9.2 mg/dL 8.5-10.1 [facility] Serum or plasma cholesterol in HDL measurement (mass/volume)Ordered By: Yonatan Courtney on 10-21-2023 Cholesterol in HDL [Mass/Vol] 57 mg/dL >40 [facility] Comment on above: The drugs N-Acetylcy steine and Metamizole may falsely depress this assay. Reference Range HDL <40 mg/dL Low HDL Cholesterol HDL >or= 60 mg/dL High HDL Cholesterol Serum or plasma cholesterol in VLDL measurement (mass/volume)Ordered By: Yonatan Courtney on 10-21-2023 Cholesterol in VLDL [Mass/Vol] 33 mg/dL 5-40 [facility] Serum or plasma creatinine m easurement (mass/volume)Ordered By: Yonatan Courtney on 10-21-2023 Creatinine [Mass/Vol] 0.72 mg/dL 0.55-1.02 [facility] Comment on above: The validity of the calculated GFR & GFRAA in patients over 70 years has not been determined. Clinical correlation is essential. Serum or plasma low density lipoprotein (LDL) cholesterol measurement (mass/volume)Ordered By: Yonatan Courtney on 10-21-2023 Cholesterol in LDL [Mass/Vol] 112 mg/dL 0-130 [facility] Serum or plasma urea nitroge n measurement (mass/volume)Ordered By: Yonatan Courtney on 10-21-2023 Urea nitrogen [Mass/Vol] 14 mg/dL 7-18 [facility] Thin prep Papanicolaou smear with manual screeningOrdered By: Yonatan Courtney on 10-21-2023 Thin prep Papanicolaou smear with manual screening 18 U/L 15-37 [facility] Thin prep Papanicolaou smear with manual screening 3 5-15 [facility] Basophil percentageOrdered B y: Yonatan Courtney on 07-15-2023 Bilirubin [Mass/Vol] 0.70 mg/dL 0.20-1.00 [facility] Comment on above: For patients on eltr ombopag therapy, use of Dimension Adolphus TBIL is not recommended. Chloride [Moles/Vol] 110 mmol/L 98-107 [facility] Cholesterol [Mass/Vol] 191 mg/dL <200 [place] Comment on above: <200 mg/dL Desirable 200-240 mg/dL Borderline >240 mg/dL High Risk Glucose [Mass/Vol] 103 mg/dL 74-106 [facility] Comment on above: Fasting Glucose resu lt from 100 to 125 mg/dL suggests IMPAIRED HOMEOSTASIS per A.D.A. criteria. Potassium [Moles/Vol] 4.3 mmol/L 3.5-5.1 [facility] Protein [Mass/Vol] 7.0 g/dL 6.4-8.2 [facility] Sodium [Moles/Vol] 142 mmol/L 136-145 [facility] Triglyceride [Mass/Vol] 108 mg/dL <199 [facility] Comment on above: The drugs N-Acetylcy steine and Metamizole may falsely depress this assay.Serum Triglycerides Reference Interval Normal <150 mg/dL Borderline high 150 - 199 mg/dL High 200 - 499 mg/dL Very High > or = 500 mg/dL Laboratory - Chemistry and C hemistry - challengeOrdered By: Yonatan Courtney on 07-15-2023 ALP [Catalytic activity/Vol] 70 U/L 45-117 [facility] ALT [Catalytic activity/Vol] 26 U/L 13-56 [facility] CO2 [Moles/Vol] 28.0 mmol/L 21.0-32.0 [facility] Free T4 [Mass/Vol] 1.29 ng/dL 0.76-1.46 [facility] Globulin (S) [Mass/Vol] 3.3 g/dL 2.2-4.2 [facility] Urea nitrogen/Creatinine [Mass ratio] 20.3 mg/mg 10-20 [facility] No Panel InformationOrdered By: Yonatan Courtney on 07-15-2023 Estimated GFR (MDRD) Amer 101 mL/min >60 [facility] Comment on above: GFR Calc Estimated GFR (MDRD) Non-Af Amer 83 mL/min >60 [facility] Comment on above: Non- GFR Calc Free Triiodothyronine (T3) pg/dL 2.3 pg/mL 2.18-3.98 [facility] Thyroid Stimulating Hormone (TSH) 0.37 uIU/mL 0.358-3.74 [facility] Serum or plasma albumin annabel urement (mass/volume)Ordered By: Yonatan Courtney on 07-15-2023 Albumin [Mass/Vol] 3.7 g/dL 3.2-5.0 [facility] Serum or plasma albumin/glob ulin mass ratioOrdered By: Yonatan Courtney on 07-15-2023 Albumin/Globulin [Mass ratio] 1.1 {ratio} 0.9-2.4 [facility] Serum or plasma calcium annabel urement (mass/volume)Ordered By: Yonatan Courtney on 07-15-2023 Calcium [Mass/Vol] 8.8 mg/dL 8.5-10.1 [facility] Serum or plasma cholesterol in HDL measurement (mass/volume)Ordered By: Yonatan Courtney on 07-15-2023 Cholesterol in HDL [Mass/Vol] 57 mg/dL >40 [facility] Comment on above: The drugs N-Acetylcy steine and Metamizole may falsely depress this assay. Reference Range HDL <40 mg/dL Low HDL Cholesterol HDL >or= 60 mg/dL High HDL Cholesterol Serum or plasma cholesterol in VLDL measurement (mass/volume)Ordered By: Yonatan Courtney on 07-15-2023 Cholesterol in VLDL [Mass/Vol] 22 mg/dL 5-40 [facility] Serum or plasma creatinine m easurement (mass/volume)Ordered By: Yonatan Courtney on 07-15-2023 Creatinine [Mass/Vol] 0.74 mg/dL 0.55-1.02 [facility] Comment on above: The validity of the calculated GFR & GFRAA in patients over 70 years has not been determined. Clinical correlation is essential. Serum or plasma low density lipoprotein (LDL) cholesterol measurement (mass/volume)Ordered By: Yonatan Courtney on 07-15-2023 Cholesterol in LDL [Mass/Vol] 112 mg/dL 0-130 [facility] Serum or plasma urea nitroge n measurement (mass/volume)Ordered By: Yonatan Courtney on 07-15-2023 Urea nitrogen [Mass/Vol] 15 mg/dL 7-18 [facility] Thin prep Papanicolaou smear with manual screeningOrdered By: Yonatan Courtney on 07-15-2023 Thin prep Papanicolaou smear with manual screening 12 U/L 15-37 [facility] Thin prep Papanicolaou smear with manual screening 4 5-15 [facility] CNPNon 05-18-2023 CNPN Telephone (UCWSTR) RACHELLE BURGOS ([id number]) 1955 F Date Time Provider Department 05/18/23 ASHER GARCIA [facility] During your visit today, we [...] Date Reviewed: 05/17/2023 Reviewed by: Scooby Henson APRN.[employer]OR - Fully Assessed Reason for Visit: Results [95] Primary Visit Diagnosis:Acute right ankle pain [M25.571] Order(s):CONSULT TO PODIATRY [9034] Order #: [id number]: 1 FUTURE Prescriptions as of 05/18/2023 - Osufm-7-UTO-EPA-Fish Oil 300-1,000 mg cap Take by mouth once daily. - ergocalciferol, vitamin D2, (VITAMIN D2 ORAL) Take by mouth once daily. - COQ10, LIPOSOMAL UBIQUINOL, ORAL Take by mouth once daily. - glucosamine/msm/csa/c al/muo745 (DHVXOTDRIS-QWMBF-YTQ -AMELIA-115HC ORAL) Take by mouth once daily. - [...] Status:Closed by AMANDA FAY on 05/18/23 Normal [facility] No Panel Informationon 05-18 IMPRESSION: No acute osseous abnormality Matrix Repairer: [facility] Transcribe Date/Time: May 18 2023 8:57A Dictated by : NGOZI AMOR MD This examination was interpreted and the report reviewed and electronically signed by: NGOZI AMOR MD on May 18 2023 9:00AM EST DIVISION OF RADIOLOGY Radiology Study observation (narrative) [facility] No Panel InformationOrdered By: Ccf Provider on 05-18-2023 [facility] XR ANKLE 3V AP/LAT/OBL RTon 05-18-2023 [...] calcaneal spur. IMPRESSION: No acute osseous abnormality Matrix Repairer: [facility] Transcribe Date/Time: May 18 2023 8:57A Dictated by : NGOZI AMOR MD This examination was interpreted and the report reviewed and electronically signed by: NGOZI AMOR MD on May 18 2023 9:00AM EST [id number] N Normal [facility] XR Ankle - right AP and [...] Plantar calcaneal spur. DIVISION OF RADIOLOGY Provider, [facility] - 05/18/2023 * * *Final Report* * [...] spur. IMPRESSION IMPRESSION: No acute osseous abnormality Matrix Repairer: [employer] Transcribe Date/Time: May 18 2023 8:57A Dictated by : NGOZI AMOR MD This examination was interpreted and the report reviewed and electronically signed by: NGOZI AMOR MD on May 18 2023 9:00AM [facility] XR FOOT 3V AP/LAT/OBL RTon 0 05-18-2023 [...] calcaneal spur. IMPRESSION: No acute osseous abnormality Matrix Repairer: [facility] Transcribe Date/Time: May 18 2023 8:57A Dictated by : NGOZI AMOR MD This examination was interpreted and the report reviewed and electronically signed by: NGOZI AMOR MD on May 18 2023 9:00AM EST [id number] N Normal [facility] XR Foot - right AP and [...] Plantar calcaneal spur. DIVISION OF RADIOLOGY Provider, [facility] - 05/18/2023 * * *Final Report* * [...] spur. IMPRESSION IMPRESSION: No acute osseous abnormality Matrix Repairer: [facility] Transcribe Date/Time: May 18 2023 8:57A Dictated by : NGOZI AMOR MD This examination was interpreted and the report reviewed and electronically signed by: NGOZI AMOR MD on May 18 2023 9:00AM EST [facility] CNOVon 05-17-2023 CNOV Office Visit ([facility]WSTR ) LORETTARACHELLE ([id number]) 1955 F Date Time Provider Department 05/17/23 8:15 AM SCOOBY HENSON [facility] During your visit today, we recorded the following information about you: Temperature Pulse Respiration Blood pressure 98.4 degrees 70/minute 18/minute 110/62 Weight 96.8 kg Scooby Henson APRN.[employer] 05/17/2023 8:51 AM Signed Subjective HPI Nontoxic-appearing [...] Date Allergic rhinitis Detached retina, 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 VAGINAL HYSTERECTOMY UTERUS 250 GM/< Hysterectomy, vaginal VITRECTOMY,MECHANICAL S/p IOL Exchange/PPV OD:04/27/2021 ALLERGIES Adhesive, Penicillins, Seasonal Allergies, and Xarelto [Rivaroxaban] MEDICATIONS Lzfly-5-KZU-EPA-Fish Oil 300-1,000 mg cap Take by mouth once daily. ergocalciferol, vitamin D2, (VITAMIN D2 ORAL) Take by mouth once daily. COQ10, LIPOSOMAL UBIQUINOL, ORAL Take by mouth once daily. glucosamine/msm/csa/c al/lfi871 (OHBOJXKZZA-XTZQN-IUW -AMELIA-115HC ORAL) Take by mouth once daily. prednisoLONE [...] Pulmonary: Effort: (more content not included)... Normal [facility] Basophil percentageOrdered B y: Dr. Knowles on 03-08-2023 WBC (Bld) [#/Vol] 6.9 10*3/uL 4.4-11.0 [facility] Blood erythrocytes count (nu mber/volume)Ordered By: Dr. Knowles on 03-08-2023 RBC (Bld) [#/Vol] 4.29 10*6/uL 4.2-5.4 [facility] Blood hemoglobin measurement (mass/volume)Ordered By: Dr. Knowles on 03-08-2023 Hemoglobin (Bld) [Mass/Vol] 13.1 g/dL 12.0-15.0 [facility] Blood platelet mean volumeOr dered By: Dr. Knowles on 03-08-2023 Platelet mean volume (Bld) [Entitic vol] 10.1 fL 6.2-12.0 [facility] Determination of erythrocyte mean corpuscular volume (MCV)Ordered By: Dr. Knowles on 03-08-2023 MCV (RBC) [Entitic vol] 96.5 fL 81-99 [facility] Erythrocyte sedimentation ra teOrdered By: Dr. Knowles on 03-08-2023 ESR (Bld) [Velocity] 5 mm/h 0-30 [facility] Hematocrit Auto (Bld) [Volum e fraction]Ordered By: Dr. Knowles on 03-08-2023 Hematocrit (Bld) [Volume fraction] 41.4 % 37-47 [facility] Laboratory - Hematology and Cell countsOrdered By: Dr. Knowles on 03-08-2023 Erythrocyte distribution width (RBC) [Entitic vol] 49.3 fL 35.1-43.9 [facility] Erythrocyte distribution width (RBC) [Ratio] 13.7 % 11.6-14.6 [facility] MCH (RBC) [Entitic mass] 30.5 pg 27.0-32.0 [facility] MCHC Auto (RBC) [Mass/Vol]Or dered By: Dr. Knowles on 03-08-2023 MCHC (RBC) [Mass/Vol] 31.6 g/dL 32-36 [facility] Platelets bldOrdered By: Dr. Knowles on 03-08-2023 Platelets (Bld) [#/Vol] 236 10*3/uL 150-450 [facility] Basophil percentageOrdered B y: Dr. Courtney on 12-23-2022 Chloride [Moles/Vol] 104 mmol/L 98-107 [facility] Glucose [Mass/Vol] 120 mg/dL 74-106 [facility] Comment on above: Fasting Glucose resu lt from 100 to 125 mg/dL suggests IMPAIRED HOMEOSTASIS per A.D.A. criteria. Potassium [Moles/Vol] 3.9 mmol/L 3.5-5.1 [facility] Sodium [Moles/Vol] 140 mmol/L 136-145 [facility] Laboratory - Chemistry and C hemistry - challengeOrdered By: Dr. Courtney on 12-23-2022 CO2 [Moles/Vol] 29.0 mmol/L 21.0-32.0 [facility] Free T4 [Mass/Vol] 1.18 ng/dL 0.76-1.46 [facility] Urea nitrogen/Creatinine [Mass ratio] 18.8 mg/mg 10-20 [facility] No Panel InformationOrdered By: Dr. Courtney on 12-23-2022 Estimated GFR (MDRD) Amer 100 mL/min >60 [facility] Comment on above: GFR Calc Estimated GFR (MDRD) Non-Af Amer 83 mL/min >60 [facility] [facility] Comment on above: Non- GFR Calc Free Triiodothyronine (T3) pg/dL 2.7 pg/mL 2.18-3.98 [facility] Thyroid Stimulating Hormone (TSH) 1.54 uIU/mL 0.358-3.74 [facility] Serum or plasma calcium annabel urement (mass/volume)Ordered By: Dr. Courtney on 12-23-2022 Calcium [Mass/Vol] 9.2 mg/dL 8.5-10.1 [facility] Serum or plasma creatinine m easurement (mass/volume)Ordered By: Dr. Courtney on 12-23-2022 Creatinine [Mass/Vol] 0.75 mg/dL 0.55-1.02 [facility] Comment on above: The validity of the calculated GFR & GFRAA in patients over 70 years has not been determined. Clinical correlation is essential. Serum or plasma urea nitroge n measurement (mass/volume)Ordered By: Dr. Courtney on 12-23-2022 Urea nitrogen [Mass/Vol] 14 mg/dL 7-18 [facility] Thin prep Papanicolaou smear with manual screeningOrdered By: Dr. Courtney on 12-23-2022 Thin prep Papanicolaou smear with manual screening 7 5-15 [facility] Whole blood hemoglobin A1c/t otal hemoglobin ratio (mass fraction)Ordered By: Dr. Courtney on 12-23-2022 HbA1c (Bld) [Mass fraction] 5.8 % 3.8-5.6 [facility] Comment on above: Normal < 5.7 % Predi abetic 5.7 - 6.4 % Diabetic >or= 6.5 % Please note range changes. Basophil percentageOrdered B y: Dr. Courtney on 09-16-2022 Chloride [Moles/Vol] 106 mmol/L 98-107 [facility] Cholesterol [Mass/Vol] 286 mg/dL <200 [place] Comment on above: <200 mg/dL Desirable 200-240 mg/dL Borderline >240 mg/dL High Risk Glucose [Mass/Vol] 108 mg/dL 74-106 [facility] Comment on above: Fasting Glucose resu lt from 100 to 125 mg/dL suggests IMPAIRED HOMEOSTASIS per A.D.A. criteria. Potassium [Moles/Vol] 3.9 mmol/L 3.5-5.1 [facility] Sodium [Moles/Vol] 140 mmol/L 136-145 [facility] Triglyceride [Mass/Vol] 218 mg/dL <199 [facility] Comment on above: The drugs N-Acetylcy steine and Metamizole may falsely depress this assay.Serum Triglycerides Reference Interval Normal <150 mg/dL Borderline high 150 - 199 mg/dL High 200 - 499 mg/dL Very High > or = 500 mg/dL Laboratory - Chemistry and C hemistry - challengeOrdered By: Dr. Courtney on 09-16-2022 CO2 [Moles/Vol] 28.0 mmol/L 21.0-32.0 [facility] Free T4 [Mass/Vol] 1.12 ng/dL 0.76-1.46 [facility] Urea nitrogen/Creatinine [Mass ratio] 19.5 mg/mg 10-20 [facility] No Panel InformationOrdered By: Dr. Courtney on 09-16-2022 Estimated GFR (MDRD) Amer 114 mL/min >60 [facility] Comment on above: GFR Calc Estimated GFR (MDRD) Non-Af Amer 95 mL/min >60 [facility] Comment on above: Non- GFR Calc Free Triiodothyronine (T3) pg/dL 2.9 pg/mL 2.18-3.98 [facility] Thyroid Stimulating Hormone (TSH) 0.99 uIU/mL 0.358-3.74 [facility] Serum or plasma calcium annabel urement (mass/volume)Ordered By: Dr. Courtney on 09-16-2022 Calcium [Mass/Vol] 9.2 mg/dL 8.5-10.1 [facility] Serum or plasma cholesterol in HDL measurement (mass/volume)Ordered By: Dr. Courtney on 09-16-2022 Cholesterol in HDL [Mass/Vol] 56 mg/dL >40 [facility] Comment on above: The drugs N-Acetylcy steine and Metamizole may falsely depress this assay. Reference Range HDL <40 mg/dL Low HDL Cholesterol HDL >or= 60 mg/dL High HDL Cholesterol Serum or plasma cholesterol in VLDL measurement (mass/volume)Ordered By: Dr. Courtney on 09-16-2022 Cholesterol in VLDL [Mass/Vol] 44 mg/dL 5-40 [facility] Serum or plasma creatinine m easurement (mass/volume)Ordered By: Dr. Courtney on 09-16-2022 Creatinine [Mass/Vol] 0.67 mg/dL 0.55-1.02 [facility] Comment on above: The validity of the calculated GFR & GFRAA in patients over 70 years has not been determined. Clinical correlation is essential. Serum or plasma low density lipoprotein (LDL) cholesterol measurement (mass/volume)Ordered By: Dr. Courtney on 09-16-2022 Cholesterol in LDL [Mass/Vol] 186 mg/dL 0-130 [facility] Serum or plasma urea nitroge n measurement (mass/volume)Ordered By: Dr. Courtney on 09-16-2022 Urea nitrogen [Mass/Vol] 13 mg/dL 7-18 [facility] Thin prep Papanicolaou smear with manual screeningOrdered By: Dr. Courtney on 09-16-2022 Thin prep Papanicolaou smear with manual screening 6 5-15 [facility] Basophil percentageon 2021 Bilirubin [Mass/Vol] 0.70 mg/dL 0.20-1.00 [facility] Work Phone: Comment on above: For patients on eltr ombopag therapy, use of Dimension Adolphus TBIL is not recommended. Chloride [Moles/Vol] 106 mmol/L 98-107 [facility] Work Phone: Cholesterol [Mass/Vol] 233 mg/dL <200 [place] Work Phone: Comment on above: <200 mg/dL Desirable 200-240 mg/dL Borderline >240 mg/dL High Risk Glucose [Mass/Vol] 108 mg/dL 74-106 [facility] Work Phone: Comment on above: Fasting Glucose resu lt from 100 to 125 mg/dL suggests IMPAIRED HOMEOSTASIS per A.D.A. criteria. Potassium [Moles/Vol] 3.7 mmol/L 3.5-5.1 [facility] Work Phone: Protein [Mass/Vol] 7.0 g/dL 6.4-8.2 [facility] Work Phone: Sodium [Moles/Vol] 139 mmol/L 136-145 [facility] Work Phone: Triglyceride [Mass/Vol] 142 mg/dL <199 [facility] Work Phone: Comment on above: The drugs N-Acetylcy steine and Metamizole may falsely depress this assay.Serum Triglycerides Reference Interval Normal <150 mg/dL Borderline high 150 - 199 mg/dL High 200 - 499 mg/dL Very High > or = 500 mg/dL Laboratory - Chemistry and C hemistry - challengeon 03-18-2022 ALP [Catalytic activity/Vol] 72 U/L 45-117 [facility] Work Phone: ALT [Catalytic activity/Vol] 28 U/L 13-56 [facility] Work Phone: CO2 [Moles/Vol] 27.0 mmol/L 21.0-32.0 [facility] Work Phone: Free T4 [Mass/Vol] 1.32 ng/dL 0.76-1.46 [facility] Work Phone: Globulin (S) [Mass/Vol] 3.3 g/dL 2.2-4.2 [facility] Work Phone: Urea nitrogen/Creatinine [Mass ratio] 17.9 mg/mg 10-20 [facility] Work Phone: No Panel Informationon 03-18 Estimated GFR (MDRD) Amer 103 mL/min >60 [facility] Work Phone: Comment on above: GFR Calc Estimated GFR (MDRD) Non-Af Amer 85 mL/min >60 [facility] Work Phone: Comment on above: Non- GFR Calc Free Triiodothyronine (T3) pg/dL 2.9 pg/mL 2.18-3.98 [facility] Work Phone: Thyroid Stimulating Hormone (TSH) 0.38 uIU/mL 0.358-3.74 [facility] Work Phone: Serum or plasma albumin annabel urement (mass/volume)on 03-18-2022 Albumin [Mass/Vol] 3.7 g/dL 3.2-5.0 [facility] Work Phone: Serum or plasma albumin/glob ulin mass ratioon 03-18-2022 Albumin/Globulin [Mass ratio] 1.1 {ratio} 0.9-2.4 [facility] Work Phone: Serum or plasma calcium annabel urement (mass/volume)on 03-18-2022 Calcium [Mass/Vol] 8.9 mg/dL 8.5-10.1 [facility] Work Phone: Serum or plasma cholesterol in HDL measurement (mass/volume)on 03-18-2022 Cholesterol in HDL [Mass/Vol] 53 mg/dL >40 [facility] Work Phone: Comment on above: The drugs N-Acetylcy steine and Metamizole may falsely depress this assay. Reference Range HDL <40 mg/dL Low HDL Cholesterol HDL >or= 60 mg/dL High HDL Cholesterol Serum or plasma cholesterol in VLDL measurement (mass/volume)on 03-18-2022 Cholesterol in VLDL [Mass/Vol] 28 mg/dL 5-40 [facility] Work Phone: Serum or plasma creatinine m easurement (mass/volume)on 03-18-2022 Creatinine [Mass/Vol] 0.73 mg/dL 0.55-1.02 [facility] Work Phone: Comment on above: The validity of the calculated GFR & GFRAA in patients over 70 years has not been determined. Clinical correlation is essential. Serum or plasma low density lipoprotein (LDL) cholesterol measurement (mass/volume)on 03-18-2022 Cholesterol in LDL [Mass/Vol] 152 mg/dL 0-130 [facility] Work Phone: Serum or plasma urea nitroge n measurement (mass/volume)on 03-18-2022 Urea nitrogen [Mass/Vol] 13 mg/dL 7-18 [facility] Work Phone: Thin prep Papanicolaou smear with manual screeningon 03-18-2022 Thin prep Papanicolaou smear with manual screening 16 U/L 15-37 [facility] Work Phone: Thin prep Papanicolaou smear with manual screening 6 5-15 [facility] Work Phone: Office Visit: Spine Visit- N tanya & upper back painon 08-01-2017 Documentation of current medications (procedure) Done Invalid Interpretation Code [facility] Work Phone: Office Visit: Spine Visit- N tanya & lower back painon 04-28-2017 Protein mass conc Done [facility] Work Phone: Office Visit: Spine Visit-ne ck , lower lumbar painon 02-09-2017 Tobacco smoking status WVIS Never Invalid Interpretation Code [facility] Work Phone: Tobacco smoking status WVIS Former smoker [facility] Work Phone: Tobacco use [facility] Former smoker Invalid Interpretation Code [facility] Work Phone: Office Visit: Spine Visit - Neck and Upper Back Painon 11-18-2014 MG Breast screening Normal Bilateral Invalid Interpretation Code [facility] Work Phone: Office Visit: Spine Visit - Neck and Upper Back Painon 11-15-2011 Colonoscopy (procedure) Colonoscopy (procedure) Invalid Interpretation Code [facility] Work Phone: Protein mass conc Colonoscopy (procedure) [facility] Work Phone: OCT MACULA CIRRUS OU (BOTH E YES) [facility] Vital Signs Date Time Vital Sign Value Performing Clinician Facility 06-06-2025 12:39-0400 Body height 173 cm Altagracia Tao MD Work Phone: [facility] 06-06-2025 12:39-0400 Body height 172.72 cm Altagracia Tao MD Work Phone: [facility] 06-06-2025 12:39-0400 Body mass index (BMI) [Ratio] 32.05 kg/m2 Altagracia Tao MD Work Phone: [facility] 06-06-2025 12:39-0400 Body weight 95 kg Altagracia Tao MD Work Phone: [facility] 06-06-2025 12:39-0400 Body weight 95.26 kg Altagracia Tao MD Work Phone: [facility] 06-06-2025 12:39-0400 BP SITE #1 Altagracia Tao MD Work Phone: [facility] 06-06-2025 12:39-0400 Diastolic blood pressure 67 mm[Hg] Altagracia Tao MD Work Phone: [facility] 06-06-2025 12:39-0400 Heart rate 82 /min Altagracia Tao MD Work Phone: [facility] 06-06-2025 12:39-0400 HGHTCHNVIS Altagracia Tao MD Work Phone: [facility] 06-06-2025 12:39-0400 Systolic blood pressure 121 mm[Hg] Altagracia Tao MD Work Phone: [facility] 06-06-2025 12:39-0400 VITALSDONE Altagracia Tao MD Work Phone: [facility] 02-11-2025 14:52-0400 Body height 172.[address] Yonatan Courtney MD Work Phone: [facility] 07-11-2023 08:23-0400 Body height 172.[address] Yonatan Courtney Work Phone: [facility] 07-11-2023 08:23-0400 Body mass index (BMI) [Ratio] 32.3 kg/m2 Dr. Yonatan Courtney Work Phone: [facility] 07-11-2023 08:23-0400 Body temperature 97.3 [degF] Dr. Yonatan Courtney Work Phone: [facility] 07-11-2023 08:23-0400 Body weight 96.[address] Yonatan Courtney Work Phone: [facility] 07-11-2023 08:23-0400 Diastolic blood pressure 75 mm[Hg] Dr. Yonatan Courtney Work Phone: [facility] 07-11-2023 08:23-0400 Heart rate 79 /min Dr. Yonatan Courtney Work Phone: [facility] 07-11-2023 08:23-0400 Respiratory rate 18 /min Dr. Yonatan Courtney Work Phone: [facility] 07-11-2023 08:23-0400 SaO2% (BldA) [Mass fraction] 96 % Dr. Yonatan Courtney Work Phone: [facility] 07-11-2023 08:23-0400 Systolic blood pressure 123 mm[Hg] Dr. Yonatan Coutrney Work Phone: [facility] 05-17-2023 08:22-0400 Body temperature 98.4 [degF] Scooby Henson APRN.[employer] Work Phone: [facility] 05-17-2023 08:22-0400 Body weight 96.8 kg Scooby Henson INSTRUMENT DESIGNER.[employer] Work Phone: [facility] 05-17-2023 08:22-0400 Diastolic blood pressure 62 mm[Hg] Scooby Henson INSTRUMENT DESIGNER.[employer] Work Phone: [facility] 05-17-2023 08:22-0400 Heart rate 70 /min Scooby Henson INSTRUMENT DESIGNER.[employer] Work Phone: [facility] 05-17-2023 08:22-0400 Respiratory rate 18 /min Scooby Huntlauren INSTRUMENT DESIGNER.[employer] Work Phone: [facility] 05-17-2023 08:22-0400 SaO2% (BldA) [Mass fraction] 97 % Scooby Huntlauren INSTRUMENT DESIGNER.[employer] Work Phone: [facility] 05-17-2023 08:22-0400 Systolic blood pressure 110 mm[Hg] Scooby Huntlauren INSTRUMENT DESIGNER.[employer] Work Phone: [facility] 12-13-2016 09:19-0500 BP Diastolic 78 mm[Hg] Valentina Flores DC [facility] Work Phone: 12-13-2016 09:19-0500 BP Systolic 138 mm[Hg] Valentina Flores DC [facility] Work Phone: 12-13-2016 09:19-0500 Weight 96.03 kg Valentina Flores DC [facility] Work Phone: Encounters Encounter Date Encounter Type Care Provider Facility Start: 07-29-2025 End: 07-29-[address] Valentina Flores DC -[facility] Work Phone: Start: 07-29-2025 End: 07-29-[address] Yonatan Courtney MD Work Phone: -[facility] Start: 07-26-[address] Yonatan Courtney MD -Nuclear Medicine [facility] Work Phone: Start: 07-26-2025 End: 07-26-2025 ambulatory Yonatan Courtney Facility:[facility] Start: 07-18-2025 Encounter for genera l adult medical examination without abnormal findings Yonatan Courtney [facility] Start: 07-09-2025 End: 07-09-[address] Yonatan Courtney MD Work Phone: -Outpatient Bone Densitometry Start: 07-09-2025 End: 07-09-[address] Yonatan Courtney MD -Outpatient Bone Densitometry Work Phone: Start: 07-09-2025 End: 07-09-2025 ambulatory Yonatan Courtney Facility:[facility] Start: 07-01-2025 End: 07-01-[address] Valentina Flores DC -[facility] Work Phone: Start: 07-01-2025 End: 07-01-[address] Yonatan Courtney MD Work Phone: -[facility] Start: 06-28-2025 End: 06-28-[address] Yonatan Courtney MD Work Phone: -[facility] Start: 06-28-2025 End: 06-28-[address] Yonatan Courtney MD -[facility] Start: 06-27-2025 End: 06-28-[address] Yonatan Courtney MD Work Phone: -[facility] Start: 06-27-2025 End: 06-27-[address] Yonatan Courtney MD -[facility] Work Phone: Start: 06-27-2025 End: 06-27-2025 ambulatory Yonatan Courtney Facility:[facility] Start: 06-09-2025 Visit out of hours Altagracia Tao MD Work Phone: [facility] Work Phone: Start: 06-06-2025 In-person encounter Altagracia nicholson MD Work Phone: [facility] Work Phone: Start: 06-03-2025 End: 06-03-[address] Valentina Flores DC -[facility] Work Phone: Start: 06-03-2025 End: 06-03-[address] Yonatan Courtney MD Work Phone: -[facility] Start: 05-30-2025 End: 05-30-[address] Yonatan Courtney MD Work Phone: -Laboratory Start: 05-30-2025 End: 05-30-[address] Jaciel Gavin DO -Laboratory Work Phone: Start: 05-29-2025 ambulatory Arelis Yusefgrace Facility: [place] Start: 05-29-2025 Non-patient / Non-visit Dr. Arelis Frausto MD -[facility]- Start: 05-29-2025 End: 05-30-[address] Yonatan Courtney MD Work Phone: -Pulmonary Services/Neurology Start: 05-29-2025 End: 05-29-[address] Yonatan Courtney MD -Pulmonary Services/Neurology Work Phone: Start: 05-29-2025 End: 05-29-2025 ambulatory Yonatan Courtney Facility:[facility] Start: 05-24-2025 End: 05-24-[address] Yonatan Courtney MD Work Phone: -Outpatient Breast Imaging Start: 05-24-2025 End: 05-24-[address] Yonatan Courtney MD -Outpatient Breast Imaging Work Phone: Start: 05-24-2025 End: 05-24-2025 ambulatory Yonatan Courtney Facility:[facility] Start: 05-22-2025 End: 05-22-[address] Yonatan Courtney MD Work Phone: -Laboratory Specimen Start: 05-22-2025 End: 05-22-[address] Jaciel Gavin DO -Laboratory Specimen Work Phone: Start: 05-22-2025 End: 05-22-2025 ambulatory Jaciel Gavin Facility:[facility] Start: 05-20-2025 End: 05-20-[address] Yonatan Courtney MD Work Phone: -Laboratory Start: 05-20-2025 End: 05-20-[address] Jaciel Gavin DO -Laboratory Work Phone: Start: 05-20-2025 End: 05-20-2025 ambulatory Yonatan Courtney Facility:[facility] Start: 05-06-2025 End: 05-06-[address] Valentina Flores DC -[facility] Work Phone: Start: 05-06-2025 End: 05-06-[address] Yonatan Courtney MD Work Phone: [facility] Work Phone: Start: 04-29-2025 End: 04-29-2025 ambulatory JACIEL GAVIN Facility:[facility] Start: 04-09-2025 End: 04-09-[address] Valentina Flores DC -[facility] Work Phone: Start: 04-09-2025 End: 04-09-[address] Yonatan Courtney MD Work Phone: [facility] Work Phone: Start: 03-29-2025 End: 03-29-[address] Yonatan Courtney MD Work Phone: [facility] Work Phone: Start: 03-29-2025 End: 03-29-[address] Yonatan Courtney MD -Laboratory [facility] Start: 03-29-2025 End: 03-29-2025 ambulatory Yonatan Courtney Facility:[facility] Start: 03-22-2025 End: 03-22-[address] Yonatan Courtney MD Work Phone: [facility] Work Phone: Start: 03-22-2025 End: 03-22-[address] Yonatan Courtney MD -Laboratory, [facility] Start: 03-22-2025 End: 03-22-2025 ambulatory Yonatan Courtney Facility:[facility] Start: 03-11-2025 End: 03-11-[address] Valentina Flores DC -[facility] Work Phone: Start: 03-11-2025 End: 03-11-2025 ambulatory Yonatan Courtney Facility:[facility] Start: 02-11-2025 End: 02-11-[address] Valentina Flores DC -[facility] Work Phone: Start: 02-11-2025 End: 02-11-2025 ambulatory Yonatan Courtney Facility:[facility] Start: 01-10-2025 End: 01-10-[address] Valentina Flores DC -[facility] Work Phone: Start: 01-10-2025 End: 01-10-2025 ambulatory Valentina Flores Facility:[facility] Start: 12-17-2024 End: 12-17-[address] [facility] Start: 12-17-2024 End: 12-17-2024 ambulatory Yonatan Courtney Facility:[facility] Start: 11-26-2024 End: 11-26-2024 ambulatory Valentina Flores Facility:[facility] Start: 10-29-2024 End: 10-29-2024 ambulatory Yonatan Courtney Facility:[facility] Start: 10-01-2024 End: 10-01-2024 ambulatory Valentina Flores Facility:[facility] Start: 09-10-2024 End: 09-10-2024 ambulatory Yonatan Courtney Facility:[facility] Start: 09-03-2024 End: 09-03-2024 Emergency department patient visit Gaston Sanchez Facility:[facility] Start: 09-03-2024 End: 09-03-2024 ambulatory Valentina Flores Facility:[facility] Start: 08-06-2024 End: 08-06-2024 ambulatory Valentina Flores Facility:[facility] Start: 12-23-2023 End: 12-23-[address] Yonatan Courtney Work Phone: [facility] Work Phone: Start: 12-23-2023 End: 12-23-[address] Yonatan Courtney Work Phone: [facility] Start: 12-19-2023 End: 12-19-[address] Yonatan Courtney Work Phone: [facility] Work Phone: Start: 11-21-2023 End: 11-21-[address] Yonatan Courtney Work Phone: [facility] Work Phone: Start: 10-24-2023 End: 10-24-[address] Yonatan Courtney Work Phone: [facility] Work Phone: Start: 10-21-2023 End: 10-21-[address] Yonatan Courtney Work Phone: [facility] Start: 10-03-2023 End: 10-03-[address] Yonatan Courtney Work Phone: [facility] Work Phone: Start: 09-01-2023 End: 09-01-[address] Yonatan Courtney Work Phone: [facility] Work Phone: Start: 07-26-2023 End: 07-26-[address] Yonatan Courtney Work Phone: [facility] Work Phone: Start: 07-19-2023 End: 07-19-[address] Yonatan Courtney Work Phone: [facility] Work Phone: Start: 07-19-2023 End: 07-19-[address] Yonatan Courtney Work Phone: [facility]-Outpatient Breast Imaging Work Phone: Start: 07-15-2023 End: 07-15-[address] Yonatan Courtney Work Phone: [facility] Work Phone: Start: 07-15-2023 End: 07-15-[address] Yonatan Courtney Work Phone: [facility] Start: 07-11-2023 End: 07-11-[address] Yonatan Courtney Work Phone: [facility] Work Phone: Start: 07-01-2023 End: 07-01-[address] Yonatan Courtney Work Phone: [facility] Start: 06-27-2023 End: 06-27-[address] Yonatan Courtney Work Phone: [facility] Work Phone: Start: 05-30-2023 End: 05-30-[address] Yonatan Courtney Work Phone: [facility] Work Phone: Start: 05-19-2023 ambulatory Pcp (Historical) [facility] Start: 05-18-2023 Telephone encounter Asher burkett PA-C Work Phone: [facility] Comment on above: Results Start: 05-18-2023 End: 05-18-2023 ambulatory SCOOBY HENSON Facility:[facility] Start: 05-18-2023 End: 05-18-2023 Subsequent hospital visit by physician [facility] Dianna Work Phone: Radiology Comment on above: Foot pain, right [[id number]] Start: 05-17-2023 End: 05-17-2023 ambulatory YONATAN COURTNEY Facility:[facility] Start: 05-17-2023 End: 05-17-2023 Office outpatient visit 15 minutes Scooby Henson INSTRUMENT DESIGNER.SHOP AND ALTERATION TAILOR Work Phone: [facility] Comment on above: Foot pain, right (Pr imary Dx); Acute right ankle pain Start: 04-18-2023 End: 04-18-[address] Yonatan Courtney Work Phone: [facility] Work Phone: Start: 03-21-2023 End: 03-21-[address] Yonatan Courtney Work Phone: [facility] Work Phone: Start: 03-08-2023 End: 03-08-[address] Yonatan Courtney Work Phone: [facility] Work Phone: Start: 03-08-2023 End: 03-08-[address] Yonatan Courtney Work Phone: [facility] Start: 02-21-2023 End: 02-21-[address] Yonatan Courtney Work Phone: [facility] Start: 01-17-2023 End: 01-17-[address] Yonatan Courtney Work Phone: [facility] Start: 12-23-2022 End: 12-23-[address] Yonatan Courtney Work Phone: [facility] Work Phone: Start: 12-23-2022 End: 12-23-[address] Yonatan Courtney Work Phone: [facility] Start: 12-20-2022 End: 12-20-[address] Yonatan Corutney Work Phone: [facility] Start: 11-22-2022 End: 11-22-[address] Yonatan Courtney Work Phone: [facility] Start: 10-25-2022 End: 10-25-[address] Yonatan Courtney Work Phone: [facility] Start: 10-15-2022 Non-patient / Non-visit Dr. Yonatan Courtney Work Phone: [facility] Start: 10-15-2022 End: 10-15-[address] Yonatan Courtney Work Phone: [facility] Work Phone: Start: 10-15-2022 End: 10-15-[address] Yonatan Courtney Work Phone: [facility]-Cardiovascular Services Start: 09-27-2022 End: 09-27-[address] Yonatan Courtney Work Phone: [facility] Start: 09-20-[address] Yonatan Courtney Work Phone: [facility]-Physical Therapy Start: 09-16-2022 End: 09-16-[address] Yonatan Courtney Work Phone: [facility] Work Phone: Start: 09-16-2022 End: 09-16-[address] Yonatan Courtney Work Phone: [facility] Start: 08-31-2022 End: 08-31-[address] Yonatan Courtney Work Phone: [facility] Start: 07-20-2022 End: 07-20-[address] Yonatan Courtney Work Phone: [facility] Start: 06-17-2022 End: 06-17-[address] Yonatan Courtney Work Phone: [facility] Start: 06-14-2022 End: 06-14-[address] Yonatan Courtney Work Phone: [facility] Start: 05-31-2022 End: 05-31-[address] Yonatan Courtney Work Phone: [facility] Start: 05-19-2022 End: 05-19-[address] Yonatan Courtney Work Phone: [facility] Start: 04-14-2022 End: 04-14-[address] Yonatan Courtney Work Phone: [facility] Start: 04-09-2022 End: 04-09-2022 Patient encounter procedure Marium Elam MD Work Phone: Ophthalmology Comment on above: CME (cystoid macular edema), right (Primary Dx); Aoxruwr-okxchxs-uamhfglj syndrome of right eye; Pseudophakia Start: 03-18-2022 End: 03-18-[address] Yonatan Courtney Work Phone: [facility] Start: 03-16-2022 End: 03-16-[address] Yonatan Courtney Work Phone: [facility] Start: 02-16-2022 End: 02-16-[address] Yonatan Courtney Work Phone: [facility] Procedures Date Procedure Procedure Detail Performing Clinician Start: 07-26-2025 Radionuclide study of abdomen Dr. Yonatan medellin MD Work Phone: Start: 07-09-2025 Dual energy X-ray absorptiometry Dr. Zahra Courtney MD Work Phone: Start: 06-27-[address] Yonatan marquez MD Work Phone: Start: 06-09-2025 Blood pressure within normal parameters - no follow-up required Altagracia Tao MD Work Phone: Start: 06-09-2025 BMI documented as above normal parameters - follow-up documented Altagracia Tao MD Work Phone: Start: 06-09-2025 Current tobacco non-user cad cap copd pv dm Altagracia Tao MD Work Phone: Start: 06-09-2025 Documentation of current medications Altagracia Tao MD Work Phone: Start: 06-09-2025 Pain assessment documented as positive - follow-up documented Altagracia Tao MD Work Phone: Start: 06-06-2025 LYNCOS ARCH SUPP - 405 SPORT SERIES W/MET. PAD Altagracia Tao MD Work Phone: Start: 06-06-2025 Physical therapy management Altagracia Tao MD Work Phone: Start: 05-24-[address] Yonatan Levy Work Phone: Start: 05-22-2025 Creatinine measurement, [address] Yonatan Courtney MD Work Phone: Start: 05-22-[address] Yonatan Courtney MD Work Phone: Comment on above: Test Ordered: [id number] Metanephrines, Frac t. UrineNormetanephrine, Urine 278 ug/24 hr ES Reference Range: .This test was developed and its performance characteristicsdetermined by [facility]. It has not been cleared or approvedby the Food and Drug Administration.Reference Range:Adults: 110 - 720Normetanephrine/Creat. Ratio 186 ug/g ES Reference Range: .Reference Range:Adults: 109 - 596Metanephrine, Urine 109 ug/24 hr ES Reference Range: .This test was developed and its performance characteristicsdetermined by [facility]. It has not been cleared or approvedby the Food and Drug Administration.Reference Range:Adults: 35 - 278Metanephrine/Creatinine Ratio 73 ug/g ES Reference Range: .Reference Range:Adults: 22 - 94758 hr Creatinine, Urine 1489 mg/24 hr ES Reference Range: .Reference Range:Females: 800 - 1800Creatinine, Urine 37 mg/dL ES Reference Range: .Performed at: ES - [facility] [id number] [place], [place] [id number] Director: Lew Castañeda MD, Phone: [phone] at: CB - [facility] [id number] [place], [place] [id number] Director: Deshaun Hunter PhD, Phone: [phone] Start: 12-17-2024 Measurement of renal function Dr. Yonatan medellin MD Work Phone: Comment on above: GFR Calc Start: 07-19-[address] Yonatan Courtney Work Phone: Start: 07-01-2023 [address] examination of knee [address]. Yonatan Courtney Work Phone: Start: 05-18-2023 Radex ankle complete minimum 3 views Scooby Henson APRN.SHOP AND ALTERATION TAILOR Work Phone: Start: 06-17-2022 X-ray of cervical spine Dr. Yonatan Courtney Work Phone: Start: 05-31-2022 MRI of cervical spine Dr. Yonatan Courtney Work Phone: Start: 04-09-2022 Computerized ophthalmic imaging retina Marium Elam MD Work Phone: Start: 08-01-2017 End: 08-01-2017 Appl modality 1/> areas elec stimj unattended Valentina Randolph Dossi DC Work Phone: Start: 08-01-2017 End: 08-01-2017 Chiropractic manipulative tx spinal 3-4 regions Valentina Randolph Dossi DC Work Phone: Start: 08-01-2017 End: 08-01-2017 Chiropractic manipulation Valentina Randolph Dossi DC Work Phone: Start: 08-01-2017 End: 08-01-2017 Electric stimulation therapy Valentina Randolph Dos si DC Work Phone: Start: 04-28-2017 End: 04-28-2017 [...] End: 02-10-2017 Electric stimulation therapy Valentina B Dos si DC Work Phone: Start: 02-09-2017 End: 02-10-2017 Mechanical traction therapy Valentina B Kerline i DC Work Phone: Start: 01-31-2017 End: 01-31-2017 [...] End: 01-31-2017 Electric stimulation therapy Valentina B Dos si DC Work Phone: Start: 01-31-2017 End: 01-31-2017 Mechanical traction therapy Valentina B Kerline i DC Work Phone: Start: 01-24-2017 End: 01-24-2017 [...] End: 01-24-2017 Electric stimulation therapy Valentina B Dos si DC Work Phone: Start: 01-24-2017 End: 01-24-2017 Mechanical traction therapy Valentina B Kerline i DC Work Phone: Start: 01-17-2017 End: 01-17-2017 [...] End: 01-17-2017 Electric stimulation therapy Valentina B Dos si DC Work Phone: Start: 01-17-2017 End: 01-17-2017 Mechanical traction therapy Valentina B Kerline i DC Work Phone: Start: 01-05-2017 End: 01-05-2017 [...] End: 01-05-2017 Electric stimulation therapy Valentina B Dos si DC Work Phone: Start: 01-05-2017 End: 01-05-2017 Mechanical traction therapy Valentina B Kerline i DC Work Phone: Start: 12-29-2016 End: 12-29-2016 [...] 12-29-2016 End: 12-29-2016 Mechanical traction therapy Arianna lopez Start: 12-27-2016 End: 12-27-2016 Appl modality 1/> [...] End: 12-27-2016 Electric stimulation therapy Valentina B Dos si DC Work Phone: Start: 12-27-2016 End: 12-27-2016 Mechanical traction therapy Valentina B Kerline i DC Work Phone: Start: 12-22-2016 End: 12-22-2016 [...] End: 12-22-2016 Electric stimulation therapy Valentina B Dos si DC Work Phone: Start: 12-22-2016 End: 12-22-2016 Mechanical traction therapy Valentina B Kerline i DC Work Phone: Start: 12-20-2016 End: 12-20-2016 [...] 12-20-2016 End: 12-20-2016 Electric stimulation therapy Valentina Randolph Dos si DC Work Phone: Start: 12-20-2016 End: 12-20-2016 Mechanical traction therapy Valentina Randolph Kerline i DC Work Phone: Start: 12-15-2016 End: 12-16-2016 Chiropractic manipulative tx spinal 3-4 regions Valentina Randolph Dossi DC Work Phone: Start: 12-15-2016 End: 12-16-2016 Chiropractic manipulation Valentina Randolph Dossi DC Work Phone: Plan of Treatment Date Care Activity Detail Author Start: 12-23-2032 Urine microalbumin profile DTaP,Tdap,Td Vaccine (3 - Td or Tdap) [facility] Start: 05-24-2025 Screening mammography [facility] Start: 05-22-2025 Procedure [facility] Start: 07-15-2024 Covid-19 Vaccine ( season) Covid-19 Vaccine ( season) [facility] Start: 07-15-2024 Influenza vaccination Influenza Vacc ine (#1) [facility] Start: 11-14-2023 Advance Directive Discussion Advance Directive Discussion [facility] Start: 09-16-2023 Pneumococcal Vaccine : 65+ (2 of 2 - PCV) Pneumococcal Vaccine: 65+ (2 of 2 - PCV) [facility] Start: 07-15-2023 Influenza vaccination INFLUENZA (#1) [facility] Start: 04-24-2023 End: 10-01-2023 OCT MACULA CIRRUS OU (BOTH EYES) OCT MACULA CIRRUS OU (BOTH EYES) OPHT Imaging Routine CME (cystoid macular edema), right Ovzhwtw-rylfnmj-rifwbav a syndrome of right eye Pseudophakia Expected: 04/24/2023, Expires: 10/01/2023 [facility] Work Phone: Comment on above: Expected: 04/24/2023 , Expires: 10/01/2023 Start: 11-14-2022 ADVANCE DIRECTIVE DISCUSSION ADVANCE DIRECTIVE DISCUSSION [facility] Start: 11-14-2022 DEPRESSION ASSESSMENT DEPRESSION ASS ESSMENT [facility] Start: 2022 BONE DENSITY BONE DENSITY [facility] Start: 2022 PNEUMOCOCCAL: 65+ (1 - PCV) PNEUMOCOCCAL: 65+ (1 - PCV) [facility] Start: 2022 Screening for osteoporosis Bone Density Screening [facility] Start: 05-13-2022 COVID-19 VACCINE (6 - Booster for Moderna series) COVID-19 VACCINE (6 - Booster for Moderna series) [facility] Start: 08-01-2017 End: 08-01-2017 Appointment Appointment [facility] Work Phone: Start: 2017 RSV Vaccine (1 - 1-d ose 60+ series) RSV Vaccine (1 - 1-dose 60+ series) [facility] Start: 04-28-2017 End: 04-28-2017 Appointment Appointment [facility] Work Phone: Start: 02-09-2017 End: 02-10-2017 Follow up Appt 1x/week Follow up Appt 1x/week [facility] Work Phone: Start: 02-09-2017 End: 02-10-2017 Follow up Appt 1x/week Follow up Appt 1x/week [facility] Work Phone: Start: 01-31-2017 End: 01-31-2017 Follow up Appt 2x/week Follow up Appt 2x/week [facility] Work Phone: Start: 01-31-2017 End: 01-31-2017 [...] up Appt 3x/week Follow up Appt 3x/week [facility] Work Phone: Start: 12-13-2016 End: 12-15-2016 Follow up Appt 3x/week Follow up Appt 3x/week [facility] Work Phone: Start: 12-13-2016 End: 12-15-2016 Radex spine cervical 2 or 3 views X-Ray, Spine, Cervical 2-3 views [facility] Work Phone: Start: 12-13-2016 End: 12-15-2016 Follow up Appt 3x/week Follow up Appt 3x/week [facility] Work Phone: Start: 12-13-2016 End: 12-15-2016 X-ray exam of neck spine X-Ray, Spine, Cervical 2-3 views [facility] Work Phone: Start: 01-03-2009 PAP TESTING PAP TESTING [facility] Start: 2007 SHINGRIX VACCINE (1 of 2) SHINGRIX VACCINE (1 of 2) [facility] Start: 2002 COLOGUARD (FIT-DNA) COLOGUARD (FIT-D NA) [facility] Start: 2002 Colonoscopy COLONOSCOPY [facility] Start: 2002 COLORECTAL CANCER SCREENING COLORECTAL CANCER SCREENING [facility] Start: [address] COLONOGRAPHY [facility] Start: 2002 DIABETES SCREEN DIABETES SCREEN [facility] Start: 2002 Diabetes Screening Diabetes Screenin g [facility] Start: 2002 FECAL OCCULT BLOOD FECAL OCCULT BLOO D [facility] Start: 2002 Lipid panel Lipid Screening [facility] Start: 2002 LIPID SCREEN LIPID SCREEN [facility] Start: 2002 Screening for malign ant neoplasm of colon [facility] Start: [address] [facility] Start: 1997 Mammography MAMMOGRAM [facility] Start: 1997 Screening for malign ant neoplasm of breast Mammogram Screening [facility] Start: 1987 HPV TESTING HPV TESTING [facility] Start: 1976 Urine microalbumin profile DTAP,TDAP,TD (1 - Tdap) [facility] Start: 1975 Anxiety Screening Anxiety Screening [facility] Start: 1975 Depression Screening Depression Scre ening [facility] Start: 1975 HEPATITIS C SCREENING HEPATITIS C [facility] Start: 1975 Hepatitis C screening Hepatitis C [facility] Start: 1975 HIV SCREENING HIV SCREENING [facility] Start: 1969 Adult depression screening assessment DEPRESSION SCREENING [facility] Cortisol Free [Mass/volume] in 24 hour Urine [facility] Cortisol Free [Mass/volume] in Urine [facility] End: 2024 XR ANKLE GENERAL 3V AP/LAT/OBL RIGHT XR ANKLE GENERAL 3V AP/LAT/OBL RIGHT Radiology STAT Foot pain, right Acute right ankle pain 1 Occurrences starting 05/17/2023 until 2024 [facility] Work Phone: Comment on above: 1 Occurrences starti ng 05/17/2023 until 2024 End: 2024 XR FOOT GENERAL 3V AP/LAT/OBL RIGHT XR FOOT GENERAL 3V AP/LAT/OBL RIGHT Radiology STAT Foot pain, right Acute right ankle pain 1 Occurrences starting 05/17/2023 until 2024 [facility] Work Phone: Comment on above: 1 Occurrences starti ng 05/17/2023 until 2024 Immunizations Immunization Date Immunization Notes Care Provider Kennedy montemayor 09-13-2022 influenza virus vaccine, unspecified formulation Xr Dianna Work Phone: [facility] 08-19-2012 influenza virus vaccine, unspecified formulation Marium Fishman MD Work Phone: [facility] 08-16-2009 influenza virus vaccine, unspecified formulation Marium Fishman MD Work Phone: [facility] Work Phone: 09-13-2006 influenza virus vaccine, unspecified formulation Marium Fishman MD Work Phone: [facility] Work Phone: Payers Date Payer Category Payer Self-pay [id number] 2022 Medicare [id number] 2022 Medicare MMO MEDICARE MMO MEDADVANTAGE HMO [id number] 2022-Present [phone] [address] [place] [address] O [id number] 2020 Unknown [employer] [id number] 2020-Present [phone] [address] [place] [address] O [id number] 1957 Unknown [id number] 2.16.840.1.932088.3.579.2.62 7 Unknown [id number] Unknown [facility] PACKAGE PLAN [id number] Unknown [id number] 2.16.840.1.930468.3.579.2.46 2 Unknown [id number] 2.16.840.1.830106.3.579.2.46 2 Unknown [id number] 2.16.840.1.051596.3.579.2.46 2 Unknown [id number] 2.16.840.1.918921.3.579.2.46 2 Unknown [id number] 2.16.840.1.332542.3.579.2.46 2 Unknown [id number] 2.16.840.1.575501.3.579.2.46 2 Unknown [id number] 2.16.840.1.288498.3.579.2.46 2 Unknown [id number] 2.16.840.1.427737.3.579.2.46 2 Unknown [id number] 2.16.840.1.929717.3.579.2.46 2 Unknown [id number] 2.16.840.1.440133.3.579.2.46 2 Unknown [id number] 2.16.840.1.140833.3.579.2.46 2 Unknown [id number] 2.16.840.1.600042.3.579.2.46 2 Unknown [id number] 2.16.840.1.989176.3.579.2.46 2 Unknown [id number] 2.16.840.1.907621.3.579.2.46 2 Unknown [id number] 2.16.840.1.052179.3.579.2.46 2 Unknown [id number] 2.16.840.1.212824.3.579.2.46 2 Unknown [id number] 2.16.840.1.996298.3.579.2.46 2 Unknown [id number] 2.16.840.1.464524.3.579.2.46 2 Unknown [id number] 2.16.840.1.185402.3.579.2.46 2 Unknown [id number] 2.16.840.1.379700.3.579.2.46 2 Unknown [id number] 2.16.840.1.046000.3.579.2.46 2 Unknown [id number] 2.16.840.1.651641.3.579.2.46 2 Unknown [id number] 2.16.840.1.854180.3.579.2.46 2 Unknown [id number] 2.16.840.1.824689.3.579.2.46 2 Unknown [id number] 2.16.840.1.174182.3.579.2.46 2 Unknown [id number] 2.16.840.1.747466.3.579.2.46 2 Unknown [id number] 2.16.840.1.311521.3.579.2.46 2 Unknown [id number] 2.16.840.1.947040.3.579.2.46 2 Social History Date Type Detail Facility Start: 05-17-2023 End: 02-11-2025 Tobacco smoking status NHIS Ex-smoker [facility] Work Phone: End: 08-12-1987 History of tobacco use Current smoker [facility] Start: 04-09-2022 End: 05-17-2023 Alcohol intake Current non-drinker of alcohol (finding) [facility] Start: 1955 Sex Assigned At Not on file C [facility] Start: 03-30-2022 End: 04-09-2022 Exposure to SARS-CoV-2 (event) Not sure [facility] Start: 05-20-2022 End: 12-19-2023 Tobacco smoking status WVIS Unknown if ever smoked [facility] Start: 1955 Sex Assigned At Female W [facility] End: 08-12-1987 History of tobacco use Cigarette Smoker [facility] Start: 05-17-2023 Tobacco use and exposure Smokeless tobacco non-user [facility] Start: 12-10-2022 End: 05-17-2023 History of Social function [facility] Start: 05-17-2023 End: 06-06-2025 Tobacco use panel [facility] National Score (1-100), lower number is lower risk 68 [facility] Medical Equipment Procedure Code Equipment Code Equipment Origin al Text Equipment Identifier Dates Lens Acrysof 6mm +21.5 Diopter 10 D Biconvex Blue Acrylic 13mm Iol - [id number] Start: 04-27-2021 Comment on above: Description: -1.5 Goals Date Patient Goal Desired Activity /State Clinical Notes 04-09-2022 to 06-28-2025 Note Date & Type Note Facility 06-28-2025 Radiology Diagnostic study note [facility] Imaging Services [address] [place], [place] [address] Abdomen Limited MR#: [id number] Acct: [id number] Name: RACHELLE BURGOS Rep #: [id number] : 1955 F 70 From: Shaheed Galeano MD PCP: Dr. Yonatan Courtney MD Status: REG C LI Study:Abdomen Limited Date of Exam: 06/14 03/08 Exam# [id number] Ordering Dr: Yonatan Courtney MD PROCEDURE: ABDOMEN LIMITED 06/27/2025 REASON FOR EXAM: RUQ PAIN COMPARISON: None FINDINGS: Liver: Diffusely echogenic suggesting fatty infiltration. The liver measures 16.6 cm. Gallbladder: No stones sludge wall thickening or tenderness. Common bile duct: Normal measuring 4 mm. . Pancreas: Normal Other: Visualized portions of the right kidney are unremarkable. No right upperquadrant ascites. US/Abdomen Limited IMPRESSION: Fatty infiltration of the liver. Reading Location: [facility] CC: Dr. Yonatan Courtney MD ~ Matrix Repairer: Signed [facility] 05-29-2025 Procedure note [facility] 04-09-2025 Evaluation note Diagnosis Onset Date Resolution Segmental and somatic dysfunction of cervical region acute April 09, 2025 1:42pm Segmental and somatic dysfunction of lumbar region acute April 09, 2025 1:42pm Segmental and somatic dysfunction of pelvic region acute April 09, 2025 1:42pm Segmental and somatic dysfunction of thoracic region acute April 09, 2025 1:42pm Cervical pain chronic April 09, 2 025 1:42pm Degenerative disc disease, cervical chronic [...] disc disease, cervical chronic May 06 12:54pm Segmental and somatic dysfunction of cervical region acute June 03, 2025 1:18pm Segmental and somatic dysfunction of lumbar region acute June 03, 2025 1:18pm Segmental and somatic dysfunction of pelvic region acute June 03, 2025 1:18pm Segmental and somatic dysfunction of thoracic region acute June 03, 2025 1:18pm 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 chronic June 03, 2025 1:18pm Segmental and somatic dysfunction of cervical region acute July 01 1:48pm Segmental and somatic dysfunction of lumbar region acute July 01 1:48pm Segmental and somatic dysfunction of pelvic region acute July 01 1:48pm Segmental and somatic dysfunction of thoracic region acute July 01 1:48pm 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 July 01 1:48pm [facility] Work Phone: 1(172) 148-636805-27-2025 Evaluation note* Diagnosis Onset Date Resolution Status Admit Date Segmental and somatic dysfunction of cervical region acute M 2024 1:42pm Segmental and somatic dysfunction of lumbar region acute April 09, 2025 1:42pm Segmental and somatic dysfunction of pelvic region acute April 09, 2025 1:42pm Segmental and somatic dysfunction of thoracic region acute M 2024 1:42pm Cervical pain chronic April 09, 2 025 1:42pm Degenerative disc disease, cervical chronic April 09, 2025 1 :42pm Neck pain acute May 06 12:54pm Segmental and somatic dysfunction of cervical region acute J une 2024 12:54pm Segmental and somatic dysfunction of lumbar region acute Glenn e 2024 12:54pm Segmental and somatic dysfunction of pelvic region acute Glenn e 2024 12:54pm Segmental and somatic dysfunction of thoracic region acute J une 2024 12:54pm Degenerative disc disease, cervical chronic May 06, 2025 12:54pm Segmental and somatic dysfunction of cervical region acute J rosa [email or web address] 1:18pm Segmental and somatic dysfunction of lumbar region acute May 1:18pm Segmental and somatic dysfunction of pelvic region acute May 1:18pm Segmental and somatic dysfunction of thoracic region acute J rosa [email or web address] 1:18pm 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 chronic June 03, 2025 1:18pm Segmental and somatic dysfunction of cervical region acute A ugust 2024 1:48pm Segmental and somatic dysfunction of lumbar region acute Aug ust 2024 1:48pm Segmental and somatic dysfunction of pelvic region acute Jun ust 2024 1:48pm Segmental and somatic dysfunction of thoracic region acute A ugust 2024 1:48pm 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 June 1:48pm Segmental and somatic dysfunction of cervical region acute S eptember 2024 2:52pm Segmental and somatic dysfunction of lumbar region acute Sep tember 2024 2:52pm Segmental and somatic dysfunction of pelvic region acute Sep tember 2024 2:52pm Segmental and somatic dysfunction of thoracic region acute S eptember 2024 2:52pm 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 July 29, 2025 2:52pm Degenerative disc disease, cervical chronic July 29, 2025 2:52pm 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 chronic July 29, 2025 2:52pm [facility] Work Phone: 1(280) 342-102904-28-2025 Evaluation note* Diagnosis Onset Date Resolution Status [...] somatic dysfunction of thoracic region acute M ay 2024 1:42pm Cervical pain chronic April 09, 025 1:42pm Degenerative disc disease, cervical chronic April 09, 2025 1 :42pm Neck pain acute May 06 12:54pm Segmental and somatic dysfunction of cervical region acute J une 2024 12:54pm Segmental and somatic dysfunction of lumbar region acute Glenn e 2024 12:54pm Segmental and somatic dysfunction of pelvic region acute Glenn e 2024 12:54pm Segmental and somatic dysfunction of thoracic region acute J une 2024 12:54pm Degenerative disc disease, cervical chronic May 06, 2025 12:54pm Segmental and somatic dysfunction of cervical region acute J rosa m 2024 1:18pm Segmental and somatic dysfunction of lumbar region acute May 1:18pm Segmental and somatic dysfunction of pelvic region acute May 1:18pm Segmental and somatic dysfunction of thoracic region acute J rosa m2024 1:18pm Disorder of intervertebral d isc at C5-C6 level with radiculopathy chronic June 03, 2025 1:18pm Segmental and somatic dysfunction of cervical region acute A ugust 2024 1:48pm Segmental and somatic dysfunction of lumbar region acute Aug ust 2024 1:48pm Segmental and somatic dysfunction of pelvic region acute Aug ust 2024 1:48pm Segmental and somatic dysfunction of thoracic region acute A ugust 2024 1:48pm [facility] Work Phone: 1(399) 673-179104-28-2025 Evaluation note* Diagnosis Onset Date Resolution Status [...] somatic dysfunction of thoracic region acute M ay 2024 1:42pm Cervical pain chronic April 09, 1:42pm Degenerative disc disease, cervical chronic April 09, 2025 1 :42pm Neck pain acute May 06 12:54pm Segmental and somatic dysfunction of cervical region acute J une 2024 12:54pm Segmental and somatic dysfunction of lumbar region acute Glenn e 2024 12:54pm Segmental and somatic dysfunction of pelvic region acute Glenn e 2024 12:54pm Segmental and somatic dysfunction of thoracic region acute J une 2024 12:54pm Degenerative disc disease, cervical chronic May 06, 2025 12:54pm Segmental and somatic dysfunction of cervical region acute J rosa m 2024 1:18pm Segmental and somatic dysfunction of lumbar region acute May 1:18pm Segmental and somatic dysfunction of pelvic region acute May 1:18pm Segmental and somatic dysfunction of thoracic region acute J rosa m 2024 1:18pm Disorder of intervertebral d isc at C5-C6 level with radiculopathy chronic June 03, 2025 1:18pm Segmental and somatic dysfunction of cervical region acute A ugust 2024 1:48pm Segmental and somatic dysfunction of lumbar region acute Aug ust 2024 1:48pm Segmental and somatic dysfunction of pelvic region acute Jun us2024 1:48pm Segmental and somatic dysfunction of thoracic region acute A ugust 2024 1:48pm Degenerative disc disease (D DD) of lumbar region with axial back pain witho chronic July 01 1:48pm [facility] Work Phone: 1(490) 606-185003-31-2025 Evaluation note* Diagnosis Onset Date Resolution Status Admit Date Segmental and somatic dysfunction of cervical region acute M arch 2024 1:38pm Segmental and somatic dysfunction of lumbar region acute [facility] 2024 1:38pm Segmental and somatic dysfunction of pelvic region acute [facility] 2024 1:38pm Segmental and somatic [...] somatic dysfunction of pelvic region acute Apr mn 2024 1:05pm Segmental and somatic dysfunction of thoracic region acute A pril 2024 1:05pm Degenerative disc disease, cervical chronic March 11, 2025 1:05pm Disorder of intervertebral d isc at C5-C6 level with radiculopathy chronic March 11, 2025 1:05pm Segmental and somatic dysfunction of cervical region acute M 2024 1:42pm Segmental and somatic dysfunction of lumbar region acute April 09, 2025 1:42pm Segmental and somatic dysfunction of pelvic region acute April 09, 2025 1:42pm Segmental and somatic dysfunction of thoracic region acute [facility] 2024 1:42pm Cervical pain chronic April 09, 2 025 1:42pm Degenerative disc disease, cervical chronic April 09, 2025 1 :42pm Neck pain acute May 06 12:54pm Segmental and somatic dysfunction of cervical region acute J une 2024 12:54pm Segmental and somatic dysfunction of lumbar region acute Glenn e 2024 12:54pm Segmental and somatic dysfunction of pelvic region acute Glenn e 2024 12:54pm Segmental and somatic dysfunction of thoracic region acute J une 2024 12:54pm Degenerative disc disease, cervical chronic May 06, 2025 12:54[facility] Work Phone: 1(201) 461-586803-31-2025 Evaluation note* Diagnosis Onset Date Resolution Status Admit Date Segmental and somatic dysfunction of cervical region acute M arch 2024 1:38pm Segmental and somatic dysfunction of lumbar region acute Mar 2024 1:38pm Segmental and somatic dysfunction of pelvic region acute Mar 2024 1:38pm Segmental and [...] somatic dysfunction of cervical region acute M 2024 1:42pm Segmental and somatic dysfunction of lumbar region acute April 09, 2025 1:42pm Segmental and somatic dysfunction of pelvic region acute April 09, 2025 1:42pm Segmental and somatic dysfunction of thoracic region acute M 2024 1:42pm Cervical pain chronic April 09, 025 1:42pm Degenerative disc disease, cervical chronic April 09, 2025 1 :42pm Neck pain acute May 06 12:54pm Segmental and somatic dysfunction of cervical region acute J une 2024 12:54pm Segmental and somatic dysfunction of lumbar region acute Glenn e 2024 12:54pm Segmental and somatic dysfunction of pelvic region acute Glenn e 2024 12:54pm Segmental and somatic dysfunction of thoracic region acute J une 2024 12:54pm Degenerative disc disease, cervical chronic May 06, 2025 12:54pm Segmental and somatic dysfunction of cervical region acute J rosa m 2024 1:18pm Segmental and somatic dysfunction of lumbar region acute May 1:18pm Segmental and somatic dysfunction of pelvic region acute May 1:18pm Segmental and somatic dysfunction of thoracic region acute J rosa m2024 1:18pm [facility] [employer] [facility] Work Phone: 1(601) 228-669503-31-2025 Evaluation note* Diagnosis Onset Date Resolution Status Admit Date Segmental and somatic dysfunction of cervical region acute M arch 2024 1:38pm Segmental and somatic dysfunction of lumbar region acute Mar 2024 1:38pm Segmental and somatic dysfunction of pelvic region acute Mar 2024 1:38pm Segmental and [...] somatic dysfunction of thoracic region acute M ay 2024 1:42pm Cervical pain chronic April 09, 025 1:42pm Degenerative disc disease, cervical chronic April 09, 2025 1 :42pm Neck pain acute May 06 12:54pm Segmental and somatic dysfunction of cervical region acute J une 2024 12:54pm Segmental and somatic dysfunction of lumbar region acute Glenn e 2024 12:54pm Segmental and somatic dysfunction of pelvic region acute Glenn e 2024 12:54pm Segmental and somatic dysfunction of thoracic region acute J une 2024 12:54pm Degenerative disc disease, cervical chronic May 06, 2025 12:54pm Segmental and somatic dysfunction of cervical region acute J rosa m 2024 1:18pm Segmental and somatic dysfunction of lumbar region acute May 1:18pm Segmental and somatic dysfunction of pelvic region acute May 1:18pm Segmental and somatic dysfunction of thoracic region acute J rosa m2024 1:18pm Disorder of intervertebral d isc at C5-C6 level with radiculopathy chronic June 03, 2025 1:18pm [facility] Work Phone: 1(490) 984-102902-27-2025 Evaluation note* Diagnosis Onset Date Resolution Status [...] and somatic dysfunction of lumbar region acute [facility] 2024 1:38pm Segmental and somatic dysfunction of pelvic region acute [facility] 2024 1:38pm Segmental and somatic dysfunction of thoracic region acute M arch 2024 1:38pm Degenerative disc disease, cervical chronic [...] with radiculopathy chronic March 11, 2025 1:05pm [facility] Work Phone: 1(888) 992-889402-27-2025 Evaluation note* Diagnosis Onset Date Resolution Status Admit Date Cervical pain acute January 102024 11:51am Segmental and somatic dysfunction of cervical region acute F ebruary 2024 11:51am Segmental and somatic dysfunction of lumbar region acute Feb ruary 2024 11:51am Segmental and somatic dysfunction of pelvic region acute Feb ruary 2024 11:51am Segmental and [facility] Disorder of intervertebral d isc at C5-C6 level with radiculopathy chronic January 10 11:51am Cervical pain acute February 11, 2025 1:38pm Segmental and somatic dysfunction of cervical region acute [facility] 2024 1:38pm Segmental and somatic dysfunction of lumbar region acute [facility] 2024 1:38pm Segmental and somatic dysfunction of pelvic region acute [facility] 2024 1:38pm Segmental and somatic dysfunction of thoracic region acute [facility] 2024 1:38pm Degenerative disc disease, cervical chronic [...] somatic dysfunction of thoracic region acute M ay 2024 1:42pm Degenerative disc disease, cervical chronic April 09, 2025 1 :42pm Disorder of intervertebral d isc at C5-C6 level with radiculopathy chronic April 09, 2025 1 :42pm [facility] Work Phone: 1(170) 402-733902-27-2025 Evaluation note* Diagnosis Onset Date Resolution Status [...] with radiculopathy chronic January 10, 025 11:51am Segmental and somatic dysfunction of cervical region acute M arch 2024 1:38pm Segmental and somatic dysfunction of lumbar region acute [facility] 2024 1:38pm Segmental and somatic dysfunction of pelvic region acute [facility] 2024 1:38pm Segmental and somatic [...] somatic dysfunction of thoracic region acute M ay 2024 1:42pm Cervical pain chronic April 09, 2 025 1:42pm Degenerative disc disease, cervical chronic [...] disease, cervical chronic May 06, 2025 12:54pm [place] [employer] Work Phone: 1(442) 685-502807-06-2023 NotePatient Outreach ([facility]) RACHELLE BURGOS ([id number]) 1955 F Date Time Provider Department 05/19/23 [...] visits Payer: Payor: MMO MEDICARE / Plan: O MEDADAccess [employer] HMO / Product Type: HMO / Care [...] Date Reviewed: 05/17/2023 Reviewed by: Scooby Henson APRN.[employer] TAILOR - Fully Assessed Prescriptions as of 05/19/2023 - Srbds-3-FFG-EPA-Fish Oil 300-1,000 mg cap Take by mouth once daily. - ergocalciferol, vitamin D2, (VITAMIN D2 ORAL) Take by mouth once daily. - COQ10, LIPOSOMAL UBIQUINOL, ORAL Take by mouth once daily. - glucosamine/msm/csa/amelia/qap809 (EMCEXWJDRO-WGNRX-JZT-AMELIA-115HC ORAL) Take by mouth once daily. - [...] 07/16/2010 Encounter Status:Closed by CHERYL HENLEY on 05/19/23[facility] 05-19[facility]2023 NoteHNO ID: [id number] Author: Cheryl Henley Service: ? Author Type: [...] Signature: Cheryl Henley May 19, 2023 10:00 [facility]07-06-2023 History of Present illness Narrative* Cheryl Henley - 05/19/2023 10:00 AM EDT POPULATION HEALTH [...] 19, 2023 10:00 AM [facility] Miscellaneous Notes* Telephone Encounter - Amanda [...] podiatry if not improving. documented in this encounterMartin [facility]-2023 NoteHNO ID: [id number] Author: Sushma Del Cid RT(R) Service: Nuclear Medicine Author Type: Technologist Type: Progress Notes Filed: 05/18/2023 8:57 AM Note Text: Radiology Service Progress Note PATIENT NAME: Rachelle Burgos DATE OF SERVICE: May 18, 2023 TIME: [...] BY: RT Aureliano(R) May 18, 2023 8:47 [facility]07-05-2023 History of Present illness Narrative* Sushma Del Cid RT(R) - 05/18/2023 8:50 AM EDT Radiology Service Progress Note PATIENT NAME: Rachelle Burgos DATE OF SERVICE: May 18, 2023 TIME: [...] 18, 2023 8:47 AM documented in [facility] encounterMartin [facility]07-[facility]-2023 NoteHNO ID: [id number] Author: Scooby Henson APRN.[employer] TA[employer]OR Service: ? Author Type: Nurse Practitioner Type: [...] Date Allergic rhinitis Detached retina, right Glaucoma Zpxnftu-mxgphxl-bvicldsi syndrome of right eye PAST SURGICAL HISTORY Procedure Laterality Date ARTHROSCOPY KNEE; W/ FIXATION bone spur left, torn meniscus on right EXCHANGE OF INTRAOCULAR LENS S/p IOL Exchange/PPV OD:04/27/2021 PAST SURGICAL HISTORY OF LASIK both eyes. VAGINAL HYSTERECTOMY UTERUS 250 GM/< Hysterectomy, vaginal VITRECTOMY,MECHANICAL S/p IOL Exchange/PPV OD:04/27/2021 ALLERGIES Adhesive, Penicillins, Seasonal Allergies, and Xarelto [Rivaroxaban] MEDICATIONS Zikpz-3-FGL-EPA-Fish Oil 300-1,000 mg cap Take by mouth once daily. ergocalciferol, vitamin D2, (VITAMIN D2 ORAL) Take by mouth once daily. COQ10, LIPOSOMAL UBIQUINOL, ORAL Take by mouth once daily. glucosamine/msm/csa/amelia/mcg245 (PAXKJMIZFE-TIRQB-OLC-AMELIA-115HC ORAL) Take by mouth once daily. prednisoLONE [...] tenderness or bony tende (more content not included)...[facility]07-04-2023 History of Present illness Narrative* Scooby Henson APRN.[employer]OR - 05/17/2023 8:26 AM EDT Subjective HPI [...] Date Allergic rhinitis Detached retina, right Glaucoma Utsdmqj-czgyqiu-mvmtoiad syndrome of right eye PAST SURGICAL HISTORY Procedure Laterality Date ARTHROSCOPY KNEE; W/ FIXATION bone spur left, torn meniscus on right EXCHANGE OF INTRAOCULAR LENS S/p IOL Exchange/PPV OD:04/27/2021 PAST SURGICAL HISTORY OF LASIK both eyes. VAGINAL HYSTERECTOMY UTERUS 250 GM/< Hysterectomy, vaginal VITRECTOMY,MECHANICAL S/p IOL Exchange/PPV OD:04/27/2021 ALLERGIES Adhesive, Penicillins, Seasonal Allergies, and Xarelto [Rivaroxaban] MEDICATIONS Siimt-7-CFI-EPA-Fish Oil 300-1,000 mg cap Take by mouth once daily. ergocalciferol, vitamin D2, (VITAMIN D2 ORAL) Take by mouth once daily. COQ10, LIPOSOMAL UBIQUINOL, ORAL Take by mouth once daily. glucosamine/msm/csa/amelia/mxc706 (QMUUCNXQYL-PQSFF-JQJ-AMELIA-115HC ORAL) Take by mouth once daily. prednisoLONE [...] of care. This note was generated using Solmentum software. It may contain errors in wording, punctuation, or spelling. Scooby Henson APRN.RAIN documented in this encounterMartin [facility]05-27-[facility]22 Instructions* Patient Instructions* Marium Elam V, [...] appointment. To schedule during office hours, call [phone] After office hours you may call [phone] and ask to speak with the station baggage porter precinct captain. documented in this encounterMartin [facility] History of Present illness Narrative* Marium [...] have AMD Gtts: AT ASSESSMENT AND PLAN: Wtcjihx-pdsrdutu-itmcdja (UGH) syndrome, right eye - history of [...] with Dr. Clarence Wayne (retina specialist in [place]) - unclear what indication was for second [...] no trauma, (+) prior surgery (LASIK) - [place] negative, No holes or tears - Retinal detachment precautions reviewed with patient Hx of LASIK Both Eyes 2006, Myopia - was corrected at near for Right Eye prior to RD/CEIOL (see above) - Unsure which precinct captain but pt thinks she could find out - no prematurity, no FHx I have confirmed and edited as necessary the relevant ophthalmic history, ROS, and the neuro exam findings as obtained by others. I have seen and examined Rachelle Burgos. I have discussed the case and the management of this patient's care with the Resident/Fellow, if applicable. I also have reviewed and agree with the assessment and plan as stated above and agree withall of its relevant components. Marium Elam MD documented in this encounterMartin [facility]* Diagnosis CME (cystoid macular edema), right- Primary Chblmag-miapssb-xtyurnpx syndrome of right eye Pseudophakia Lens replaced by other means [facility] Diagnosis Onset Date Resolution [...] level with radiculopathy chronic Back pain noneactive [facility] Work Phone: Evaluation note* Diagnosis Onset Date [...] level with radiculopathy chronic Back pain noneactive [facility] Work Phone: Evaluation note* Diagnosis Onset Date [...] level with radiculopathy chronic Back pain noneactive [facility] Work Phone: Evaluation note* Diagnosis Onset Date [...] level with radiculopathy chronic Back pain noneactive [facility] Work Phone: Evaluation note* Diagnosis Foot pain, right- Primary Pain in limb Acute right ankle pain [facility] encounter [facility]* Diagnosis Acute right ankle pain- Primary [facility]* Diagnosis Onset Date [...] radiculopathy chronic Back pain noneactive Hemorrhoids noneactive [facility] Work Phone: Evaluation note* Diagnosis Onset Date [...] level with radiculopathy chronic Back pain noneactive [facility] Work Phone: Evaluation note* Diagnosis Onset Date [...] level with radiculopathy chronic Back pain noneactive [facility] Work Phone: Evaluation note* Diagnosis Foot pain, right Pain in limb Acute right ankle pain documented in this encounter [facility] for referral (narrative)* Diagnostic Procedure Only (Urgent) - Pending Review Specialty Diagnoses / Procedures Referred By Lukasz croft Referred To Contact XR IMAGING Diagnoses Foot pain, right Acute right ankle pain Procedures XR ANKLE GENERAL 3V AP/LAT/OBL RIGHT RADEX ANKLE COMPLETE MINIMUM 3 VIEWS Scooby Henson APRN.CNP [address] [place] [address] Xr Imaging Referral ID Status Reason Start Date Expiration Date Visits Requested Visits Authorized [id number] Pending Review Auto-Generat ed Referral 05/17/2023 2024 1 1 * Diagnostic Procedure Only (Urgent) - Pending Review Specialty Diagnoses / Procedures Referred By Contac t Referred To Contact XR IMAGING Diagnoses Foot pain, right Acute right ankle pain Procedures XR FOOT GENERAL 3V AP/LAT/OBL RIGHT RADEX FOOT COMPLETE MINIMUM 3 VIEWS Scooby Henson APRN.[employer]OP [employer] ALTERATION TAILOR [address] [place] [address] Xr Imaging Referral ID Status Reason Start Date Expiration Date Visits Requested Visits Authorized [id number] Pending Review Auto-Generat ed Referral 05/17/2023 2024 1 1 [facility] for referral (narrative)* Diagnostic Procedure Only (Urgent) - Closed Specialty Diagnoses / Procedures Referred By Contac t Referred To Contact XR IMAGING Diagnoses Foot pain, right Acute right ankle pain Procedures XR ANKLE GENERAL 3V AP/LAT/OBL RIGHT RADEX ANKLE COMPLETE MINIMUM 3 VIEWS Scooby Henson APRN.[employer] ALTERATION TAILOR [address] [place] [address] [place] [address] Referral ID Status Reason Start Date Expiration Date V isits Requested Visits Authorized [id number] Closed Auto-Generate d Referral 05/17/2023 2024 1 1 * Diagnostic Procedure Only (Urgent) - Closed Specialty Diagnoses / Procedures Referred By Contac t Referred To Contact XR IMAGING Diagnoses Foot pain, right Acute right ankle pain Procedures XR FOOT GENERAL 3V AP/LAT/OBL RIGHT RADEX FOOT COMPLETE MINIMUM 3 VIEWS Scooby Henson APRN.[employer] ALTERATION TAILOR [address] [place] [address] [place] [address] Referral ID Status Reason Start Date Expiration Date V isits Requested Visits Authorized [id number] Closed Auto-Generate d Referral 05/17/2023 2024 1 1 [facility] for referral (narrative)No reason for referral information availableWThe [facility] Work Phone: Reason for visit Narrative* Diagnostic Procedure Only (Urgent) - Closed Specialty Diagnoses / Procedures Referred By Contac t Referred To Contact XR IMAGING Diagnoses Foot pain, right Acute right ankle pain Procedures XR ANKLE GENERAL 3V AP/LAT/OBL RIGHT RADEX ANKLE COMPLETE MINIMUM 3 VIEWS Scooby Henson APRN.[employer] ALTERATION TAILOR [address] [place] [address] [place] [address] Referral ID Status Reason Start Date Expiration Date V isits Requested Visits Authorized [id number] Closed Auto-Generate d Referral 05/17/2023 2024 1 1 [facility] Medications Administered Section Active Administered Medications - up to 3 most recent administrations Medication Order MAR Action Action Date Dose Rate Site fluorescein-benoxinate 0.25-0.4 % 1 Drop (FLURESS) 1 Drop, BOTH EYES, DIRECTED, Starting on Tue04/09/22 at 1530, Until 04/10/22 at 0329, Administer for applanation tonometry. In the event of a Fluress shortage, administer 1 drop of Beckemeyer-Fluor into both eyes as directed for applanation [...] FoundDocuments on File Type Date Recorded Patient Interactive Project Manager Expl anation Advance Directive(s) 04/20/2021 12:16 [...] 1:05pm Chief Complaint Admit Date DRY NEEDLING/ADJUSTMENT February 27th, 2 025 11:51am DRY NEEDLING/ADJUSTMENT February 11, 2025 1:38pm [...] 2025 1:38pm Degenerative disc disease, cervical Artem 2024 1:38pm Disorder of intervertebral d isc [...] 12:54pm SCREENING May 24, 2025 2:25 pm NUMBNESS OF FEET May 29, 2025 6:38 am NUMBNESS OF FEET May 29, 2025 2:07 pm LABS May 30, 2025 7:40 am Chief Complaint Admit Date DRY NEEDLING/ADJUSTMENT February 11, 2025 1:38pm DRY NEEDLING/ADJUSTMENT March 11, 2025 1:05pm BACK PAIN April 09, 2025 1:42p m DRY NEEDLING/ADJUSTMENT May 06, 2025 12:54pm SCREENING May 24, 2025 2:25 pm NUMBNESS OF FEET May 29, 2025 6:38 am NUMBNESS OF FEET May 29, 2025 2:07 pm LABS May 30, 2025 7:40 am DRY NEEDLING/ADJUSTMENT June 03, 2025 1:18pm Reason for Visit Admit Date Segmental and [...] disc disease, cervical May 06, 2025 12:54pm Segmental and somatic dysfunction of cer vical region June 03, 2025 1:18pm Segmental and somatic dysfunction of lum bar region June 03, 2025 1:18pm Segmental and somatic dysfunction of pel jm region June 03, 2025 1:18pm Segmental and somatic dysfunction of tho racic region June 03, 2025 1:18pm Reason for Visit Admit Date Segmental and [...] disc disease, cervical May 06, 2025 12:54pm Segmental and somatic dysfunction of cer vical region June 03, 2025 1:18pm Segmental and somatic dysfunction of lum bar region June 03, 2025 1:18pm Segmental and somatic dysfunction of pel jm region June 03, 2025 1:18pm Segmental and somatic dysfunction of tho racic region June 03, 2025 1:18pm Disorder of intervertebral d isc at C5-C6 level with radiculopathy June 03, 2025 1:18pm Chief Complaint Admit Date DRY NEEDLING/ADJUSTMENT March 11, 2025 1:05pm BACK PAIN April 09, 2025 1:42p m DRY NEEDLING/ADJUSTMENT May 06, 2025 12:54pm SCREENING May 24, 2025 2:25 pm NUMBNESS OF FEET May 29, 2025 6:38 am NUMBNESS OF FEET May 29, 2025 2:07 pm LABS May 30, 2025 7:40 am DRY NEEDLING/ADJUSTMENT June 03, 2025 1:18pm GALL BLADDER June 27, 2025 8: 19am ACUPUNCUTRE/ADJUSTMENT July 01, 2025 1:48pm Reason for Visit Admit Date Segmental and [...] disc disease, cervical May 06, 2025 12:54pm Segmental and somatic dysfunction of cer vical region June 03, 2025 1:18pm Segmental and somatic dysfunction of lum bar region June 03, 2025 1:18pm Segmental and somatic dysfunction of pel jm region June 03, 2025 1:18pm Segmental and somatic dysfunction of tho racic region June 03, 2025 1:18pm Disorder of intervertebral d isc at C5-C6 level with radiculopathy June 03, 2025 1:18pm Segmental and somatic dysfunction of cer vical region July 01, 2025 1:48pm Segmental and somatic dysfunction of lum bar region July 01, 2025 1:48pm Segmental and somatic dysfunction of pel jm region July 01, 2025 1:48pm Segmental and somatic dysfunction of tho racic region July 01, 2025 1:48pm Reason for Visit Admit Date Segmental and [...] disc disease, cervical May 06, 2025 12:54pm Segmental and somatic dysfunction of cer vical region June 03, 2025 1:18pm Segmental and somatic dysfunction of lum bar region June 03, 2025 1:18pm Segmental and somatic dysfunction of pel jm region June 03, 2025 1:18pm Segmental and somatic dysfunction of tho racic region June 03, 2025 1:18pm Disorder of intervertebral d isc at C5-C6 level with radiculopathy June 03, 2025 1:18pm Segmental and somatic dysfunction of cer vical region July 01, 2025 1:48pm Segmental and somatic dysfunction of lum bar region July 01, 2025 1:48pm Segmental and somatic dysfunction of pel jm region July 01, 2025 1:48pm Segmental and somatic dysfunction of tho racic region July 01, 2025 1:48pm Degenerative disc disease (D DD) of lumbar region with axial back pain witho July 01, 2025 1:48pm Chief Complaint Admit Date BACK PAIN April 09, 2025 1:42p m DRY NEEDLING/ADJUSTMENT May 06, 2025 12:54pm SCREENING May 24, 2025 2:25 pm NUMBNESS OF FEET May 29, 2025 6:38 am NUMBNESS OF FEET May 29, 2025 2:07 pm LABS May 30, 2025 7:40 am DRY NEEDLING/ADJUSTMENT June 03, 2025 1:18pm GALL BLADDER June 27, 2025 8: 19am ACUPUNCUTRE/ADJUSTMENT July 01, 2025 1:48pm SCREENING July 09, 2025 12 :31pm Reason for Visit Admit Date Segmental and [...] disc disease, cervical May 06, 2025 12:54pm Segmental and somatic dysfunction of cer vical region June 03, 2025 1:18pm Segmental and somatic dysfunction of lum bar region June 03, 2025 1:18pm Segmental and somatic dysfunction of pel jm region June 03, 2025 1:18pm Segmental and somatic dysfunction of tho racic region June 03, 2025 1:18pm Disorder of intervertebral d isc at C5-C6 level with radiculopathy June 03, 2025 1:18pm Segmental and somatic dysfunction of cer vical region July 01, 2025 1:48pm Segmental and somatic dysfunction of lum bar region July 01, 2025 1:48pm Segmental and somatic dysfunction of pel jm region July 01, 2025 1:48pm Segmental and somatic dysfunction of tho racic region July 01, 2025 1:48pm Degenerative disc disease (D DD) of lumbar region with axial back pain witho July 01, 2025 1:48pm Chief Complaint Admit Date BACK PAIN April 09, 2025 1:42p m DRY NEEDLING/ADJUSTMENT May 06, 2025 12:54pm SCREENING May 24, 2025 2:25 pm NUMBNESS OF FEET May 29, 2025 6:38 am NUMBNESS OF FEET May 29, 2025 2:07 pm LABS May 30, 2025 7:40 am DRY NEEDLING/ADJUSTMENT June 03, 2025 1:18pm GALL BLADDER June 27, 2025 8: 19am ACUPUNCUTRE/ADJUSTMENT July 01, 2025 1:48pm SCREENING July 09, 2025 12 :31pm ABD PAIN July 26, 2025 8:47am ACUPUNCTURE/ADJUSTMENT July 29, 2 025 2:52pm Reason for Visit Admit Date Segmental and [...] disc disease, cervical May 06, 2025 12:54pm Segmental and somatic dysfunction of cer vical region June 03, 2025 1:18pm Segmental and somatic dysfunction of lum bar region June 03, 2025 1:18pm Segmental and somatic dysfunction of pel jm region June 03, 2025 1:18pm Segmental and somatic dysfunction of tho racic region June 03, 2025 1:18pm Disorder of intervertebral d isc at C5-C6 level with radiculopathy June 03, 2025 1:18pm Segmental and somatic dysfunction of cer vical region July 01, 2025 1:48pm Segmental and somatic dysfunction of lum bar region July 01, 2025 1:48pm Segmental and somatic dysfunction of pel jm region July 01, 2025 1:48pm Segmental and somatic dysfunction of tho racic region July 01, 2025 1:48pm Degenerative disc disease (D DD) of lumbar region with axial back pain witho July 01, 2025 1:48pm Segmental and somatic dysfunction of cer vical region July 29, 2025 2:52pm Segmental and somatic dysfunction of lum bar region July 29, 2025 2:52pm Segmental and somatic dysfunction of pel jm region July 29, 2025 2:52pm Segmental and somatic dysfunction of tho racic region July 29, 2025 2:52pm Degenerative disc disease (D DD) of lumbar region with axial back pain witho July 29, 2025 2:52pm Degenerative disc disease, cervical Sept ember 2024 2:52pm Disorder of intervertebral d isc at C5-C6 level with radiculopathy July 29, 2025 2:52pm Reason for Referral Specialty Diagnoses / Procedures Referred By Lukasz croft Referred To Contact Podiatry Diagnoses Acute right ankle pain Procedures CONSULT TO PODIATRY OFFICE/OUTPATIENT [facility] 60-74 MINUTES AthAsher burkett PA-C [address] [place] [address] Referral ID Status Reason Start Date Expiration Date Visits Requested Visits Authorized [id number] Authorized PCP Requested Referral 05/18/2023 05/17/2024 1 1 Summary Purpose Family History No Family History Records Found Relationship Condition Age at Onset Recorded Date/T alexandro grandfather Arthritis Unknown grandmother Arthritis Unknown aunt Malignant neoplasm of breast Unknown Diabetes mellitus Unknown father Malignant neoplasm Unknown mother Malignant neoplasm Unknown uncle Diabetes mellitus Unknown brother Cardiac disease Unknown Family Member Condition Full Brother High blood pressure Full Brother Heart disease Father Cancer Father Mother High blood pressure Mother Hypothyroidism Mother Cancer Mother Alive Additional Source Comments Source Comments (unrecognize d section and content) In the event this informatio n is protected by the Federal Confidentiality of Alcohol and Drug Abuse Patient Records regulations: The Federal rules restrict any use of the information to criminally investigate or prosecute any alcohol or drug abuse patient.[facility] the event this information is protected by the Federal Confidentiality of Alcohol and Drug Abuse Patient Records regulations: The Federal rules restrict any use of the information to criminally investigate or prosecute any alcohol or drug abuse patient.[facility] the event this information is protected by the Federal Confidentiality of Alcohol and Drug Abuse Patient Records regulations: The Federal rules restrict any use of the information to criminally investigate or prosecute any alcohol or drug abuse patient.[facility] the event this information is protected by the Federal Confidentiality of Alcohol and Drug Abuse Patient Records regulations: The Federal rules restrict any use of the information to criminally investigate or prosecute any alcohol or drug abuse patient.[facility] the event this information is protected by the Federal Confidentiality of Alcohol and Drug Abuse Patient Records regulations: The Federal rules restrict any use of the information to criminally investigate or prosecute any alcohol or drug abuse patient.[facility] Reason for Visit (unrecogniz ed section and content) Reason Comments Cystoid Macular Edema Follow Up Specialty Diagnoses / Procedures Referred By Lukasz croft Referred To Contact OPHTHALMOLOGY Diagnoses Return in 2-3 months Procedures Est adult Marium Elam V, MD [address] [place] [address] [address] [address] Referral ID Status Reason Start Date Expiration Date Visits Requested Visits Authorized [id number] Authorized Financial Clearance Required - OON Payor Patient Cleared INN/SMCP Payor Auth Obtained 1 09/23/2022 4 4 Reason Comments right foot pain Right foot pain x 1 week-cannot recall an injury Reason Comments Results Care Teams (unrecognized sec tion and content) 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 Paolo Lantigua MD Family Provider Active Dr. Yonatan Courtney MD Primary Care Provider Active Team Status: Inactive Member Role Status Dates Dr. Yonatan Courtney MD Primary Care Provider, Referring Provider Active Dr. Valentina Flores DC Attending Provider Active Team Status: Active Member Role Status Dates Dr. Yonatan Courtney MD Primary Care Provider Active Dr. Rajendra Lindsey MD Attending Provider, Referring Provider Active Team Status: Active Member Role Status Dates Dr. Yonatan Courtney MD Primary Care Provider Active GERALD IGLESIAS Attending Provider, Referring Provider Ac tive Team Status: Inactive Member Role Status Dates Dr. Yonatan Courtney MD Primary Care Provi brissa, Attending Provider, Referring Provider Active Team Status: Inactive Member Role Status Dates Dr. Yonatan Courtney MD Primary Care Provider Active GERALD IGLESIAS Attending Provider, Referring Provider Ac tive Team Status: Inactive Member Role Status Dates Dr. Yonatan Courtney MD Primary Care Provider Active Dr. 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 Yonatan Courtney MD Primary Care Provider Active Dr. Valentina Flores DC Attending Provider, Referring Pro vider Active Team Status: Inactive Member Role Status Dates Dr. Yonatan Courtney MD Primary Care Provider Active Dr. Montana Carlisle MD Attending Provider Active Team Status: Inactive Member Role Status Dates Dr. Yonatan Courtney MD Primary Care Provider, Referring Provider Active Dr. Melissa Solo MD Attending Provider Active Team Status: Inactive Member Role Status Dates Dr. 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 Yonatan Courtney MD Primary Care Provider Active Team Status: Inactive Member Role Status Dates Dr. Yonatan Courtney MD Primary Care Provider Active Start: December 17, 2024 End: December 17, 2024 Dr. Yonatan Courtney MD Attending Provider Active Start: December 17, 2024 End: December 17, 2024 Dr. Yonatan Courtney MD Referring Provider Active Start: December 17, 2024 End: December 17, 2024 Team Status: Inactive Member Role Status Dates Dr. Yonatan Courtney MD Primary Care Provider Active Start: January 10, 2025 End: January 10, 2025 Dr. Valentina Flores DC Attending Provider Active S tart: January 10, 2025 End: January 10, 2025 Dr. Valentina Flores DC Referring Provider Active S tart: January 10, 2025 End: January 10, 2025 Team Status: Inactive Member Role Status Dates Dr. Yonatan Courtney MD Primary Care Provider Active Start: February 11, 2025 End: February 11, 2025 Dr. Valentina Flores DC Attending Provider Active S tart: February 11, 2025 End: February 11, 2025 Dr. Valentina Flores DC Referring Provider Active S tart: February 11, 2025 End: February 11, 2025 Team Status: Inactive Member Role Status Dates Dr. Yonatan Courtney MD Primary Care Provider Active Start: March 11, 2025 End: March 11, 2025 Dr. Yonatan Courtney MD Referring Provider Active Start: March 11, 2025 End: March 11, 2025 Dr. Valentina Flores DC Attending Provider Active S tart: March 11, 2025 End: March 11, 2025 Team Status: Inactive Member Role Status Dates Dr. Yonatan Courtney MD Primary Care Provider Active Start: March 22, 2025 End: March 22, 2025 Dr. Yonatan Courtney MD Attending Provider Active Start: March 22, 2025 End: March 22, 2025 Dr. Yonatan Courtney MD Referring Provider Active Start: March 22, 2025 End: March 22, 2025 Team Status: Inactive Member Role Status Dates Dr. Yonatan Courtney MD Primary Care Provider Active Start: March 29, 2025 End: March 29, 2025 Dr. Yonatan Courtney MD Attending Provider Active Start: March 29, 2025 End: March 29, 2025 Dr. Yonatan Courtney MD Referring Provider Active Start: March 29, 2025 End: March 29, 2025 Team Status: Inactive Member Role Status Dates Dr. Yonatan Courtney MD Primary Care Provider Active Start: April 09, 2025 End: April 09, 2025 Dr. Yonatan Courtney MD Referring Provider Active Start: April 09, 2025 End: April 09, 2025 Dr. Valentina Flores DC Attending Provider Active S tart: April 09, 2025 End: April 09, 2025 Team Status: Inactive Member Role Status Dates Dr. Yonatan Courtney MD Primary Care Provider Active Start: May 06, 2025 End: May 06, 2025 Dr. Yonatan Courtney MD Referring Provider Active Start: May 06, 2025 End: May 06, 2025 Dr. Valentina Flores DC Attending Provider Active S tart: May 06, 2025 End: May 06, 2025 Team Status: Active Member Role/Relationship Status Dates Dr. Yonatan Courtney MD Primary Care Provider Active Team Status: Inactive Member Role/Relationship Status Dates Dr. Yonatan Courtney MD Primary Care Provider Active Start: February 11, 2025 End: February 11, 2025 Dr. Valentina Flores DC Attending Provider Active S tart: February 11, 2025 End: February 11, 2025 Dr. Valentina Flores DC Referring Provider Active S tart: February 11, 2025 End: February 11, 2025 Team Status: Inactive Member Role/Relationship Status Dates Dr. Yonatan Courtney MD Primary Care Provider Active Start: March 11, 2025 End: March 11, 2025 Dr. Yonatan Courtney MD Referring Provider Active Start: March 11, 2025 End: March 11, 2025 Dr. Valentina Flores DC Attending Provider Active S tart: March 11, 2025 End: March 11, 2025 Team Status: Inactive Member Role/Relationship Status Dates Dr. Yonatan Courtney MD Primary Care Provider Active Start: March 22, 2025 End: March 22, 2025 Dr. Yonatan Courtney MD Attending Provider Active Start: March 22, 2025 End: March 22, 2025 Dr. Yonatan Courtney MD Referring Provider Active Start: March 22, 2025 End: March 22, 2025 Team Status: Inactive Member Role/Relationship Status Dates Dr. Yonatan Courtney MD Primary Care Provider Active Start: March 29, 2025 End: March 29, 2025 Dr. Yonatan Courtney MD Attending Provider Active Start: March 29, 2025 End: March 29, 2025 Dr. Yonatan Courtney MD Referring Provider Active Start: March 29, 2025 End: March 29, 2025 Team Status: Inactive Member Role/Relationship Status Dates Dr. Yonatan Courtney MD Primary Care Provider Active Start: April 09, 2025 End: April 09, 2025 Dr. Yonatan Courtney MD Referring Provider Active Start: April 09, 2025 End: April 09, 2025 Dr. Valentina Flores DC Attending Provider Active S tart: April 09, 2025 End: April 09, 2025 Team Status: Inactive Member Role/Relationship Status Dates Dr. Yonatan Courtney MD Primary Care Provider Active Start: May 06, 2025 End: May 06, 2025 Dr. Yonatan Courtney MD Referring Provider Active Start: May 06, 2025 End: May 06, 2025 Dr. Valentina Flores DC Attending Provider Active S tart: May 06, 2025 End: May 06, 2025 Team Status: Inactive Member Role/Relationship Status Dates Dr. Yonatan Courtney MD Primary Care Provider Active Start: May 20, 2025 End: May 20, 2025 Dr. Jaciel Gavin DO Attending Provider Active Start: May 20, 2025 End: May 20, 2025 Dr. Jaciel Gavin DO Referring Provider Active Start: May 20, 2025 End: May 20, 2025 Team Status: Active Member Role/Relationship Status Dates Dr. Yonatan Courtney MD Primary Care Provider Active Start: May 22, 2025 Dr. Jaciel Gavin DO Attending Provider Active Start: May 22, 2025 Dr. Jaciel Gavin DO Referring Provider Active Start: May 22, 2025 Team Status: Active Member Role/Relationship Status Dates Dr. Yonatan Courtney MD Primary Care Provider Active Start: May 24, 2025 Dr. Yonatan Courtney MD Attending Provider Active Start: May 24, 2025 Dr. Yonatan Courtney MD Referring Provider Active Start: May 24, 2025 Team Status: Inactive Member Role/Relationship Status Dates Dr. Yoantan Courtney MD Primary Care Provider Active Start: May 22, 2025 End: May 22, 2025 Dr. Jaciel Gavin DO Attending Provider Active Start: May 22, 2025 End: May 22, 2025 Dr. Jaciel Gavin DO Referring Provider Active Start: May 22, 2025 End: May 22, 2025 Team Status: Inactive Member Role/Relationship Status Dates Dr. Yonatan Courtney MD Primary Care Provider Active Start: May 24, 2025 End: May 24, 2025 Dr. Yonatan Courtney MD Attending Provider Active Start: May 24, 2025 End: May 24, 2025 Dr. Yonatan Courtney MD Referring Provider Active Start: May 24, 2025 End: May 24, 2025 Team Status: Active Member Role/Relationship Status Dates Dr. Yonatan Courtney MD Primary Care Provider Active Start: May 29, 2025 Dr. Yonatan Courtney MD Attending Provider Active Start: May 29, 2025 Dr. Yonatan Courtney MD Referring Provider Active Start: May 29, 2025 Team Status: Active Member Role/Relationship Status Dates Dr. Yonatan Courtney MD Primary Care Provider Active Start: May 29, 2025 Dr. Yonatan Courtney MD Referring Provider Active Start: May 29, 2025 Dr. Yonatan Corutney MD Other Provider Active Star t: May 29, 2025 Dr. Arelis Frausto MD Attending Provider Active S tart: May 29, 2025 Team Status: Active Member Role/Relationship Status Dates Dr. Yonatan Courtney MD Primary Care Provider Active Start: May 30, 2025 Dr. Jaciel Gavin DO Attending Provider Active Start: May 30, 2025 Dr. Jaciel Gavin DO Referring Provider Active Start: May 30, 2025 Team Status: Inactive Member Role/Relationship Status Dates Dr. Yonatan Courtney MD Primary Care Provider Active Start: June 03, 2025 End: June 03, 2025 Dr. Yonatan Courtney MD Referring Provider Active Start: June 03, 2025 End: June 03, 2025 Dr. Valentina Flores DC Attending Provider Active S tart: June 03, 2025 End: June 03, 2025 Team Status: Inactive Member Role/Relationship Status Dates Dr. Yonatan Courtney MD Primary Care Provider Active Start: May 29, 2025 End: May 29, 2025 Dr. Yonatan Courtney MD Attending Provider Active Start: May 29, 2025 End: May 29, 2025 Dr. Yonatan Courtney MD Referring Provider Active Start: May 29, 2025 End: May 29, 2025 Team Status: Inactive Member Role/Relationship Status Dates Dr. Yonatan Courtney MD Primary Care Provider Active Start: May 30, 2025 End: May 30, 2025 Dr. Jaciel Gavin DO Attending Provider Active Start: May 30, 2025 End: May 30, 2025 Dr. Jaciel Gavin DO Referring Provider Active Start: May 30, 2025 End: May 30, 2025 Team Status: Inactive Member Role/Relationship Status Dates Dr. Yonatan Courtney MD Primary Care Provider Active Start: March 11, 2025 End: March 11, 2025 Dr. Yonatan Courtney MD Referring Provider Active Start: March 11, 2025 End: March 11, 2025 Dr. Valentina Flores DC Attending Provider Active S tart: March 11, 2025 End: March 11, 2025 Team Status: Inactive Member Role/Relationship Status Dates Dr. Yonatan Courtney MD Primary Care Provider Active Start: March 22, 2025 End: March 22, 2025 Dr. Yonatan Courtney MD Attending Provider Active Start: March 22, 2025 End: March 22, 2025 Dr. Yonatan Courtney MD Referring Provider Active Start: March 22, 2025 End: March 22, 2025 Team Status: Inactive Member Role/Relationship Status Dates Dr. Yonatan Courtney MD Primary Care Provider Active Start: March 29, 2025 End: March 29, 2025 Dr. Yonatan Courtney MD Attending Provider Active Start: March 29, 2025 End: March 29, 2025 Dr. Yonatan Courtney MD Referring Provider Active Start: March 29, 2025 End: March 29, 2025 Team Status: Inactive Member Role/Relationship Status Dates Dr. Yonatan Courtney MD Primary Care Provider Active Start: April 09, 2025 End: April 09, 2025 Dr. Yonatan Courtney MD Referring Provider Active Start: April 09, 2025 End: April 09, 2025 Dr. Valentina Flores DC Attending Provider Active S tart: April 09, 2025 End: April 09, 2025 Team Status: Inactive Member Role/Relationship Status Dates Dr. Yonatan Courtney MD Primary Care Provider Active Start: May 06, 2025 End: May 06, 2025 Dr. Valentina Flores DC Attending Provider Active S tart: May 06, 2025 End: May 06, 2025 Dr. Valentina Flores DC Referring Provider Active S tart: May 06, 2025 End: May 06, 2025 Team Status: Inactive Member Role/Relationship Status Dates Dr. Yonatan Courtney MD Primary Care Provider Active Start: May 20, 2025 End: May 20, 2025 Dr. Jaciel Gavin DO Attending Provider Active Start: May 20, 2025 End: May 20, 2025 Dr. Jaciel Gavin DO Referring Provider Active Start: May 20, 2025 End: May 20, 2025 Team Status: Inactive Member Role/Relationship Status Dates Dr. Yonatan Courtney MD Primary Care Provider Active Start: May 22, 2025 End: May 22, 2025 Dr. Jaicel Gavin DO Attending Provider Active Start: May 22, 2025 End: May 22, 2025 Dr. Jaciel Gavin DO Referring Provider Active Start: May 22, 2025 End: May 22, 2025 Team Status: Inactive Member Role/Relationship Status Dates Dr. Yonatan Courtney MD Primary Care Provider Active Start: May 24, 2025 End: May 24, 2025 Dr. Yonatan Courtney MD Attending Provider Active Start: May 24, 2025 End: May 24, 2025 Dr. Yonatan Courtney MD Referring Provider Active Start: May 24, 2025 End: May 24, 2025 Team Status: Inactive Member Role/Relationship Status Dates Dr. Yonatan Courtney MD Primary Care Provider Active Start: May 29, 2025 End: May 29, 2025 Dr. Yonatan Courtney MD Attending Provider Active Start: May 29, 2025 End: May 29, 2025 Dr. Yonatan Courtney MD Referring Provider Active Start: May 29, 2025 End: May 29, 2025 Team Status: Active Member Role/Relationship Status Dates Dr. Yonatan Courtney MD Primary Care Provider Active Start: May 29, 2025 Dr. Yonatan Courtney MD Referring Provider Active Start: May 29, 2025 Dr. Yonatan Courtney MD Other Provider Active Star t: May 29, 2025 Dr. Arelis Frausto MD Attending Provider Active S tart: May 29, 2025 Team Status: Inactive Member Role/Relationship Status Dates Dr. Yonatan Courtney MD Primary Care Provider Active Start: May 30, 2025 End: May 30, 2025 Dr. Jaciel Gavin DO Attending Provider Active Start: May 30, 2025 End: May 30, 2025 Dr. Jaciel Gavin DO Referring Provider Active Start: May 30, 2025 End: May 30, 2025 Team Status: Inactive Member Role/Relationship Status Dates Dr. Yonatan Courtney MD Primary Care Provider Active Start: June 03, 2025 End: June 03, 2025 Dr. Yonatan Courtney MD Referring Provider Active Start: June 03, 2025 End: June 03, 2025 Dr. Valentina Flores DC Attending Provider Active S tart: June 03, 2025 End: June 03, 2025 Team Status: Active Member Role/Relationship Status Dates Dr. Yonatan Courtney MD Primary Care Provider Active Start: June 27, 2025 Dr. Yonatan Courtney MD Attending Provider Active Start: June 27, 2025 Dr. Yonatan Courtney MD Referring Provider Active Start: June 27, 2025 Team Status: Active Member Role/Relationship Status Dates Dr. Yonatan Courtney MD Primary Care Provider Active Start: June 28, 2025 Dr. Yonatan Courtney MD Attending Provider Active Start: June 28, 2025 Team Status: Inactive Member Role/Relationship Status Dates Dr. Yonatan Courtney MD Primary Care Provider Active Start: July 01, 2025 End: July 01, 2025 Dr. Yonatan Courtney MD Referring Provider Active Start: July 01, 2025 End: July 01, 2025 Dr. Valentina Flores DC Attending Provider Active S tart: July 01, 2025 End: July 01, 2025 Team Status: Inactive Member Role/Relationship Status Dates Dr. Yonatan Courtney MD Primary Care Provider Active Start: June 27, 2025 End: June 27, 2025 Dr. Yonatan Courtney MD Attending Provider Active Start: June 27, 2025 End: June 27, 2025 Dr. Yonatan Courtney MD Referring Provider Active Start: June 27, 2025 End: June 27, 2025 Team Status: Inactive Member Role/Relationship Status Dates Dr. Yonatan Courtney MD Primary Care Provider Active Start: June 28, 2025 End: June 28, 2025 Dr. Yonatan Courtney MD Attending Provider Active Start: June 28, 2025 End: June 28, 2025 Team Status: Inactive Member Role/Relationship Status Dates Dr. Yonatan Courtney MD Primary Care Provider Active Start: March 22, 2025 End: March 22, 2025 Dr. Yonatan Courtney MD Attending Provider Active Start: March 22, 2025 End: March 22, 2025 Dr. Yonatan Courtney MD Referring Provider Active Start: March 22, 2025 End: March 22, 2025 Team Status: Inactive Member Role/Relationship Status Dates Dr. Yonatan Courtney MD Primary Care Provider Active Start: March 29, 2025 End: March 29, 2025 Dr. Yonatan Courtney MD Attending Provider Active Start: March 29, 2025 End: March 29, 2025 Dr. Yonatan Courtney MD Referring Provider Active Start: March 29, 2025 End: March 29, 2025 Team Status: Inactive Member Role/Relationship Status Dates Dr. Yonatan Courtney MD Primary Care Provider Active Start: April 09, 2025 End: April 09, 2025 Dr. Yonatan Courtney MD Referring Provider Active Start: April 09, 2025 End: April 09, 2025 Dr. Valentina Flores DC Attending Provider Active S tart: April 09, 2025 End: April 09, 2025 Team Status: Inactive Member Role/Relationship Status Dates Dr. Yonatan Courtney MD Primary Care Provider Active Start: May 06, 2025 End: May 06, 2025 Dr. Valentina Flores DC Attending Provider Active S tart: May 06, 2025 End: May 06, 2025 Dr. Valentina Flores DC Referring Provider Active S tart: May 06, 2025 End: May 06, 2025 Team Status: Inactive Member Role/Relationship Status Dates Dr. Yonatan Courtney MD Primary Care Provider Active Start: May 20, 2025 End: May 20, 2025 Dr. Jaciel Gavin DO Attending Provider Active Start: May 20, 2025 End: May 20, 2025 Dr. Jaciel Gavin DO Referring Provider Active Start: May 20, 2025 End: May 20, 2025 Team Status: Inactive Member Role/Relationship Status Dates Dr. Yonatan Courtney MD Primary Care Provider Active Start: May 22, 2025 End: May 22, 2025 Dr. Jaciel Gavin DO Attending Provider Active Start: May 22, 2025 End: May 22, 2025 Dr. Jaciel Gavin DO Referring Provider Active Start: May 22, 2025 End: May 22, 2025 Team Status: Inactive Member Role/Relationship Status Dates Dr. Yonatan Courtney MD Primary Care Provider Active Start: May 24, 2025 End: May 24, 2025 Dr. Yonatan Courtney MD Attending Provider Active Start: May 24, 2025 End: May 24, 2025 Dr. Yonatan Courtney MD Referring Provider Active Start: May 24, 2025 End: May 24, 2025 Team Status: Inactive Member Role/Relationship Status Dates Dr. Yonatan Courtney MD Primary Care Provider Active Start: May 29, 2025 End: May 29, 2025 Dr. Yonatan Courtney MD Attending Provider Active Start: May 29, 2025 End: May 29, 2025 Dr. Yonatan Courtney MD Referring Provider Active Start: May 29, 2025 End: May 29, 2025 Team Status: Active Member Role/Relationship Status Dates Dr. Yonatan Courtney MD Primary Care Provider Active Start: May 29, 2025 Dr. Yonatan Courtney MD Referring Provider Active Start: May 29, 2025 Dr. Yonatan Courtney MD Other Provider Active Star t: May 29, 2025 Dr. Arelis Frausto MD Attending Provider Active S tart: May 29, 2025 Team Status: Inactive Member Role/Relationship Status Dates Dr. Yonatan Courtney MD Primary Care Provider Active Start: May 30, 2025 End: May 30, 2025 Dr. Jaciel Gavin DO Attending Provider Active Start: May 30, 2025 End: May 30, 2025 Dr. Jaciel Gavin DO Referring Provider Active Start: May 30, 2025 End: May 30, 2025 Team Status: Inactive Member Role/Relationship Status Dates Dr. Yonatan Courtney MD Primary Care Provider Active Start: June 03, 2025 End: June 03, 2025 Dr. Valentina Flores DC Attending Provider Active S tart: June 03, 2025 End: June 03, 2025 Dr. Valentina Flores DC Referring Provider Active S tart: June 03, 2025 End: June 03, 2025 Team Status: Inactive Member Role/Relationship Status Dates Dr. Yonatan Courtney MD Primary Care Provider Active Start: June 27, 2025 End: June 27, 2025 Dr. Yonatan Courtney MD Attending Provider Active Start: June 27, 2025 End: June 27, 2025 Dr. Yonatan Courtney MD Referring Provider Active Start: June 27, 2025 End: June 27, 2025 Team Status: Inactive Member Role/Relationship Status Dates Dr. Yonatan Courtney MD Primary Care Provider Active Start: June 28, 2025 End: June 28, 2025 Dr. Yonatan Courtney MD Attending Provider Active Start: June 28, 2025 End: June 28, 2025 Team Status: Inactive Member Role/Relationship Status Dates Dr. Yonatan Courtney MD Primary Care Provider Active Start: July 01, 2025 End: July 01, 2025 Dr. Yonatan Courtney MD Referring Provider Active Start: July 01, 2025 End: July 01, 2025 Dr. Valentina Flores DC Attending Provider Active S tart: July 01, 2025 End: July 01, 2025 Team Status: Inactive Member Role/Relationship Status Dates Dr. Yonatan Courtney MD Primary Care Provider Active Start: July 09, 2025 End: July 09, 2025 Dr. Yonatan Courtney MD Attending Provider Active Start: July 09, 2025 End: July 09, 2025 Dr. Yonatan Courtney MD Referring Provider Active Start: July 09, 2025 End: July 09, 2025 Team Status: Inactive Member Role/Relationship Status Dates Dr. Yonatan Courtney MD Primary Care Provider Active Start: April 09, 2025 End: April 09, 2025 Dr. Yonatan Courtney MD Referring Provider Active Start: April 09, 2025 End: April 09, 2025 Dr. Valentina Flores DC Attending Provider Active S tart: April 09, 2025 End: April 09, 2025 Team Status: Inactive Member Role/Relationship Status Dates Dr. Yonatan Courtney MD Primary Care Provider Active Start: May 06, 2025 End: May 06, 2025 Dr. Valentina Flores DC Attending Provider Active S tart: May 06, 2025 End: May 06, 2025 Dr. Valentina Flores DC Referring Provider Active S tart: May 06, 2025 End: May 06, 2025 Team Status: Inactive Member Role/Relationship Status Dates Dr. Yonatan Courtney MD Primary Care Provider Active Start: May 20, 2025 End: May 20, 2025 Dr. Jaciel Gavin DO Attending Provider Active Start: May 20, 2025 End: May 20, 2025 Dr. Jaciel Gavin DO Referring Provider Active Start: May 20, 2025 End: May 20, 2025 Team Status: Inactive Member Role/Relationship Status Dates Dr. Yonatan Courtney MD Primary Care Provider Active Start: May 22, 2025 End: May 22, 2025 Dr. Jaciel Gvain DO Attending Provider Active Start: May 22, 2025 End: May 22, 2025 Dr. Jaciel Gavin DO Referring Provider Active Start: May 22, 2025 End: May 22, 2025 Team Status: Inactive Member Role/Relationship Status Dates Dr. Yonatan Courtney MD Primary Care Provider Active Start: May 24, 2025 End: May 24, 2025 Dr. Yonatan Courtney MD Attending Provider Active Start: May 24, 2025 End: May 24, 2025 Dr. Yonatan Courtney MD Referring Provider Active Start: May 24, 2025 End: May 24, 2025 Team Status: Inactive Member Role/Relationship Status Dates Dr. Yonatan Courtney MD Primary Care Provider Active Start: May 29, 2025 End: May 29, 2025 Dr. Yonatan Courtney MD Attending Provider Active Start: May 29, 2025 End: May 29, 2025 Dr. Yonatan Courtney MD Referring Provider Active Start: May 29, 2025 End: May 29, 2025 Team Status: Active Member Role/Relationship Status Dates Dr. Yonatan Courtney MD Primary Care Provider Active Start: May 29, 2025 Dr. Yonatan Courtney MD Referring Provider Active Start: May 29, 2025 Dr. Yonatan Courtney MD Other Provider Active Star t: May 29, 2025 Dr. Arelis Frausto MD Attending Provider Active S tart: May 29, 2025 Team Status: Inactive Member Role/Relationship Status Dates Dr. Yonatan Courtney MD Primary Care Provider Active Start: May 30, 2025 End: May 30, 2025 Dr. Jaciel Gavin DO Attending Provider Active Start: May 30, 2025 End: May 30, 2025 Dr. Jaciel Gavin DO Referring Provider Active Start: May 30, 2025 End: May 30, 2025 Team Status: Inactive Member Role/Relationship Status Dates Dr. Yonatan Courtney MD Primary Care Provider Active Start: June 03, 2025 End: June 03, 2025 Dr. Valentina Flores DC Attending Provider Active S tart: June 03, 2025 End: June 03, 2025 Dr. Valentina Flores DC Referring Provider Active S tart: June 03, 2025 End: June 03, 2025 Team Status: Inactive Member Role/Relationship Status Dates Dr. Yonatan Courtney MD Primary Care Provider Active Start: June 27, 2025 End: June 27, 2025 Dr. Yonatan Courtney MD Attending Provider Active Start: June 27, 2025 End: June 27, 2025 Dr. Yonatan Courtney MD Referring Provider Active Start: June 27, 2025 End: June 27, 2025 Team Status: Inactive Member Role/Relationship Status Dates Dr. Yonatan Courtney MD Primary Care Provider Active Start: June 28, 2025 End: June 28, 2025 Dr. Yonatan Courtney MD Attending Provider Active Start: June 28, 2025 End: June 28, 2025 Team Status: Inactive Member Role/Relationship Status Dates Dr. Yonatan Courtney MD Primary Care Provider Active Start: July 01, 2025 End: July 01, 2025 Dr. Yonatan Courtney MD Referring Provider Active Start: July 01, 2025 End: July 01, 2025 Dr. Valentina Flores DC Attending Provider Active S tart: July 01, 2025 End: July 01, 2025 Team Status: Inactive Member Role/Relationship Status Dates Dr. Yonatan Courtney MD Primary Care Provider Active Start: July 09, 2025 End: July 09, 2025 Dr. Yonatan Courtney MD Attending Provider Active Start: July 09, 2025 End: July 09, 2025 Dr. Yonatan Courtney MD Referring Provider Active Start: July 09, 2025 End: July 09, 2025 Team Status: Active Member Role/Relationship Status Dates Dr. Yonatan Courtney MD Primary Care Provider Active Start: July 26, 2025 Dr. Yonatan Courtney MD Attending Provider Active Start: July 26, 2025 Dr. Yonatan Courtney MD Referring Provider Active Start: July 26, 2025 Team Status: Inactive Member Role/Relationship Status Dates Dr. Yonatan Courtney MD Primary Care Provider Active Start: July 29, 2025 End: July 29, 2025 Dr. Yonatan Courtney MD Referring Provider Active Start: July 29, 2025 End: July 29, 2025 Dr. Valentina Flores DC Attending Provider Active S tart: July 29, 2025 End: July 29, 2025 INFORMATION SOURCE (unrecogn ized section and content) DATE CREATED AUTHOR 05/20/2023 [facility] DATE CREATED AUTHOR AUTHOR'S ORGANIZ ATION 05/11/2025 [facility] DATE CREATED AUTHOR AUTHOR'S ORGANIZ ATION 08/03/2025 [facility] FOR RECORDS PERTAINING TO PATIENTS WHO [...] BE BASED ON THE PRIMARY CLINICAL RECORDS. [employer] provides no warranty or guarantee of the accuracy or completeness of information in this document.
--- NOTE | 2025-08-09 20:08 | US_ITS ---
PROCEDURE: VENOUS DUPLEX IMAG/LIMITED/UNI 08/09/2025 REASON FOR EXAM: F 70 y/o TECHNIQUE: Procedure Code: USVDUL Modality: US Procedure: VENOUS DUPLEX IMAG/LIMITED/UNI COMPARISON: None available FINDINGS: There is no intraluminal echogenicity to suggest the presence of a deep venous thrombosis. Appropriate respiratory variation, augmentation and venous compression is noted. 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
--- NOTE | 2025-08-09 20:57 | EDS_ITS ---
HPI History of Present Illness Chief Complaint: Lower Extremity Injury Narrative Narrative: Patient is a 70 year old female presenting to the ED for left calf pain. Patient states that she is been having calf pain for the past 2 to 3 days. She does endorse a history of DVT after a procedure. States this is about 7 years ago. She is not on any oral anticoagulation. She states that today she was shopping and she felt a pop in her left calf. She states that the pain worsened after this. She denies any other injuries. She did not fall. 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 Home Medications ?Medication ?Instructions ?Recorded ?Last Taken ?Type antiarthritic combination no.2 900 900 mg PO DAILY art hritis 06/17/22 09/02/24 History mg tablet (glucosamine-chondroitin) cinnamon bark 500 mg capsule 500 mg PO DAILY 06/17/22 Unknown History (Cinnamon) coenzyme Q10 100 mg capsule 100 mg PO DAILY 06/17/22 U nknown History (CoQ-10) magnesium 30 mg tablet 30 mg PO DAILY 06/17/22 Unkn own History multivitamin 1 tab PO DAILY 06/17/2208/15 History omega 5-cko-pbt-fish oil 300 1 cap PO DAILY 06/17/22 1 History mg-1,000 mg capsule (Fish Oil) Hydrocortisone 2.5%/lidocaine 5% #30 ea 07/11/23 Unkno wn Rx suppository (cmpd) atorvastatin 10 mg tablet 10 mg PO DAILY 07/11/2308/15 History cholecalciferol (vitamin D3) 75 50 mcg PO DAILY 09/02/24 History mcg (3,000 unit) tablet levothyroxine 25 mcg capsule 137 mcg PO DAILY 07/11/23 Unknown History loratadine 10 mg tablet (Claritin) 10 mg PO DAILY 06/1509/03/24 History trazodone 50 mg tablet 50 mg PO QHS PRN insomnia 09/02/24 History escitalopram oxalate 20 mg tablet 20 mg PO DAILY 08/3009/02/24 History Allergy/AdvReac Type Severity Reaction Status Date / Time Penicillins Allergy Mild itching Verified 08/09/25 12:40 Seasonal Allergies: Uncoded Allergy Other Verified 08/09/25 12:40 Family History Grandfather Arthritis Grandmother Arthritis Aunt Breast cancer Diabetes Father Cancer Rectal Mother Cancer Thyroid Uncle Diabetes Brother Heart disease
--- NOTE | 2025-08-09 20:57 | ED.VIS.LOWEX ---
HPI History of Present Illness Chief Complaint: Lower Extremity Injury Narrative Narrative: Patient is a 70 year old female presenting to the ED for left calf pain. Patient states that she is been having calf pain for the past 2 to 3 days. She does endorse a history of DVT after a procedure. States this is about 7 years ago. She is not on any oral anticoagulation. She states that today she was shopping and she felt a pop in her left calf. She states that the pain worsened after this. She denies any other injuries. She did not fall. 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 Home Medications ?Medication ?Instructions ?Recorded ?Last Taken ?Type antiarthritic combination no.2 900 900 mg PO DAILY arthritis 06/17/22 09/02/24 History mg tablet (glucosamine-chondroitin) cinnamon bark 500 mg capsule 500 mg PO DAILY 06/17/22 Unknown History (Cinnamon) coenzyme Q10 100 mg capsule 100 mg PO DAILY 06/17/22 Unknown History (CoQ-10) magnesium 30 mg tablet 30 mg PO DAILY 06/17/22 Unknown History multivitamin 1 tab PO DAILY 06/17/22 09/02/24 History omega 5-pue-azj-fish oil 300 1 cap PO DAILY 06/17/22 09/02/24 History mg-1,000 mg capsule (Fish Oil) Hydrocortisone 2.5%/lidocaine 5% #30 ea 07/11/23 Unknown Rx suppository (cmpd) atorvastatin 10 mg tablet 10 mg PO DAILY 07/11/23 09/03/24 History cholecalciferol (vitamin D3) 75 50 mcg PO DAILY 07/11/23 09/02/24 History mcg (3,000 unit) tablet levothyroxine 25 mcg capsule 137 mcg PO DAILY 07/11/23 Unknown History loratadine 10 mg tablet (Claritin) 10 mg PO DAILY 07/11/23 09/03/24 History trazodone 50 mg tablet 50 mg PO QHS PRN insomnia 07/11/23 09/02/24 History escitalopram oxalate 20 mg tablet 20 mg PO DAILY 08/30/23 09/02/24 History Allergy/AdvReac Type Severity Reaction Status Date / Time Penicillins Allergy Mild itching Verified 08/09/25 12:40 Seasonal Allergies: Uncoded Allergy Other Verified 08/09/25 12:40 Family History Grandfather Arthritis Grandmother Arthritis Aunt Breast cancer Diabetes Father Cancer Rectal Mother Cancer Thyroid Uncle Diabetes Brother Heart disease Surgical History History of breast surgery History of hysterectomy History of bunionectomy of left great toe History of total right knee replacement (TKR) Hx of arthroscopy of right knee Hx of eye surgery Hx of adenoidectomy Hx of tonsillectomy Social History Smoking Status: Former smoker pack-years: 3 Tobacco: How many years used: 15 alcohol intake: current alcohol intake frequency: holidays/special occasions only substance use type: does not use what type of physical activity do you participate in: walking and yoga frequency: 1-2 times per week seatbelt use: always ROS ROS ED ROS Narrative see HPI EXAM Physical Exam Narrative Exam Narrative: Vital signs: Reviewed General: Alert and orientedx3. No acute distress HEENT: Head is normocephalic and atraumatic, sinuses nontender, pupils equal round and reactive. Nares are patent. Oropharynx and throat exams normal. Neck: Supple without lymphadenopathy nontender Cardiovascular: Regular rate and rhythm, no murmurs. No rubs or gallops. Normal S1 and S2 Respiratory: Clear to auscultation bilaterally. No wheezes, rales, rhonchi Abdominal: Soft and nontender. Normal bowel sounds. No guarding or rebound. Nonsurgical abdomen Extremities: Negative Coombs test on the left. DP and PT pulses intact bilaterally. Sensation intact bilaterally. Motor intact, able to plantar and dorsiflex without difficulty. Able to flex and extend at knee and hip without pain. No erythema, asymmetric edema or warmth to the calf or leg. Mild tenderness to palpation of the upper calf. No tenderness to palpation of the popliteal region. Skin: No rash or redness. Neurological: Cranial nerves II through XII are grossly intact. Normal strength and sensation. Normal cerebellar function The rest of the physical exam is unremarkable Const Vital Signs: 08/09/25 12:38 08/09/25 19:34 08/09/25 21:41 Temperature 98.4 F 99.3 F H 98.2 F Temperature Source Oral Oral Pulse Rate 79 84 78 Respiratory Rate 16 16 16 Blood Pressure 149/87 H 152/81 H 157/78 H Blood Pressure Mean 107 104 104 Pulse Ox 97 97 98 Oxygen Delivery Method Room Air Room Air MDM MDM MDM Narrative Medical decision making narrative: Patient is a 70-year-old female presenting to the emergency department for a left calf injury. Patient was seen and examined. Vitals are stable. Patient resting bed comfortably no acute distress. Differential includes but is not limited to: Strain, DVT, fracture, Achilles rupture Coombs test negative. X-ray was ordered in triage prior to me seeing the patient and was reviewed by myself. There appears to be no fracture or dislocation. Radiology read with no fracture or dislocation evident. Patient given Toradol for analgesia. DVT ultrasound was ordered given the patient had pain in her calf 2 days before this and has a prior history of DVT. Ultrasound negative for DVT did show a Beltran's cyst however. This likely was causing the patient's pain. She may also have a calf strain. She was updated on the imaging findings. Recommended RICE therapy for home. Did apply a compression dressing and provided crutches to help with ambulation. Instructed to follow-up with PCP as soon as possible and return to the ED with any new or worsening symptoms. Patient discharged from the Emergency Department. I do not feel that the patient's evaluation reveals any acute reason for admission at this time. I instructed them to either follow-up with their primary care physician or promptly return to the Emergency Department for reevaluation should symptoms worsen or new symptoms develop. I explained what symptoms would indicate the need to return to the emergency department. Shared decision making was used. The patient voiced understanding of the treatment plan and is agreeable with it. Clinical impression: left calf strain History & Record Review Discussion w/independent historian: Patient and Significant other Radiography X-Ray: Read by ED Physician and No Fracture Diagnostic Testing: Clinical Impression(s) from Imaging Studies Tibia/Fibula X-Ray 08/09/25 13:40 IMPRESSION: Limited imaging of the left knee demonstrates at least mild degenerative changes. Limited imaging of the left ankle and hindfoot demonstrate moderately large inferior calcaneal spurring. Normal contour of the Achilles tendon is seen on lateral imaging. No radiopaque foreign body is seen. No fracture or dislocation is evident. If clinical concern persists, short-term follow-up imaging may be obtained to rule out a currently occult fracture. Reading Location: [id number] Venous Duplex 08/09/25 20:08 IMPRESSION: No deep venous thrombosis identified in the left lower extremity. Reading [facility] Discharge Plan Triage Chief Complaint: Lower Extremity Injury ED Provider: Erika Henderson Dx/Rx/DC Orders Clinical Impression: Beltran cyst, Calf pain Instructions: Self-Care for Strains and Sprains, Beltran's Cyst Popliteal, ED RICE Prescriptions: No Action levothyroxine 25 mcg capsule 137 mcg PO DAILY multivitamin Tablet 1 tab PO DAILY glucosamine-chondroitin 900 mg tablet 900 mg PO DAILY coenzyme Q10 [CoQ-10] 100 mg capsule 100 mg PO DAILY cinnamon bark [Cinnamon] 500 mg capsule 500 mg PO DAILY omega 1-xfy-drv-fish oil [Fish Oil] 300-1,000 mg capsule 1 cap PO DAILY magnesium 30 mg tablet 30 mg PO DAILY cholecalciferol (vitamin D3) 75 mcg (3,000 unit) tablet 50 mcg PO DAILY atorvastatin 10 mg tablet 10 mg PO DAILY trazodone 50 mg tablet 50 mg PO QHS PRN (Reason: insomnia) loratadine [Claritin] 10 mg tablet 10 mg PO DAILY (DME) Hydrocortisone 2.5%/lidocaine 5% suppository (cmpd) Suppository See Rx Instructions .Route Qty: 30 1RF Rx Instructions: insert 1 suppository twice daily. escitalopram oxalate 20 mg tablet 20 mg PO DAILY Primary Care Provider: Yonatan Courtney Referrals: Yonatan Courtney MD [Primary Care Provider, Family Practice] - 2 Days Activity Restrictions/Additional Instructions: Your evaluation in the Emergency Department did not reveal any acute reason for admission. However, I want to emphasize that you may be early in the course of a disease process or illness even if it is not present. For this reason you should follow-up within 24 hours for reevaluation with either your primary care physician or if necessary back here in the Emergency Department. You should return to the Emergency Department immediately if your symptoms worsen or new symptoms develop. Print Language: [place] Citizen Disposition Disposition: Home, Self Care Discharge Date/Time: 08/09/25 21:44
[2025-08-09 21:41] VITALS: BP 157/78; PULSE 78; RESP 16; TEMP 36.8; O2SAT 98
== END 2025-08-09 21:44 | disposition home or self-care (01) ==
PROVIDERS: Emergency Provider Student in an Organized Health Care Education/Training Program; PCP Family Medicine; Visit Provider Student in an Organized Health Care Education/Training Program
DX: S86.112A Strain of other muscle(s) and tendon(s) of posterior muscle group at lower leg level, left leg, initial encounter (principal); M71.22 Synovial cyst of popliteal space [Baker], left knee; X58.XXXA Exposure to other specified factors, initial encounter; Y93.89 Activity, other specified; F32.A Depression, unspecified; F41.9 Anxiety disorder, unspecified; Z79.890 Hormone replacement therapy; Z79.899 Other long term (current) drug therapy; Z87.891 Personal history of nicotine dependence; Z86.718 Personal history of other venous thrombosis and embolism
CPT/HCPCS: 73590; 93971; 96372; 99283

== ENCOUNTER → 2025-08-12 | Outpatient (CLI) | payer MEDICARE, SELFPAY ==
--- OUTSIDE RECORDS SUMMARY | 2025-04-29 11:47 | XMS RPT_ITS ---
Author Name Auto Generated Organization [facility] Care Team Providers Care Fire Captain Name Role Phone MAMI GAVIN DO Attending Unavailable PROBLEMS DATE TYPE CONDITION / CODE ATTENDING STATUS [facility] 04/29/2025 Final Diagnosis (Discharge) Vitamin D deficiency, unspecified / E55.9(ICD-10) MAMI GAVIN DO Active [facility] MAIN PROCEDURES No Procedure Records Found RESULTS CMP Collected: 04/29/2025 11:48 AM Status: F Source: [facility] MAIN TYPE CODE TESTS RESULT OUT OF RANGE REFERENCE UNITS LAB GLU(LOINC) Glucose Level 103 82-115 mg/dL LAB NA(LOINC) Sodium Level 139 136-145 mEq/L LAB K(LOINC) Potassium Level 3.9 3.5-5.0 mEq/L LAB CL(LOINC) Chloride 105 98-110 mEq/L LAB CO2(LOINC) CO2 26 22-32 mEq/L LAB EBAL(LOINC) Electrolyte Balance 8.0 4.0-15.0 mEq/L LAB BUN(LOINC) BUN 16.0 8.0-22.0 mg/dL LAB CRE(LOINC) Creatinine Lvl (s) 0.70 0.50-1.20 mg/dL Result Comment: Testing perf ormed on [employer] CH analyzer using enzymatic creatinine methodology. LAB BC(LOINC) BUN/Creatinine Ratio 22.9 High 10.0-22.0 ratio LAB CA(LOINC) Calcium Lvl 8.8 8.7-10.4 mg/dL LAB PROT(LOINC) Total Protein 6.7 5.7-8.2 G/dL LAB ALB(LOINC) Albumin Level 4.1 3.2-4.8 G/dL LAB GLB(LOINC) Globulin 2.6 2.5-4.2 G/dL LAB AG(LOINC) A/G Ratio 1.6 0.9-1.6 ratio LAB BILT(LOINC) Bili Total 0.70 0.20-1.20 mg/dL Result Comment: Use of this assay is not recommended for patients undergoing treatment with eltrombopag due to the potential for falsely elevated results. LAB AP(LOINC) Alk Phos 63 38-126 U/L LAB AST(LOINC) AST/SGOT 20 8-34 U/L LAB ALT(LOINC) ALT/SGPT 18 10-49 U/L Performed By: #### GFR, FT4, VIDH, THYAB, CMP, TSH #### [place] [id number] TSH Collected: 11:48 AM Status: F Source: [facility] MAIN TYPE CODE TESTS RESULT OUT OF RANGE REFERENCE UNITS LAB TSH(LOINC) TSH 1.297 0.550-4.780 mIU/mL Performed By: #### GFR, FT4, VIDH, THYAB, CMP, TSH #### [place] [address] FT4 Collected: 11:48 AM Status: F Source: [facility] MAIN TYPE CODE TESTS RESULT OUT OF RANGE REFERENCE UNITS LAB FT4(LOINC) Free T4 1.55 0.89-1.76 ng/dL Result Comment: Note - New Reference Range in effect 20 Performed By: #### GFR, FT4, VIDH, THYAB, CMP, TSH #### [place] [address] .GFR Collected: 11:48 AM Status: F Source: [facility] MAIN TYPE CODE TESTS RESULT OUT OF RANGE REFERENCE UNITS LAB eGFR(LOINC) Estimated Glomerular Filtration Rate 95 ml/min/1. 73sqm Result Comment: Stages of Chronic Kidney Disease (CKD) Stage Description eGFR(ml/min/1.73 sq.m.) CKD 1 Normal kidney function or >=90 normal kindney function with possible kidney damage (ex. Proteinuria) CKD 2 Kidney damage with mild loss 60-89 of kidney function CKD 3a Mild to moderate loss of kidney 45-59 function CKD 3b Moderate to severe loss of 30-44 of kindey function CKD 4 Severe loss of kidney function 15-29 CKD 5 Kidney failure <15 Note: (go live 2024) the eGFR calculation was updated to the 2020 CKD-EPI creatinine equation without a race factor to calculate the eGFR results. Performed By: #### GFR, FT4, VIDH, THYAB, CMP, TSH #### [place] [id number] VIDH Collected: 11:48 AM Status: F Source: [facility] MAIN TYPE CODE TESTS RESULT OUT OF RANGE REFERENCE UNITS LAB VIDH(LOINC) Vit. D 25-Hydroxy 40.1 ng/mL Result Comment: Interpretive Values Based on Total 25(OH)D: Severe Deficiency <20 ng/mL Mild to Moderate Deficiency 20-30 ng/mL Optimum Levels 30-100 ng/mL Toxicity Possible >100 ng/mL Performed By: #### GFR, FT4, VIDH, THYAB, CMP, TSH #### [address] [id number] THYAB Collected: 04/29/2025 11:48 AM Status: F Source: [facility] MAIN TYPE CODE TESTS RESULT OUT OF RANGE REFERENCE UNITS LAB THYRG(LOINC) Thyroglobulin Ab 305 High 15-60 un its/ml LAB MCRSO(LOINC) anti-Thyroid Peroxidase 3584 High 0-60 units/ml Performed By: #### GFR, FT4, VIDH, THYAB, CMP, TSH #### [place] [address] ALLERGIES No Allergies Records Found ENCOUNTERS ADMIT/DISCHARGE ACCOUNT NUMBER ADMITTING ENCOUNTER CLASS LOC ATION SOURCE 04/29/2025/ 5 [id number] Ambulatory ABuilding:[facility] MAIN PAYERS ENCOUNTER GUARANTOR PAYER SUBSCRIBER SOURCE 04/29/2025 DEREK BURGOSDOB: [id number] [place] [address]Rei: () Primary Insurance:[facility] Number: [id number] Date:[id number] Name:SCHUYLER [address] [address]YR: DEREK SHOOTSDOB: [id number] [facility] [place], [place] [address]Rkr: () (WP) [facility]
[2025-08-12 13:41] LABS: AST(SGOT) 19 U/L (<=31); Alanine Aminotransfer ALT/SGPT 14 U/L (<=34); Albumin, Serum 4.4 g/dL (3.4-4.8); Alkaline Phosphatase 65 U/L (35-104); Anion Gap 11 (5-15); BUN 15 mg/dL (4-19); BUN/Creat Ratio 18.6 RATIO (10-20); Calcium,Total 9.2 mg/dL (7.6-11.0); Carbon Dioxide 26.5 mmol/L (21.0-32.0); Chloride 102 mmol/L (98-108); Globulin 2.5 g/dL (2.2-4.2); Glucose 111 mg/dL (70-99); Potassium 4.2 mmol/L (3.3-5.1)
== END | disposition home or self-care (01) ==
LOC: MFPLAB 09:57
PROVIDERS: PCP Family Medicine; Visit Provider Family Medicine
DX: E78.5 Hyperlipidemia, unspecified (principal); R61 Generalized hyperhidrosis
CPT/HCPCS: 80053; 83036

== ENCOUNTER → 2025-09-26 | Outpatient (CLI) | payer MEDICARE, SELFPAY ==
[2025-09-26 18:40] LABS: Free T3 2.7 pg/mL (2.18-3.98)
== END | disposition home or self-care (01) ==
LOC: MFPLAB 14:33
PROVIDERS: PCP Family Medicine; Visit Provider Family Medicine
DX: E03.9 Hypothyroidism, unspecified (principal)
CPT/HCPCS: 36415; 84439; 84443; 84481